=== PATIENT | female | born 1975 | race African-American/Black ===

== ENCOUNTER 2021-01-21 14:21 | Emergency (ER) | payer BC ==
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
[2021-01-21 15:19] LABS: Absolute Lymphocytes (CBC) 2.7 K/uL (0.7-4.9); Basophils % 0.9 % (0-1.3); Hematocrit 33.5 % (36.0-45.0); Lymphocytes % 25.2 % (15.3-44.8); MPV 6.9 fL (7.6-11.3); RBC Red Blood Cell Count 4.57 M/uL (3.86-4.86)
[2021-01-21 15:22] LABS: Protime INR 0.95
[2021-01-21] MEDS ORDERED: KETOROLAC 30 MG/ML INJ ONE (15:24)
[2021-01-21] MEDS ORDERED: NA CHLORIDE 0.9% 500 ML ONE (15:24)
[2021-01-21 15:36] LABS: ALT/SGPT 21 U/L (12-78); AST/SGOT 13 U/L (15-37); Albumin 3.5 g/dL (3.4-5.0); Alkaline Phosphatase 81 U/L (45-117); BUN Blood Urea Nitrogen 12 mg/dL (7-18); Bicarbonate 26 mmol/L (21-32); Bilirubin Direct < 0.1 mg/dL (0-0.2); Bilirubin Total 0.3 mg/dL (0.2-1.0); Glucose Level 221 mg/dL (74-106); Magnesium 2.2 mg/dL (1.8-2.4); NT PRO-BNP 28 pg/mL (<125); Potassium 3.9 mmol/L (3.5-5.1); Protein, Total 8.2 g/dL (6.4-8.2); Sodium Level 137 mmol/L (136-145); Troponin (Emerg Dept Use Only) < 0.02 ng/mL (0.0-0.045)
[2021-01-21 16:00] LABS: SARS-COV-2 RT PCR NEGATIVE (NEGATIVE)
--- NOTE | 2021-01-21 16:03 | RAD REPORT ---
EXAM DESCRIPTION: RAD - Chest Single View - 01/21/2021 3:57 pm CLINICAL HISTORY: CHEST PAIN Chest pain. COMPARISON: No comparisons FINDINGS: Portable technique limits examination quality. The lungs are grossly clear. The heart is normal in size. No displaced fractures. IMPRESSION: No acute intrathoracic process suspected.
[2021-01-21 16:20] LABS: Urine Blood Negative (Negative); Urine Glucose 3+ (Negative); Urine Protein Trace (Negative); Urine Specific Gravity 1.025 (1.005-1.030); Urine pH 5.5 (5.0-7.0)
[2021-01-21 16:38] LABS: Urine Specific Gravity/Preg 1.025 (1.005-1.030)
[2021-01-21 17:02] LABS: Urine Bacteria LOADED /HPF (<20); Urine RBC NONE SEEN /HPF (NONE SEEN)
--- NOTE | 2021-01-21 17:20 | RAD REPORT ---
EXAM DESCRIPTION: CT - Chest For Pe Angio - 01/21/2021 4:40 pm CLINICAL HISTORY: Chest pain. Chest pain;SOB COMPARISON: <Comparisons> TECHNIQUE: CT angiogram of the pulmonary arteries was performed with MIP. All CT scans are performed using dose optimization technique as appropriate and may include automated exposure control or mA/KV adjustment according to patient size. FINDINGS: No evidence of pulmonary thromboembolism. No acute aortic finding demonstrated. The lungs are clear. No significant pericardial or pleural fluid. No concerning bony finding. IMPRESSION: No evidence of pulmonary thromboembolism. No acute lung findings.
[2021-01-21] MEDS ORDERED: CEFTRIAXONE/SWI 1gm 1 GM/10 ML SYR ONE (17:41)
--- NOTE | 2021-01-21 18:49 | ER ---
Nurse's Notes [facility] Name: Frida Arriola Age: 45 yrs Sex: Female : 1975 Arrival Date: 01/21/2021 Time: 14:23 Bed 5 Private MD: Diagnosis: Other chest pain;Urinary tract infection, site not specified Presentation: 01/21 14:32 Chief complaint: Patient states: fatigue, chest soreness with breathing, cough x 1 sv week. Coronavirus screen: Client denies travel out of the [place] in the last 14 days. Client presents with at least one sign or symptom that may indicate coronavirus-19. Standard/surgical mask placed on the client. Provider contacted for isolation considerations. Ebola Screen: No symptoms or risks identified at this time. Initial Sepsis Screen: Does the patient meet any 2 criteria? HR > 90 bpm. No. Patient's initial sepsis screen is negative. Does the patient have a suspected source of infection? No. Patient's initial sepsis screen is negative. Risk Assessment: Do you want to hurt yourself or someone else? Patient reports no desire to harm self or others. Onset of symptoms was January 2021. 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 Flu vaccine is not up to date. - Social history:: Smoking status: Patient denies any tobacco usage or history of. Screenin:36 Abuse screen: Denies threats or abuse. Denies injuries from another. Nutritional hb screening: No deficits noted. Tuberculosis screening: No symptoms or risk factors identified. Fall Risk None identified. Assessment: 15:35 General: Appears in no apparent distress. Behavior is calm, cooperative. Pain: Pain hb currently is 7 out of 10 on a pain scale. Neuro: Level of Consciousness is awake, alert, obeys commands, Oriented to person, place, time, situation. Cardiovascular: Reports chest pain, Patient's skin is warm and dry. Rhythm is regular. Respiratory: Respiratory effort is even, unlabored, Respiratory pattern is regular, symmetrical. GI: Reports nausea. : No signs and/or symptoms were reported regarding the genitourinary system. EENT: No signs and/or symptoms were reported regarding the EENT system. Derm: Skin is pink, warm \T\ dry. Musculoskeletal: Reports generalized weakness. 16:30 Reassessment: Patient appears in no apparent distress at this time. Patient and/or hb family updated on plan of care and expected duration. Pain level reassessed. Patient is alert, oriented x 3, equal unlabored respirations, skin warm/dry/pink. 17:53 Reassessment: Patient appears in no apparent distress at this time. No changes from hb previously documented assessment. Patient and/or family updated on plan of care and expected duration. Pain level reassessed. Patient is alert, oriented x 3, equal unlabored respirations, skin warm/dry/pink. 18:29 Reassessment: Patient appears in no apparent distress at this time. No changes from hb previously documented assessment. Patient and/or family updated on plan of care and expected duration. Pain level reassessed. Patient is alert, oriented x 3, equal unlabored respirations, skin warm/dry/pink. Vital Signs: 14:32 BP 113 / 78; Pulse 100; Resp 18; Pulse Ox 100% ; Weight 90.72 kg; Height 5 ft. 7 in. sv (170.18 cm); Pain 7/10; 15:36 BP 129 / 90; Pulse 90; Resp 17; Pulse Ox 99% on R/A; hb 16:30 BP 135 / 89; Pulse 87; Resp 15; Pulse Ox 99% ; hb 17:53 BP 135 / 84; Pulse 88; Resp 16; Pulse Ox 99% on R/A; hb 18:29 BP 141 / 99; Pulse 86; Resp 15; Pulse Ox 99% on R/A; hb 14:32 Body Mass Index 31.32 (90.72 kg, 170.18 cm) sv ED Course: 14:23 Patient arrived in ED. ds1 14:26 Timothy France PA is PHCP. cp 14:26 Bill Gamboa MD is Attending Physician. cp 14:33 Triage completed. sv 14:34 Arm band placed on. sv 15:00 Inserted saline lock: 20 gauge in right antecubital area, using aseptic technique. kj1 Blood collected. 15:00 Initial lab(s) drawn, by ca, sent to lab. kj1 15:34 Brianna Moody, RN is Primary Nurse. hb 15:36 Patient has correct armband on for positive identification. Bed in low position. Call hb light in reach. 15:37 Notified Nurse Practitioner and/or Physician Pipe Testing Technician of a critical lab result(s), sv [id number]. 15:37 LFT's Sent. sv 15:37 Magnesium Sent. sv 15:37 NT PRO-BNP Sent. sv 15:37 Basic Metabolic Panel Sent. sv 15:57 XRAY Chest (1 view) In Process Unspecified. EDMS 16:40 CT Chest For PE Angio In Process Unspecified. EDMS 18:52 No provider procedures requiring assistance completed. IV discontinued, intact, ss bleeding controlled, No redness/swelling at site. Pressure dressing applied. Administered Medications: 15:10 Drug: TORadol - (ketorolac) 15 mg Route: IVP; Site: right antecubital; hb 18:53 Follow up: Response: No adverse reaction; Pain is decreased ss 15:11 Drug: NS 0.9% 500 ml Route: IV; Rate: bolus; Site: right antecubital; hb 16:00 Follow up: IV Status: Completed infusion ss 17:28 Drug: Rocephin (cefTRIAXone) 1 grams Route: IV; Rate: calculated rate; Site: right ss antecubital; 17:30 Follow up: IV Status: Completed infusion; IV Intake: 500ml ss Intake: 17:30 IV: 500ml; Total: 500ml. Outcome: 18:48 Discharge ordered by . cp 18:52 Discharged to home ambulatory, with family. ss 18:52 Condition: good 18:52 Discharge instructions given to patient, family, Instructed on discharge instructions, follow up and referral plans. medication usage, Demonstrated understanding of instructions, follow-up care, medications, Prescriptions given X 2. 18:56 Patient left the ED. hb Addendum: 01/25/2021 13:17 Addendum: Culture Results: Positive urine culture. No further action required. Bacteria s s sensitive to prescribed antibiotic. Signatures: Dispatcher [employer] Holley Solorio RN RN Kirstin De Jesus ds1 Vira Martinez RN RN Timothy Rodriguez PA PA cp Baxter, Heather, RN RN hb Jackson, Kandis kj1 Corrections: (The following items were deleted from the chart) 01/21 15:34 15:33 Initial lab(s) drawn, by me, sent to lab. carlita kj1
--- NOTE | 2021-01-21 18:49 | EDPHYS ---
Physician Documentation [facility] Name: Frida Arriola Age: 45 yrs Sex: Female : 1975 Arrival Date: 01/21/2021 Time: 14:23 Bed 5 Private MD: ED Physician Bill Gamboa HPI: 01/21 14:50 This 45 yrs old Black Female presents to ER via Ambulatory with complaints of Chest cp Soreness, Weakness, Shortness Of Breath. 14:50 The patient or guardian reports chest pain that is located primarily in the anterior cp chest wall, bilaterally. 14:50 Onset: 1 week(s) ago. cp 14:50 The pain does not radiate. Associated signs and symptoms: Pertinent positives: cough, cp general weakness, Pertinent negatives: abdominal pain, diaphoresis, dizziness, lower extremity pain, lower extremity swelling, palpitations, syncope, vomiting. The chest pain is described as aching. Duration: The patient or guardian reports multiple episodes, that wax and wane. 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 Flu vaccine is not up to date. - Social history:: Smoking status: Patient denies any tobacco usage or history of. ROS: 14:55 Constitutional: Negative for body aches, chills, fever, poor PO intake. cp 14:55 Eyes: Negative for injury, pain, redness, and discharge. cp 14:55 ENT: Negative for ear pain, sore throat, difficulty swallowing, difficulty handling cp secretions. 14:55 Cardiovascular: Positive for chest pain, Negative for edema, palpitations. 14:55 Respiratory: Positive for cough, with no reported sputum, shortness of breath, Negative for wheezing. 14:55 Abdomen/GI: Negative for abdominal pain, nausea, vomiting, and diarrhea. 14:55 Neuro: Positive for weakness, Negative for altered mental status, dizziness, headache, syncope. 14:55 All other systems are negative. Exam: 14:55 ECG was reviewed by the Attending Physician. cp 15:00 Constitutional: The patient appears in no acute distress, alert, awake, cp non-diaphoretic, non-toxic, well developed, well nourished. 15:00 Head/Face: Normocephalic, atraumatic. cp 15:00 Eyes: Periorbital structures: appear normal, Conjunctiva: normal, no exudate, no cp injection, Sclera: no appreciated abnormality, Lids and lashes: appear normal, bilaterally. 15:00 ENT: External ear(s): are unremarkable, Nose: is normal, Mouth: Lips: moist, Oral mucosa: pink and intact, moist, Posterior pharynx: Airway: no evidence of obstruction, patent, Tonsils: are normal in appearance, swelling, is not appreciated, erythema, is not appreciated, exudate, is not appreciated. 15:00 Neck: ROM/movement: is normal, is supple, without pain, no range of motions limitations. 15:00 Chest/axilla: Inspection: normal, Palpation: crepitus, is not appreciated, tenderness, that is mild, of the anterior aspect of right upper chest, anterior aspect of left upper chest and mid-sternal area. 15:00 Cardiovascular: Rate: tachycardic, Rhythm: regular, Edema: is not appreciated, JVD: is not appreciated. 15:00 Respiratory: the patient does not display signs of respiratory distress, Respirations: normal, no use of accessory muscles, no retractions, labored breathing, is not present, Breath sounds: are clear throughout, no decreased breath sounds, no stridor, no wheezing. 15:00 Abdomen/GI: Inspection: abdomen appears normal, Palpation: abdomen is soft and non-tender, in all quadrants. 15:00 Back: pain, is absent, ROM is normal. 15:00 Skin: cellulitis, is not appreciated, no rash present. cp 15:00 Neuro: Orientation: is normal, Mentation: is normal, Motor: moves all fours, strength is normal. Vital Signs: 14:32 BP 113 / 78; Pulse 100; Resp 18; Pulse Ox 100% ; Weight 90.72 kg; Height 5 ft. 7 in. sv (170.18 cm); Pain 7/10; 15:36 BP 129 / 90; Pulse 90; Resp 17; Pulse Ox 99% on R/A; hb 16:30 BP 135 / 89; Pulse 87; Resp 15; Pulse Ox 99% ; hb 17:53 BP 135 / 84; Pulse 88; Resp 16; Pulse Ox 99% on R/A; hb 18:29 BP 141 / 99; Pulse 86; Resp 15; Pulse Ox 99% on R/A; hb 14:32 Body Mass Index 31.32 (90.72 kg, 170.18 cm) sv MDM: 14:33 Patient medically screened. cp 15:00 Differential diagnosis: abnormal EKG, acute myocardial infarction, acute pericarditis, cp chest wall pain, costochondritis, pleurisy, pneumonia, pneumothorax, pulmonary embolus. 18:47 Data reviewed: vital signs, nurses notes, lab test result(s), EKG, radiologic studies, cp CT scan, plain films. 18:47 Test interpretation: by ED physician or midlevel provider: ECG, plain radiologic cp studies. 18:47 ED course: VSS. Labs, EKG and radiology studies reviewed. Symptoms improved. Low cp suspicion for cardiac cause of chest pain. Will discharge to home for continued monitoring. 01/21 14:45 Order name: Basic Metabolic Panel cp 01/21 14:45 Order name: CBC with Diff; Complete Time: 15:22 cp 01/21 15:23 Interpretation: Normal except: HGB 10.8; HCT 33.5; MCV 73.2; MCH 23.5; PLT 496; RDW cp 17.4; MPV 6.9. 01/21 14:45 Order name: LFT's cp 01/21 14:45 Order name: Magnesium cp 01/21 14:45 Order name: NT PRO-BNP cp 01/21 14:45 Order name: PT-INR; Complete Time: 16:20 cp 01/21 14:45 Order name: Troponin (emerg Dept Use Only); Complete Time: 15:37 cp 01/21 14:45 Order name: D-Dimer; Complete Time: 16:20 cp 01/21 14:45 Order name: Basic Metabolic Panel; Complete Time: 15:37 EDMS 01/21 14:45 Order name: Liver (Hepatic) Function; Complete Time: 15:37 EDMS 01/21 14:45 Order name: Magnesium; Complete Time: 15:37 EDMS 01/21 14:45 Order name: NT PRO-BNP; Complete Time: 15:37 EDMS 01/21 14:45 Order name: XRAY Chest (1 view); Complete Time: 16:20 01/21 14:45 Order name: EKG; Complete Time: 14:46 01/21 14:45 Order name: Cardiac monitoring; Complete Time: 15:11 01/21 14:45 Order name: EKG - Nurse/Tech; Complete Time: 15:11 01/21 14:45 Order name: IV Saline Lock; Complete Time: 15:11 01/21 14:45 Order name: Labs collected and sent; Complete Time: 15:11 01/21 15:38 Order name: CT Chest For PE Angio; Complete Time: 17:25 01/21 17:25 Interpretation: Report reviewed. 01/21 16:00 Order name: COVID-19/FLU A+B; Complete Time: 16:20 EDPA 01/21 16:20 Order name: Urine Dipstick-Ancillary; Complete Time: 17:14 EDPA 01/21 17:14 Interpretation: Normal except: UGLUC 3+; UPROT Trace; U NIT Positive. 01/21 16:21 Order name: Urine Microscopic Only; Complete Time: 17:14 01/21 17:14 Interpretation: Normal except: UWBC 5-10; UBACT LOADED. 01/21 16:21 Order name: Urine --Ancillary (enter results); Complete Time: 17:14 01/21 17:03 Order name: Urine Culture [facility] 01/21 17:54 Order name: Troponin I 01/21 14:45 Order name: O2 Per Protocol; Complete Time: 15:11 01/21 14:45 Order name: O2 Sat Monitoring; Complete Time: 15:11 01/21 14:45 Order name: Urine Dipstick-Ancillary (obtain specimen); Complete Time: 17:22 01/21 14:45 Order name: Urine Test (obtain specimen); Complete Time: 17:22 cp EC:55 Rate is 96 beats/min. Rhythm is regular. WV interval is normal. QRS interval is normal. cp QT interval is normal. T waves are Inverted in leads III, aVR. Interpreted by me. Reviewed by me. Administered Medications: 15:10 Drug: TORadol - (ketorolac) 15 mg Route: IVP; Site: right antecubital; hb 18:53 Follow up: Response: No adverse reaction; Pain is decreased ss 15:11 Drug: NS 0.9% 500 ml Route: IV; Rate: bolus; Site: right antecubital; hb 16:00 Follow up: IV Status: Completed infusion ss 17:28 Drug: Rocephin (cefTRIAXone) 1 grams Route: IV; Rate: calculated rate; Site: right ss antecubital; 17:30 Follow up: IV Status: Completed infusion; IV Intake: 500ml ss Disposition: 18:58 Co-signature as Attending Physician, Bill Gamboa MD. rn Disposition: 01/21/21 18:48 Discharged to Home. Impression: Other chest pain, Urinary tract infection, site not specified. - Condition is Stable. - Discharge Instructions: Nonspecific Chest Pain, Urinary Tract Infection, Adult, Aspirin and Your Heart. - Prescriptions for Augmentin 875- 125 mg Oral Tablet - take 1 tablet by ORAL route every 12 hours for 10 days; 20 tablet. Diclofenac Sodium 75 mg Oral Tablet, Delayed Release (E.C.) - take 1 tablet by ORAL route 2 times per day; 20 tablet. - Medication Reconciliation Form, Thank You Letter, Antibiotic Education, Prescription Opioid Use form. - Follow up: Private Physician; When: 2 - 3 days; Reason: Recheck today's complaints. - Problem is new. - Symptoms have improved. Signatures: Dispatcher [employer] Holley Solorio, Bill Guthrie RN, MD MD rn Smirch, Shelby, RN RN Timothy France PA PA cp Brianna Moody RN RN hb Corrections: (The following items were deleted from the chart) 15:22 14:46 CORONAVIRUS+MR.LAB.BRZ ordered. EDPA EDPA 15:44 14:46 Influenza Screen (A \T\ B)+BA.LAB.BRZ ordered. EDPA EDMS 18:56 18:48 01/21/2021 18:48 Discharged to Home. Impression: Other chest pain; Urinary tract hb infection, site not specified. Condition is Stable. Forms are Medication Reconciliation Form, Thank You Letter, Antibiotic Education, Prescription Opioid Use. Follow up: Private Physician; When: 2 - 3 days; Reason: Recheck today's complaints. Problem is new. Symptoms have improved. cp
[2021-01-21 21:35] VITALS: BP 113/78; O2SAT 100
--- NOTE | 2021-01-22 07:15 | EKG ---
Test Date: 2021-01-21 Test Time: 14:54:12 Sweat Box Attendant: DELFINA MEASUREMENT RESULTS: Intervals: Rate: 96 NM: 166 QRSD: 88 QT: 354 QTc: 447 [place]: P: 58 NM: 166 QRS: 28 T: -3 INTERPRETIVE STATEMENTS: Normal sinus rhythm Minimal voltage criteria for LVH, may be normal variant Borderline ECG No previous ECG available for comparison Electronically Signed On 01-22-21 07:14:02 CDT by Johnny Lopez
== END 2021-01-21 18:56 | disposition home or self-care (01) ==
LOC: ER 14:21
DX: N39.0 Urinary tract infection, site not specified (principal); Z20.822 Contact with and (suspected) exposure to COVID-19; I10 Essential (primary) hypertension
CPT/HCPCS: 96361; 93005; 87088; 85025; 87086; 80048; 36415; 83735; 81025; 85610; 85379; 80076; 84484 ×2; 83880; 0240U; 71275; 71045; 96375; 96374; 99284; Q9967; J0696; J7040; 81003; 81015; 87077; 87186

== ENCOUNTER 2021-01-26 00:45 | Emergency (ER) | payer BC ==
--- OUTSIDE RECORDS SUMMARY | 2021-01-26 00:48 | XMS REPORT | Continuity of Care Document ---
:1975 Author Organization [facility] t Address [address] [place] [address] Care Team Providers Name Role Phone Logan [...] Tobacco use and 2019-10-30 2019-10-30 Never used [facility] ethodist exposure 00:00:00 00:00:00 Alcohol intake 2019-10-30 2019-10-30 Current drinker Josh on Buddhist 00:00:00 00:00:00 of alcohol (finding) Alcohol Comment 2019-03-30 2019-03-30 occasionally. [place] [facility] 00:00:00 00:00:00 Sex Ass[birth year] At [birth year] [facility] ethodist 00:00:00 00:00:00 Smoking Status Start Date Stop Date Source Never smoker [place] Kimberleeis Medications Ordered Filled Start Stop Current [...] times a day. gabapentin 2020-0 Yes 100mg [id number] Take 100 [place] (NEURONTIN) 1-19 [id number] mg by M ethodi 100 mg 01:42: [...] Scheduled 2021-05-13 INFLUENZA VACCINE Mark Anthony kang [facility] Test 00:00:00 [code = INFLUENZA VACCINE] Future Scheduled 1998 Screening for [place] [facility]od[facility] Test 00:00:00 malignant neoplasm of cervix (procedure) [code = 621760818] Future Scheduled 1995 Hepatitis C [place] Met [facility] Test 00:00:00 screening (procedure) [code = 834880450] Future Scheduled 1993 COVID-19 VACCINE (1) Yokasta dasilva [facility] Test 00:00:00 [code = COVID-19 VACCINE (1)] Encounters Start End Encounter Admission Attending Care Care Encounter Source Date/Time Date/Time Type Type Clinicians Facility Department ID 2018-10-30 Inpatient C SPECK, III, [facility] RAD [id number] [facility] 15:45:00 [facility] 2020-01-14 2020-01-14 Emergency E [facility] [id number] [facility] 08:51:00 08:51:00 2019-10-30 2019-10-31 Emergency [facility] [id number] [place] 00:00:00 00:00:00 BECCA Champagne [facility] 2019-10-28 2019-10-28 Outpatient E TIMA CHILDS [facility] ECC [id number] [place] 11:58:00 13:36:00 [facility] 2018-12-15 2018-12-15 Outpatient C SPECK, III, [facility] RAD [id number] [place] 10:37:00 [facility]:59:[facility] 2018-11-17 2018-11-17 Outpatient C SPECK, III, [facility] RAD [id number] [facility] 10:59:00 23:59:00 [facility] 2018-11-10 2018-11-10 Outpatient Alessandro TRIVEDI, [facility] RAD [id number] [place] 09:39:00 23:59:00 [facility] 2018-11-02 2018-11-02 Emergency E MARI, [facility] ECC [id number] [place] 12:49:00 15:49:00 [facility] Results Test Description Test Time Test Comments Results Result [facility] e Comments CT ABDOMEN AND 2019-10-28 CT abdomen and pelvis PELVIS WITH 13:09:15 with contrastLocation CONTRAST *OW* Code: [id number] HISTORY: [id number]: Abdominal painCOMPARISON: NoneTechnique: Helical CT of the [...] 27 U/L 14-97 [employer] 8 Panel *OW* [id number] 12:35:00 Test Item Value Reference Range Interpretation [...] *OW*2018-12-15 11:16:14Left clavicle series, 2 viewsLocation Code: [id number] history: Follow-up fractureComments: AP and l ordotic views of the left clavicle demonstrates nosignificant interval callus formation of the mildly displaced midclavicularfracture when compared to 11/17/18. Acromioclavicular joint is intact. Smallfocus of calcific tendinitis seen adjacent to the humeral head.Impression:1. Stable displaced midclavicular fracture without significant callusformation.XR CLAVICLE LEFT COPLETE 2 VIEWS *OW*2018-11-17 11:42:09Left clavicle series, 2 viewsLocation Code: [id number] history: midshaft fxComparison: 11/02/2018Comments: AP and lordotic views of the left clavicle were obtained. Middiaphyseal fracture with 2 full shaft width inferior displacement is unchanged.There is sclerosis of the fracture margins with no new callus formation.Demonstrate no acute fracture or malalignment. The acromioclavicular andglenohumeral joints are intact.Impression: Stable inferiorly displaced left mid clavicle fracture.WID-U/S [id number] 10:33:09Thyroid ultrasoundLocation code: [id number] history: THYROID NODComparison: NoneTechnique: Grayscaleand selective color [...] 14:42:43HISTORY: MVA, arm pain, chest painLocation code: [id number]: LEFT HUMERUS, 2 VIEWS.LEFT ELBOW, 2 VIEWS.COMPARISON: [...] 14:42:43HISTORY: MVA, arm pain, chest painLocation code: [id number]: LEFT HUMERUS, 2 VIEWS.LEFT ELBOW, 2 VIEWS.COMPARISON: [...] = PGS) NEGATIVE NEGATIVE CBC (INCLUDES AUTOMATED DIFFERENTIAL)*[id number] 13:26:00 Test Item Value Reference Range Interpretation [...]
[2021-01-26 01:21] LABS: Absolute Lymphocytes (CBC) 3.9 K/uL (0.7-4.9); Basophils % 0.1 % (0-1.3); Hematocrit 33.3 % (36.0-45.0); Lymphocytes % 36.1 % (15.3-44.8); MPV 6.7 fL (7.6-11.3); RBC Red Blood Cell Count 4.58 M/uL (3.86-4.86)
[2021-01-26] MEDS ORDERED: MEPERIDINE HCL 25 MG/ML SYR ONE (01:32)
[2021-01-26] MEDS ORDERED: ONDANSETRON 4 MG/2 ML VIAL ONE (01:32)
[2021-01-26 01:33] LABS: BUN Blood Urea Nitrogen 16 mg/dL (7-18); Bicarbonate 29 mmol/L (21-32); Glucose Level 237 mg/dL (74-106); Potassium 4.1 mmol/L (3.5-5.1); Sodium Level 138 mmol/L (136-145)
[2021-01-26] MEDS ORDERED: NA CHLORIDE 0.9% 1,000 ML ONE (01:33)
--- NOTE | 2021-01-26 02:36 | EDPHYS ---
Physician Documentation [facility] Name: Frida Arriola Age: 45 yrs Sex: Female : 1975 Arrival Date: 01/26/2021 Time: 00:46 Bed 6 Private MD: ED Physician Bill Gamboa HPI: 01/26 01:25 This 45 yrs old Black Female presents to ER via Wheelchair with complaints of headache, rn Dizziness. 01:25 The patient complains of pain to the top of head. The patient describes the headache as rn aching. Onset: The symptoms/episode began/occurred 3 day(s) ago. Associated signs and symptoms: Pertinent positives: dizziness, Pertinent negatives: fever, neck stiffness, paresthesias, Photophobia rash, vision changes, vision loss, vomiting, weakness, vertigo. Severity of symptoms: At its worst the pain was moderate, in the emergency department the pain is unchanged. Headache History: Denies prior headaches. The symptoms are alleviated by nothing. the symptoms are aggravated by nothing. The patient has not experienced similar symptoms in the past. The patient has been recently seen by a physician:. Reports seen in this ED recently, diagnosed with UTI, feeling better in terms of that, but now comes in for a few days of headache. Denies prior headaches. No head injury. No fever. Reports aching and radiates to neck. Reports pain is not letting her think straight. No hx of brain problems. No hx of brain aneurysm or tumor in family. . 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 - Social history:: Smoking status: Patient denies any tobacco usage or history of. - Family history:: not pertinent. - Hospitalizations: : No recent hospitalization is reported. ROS: 01:25 Constitutional: Negative for fever, chills, and weight loss, Eyes: Negative for injury, rn pain, redness, and discharge, Neck: Negative for injury, pain, and swelling, Cardiovascular: Negative for chest pain, palpitations, and edema, Respiratory: Negative for shortness of breath, cough, wheezing, and pleuritic chest pain, Abdomen/GI: Negative for abdominal pain, nausea, vomiting, diarrhea, and constipation, Back: Negative for injury and pain, : Negative for injury, bleeding, discharge, and swelling, MS/Extremity: Negative for injury and deformity, Skin: Negative for injury, rash, and discoloration, Neuro: Negative for weakness, numbness, tingling, and seizure. Exam: 01:25 Constitutional: Overweight female, rocking back and forth, moving all extremities. rn Head/Face: Normocephalic, atraumatic. Eyes: Pupils equal round and reactive to light, extra-ocular motions intact. Lids and lashes normal. Conjunctiva and sclera are non-icteric and not injected. Cornea within normal limits. Periorbital areas with no swelling, redness, or edema. Neck: Trachea midline, no thyromegaly or masses palpated, and no cervical lymphadenopathy. Supple, full range of motion without nuchal rigidity, or vertebral point tenderness. No Meningismus. Cardiovascular: Regular rate and rhythm. No pulse deficits. Respiratory: No increased work of breathing, no retractions or nasal flaring. Abdomen/GI: soft, non-tender Skin: Warm, dry, no rashes MS/ Extremity: Pulses equal, no cyanosis. Neuro: Awake and alert, GCS 15, oriented to person, place, time, and situation. Cranial nerves II-XII grossly intact. Motor strength 5/5 in all extremities. Sensory grossly intact. Vital Signs: 00:58 BP 120 / 75; Pulse 97; Resp 18; Temp 98; Pulse Ox 100% on R/A; Weight 90.72 kg; Height mg2 5 ft. 4 in. (162.56 cm); Pain 8/10; 02:30 BP 118 / 80; Pulse 80; Resp 18; Temp 98; Pulse Ox 100% on R/A; mg2 00:58 Body Mass Index 34.33 (90.72 kg, 162.56 cm) mg2 Juan Alberto Coma Score: 02:34 Eye Response: spontaneous(4). Verbal Response: oriented(5). Motor Response: obeys rn commands(6). Total: 15. MDM: 00:48 Patient medically screened. rn 02:34 Differential diagnosis: cluster headache, migraine, tension headache, vasomotor rn headache. Data reviewed: vital signs, nurses notes, lab test result(s), radiologic studies, CT scan, and as a result, I will discharge patient. Counseling: I had a detailed discussion with the patient and/or guardian regarding: the historical points, exam findings, and any diagnostic results supporting the discharge/admit diagnosis, lab results, radiology results, the need for outpatient follow up, to return to the emergency department if symptoms worsen or persist or if there are any questions or concerns that arise at home. Response to treatment: the patient's symptoms have markedly improved after treatment, and as a result, I will discharge patient. Special discussion: I discussed with the patient/guardian in detail that at this point there is no indication for admission to the hospital. It is understood, however, that if the symptoms persist or worsen the patient needs to return immediately for re-evaluation. ED course: Pt markedly improved, sleeping comfortably, stable vitals, afebrile, neg procal, normal wbc, will dc home with return precautions and pcp f/u. . 01/26 01:06 Order name: CBC with Diff rn 01/26 01:06 Order name: Basic Metabolic Panel rn 01/26 01:06 Order name: Procalcitonin rn 01/26 01:23 Order name: CBC with Automated Diff; Complete Time: 02:01 EDND 01/26 01:33 Order name: Basic Metabolic Panel; Complete Time: 02:01 EDND 01/26 02:00 Order name: Procalcitonin; Complete Time: 02:01 EDND 01/26 01:05 Order name: CT Head C Spine rn 01/26 01:05 Order name: IV Start; Complete Time: 01:19 rn Administered Medications: 01:20 Drug: NS 0.9% 1000 ml Route: IV; Rate: 1000 ml; Site: right antecubital; mg2 02:10 Follow up: Response: No adverse reaction; IV Status: Completed infusion; IV Intake: mg2 1000ml 01:20 Drug: Zofran (Ondansetron) 4 mg Route: IVP; Site: right antecubital; mg2 02:09 Follow up: Response: No adverse reaction mg2 01:21 Drug: Demerol (meperidine) 25 mg Route: IVP; Site: right antecubital; mg2 02:09 Follow up: Response: No adverse reaction mg2 Disposition: 01/26/21 02:36 Discharged to Home. Impression: Headache. - Condition is Stable. - Discharge Instructions: General Headache Without Cause. - Medication Reconciliation Form, Thank You Letter, Antibiotic Education, Prescription Opioid Use form. - Follow up: Private Physician; When: As needed; Reason: Recheck today's complaints, Re-evaluation by your physician. - Problem is new. - Symptoms have improved. Signatures: Dispatcher [employer] EDMS Bill Gamboa MD MD rn Gardose, Michele, RN RN mg2 Corrections: (The following items were deleted from the chart) 01:27 01:25 Constitutional: Negative for fever, chills, and weight loss, Eyes: Negative for rn injury, pain, redness, and discharge, Neck: Negative for injury, pain, and swelling, Cardiovascular: Negative for chest pain, palpitations, and edema, Respiratory: Negative for shortness of breath, cough, wheezing, and pleuritic chest pain, Abdomen/GI: Negative for abdominal pain, nausea, vomiting, diarrhea, and constipation, Back: Negative for injury and pain, MS/Extremity: Negative for injury and deformity, Skin: Negative for injury, rash, and discoloration, Neuro: Negative for weakness, numbness, tingling, and seizure, rn 02:43 02:36 01/26/2021 02:36 Discharged to Home. Impression: Headache. Condition is Stable. mg2 Forms are Medication Reconciliation Form, Thank You Letter, Antibiotic Education, Prescription Opioid Use. Follow up: Private Physician; When: As needed; Reason: Recheck today's complaints, Re-evaluation by your physician. Problem is new. Symptoms have improved. rn
--- NOTE | 2021-01-26 02:36 | ER ---
Nurse's Notes [facility] Name: Frida Arriola Age: 45 yrs Sex: Female : 1975 Arrival Date: 01/26/2021 Time: 00:46 Bed 6 Private MD: Diagnosis: Headache Presentation: 01/26 00:58 Chief complaint: Patient states: abhishek been having neck pain and headache on and off for mg2 long time but worse for the last 3 days. i'm on augmentin for UTI. Coronavirus screen: Client denies travel out of the [place] in the last 14 days. At this time, the client does not indicate any symptoms associated with coronavirus-19. Ebola Screen: No symptoms or risks identified at this time. Initial Sepsis Screen: Does the patient meet any 2 criteria? No. Patient's initial sepsis screen is negative. Does the patient have a suspected source of infection? No. Patient's initial sepsis screen is negative. Risk Assessment: Do you want to hurt yourself or someone else? Patient reports no desire to harm self or others. Onset of symptoms was January 24, 2021. 00:58 Method Of Arrival: Wheelchair mg2 00:58 Acuity: ISI 3 mg2 Triage Assessment: 01:01 General: Appears in no apparent distress. uncomfortable, Behavior is cooperative, mg2 restless. Pain: Complains of pain in head and nape. EENT: No signs and/or symptoms were reported regarding the EENT system. Neuro: Level of Consciousness is awake, alert, obeys commands, Oriented to person, place, time, situation. Cardiovascular: Capillary refill < 3 seconds Patient's skin is warm and dry. Respiratory: Airway is patent Respiratory effort is even, unlabored, Respiratory pattern is regular, symmetrical. GI: No signs and/or symptoms were reported involving the gastrointestinal system. : No signs and/or symptoms were reported regarding the genitourinary system. Derm: Skin is intact, is healthy with good turgor, Skin is pink, warm \T\ dry. normal. Musculoskeletal: Circulation, motion, and sensation intact. Capillary refill < 3 seconds. 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 - Social history:: Smoking status: Patient denies any tobacco usage or history of. - Family history:: not pertinent. - Hospitalizations: : No recent hospitalization is reported. Screenin:03 Abuse screen: Denies threats or abuse. Denies injuries from another. Nutritional mg2 screening: No deficits noted. Tuberculosis screening: No symptoms or risk factors identified. 01:03 Fall Risk None identified. mg2 Assessment: 01:02 General: see triage note. mg2 Vital Signs: 00:58 BP 120 / 75; Pulse 97; Resp 18; Temp 98; Pulse Ox 100% on R/A; Weight 90.72 kg; Height mg2 5 ft. 4 in. (162.56 cm); Pain 8/10; 02:30 BP 118 / 80; Pulse 80; Resp 18; Temp 98; Pulse Ox 100% on R/A; mg2 00:58 Body Mass Index 34.33 (90.72 kg, 162.56 cm) mg2 Juan Alberto Coma Score: 02:34 Eye Response: spontaneous(4). Verbal Response: oriented(5). Motor Response: obeys rn commands(6). Total: 15. ED Course: 00:46 Patient arrived in ED. cl3 00:48 Bill Gamboa MD is Attending Physician. rn 00:57 León Romero, LATONYA is Primary Nurse. mg2 01:00 Triage completed. mg2 01:02 Arm band placed on. mg2 01:03 Patient has correct armband on for positive identification. Door closed. Warm blanket mg2 given. 01:03 No provider procedures requiring assistance completed. mg2 01:15 Inserted saline lock: 20 gauge in right antecubital area, using aseptic technique. mg2 Blood collected. 02:40 IV discontinued, intact, bleeding controlled, No redness/swelling at site. Pressure mg2 dressing applied. 10:23 CT Head C Spine In Process Unspecified. EDMS Administered Medications: 01:20 Drug: NS 0.9% 1000 ml Route: IV; Rate: 1000 ml; Site: right antecubital; mg2 02:10 Follow up: Response: No adverse reaction; IV Status: Completed infusion; IV Intake: mg2 1000ml 01:20 Drug: Zofran (Ondansetron) 4 mg Route: IVP; Site: right antecubital; mg2 02:09 Follow up: Response: No adverse reaction mg2 01:21 Drug: Demerol (meperidine) 25 mg Route: IVP; Site: right antecubital; mg2 02:09 Follow up: Response: No adverse reaction mg2 Intake: 02:10 IV: 1000ml; Total: 1000ml. mg2 Outcome: 02:36 Discharge ordered by . rn 02:40 Discharged to home via wheelchair, with family. mg2 02:40 Condition: stable 02:40 Discharge instructions given to patient, family, Instructed on discharge instructions, follow up and referral plans. Demonstrated understanding of instructions, follow-up care. 02:43 Patient left the ED. mg2 Signatures: Dispatcher [employer] EDMS Bill Gamboa MD MD rn Gardose, Michele, RN RN mg2 Lewis, Charde cl3
[2021-01-26 02:56] VITALS: BP 120/75; TEMP 98; O2SAT 100
--- NOTE | 2021-01-26 11:03 | RAD REPORT ---
EXAM DESCRIPTION: Head C Spine Mpr Wo Con 01/26/2021 2:06 AM CDT CLINICAL HISTORY: 45 years, Female, headache, neck pain, non-traumatic, previous neck injury COMPARISON: None.. FINDINGS: Multiple transaxial tomograms of the brain were obtained from the base of the skull to the vertex without contrast. 2-D multiplanar reformats and the coronal and sagittal plane were performed and reviewed. Subsequently multiple axial CT images through the cervical spine were obtained at 2 mm slice thicknes s at 2 mm interval reconstruction. In addition 2-D multiplanar reformats and the sagittal coronal lanie ne were performed and reviewed. An individualized dose optimization technique, Automated Exposure Control, was utilized for the perfo rmed procedure. Head: Brain parenchyma as well as the villalobos and white matter differentiation demonstrate to be unremar kable. There is no midline shift and/or mass effect. There is no evidence for acute hemorrhage and/or infarction. Lateral ventricles and cisterns displace normal appearance. No intra or extra axial fluid collections were seen. The calvarium is intact with no evidence for fracture. The visualized po rtions of the paranasal sinuses and orbits demonstrate to be clear. C-spine: There is slight straightening of the cervical spine perhaps related to position and/or cervi nesha collar. The alignment, vertebral body heights, and disc spaces are normal. There is no evidence of fracture or subluxation. There is minimal anterior spondylosis with a questionable minimal decrea se intervertebral disc height at C5/C6. The spinal canal demonstrate no evidence for significant sten osis. Neural foramina demonstrate to be unremarkable. The uncovertebral joints demonstrate to be norm al. There is no prevertebral soft tissue swelling. Sagittal coronal reformatted images demonstrate no subluxation or bony abnormalities. IMPRESSION: NO ACUTE INTRACRANIAL HEMORRHAGE. GROSSLY UNREMARKABLE CT SCAN OF THE HEAD WITHOUT CONTRAST. CT CERVICAL SPINE NEGATIVE FOR FRACTURE OR SUBLUXATION. Electronically signed by: Denzel Evans MD 01/26/2021 2:09 AM CDT Due to temporary technical issues with the PACS/Fluency reporting system, reports are being signed by the in house radiologist without review as a courtesy to ensure prompt reporting. The interpreting r adiologist is fully responsible for the content of the report.
== END 2021-01-26 02:43 | disposition home or self-care (01) ==
LOC: ER 00:45
DX: R51.9 Headache, unspecified (principal); I10 Essential (primary) hypertension; E11.9 Type 2 diabetes mellitus without complications
CPT/HCPCS: 96361; 85025; 80048; 36415; 84145; 70450; 72125; 96375; 96374; 99284; J2175; J7030; J2405

== ENCOUNTER 2022-10-30 14:49 | Emergency (ER) | payer OTHER ==
--- OUTSIDE RECORDS SUMMARY | 2022-10-30 15:04 | XMS REPORT | Continuity of Care Document ---
:1975 Author Organization [facility] t Address [address] [place] [address] Care Team Providers Name Role Phone DI COTTON Primary Care Physician Unavailable DR DI COTTON Attending Clinician Unavailable [phone] Attending Clinician Unavailable [id number] Attending Clinician Unavailable DR KARTIK BORREGO Attending Clinician Unavailable [phone] Attending Clinician Unavailable DENZEL TRINIDAD Attending Clinician Unavailable LUCY RESENDIZ Attending Clinician Unavailable NILDA WILDER DR FRED [place] Attending Clinician Unavailable Nichole Ulloa MD Attending Clinician DR ALICIA SUBRAMANIAN Attending Clinician Unavailable NICHOLE ULLOA Attending Clinician Unavailable Clarissa HANKS, Taylor Attending Clinician Unavailable Betsy Levi MD Attending Clinician BETSY LEVI Attending Clinician Unavailable DR SONAL MERCEDES Attending Clinician UnavailNICHOLE Courtney Attending Clinician Unavailable DR GLYNN SPAULDING Attending Clinician Unavailable [phone] Attending Clinician Unavailable Denzel Trinidad MD Attending Clinician Bruce HARGROVE, Klaudia Jade Attending Clinician [phone] KLAUDIA BARRERA ABA Attending Clinician Unavailable Prema Guerra NP Attending Clinician [phone] NAIN RÍOS Attending Clinician Unavailable [phone] Attending Clinician Unavailable ISMAEL JIMENEZ Attending Clinician Unavailable BEATRIS HO Attending Clinician Unavailable Vic HARGROVE, Beatris Attending Clinician Ismael Jimenez MD Attending Clinician [phone] JOSUÉ VALDEZ Attending Clinician Unavailable [phone] Attending Clinician Unavailable MANNY SEGUNDO Attending Clinician Unavailable Manny Segundo MD Attending Clinician Kaela Lomax RN Attending Clinician Unavailable Carmel Jade MD Attending Clinician Biju Mendoza Attending Clinician [facility] Attending Clinician Unavailable Rianna Weinstein RN Attending Clinician Unavailable Antonio Valentine RN Attending Clinician Unavailable PREMA GUERRA Attending Clinician Unavailable Winnie Tipton RN Attending Clinician Unavailable AMEYA COFFEY Attending Clinician Unavailable Virtual, Surgeon Attending Clinician Unavailable Zain Dior Attending Clinician Unavailable Shaye Loza MD Attending Clinician [phone] SHAYE LOZA Attending Clinician Unavailable Maksim Rodriguez Attending Clinician Unavailable 3, [facility] Attending Clinician Unavailable Julien Sotomayor MA Attending Clinician Unavailable Pawan Hercules MD, Terry Macdnoald Attending Clinician [phone] LIZZ CHARLTON Attending Clinician Unavailable MACK Attending Clinician Unavailable Daniel Attending Clinician Unavailable MARINA BOYCE Attending Clinician Unavailable BECCA GARY Attending Clinician Unavailable DR TIMA CHILDS Attending Clinician Unavailable PEPPER TRIVEDI Attending Clinician Unavailable DR DOMINIC GUERRA Attending Clinician Unavailable BACCAM, DR SEVILLA Admitting Clinician Unavailable LESANTI, DR VERDUGO Admitting Clinician Unavailable DENZEL TRINIDAD Admitting Clinician Unavailable RESENDIZ, LUCY GODWIN Admitting Clinician Unavailable SPECK, III, DR YAAKOV MANCIA Admitting Clinician Unavailable MORIS, DR VARGAS Admitting Clinician Unavailable MERCEDES, DR SONAL BECK Admitting Clinician Unavailsapphire SPAULDING, DR MAKI Admitting Clinician Unavailable KHUSHBU, DR GILLETTE Admitting Clinician Unavailable FOHuberT, DR MOSES Admitting Clinician Unavailable MACK Admitting Clinician Unavailable Johnny_Zaina Admitting Clinician Unavailable AMADEO, DR ALFRED Admitting Clinician Unavailable PEPPER TRIVEDI Admitting Clinician Unavailable ARTEMIO, DR DOMINIC Chaves Admitting Clinician Unavailable Payers Payer Name Policy Type Policy Number Effective Date Expiration Date S ource BCBS/BLUE [id number] ADVANTAGE-HMO - OP BCBS/[place]UE [id number] ADVANTAGE-HMO - OP BCBS ADV HMO [id number] 2021 EXCHANGE 00:00:00 0345 [id number] 2022 00:00:00 BLUE ADVANTAGE [id number] 2021 HMO-MARKETPLACE - 00:00:00 BCBS [id number] 2022 00:00:00 [place] [id number] 2020 ADVANTAGE (HMO) 00:00:00 Problems Condition Condition Condition Status Onset Resolution Last Treating Co mments Source Name Details Category Date Date Treatment Clinician Date Hepatocell Hepatocell Disease Active 2021-[address] ular ular 2-23 [facility] carcinoma carcinoma 00:00: Medi nesha 00 Center Abnormal Abnormal Disease Active 2021[facility] liver liver [facility]23 [facility] enzymes enzymes 00:00: Medical 00 Center Umbilical Umbilical Disease Active Last [facility] hernia hernia 7- [facility] 00:00: t & Plan: Medical 00 [facility] g of this note might be different from the original. She has a small and reducible umbilical hernia which is causing her to have pain near the umbilicus . We will refer her to Dr. Bridget Perry for hernia repair. Recommend use of abdominal binder with activity and limiting heavy lifting. Post-opera Post-opera Disease Active Last [facility] complicati [facility]: t & Plan: Medical on on [facility] g of this note might be different from the original. She continues to have numbness surroundi ng her abdominal incision. Numbness resulted in accidenta l burn on her abdomen while cooking. Recommend continued precautio ns due to areas of numbness. Sore Sore Disease Active Last [facility] throat throat 02-07 [facility] 00:00: t & Plan: Medical 00 [facility] g of this note might be different from the original. We encourage d her to follow up with PCP for throat culture and further evaluatio n of sore throat. She is currently taking Nyquil to assist with pain. DVT (deep DVT (deep Disease Active [facility] venous venous 18 [facility] thrombosis thrombosis 00:00: t & Plan: Medical ) ) 00 [facility] g of this note might be different from the original. She will continue to follow up with Hematolog y for managemen t of anticoagu lation. Bilateral Bilateral Disease Active [facility] extremity extremity 00:00: t & Plan: M edical edema edema 00 [facility] g of this note might be different from the original. Trace bilateral lower extremity edema present on exam. She has been taking lasix to assist with diuresis. She reports good fluid intake. Wearing compressi on garments at home. We will refill additiona l one week supply of Lasix today if labs are WDL. Acute Acute Disease Active [facility] blood loss blood loss 3-30 [facility] anemia anemia 00:00: Medical [place] Hyperlipid Hyperlipid Disease Active [facility] emia emia 3-30 [facility] 00:00: Medical 00 [place] Essential Essential Disease Active Last [facility] hypertensi hypertensi 3-30 [facility] on on 00:00: t & Plan: Medical 00 [facility] g of this note might be different from the original. Continue to take blood pressure medicatio ns as prescribe d. Follow up with PCP as scheduled . Anxiety Anxiety Disease Active [facility] 3-30 [facility] 00:00: Medical 00 [place] Acute Acute Disease Active Last [facility] post-opera post-opera 3-30 [facility] tive pain tive pain 00:00: t & Plan: M edical 00 [facility] g of this note might be different from the original. She reports pain at the incision since her operation . There has been difficult ies with finding an appropria te regimen to manage pain. She is taking Rupert as needed and Tylenol at this time. We recommend she no longer use Rupert and start alternati ng Tylenol #3 and Tylenol to assist with pain control. We also discussed splinting abdomen, and increasin g physical activity as able. Nausea Nausea Disease Active [facility] 3-30 [facility] 00:00: Medical [address] [place] [address] Acute Acute Disease Active Last [facility] respirator respirator 3-30 [facility] y y 00:00: t & Plan: Medical insufficie insufficie [address] [place] [address] ncy ncy g of this note might be different from the original. She no longer requires supplemen nataliya oxygen and reports no shortness of breath in clinic today. Hyperchlor Hyperchlor Disease Active [facility] emia emia 3-30 [facility] 00:00: Medical 00 [place] Hypophosph Hypophosph Disease Active [facility] atemia atemia 3-30 [facility] 00:00: Medical 00 [place] Diabetic Diabetic Disease Active [facility] neuropathy neuropathy 3-30 [facility]ie k[facility] 00:00: Medical [address] [place] [address] Leukocytos Leukocytos Disease Active [facility] is is 3-30 [facility] 00:00: t & Plan: Medical [address] [place] [address] g of this note might be different from the original. WBC continues to increase. Patient reports fevers. We will obtain cross sectional imaging to rule out intra-abd ominal infection . H/O H/O Disease Active Last [facility] resection resection 329 Ass[facility] L ukes of liver of liver 00:00: t & Plan: Med ical [address] [place] [address] g of this note might be different from the original. She will continue to follow up with Oncology for managemen t and treatment of biopsy proven HCC. We will plan to obtain cross sectional imaging every three months to continue to monitor. Planning to have MRI this afternoon . Hepatocell Hepatocell Disease Active [facility] 3-11 [place] carcinoma carcinoma 00:00: of (HCCode) (HCCode) 00 Medici n e Preop Preop Disease Active Overview: [facility] cardiovasc cardiovasc 2 [facility] ular exam ular exam 00:00: g of this o f 00 note Medicin might be e different from the original. Pt with multiple cardiac risk factors requiring pre-op cardiac clearance PLAN:1. Schedule echocardi ogram to evaluate LVEF due to SOB and valvular heart diseaese Sinus Sinus Disease Active Overview: [facility] tachycardi tachycardi 11-21 [facility] a a 00:00: g of this of note Medicin might be e different from the original. Hx of Sinus tachycard ia on toprol xl 100 mgPLAN:1. Check labs including TSH and CBC to evaluate cause2. Check echo3. Continue current medicatio ns. Essential Essential Disease Active Overview: [facility] hypertensi hypertensi 11-21 [facility] on on 00:00: g of this note Medicin might be e different from the original. HTN controlle d on current medicatio ns.PLAN:1 . Continue lisinopri l-hztc and toprol xl. Pre-op Pre-op Disease Active Last [facility] examinatio examinatio 2-03 [facility] kang n 00:00: t & Plan: Medical [address] [place] [address] g of this note might be different from the original. She has been cleared by Rupesh feliciano - Dr. Stark. She is pending cardiolog y clearance from Dr. Villalta - Cardiolog y. Diabetes Diabetes Disease Active [facility] 2-[facility] 00:00: t & Plan: Medical [address] [place] [address] g of this note might be different from the original. Se reports blood glucoses are well controlle d on current regimen. She will continue to follow up with PCP. Liver Liver Disease Active Last [facility] lesion lesion 5-19 [facility]men [facility] 00:00: t & Plan: Medical [address] [place] [address] g of this note might be different from the original. She will continue to follow up with Oncology for managemen t and treatment of biopsy proven HCC. We will plan to obtain cross sectional imaging every three months to continue to monitor. Immunity Immunity Disease Active [facility] testing testing 00:00: t & Plan: Medic al [address] [place] [address] g of this note might be different from the original. All patients with liver disease, regardles s of etiology, should be immunized to prevent hepatitis A and hepatitis B if they are not already immune. We will test for immunity to both viruses - vaccine recommend ations will follow. Adnexal Adnexal Disease Active Last [facility] St mass mass 02-28 Ass[facility]men [facility] 00:00: t & Plan: Medical [address] [place] [address] g of this note might be different from the original. CT shows right adenexa solid mass which is concernin g for ovarian neoplasm vs. Fibroid. Continue to follow up with Gynecolog y for further investiga tion. Obesity Obesity Disease Active Last [facility] 02-28 [facility] 00:00: t & Plan: Medical [address] [place] [address] g of this note might be different from the original. The patient's current BMI is 34. Obesity is an establish ed risk factor for vascular complicat ions (ie coronary artery disease, cerebrova scular disease, periphera l vascular disease), osteoarth ritis, pulmonary disease, as well as the developme nt of non-alcoh olic fatty liver disease and the risk for non-alcoh olic steatohep atitis. We have recommend ed a structure d weight loss program (10% body weight initially ), along with dietary modificat ions and regular exercise for overall good health and to minimize the risk of obesity -related surgical complicat ions. We recommend follow up with Bariatric s to discuss possible gastric sleeve or other surgical options for weight loss. She will follow up with PCP for referral. Allergies, Adverse Reactions, Alerts Allergy Allergy Status Severity Reaction(s) Onset Inactive Treating Comm ents Source Name Type Date Date Clinician No Known DA Active [facility] Allergie [facility] s No Known MA Active UNKNOWN [facility] No Known MA Active UNKNOWN [facility] No Known MA Active UNKNOWN [facility] NO KNOWN Allergy Active [facility] Family History Family Member Diagnosis Comments Start Date Stop Date Source Natural father Diabetes [facility] Natural mother Diabetes [facility] Natural mother Hypertension [facility] Natural sister Diabetes [facility] Natural sister Hypertension [facility] Social History Social Habit Start Date Stop Date Quantity Comments Source History [facility] Alcohol Std Drinks Medici ne History [facility] of Alcohol Binge Medicine Alcohol intake 2022-10-09 2022-10-09 Ex-drinker [facility] 00:00:00 00:00:00 (finding) [facility] Exposure to 2022-05-07 2022-05-17 Not sure [facility] e of SARS-CoV-2 (event) 00:00:00 11:21:00 Medici ne History [facility] 2021-10-24 2021-10-24 1 [facility] of Alcohol Frequency 00:00:00 00:00:00 Medicin e Tobacco use and 2021-02-26 2021-02-26 Never used [facility] St Angie ch exposure 00:00:00 00:00:00 [facility] Alcohol Comment 2019-03-30 2019-03-30 occasionally. Method ist 00:00:00 00:00:00 Hospital Sex Assigned At [birth year] SANDEE Jones 00:00:00 00:00:00 [facility] Smoking Status Start Date Stop Date Source Never smoker [facility] Medications Ordered Filled Start Stop Current Ordering Indication Dosage Frequency Signature Comments Components Source Medication Medication Date Date Medication? Clinician (SIG) Name Name insulin 2021-[address] [facility] 70/30, 2-28 subcutaneo [facility] insulin 10:52: usly 2 Medical NPH-insulin 33 (two) Center regular, times (HumuLIN daily 70/30) 100 before unit/mL meals. (70-30) injection metFORMIN 2021-10 Yes 1000mg Take 1,[address] [facility] (GLUCOPHAGE 2-28 mg by [facility] ) 1000 MG 10:52: mouth 2 Medic al tablet 33 (two) Center times daily with breakfast and dinner. hydrOXYzine 2022-1 Yes 25mg Take [address] [facility] (ATARAX) 25 2-28 by mouth Luke s MG tablet 10:52: every 8 Medic al 33 (eight) Center hours as needed for Itching. losartan-hy 2021-10 Yes 1{tbl} QD Take [address] droCHLOROth 2-28 tablet by Corina fleming iazide 10:52: mouth Medical (HYZAAR) 33 daily. Center 50-12.5 mg per tablet lisinopriL 2021-10- No 20mg Take [address] [facility] (PRINIVIL,Z 12-05 by mouth. Angie kes ESTRIL) 20 09:15: 00:00 Medica l MG tablet 33 :00 Center cholestyram 2021-10- Yes Cholestasis 1{packe Q.[id number] Take [address] [facility] ine 12-04 t} [id number] packet by Corina fleming (QUESTRAN) 00:00: 23:59 3D mouth 3 Med ical 4 gram PwPk 00 :00 (three) Cente r packet times daily Please do not take any food or medication s 2 hours prior to and 2 hours after this medication . ursodioL 2021-10- Yes Cholestasis 300mg Q.5D Take [address] (ACTIGALL) 12-04 capsule [facility] 300 mg 00:00: 23:59 (300 mg Medical capsule 00 :00 total) by Center mouth 2 (two) times daily. INSULIN ASP Yes 30U Inject 30 [facility] PROT & ASP, 8-05 Units into Co llege HUM, 11:36: the skin of (70-30) 100 57 two times Med icin UNIT/ML daily. e SUSP apixaban 2021- No 5mg Q.5D Take [address] (ELIQUIS) 5 4-18 07-25 tablet (5 Angie kes mg Tab 00:00: 23:59 mg total) Medic al tablet 00 :00 by mouth 2 Center (two) times daily for 98 days. acetaminoph 2021- No Generalized 1{tbl} Take [address] [facility] en-codeine 4-18 04-28 abdominal tablet by Josr (TYLENOL 00:00: 23:59 pain mouth Medical #3) 300-30 00 :00 every 6 Center mg per (six) tablet hours as needed for Pain for up to 10 days. Max Daily Amount: 4 tablets furosemide 2021- No Generalized 40mg Take [address] (Lasix) 40 01-28 04-25 abdominal tablet (40 [facility] MG tablet 00:00: 23:59 pain mg total) Me dical 00 :00 by mouth Center daily as needed (as needed for leg swelling) for up to 7 days. clindamycin 2021- No 300mg Q.[id number] Take [address] [facility] (CLEOCIN) 01-23-13 [id number] mg by Angie kes 300 MG 09:00: 00:00 3D mouth 3 Medical capsule 22 :00 (three) Center times daily. fenofibrate 2021- No 145mg QD Take [address] [facility] (TRICOR) 01-23-13 mg by [facility] 145 MG 09:00: 00:00 mouth Medical tablet 22 :00 daily. Center HYDROcodone 2021- No 1{tbl} Take [address] -acetaminop 01-2323 tablet by Angie carmichael hen (NORCO 00:00: 23:59 mouth Medic al 10-325) 00 :00 every 6 Center 10-325 mg (six) per tablet hours as needed for up to 10 days. Max Daily Amount: 4 tablets simethicone 2021- No 80mg Q.25D Take [address] (MYLICON) 01-2323 tablet (80 Corina es 80 MG 00:00: 23:59 mg total) Medica l chewable 00 :00 by mouth 4 Cente r tablet (four) times daily for 10 days. amoxicillin 2021- No 1{tbl} Q.5D Take [address] -clavulanat 01-23-20 tablet by Angie carmichael e 00:00: 23:59 mouth 2 Medical (AUGMENTIN) 00 :00 (two) Center 875-125 mg times per tablet daily for 7 days. furosemide 2021- No 40mg Take [address] [facility] [facility] (Lasix) 40 01-23-18 tablet (40 Angie kes MG tablet 00:00: 00:00 mg total) Me dical 00 :00 by mouth Center daily as needed (as needed for leg swelling) for up to 7 days. apixaban 0 2021- No 10mg Q.5D Take [address] [facility] (ELIQUIS) 5 4-13 04-17 tablets Luke s mg Tab 00:00: 23:59 (10 mg Medical tablet 00 :00 total) by Center mouth 2 (two) times daily for 4 days. HUMALOG 100 Yes INJECT 10 [facility] UNIT/ML 2-16 UNITS College injection 00:00: SUBCUTANEO of 00 USLY THREE Medicin TIMES e DAILY fenofibrate Yes 145mg Take 145 [facility] (TRICOR) 2-15 mg by [place] 145 MG 00:00: mouth of tablet 00 daily. Medicin e INSULIN ASP Yes 30U Inject 30 [facility] PROT & ASP, 2-09 Units into Co llege HUM, 11:25: the skin of (70-30) 100 20 two times Med icin UNIT/ML daily. e SUSP INSULIN ASP Yes 30U Inject 30 [facility] PROT & ASP, 1-12 Units into Co llege HUM, 15:21: the skin of (70-30) 100 56 two times Med icin UNIT/ML daily. e SUSP metformin Yes 1000mg Take 1,000 [facility] (GLUCOPHAGE 1-08 mg by [place] -XR) 500 MG 00:00: mouth two o f XR tablet 00 times Medicin daily. e metformin 2021-0 Yes 1000mg Take 1,000 [facility] MG 00:00: mouth two o f XR tablet 00 times Medicin daily. e metformin 2021-0 Yes 1000mg Take 1,000 [facility] (GLUCOPHAGE 1-08 [facility] MG 00:00: mouth two o f XR tablet 00 times Medicin daily. e FARXIGA 10 2020-10 Yes 10mg Take 10 mg [facility] MG TABS 2-29 by mouth [place] 00:00: daily. of Medicin e FARXIGA 10 2020-10 Yes 10mg Take 10 mg [facility] MG TABS 2-29 by mouth [place] 00:00: daily. of Medicin e FARXIGA 2020-10 Yes 10mg Take 10 mg [facility] MG TABS 2-29 by mouth College 00:00: daily. of 00 Medicin e lisinopril- 2020-10 Yes 1{tbl} Take 1 [facility] hydrochloro 1-26 Tablet by Col lege thiazide 00:00: mouth of (PRINZIDE, daily. Medicin ZESTORETIC) e 20-25 MG per tablet lisinopril- 2020-10 Yes 1{tbl} Take 1 [facility] hydrochloro 1-26 Tablet by Col lege thiazide 00:00: mouth of (PRINZIDE, daily. Medicin ZESTORETIC) e 20-25 MG per tablet lisinopril- 2020-10 Yes 1{tbl} Take 1 [facility] hydrochloro 1-26 Tablet by Col lege thiazide 00:00: mouth of (PRINZIDE, daily. Medicin ZESTORETIC) e 20-25 MG per tablet Farxiga 10 2020-0 Yes 10mg QD Take [address] mg tablet - by mouth [facility] 00:00: daily. [place] [address] Center clonazePAM 2020-0 Yes .5mg Take 0.[address] [facility] [facility] (KlonoPIN) 4-21 mg by [facility] 0.5 MG 00:00: mouth 2 Medical tablet 00 (two) Center times daily as needed for anxiety. gabapentin 2020-0 Yes 300mg Q.5D Take [address] (NEURONTIN) 4-21 mg by [facility] 300 MG 00:00: mouth 2 Medical capsule 00 (two) Center times daily. clonazepam 2020-0 Yes .5mg Take 0.5 [facility] (KLONOPIN) 4-21 mg by [place] 0.5 MG 00:00: mouth as of tablet 00 needed. Medicin e gabapentin 2020-0 Yes 300mg Take 300 [facility] (NEURONTIN) 4-21 mg by [facility] 300 MG 00:00: mouth two of capsule 00 times Medicin daily. e clonazepam 2020-0 Yes .5mg Take 0.5 [facility] (KLONOPIN) 4-21 mg by College 0.5 MG 00:00: mouth as of tablet 00 needed. Medicin e gabapentin 2020-0 Yes 300mg Take 300 [facility] (NEURONTIN) 4-21 mg by College 300 MG 00:00: mouth two of capsule 00 times Medicin daily. e clonazepam 2020-0 Yes .5mg Take 0.5 [facility] (KLONOPIN) 4-21 mg by [place] 0.5 MG 00:00: mouth as of tablet 00 needed. Medicin e gabapentin 2020-0 Yes 300mg Take 300 [facility] (NEURONTIN) 4-21 mg by College 300 MG 00:00: mouth two of capsule 00 times Medicin daily. e metoprolol 2020-0 Yes 100mg QD Take [address] succinate 4-16 mg by [facility] (TOPROL-XL) 00:00: mouth Medic al 100 MG 24 00 daily. Center hr tablet metoprolol 2020-0 Yes 100mg Take 100 [facility] (TOPROL-XL) 4-16 mg by [place] 100 MG XL 00:00: mouth of tablet 00 daily. Medicin e metoprolol 2020-0 Yes 100mg Take 100 [facility] (TOPROL-XL) 4-16 mg by [place] 100 MG XL 00:00: mouth of tablet 00 daily. Medicin e metoprolol 2020-0 Yes 100mg Take 100 [facility] (TOPROL-XL) 4-16 mg by [place] 100 MG XL 00:00: mouth of tablet 00 daily. Medicin e metFORMIN 2020-0 2- No 1000mg Q.5D Take 1,[address] (GLUCOPHAGE 4-16 04-13 mg by [facility] -XR) 500 MG 00:00: 00:00 mouth 2 Me dical 24 hr 00 :00 (two) Center tablet times daily. metoprolol 2020-0 Yes 100mg Q.5D Take 100 Me thodi tartrate 1-[address] (LOPRESSOR) 01:42: mouth 2 Hos pily 100 mg 17 (two) l tablet times a day. gabapentin 2020-0 Yes 100mg Q.[id number] Take 100 [facility] (NEURONTIN) 1-19 [id number] mg by s t 100 mg 01:42: 3D mouth 3 Hospita capsule 17 (three) l times a day. metFORMIN 2020-0 Yes 1000mg Q.5D Take 1,000 [facility] (GLUCOPHAGE 1-[address] ) 1,000 mg 01:42: mouth 2 Hosp connie tablet 17 (two) l times a day with meals. lisinopril 2020-0 Yes 20mg QD Take 20 mg M ethodi (PRINIVIL) 1-[address] 20 mg 01:42: daily. Hospita tablet 17 l leuprolide 2020-0 Yes 3.75mg Q28D Inject [facility]co[facility] (LUPRON) 1-[address] 3.75 mg 01:42: into the Hospit a injection 17 shoulder, l thigh, or buttocks every 28 days. clonazepam clonazepam No clonazepam [place] 0.5 mg 0.5 mg 0.5 mg da tablet TAKE tablet TAKE tablet Medical 1 TABLET BY 1 TABLET BY TAKE 1 Group MOUTH TWICE MOUTH TWICE TABLET BY DAILY DAILY MOUTH NEEDED FOR NEEDED FOR TWICE ANXIETY ANXIETY DAILY NEEDED FOR ANXIETY escitalopra escitalopra No escitalopr [place] m 5 mg m 5 mg am 5 mg da tablet TAKE tablet TAKE tablet Medical 1 TABLET BY 1 TABLET BY TAKE 1 Group MOUTH ONCE MOUTH ONCE TABLET BY DAILY DAILY MOUTH ONCE DAILY Farxiga 10 Farxiga 10 No Farxiga 10 [facility] mg tablet mg tablet mg tablet da TAKE 1 TAKE 1 TAKE 1 Medical TABLET BY TABLET BY TABLET BY Group MOUTH ONCE MOUTH ONCE MOUTH ONCE DAILY DAILY DAILY gabapentin gabapentin No gabapentin [facility] 300 mg 300 mg 300 mg da capsule capsule capsule Medica l TAKE 1 TAKE 1 TAKE 1 Group CAPSULE BY CAPSULE BY CAPSULE BY MOUTH TWICE MOUTH TWICE MOUTH DAILY DAILY TWICE DAILY hydroxyzine hydroxyzine No hydroxyzin [facility] HCl 25 mg HCl 25 mg e HCl 25 d a tablet TAKE tablet TAKE mg tablet Medical 1 TABLET BY 1 TABLET BY TAKE 1 Group MOUTH EVERY MOUTH EVERY TABLET BY 8 HOURS 8 HOURS MOUTH NEEDED FOR NEEDED FOR EVERY 8 ANXIETY ANXIETY HOURS NEEDED FOR ANXIETY ibuprofen ibuprofen No ibuprofen [facility] 800 mg 800 mg 800 mg da tablet TAKE tablet TAKE tablet Medical 1 TABLET BY 1 TABLET BY TAKE 1 Group MOUTH EVERY MOUTH EVERY TABLET BY 8 HOURS 8 HOURS MOUTH NEEDED FOR NEEDED FOR EVERY 8 PAIN (TAKE PAIN (TAKE HOURS WITH FOOD WITH FOOD NEEDED FOR AND WATER) AND WATER) PAIN (TAKE WITH FOOD AND WATER) insulin insulin No insulin [facility] r aspar aspar aspar da prt-insulin prt-insulin prt-insuli Medical aspart 100 aspart 100 n aspart Group unit/mL unit/mL 100 (70-30) (70-30) unit/mL subcutaneou subcutaneou (70-30) s soln s soln subcutaneo INJECT 30 INJECT 30 us soln UNITS UNITS INJECT 30 SUBCUTANEOU SUBCUTANEOU UNITS SLY TWICE SLY TWICE SUBCUTANEO DAILY DAILY USLY TWICE DAILY lisinopril lisinopril No lisinopril [facility] 20 20 20 da mg-hydrochl mg-hydrochl mg-hydroch Medical orothiazide orothiazide lorothiazi Group 25 mg 25 mg de 25 mg tablet TAKE tablet TAKE tablet 1 TABLET BY 1 TABLET BY TAKE 1 MOUTH ONCE MOUTH ONCE TABLET BY DAILY DAILY MOUTH ONCE DAILY metformin metformin No metformin [facility] ER 500 mg ER 500 mg ER 500 mg da tablet,exte tablet,exte tablet,ext Medical nded nded ended Group release 24 release 24 release 24 hr TAKE 2 hr TAKE 2 hr TAKE 2 TABLETS BY TABLETS BY TABLETS BY MOUTH TWICE MOUTH TWICE MOUTH DAILY DAILY TWICE DAILY metoprolol metoprolol No metoprolol [facility] succinate succinate succinate da ER 100 mg ER 100 mg ER 100 mg Medical tablet,exte tablet,exte tablet,ext Group nded nded ended release 24 release 24 release 24 hr TAKE 1 hr TAKE 1 hr TAKE 1 TABLET BY TABLET BY TABLET BY MOUTH ONCE MOUTH ONCE MOUTH ONCE DAILY DAILY DAILY naproxen naproxen No naproxen [facility] 500 mg 500 mg 500 mg da tablet tablet tablet Medical Group Novolin Novolin No Novolin [facility] 70/30 U-100 70/30 U-100 70/30 da Insulin 100 Insulin 100 U-100 Medical unit/mL unit/mL Insulin Group subcutaneou subcutaneou 100 s s unit/mL suspension suspension subcutaneo INJECT 20 INJECT 20 us UNITS UNITS suspension SUBCUTANEOU SUBCUTANEOU INJECT 20 SLY IN THE SLY IN THE UNITS MORNING AND MORNING AND SUBCUTANEO 10 IN THE 10 IN THE USLY IN EVENING EVENING THE MORNING AND 10 IN THE EVENING Immunizations Ordered Immunization Filled Immunization Date Status Commen ts Source Name Name Pfizer SARS-CoV-2 2021-06-11 Completed [facility] Vaccination 00:00:00 of Medicine Pfizer SARS-CoV-2 2021-05-21 Completed [facility] Vaccination 00:00:00 of Medicine Vital Signs Vital Name Observation Time Observation Value Comments Source HEIGHT 2021-05-01 10:50:00 166.4 cm WEIGHT 2021-05-01 10:50:00 90.719 kg Height 2022-10-19 21:20:00 167.64 CM Weight 2022-10-19 21:20:00 86.18 KG Height 2022-09-18 00:34:00 167.64 CM Weight 2022-09-18 00:34:00 86.63 KG Systolic blood 2022-05-17 16:31:00 113 mm[Hg] [facility] pressure Medicine Diastolic blood 2022-05-17 16:31:00 76 mm[Hg] [facility] pressure Medicine Heart rate 2022-05-17 16:31:00 88 /min [facility] Body height 2022-05-17 16:31:00 165.1 cm [facility] Body weight 2022-05-17 16:31:00 91.173 kg [facility] BMI 2022-05-17 16:31:00 33.45 kg/m2 [facility] HEIGHT 2022-02-07 11:11:00 165.1 cm WEIGHT 2022-02-07 11:11:00 93.532 kg HEIGHT 2022-02-07 11:11:00 165.1 cm WEIGHT 2022-02-07 11:11:00 93.532 kg HEIGHT 2022-02-07 11:11:00 165.1 cm WEIGHT 2022-02-07 11:11:00 93.532 kg HEIGHT 2022-01-28 09:50:00 165.1 cm WEIGHT 2022-01-28 09:50:00 99.973 kg HEIGHT 2022-01-28 09:50:00 165.1 cm WEIGHT 2022-01-28 09:50:00 99.973 kg HEIGHT 2022-01-28 09:50:00 165.1 cm WEIGHT 2022-01-28 09:50:00 99.973 kg HEIGHT 2022-01-08 06:15:00 165.1 cm HEIGHT 2022-01-07 11:10:00 165.1 cm WEIGHT 2022-01-07 11:10:00 95.255 kg HEIGHT 2022-01-08 06:15:00 165.1 cm HEIGHT 2022-01-07 11:10:00 165.1 cm WEIGHT 2022-01-07 11:10:00 95.255 kg HEIGHT 2022-01-08 06:15:00 165.1 cm HEIGHT 2022-01-07 11:10:00 165.1 cm WEIGHT 2022-01-07 11:10:00 95.255 kg HEIGHT 2021-12-14 07:45:00 165.1 cm WEIGHT 2021-12-14 07:45:00 95.7 kg HEIGHT 2021-12-14 07:45:00 165.1 cm WEIGHT 2021-12-14 07:45:00 95.7 kg HEIGHT 2021-12-14 07:45:00 165.1 cm WEIGHT 2021-12-14 07:45:00 95.7 kg HEIGHT 2021-12-10 10:05:00 152.4 cm WEIGHT 2021-12-10 10:05:00 96.798 kg HEIGHT 2021-12-10 10:05:00 152.4 cm WEIGHT 2021-12-10 10:05:00 96.798 kg Systolic blood 2021-11-21 17:24:00 120 mm[Hg] [facility] pressure Medicine Diastolic blood 2021-11-21 17:24:00 80 mm[Hg] [facility] pressure Medicine Heart rate 2021-11-21 17:24:00 103 /min [facility] Respiratory rate 2021-11-21 17:24:00 16 /min [facility] Body height 2021-11-21 17:24:00 165.1 cm [facility] Body weight 2021-11-21 17:24:00 97.07 kg [facility] BMI 2021-11-21 17:24:00 35.61 kg/m2 [facility] Oxygen saturation in 2021-11-21 17:24:00 99 /min [facility] Arterial blood by Medicine Pulse oximetry HEIGHT 2021-11-15 10:28:00 152.4 cm WEIGHT 2021-11-15 10:28:00 94.167 kg HEIGHT 2021-11-15 10:28:00 152.4 cm WEIGHT 2021-11-15 10:28:00 94.167 kg HEIGHT 2021-11-15 10:28:00 152.4 cm WEIGHT 2021-11-15 10:28:00 94.167 kg Systolic blood 2021-10-24 21:09:00 130 mm[Hg] [facility] pressure Medicine Diastolic blood 2021-10-24 21:09:00 86 mm[Hg] [facility] Medicine Heart rate 2021-10-24 21:09:00 102 /min [facility] Body temperature 2021-10-24 21:09:00 37.11 Sheri [facility] Body height 2021-10-24 21:09:00 166.4 cm [facility] Body weight 2021-10-24 21:09:00 96.888 kg [facility] BMI 2021-10-24 21:09:00 35.00 kg/m2 [facility] HEIGHT 2021-09-20 09:27:49 152.4 cm WEIGHT 2021-09-20 09:27:49 94.9 kg HEIGHT 2021-09-19 14:54:00 165.1 cm WEIGHT 2021-09-19 14:54:00 92.987 kg HEIGHT 2021-09-20 09:27:49 152.4 cm WEIGHT 2021-09-20 09:27:49 94.9 kg HEIGHT 2021-09-19 14:54:00 165.1 cm WEIGHT 2021-09-19 14:54:00 92.987 kg HEIGHT 2021-05-01 10:50:00 166.4 cm WEIGHT 2021-05-01 10:50:00 90.719 kg BP Diastolic 2021-04-30 00:00:00 78 mm[Hg] [facility] Height 2021-04-30 00:00:00 66 [in_i] [facility] BMI (Body Mass 2021-04-30 00:00:00 32.7 kg/m2 [facility] BP Systolic 2021-04-30 00:00:00 112 mm[Hg] [facility] Body Weight 2021-04-30 00:00:00 202.5 [lb_av] [facility] BP Diastolic 2021-04-24 00:00:00 89 mm[Hg] [facility] Height 2021-04-24 00:00:00 66 [in_i] [facility] BMI (Body Mass 2021-04-24 00:00:00 33.4 kg/m2 [facility] BP Systolic 2021-04-24 00:00:00 137 mm[Hg] [facility] Body Weight 2021-04-24 00:00:00 207.2 [lb_av] [facility] HEIGHT 2021-02-26 08:23:00 166.5 cm WEIGHT 2021-02-26 08:23:00 91.354 kg HEIGHT 2021-02-26 08:23:00 166.5 cm WEIGHT 2021-02-26 08:23:00 91.354 kg Height 2019-10-28 12:01:00 165.1 CM Weight 2019-10-28 12:01:00 99.79 KG Systolic blood 2022-10-09 10:48:00 140 mm[Hg] [facility] Diastolic blood 2022-10-09 10:48:00 81 mm[Hg] [facility] Heart rate 2022-10-09 10:48:00 91 /min [facility] Body temperature 2022-10-09 10:48:00 37.28 Sheri [facility] Respiratory rate 2022-10-09 10:48:00 20 /min [facility] Body height 2022-10-09 10:48:00 165.1 cm [facility] Body weight 2022-10-09 10:48:00 86.183 kg [facility] BMI 2022-10-09 10:48:00 31.62 kg/m2 [facility] Oxygen saturation in 2022-10-09 10:48:00 100 /min [facility] Arterial blood by Medical Ce nter Pulse oximetry Procedures Procedure Date / Time Performing Clinician Source Performed COMPREHENSIVE METABOLIC 2022-10-03 15:10:[address] [facility] BILIRUBIN, DIRECT 2022-10-03 15:10:00 Arielle Singleton [facility] CBC W/PLT COUNT & AUTO 2022-10-03 15:10:00 Arielle Singleton [facility] PROTHROMBIN TIME/INR 2022-10-03 15:10:00 Areli [facility] HEPATITIS A ANTIBODY, IGG 2022-10-03 15:10:00 Arielle Singleton [facility] HEPATITIS B SURFACE ANTIGEN 2022-10-03 15:10:00 Areli [facility] HEPATITIS B SURFACE 2022-10-03 15:10:00 Arielle Singleton [facility] ANTIBODY [facility] HEPATITIS B CORE ANTIBODY, 2022-10-03 15:10:00 Arielle Singleton [facility] TOTAL [facility] HEPATITIS C ANTIBODY 2022-10-03 15:10:00 Areli [facility] IRON, TIBC, % SAT. (WITHOUT 2022-10-03 15:10:00 Areli [facility] FERRITIN) [facility] FERRITIN 2022-10-03 15:10:00 Areli [facility] [id number]\\, SERUM 2022-10-03 15:10:00 Areli [facility] CERULOPLASMIN 2022-10-03 15:10:00 Areli [facility] ANTI-NUCLEAR ANTIBODY (LILIANA) 2022-10-03 15:10:00 Areli [facility] ACTIN (SMOOTH MUSCLE) 2022-10-03 15:10:00 Areli [facility] ANTIBODY, IGG [facility] MITOCHONDRIA M2 ANTIBODY 2022-10-03 15:10:00 Areli [facility] (IGG) [facility] ALPHA FETOPROTEIN (AFP), 2022-10-03 15:10:00 Areli [facility] TUMOR MARKER [facility] CBC W/PLT COUNT & AUTO 2022-10-03 15:10:00 Areli [facility] NM BONE SCAN WHOLE BODY 2022-08-30 14:53:00 Nichole Ulloa [facility] CT CHEST WITH IV CONTRAST 2022-08-30 13:20:00 Artemio [facility] MR ABDOMEN WITH & WITHOUT 2022-08-30 12:05:00 [facility] IV CONTRAST [facility] CT CHEST WITH IV CONTRAST 2022-05-23 14:40:00 [facility]IC 2022-05-17 17:23:00 Nichole Ulloa [facility] Medicine CBC W/AUTO DIFF WITH 2022-05-17 17:23:00 Nichole Ulloa [facility] PLATELETS Medicine AFP TUMOR MARKER 2022-05-17 17:23:00 Nichole Ulloa [facility] CBC W/AUTO DIFF WITH 2022-05-17 12:23:00 [facility] COMPREHENSIVE METABOLIC 2022-05-17 12:23:00 [facility] AFP TUMOR MARKER 2022-05-17 12:23:00 [facility] MR ABDOMEN WITH & WITHOUT 2022-05-02 16:11:00 Prema Guerra [facility] IV CONTRAST [facility] CT ABDOMEN/PELVIS WITH IV 2022-02-08 01:24:00 Vic, Beatris CH I [facility] URINALYSIS W/ REFLEX URINE 2022-02-08 01:23:00 Vic, Beatris Francois [facility] CULTURE [facility] SCREEN, URINE 2022-02-08 01:23:00 Vic, [facility] BLOOD CULTURE 2022-02-07 23:02:00 Vic, [facility] SARS-COV2/INFLUENZA/RSV 2022-02-07 22:44:00 Vic, [facility] RT-PCR [facility] BLOOD CULTURE 2022-02-07 21:51:00 Vic, [facility] CBC W/PLT COUNT & AUTO 2022-02-07 21:51:00 Vic, [facility] DIFFERENTIAL [facility] LACTIC ACID, VENOUS 2022-02-07 21:51:00 Vic, [facility] COMPREHENSIVE METABOLIC 2022-02-07 21:51:00 Vic, [facility] PANEL [facility] PROTHROMBIN TIME/INR 2022-02-07 21:51:00 Vic, [facility] APTT 2022-02-07 21:51:00 [facility], [facility] CBC W/PLT COUNT & AUTO 2022-02-07 [facility] 2022-02-07 12:08:00 Lorton [facility] BASIC METABOLIC PANEL 2022-02-07 12:07:00 Lorton [facility] CBC W/PLT COUNT & AUTO 2022-02-07 12:07:00 Lorton [facility] HEPATIC FUNCTION PANEL 2022-02-07 12:07:00 [facility] GAMMA GLUTAMYL TRANSFERASE 2022-02-07 12:07:00 Denzel Trinidad [facility] (GGT) [facility] MAGNESIUM 2022-02-07 12:07:00 Vivi [facility] PHOSPHORUS 2022-02-07 12:07:00 Vivi [facility] CBC W/PLT COUNT & AUTO 2022-02-07 12:07:00 Lorton [facility] URINALYSIS W/ REFLEX URINE 2022-02-07 12:06:00 Denzel Trinidad [facility] CBC W/PLT COUNT & AUTO 2022-02-06 03:19:[address] [facility] COMPREHENSIVE METABOLIC 2022-02-06 03:19:[facility]UM, QUALITATIVE 2022-02-06 03:19:00 [facility] URINALYSIS W/ MICROSCOPIC 2022-02-06 03:19:00 Sanya [facility] CBC W/PLT COUNT & AUTO 2022-02-06 03:19:00 [facility] X[facility] ABDOMEN/KUB 1 VIEW 2022-01-30 10:23:00 Vivi [facility] CBC W/PLT COUNT & AUTO 2022-01-28 10:35:00 Vivi [facility] BASIC METABOLIC PANEL 2022-01-28 10:35:00 Vivi [facility] HEPATIC FUNCTION PANEL 2022-01-28 10:35:00 Vivi [facility] [place] GAMMA GLUTAMYL TRANSFERASE 2022-01-28 10:35:00 Denzel Trinidad [facility] (GGT) [facility] MAGNESIUM 2022-01-28 10:35:00 Vivi [facility] PHOSPHORUS 2022-01-28 10:35:00 Vivi [facility] PROTHROMBIN TIME/INR 2022-01-28 10:35:00 Lorton [facility] CBC W/PLT COUNT & AUTO 2022-01-28 10:35:00 Vivi [facility] POCT-GLUCOSE METER 2022-01-23 11:04:00 Vivi [facility] POCT-GLUCOSE METER 2022-01-23 07:45:00 Vivi [facility] VANCOMYCIN LEVEL, TROUGH 2022-01-23 01:51:00 Conner Bronw [facility] PROTHROMBIN TIME/INR 2022-01-23 01:51:00 [facility] CBC (HEMOGRAM ONLY) 2022-01-23 01:51:00 [facility] BASIC METABOLIC PANEL 2022-01-23 01:51:00 [facility] [place] [facility] 2022-01-23 01:51:00 [facility] MAGNESIUM 2022-01-23 01:51:00 [facility] PHOSPHORUS 2022-01-23 01:51:00 Junito Barrow [facility] VENOUS DOPPLER LEGS 2022-01-23 01:19:00 Giorgio [facility] POCT-GLUCOSE METER 2022-01-22 21:00:00 Vivi [facility] POCT-GLUCOSE METER 2022-01-22 15:18:00 Vivi [facility] POCT-GLUCOSE METER 2022-01-22 11:20:[address] [facility] [address] BRAIN WITHOUT IV 2022-01-22 08:33:00 Jagruti Hurley [facility] POCT-GLUCOSE METER 2022-01-22 07:10:00 Vivi [facility] PROTHROMBIN TIME/INR 2022-01-22 05:06:00 Vivi [facility] CBC (HEMOGRAM ONLY) 2022-01-22 05:06:00 Lorton [facility] BASIC METABOLIC PANEL 2022-01-22 05:06:00 Vivi [facility] HEPATIC FUNCTION PANEL 2022-01-22 05:06:00 Vivi [facility] [place] MAGNESIUM 2022-01-22 05:06:00 Vivi [facility] PHOSPHORUS 2022-01-22 05:06:00 Junito Barrow [facility] POCT-GLUCOSE METER 2022-01-21 20:50:00 Vivi [facility] POCT-GLUCOSE METER 2022-01-21 15:41:00 Vivi [facility] POCT-GLUCOSE METER 2022-01-21 12:34:00 Vivi [facility] HC VENOUS DOPPLER EXT UNI 2022-01-21 11:38:00 Jagruti Hurley I [facility] VANCOMYCIN LEVEL, TROUGH 2022-01-21 10:09:00 Tanja Billy [facility] POCT-GLUCOSE METER 2022-01-21 08:14:00 Vivi [facility] PROTHROMBIN TIME/INR 2022-01-21 04:22:00 Vivi [facility] CBC (HEMOGRAM ONLY) 2022-01-21 04:22:00 Vivi [facility] BASIC METABOLIC PANEL 2022-01-21 04:22:00 Vivi [facility] HEPATIC FUNCTION PANEL 2022-01-21 04:22:00 Vivi [facility] [place] MAGNESIUM 2022-01-21 04:22:00 Vivi [facility] PHOSPHORUS 2022-01-21 04:22:00 Junito Barrow [facility] CBC W/PLT COUNT & AUTO 2022-01-21 04:22:00 Billy [facility] CBC W/PLT COUNT & AUTO 2022-01-21 04:22:00 Billy, [facility] POCT-GLUCOSE METER 2022-01-20 21:43:00 Vivi [facility] POCT-GLUCOSE METER 2022-01-20 15:50:00 Vivi [facility] POCT-GLUCOSE METER 2022-01-20 12:13:00 Vivi [facility] POCT-GLUCOSE METER 2022-01-20 08:06:00 Lorton [facility] CBC (HEMOGRAM ONLY) 2022-01-20 06:12:00 Vivi [facility] BASIC METABOLIC PANEL 2022-01-20 06:12:00 [facility] [place] [facility] 2022-01-20 06:12:00 Vivi [facility] [place] MAGNESIUM 2022-01-20 06:12:00 Vivi [facility] PHOSPHORUS 2022-01-20 06:12[facility] 2022-01-20 06:11:00 Vivi [facility] BLOOD CULTURE 2022-01-19 22:54:00 Paco Paz [facility] POCT-GLUCOSE METER 2022-01-19 21:40:00 Vivi [facility] BLOOD CULTURE 2022-01-19 18:50:00 Raisa Pazchary [facility] POCT-GLUCOSE METER 2022-01-19 16:28:00 Vivi [facility] POCT-GLUCOSE METER 2022-01-19 11:37:00 Vivi [facility] POCT-GLUCOSE METER 2022-01-19 07:29:00 Vivi [facility] PROTHROMBIN TIME/INR 2022-01-19 06:25:00 Vivi [facility] CBC (HEMOGRAM ONLY) 2022-01-19 06:25:00 Vivi [facility] BASIC METABOLIC PANEL 2022-01-19 06:25:00 Lorton [facility] HEPATIC FUNCTION PANEL 2022-01-19 06:25:00 Vivi [facility] [place] MAGNESIUM 2022-01-19 06:25:00 Vivi [facility] PHOSPHORUS 2022-01-19 06:25:00 Junito Barrow [facility] POCT-GLUCOSE METER 2022-01-18 22:07:00 Vivi [facility] POCT-GLUCOSE METER 2022-01-18 15:41:00 Lorton [facility] POCT-GLUCOSE METER 2022-01-18 11:03:00 Vivi [facility] POCT-GLUCOSE METER 2022-01-18 08:37:00 Vivi [facility] PROTHROMBIN TIME/INR 2022-01-18 04:36:00 Lorton [facility] CBC (HEMOGRAM ONLY) 2022-01-18 04:36:00 [facility] BASIC METABOLIC PANEL 2022-01-18 04:36:00 Lorton [facility] HEPATIC FUNCTION PANEL 2022-01-18 04:36:00 Vivi [facility] [place] MAGNESIUM 2022-01-18 04:36:00 Vivi [facility] PHOSPHORUS 2022-01-18 04:36:00 Junito Barrow [facility] POCT-GLUCOSE METER 2022-01-17 20:55:00 Vivi [facility] POCT-GLUCOSE METER 2022-01-17 18:20:00 Denzel Trinidad [facility] US DRAINAGE WITH CATH 2022-01-17 17:47:00 Mei [facility] BODY FLUID CELL COUNT WITH 2022-01-17 17:34:00 Jagruti Hurley [facility] AMYLASE PERITONEAL FLUID 2022-01-17 17:34:00 Mei [facility] TRIGLYCERIDES, PERITONEAL 2022-01-17 17:34:00 Jagruti Hurley [facility] MISCELLANEOUS LAB ORDER 2022-01-17 17:32:00 Mei [facility] BODY FLUID CULTURE + GRAM 2022-01-17 17:31:00 [facility] POCT-GLUCOSE METER 2022-01-17 11:44:00 Vivi [facility] URINE CULTURE 2022-01-17 10:01:00 Mei [facility] URINALYSIS W/ REFLEX URINE 2022-01-17 10:01:00 Jagruti Hurley [facility] CT ABDOMEN/PELVIS WITH IV 2022-01-17 09:32:00 [facility] POCT-GLUCOSE METER 2022-01-17 08:00:00 Vivi [facility] PROTHROMBIN TIME/INR 2022-01-17 03:45:00 Vivi [facility] CBC (HEMOGRAM ONLY) 2022-01-17 03:45:00 Denzel Trinidad [facility] BASIC METABOLIC PANEL 2022-01-17 03:45:00 Vivi [facility] HEPATIC FUNCTION PANEL 2022-01-17 03:45:00 Vivi [facility] [place] MAGNESIUM 2022-01-17 03:45:00 Vivi [facility] PHOSPHORUS 2022-01-17 03:45:00 Danial [facility] SARS-COV2/RT-PCR [facility] 2022-01-16 23:03:00 Vivi [facility] POCT-GLUCOSE METER 2022-01-16 21:53:00 Vivi [facility] POCT-GLUCOSE METER 2022-01-16 15:18:00 Vivi [facility] POCT-GLUCOSE METER 2022-01-16 11:35:00 [facility]/KUB 1 VIEW 2022-01-16 08:46:00 [facility]SE [facility] 2022-01-16 07:37:00 [facility] PROT[facility]/INR 2022-01-16 04:57:00 [facility] CBC (HEMOGRAM ONLY) 2022-01-16 04:57:00 [facility] BASIC METABOLIC PANEL 2022-01-16 04:57:00 [facility] HEPATIC FUNCTION PANEL 2022-01-16 04:57:00 [facility] MAGNESIUM 2022-01-16 04:57:00 Vivi [facility] PHOSPHORUS 2022-01-16 04:57:00 Danial [facility] POCT-GLUCOSE METER 2022-01-15 21:48:00 Vivi [facility] POCT-GLUCOSE METER 2022-01-15 15:53:00 [facility] POCT-GLUCOSE METER 2022-01-15 11:39:00 Vivi [facility] POCT-GLUCOSE METER 2022-01-15 07:59:00 Vivi [facility] PROTHROMBIN TIME/INR 2022-01-15 04:00:00 Lorton [facility] CBC (HEMOGRAM ONLY) 2022-01-15 04:00:00 Vivi [facility] BASIC METABOLIC PANEL 2022-01-15 04:00:00 Vivi [facility] HEPATIC FUNCTION PANEL 2022-01-15 04:00:00 Vivi [facility] [place] MAGNESIUM 2022-01-15 04:00:00 Vivi [facility] PHOSPHORUS 2022-01-15 04:00:00 Junito Barrow [facility] POCT-GLUCOSE METER 2022-01-14 21:26:00 Vivi [facility] POCT-GLUCOSE METER 2022-01-14 16:08:00 Vivi [facility] POCT-GLUCOSE METER 2022-01-14 11:48:00 Vivi [facility] URINALYSIS W/ REFLEX URINE 2022-01-14 10:43:00 Barb Loza [facility] CULTURE [facility] URINE CULTURE 2022-01-14 10:39:00 Shaye Loza [facility] POCT-GLUCOSE METER 2022-01-14 07:57:00 Vivi [facility] XR CHEST 1 VIEW PORTABLE / 2022-01-14 07:22:00 Jagruti Hurley [facility] CBC (HEMOGRAM ONLY) 2022-01-14 06:26:00 Vivi [facility] PROTHROMBIN TIME/INR 2022-01-14 06:25:00 Vivi [facility] BASIC METABOLIC PANEL 2022-01-14 06:25:00 Vivi [facility] HEPATIC FUNCTION PANEL 2022-01-14 06:25:00 Vivi [facility] [place] MAGNESIUM 2022-01-14 06:25:00 Vivi, [facility] PHOSPHORUS 2022-01-14 06:25:00 Amritjanette Junito [facility] POCT-GLUCOSE METER 2022-01-13 20:51:00 Vivi [facility] POCT-GLUCOSE METER 2022-01-13 17:00:00 [facility] PHOSPHORUS 2022-01-13 13:00:00 Vivi [facility] POCT-GLUCOSE METER 2022-01-13 11:12:00 [facility] POCT-GLUCOSE METER 2022-01-13 07:21:00 [facility] PHOSPHORUS 2022-01-13 07:12:00 [facility] PHOSPHORUS 2022-01-13 03:22:00 [facility] PROTHROMBIN TIME/INR 2022-01-13 03:22:00 [facility] CBC (HEMOGRAM ONLY) 2022-01-13 03:22:00 [facility] BASIC METABOLIC PANEL 2022-01-13 03:22:00 [facility] HEPATIC FUNCTION PANEL 2022-01-13 03:22:00 [facility] MAGNESIUM 2022-01-13 03:22:00 [facility] POCT-GLUCOSE METER 2022-01-12 23:48:00 [facility] PHOSPHORUS 2022-01-12 21:33:00 [facility] POCT-GLUCOSE METER 2022-01-12 21:13:00 [facility] POCT-GLUCOSE METER 2022-01-12 17:27:00 [facility] PHOSPHORUS 2022-01-12 12:17:00 [facility] POCT-GLUCOSE METER 2022-01-12 11:34:00 [facility] PORTABLE / 2022-01-12 11:28:00 Tomas Watson [facility] POCT-GLUCOSE METER 2022-01-12 06:00:00 [facility] PHOSPHORUS 2022-01-12 04:44:00 Vivi [facility] PROTHROMBIN TIME/INR 2022-01-12 04:44:00 Vivi [facility] CBC (HEMOGRAM ONLY) 2022-01-12 04:44:00 Vivi [facility] BASIC METABOLIC PANEL 2022-01-12 04:44:00 Vivi [facility] HEPATIC FUNCTION PANEL 2022-01-12 04:44:00 Vivi [facility] [place] MAGNESIUM 2022-01-12 04:44:00 Vivi [facility] POCT-GLUCOSE METER 2022-01-12 04:14:00 [facility] XR CHEST 1 VIEW PORTABLE / 2022-01-11 23:00:00 Lightle [facility] PHOSPHORUS 2022-01-11 22:40:00 Vivi [facility] BASIC METABOLIC PANEL 2022-01-11 22:40:00 Lightle, [facility] MAGNESIUM 2022-01-11 22:40:00 Lightle, [facility] POCT-GLUCOSE METER 2022-01-11 22:40:00 [facility] POCT-GLUCOSE METER 2022-01-11 20:34:00 [facility] POCT-GLUCOSE METER 2022-01-11 16:48:00 [facility] PHOSPHORUS 2022-01-11 14:48:00 Jagruti Hurley [facility] POCT-GLUCOSE METER 2022-01-11 12:14:00 [facility] US ABDOMINAL WITH DOPPLER 2022-01-11 12:11:00 Jadyn Hurleyah SHANTI Linares [facility] POCT-GLUCOSE METER 2022-01-11 09:23:00 [facility] POCT-GLUCOSE METER 2022-01-11 06:14:00 [facility] PHOSPHORUS 2022-01-11 04:55:00 Vivi [facility] APTT 2022-01-11 04:55:00 Darren Davison [facility] PROTHROMBIN TIME/INR 2022-01-11 04:55:00 Vivi [facility] CBC (HEMOGRAM ONLY) 2022-01-11 04:55:00 Vivi [facility] BASIC METABOLIC PANEL 2022-01-11 04:55:00 Vivi [facility] HEPATIC FUNCTION PANEL 2022-01-11 04:55:00 Vivi [facility] [place] MAGNESIUM 2022-01-11 04:55:00 Vivi [facility] CALCIUM, IONIZED 2022-01-11 04:55:00 Darren Davison [facility] POCT-GLUCOSE METER 2022-01-11 04:36:00 [facility] POCT-GLUCOSE METER 2022-01-11 02:12:00 [facility] POCT-GLUCOSE METER 2022-01-11 01:29:00 [facility] XR CHEST 1 VIEW PORTABLE / 2022-01-11 00:54:[address] [facility] POCT-GLUCOSE METER 2022-01-10 23:56:00 Vivi [facility] PHOSPHORUS 2022-01-10 23:34:00 Vivi [facility] POCT-GLUCOSE METER 2022-01-10 22:21:00 [facility] POCT-GLUCOSE METER 2022-01-10 21:00:00 [facility] POCT-GLUCOSE METER 2022-01-10 20:01:00 Lorton [facility] POCT-GLUCOSE METER 2022-01-10 19:27:00 [facility] POCT-GLUCOSE METER 2022-01-10 18:06:00 [facility] POCT-GLUCOSE METER 2022-01-10 17:16:00 [facility] PHOSPHORUS 2022-01-10 16:36:00 [facility] BASIC METABOLIC PANEL 2022-01-10 16:36:00 Avi Wadsworth [facility] POCT-GLUCOSE METER 2022-01-10 16:08:00 [facility] POCT-GLUCOSE METER 2022-01-10 14:29:00 [facility] POCT-GLUCOSE METER 2022-01-10 13:29:00 [facility] POCT-GLUCOSE METER 2022-01-10 12:16:00 [facility] POCT-GLUCOSE METER 2022-01-10 11:18:00 [facility] POCT-GLUCOSE METER 2022-01-10 10:08:00 [facility] POCT-GLUCOSE METER 2022-01-10 08:05:00 [facility] POCT-GLUCOSE METER 2022-01-10 06:19:00 [facility] POCT-GLUCOSE METER 2022-01-10 04:38:00 [facility] SARS-COV2/RT-PCR ([facility] 2022-01-10 02:43:00 Lorton [facility] REF [facility] APTT 2022-01-10 02:43:00 Darren Davison [facility] PROTHROMBIN TIME/INR 2022-01-10 02:43:00 [facility] CBC (HEMOGRAM ONLY) 2022-01-10 02:43:00 Vivi [facility] BASIC METABOLIC PANEL 2022-01-10 02:43:00 Vivi [facility] HEPATIC FUNCTION PANEL 2022-01-10 02:43:00 [facility] MAGNESIUM 2022-01-10 02:43:00 Vivi [facility] PHOSPHORUS 2022-01-10 02:43:00 Darren Davison [facility] CALCIUM, IONIZED 2022-01-10 02:43:00 Darren Davison [facility] POCT-GLUCOSE METER 2022-01-10 02:07:00 [facility] POCT-GLUCOSE METER 2022-01-10 01:07:00 [facility] XR CHEST 1 VIEW PORTABLE / 2022-01-10 01:00:[address] [facility] POCT-GLUCOSE METER 2022-01-10 00:08:00 [facility]i [facility] PREPARE LEUKO-REDUCED RBC 2022-01-09 23:55:00 [facility]ARE RBC 2022-01-09 23:55:00 [facility] PO[facility]SE [facility]ER 2022-01-09 23:08:00 [facility] CBC W/PLT COUNT & AUTO 2022-01-09 22:14:00 Roland Montes [facility] BASIC METABOLIC PANEL 2022-01-09 22:14:00 [facility] MAGNESIUM 2022-01-09 22:14:00 Jyoti [facility] PHOSPHORUS 2022-01-09 22:14:00 Jyoti [facility] HEMOGLOBIN A1C 2022-01-09 22:14:00 Jyoti [facility] CBC W/PLT COUNT & AUTO 2022-01-09 22:14:00 Roland Montes CH I [facility] POCT-GLUCOSE METER 2022-01-09 22:08:00 [facility] XR ABDOMEN/KUB 1 VIEW 2022-01-09 20:49:00 Roland Montes [facility] POCT-GLUCOSE METER 2022-01-09 20:47:00 [facility] POCT-GLUCOSE METER 2022-01-09 19:24:00 [facility] POCT-[facility]UCOSE METER 2022-01-09 17:46:00 [facility] POCT-GLUCOSE METER 2022-01-09 16:52:00 [facility] POCT-GLUCOSE METER 2022-01-09 15:51:00 [facility] PHOS[facility]US 2022-01-09 14:50:00 [facility] [place] PO[facility]SE METER 2022-01-09 14:49:00 [facility] POCT-GLUCOSE METER 2022-01-09 13:44:00 [facility] PROTHROMBIN TIME/INR 2022-01-09 13:26:00 [facility] PHOSPHORUS 2022-01-09 13:26:00 [facility] HEPATIC FUNCTION PANEL 2022-01-09 13:26:00 [facility] CBC W/PLT COUNT & AUTO 2022-01-09 13:26:00 [facility] BASIC METABOLIC PANEL 2022-01-09 13:26:00 [facility] CBC W/PLT COUNT & AUTO 2022-01-09 13:26:00 [facility] (CELLAVISION MANUAL DIFF) 2022-01-09 13:26:00 Jagruti Hurley [facility] POCT-GLUCOSE METER 2022-01-09 12:54:00 [facility] POCT-GLUCOSE METER 2022-01-09 11:54:00 [facility] POCT-GLUCOSE METER 2022-01-09 10:42:00 [facility] POCT-GLUCOSE METER 2022-01-09 09:46:00 [facility] US ABDOMINAL WITH DOPPLER 2022-01-09 09:00:00 Jagruti Hurley [facility] LACTIC ACID, ARTERIAL 2022-01-09 08:08:00 [facility] POCT-GLUCOSE METER 2022-01-09 08:02:00 [facility] POCT-GLUCOSE METER 2022-01-09 06:57:00 [facility] POCT-GLUCOSE METER 2022-01-09 05:55:00 [facility] LACTIC ACID, ARTERIAL 2022-01-09 03:56:00 [facility] POTASSIUM 2022-01-09 03:56:00 [facility] POCT-GLUCOSE METER 2022-01-09 03:56:00 [facility] CBC (HEMOGRAM ONLY) 2022-01-09 02:07:00 Shakira Michelle [facility] APTT 2022-01-09 02:07:00 Darren Davison [facility] PROTHROMBIN TIME/INR 2022-01-09 02:07:00 Vivi [facility] BASIC METABOLIC PANEL 2022-01-09 02:07:00 Vivi [facility] HEPATIC FUNCTION PANEL 2022-01-09 02:07:00 Denzel Trinidad Alphonso [facility] MAGNESIUM 2022-01-09 02:07:00 Denzel Trinidad [facility] PHOSPHORUS 2022-01-09 02:07:00 Darren Davison [facility] BLOOD GAS, ARTERIAL 2022-01-09 02:07:00 [facility] CALCIUM, IONIZED 2022-01-09 02:07:00 Darren Davison [facility] XR CHEST 1 VIEW PORTABLE / 2022-01-09 00:59:[address] [facility] RRL CRITICAL LABS 2022-01-08 21:29:00 [facility] (ABG,NA,K,H&H,GLUCOSE) [facility] enter MAGNESIUM 2022-01-08 21:29:00 [facility] BLOOD GAS, ARTERIAL 2022-01-08 21:29:[address] [facility] SODIUM NA-STAT LAB 2022-01-08 21:29:00 Formerly named [facility] POTASSIUM-STAT LAB 2022-01-08 21:29:00 Formerly named [facility] GLUCOSE-STAT LAB 2022-01-08 21:29:00 [facility] HGB/HCT (H&H) - STAT LAB 2022-01-08 21:29:00 [facility] PHOSPHORUS 2022-01-08 21:17:00 Noel Merritt [facility] CBC (HEMOGRAM ONLY) 2022-01-08 21:02:00 Miguel Angel Shakira [facility] POCT-GLUCOSE METER 2022-01-08 21:01:00 [facility] (HEMO[facility] ONLY) 2022-01-08 17:43:00 Shakira Michelle [facility] FIBRINOGEN 2022-01-08 17:43:00 Darren Davison [facility] LACTIC ACID, ARTERIAL 2022-01-08 17:43:00 Darren Davison [facility] PROTHROMBIN TIME/INR 2022-01-08 17:43:00 Darren Davison CH I [facility] APTT 2022-01-08 17:43:00 Darren Davison [facility] POCT-GLUCOSE METER 2022-01-08 16:43:00 Denzel Trinidad [facility] ECG 12-LEAD 2022-01-08 15:43:16 Unknown, [facility] ECG 12-LEAD 2022-01-08 15:43:16 Unknown, [facility] XR CHEST 1 VIEW PORTABLE / 2022-01-08 14:10:00 Jagruti Hurley [facility] LACTIC ACID, ARTERIAL 2022-01-08 14:01:00 Shakira Michelle [facility] CBC W/PLT COUNT & AUTO 2022-01-08 14:01:00 Shakira Michelle [facility] DIFFERENTIAL [facility] OXYGEN SATURATION, MEASURED 2022-01-08 14:01:00 Miguel Angel Shakira [facility] RRL CRITICAL LABS 2022-01-08 14:01:00 Shakira Michelle [facility] (ABG,NA,K,H&H,GLUCOSE) [facility] enter CALCIUM, IONIZED 2022-01-08 14:01:00 Shakira Michelle [facility] BLOOD GAS, ARTERIAL 2022-01-08 14:01:00 Shakira Michelle [facility] SODIUM NA-STAT LAB 2022-01-08 14:01:00 Miguel Angel [facility] POTASSIUM-STAT LAB 2022-01-08 14:01:00 Miguel Angel [facility] GLUCOSE-STAT LAB 2022-01-08 14:01:00 Miguel Angel Shakira [facility] HGB/HCT (H&H) - STAT LAB 2022-01-08 14:01:00 Shakira Michelle CH I [facility] CBC (HEMOGRAM ONLY) 2022-01-08 14:01:00 Jagruti Hurley [facility] CBC W/PLT COUNT & AUTO 2022-01-08 14:01:00 Shakira Michelle [facility] DIFFERENTIAL [facility] (CELLAVISION MANUAL DIFF) 2022-01-08 14:01:00 Shakira Michelle [facility] MAGNESIUM 2022-01-08 14:00:00 Shakira Michelle [facility] BASIC METABOLIC PANEL 2022-01-08 14:00:00 Shakira Michelle [facility] PROTHROMBIN TIME/INR 2022-01-08 14:00:00 Shakira Michelle [facility] APTT 2022-01-08 14:00:00 Shakira Michelle [facility] FIBRINOGEN 2022-01-08 14:00:00 Shakira Michelle [facility] HEPATIC FUNCTION PANEL 2022-01-08 14:00:00 Shakira Michelle [facility] PHOSPHORUS 2022-01-08 14:00:00 Darren Davison [facility] CALCIUM, IONIZED 2022-01-08 12:12:44 James Haylee [facility] RRL CRITICAL LABS 2022-01-08 12:12:44 James [facility] (ABG,NA,K,H&H,GLUCOSE) [facility] enter BLOOD GAS, ARTERIAL 2022-01-08 12:12:44 James [facility] SODIUM NA-STAT LAB 2022-01-08 12:12:44 James [facility] POTASSIUM-STAT LAB 2022-01-08 12:12:[facility] 2022-01-08 [facility]:12[facility] 2022-01-08 12:12:44 [facility] 2022-01-08 11:35:12 Kalie [facility] (ABG,NA,K,H&H,GLUCOSE) Medical C enter CALCIUM, IONIZED 2022-01-08 11:35:12 Kalie [facility] BLOOD GAS, ARTERIAL 2022-01-08 11:35:12 Kalie [facility] SODIUM NA-STAT LAB 2022-01-08 11:35:[address] [facility] POTASSIUM-STAT LAB 2022-01-08 11:35:[address] [facility] GLUCOSE-STAT LAB 2022-01-08 11:35:12 Kalie [facility] HGB/HCT (H&H) - STAT LAB 2022-01-08 11:35:12 Kalie [facility] TRANSFUSE LEUKO-REDUCED RED 2022-01-08 11:01:00 Kalie [facility] TISSUE EXAM 2022-01-08 11:00:00 Denzel Trinidad [facility] TRANSFUSE LEUKO-REDUCED RED 2022-01-08 10:55:00 Kalie [facility] RRL CRITICAL LABS 2022-01-08 10:52:35 Kalie [facility] (ABG,NA,K,H&H,GLUCOSE) Medical C enter CALCIUM, IONIZED 2022-01-08 10:52:35 [facility] [place] BLOOD GAS, ARTERIAL 2022-01-08 10:52:35 Kalie [facility] SODIUM NA-STAT LAB 2022-01-08 10:52:[address] [facility] POTASSIUM-STAT LAB 2022-01-08 10:52:[address] [facility] GLUCOSE-STAT LAB 2022-01-08 10:52:35 Kalie [facility] HGB/HCT (H&H) - STAT LAB 2022-01-08 10:52:35 Kalie [facility] RRL CRITICAL LABS 2022-01-08 10:15:32 Kalie [facility] (ABG,NA,K,H&H,GLUCOSE) Medical C enter CALCIUM, IONIZED 2022-01-08 10:15:32 Kalie [facility] BLOOD GAS, ARTERIAL 2022-01-08 10:15:32 Kalie [facility] SODIUM NA-STAT LAB 2022-01-08 10:15:[address] [facility] POTASSIUM-STAT LAB 2022-01-08 10:15:[address] [facility] GLUCOSE-STAT LAB 2022-01-08 10:15:32 Kalie [facility] HGB/HCT (H&H) - STAT LAB 2022-01-08 10:15:32 Kalie [facility] TRANSFUSE LEUKO-REDUCED RED 2022-01-08 09:51:00 Kalie [facility] TRANSFUSE LEUKO-REDUCED RED 2022-01-08 09:44:00 Kalie [facility] RRL CRITICAL LABS 2022-01-08 09:31:33 Kalie [facility] (ABG,NA,K,H&H,GLUCOSE) Medical C enter CALCIUM, IONIZED 2022-01-08 09:31:33 Kalie [facility] BLOOD GAS, ARTERIAL 2022-01-08 09:31:33 Kalie [facility] SODIUM NA-STAT LAB 2022-01-08 09:31:[address] [facility] POTASSIUM-STAT LAB 2022-01-08 09:31:[address] [facility] GLUCOSE-STAT LAB 2022-01-08 09:31:33 Kalie [facility] HGB/HCT (H&H) - STAT LAB 2022-01-08 09:31:33 Kalie [facility] RRL CRITICAL LABS 2022-01-08 08:24:45 Kalie [facility] (ABG,NA,K,H&H,GLUCOSE) Medical C enter CALCIUM, IONIZED 2022-01-08 08:24:45 Kalie [facility] BLOOD GAS, ARTERIAL 2022-01-08 08:24:45 Kalie [facility] SODIUM NA-STAT LAB 2022-01-08 08:24:[address] [facility] POTASSIUM-STAT LAB 2022-01-08 08:24:[address] [facility] GLUCOSE-STAT LAB 2022-01-08 08:24:45 Kalie [facility] HGB/HCT (H&H) - STAT LAB 2022-01-08 08:24:45 Kalie [facility] TYPE AND SCREEN, AUTOMATED 2022-01-08 08:22:00 Denzel Trinidad [facility] LAPAROTOMY, EXPLORATORY 2022-01-08 07:12:00 Vivi [facility] HEPATECTOMY, PARTIAL 2022-01-08 07:12:00 Vivi [facility] HERNIORRHAPHY, UMBILICAL 2022-01-08 07:12:00 Lorton [facility] POCT-GLUCOSE METER 2022-01-08 06:13:00 [facility] PELVIS WITH IV CONTRAST 2022-01-03 13:31:00 Nichole Ulloa [facility] SARS-COV2/RT-PCR ([facility] & 2022-01-03 11:59:00 Denzel Trinidad [facility] REF LABS) [facility] CBC W/PLT COUNT & AUTO 2021-12-31 10:37:00 Prema Guerra [facility] BASIC METABOLIC PANEL 2021-12-31 10:37:00 Prema Guerra [facility] HEPATIC FUNCTION PANEL 2021-12-31 10:37:00 Prema Guerra [facility] PREALBUMIN 2021-12-31 10:37:00 Prema Guerra [facility] URINALYSIS W/ REFLEX URINE 2021-12-31 10:37:[address] [facility] MAGNESIUM 2021-12-31 10:37:00 Prema Guerra [facility] PHOSPHORUS 2021-12-31 10:37:00 Prema Guerra [facility] PROTHROMBIN TIME/INR 2021-12-31 10:37:00 Prema Guerra [facility] CBC W/PLT COUNT & AUTO 2021-12-31 10:37:00 Prema Guerra [facility] NM BONE SCAN WHOLE BODY 2021-12-26 12:58:00 Denzel Trinidad [facility] CT CHEST WITHOUT IV 2021-12-26 08:02:00 Denzel Trinidad [facility] PROCEDURE, IN NON-OPERATING 2021-12-14 17:00:00 Surgeon [facility] CT BIOPSY LIVER 2021-12-14 11:45:00 Prema Guerra [facility] TISSUE EXAM 2021-12-14 11:40:00 Prema Guerra [facility] POCT-GLUCOSE METER 2021-12-14 07:54:00 Prema Guerra [facility] CBC W/PLT COUNT & AUTO 2021-12-14 07:41:00 Amber Wilkins CH, I [facility] DIFFERENTIAL [facility] PROTHROMBIN TIME/INR 2021-12-14 07:41:00 Amber Wilkins [facility] CBC W/PLT COUNT & AUTO 2021-12-14 07:41:00 Amber Wilkins CH I [facility] DIFFERENTIAL [facility] (CELLAVISION MANUAL DIFF) 2021-12-14 07:41:00 Amber Wilkins [facility] MR ABDOMEN WITH & WITHOUT 2021-11-29 13:29:00 Nichole Ulloa [facility] CONTRAST [facility] ELECTROCARDIOGRAM COMPLETE 2021-11-21 17:25:00 Terry Shepard [facility] CBC W/PLT COUNT & AUTO 2021-11-15 11:35:00 Prema Guerra [facility] BASIC METABOLIC PANEL 2021-11-15 11:35:00 Prema Guerra [facility] HEPATIC FUNCTION PANEL 2021-11-15 11:35:00 Prema Guerra [facility] Ana [facility] PREALBUMIN 2021-11-15 11:35:00 Prema Guerra [facility] MAGNESIUM 2021-11-15 11:35:00 Prema Guerra [facility] PHOSPHORUS 2021-11-15 11:35:00 Prema Guerra [facility] PROTHROMBIN TIME/INR 2021-11-15 11:35:00 Prema Guerra [facility] ALPHA FETOPROTEIN (AFP), 2021-11-15 11:35:00 Prema Guerra [facility] TUMOR MARKER [facility] CARCINOEMBRYONIC ANTIGEN 2021-11-15 11:35:[address] [facility] (CEA) [facility] CARBOHYDRATE ANTIGEN 19-9 2021-11-15 11:35:00 Prema Guerra CH, I [facility] (CA 19-9) [facility] CANCER ANTIGEN 125 (CA 125) 2021-11-15 11:35:00 Prema Guerra [facility] CBC W/PLT COUNT & AUTO 2021-11-15 11:35:00 Prema Guerra [facility] (CELLAVISION MANUAL DIFF) 2021-11-15 11:35:00 Prema Guerra CH, I [facility] URINALYSIS W/ REFLEX URINE 2021-11-15 11:33:00 Prema Guerra [facility] FERRITIN 2021-10-26 20:28:00 Nichole Ulloa [facility] CBC W/AUTO DIFF WITH 2021-10-26 20:28:00 Nichole Ulloa [facility] IRON+TIBC+%SAT 2021-10-26 20:28:00 Nichole Ulloa [facility] Removal of Gallbladder [facility] Plan of Care Planned Activity Planned Date Details Comments Source Future Scheduled 2024-12-20 Lipid panel (procedure) [facility] Test 00:00:00 [code = 37634883] Medical Ce nter Future Scheduled 2023-10-[address] [facility] Test 00:00:00 [facility]ing [facility] Medical Cente r Screening (12+) [code = Tobacco Cessation Counseling and Screening (12+)] Future Scheduled 2022-10-[address] [facility] Test 00:00:00 (12+) [code = Medical Center DEPRESSION SCREENING (12+)] Future Scheduled 2022-10-03 COVID-19 VACCINE (#1) [facility] 13:12:05 [code = COVID-19 Hospital VACCINE (#1)] Future Scheduled 2022-10-03 Hepatitis C screening [facility] 13:12:05 (procedure) [code = Hospital 723191113] Future Scheduled 2022-10-03 Screening for malignant [facility] 13:12:05 neoplasm of cervix Hospital (procedure) [code = 118721819] Future Scheduled 2022-10-03 BREAST CANCER SCREENING [facility] 13:12:05 [code = BREAST CANCER Hospit al SCREENING] Future Scheduled 2022-10-03 COLONOSCOPY SCREENING [facility] 13:12:05 [code = COLONOSCOPY Hospital SCREENING] Future Scheduled 2022-10-03 INFLUENZA VACCINE [code [facility] 13:12:05 = INFLUENZA VACCINE] Hospita l Future Scheduled 2022-06-13 INFLUENZA VACCINE (#1) [facility]00 [code = INFLUENZA Medical Ce nter VACCINE (#1)] Future Scheduled 2022-05-19 Screening for malignant [facility] Test 11:55:11 neoplasm of colon of Medicin e (procedure) [code = 077477631] Future Scheduled 2022-05-19 Screening for malignant [employer] Test 11:55:11 neoplasm of breast of Medici ne (procedure) [code = 044347025] Future Scheduled 2022-05-19 TETANUS SHOT (ADULT) [facility] Test 11:55:11 [code = TETANUS SHOT of Medi cine (ADULT)] Future Scheduled 2022-05-19 Diabetic foot [facility] Test 11:55:11 examination of Medicine (regime/therapy) [code = 880962491] Future Scheduled 2022-05-19 ANNUAL DIABETIC [facility] Test 11:55:11 RETINOPATHY SCREENING of Med icine [code = ANNUAL DIABETIC RETINOPATHY SCREENING] Future Scheduled 2022-05-19 BMI FOLLOW UP PLAN [facility] Test 11:55:11 [code = BMI FOLLOW UP of Med icine PLAN] Future Scheduled 2022-05-19 Human immunodeficiency B [facility] Test 11:55:11 virus screening of Medicine (procedure) [code = 826380930] Future Scheduled 2022-05-19 Screening for malignant [facility] Test 11:55:11 neoplasm of cervix of Medici ne (procedure) [code = 336590401] Future Scheduled 2022-05-19 COVID-19 Vaccine (3 - Ba [facility] Test 11:55:11 Booster for Pfizer of Medici ne series) [code = COVID-19 Vaccine (3 - Booster for Pfizer series)] Future Scheduled 2022-05-19 FLU VACCINE > 6 MONTHS B [facility] Test 11:55:11 [code = FLU VACCINE > 6 of M edicine MONTHS] Future Scheduled 2022-05-19 Hemoglobin A1c [facility] [facility] Co lleg Test 11:55:11 measurement (procedure) of M edicine [code = 37256016] Future Scheduled 2022-05-17 CT CHEST W CONTRAST 1 Occurrences [facility] Test 12:08:03 [code = 97752-6] starting of Medicine 05/17/2022 until 05/17/2023 Future Scheduled 2021-11-24 MRI ABDOMEN W WO Expected: [facility] Test 00:00:00 CONTRAST [code = 11/24/2021, of Medicine 98579-9] Expires: 10/24/2022 Future Scheduled 2021-11-21 Screening for malignant [facility] Test 14:15:36 neoplasm of breast of Medici ne (procedure) [code = 131093929] Future Scheduled 2021-11-21 TETANUS SHOT (ADULT) [facility] Test 14:15:36 [code = TETANUS SHOT of Medi cine (ADULT)] Future Scheduled 2021-11-21 BMI FOLLOW UP PLAN [facility] Test 14:15:36 [code = BMI FOLLOW UP of Med icine PLAN] Future Scheduled 2021-11-21 Human immunodeficiency B [facility] Test 14:15:36 virus screening of Medicine (procedure) [code = 273454122] Future Scheduled 2021-11-21 Screening for malignant [facility] Test 14:15:36 neoplasm of cervix of Medici ne (procedure) [code = 192300753] Future Scheduled 2021-11-21 FLU VACCINE > 6 MONTHS B [facility] Test 14:15:36 [code = FLU VACCINE > 6 of M edicine MONTHS] Future Scheduled 2021-11-21 COVID-19 Vaccine (3 - Ba [facility] Test 14:15:36 Booster for Pfizer of Medici ne series) [code = COVID-19 Vaccine (3 - Booster for Pfizer series)] Future Scheduled 2021-11-21 CBC W/AUTO DIFF WITH Ordered: [facility] Test 12:16:54 PLATELETS [code = 11/21/2021 of Medicin e 45852-8] Future Scheduled 2021-11-21 NT-PROBNP [code = Ordered: [facility] Test 12:16:54 63701-2] 11/21/2021 of Medicine Future Scheduled 2021-11-21 LIPID PANEL [code = Ordered: [facility] Test 12:16:54 17580-9] 11/21/2021 of Medicine Future Scheduled 2021-11-21 TSH+T4F+T3FREE [code = Ordered: B [facility] Test 12:16:54 [id number]] 11/21/2021 of Medicine Future Scheduled 2021-11-21 ELECTROCARDIOGRAM [facility] Test 11:25:01 COMPLETE [code = 28302] of M edicine Diagnostic Test 2021-11-21 ECHO, COMPLETE [code = Expected: [facility] Pending 00:00:00 36689] 11/21/2021, of Medicine Expires: 05/21/2022 Future Scheduled 2021-11-[address] [facility] [address] [facility] Test 00:00:00 measurement (procedure) [facility] [code = 26776793] Future Scheduled 2021-10-29 Screening for malignant [facility] Test 10:06:05 neoplasm of breast of Medici ne (procedure) [code = 053218891] Future Scheduled 2021-10-29 TETANUS SHOT (ADULT) [facility] Test 10:06:05 [code = TETANUS SHOT of Medi cine (ADULT)] Future Scheduled 2021-10-29 BMI FOLLOW UP PLAN [facility] Test 10:06:05 [code = BMI FOLLOW UP of Med icine PLAN] Future Scheduled 2021-10-29 Human immunodeficiency B [facility] Test 10:06:05 virus screening of Medicine (procedure) [code = 998759753] Future Scheduled 2021-10-29 Screening for malignant [facility] Test 10:06:05 neoplasm of cervix of Medici ne (procedure) [code = 811354932] Future Scheduled 2021-10-29 FLU VACCINE > 6 MONTHS B [facility] Test 10:06:05 [code = FLU VACCINE > 6 of edicine MONTHS] Future Scheduled 2021-10-24 HEMOGLOBIN Ordered: [facility]le ege Test 16:00:08 ELECTROPHORESIS [code = 10/24/2021 of M edicine NOCPT] Future Scheduled 2021-07-09 COVID-19 VACCINE (3 - [facility] Test 00[facility] Pfizer risk series) [facility] Center [code = COVID-19 VACCINE (3 - Pfizer risk series)] Future Scheduled 1998 Screening for malignant [facility] Test 00:00:00 neoplasm of cervix Medical C enter (procedure) [code = 566152100] Future Scheduled 1996-02-10 DTAP/TDAP/TD VACCINES [facility] Test 00:00:00 (1 - Tdap) [code = Medical C enter DTAP/TDAP/TD VACCINES (1 - Tdap)] Future Scheduled 1987 DIABETIC EYE EXAM [code [facility] Test 00:00:00 = DIABETIC EYE EXAM] Medical Center Future Scheduled [address] [facility] Test 00:[facility]:00 examination Medical Center (regime/therapy) [code = 983724648] Future Scheduled 1987 Urine screening for [facility] Test 00:00:00 protein (procedure) Medical Center [code = 599279496] Future Scheduled [address] [facility] Test 00:00:00 0-64 YRS (1 - PCV) Medical C enter [code = PNEUMOCOCCAL VACCINE 0-64 YRS (1 - PCV)] Future Scheduled 1977 CT Colonography (combo) [facility] Test 00:00:00 [code = CT Colonography [facility] (combo)] Future Scheduled 1977 Screening for malignant [facility] Test 00:00:00 neoplasm of colon Medical Ce nter (procedure) [code = 538215139] Future Scheduled 1977 Screening for malignant [facility] Test 00:00:00 neoplasm of colon Medical Ce nter (procedure) [code = 582782330] Future Scheduled 1977 Screening for malignant [facility] Test 00:00:00 neoplasm of colon Medical Ce nter (procedure) [code = 655377724] Future Scheduled 1977 Screening for malignant [facility] Test 00:00:00 neoplasm of colon Medical Ce nter (procedure) [code = 969971814] Future Scheduled 1977 Sigmoidoscopy [code = [facility] Test 00:00:00 [facility] Start End Encounter Admission Attending Care Care Encounter Source Date/Time Date/Time Type Type Clinicians Facility Department ID 2022-10-22 Outpatient BACCAM, DI ELCAMPO ELCAMPO [id number] 97-2 El 13:45:35 [id number] [id number] 2022-09-26 Outpatient BACCAM, DI ELCAMPO ELCAMPO [id number] 97-2 El 09:54:45 [id number] [facility] [id number] [facility] 2022-09-20 Outpatient BACCAM, DI ELCAMPO ELCAMPO [id number] 97-2 El 11:15:33 [id number] [facility] [id number] [facility] 2022-09-19 Outpatient BACCAM, DI ELCAMPO ELCAMPO [id number] 97-2 El 12:58:20 [id number] [facility] [id number] [facility] 2022-07-18 Outpatient BACCAM, DI ELCAMPO ELCAMPO [id number] 97-2 El 12:57:49 [id number] [facility] [id number] [facility] 2022-07-11 Outpatient DI COTTON ELCAMPO ELCAMPO [id number] 97-2 El 15:26:53 [id number] [facility] [id number] [facility] 2022-06-04 Outpatient KARTIK BORREGO ELCHELSYPO ELCAMPO [id number] 97-2 El 10:13:59 [id number] [facility] 2022-02-26 Outpatient KARTIK BORREGO ELCAMPO ELCAMPO [id number] 97-2 El 13:54:21 [id number] [facility] 2021-11-19 Inpatient EL [facility] Surgery [id number] [facility] 14:15:47 2021-07-22 Outpatient RESENDIZ, [facility] Surgery [id number] [facility] 04:59:53 LUCY 2018-10-30 Inpatient C TINA, III, [facility] [id number] [facility] 15:45:00 [facility] 2022-10-23 2022-10-23 [facility] [id number] 12:00:00 12:00:00 Encounter [facility] 2022-10-19 2022-10-19 Outpatient Andie SUBRAMANIAN [facility] [id number] [facility] 21:19:00 23:15:00 [facility] 2022-10-11 2022-10-11 Outside [facility] [id number] 00:00:00 00:00:00 Orders [facility] 2022-10-09 2022-10-09 [facility] [id number] 11:00:00 12:00:00 Visit [facility] 2022-09-27 2022-10-08 Outpatient RENETTA ULLOA [facility] [id number] [facility] 00:00:00 10:17:37 [facility] Josephine chaves of Medicin e 2022-10-08 2022-10-08 [facility]at [facility] [id number] 00:00:00 00:00:00 ion Taylor [facility] 2022-10-03 2022-10-03 Office Nasreen [facility] [id number] 13:00:00 14:00:00 Visit Betsy Leary [facility] 2022-10-03 2022-10-03 Orders Britalcira [facility] [id number] 00:00:00 00:00:00 Only [facility] 2022-09-23 2022-09-23 [facility] [id number] [facility] 00:00:00 00:00:00 [facility] 2022-09-20 2022-09-20 Outpatient DI MAMONTY [facility] [id number] 12:59:00 15:28:00 [id number] Cam po [id number] [facility] 2022-09-18 2022-09-18 Outpatient DARIAHARLEY [facility] [id number] [facility] 08:35:55 09:33:32 [facility] 2022-09-18 2022-09-18 Outpatient Andie [facility] [id number] [place] 00:34:00 01:40:00 SONAL Wayne [facility] 2022-08-30 2022-08-[address] [facility] [id number] [facility] 11:01:09 23:59:00 [facility] 2022-08-30 2022-08-30 [facility] [id number] 11:01:09 23:59:00 Encounter [facility] 2022-08-30 2022-08-30 [facility] [id number] 13:30:00 13:30:00 Encounter [facility] 2022-08-30 2022-08-[address] [facility] [id number] [facility] 11:00:41 11:00:41 [facility] 2022-08-30 2022-08-30 [facility] [id number] 11:00:41 11:00:41 Encounter [facility] 2022-08-30 2022-08-[address] [facility] [id number] [facility] 10:28:16 10:59:00 [facility] 2022-08-30 2022-08-30 [facility] [id number] 10:28:16 10:59:00 Encounter [facility] 2022-08-07 2022-08-07 [facility] [id number] 00:00:00 00:00:00 Orders [facility] 2022-07-19 2022-07-19 Outpatient DI MAMONTY [facility] [id number] El 12:58:00 12:58:00 [id number] Cam po [id number] [facility] 2022-07-12 2022-07-12 Outpatient DI MACHELSYPO [facility]MAN [facility] [id number] El 15:29:00 15:29:00 [id number] Cam po [id number] [facility] 2022-06-04 2022-06-04 Outpatient GLYNN PEREZ NUVIA [id number] El 10:12:00 11:10:00 [id number] [facility] 2022-05-23 2022-05-23 Outpatient TRINO ULLOA [facility] SLE [id number] SLE 14:21:04 23:59:00 [facility] 2022-05-23 2022-05-23 [facility] [id number] 14:21:04 23:59:00 Encounter [facility] 2022-05-17 2022-05-17 [facility] BRITALCIRA [facility] [id number] [facility] 11:21:43 12:59:51 Visit NICHOLE Barth.1.13.21 Co oscar 0.2.7.2.686 [id number] [facility] 504 e 2022-05-17 2022-05-17 Outside Artemio [facility] [id number] 00:00:00 00:00:00 Orders [facility] 2022-05-02 2022-05-02 Outpatient EL VIVI DENZEL SLS [facility] [id number] [facility] 15:10:36 23:59:00 2022-05-02 2022-05-02 [facility] ViviDenzel [facility] [id number] 14:42:03 23:59:00 Encounter [facility] 2022-05-02 2022-05-02 Office ViviDenzel [facility] [id number] [facility] 10:45:00 11:00:00 Visit Klaudia Barrera [facility] 2022-05-02 2022-05-02 Outpatient EL KLAUDIA BARRERA SLE SLE [id number] [facility] 10:41:28 10:41:28 2022-05-02 2022-05-02 Orders Artemio [facility] [id number] 00:00:00 00:00:[address] [facility] 2022-05-02 2022-05-02 Outside Vivi [facility] [id number] 00:00:00 00:00:00 Orders [facility] 2022-04-18 2022-04-18 Outpatient EL SLEH [facility] [id number] [facility] 00:00:00 00:00:00 2022-04-08 2022-04-08 Outpatient EL SLEH [facility] [id number] [facility] 00:00:00 00:00:00 2022-03-18 2022-03-18 Outpatient NAIN [facility] [id number] 12:58:00 13:49:00 [id number] [facility] 2022-03-18 2022-03-18 Outpatient EL SLEH [facility]H [id number] [facility] 00:00:00 00:00:00 2022-02-26 2022-02-26 [facility] [id number] El 13:54:00 17:03:00 [id number] Cam po [id number] [facility] 2022-02-15 2022-02-15 Outpatient RENETTA ULLOA [facility] [id number] [facility] 10:55:27 11:20:44 NICHOLE [facility] 2022-02-13 2022-02-[address] [facility] [id number] SLE 00:00:00 00:00:00 2022-02-07 2022-02-08 Emergency ER RAJENDRA JIMENEZ Emergency [id number] SLE 21:33:00 03:53:00 ISMAEL 2022-02-07 2022-02-08 Emergency Beatris Ho [facility] [id number] 21:33:00 03:53:00 Ismael Jimenez [facility] 2022-02-07 2022-02-07 Outpatient JOSUÉ PANCHAL [facility] [id number] El 15:53:00 16:45:00 [id number] [facility] 2022-02-07 2022-02-07 Office Denzel Trinidad [facility] [id number] 10:00:00 10:30:00 Visit [facility] 2022-02-07 2022-02-07 Outpatient DENZEL VILLANUEVA [facility] [id number] SLE 10:23:51 10:23:51 2022-02-07 2022-02-07 Travel [facility] [id number] [facility] 00:00:00 00:00:00 [facility] 2022-02-07 2022-02-07 Telephone Artemio [facility] [id number] 00:00:00 00:00:00 [facility] 2022-02-06 2022-02-06 Emergency ER SANYA [facility] Emergency [id number] [facility] 03:12:00 04:25:00 MANNY 2022-02-06 2022-02-06 Emergency Sanya [facility] [id number] 03:12:00 04:25:00 [facility] 2022-02-06 2022-02-06 Telephone Dami [facility] [id number] 00:00:00 00:00:00 [facility] 2022-02-04 2022-02-04 [facility] [id number] 00:00:00 00:00:00 [facility] 2022-01-30 2022-01-[address] [facility] [id number] SLE 10:09:21 23:59:00 2022-01-30 2022-01-30 [facility] [id number] 10:09:21 23:59:00 Encounter [facility] 2022-01-28 2022-01-28 Office Denzel Trinidad [facility] [id number] [facility] 09:30:00 10:00:00 Visit Bruce Klaudia [facility] 2022-01-28 2022-01-28 Outpatient [facility]UDIA [facility] [id number] SLE 09:46:15 09:46:15 2022-01-08 2022-01-23 Inpatient DENZEL VILLANUEVA [facility] Surgery [id number] SLE 05:48:00 11:33:00 2022-01-08 2022-01-23 [facility] [id number] 05:48:00 11:33:00 Encounter [facility] 2022-01-23 2022-01-23 Telephone Dami [facility] [id number] 00:00:00 00:00:00 [facility] 2022-01-08 2022-01-08 Outpatient BCM [facility] [id number] [facility] 05:48:00 23:59:00 Manasa 2022-01-08 2022-01-08 Anesthesia Carmel Jade [facility] [id number] 07:11:00 13:52:00 Event Biju Martinez [facility] 2022-01-08 2022-01-08 Surgery Denzel Trinidad [facility] [id number] 07:30:00 13:15:00 [facility] 2022-01-08 2022-01-08 Outpatient [facility] [id number] [facility] 00:00:00 05:47:00 [facility] 2022-01-08 2022-01-08 Orders [facility] [id number] 00:00:00 00:00:00 Only [facility] 2022-01-07 2022-01-07 Outpatient TRINO DREW SLE [id number] SLE 09:57:07 23:59:00 2022-01-07 2022-01-07 [facility] [id number] 09:05:00 23:59:00 Encounter [facility] 2022-01-07 2022-01-07 [facility] [id number] 00:00:00 00:00:00 Only [facility] 2022-01-07 2022-01-07 Telephone Dami [facility] [id number] 00:00:00 00:00:00 [facility] 2022-01-07 2022-01-07 Travel [facility] [id number] [facility] 00:00:00 00:00:00 [facility] 2022-01-04 2022-01-04 Telephone Dami [facility] [id number] 00:00:00 00:00:00 [facility] 2022-01-03 2022-01-03 Outpatient RAJENDRA ALMANZA SLE [id number] [facility] 12:41:02 23:59:00 TANNSTEPHEN 2022-01-03 2022-01-03 [facility] Nichole Ulloa [facility] [id number] 12:30:00 23:59:00 Encounter 1, [facility] [address] Room [facility] 2022-01-03 2022-01-03 Outpatient EL SLEH SLEH [id number] [facility] 11:50:57 11:50:57 2022-01-03 2022-01-03 Clinical Denzel Trinidad [facility] [id number] 11:30:00 11:45:00 Support Rianna Weinstein [facility] 2022-01-03 2022-01-03 Tumor Artemio [facility] [id number] 00:00:00 00:00:00 Board [facility] 2022-01-01 2022-01-01 Telephone Artemio [facility] [id number] 00:00:00 00:00:00 [facility] 2021-12-31 2021-12-31 Orders Prema Guerra [facility] [id number] 10:30:00 10:45:00 Only SergeAntonio [facility] 2021-12-31 2021-12-31 Outpatient EL SLEH SLEH [id number] [facility] 10:19:46 10:19:46 2021-12-31 2021-12-31 Outpatient EL SLEH SLEH [id number] [facility] 00:00:00 00:00:00 2021-12-31 2021-12-31 Outpatient EL SLEH SLEH [id number] [facility] 00:00:00 00:00:00 2021-12-31 2021-12-31 Outpatient EL SLEH SLEH [id number] [facility] 00:00:00 00:00:00 2021-12-31 2021-12-31 Documentat Dami [facility] [id number] 00:00:00 00:00:00 ion [facility] 2021-12-30 2021-12-30 Telephone Saeed [facility] [id number] 00:00:00 00:00:00 [facility] 2021-12-28 2021-12-28 Outpatient RENETTA COFFEY [facility] [id number] [facility] 09:33:57 11:51:07 [facility] 2021-12-28 2021-12-28 Outpatient [facility] [id number] [facility] 09:09:35 11:32:57 [facility] 2021-12-27 2021-12-27 Telephone Dami [facility] [id number] 00:00:00 00:00:00 [facility] 2021-12-27 2021-12-27 Documentat Dami [facility] [id number] 00:00:00 00:00:00 ion [facility] 2021-12-26 2021-12-26 Outpatient DENZEL VILLANUEVA [facility] [id number] SLE 08:33:27 23:59:00 2021-12-26 2021-12-26 [facility] [id number] 08:33:27 23:59:00 Encounter [facility] 2021-12-26 2021-12-26 [facility] [id number] 08:33:07 23:59:00 Encounter [facility] 2021-12-26 2021-12-26 Outpatient DENZEL VILLANUEVA [facility] [id number] SLE 08:33:06 23:59:00 2021-12-26 2021-12-26 Outpatient DENZEL VILLANUEVA [facility] [id number] [facility] 07:34:31 08:32:00 2021-12-26 2021-12-26 [facility] [id number] 07:34:31 08:32:00 Encounter [facility] 2021-12-21 2021-12-21 Outpatient ARTEMIO RENETTA [facility] [id number] [facility] 11:15:49 11:35:11 [facility] 2021-12-19 2021-12-19 Jaymie Guerra [facility] [id number] 00:00:00 00:00:00 Only [facility] 2021-12-14 2021-12-14 Outpatient RAJENDRA NAYLOR [facility] [id number] [facility] 09:38:44 23:59:00 PREMA 2021-12-14 2021-12-14 [facility] Prema Guerra [facility] [id number] 09:00:00 23:59:00 Encounter Vivi [facility] 2021-12-14 2021-12-14 Outpatient RAJENDRA NAYLOR Surgery [id number] SLE 07:22:00 16:05:00 PREMA 2021-12-14 2021-12-14 [facility] Prema Guerra [facility] [id number] 07:22:00 16:05:00 Encounter Vivi [facility] 2021-12-14 2021-12-14 Surgery [facility] [id number] 09:00:00 09:30:00 Surgeon [facility] 2021-12-14 2021-12-14 Outside Ovi [facility] [id number] 00:00:00 00:00:00 Orders Zain [facility] 2021-12-14 2021-12-14 Travel [facility] [id number] [facility] 00:00:00 00:00:00 [facility] 2021-12-10 2021-12-10 Office Denzel Trinidad [facility] [id number] [facility] 09:30:00 10:00:00 Visit Shaye Loza [facility] 2021-12-10 2021-12-10 Outpatient TRINO HallmanRAMONERAJENDRA [facility] [id number] [facility] 09:46:18 09:46:18 SHAYE 2021-12-07 2021-12-07 Outpatient RENETTA ULLOA Graciela [id number] [facility] 11:57:29 12:17:35 NICHOLE Damon Medicin e 2021-12-06 2021-12-06 Outpatient [facility] [id number] [facility] 10:17:42 11:13:44 [facility] 2021-12-06 2021-12-06 Telephone Artemio [facility] [id number] 00:00:00 00:00:00 [facility] 2021-12-06 2021-12-06 Documentat Rodriguez [facility] [id number] 00:00:00 00:00:00 ion Maksim [facility] 2021-11-29 2021-11-[address] [facility] [id number] [facility] 12:31:01 23:59:00 [facility] 2021-11-29 2021-11-29 [facility] Artemio [facility] [id number] 12:31:01 23:59:00 Encounter 3, [facility] Nafisa [facility] 2021-11-26 2021-11-26 Abstract Bran [facility] [id number] 00:00:00 00:00:00 [facility] 2021-11-21 2021-11-21 Office Plana [facility] [id number] [facility] 11:20:00 13:44:35 Visit Terry Hercules AMBULATOR [id number] [facility] [id number] Medi daria 375 e 2021-11-21 2021-11-21 Outpatient [facility] [id number] [facility] 12[facility]56:58 12:56:58 [facility] 2021-11-21 2021-11-21 [id number] [facility] 00[facility]00 00:00:00 [facility] 2021-11-20 2021-11-20 Outpatient RENETTA CHARLTON [facility] [id number] [facility] 12:39:19 13:04:04 [facility] 2021-11-16 2021-11-16 Orders Dami [facility] [id number] [facility] 00:00:00 00:00:00 Only [facility] 2021-11-15 2021-11-15 Office Denzel Trinidad [facility] [id number] [facility] 10:00:00 10:30:00 Visit [facility] 2021-11-15 2021-11-15 Outpatient DENZEL VILLANUEVA [facility] [id number] [facility] 10:08:36 10:08:36 2021-11-12 2021-11-12 Outpatient TRINO [facility] [id number] [facility] 00:00:00 00:00:00 2021-11-07 2021-11-07 Telephone Dami [facility] [id number] [facility] 00[facility]:00 [facility] 2021-11-07 2021-11-07 Orders Artemio [facility] [id number] [facility] 00[facility]00 00:00:[address] [facility] 2021-11-01 2021-11-01 Tumor Artemio [facility] [id number] [facility] 00[facility] 00:00:00 Board [facility] 2021-11-01 2021-11-01 Documentat Michael [facility] [id number] 00[facility] 00:00:00 ion [facility] 2021-11-01 2021-11-01 Alexandre Rodriguez [facility] [id number] 00[facility]00[facility]00 00:00:00 ion [facility] 2021-10-31 2021-10-31 Outside Artemio [facility] [id number] 00:00[facility]00 00:00:00 Orders [facility] 2021-10-24 2021-10-24 Office DOMINIQUE ULLOAAlessandro [id number] [facility] 14:54:03 16:33:14 Visit NICHOLE Lovingr [id number] Co llege [id number] [facility] 504 e 2021-09-20 2021-09-20 Outpatient DENZEL VILLANUEVA Surgery [id number] [facility] 08:28:00 18:42:00 2021-09-20 2021-09-20 Outpatient DENZEL VILLANUEVA SLE [id number] [id number] [facility] 15:29:50 15:29:50 2021-09-20 2021-09-20 Outpatient RAJENDRA NAYLOR SLE [id number] [facility] 13:56:55 13:56:55 PREMA 2021-09-19 2021-09-19 Outpatient EL SLE SLE [id number] [facility] 15:07:38 23:59:00 2021-08-28 2021-08-28 Outpatient DENZEL VILLANUEVA [facility] SLE [id number] [facility] 16:27:18 23:59:00 2021-08-28 2021-08-28 Outpatient EL SLE SLE [id number] [facility] 16:19:59 16:19:59 2021-08-08 2021-08-08 Outpatient DENZEL VILLANUEVA [facility] SLE [id number] [facility] 00:00:00 00:00:00 2021-08-08 2021-08-08 Outpatient EL SLE SLE [id number] [facility] 00:00:00 00:00:00 2021-07-17 2021-07-17 Outpatient LAURA SALDANA [facility] [address] [place] 09:52:00 09:52:00 _ANN 1005 [facility] 2021-05-14 2021-05-14 Outpatient EL [facility] [id number] [facility] 00:00:00 00:00:00 2021-04-30 2021-04-30 Outpatient LAURA SALDANA [facility] [address] [place] 04:38:00 04:38:00 _ANN 0719 [facility] 2021-04-30 2021-04-30 [place] - [id number] 021 [place] 00:00:00 00:00:00 : Milly Foster [address] [facility], [employer] [address], [facility], [place] [address] , Ph. 2021-04-29 2021-04-29 Outpatient Johnny[facility]W [facility] [id number] [place] 12:46:00 12:46:00 0718 Medical [facility] 2021-04-24 2021-04-24 [place]ear[place] - [id number] 021 [place] 00:00:00 00:00:00 : Milly Foster [address] [place] [address], [employer] [address], [facility], [place]-[facility] [address] , Ph. 2021-03-30 2021-03-30 Outpatient Johnny_W [facility] [id number] [place] 05:13:00 05:13:00 0618 [facility] 2021-02-26 2021-02-26 Outpatient SLE SLEH [id number] SLE 00:00:00 00:00:00 2020-01-14 2020-01-14 Emergency E CARLI GRAY [facility] [id number] [facility] 08:51:00 12:34:00 2019-10-30 2019-10-31 Emergency [facility] [id number] [place] [address] 00:00:00 00:00:00 BECCA Champagne Method i 2019-10-28 2019-10-28 Outpatient E TIMA CHILDS [facility] [id number] [facility] 11:58:00 13:36:00 [facility] [place] 2018-12-15 2018-12-15 Outpatient Alessandro WILDER III, [facility] [id number] [facility] 10:37:00 23:59:00 YAAKOV [facility] [place] 2018-11-17 2018-11-17 Outpatient Alessandro WILDER III, [facility] [id number] [facility] 10:59:00 23:59:00 YAAKOV [facility] [place] 2018-11-10 2018-11-10 Outpatient Alessandro TRIVEDI [facility] [id number] [facility] 09:39:00 23:59:00 PEPPER [facility] [place] 2018-11-02 2018-11-02 Emergency Andie GUERRA [facility] [id number] [place] 12:49:00 15:49:00 [facility] Results Test Description Test Time Test Comments Results Result Comments Source URINE CULTURE 2022-10-22 09:32:00 Test Item Value Reference Range Interpretation Comme nts Isolate 1 (test code = ISO1) Escherichia coli A ampicillin (test code = am) ug/mL R piperacillin/tazobactam (test code = tzp) ug/mL S ceftazidime (test code = villa) ug/mL S ceftriaxone1 (test code = ctr) ug/mL S cefepime (test code = fep) ug/mL S aztreonam (test code = azm) ug/mL S ertapenem (test code = etp) ug/mL S meropenem (test code = mem) ug/mL S gentamicin (test code = gm) ug/mL S tobramycin (test code = tob) ug/mL S levofloxacin (test code = lev) ug/mL S trimethoprim/sulfamethoxazole (test code = sxt) ug/mL R nitrofurantoin (test code = ftn) ug/mL S GLUCOMETER GLUCOSE- LAB USE [id number] 23:07:00 Test Item Value Reference Range Interpretation Comments GLUCOMETER (test code = 294 mg/dL 70-100 H Mete r ID: GMG) [id number] tor: [id number] [facility] 12 PANEL *OW* [id number] 22:27:00 Test Item Value Reference Range Interpretation Comments ALBUMIN (test code = GALB) 3.7 g/dL 3.5-5.5 GLUCOSE (test code = GGUL) 398 mg/dL 73-118 H CREATININE (test code = GCRE) 0.9 mg/dL 0.6-1.2 BUN (test code = GBUN) 13 mg/dL 7-22 CALCIUM (test code = GCL+) 10.0 mg/dL 8.0-10.3 SODIUM (test code = GNA+) 135 mmol/L 128-145 POTASSIUM (test code = GK+) 4.4 mmol/L 3.6-5.1 CHLORIDE (test code = GCL-) 102 mmol/L 98-108 TCO2 (test code = GTC02) 24 mmol/L 18-33 MAGNESIUM (test code = GMG+) 2.2 mg/dL 1.6-2.3 LACTATE (test code = RODY) 2.08 mmol/L 0.53-2.10 PHOSPHORUS (test code = OPHOS) 3.7 mg/dL 2.2-4.1 CBC (INCLUDES AUTOMATED DIFFERENTIAL) *2022-10-19 22:13:00 Test Item Value Reference Range Interpretation Comments WBC (test code = WBC) 9.5 10\\S\\3/uL 4.5-11.0 RBC (test code = RBC) 4.31 10\\S\\6/uL 4.20-5.60 HGB (test code = HBG) 11.0 g/dL 12.0-15.5 L HCT (test code = HCT) 36.0 % 35.0-44.0 MCV (test code = MCV) 83.6 fL 81.0-99.0 MCH (test code = MCH) 25.5 pg 27.0-31.0 L MCHC (test code = MCHC) 30.6 g/dL 32.0-36.0 L RDW (test code = RDW) 15.3 % 11.5-14.5 H PLT (test code = PLT) 349 10\\S\\3/uL 130-400 MPV (test code = OMPV) 7.2 fL 6.2-10.2 NEUTROP # (test code = NE#) 6.7 10\\S\\3/uL 1.6-8.0 LYMPH # (test code = LY#) 1.8 10\\S\\3/uL 1.1-3.5 MID # (test code = GMID#) 1.0 10\\S\\3/uL 0.0-1.1 GRAN % (test code = GRA%) 70.9 % 35.0-73.0 LYMPH % (test code = GLY%) 19.0 % 20.0-55.0 L MID % (test code = GMID%) 10.1 % 0.0-10.0 H URINALYSIS W/O [id number] 22:09:00 Test Item Value Reference Range Interpretation Comments COLOR (test code = Yellow YELLOW COLU) CLARITY (test code = Clear CLEAR CLA) GLUCOSE UR (test 3+ NEGATIVE A code = UA GLUCOSE) BILI UR (test code = Negative NEGATIVE BILE) KETONES UR (test Negative NEGATIVE code = OSEI) SP GRAVITY (test 1.010 1.005-1.030 code = SPGR) PH UR (test code = 6.0 4.5-8.0 PH) PROTEIN UR (test 1+ NEGATIVE A code = PU) NITRITE UR (test Positive NEGATIVE code = NITRITE) UROBIL UR (test code 0.2 E.U./dL = GUROQ) UROBIL UR (test code UROBILINOGEN = GUROQC) REFERENCE RANGE 0.2 - 1.0 EU/dL BLOOD UR (test code 3+ NEGATIVE A = UA BLOOD) LEUK ES UR (test 1+ NEGATIVE A code = LEUK) GLUCOMETER GLUCOSE- LAB USE [id number] 21:48:00 Test Item Value Reference Range Interpretation Comments GLUCOMETER (test code 415 mg/dL 70-100 H CLEANE D METERMeter ID: = GMG) [id number] tor: [id number] [facility] UILAR ANTI-NUCLEAR ANTIBODY (LILIANA)2022-10-04 13:24:00 Test Item Value Reference Range Interpretation Comments ANTI-NUCLEAR ANTIBODY (LILIANA) (BEAKER) Negative Negative (test code = 418) Test performed by IFA method.[id number] 18:03:21 Test Item Value Reference Range Interpretation Comments FERRITIN (BEAKER) (test code = 47.03 ng/mL 5.00-275.00 361) Car Oiler ID - BSHEPATITIS B SURFACE [id number] 17:24:59 Test Item Value Reference Range Interpretation Comments HEPATITIS B SURFACE ANTIBODY 8.8 mIU/mL <8.0 H (BEAKER) (test code = 647) Car Oiler ID - BSHEPATITIS C [id number] 17:21:28 Test Item Value Reference Range Interpretation Comments HEPATITIS C ANTIBODY (BEAKER) Nonreactive Nonreactive (test code = 367) Car Oiler ID - BSHEPATITIS B SURFACE [id number] 17:18:36 Test Item Value Reference Range Interpretation Comments HEPATITIS B SURFACE ANTIGEN (2) Nonreactive Nonreactive (BEAKER) (test code = 2585) Specimen is considered negative for HBsAg.ALPHA FETOPROTEIN (AFP), TUMOR MARKER 2022-10-03 17:18:36 Test Item Value Reference Range Interpretation Comments ALPHA-FETOPROTEIN (BEAKER) (test 2.4 ng/mL <10.0 code = 1094) Car Oiler ID - BSHEPATITIS B CORE ANTIBODY, [id number] 17:18:36 Test Item Value Reference Range Interpretation Comments HEPATITIS B CORE TOTAL ANTIBODY Nonreactive Nonreactive (BEAKER) (test code = 497) Car Oiler ID - BSHEPATITIS A ANTIBODY, [id number] 17:18:36 Test Item Value Reference Range Interpretation Comments HEPATITIS A IGG ANTIBODY (BEAKER) Nonreactive Nonreactive (test code = 2797) Car Oiler ID - BSBILIRUBIN, [id number] 17:00:09 Test Item Value Reference Range Interpretation Comments BILIRUBIN DIRECT (BEAKER) (test 1.4 mg/dL 0.1-0.5 H code = 706) Car Oiler ID - BSCOMPREHENSIVE METABOLIC [id number] 17:00:03 Test Item Value Reference Range Interpretation Comments TOTAL PROTEIN 8.7 gm/dL 6.0-8.3 H (BEAKER) (test code = 770) ALBUMIN (BEAKER) 3.9 g/dL 3.5-5.0 (test code = 1145) ALKALINE 191 U/L 40-150 H PHOSPHATASE (BEAKER) (test code = 346) BILIRUBIN TOTAL 2.3 mg/dL 0.2-1.2 H (BEAKER) (test code = 377) SODIUM (BEAKER) 139 meq/L 136-145 (test code = 381) POTASSIUM (BEAKER) 4.0 meq/L 3.5-5.1 (test code = 379) CHLORIDE (BEAKER) 102 meq/L 98-107 (test code = 382) CO2 (BEAKER) (test 22 meq/L 22-29 code = 355) BLOOD UREA 15 mg/dL 7-21 NITROGEN (BEAKER) (test code = 354) CREATININE 1.01 mg/dL 0.57-1.25 (BEAKER) (test code = 358) GLUCOSE RANDOM 150 mg/dL 70-105 H (BEAKER) (test code = 652) CALCIUM (BEAKER) 10.0 mg/dL 8.4-10.2 (test code = 697) AST (SGOT) 61 U/L 5-34 H (BEAKER) (test code = 353) ALT (SGPT) 38 U/L 6-55 (BEAKER) (test code = 347) EGFR (BEAKER) 70 Interpretatio n of eGFR (test code = 1092) mL/min/1.[address] age Description sq m Result G1 Kerrie l or high >=90 G2 Mildly decreased 60-89 G3a Mildl y to moderately 45-5 9 G3b Moderately to s everely 30-44 G4 Severl y decreased 15-29 G5 Kidney failure <15Reported eGF R is based on the CKD-EPI 2020 equation that d oes not use a race coefficientEsti mated GFR is not as accur ate as Creatinine Treva chante in predicting glom erular filtration rate . Estimated GFR is not appl icable for dialysis patien ts Car Oiler ID - BSIRON, TIBC, % SAT. (WITHOUT FERRITIN)2022-10-03 16:56:26 Test Item Value Reference Range Interpretation Comments IRON (BEAKER) (test code = 547) 68.0 ug/dL 40.0-160.0 TOTAL IRON BINDING CAPACITY 424 ug/dL 250-450 (Bunchball) (test code = 769) IRON % SATURATION (2) (BEAKER) 16 % 20-55 L (test code = 2590) Car Oiler ID - [id number] 16:56:05 Test Item Value Reference Range Interpretation Comments ALPHA-1 ANTITRYPSIN (Lattice EnginesAKER) 200.60 mg/dL 90.00-200.00 H (test code = 502) Car Oiler ID - BSPROTHROMBIN TIME/[id number] 16:36:21 Test Item Value Reference Range Interpretation Comments PROTIME (BEAKER) 16.2 seconds 11.9-14.2 H (test code = 759) INR (BEAKER) (test 1.38 See_Comment [Automat ed message] code = 370) The system [employer] generated this result transmitted ref erence range: <=5.90. The reference range was not used to int erpret this result as normal/abnormal . RECOMMENDED COUMADIN/WARFARIN INR THERAPY RANGESSTANDARD DOSE: 2.0 - 3.0 Includes: PROPHYLAXIS for venous thrombosis, systemic embolization; TREATMENT for venous thrombosis and/or pulmonary embolus.HIGH RISK: Target INR is 2.5-3.5 for patients with mechanical heart valves.CBC W/PLT COUNT & AUTO [id number] 16:27:38 Test Item Value Reference Range Interpretation Comments WHITE BLOOD CELL COUNT (BEAKER) 10.7 K/ L 3.5-10.5 H (test code = 775) RED BLOOD CELL COUNT (BEAKER) 4.52 M/ L 3.93-5.22 (test code = 761) HEMOGLOBIN (BEAKER) (test code = 11.2 GM/DL 11.2-15.7 410) HEMATOCRIT (BEAKER) (test code = 37.7 % 34.1-44.9 411) MEAN CORPUSCULAR VOLUME (BEAKER) 83 fL 79-95 (test code = 753) MEAN CORPUSCULAR HEMOGLOBIN 24.8 pg 25.6-32.2 L (BEAKER) (test code = 751) MEAN CORPUSCULAR HEMOGLOBIN CONC 29.7 GM/DL 32.2-35.5 L (BEAKER) (test code = 752) RED CELL DISTRIBUTION WIDTH 17.1 % 11.7-14.4 H (BEAKER) (test code = 412) PLATELET COUNT (BEAKER) (test 464 K/CU MM 150-450 H code = 756) MEAN PLATELET VOLUME (BEAKER) 9.4 fL 9.4-12.3 (test code = 754) NUCLEATED RED BLOOD CELLS 0 /100 WBC 0-0 (BEAKER) (test code = 413) NEUTROPHILS RELATIVE PERCENT 60 % (BEAKER) (test code = 429) LYMPHOCYTES RELATIVE PERCENT 27 % (BEAKER) (test code = 430) MONOCYTES RELATIVE PERCENT 9 % (BEAKER) (test code = 431) EOSINOPHILS RELATIVE PERCENT 3 % (BEAKER) (test code = 432) BASOPHILS RELATIVE PERCENT 1 % (BEAKER) (test code = 437) NEUTROPHILS ABSOLUTE COUNT 6.46 K/ L 1.56-6.13 H (BEAKER) (test code = 670) LYMPHOCYTES ABSOLUTE COUNT 2.88 K/ L 1.18-3.74 (BEAKER) (test code = 414) MONOCYTES ABSOLUTE COUNT (BEAKER) 0.95 K/ L 0.24-0.36 H (test code = 415) EOSINOPHILS ABSOLUTE COUNT 0.30 K/ L 0.04-0.36 (BEAKER) (test code = 416) BASOPHILS ABSOLUTE COUNT (BEAKER) 0.06 K/ L 0.01-0.08 (test code = 417) IMMATURE GRANULOCYTES-RELATIVE 0.60 % 0.00-1.00 PERCENT (BEAKER) (test code = 2801) XR CHEST 2 VIEW *OW*2022-09-18 01:15:09 [facility] : 1975 Sex: FChest, [place] and La teralLocation Code Z91Sjnfaqs: Influenza-like illnessFindings: There are no infiltrates. There are no pleural effusions. There is no pneumothorax. Cardiac silhouette and mediastinum appear within normal limits. Impression: No active pulmonary findings.Electronically signed by: Cory Pastor MD 09/18/2022 1:15 AM [facility] -Uy[facility] (RAPID ANTIGEN) WH2022-09-18 00:58:00 Test Item Value Reference Range Interpretation Comments SARS-CoV (ANTIGEN) POSITIVE NEGATIVE AA (test code = COVAG) COVID AG (test This test has been code = COVAGC) marketed under the FDA Emergency Use Authorization (EUA) to meet challenges of the COVID-19 pandemic. The validation standards normally enforced by the FDA and the [employer] of the [place] [employer] (CAP) are more stringent than those required for this test. Therefore, the result should be interpreted with caution and close attention to other clinical and epidemiological data INFLUENZA A AND B OW2022-09-18 00:54:00 Test Item Value Reference Range Interpretation Comments INFLUENZ A (test code = INFA) NEGATIVE NEGATIVE INFLUENZ B (test code = INFB) NEGATIVE NEGATIVE MR, ABDOMEN, [id number] 07:25:00REFERRING : DI COTTON MD....[id number] Reason for Exam - Click Yes and Enter Reason Below->YesUnlisted Reason for Exam->[facility] : 1975 Sex: FFINAL REPORT MRI of the abdomen with and without contrast Clinical History: Unlisted Reason for ExamHCC Technique: Multiplanar and multisequence MR images of the abdomen are obtainedbefore and after intravenous contrast administration. Contrast is administered to evaluate neoplasm and vasculature. Comparison: May 02, 2022, November 29, 2021 Discussion: Patient status post left hepatectomy. Left lobe is hypertrophied. A seroma in the resection bed has decreased in size, and no measures 6.2 x 4 x 4.2 cm. In the medial left lobe near the dome and the resection margin, there is interval development of a 1 cm nodule that demonstrates mild enhancement in the arterial phase (arterialphase image 90), with subsequent washout and pseudocapsule, concerning for recurrent HCC (LI-RADS 5). Subtle deficient restriction is also noted. No biliary ductal dilatation. Gallbladder is absent. Hepatic vasculature is patent. Main portal vein measures 11 mm in diameter. Spleen is mildly enlarged. Pancreas, adrenal glands are normal. Kidneys demonstrate no mass or hydronephrosis. No significant ascites. Previously seen mildly enlarged right diaphragmatic lymph node is stable or slightly smaller. No new lymphadenopathy. No suspicious bony lesion is identified. Visualized bowel is unremarkable. Impression: Status post right hepatectomy. There is interval development of a 1 cm nodule at the resection margin as described, concerning for recurrent HCC, LI-RADS 5. Smaller seroma in the resection bed. Signed: Daija, Michaela MDReport Verified Date/Time: 09/05/2022 07:25:01 CT, CHEST, WITH [id number] 14:45:00REFERRING : DI COTTON MD....[id number] Reason for Exam - Click Yes and Enter Reason Below->Y esUnlisted Reason for Exam->[facility] : 1975 Sex: FFINAL REPORT CT OF THE CHEST WITH CONTRAST HISTORY: Hepatocellular carcinoma COMPARISON: CT chest of 05/23/2022 TECHNIQUE: CT of the chest was performed with intravenous contrast. Axial images were generated as were multiplanar reformatted images in the sagittal and coronal planes. The examination was performed to conform to our departmental dose optimization program which includes automated exposure control, adjustment of the mA and/or kV according to patient size and/or use of iterative reconstruction techniques. FINDINGS: Mild chronic linear scarring in the left lower lobe. Lungs otherwise clear. No evidence of pulmonary metastatic disease. No axillary, mediastinal, or hilar lymphadenopathy. The heart, thoracic aorta, and pulmonary arteries are normal in caliber. No pleural or pericardial effusion. There are degenerative changes in the spine. No fracture or destructive bone lesion are identified. Prior partial right hepatectomy. Fluid collection at the surgical margin has de creased in size since the prior study. The abdomen is assessed on a dedicated abdominal MRI of the same date. IMPRESSION: 1. No evidence of metastatic disease in the chest. No CT evidence of acute cardiopulmonary disease. Signed: Piyush Alvarezeport Verified Date/Time: 09/01/2022 14:45:00 BONE AND/OR JOINT IMAGING, WHOLE BODY 2022-08-30 16:36:00REFERRING : DI COTTON MD....[id number] Reason for Exam - Click Yes and Enter Reason Below->YesUnlisted Reason for Exam->[facility] : 1975 Sex: FFINAL REPORT PROCEDURE: BONE SCAN, WHOLE BODY CPT CODE: 06789 INDICATION: Hepatocellular carcinoma PROTOCOL: 22 mCi of Tc-99m MDP was injected intravenously. Whole body and selected spot images were obtained approximately 3 hours later. Comparison: Bone scan December 26, 2021.Correlation: CT chest May 23, [address] abdomen February 08, 2022. FINDINGS:Scattered uptake within the spine and pelvis in a pattern most compatible with degenerative changes. Relatively stable mild focal increased activity about the lateral aspect of left clavicle, appears to correlate to deformity of the clavicle. Slightly more prominent uptake about the sacrum/sacroiliac joints with no definite correlateon recent CT. Relatively normal pattern of uptake within the kidneys and soft tissue. IMPRESSION: Noscintigraphic findings to suggest an active osseous metastasis. Nonspecific slightly more prominent uptake about the sacrum and sacroiliac joints, degenerative/inflammatory etiology? Signed: Rashaun Bustos MDReport Verified Date/Time: 08/30/2022 16:36:14 CT, CHEST, WITH [id number] 15:43:00 REFERRING : DI COTTON MD....[id number] Reason for Exam - Click Yes and Enter Reason Below->YesUnlisted Reason for Exam->Hepatocellular carcinoma (HCCode) (HCC)[facility] : 1975 Sex: FFINAL REPORT CT of the Chest dated 05/27/2022 COMPARISON: December 26, 2021 CLINICAL INFORMATION: Unlisted Reason for ExamHepatocellular carcinoma (HCCode) (HCC) Comment: Axial images ofthe chest were obtained from thoracic inlet to the upper abdomen with intravenous contrast. This exam was performed according to our departmental dose-optimization program, which includes automated exposure control, adjustment of the mA and/or kV according to patient size and/or use of interactive reconstruction technique. Heart is normal in size. Great vessels are unremarkable. No adenopathy in the mediastinum or perihilar region. Trachea and mainstem bronchi are patent. Subsegmental atelectasis isseen in the left lower lobe. The rest of the lungs are clear. No nodular, mass lesion or airspace dis ease is noted. No interstitial disease or bronchiectasis is present. No pleural effusion or pleural based mass seen. Visualized upper abdomen demonstrates post right hepatectomy changes. A 6.6 x 10.4 cm fluid is seen at the surgical margin Impression:1. Left lower lobe subsegmental atelectasis.2. No metastatic disease in the chest. Signed: Noel Hdez MDReport Verified Date/Time: 05/27/2022 15:43:25 AFP TUMOR [id number] 12:01:41 Test Item Value Reference Range Interpretation Comments AFP-TUMOR MARKER See_Comment Unless Oth erwise (test code = Indicated, All Testing 20997-4) Performed At: linical Pathology [facility], [address] [place] [id number] [place] [address] Director: Pepper Basurto M.D. CLIA Number [id number] [employer] Accreditation N o. [id number] [Autom ated message] The sy stem which generated this result transmit kylie reference range : <=8.30 NG/ML. The refe rence range was not u sed to interpret this result as normal/abnormal . THAI (test code = PT FASTING THAI) [facility]PRE[facility]ABOL[facility] [id number] 11:11:44 Test Item Value Reference Range Interpretation Comments GLUCOSE (test code = See_Comment H [Autom ated message] 2345-7) The system [employer] generated this result transmitted ref erence range: 70 - 99 MG/DL. The reference r kilo was not used to interpret this result as normal/abnor mal. BLOOD UREA NITROGEN See_Comment H [Automa kylie message] (test code = 3091-6) The sys tem which generated this result transmitted ref erence range: 6 - 20 M G/DL. The reference r kilo was not used to interpret this result as normal/abnor mal. CREATININE (test code See_Comment [Auto mated message] = 2160-0) The system [employer] generated this result transmitted ref erence range: 0.60 - 1 .30 MG/DL. The refe rence range was not u sed to interpret this result as normal/abnor mal. EGFR (test code = See_Comment L [Automate d message] 31550-2) The system [employer] generated this result transmitted ref erence range: >60 ML/MIN/1.73. Th e reference range was not used to int erpret this result as normal/abnormal . BUN/CREAT RATIO (test See_Comment [Auto mated message] code = 3097-3) The system [facility] generated this result transmitted ref erence range: 6 - 28 R ATIO. The reference r kilo was not used to interpret this result as normal/abnor mal. SODIUM (test code = See_Comment [Automa kylie message] 2951-2) The system [facility] generated this result transmitted ref erence range: 133 - 14 6 MEQ/L. The refe rence range was not u sed to interpret this result as normal/abnor mal. POTASSIUM (test code = See_Comment [Aut omated message] 6953-3) The system [facility] generated this result transmitted ref erence range: 3.5 - 5. 4 MEQ/L. The refe rence range was not u sed to interpret this result as normal/abnor mal. CHLORIDE (test code = See_Comment [Auto mated message] 8555-0) The system [facility] generated this result transmitted ref erence range: 95 - 107 MEQ/L. The refe rence range was not u sed to interpret this result as normal/abnor mal. CO2 (test code = See_Comment [Automated message] 1963-8) The system [facility] generated this result transmitted ref erence range: 19 - 31 MEQ/L. The reference r kilo was not used to interpret this result as normal/abnor mal. CALCIUM (test code = See_Comment [Autom ated message] 97863-9) The system [facility] generated this result transmitted ref erence range: 8.5 - 10 .5 MG/DL. The refe rence range was not u sed to interpret this result as normal/abnor mal. PROTEIN TOTAL (test See_Comment [Automa kylie message] code = 2885-2) The system [facility] generated this result transmitted ref erence range: 6.1 - 8. 3 G/DL. The refer ence range was not u sed to interpret this result as normal/abnor mal. ALBUMIN (test code = See_Comment [Autom ated message] 20471-7) The system [facility] generated this result transmitted ref erence range: 3.5 - 5. 2 G/DL. The refer ence range was not u sed to interpret this result as normal/abnor mal. GLOBULINS, SERUM, See_Comment H [Automate d message] TOTAL (test code = The syste m which 49706-1) generated this result transmitted ref erence range: 1.9 - 3. 7 G/DL. The refer ence range was not u sed to interpret this result as normal/abnor mal. A/G RATIO (test code = See_Comment [Aut omated message] 1759-0) The system [employer] generated this result transmitted ref erence range: 1.0 - 2. 6 RATIO. The refe rence range was not u sed to interpret this result as normal/abnor mal. BILIRUBIN TOTAL (test See_Comment [Auto mated message] code = 1975-2) The system [facility] generated this result transmitted ref erence range: <=1.2 MG /DL. The reference r kilo was not used to interpret this result as normal/abnor mal. ALKALINE PHOSPHATASE 140 U/L 40-116 H (test code = 6768-6) AST (SGOT) (test code 38 U/L 9-40 = 1920-8) ALT (SGPT) (test code 22 U/L 5-40 Unles s Otherwise = 1744-2) Indicated, All Testing Perform ed At: [facility], [address] [place] [id number] Laborator y Director: Pepper Basurto M.D. CLIA Number [id number] [place]. [id number] THAI (test code = THAI) PT FASTING Lab Interpretation Abnormal (test code = 36698-6) [facility] W/AUTO DIFF WITH [id number] 07:35:16 Test Item Value Reference Range Interpretation Comments WHITE BLOOD CELL COUNT See_Comment [Aut omated message] (test code = 59284-3) The sy stem which generated this result transmit kylie reference range : 3.5 - 11.0 K/UL. Th e reference range was not used to interpret this result as normal/abnormal . RED BLOOD CELL COUNT See_Comment [Autom ated message] (test code = 29510-2) The sy stem which generated this result transmit kylie reference range : 3.80 - 5.40 M/U L. The reference r kilo was not used to interpret this result as normal/abnormal . HEMOGLOBIN (test code = See_Comment L [Au tomated message] 718-7) The system [employer] generated this result transmit kylie reference range : 11.5 - 15.5 G/D L. The reference r kilo was not used to interpret this result as normal/abnormal . HEMATOCRIT (test code = 32.3 % 34-45 L 52381-6) MEAN CORPUSCULAR VOLUME 78.4 fL 80-99 L (test code = 76133-3) MEAN CORPUSCULAR 24.8 PG 25-33 L HEMOGLOBIN (test code = 75253-2) MEAN CORPUSCULAR See_Comment [Automated message] HEMOGLOBIN CONC (test The sy stem which code = 81996-7) generated th is result transmit kylie reference range : 31.0 - 36.0 G/D L. The reference r kilo was not used to interpret this result as normal/abnormal . RED CELL DISTRIBUTION 16.7 % 11.5-15 H WIDTH (test code = 51075-1) NEUTROPHILS % (test 54.6 % code = 14014-0) LYMPHOCYTES % (test 33.9 % code = 47095-8) MONOCYTES % (test code 8.5 % = 05046-5) EOSINOPHILS % (test 2.2 % code = 96330-6) BASOPHILS % (test code 0.5 % = 79087-6) IMMATURE GRANULOCYTES 0.3 % (test code = 65877-4) NUCLEATED RBC'S See_Comment Unless Othe rwise MYELOPEROX STAIN (test Indic ated, All code = 65934-0) Testing Perf ormed At: [facility], [address] [place] [address] Laborator y Director: Pepper Basurto M.D. CLIA Number [id number] [place] [id number] [Automated mess age] The system whic h generated this result transmit kylie reference range : 0.00 - 0.11 K/U L. The reference r kilo was not used to interpret this result as normal/abnormal . PLATELET COUNT (test See_Comment H [Autom ated message] code = 88611-2) The system [facility] generated this result transmit kylie reference range : 130 - 400 K/UL. The reference range was not used to interpret this result as normal/abnormal . NEUTROPHILS ABSOLUTE See_Comment [Autom ated message] COUNT (test code = The syste m which 91897-9) generated this result transmit kylie reference range : 1.50 - 7.50 K/U L. The reference r kilo was not used to interpret this result as normal/abnormal . LYMPHOCYTES ABSOLUTE See_Comment [Autom ated message] COUNT (test code = The syste m which 86897-5) generated this result transmit kylie reference range : 1.00 - 4.00 K/U L. The reference r kilo was not used to interpret this result as normal/abnormal . MONOCYTES ABSOLUTE See_Comment [Automat ed message] COUNT (test code = The syste m which 70106-8) generated this result transmit kylie reference range : 0.20 - 1.00 K/U L. The reference r kilo was not used to interpret this result as normal/abnormal . BASOPHILS ABSOLUTE See_Comment [Automat ed message] COUNT (test code = The syste m which 52091-7) generated this result transmit kylie reference range : 0.00 - 0.20 K/U L. The reference r kilo was not used to interpret this result as normal/abnormal . IMMATURE GRANS (ABS) See_Comment [Autom ated message] (test code = 9987) The syste m which generated this result transmit kylie reference range : 0.00 - 0.10 K/U L. The reference r kilo was not used to interpret this result as normal/abnormal . THAI (test code = THAI) PT FASTING Lab Interpretation Abnormal (test code = 99405-8) [facility] [id number] 11:25:00REFERRING : DI COTTON MD....[id number] Abdominal VesselsUnlisted Reason for Exam - Click Yes and Enter Reason Below->No [facility]SY[facility]BY MCLEAN : 1975 Sex: FFINAL REPORT MRI of the abdomen with and without contrast Clinical History: Liverlesion, > 1cm, US nondiagnostic Technique: Multiplanar and multisequence MR images of the abdomenare obtained before and after intravenous contrast administration. Contrast is administered to evaluate neoplasm and vasculature. Comparison: CT dated February 08, 2022, January 17, 2022, MRI dated November 29, 2021 and August 28, 2021 Discussion: Patient is status post right hepatectomy. A seroma in the resection bed measures approximately 12.2 x 7.4 x 7.4 cm, not significantly changed compared to 2021. The left hepatic lobe is hypertrophied. No residual/recurrent disease or new mass lesion is identified. Hepatic vasculature is patent. Main portal vein measures 11 mm in diameter. Spleen is mildly enlarged, and measures 13 cm sagittally. The pancreas, adrenal glands are normal. Kidneys demonstrate no mass, or hydronephrosis. Visualized bowel is unremarkable. No ascites. A right diaphragmatic lymph node is mildly enlarged, measuring 1.4 x 1.1 cm, new since November 29, 2021. No suspicious bony lesion. Impression: Status post right hepatectomy. Stable seroma in the resection bed. No residual/recurrent or new liver mass is identified. There is a mildly enlarged right diaphragmatic lymph node, suggest attention on follow-up imaging. Signed: Michaela Choe Verified Date/Time: 05/11/2022 11:25:26 BLOOD [id number] 00:01:11 Test Item Value Reference Range Interpretation Comments CULTURE (BEAKER) (test No growth in 5 days code = 1095) BLOOD [id number] 23:00:55 Test Item Value Reference Range Interpretation Comments CULTURE (BEAKER) (test No growth in 5 days code = 1095) CT, [id number] 02:50:00REFERRING : DI COTTON MD....[id number] for exam:->POST-OP PROBLEMReason for exam:->ABDOMINAL PAINIs the patient ?->UnknownWhat is the patient's sedation requirement?->No Sedation [facility]OS : 1975 Sex: FFINAL REPORT CT, ABDOMEN \\T\\ PELVIS, WITH IV CONTRAST INDICATION: Abdominal pain,acute, nonlocalizedPOST-OP PROBLEMABDOMINAL PAIN COMPARISON: CT abdomen pelvis dated 01/17/2022 TECHNIQUE:Post contrast abdomen and pelvis CT. Coronal and sagittal reformatted images obtained. DOSE REDUCTION: Dose modulation, iterative reconstruction, and/or weight-based adjustment of the mA/kV was utilized to reduce the radiation dose to as low as reasonably achievable. FINDINGS: Lower thorax: Discoidatelectasis in the bilateral lower lobes. No pleural effusion. The heart is normal in size. No pericardial effusion. Liver: Surgical changes of a right hepatectomy. Interval decrease in size of the loculated fluid collection in the surgical bed now measuring 12.5 x 6.4 cm, previously 16.9 x 11.5 cm when measured similarly.Gallbladder and biliary tree: The gallbladder is surgically absent. No ductal di latation.Pancreas: No acute findings.Spleen: No acute findingsAdrenal Glands: No acute findings.Kidneys and ureters: No hydronephrosis or nephrolithiasis.Bladder and reproductive organs: Uterus is surgically absent. No suspicious adnexal lesions. Urinary bladder is unremarkable. Stomach and Duodenum: No significant findings.Small and large intestine: Normal calibers.Appendix: Normal. Major vascular structures: Normal aortic caliber.Peritoneum and retroperitoneum: No free air or adenopathy. Decrease now trace volume intra-abdominal ascites. Skeleton: No acute bony abnormality.Additional findings: Mild anasarca. Fat- containing umbilical and right inguinal hernias. Scarring over the ventral abdomen. No drainable fluid collection. IMPRESSION: Interval decrease in size of the loculated fluid collection in the right hepatectomy postsurgical bed. Signed: Amber Cho MDReport Verified Date/Time:02/08/2022 02:50:39 Urinalysis w/Microscopic + Reflex to [id number] 02:04:32 Test Item Value Reference Range Interpretation Comments Color, UA (test code Yellow = 5778-6) Clarity, UA (test Clear code = 5767-9) Specific [place], UA 1.015 1.001-1.035 (test code = 5811-5) pH, UA (test code = 6.5 5.0-8.0 5803-2) Protein, UA (test 10 mg/dL Negative A code = 87173-7) Glucose, UA (test Negative Negative code = 365) Ketones, UA (test Negative Negative code = 2514-8) Bilirubin, UA (test Negative Negative code = 89259-6) Blood, UA (test code Negative Negative = 84286-6) Nitrite, UA (test Negative Negative code = 5802-4) Leukocytes, UA (test Negative Negative code = 5799-2) Urobilinogen, UA 0.2 mg/dL 0.2-1.0 (test code = 35070-6) RBC, UA (test code = <1 See_Comment [Autom ated 91362-0) message] The system which generated this result transmitted reference range : /HPF. The reference range was not used to interpret this result as normal/abnormal . WBC, UA (test code = 1 See_Comment [Autom ated 5821-4) message] The system which generated this result transmitted reference range : /HPF. The reference range was not used to interpret this result as normal/abnormal . Bacteria, UA (test None Seen code = 44510-8) Squam Epithel, UA 6 See_Comment [Automate d (test code = message] The 37278-9) system which generated this result transmitted reference range : /HPF. The reference range was not used to interpret this result as normal/abnormal . Hyaline Casts, UA 3 See_Comment [Automate d (test code = message] The 78781-8) system which generated this result transmitted reference range : /LPF. The reference range was not used to interpret this result as normal/abnormal . Crystals, Urine None Seen (test code = 05876-6) Specimen Source (test code = 2795) THAI (test code = Car Oiler ID - THAI) [auto]Car Oiler ID - [auto]Car Oiler ID - techOperator ID - tech Lab Interpretation Abnormal (test code = 73386-7) [facility] [id number] 02:04:32 Test Item Value Reference Range Interpretation Comments COLOR (BEAKER) (test code = 470) Yellow CLARITY (BEAKER) (test code = 469) Clear SPECIFIC GRAVITY UA (BEAKER) (test 1.015 1.001-1.035 code = 468) PH UA (BEAKER) (test code = 467) 6.5 5.0-8.0 PROTEIN UA (BEAKER) (test code = 10 mg/dL Negative A 464) GLUCOSE UA (BEAKER) (test code = Negative Negative 365) KETONES UA (BEAKER) (test code = Negative Negative 371) BILIRUBIN UA (BEAKER) (test code = Negative Negative 462) BLOOD UA (BEAKER) (test code = 461) Negative Negative NITRITE UA (BEAKER) (test code = Negative Negative 465) LEUKOCYTE ESTERASE UA (BEAKER) Negative Negative (test code = 466) UROBILINOGEN UA (BEAKER) (test code 0.2 mg/dL 0.2-1.0 = 463) RBC UA (BEAKER) (test code = 519) < /HPF WBC UA (BEAKER) (test code = 520) 1 /HPF BACTERIA (BEAKER) (test code = 517) None Seen SQUAMOUS EPITHELIAL (BEAKER) (test 6 /HPF code = 516) HYALINE CASTS (BEAKER) (test code = 3 /LPF 514) CRYSTALS, URINE (BEAKER) (test code None Seen = 1521) SOURCE(BEAKER) (test code = 2795) Car Oiler ID - [auto]Car Oiler ID - [auto]Car Oiler ID - techOperator ID - tech Screen, [id number] 01:51:18 Test Item Value Reference Range Interpretation Comments Preg Test, Ur (test code = 2112-1) Negative [facility]PREGNANCY SCREEN, [id number] 01:51:18 Test Item Value Reference Range Interpretation Comments TEST URINE (BEAKER) (test Negative code = 583) SARS-CoV2/Influenza/RSV RT-PCR (Symptomatic ONLY)2022-02-07 23:40:07 Test Item Value Reference Interpretation Comments Range SARS-COV2/RT-PCR Negative Negative The SARS-Co V-2 (test code = target nucleic 33054-3) acids are not detected in thi s specimen. Negat abhishek results do not preclude SARS-C oV-2 infection and should not be u sed as the sole bas is for patient management decisions. Nega tive results must be combined with clinical observations, patient history , and epidemiolog ical information. A false negative result may occu r if a specimen is improperly collected, transported or handled. This S ARS CoV-2 test is a rapid, real-mauri e RT-PCR test intended for e qualitative detection of nucleic acid fr om SARS-CoV-2 in a nasopharyngeal swab specimen collec kylie from individual s suspected of COVID-19 by the healthcare provider. Influenza A RT-PCR Negative Negative The Flu A target (test code = [place] [address]-2) not detected in this specimen. Influenza B RT-PCR Negative Negative The Flu B target (test code = [place] 67991-0) not detected in this specimen. RSV by RT-PCR (test Negative Negative The RSV target code = 21054-7) nucleic acid s are not detected in this specimen. THAI (test code = The presence of THAI) SARS-CoV-2/FLU/RSV viral nucleic acids cannot rule out co-infections or disease caused by other viral or bacterial pathogens. As with any molecular test, mutations within the target regions of the Xpert Xpress SARS-CoV-2/Flu/RSV test could affect primer and/or probe binding resulting in failure to detect the presence of virus or the virus being detected less predictably. False negative results may occur if the virus is present at levels below the analytical limit of detection in this specimen. This Xpert Xpress SARS-CoV-2/Flu/RSV test is a rapid, real-time RT-PCR test intended for the qualitative detection of nucleic acid from Xpert Xpress SARS-CoV-2/Flu/RSV in a nasopharyngeal swab specimen collected from individuals suspected of Xpert Xpress SARS-CoV-2/Flu/RSV by their healthcare provider. Results from [facility] Xpert Xpress SARS-CoV-2/Flu/RSV test should be correlated with the clinical history, epidemiological data, and other data available to the clinician evaluating the patient. Viral nucleic acid may persist in vivo, independent of virus viability. Detection of analyte target(s) does not imply that the corresponding virus(es) are infectious or are the causative agents for clinical symptoms. This test has not been Food and Drug Administration (FDA) cleared or approved and has been authorized by FDA under an Emergency Use Authorization (EUA). This EUA will be effective until the declaration that circumstances exist justifying the authorization of the emergency use of in vitro diagnostic tests for detection and/or diagnosis of COVID-19 is terminated under Section 564(b)(2) of the Act or the EUA is revoked under Section 564(g) of the Act. Fact Sheet for Healthcare Providers:https://w [employer]/Docu ments/Xpert%20Xpres s%20SARS%20CoV-2/Fa ct%20Sheets/302-390 2%10GTKP-BWB-3%20HE ALTHCARE%20PROVIDER S%20FACT%20SHEET.pd f Fact Sheet for Healthcare Patients:https://[employer]/Docum ents/Xpert%20Xpress %20SARS%20Cov-2/Fac t%20Sheets/302-3801 %73MBCY-RKJ-7%20PAT IENT%20FACT%20SHEET .pdf Lab Interpretation Normal (test code = 68227-7) [facility]V [id number] 23:40:07 Test Item Value Reference Range Interpretation Comments SARS-COV2/RT-PCR Negative Negative The SARS-Co V-2 target (test code = nucleic acids a re not 3291025) detected in thi s specimen. Negat abhishek results do not preclude SARS-CoV-2 infe ction and should not be u sed as the sole basis for patient management deci sions. Negative result s must be combined with c linical observations, p atient history, and epidemiological information. A false negative result may occur if a specimen i s improperly isabelle ected, transported or handled. This SARS CoV-2 test is a rapid, real-mauri e RT-PCR test intended f or the qualitative det ection of nucleic acid fr om SARS-CoV-2 in a nasopharyngeal swab specimen colle kylie from individuals adelso pected of COVID-19 by the [facility]. INFLUENZA A RT-PCR Negative Negative The Flu A target nucleic (test code = acids are not d etected in 19101116) this specimen. INFLUENZA B RT-PCR Negative Negative The Flu B target nucleic (test code = acids are not d etected in 19101117) this specimen. RSV RT-PCR (test Negative Negative The RSV tar get nucleic code = 5148545) acids are no t detected in this specimen. The presence of SARS-CoV-2/FLU/RSV viral nucleic acids cannot rule out co- infections or disease caused by other viral or bacterial pathogens. As with any molecular test, mutations within the target regions of the Xpert Xpress SARS-CoV-2/Flu/RSV test could affect primer and/or probe binding resulting in failure to detect the presence of virus or the virus being detected less predictably. False negative results may occur if the virus is present at levels below the analytical limit of detection in thisspecimen.This Xpert Xpress SARS-CoV-2/Flu/RSV test is a rapid, real-time RT-PCR test intended for the qualitative detection of nucleic acid from Xpert Xpress SARS-CoV-2/Flu/RSV in a nasopharyngeal swabspecimen collected from individuals suspected of Xpert Xpress SARS-CoV-2/Flu/RSV by their healthcareprovider. Results from [facility] Xpert Xpress SARS-CoV-2/Flu/RSV test should be correlated with the clinical history, epidemiological data, and other data available to the clinician evaluating the patient. Viral nucleic acid may persist in vivo, independent of virus viability. Detection of analyte target(s)does not imply that the corresponding virus(es) are infectious or are the causative agents for clinical symptoms.This test has not been Food and Drug Administration (FDA) cleared or approved and has been authorized by FDA under an Emergency Use Authorization (EUA). This EUA will be effective until thedeclaration that circumstances exist justifying the authorization of the emergency use of in vitro diagnostic tests for detection and/or diagnosis of COVID-19 is terminated under Section 564(b)(2) of the Act or the EUA is revoked under Section 564(g) of the Act.Fact Sheet for Healthcare Providers:https ://www.[employer]/Documents/Xpert%20Xpress%20SARS%20CoV-2/Fact%20Sheets/302-390 2%43EYZI-HKL-5%20HEALTHCARE%20PROVIDERS%20FACT%20SHEET.pdfFact Sheet for Healthcare Patients:https://www.[employer]/Docum ents/Xpert%20Xpress%20SARS%20Cov-2/Fact%20Sheets/302-3801%10IXFX-TYV-7%20PATIENT %20FACT%20SHEET.pdfCOMPREHENSIVE METABOLIC [id number] 22:29:02 Test Item Value Reference Range Interpretation Comments TOTAL PROTEIN 9.0 gm/dL 6.0-8.3 H Specimen sligh tly (BEAKER) (test code = hemoly zed 770) ALBUMIN (BEAKER) 3.7 g/dL 3.5-5.0 Specimen sl ightly (test code = 1145) hemolyzed ALKALINE PHOSPHATASE 145 U/L 40-150 (BEAKER) (test code = 346) BILIRUBIN TOTAL 0.9 mg/dL 0.2-1.2 Specimen sli ghtly (BEAKER) (test code = hemoly zed 377) SODIUM (BEAKER) (test 136 meq/L 136-145 code = 381) POTASSIUM (BEAKER) 4.5 meq/L 3.5-5.1 Specimen slightly (test code = 379) hemolyzed CHLORIDE (BEAKER) 101 meq/L 98-107 (test code = 382) CO2 (BEAKER) (test 25 meq/L 22-29 code = 355) BLOOD UREA NITROGEN 14 mg/dL 7-21 (BEAKER) (test code = 354) CREATININE (BEAKER) 1.04 mg/dL 0.57-1.25 Specimen slightly (test code = 358) hemolyzed GLUCOSE RANDOM 137 mg/dL 70-105 H (BEAKER) (test code = 652) CALCIUM (BEAKER) 10.0 mg/dL 8.4-10.2 (test code = 697) AST (SGOT) (BEAKER) 51 U/L 5-34 H Specimen slightly (test code = 353) hemolyzed ALT (SGPT) (BEAKER) 19 U/L 6-55 Specimen slightly (test code = 347) hemolyzed EGFR (BEAKER) (test 70 mL/min/1.73 ESTIMA KYLIE GFR IS code = 1092) sq m NOT ACCURATE CREATININE CLEARANCE IN PREDICTING GLOMERULAR FILTRATION RATE . ESTIMATED GFR I S NOT APPLICABLE FOR DIALYSIS PATIEN TS. Car Oiler ID - DBLACTIC ACID, [id number] 22:24:45 Test Item Value Reference Range Interpretation Comments LACTATE BLOOD VENOUS 1.83 mmol/L 0.50-2.20 Specime n slightly (2) (BEAKER) (test hemolyzed code = 6492) Car Oiler ID - [id number] 22:15:45 Test Item Value Reference Range Interpretation Comments PARTIAL THROMBOPLASTIN TIME 29.7 seconds 22.5-36.0 (BEAKER) (test code = 760) PROTHROMBIN TIME/[id number] 22:15:02 Test Item Value Reference Range Interpretation Comments PROTIME (BEAKER) 16.5 seconds 11.9-14.2 H (test code = 759) INR (BEAKER) (test 1.35 See_Comment [Automat ed message] code = 370) The system [employer] generated this result transmitted ref erence range: <=5.90. The reference range was not used to int erpret this result as normal/abnormal . RECOMMENDED COUMADIN/WARFARIN INR THERAPY RANGESSTANDARD DOSE: 2.0 - 3.0 Includes: PROPHYLAXIS for venous thrombosis, systemic embolization; TREATMENT for venous thrombosis and/or pulmonary embolus.HIGH RISK: Target INR is 2.5-3.5 for patients with mechanical heart valves.CBC W/PLT COUNT & AUTO [id number] 22:08:48 Test Item Value Reference Range Interpretation Comments WHITE BLOOD CELL COUNT (BEAKER) 12.1 K/ L 3.5-10.5 H (test code = 775) RED BLOOD CELL COUNT (BEAKER) 3.99 M/ L 3.93-5.22 (test code = 761) HEMOGLOBIN (BEAKER) (test code = 9.4 GM/DL 11.2-15.7 L 410) HEMATOCRIT (BEAKER) (test code = 33.1 % 34.1-44.9 L 411) MEAN CORPUSCULAR VOLUME (BEAKER) 83.0 fL 79.4-94.8 (test code = 753) MEAN CORPUSCULAR HEMOGLOBIN 23.6 pg 25.6-32.2 L (BEAKER) (test code = 751) MEAN CORPUSCULAR HEMOGLOBIN CONC 28.4 GM/DL 32.2-35.5 L (BEAKER) (test code = 752) RED CELL DISTRIBUTION WIDTH 18.6 % 11.7-14.4 H (BEAKER) (test code = 412) PLATELET COUNT (BEAKER) (test 498 K/CU MM 150-450 H code = 756) MEAN PLATELET VOLUME (BEAKER) 8.3 fL 9.4-12.3 L (test code = 754) NUCLEATED RED BLOOD CELLS 0 /100 WBC 0-0 (BEAKER) (test code = 413) NEUTROPHILS RELATIVE PERCENT 59 % (BEAKER) (test code = 429) LYMPHOCYTES RELATIVE PERCENT 25 % (BEAKER) (test code = 430) MONOCYTES RELATIVE PERCENT 11 % (BEAKER) (test code = 431) EOSINOPHILS RELATIVE PERCENT 4 % (BEAKER) (test code = 432) BASOPHILS RELATIVE PERCENT 1 % (BEAKER) (test code = 437) NEUTROPHILS ABSOLUTE COUNT 7.16 K/ L 1.56-6.13 H (BEAKER) (test code = 670) LYMPHOCYTES ABSOLUTE COUNT 2.99 K/ L 1.18-3.74 (BEAKER) (test code = 414) MONOCYTES ABSOLUTE COUNT (BEAKER) 1.37 K/ L 0.24-0.36 H (test code = 415) EOSINOPHILS ABSOLUTE COUNT 0.50 K/ L 0.04-0.36 H (BEAKER) (test code = 416) BASOPHILS ABSOLUTE COUNT (BEAKER) 0.06 K/ L 0.01-0.08 (test code = 417) IMMATURE GRANULOCYTES-RELATIVE 0 % 0-1 PERCENT (BEAKER) (test code = 2801) URINALYSIS W/ REFLEX URINE [id number] 14:59:27 Test Item Value Reference Range Interpretation Comments COLOR (BEAKER) (test code = 470) Yellow CLARITY (BEAKER) (test code = 469) Clear SPECIFIC GRAVITY UA (BEAKER) (test 1.018 1.001-1.035 code = 468) PH UA (BEAKER) (test code = 467) 5.0 5.0-8.0 PROTEIN UA (BEAKER) (test code = Negative Negative 464) GLUCOSE UA (BEAKER) (test code = Negative Negative 365) KETONES UA (BEAKER) (test code = Negative Negative 371) BILIRUBIN UA (BEAKER) (test code = Negative Negative 462) BLOOD UA (BEAKER) (test code = 461) Negative Negative NITRITE UA (BEAKER) (test code = Negative Negative 465) LEUKOCYTE ESTERASE UA (BEAKER) Negative Negative (test code = 466) UROBILINOGEN UA (BEAKER) (test code 0.2 mg/dL 0.2-1.0 = 463) RBC UA (BEAKER) (test code = 519) < /HPF WBC UA (BEAKER) (test code = 520) 1 /HPF BACTERIA (BEAKER) (test code = 517) None Seen SQUAMOUS EPITHELIAL (BEAKER) (test 3 /HPF code = 516) HYALINE CASTS (BEAKER) (test code = 3 /LPF 514) CRYSTALS, URINE (BEAKER) (test code None Seen = 1521) SOURCE(BEAKER) (test code = 2795) Car Oiler ID - [auto]Car Oiler ID - techHEPATIC FUNCTION [id number] 13:45:28 Test Item Value Reference Range Interpretation Comments TOTAL PROTEIN (BEAKER) (test code = 9.2 gm/dL 6.0-8.3 H 770) ALBUMIN (BEAKER) (test code = 1145) 3.9 g/dL 3.5-5.0 BILIRUBIN TOTAL (BEAKER) (test code 0.9 mg/dL 0.2-1.2 = 377) BILIRUBIN DIRECT (BEAKER) (test 0.7 mg/dL 0.1-0.5 H code = 706) ALKALINE PHOSPHATASE (BEAKER) (test 153 U/L 40-150 H code = 346) AST (SGOT) (BEAKER) (test code = 50 U/L 5-34 H 353) ALT (SGPT) (BEAKER) (test code = 20 U/L 6-55 347) Car Oiler ID - BSGAMMA GLUTAMYL TRANSFERASE (GGT)2022-02-07 13:45:28 Test Item Value Reference Range Interpretation Comments GAMMA GLUTAMYL TRANSFERASE (BEAKER) 261 U/L 9-64 H (test code = 364) Car Oiler ID - BSBASIC METABOLIC [id number] 13:45:27 Test Item Value Reference Range Interpretation Comments SODIUM (BEAKER) 134 meq/L 136-145 L (test code = 381) POTASSIUM (BEAKER) 4.0 meq/L 3.5-5.1 (test code = 379) CHLORIDE (BEAKER) 99 meq/L 98-107 (test code = 382) CO2 (BEAKER) (test 27 meq/L 22-29 code = 355) BLOOD UREA NITROGEN 11 mg/dL 7-21 (BEAKER) (test code = 354) CREATININE (BEAKER) 0.88 mg/dL 0.57-1.25 (test code = 358) GLUCOSE RANDOM 75 mg/dL 70-105 (BEAKER) (test code = 652) CALCIUM (BEAKER) 9.7 mg/dL 8.4-10.2 (test code = 697) EGFR (BEAKER) (test 85 mL/min/1.73 ESTIMA KYLIE GFR IS code = 1092) sq m NOT ACCURATE CREATININE CLEARANCE IN PREDICTING GLOMERULAR FILTRATION RATE . ESTIMATED GFR I S NOT APPLICABLE FOR DIALYSIS PATIEN TS. Car Oiler ID - [id number] 13:45:27 Test Item Value Reference Range Interpretation Comments MAGNESIUM (BEAKER) (test code = 2.0 mg/dL 1.6-2.6 627) Car Oiler ID - [id number] 13:45:27 Test Item Value Reference Range Interpretation Comments PHOSPHORUS (BEAKER) (test code = 4.3 mg/dL 2.3-4.7 604) Car Oiler ID - BSCBC W/PLT COUNT & AUTO [id number] 13:35:47 Test Item Value Reference Range Interpretation Comments WHITE BLOOD CELL COUNT (BEAKER) 12.8 K/ L 3.5-10.5 H (test code = 775) RED BLOOD CELL COUNT (BEAKER) 3.90 M/ L 3.93-5.22 L (test code = 761) HEMOGLOBIN (BEAKER) (test code = 9.4 GM/DL 11.2-15.7 L 410) HEMATOCRIT (BEAKER) (test code = 32.0 % 34.1-44.9 L 411) MEAN CORPUSCULAR VOLUME (BEAKER) 82.1 fL 79.4-94.8 (test code = 753) MEAN CORPUSCULAR HEMOGLOBIN 24.1 pg 25.6-32.2 L (BEAKER) (test code = 751) MEAN CORPUSCULAR HEMOGLOBIN CONC 29.4 GM/DL 32.2-35.5 L (BEAKER) (test code = 752) RED CELL DISTRIBUTION WIDTH 18.6 % 11.7-14.4 H (BEAKER) (test code = 412) PLATELET COUNT (BEAKER) (test 523 K/CU MM 150-450 H code = 756) MEAN PLATELET VOLUME (BEAKER) 8.4 fL 9.4-12.3 L (test code = 754) NUCLEATED RED BLOOD CELLS 0 /100 WBC 0-0 (BEAKER) (test code = 413) NEUTROPHILS RELATIVE PERCENT 60 % (BEAKER) (test code = 429) LYMPHOCYTES RELATIVE PERCENT 23 % (BEAKER) (test code = 430) MONOCYTES RELATIVE PERCENT 11 % (BEAKER) (test code = 431) EOSINOPHILS RELATIVE PERCENT 5 % (BEAKER) (test code = 432) BASOPHILS RELATIVE PERCENT 1 % (BEAKER) (test code = 437) NEUTROPHILS ABSOLUTE COUNT 7.70 K/ L 1.56-6.13 H (BEAKER) (test code = 670) LYMPHOCYTES ABSOLUTE COUNT 2.97 K/ L 1.18-3.74 (BEAKER) (test code = 414) MONOCYTES ABSOLUTE COUNT (BEAKER) 1.44 K/ L 0.24-0.36 H (test code = 415) EOSINOPHILS ABSOLUTE COUNT 0.58 K/ L 0.04-0.36 H (BEAKER) (test code = 416) BASOPHILS ABSOLUTE COUNT (BEAKER) 0.07 K/ L 0.01-0.08 (test code = 417) IMMATURE GRANULOCYTES-RELATIVE 0 % 0-1 PERCENT (BEAKER) (test code = 2801) PROTHROMBIN TIME/[id number] 13:29:58 Test Item Value Reference Range Interpretation Comments PROTIME (BEAKER) 18.7 seconds 11.9-14.2 H (test code = 759) INR (BEAKER) (test 1.59 See_Comment [Automat ed message] code = 370) The system [employer] generated this result transmitted ref erence range: <=5.90. The reference range was not used to int erpret this result as normal/abnormal . RECOMMENDED COUMADIN/WARFARIN INR THERAPY RANGESSTANDARD DOSE: 2.0 - 3.0 Includes: PROPHYLAXIS for venous thrombosis, systemic embolization; TREATMENT for venous thrombosis and/or pulmonary embolus.HIGH RISK: Target INR is 2.5-3.5 for patients with mechanical heart valves.COMPREHENSIVE METABOLIC PANEL 2022-02-06 03:55:30 Test Item Value Reference Range Interpretation Comments TOTAL PROTEIN 9.0 gm/dL 6.0-8.5 H (BEAKER) (test code = 770) ALBUMIN (BEAKER) 3.9 g/dL 3.5-5.0 (test code = 1145) ALKALINE PHOSPHATASE 128 U/L 30-115 H (BEAKER) (test code = 346) BILIRUBIN TOTAL 1.1 mg/dL 0.1-1.2 (BEAKER) (test code = 377) SODIUM (BEAKER) (test 137 meq/L 135-148 code = 381) POTASSIUM (BEAKER) 4.3 meq/L 3.6-5.5 (test code = 379) CHLORIDE (BEAKER) 101 meq/L 98-106 (test code = 382) CO2 (BEAKER) (test 29 meq/L 20-29 code = 355) BLOOD UREA NITROGEN 12 mg/dL 10-26 (BEAKER) (test code = 354) CREATININE (BEAKER) 1.03 mg/dL 0.50-1.20 (test code = 358) GLUCOSE RANDOM 115 mg/dL 70-110 H (BEAKER) (test code = 652) CALCIUM (BEAKER) 9.8 mg/dL 8.5-10.5 (test code = 697) AST (SGOT) (BEAKER) 62 U/L 5-40 H (test code = 353) ALT (SGPT) (BEAKER) 25 U/L 5-50 (test code = 347) EGFR (BEAKER) (test 71 mL/min/1.73 ESTIMA KYLIE GFR IS code = 1092) sq m NOT ACCURATE CREATININE CLEARANCE IN PREDICTING GLOMERULAR FILTRATION RATE . ESTIMATED GFR I S NOT APPLICABLE FOR DIALYSIS PATIEN TS. Car Oiler ID - [id number] ID - [id number] ID - [id number] ID - [id number] ID - [id number] ID - [id number] ID - [id number] ID - [id number] ID - [id number] ID - [id number] ID - [id number] ID - [id number] ID - [id number] ID - [id number] ID - paxw70Bwptiyhc ID - [id number] ID - [id number] ID - phpf50Amiasdak ID - [id number] w/Eycwduloqcg0824-27-56 03:45:06 Test Item Value Reference Range Interpretation Comments Color, UA (test code = Yellow 5778-6) Clarity, UA (test code = Clear 5767-9) Specific [place], UA 1.015 1.001-1.035 (test code = 5811-5) pH, UA (test code = 6.0 5.0-8.0 5803-2) Protein, UA (test code = 30 mg/dL Negative A 11212-6) Glucose, UA (test code = Negative Negative 365) Ketones, UA (test code = Negative Negative 2514-8) Bilirubin, UA (test code Negative Negative = 86728-4) Blood, UA (test code = Negative Negative 92115-5) Nitrite, UA (test code = Negative Negative 5802-4) Leukocytes, UA (test Negative Negative code = 5799-2) Urobilinogen, UA (test 1.0 mg/dL 0.2-1.0 code = 73745-2) Bacteria, UA (test code None Seen = 35982-1) RBC, UA (test code = None Seen See_Comment [Autom ated message] 799-7) The system [employer] generated this result transmit kylie reference range : /HPF. The refer ence range was not u sed to interpret th is result as normal/abnormal . WBC, UA (test code = None Seen See_Comment [Autom ated message] 26468-3) The system [employer] generated this result transmit kylie reference range : /HPF. The refer ence range was not u sed to interpret th is result as normal/abnormal . SQUAMOUS EPITHELIAL <5 See_Comment [Automa kylie message] (test code = 73915-7) The sy stem which generated this result transmit kylie reference range : /HPF. The refer ence range was not u sed to interpret th is result as normal/abnormal . Specimen Source (test code = 2795) Lab Interpretation (test Abnormal code = 05471-2) [facility] [id number] 03:45:06 Test Item Value Reference Range Interpretation Comments COLOR (BEAKER) (test code = Yellow 470) CLARITY (BEAKER) (test code = Clear 469) SPECIFIC GRAVITY UA (BEAKER) 1.015 1.001-1.035 (test code = 468) PH UA (BEAKER) (test code = 6.0 5.0-8.0 467) PROTEIN UA (BEAKER) (test code 30 mg/dL Negative A = 464) GLUCOSE UA (BEAKER) (test code Negative Negative = 365) KETONES UA (BEAKER) (test code Negative Negative = 371) BILIRUBIN UA (BEAKER) (test Negative Negative code = 462) BLOOD UA (BEAKER) (test code = Negative Negative 461) NITRITE UA (BEAKER) (test code Negative Negative = 465) LEUKOCYTE ESTERASE UA (BEAKER) Negative Negative (test code = 466) UROBILINOGEN UA (BEAKER) (test 1.0 mg/dL 0.2-1.0 code = 463) BACTERIA (BEAKER) (test code = None Seen 517) RBC UA-MANUAL (BEAKER) (test None Seen /HPF code = 1659) WBC UA-MANUAL (BEAKER) (test None Seen /HPF code = 1661) SQUAMOUS EPITHELIAL MANUAL <5 /HPF (BEAKER) (test code = 1663) SOURCE(BEAKER) (test code = 2795) HCG, SERUM, [id number] 03:40:27 Test Item Value Reference Range Interpretation Comments TEST SERUM (BEAKER) (test Negative code = 584) CBC W/PLT COUNT & AUTO [id number] 03:26:52 Test Item Value Reference Range Interpretation Comments WHITE BLOOD CELL COUNT (BEAKER) 11.8 K/ L 4.0-10.0 H (test code = 775) RED BLOOD CELL COUNT (BEAKER) 3.78 M/ L 4.00-5.00 L (test code = 761) HEMOGLOBIN (BEAKER) (test code = 9.2 GM/DL 12.0-15.5 L 410) HEMATOCRIT (BEAKER) (test code = 29.8 % 36.0-46.0 L 411) MEAN CORPUSCULAR VOLUME (BEAKER) 78.8 fL 82.0-99.0 L (test code = 753) MEAN CORPUSCULAR HEMOGLOBIN 24.3 pg 27.0-33.0 L (BEAKER) (test code = 751) MEAN CORPUSCULAR HEMOGLOBIN CONC 30.9 GM/DL 32.0-36.0 L (BEAKER) (test code = 752) RED CELL DISTRIBUTION WIDTH 18.6 % 12.0-15.0 H (BEAKER) (test code = 412) PLATELET COUNT (BEAKER) (test 503 K/CU MM 150-430 H code = 756) MEAN PLATELET VOLUME (BEAKER) 7.8 fL 6.0-11.5 (test code = 754) NUCLEATED RED BLOOD CELLS 0 /100 WBC 0-0 (BEAKER) (test code = 413) NEUTROPHILS RELATIVE PERCENT 64 % (BEAKER) (test code = 429) LYMPHOCYTES RELATIVE PERCENT 21 % (BEAKER) (test code = 430) MONOCYTES RELATIVE PERCENT 11 % (BEAKER) (test code = 431) EOSINOPHILS RELATIVE PERCENT 4 % (BEAKER) (test code = 432) BASOPHILS RELATIVE PERCENT 1 % (BEAKER) (test code = 437) NEUTROPHILS ABSOLUTE COUNT 7.51 K/ L 1.80-8.00 (BEAKER) (test code = 670) LYMPHOCYTES ABSOLUTE COUNT 2.50 K/ L 1.48-4.50 (BEAKER) (test code = 414) MONOCYTES ABSOLUTE COUNT (BEAKER) 1.24 K/ L 0.00-1.30 (test code = 415) EOSINOPHILS ABSOLUTE COUNT 0.42 K/ L 0.00-0.50 (BEAKER) (test code = 416) BASOPHILS ABSOLUTE COUNT (BEAKER) 0.06 K/ L 0.00-0.20 (test code = 417) IMMATURE GRANULOCYTES-RELATIVE 1 % 0-0 H PERCENT (BEAKER) (test code = 2801) RAD, ABDOMEN/KUB, 1 VIEW [id number] 14:44:00REFERRING : DI COTTON MD....[id number] for Exam:->abdominal pain [facility] : 1975 Sex: FFINAL REPORT EXAM: RAD, ABDOMEN/KUB, 1 VIEW AP HISTORY: Abdominal pain COMPARISON: CT abdomen and pelvis 01/17/2022, abdominal radiograph 01/16/2022 DISCUSSION: Lines/Tubes: None. Bowel:Moderate gaseous distention of the stomach. No significant dilation of large or small bowel. Colonicstool burden is not abnormally increased. Other: No evidence of pneumoperitoneum given exam limitations. Resolution of lucency in the right upper quadrant compared to prior radiographs, likely secondary to interval drainage of air and fluid-filled collection noted on prior CT.Scattered postsurgical changes with superficial skin gil and right upper quadrant surgical clips. Bones: No acute osseous a bnormality. Chest: Elevation of the left hemidiaphragm with left lung base scarring or atelectasis. IMPRESSION: 1. Moderate gaseous distention of the stomach. Otherwise, nonobstructive bowel gas pattern. 2. Scattered postsurgical changes with resolution of right upper quadrant lucency, likely secondary to interval drainage of air and fluid-filled collection noted on prior CT. Signed: Ashley Richards MDReport Verified Date/Time: 01/30/2022 14:44:42 Reading Location: [facility] Reading Room [address] [place] [address] HEPATIC FUNCTION [id number] 13:33:06 Test Item Value Reference Range Interpretation Comments TOTAL PROTEIN (BEAKER) (test code = 8.0 gm/dL 6.0-8.3 770) ALBUMIN (BEAKER) (test code = 1145) 3.5 g/dL 3.5-5.0 BILIRUBIN TOTAL (BEAKER) (test code 1.2 mg/dL 0.2-1.2 = 377) BILIRUBIN DIRECT (BEAKER) (test 0.8 mg/dL 0.1-0.5 H code = 706) ALKALINE PHOSPHATASE (BEAKER) (test 139 U/L 40-150 code = 346) AST (SGOT) (BEAKER) (test code = 78 U/L 5-34 H 353) ALT (SGPT) (BEAKER) (test code = 23 U/L 6-55 347) Car Oiler ID - ADMINBASIC METABOLIC [id number] 13:23:56 Test Item Value Reference Range Interpretation Comments SODIUM (BEAKER) 139 meq/L 136-145 (test code = 381) POTASSIUM (BEAKER) 3.9 meq/L 3.5-5.1 (test code = 379) CHLORIDE (BEAKER) 102 meq/L 98-107 (test code = 382) CO2 (BEAKER) (test 27 meq/L 22-29 code = 355) BLOOD UREA NITROGEN 8 mg/dL 7-21 (BEAKER) (test code = 354) CREATININE (BEAKER) 0.75 mg/dL 0.57-1.25 (test code = 358) GLUCOSE RANDOM 74 mg/dL 70-105 (BEAKER) (test code = 652) CALCIUM (BEAKER) 9.4 mg/dL 8.4-10.2 (test code = 697) EGFR (BEAKER) (test 102 mL/min/1.73 ESTIM ATED GFR IS code = 1092) sq m NOT ACCURATE CREATININE CLEARANCE IN PREDICTING GLOMERULAR FILTRATION RATE . ESTIMATED GFR I S NOT APPLICABLE FOR DIALYSIS PATIEN TS. Car Oiler ID - [id number] 13:23:56 Test Item Value Reference Range Interpretation Comments MAGNESIUM (BEAKER) (test code = 2.0 mg/dL 1.6-2.6 627) Car Oiler ID - [id number] 13:23:56 Test Item Value Reference Range Interpretation Comments PHOSPHORUS (BEAKER) (test code = 3.7 mg/dL 2.3-4.7 604) Car Oiler ID - ADMINGAMMA GLUTAMYL TRANSFERASE (GGT)2022-01-28 13:23:56 Test Item Value Reference Range Interpretation Comments GAMMA GLUTAMYL TRANSFERASE (BEAKER) 249 U/L 9-64 H (test code = 364) Car Oiler ID - ADMINCBC W/PLT COUNT & AUTO [id number] 13:19:05 Test Item Value Reference Range Interpretation Comments WHITE BLOOD CELL COUNT (BEAKER) 9.2 K/ L 3.5-10.5 (test code = 775) RED BLOOD CELL COUNT (BEAKER) 3.58 M/ L 3.93-5.22 L (test code = 761) HEMOGLOBIN (BEAKER) (test code = 8.9 GM/DL 11.2-15.7 L 410) HEMATOCRIT (BEAKER) (test code = 29.0 % 34.1-44.9 L 411) MEAN CORPUSCULAR VOLUME (BEAKER) 81.0 fL 79.4-94.8 (test code = 753) MEAN CORPUSCULAR HEMOGLOBIN 24.9 pg 25.6-32.2 L (BEAKER) (test code = 751) MEAN CORPUSCULAR HEMOGLOBIN CONC 30.7 GM/DL 32.2-35.5 L (BEAKER) (test code = 752) RED CELL DISTRIBUTION WIDTH 19.0 % 11.7-14.4 H (BEAKER) (test code = 412) PLATELET COUNT (BEAKER) (test 538 K/CU MM 150-450 H code = 756) MEAN PLATELET VOLUME (BEAKER) 8.5 fL 9.4-12.3 L (test code = 754) NUCLEATED RED BLOOD CELLS 0 /100 WBC 0-0 (BEAKER) (test code = 413) NEUTROPHILS RELATIVE PERCENT 59 % (BEAKER) (test code = 429) LYMPHOCYTES RELATIVE PERCENT 17 % (BEAKER) (test code = 430) MONOCYTES RELATIVE PERCENT 13 % (BEAKER) (test code = 431) EOSINOPHILS RELATIVE PERCENT 10 % (BEAKER) (test code = 432) BASOPHILS RELATIVE PERCENT 0 % (BEAKER) (test code = 437) NEUTROPHILS ABSOLUTE COUNT 5.43 K/ L 1.56-6.13 (BEAKER) (test code = 670) LYMPHOCYTES ABSOLUTE COUNT 1.59 K/ L 1.18-3.74 (BEAKER) (test code = 414) MONOCYTES ABSOLUTE COUNT (BEAKER) 1.15 K/ L 0.24-0.36 H (test code = 415) EOSINOPHILS ABSOLUTE COUNT 0.91 K/ L 0.04-0.36 H (BEAKER) (test code = 416) BASOPHILS ABSOLUTE COUNT (BEAKER) 0.03 K/ L 0.01-0.08 (test code = 417) IMMATURE GRANULOCYTES-RELATIVE 0 % 0-1 PERCENT (BEAKER) (test code = 2801) PROTHROMBIN [id number] 13:10:11 Test Item Value Reference Range Interpretation Comments PROTIME (BEAKER) 18.4 seconds 11.9-14.2 H (test code = 759) INR (BEAKER) (test 1.55 See_Comment [Automat ed message] code = 370) The system [employer] generated this result transmitted ref erence range: <=5.90. The reference range was not used to int erpret this result as normal/abnormal . RECOMMENDED COUMADIN/WARFARIN INR THERAPY RANGESSTANDARD DOSE: 2.0 - 3.0 Includes: PROPHYLAXIS for venous thrombosis, systemic embolization; TREATMENT for venous thrombosis and/or pulmonary embolus.HIGH RISK: Target INR is 2.5-3.5 for patients with mechanical heart valves.BLOOD [id number] 00:00:58 Test Item Value Reference Range Interpretation Comments CULTURE (BEAKER) (test No growth in 5 days code = 1095) BLOOD [id number] 20:00:57 Test Item Value Reference Range Interpretation Comments CULTURE (BEAKER) (test No growth in 5 days code = 1095) POC-Glucose [id number] 11:18:25 Test Item Value Reference Range Interpretation Comments POC-Glucose Meter (test 148 mg/dL 70-110 H : TE STED AT [facility] code = 1538) [address] [facility], [address]: Car Oiler/Techni giana ID = [id number] for Brad Alicia Lab Interpretation (test Abnormal code = 14608-2) [facility] [id number] 11:18:25 Test Item Value Reference Range Interpretation Comments POC-GLUCOSE METER 148 mg/dL 70-110 H : TESTED A T [facility] 67[address] (BEAKER) (test code = [facility] [employer] [facility] [place] [facility], 1538) [address]: Car Oiler/Techni giana ID = [id number] for Re hami, Brad Venous doppler legs [id number] 08:13:57Ejection FractionSLEH ECHO HEARTLAB MKCKESSON CPACSCHI [facility] CenterPOCT-GLUCOSE [id number] 07:57:30 Test Item Value Reference Range Interpretation Comments POC-GLUCOSE METER 166 mg/dL 70-110 H : TESTED A T [facility] 6720 (BEAKER) (test code = [place], 1538) [address]: Car Oiler/Techni giana ID = [id number] for Breonna Odell [id number] 02:33:12 Test Item Value Reference Range Interpretation Comments PHOSPHORUS (BEAKER) (test code = 3.5 mg/dL 2.3-4.7 604) Car Oiler ID - BSHEPATIC FUNCTION [id number] 02:33:12 Test Item Value Reference Range Interpretation Comments TOTAL PROTEIN (BEAKER) (test code = 6.6 gm/dL 6.0-8.3 770) ALBUMIN (BEAKER) (test code = 1145) 3.1 g/dL 3.5-5.0 L BILIRUBIN TOTAL (BEAKER) (test code 1.3 mg/dL 0.2-1.2 H = 377) BILIRUBIN DIRECT (BEAKER) (test 1.0 mg/dL 0.1-0.5 H code = 706) ALKALINE PHOSPHATASE (BEAKER) (test 110 U/L 40-150 code = 346) AST (SGOT) (BEAKER) (test code = 53 U/L 5-34 H 353) ALT (SGPT) (BEAKER) (test code = 23 U/L 6-55 347) Car Oiler ID - BSBASIC METABOLIC [id number] 02:33:11 Test Item Value Reference Range Interpretation Comments SODIUM (BEAKER) 137 meq/L 136-145 (test code = 381) POTASSIUM (BEAKER) 4.2 meq/L 3.5-5.1 (test code = 379) CHLORIDE (BEAKER) 103 meq/L 98-107 (test code = 382) CO2 (BEAKER) (test 26 meq/L 22-29 code = 355) BLOOD UREA NITROGEN 7 mg/dL 7-21 (BEAKER) (test code = 354) CREATININE (BEAKER) 0.72 mg/dL 0.57-1.25 (test code = 358) GLUCOSE RANDOM 174 mg/dL 70-105 H (BEAKER) (test code = 652) CALCIUM (BEAKER) 8.5 mg/dL 8.4-10.2 (test code = 697) EGFR (BEAKER) (test 107 mL/min/1.73 ESTIM ATED GFR IS code = 1092) sq m NOT ACCURATE CREATININE CLEARANCE IN PREDICTING GLOMERULAR FILTRATION RATE . ESTIMATED GFR I S NOT APPLICABLE FOR DIALYSIS PATIEN TS. Car Oiler ID - [id number] 02:33:11 Test Item Value Reference Range Interpretation Comments MAGNESIUM (BEAKER) (test code = 2.1 mg/dL 1.6-2.6 627) Car Oiler ID - BSVANCOMYCIN LEVEL, [id number] 02:27:48 Test Item Value Reference Range Interpretation Comments VANCOMYCIN TROUGH (BEAKER) (test 12.5 ug/mL 10.0-20.0 code = 522) Car Oiler ID - BSPROTHROMBIN TIME/[id number] 02:25:48 Test Item Value Reference Range Interpretation Comments PROTIME (BEAKER) 18.9 seconds 11.9-14.2 H (test code = 759) INR (BEAKER) (test 1.61 See_Comment [Automat ed message] code = 370) The system [employer] generated this result transmitted ref erence range: <=5.90. The reference range was not used to int erpret this result as normal/abnormal . RECOMMENDED COUMADIN/WARFARIN INR THERAPY RANGESSTANDARD DOSE: 2.0 - 3.0 Includes: PROPHYLAXIS for venous thrombosis, systemic embolization; TREATMENT for venous thrombosis and/or pulmonary embolus.HIGH RISK: Target INR is 2.5-3.5 for patients with mechanical heart valves.CBC (HEMOGRAM ONLY)2022-01-23 02:02:04 Test Item Value Reference Range Interpretation Comments WHITE BLOOD CELL COUNT (BEAKER) 8.4 K/ L 3.5-10.5 (test code = 775) RED BLOOD CELL COUNT (BEAKER) 2.98 M/ L 3.93-5.22 L (test code = 761) HEMOGLOBIN (BEAKER) (test code = 7.6 GM/DL 11.2-15.7 L 410) HEMATOCRIT (BEAKER) (test code = 24.8 % 34.1-44.9 L 411) MEAN CORPUSCULAR VOLUME (BEAKER) 83.2 fL 79.4-94.8 (test code = 753) MEAN CORPUSCULAR HEMOGLOBIN 25.5 pg 25.6-32.2 L (BEAKER) (test code = 751) MEAN CORPUSCULAR HEMOGLOBIN CONC 30.6 GM/DL 32.2-35.5 L (BEAKER) (test code = 752) RED CELL DISTRIBUTION WIDTH 19.1 % 11.7-14.4 H (BEAKER) (test code = 412) PLATELET COUNT (BEAKER) (test 339 K/CU MM 150-450 code = 756) MEAN PLATELET VOLUME (BEAKER) 8.4 fL 9.4-12.3 L (test code = 754) NUCLEATED RED BLOOD CELLS 0 /100 WBC 0-0 (BEAKER) (test code = 413) POCT-GLUCOSE [id number] 21:12:23 Test Item Value Reference Range Interpretation Comments POC-GLUCOSE METER 161 mg/dL 70-110 H : TESTED A T [facility] 6720 (AKER) (test code = [facility], 153) [address]1991: Car Oiler/Techni giana ID = [id number] for ZEB MANZANARES Triglycerides, Peritoneal [id number] 17:45:01 Test Item Value Reference Range Interpretation Comments TRIGLYCERIDES, 39 mg/dL <65 SAMPLE SLIGHT LY PERITONEAL FLUID ICTERIC. (test code = 42016-9) THAI (test code = Performing Lab EZ THAI) [facility] [address] [place] [address] Vijay Puckett MD, PhD, DONNA [facility] campusPOCT-GLUCOSE [id number] 15:30:32 Test Item Value Reference Range Interpretation Comments POC-GLUCOSE METER 202 mg/dL 70-110 H : TESTED A T [facility] 6720 (BEAKER) (test code = [facility], 153) [id number]: Car Oiler/Techni giana ID = [id number] for Brad Bingham POCT-GLUCOSE [id number] 11:31:12 Test Item Value Reference Range Interpretation Comments POC-GLUCOSE METER 160 mg/dL 70-110 H : TESTED A T [facility] 6720 (BEAKER) (test code = [facility], 153) [address]: Car Oiler/Techni giana ID = [id number] for Hollis Rodriguez CT, BRAIN, WITHOUT [id number] 08:56:00REFERRING : BACCAM, DI Kang MD....[id number] Reason for Exam - Click Yes and Enter Reason Below->Y esUnlisted Reason for Exam->Intermittent confusion [facility] : 1975 Sex: FFINAL REPORT CT Head without contrast CLINICAL HISTORY: Unlisted Reason for ExamIntermittent confusion TECHNIQUE: Contiguous axial CT images through the head without contrast. This exam was performed according to the departmental dose optimization program which includes automated exposure control, adjustment of the mA and/or kV according to the patient size, and/or use of an iterative reconstruction technique. COMPARISON: None FINDINGS: There is no CT evidence of acute infarct or intracranial hemorrhage. There is atherosclerotic calcification of the intracranial circulation. There is mild sulcal prominence without hydrocephalus, midline shift, or apparent mass effect. There are no extra-axial fluid collections. The skull is intact. The visualized paranasal sinuses are well-aerated. IMPRESSION: No CT evidence of acute infarct, hemorrhage, or hydrocephalus. Signed: Julissa DowlingMDReport Verified Date/Time: 01/22/2022 08:56:34 Reading Location: [facility] C013V Neuro Reading Room HEPATIC FUNCTION [id number] 07:38:04 Test Item Value Reference Range Interpretation Comments TOTAL PROTEIN (BEAKER) (test code = 7.2 gm/dL 6.0-8.3 770) ALBUMIN (BEAKER) (test code = 1145) 3.4 g/dL 3.5-5.0 L BILIRUBIN TOTAL (BEAKER) (test code 1.7 mg/dL 0.2-1.2 H = 377) BILIRUBIN DIRECT (BEAKER) (test 1.1 mg/dL 0.1-0.5 H code = 706) ALKALINE PHOSPHATASE (BEAKER) (test 111 U/L 40-150 code = 346) AST (SGOT) (BEAKER) (test code = 65 U/L 5-34 H 353) ALT (SGPT) (BEAKER) (test code = 28 U/L 6-55 347) Car Oiler ID - ROSA LOpetor ID - BSPOCT-GLUCOSE [id number] 07:21:24 Test Item Value Reference Range Interpretation Comments POC-GLUCOSE METER 118 mg/dL 70-110 H : TESTED A T [facility] 6720 (BEAKER) (test code = [place], 1538) [id number]: Car Oiler/Techni giana ID = [id number] for Antonio Courtney [id number] 07:01:32 Test Item Value Reference Range Interpretation Comments MAGNESIUM (BEAKER) (test code = 2.1 mg/dL 1.6-2.6 627) Car Oiler ID - ROSA [id number] 07:01:32 Test Item Value Reference Range Interpretation Comments PHOSPHORUS (BEAKER) (test code = 4.1 mg/dL 2.3-4.7 604) Car Oiler ID - ROSA LBASIC METABOLIC [id number] 07:01:31 Test Item Value Reference Range Interpretation Comments SODIUM (BEAKER) 136 meq/L 136-145 (test code = 381) POTASSIUM (BEAKER) 4.2 meq/L 3.5-5.1 (test code = 379) CHLORIDE (BEAKER) 100 meq/L 98-107 (test code = 382) CO2 (BEAKER) (test 28 meq/L 22-29 code = 355) BLOOD UREA NITROGEN 7 mg/dL 7-21 (BEAKER) (test code = 354) CREATININE (BEAKER) 0.75 mg/dL 0.57-1.25 (test code = 358) GLUCOSE RANDOM 121 mg/dL 70-105 H (BEAKER) (test code = 652) CALCIUM (BEAKER) 8.7 mg/dL 8.4-10.2 (test code = 697) EGFR (BEAKER) (test 102 mL/min/1.73 ESTIM ATED GFR IS code = 1092) sq m NOT ACCURATE CREATININE CLEARANCE IN PREDICTING GLOMERULAR FILTRATION RATE . ESTIMATED GFR I S NOT APPLICABLE FOR DIALYSIS PATIEN TS. Car Oiler ID - PIAYA LPROTHROMBIN TIME/[id number] 06:09:16 Test Item Value Reference Range Interpretation Comments PROTIME (BEAKER) 19.0 seconds 11.9-14.2 H (test code = 759) INR (BEAKER) (test 1.62 See_Comment [Automat ed message] code = 370) The system [employer] generated this result transmitted ref erence range: <=5.90. The reference range was not used to int erpret this result as normal/abnormal . RECOMMENDED COUMADIN/WARFARIN INR THERAPY RANGESSTANDARD DOSE: 2.0 - 3.0 Includes: PROPHYLAXIS for venous thrombosis, systemic embolization; TREATMENT for venous thrombosis and/or pulmonary embolus.HIGH RISK: Target INR is 2.5-3.5 for patients with mechanical heart valves.CBC (HEMOGRAM ONLY)2022-01-22 05:51:22 Test Item Value Reference Range Interpretation Comments WHITE BLOOD CELL COUNT (BEAKER) 10.7 K/ L 3.5-10.5 H (test code = 775) RED BLOOD CELL COUNT (BEAKER) 3.34 M/ L 3.93-5.22 L (test code = 761) HEMOGLOBIN (BEAKER) (test code = 8.3 GM/DL 11.2-15.7 L 410) HEMATOCRIT (BEAKER) (test code = 28.0 % 34.1-44.9 L 411) MEAN CORPUSCULAR VOLUME (BEAKER) 83.8 fL 79.4-94.8 (test code = 753) MEAN CORPUSCULAR HEMOGLOBIN 24.9 pg 25.6-32.2 L (BEAKER) (test code = 751) MEAN CORPUSCULAR HEMOGLOBIN CONC 29.6 GM/DL 32.2-35.5 L (BEAKER) (test code = 752) RED CELL DISTRIBUTION WIDTH 19.2 % 11.7-14.4 H (BEAKER) (test code = 412) PLATELET COUNT (BEAKER) (test 406 K/CU MM 150-450 code = 756) MEAN PLATELET VOLUME (BEAKER) 8.4 fL 9.4-12.3 L (test code = 754) NUCLEATED RED BLOOD CELLS 0 /100 WBC 0-0 (BEAKER) (test code = 413) POCT-GLUCOSE [id number] 21:05:10 Test Item Value Reference Range Interpretation Comments POC-GLUCOSE METER 107 mg/dL 70-110 : TESTED A T [facility] 6720 (BEAKER) (test code = [facility], 1538) [address]: Car Oiler/Techni giana ID = [id number] for ZEB MANZANARES POCT-GLUCOSE [id number] 15:53:25 Test Item Value Reference Range Interpretation Comments POC-GLUCOSE METER 188 mg/dL 70-110 H : TESTED A T [facility] 6720 (BEAKER) (test code = [facility], 1538) [address]: Car Oiler/Techni giana ID = [id number] for An Alycia roldan CBC W/PLT COUNT & AUTO [id number] 14:13:04 Test Item Value Reference Range Interpretation Comments WHITE BLOOD CELL COUNT (BEAKER) 10.8 K/ L 3.5-10.5 H (test code = 775) RED BLOOD CELL COUNT (BEAKER) 3.08 M/ L 3.93-5.22 L (test code = 761) HEMOGLOBIN (BEAKER) (test code = 7.9 GM/DL 11.2-15.7 L 410) HEMATOCRIT (BEAKER) (test code = 26.7 % 34.1-44.9 L 411) MEAN CORPUSCULAR VOLUME (BEAKER) 86.7 fL 79.4-94.8 (test code = 753) MEAN CORPUSCULAR HEMOGLOBIN 25.6 pg 25.6-32.2 (BEAKER) (test code = 751) MEAN CORPUSCULAR HEMOGLOBIN CONC 29.6 GM/DL 32.2-35.5 L (BEAKER) (test code = 752) RED CELL DISTRIBUTION WIDTH 19.8 % 11.7-14.4 H (BEAKER) (test code = 412) PLATELET COUNT (BEAKER) (test 359 K/CU MM 150-450 code = 756) MEAN PLATELET VOLUME (BEAKER) 8.9 fL 9.4-12.3 L (test code = 754) NUCLEATED RED BLOOD CELLS 0 /100 WBC 0-0 (BEAKER) (test code = 413) NEUTROPHILS RELATIVE PERCENT 64 % (BEAKER) (test code = 429) LYMPHOCYTES RELATIVE PERCENT 16 % (BEAKER) (test code = 430) MONOCYTES RELATIVE PERCENT 13 % (BEAKER) (test code = 431) EOSINOPHILS RELATIVE PERCENT 7 % (BEAKER) (test code = 432) BASOPHILS RELATIVE PERCENT 0 % (BEAKER) (test code = 437) NEUTROPHILS ABSOLUTE COUNT 6.91 K/ L 1.56-6.13 H (BEAKER) (test code = 670) LYMPHOCYTES ABSOLUTE COUNT 1.76 K/ L 1.18-3.74 (BEAKER) (test code = 414) MONOCYTES ABSOLUTE COUNT (BEAKER) 1.36 K/ L 0.24-0.36 H (test code = 415) EOSINOPHILS ABSOLUTE COUNT 0.73 K/ L 0.04-0.36 H (BEAKER) (test code = 416) BASOPHILS ABSOLUTE COUNT (BEAKER) 0.04 K/ L 0.01-0.08 (test code = 417) IMMATURE GRANULOCYTES-RELATIVE 0 % 0-1 PERCENT (BEAKER) (test code = 2801) Venous doppler arm, [id number] 13:20:57Ejection FractionSLEH ECHO HEARTLAB MKCKESSON [facility] Center[facility]SE [id number] 13:14:13 Test Item Value Reference Range Interpretation Comments POC-GLUCOSE METER 166 mg/dL 70-110 H : TESTED A T [facility] 6720 (BEAKER) (test code = [facility], 1538) [address]: Car Oiler/Techni giana ID = [id number] for JENISE CRUZ JEY VANCOMYCIN LEVEL, [id number] 11:08:02 Test Item Value Reference Range Interpretation Comments VANCOMYCIN TROUGH (BEAKER) (test 3.7 ug/mL 10.0-20.0 L code = 522) Car Oiler ID - DBPOCT-GLUCOSE [id number] 08:27:22 Test Item Value Reference Range Interpretation Comments POC-GLUCOSE METER 161 mg/dL 70-110 H : TESTED A T [facility] 6720 (BEAKER) (test code = [facility], 1538) [address]: Car Oiler/Techni giana ID = [id number] for An Alycia roldan HEPATIC FUNCTION [id number] 06:27:02 Test Item Value Reference Range Interpretation Comments TOTAL PROTEIN (BEAKER) (test code = 6.6 gm/dL 6.0-8.3 770) ALBUMIN (BEAKER) (test code = 1145) 3.2 g/dL 3.5-5.0 L BILIRUBIN TOTAL (BEAKER) (test code 1.5 mg/dL 0.2-1.2 H = 377) BILIRUBIN DIRECT (BEAKER) (test 1.0 mg/dL 0.1-0.5 H code = 706) ALKALINE PHOSPHATASE (BEAKER) (test 99 U/L 40-150 code = 346) AST (SGOT) (BEAKER) (test code = 61 U/L 5-34 H 353) ALT (SGPT) (BEAKER) (test code = 27 U/L 6-55 347) Car Oiler ID - ROSA [id number] 06:27:01 Test Item Value Reference Range Interpretation Comments PHOSPHORUS (BEAKER) (test code = 3.4 mg/dL 2.3-4.7 604) Car Oiler ID - ROSA LBASIC METABOLIC [id number] 06:27:00 Test Item Value Reference Range Interpretation Comments SODIUM (BEAKER) 136 meq/L 136-145 (test code = 381) POTASSIUM (BEAKER) 4.1 meq/L 3.5-5.1 (test code = 379) CHLORIDE (BEAKER) 101 meq/L 98-107 (test code = 382) CO2 (BEAKER) (test 27 meq/L 22-29 code = 355) BLOOD UREA NITROGEN 8 mg/dL 7-21 (BEAKER) (test code = 354) CREATININE (BEAKER) 0.70 mg/dL 0.57-1.25 (test code = 358) GLUCOSE RANDOM 184 mg/dL 70-105 H (BEAKER) (test code = 652) CALCIUM (BEAKER) 8.6 mg/dL 8.4-10.2 (test code = 697) EGFR (BEAKER) (test 110 mL/min/1.73 ESTIM ATED GFR IS code = 1092) sq m NOT ACCURATE CREATININE CLEARANCE IN PREDICTING GLOMERULAR FILTRATION RATE . ESTIMATED GFR I S NOT APPLICABLE FOR DIALYSIS PATIEN TS. Car Oiler ID - ROSA [id number] 06:27:00 Test Item Value Reference Range Interpretation Comments MAGNESIUM (BEAKER) (test code = 2.0 mg/dL 1.6-2.6 627) Car Oiler ID - PIAYA LPROTHROMBIN TIME/[id number] 05:58:48 Test Item Value Reference Range Interpretation Comments PROTIME (BEAKER) 15.3 seconds 11.9-14.2 H (test code = 759) INR (BEAKER) (test 1.23 See_Comment [Automat ed message] code = 370) The system [employer] generated this result transmitted ref erence range: <=5.90. The reference range was not used to int erpret this result as normal/abnormal . RECOMMENDED COUMADIN/WARFARIN INR THERAPY RANGESSTANDARD DOSE: 2.0 - 3.0 Includes: PROPHYLAXIS for venous thrombosis, systemic embolization; TREATMENT for venous thrombosis and/or pulmonary embolus.HIGH RISK: Target INR is 2.5-3.5 for patients with mechanical heart valves.CBC (HEMOGRAM ONLY)2022-01-21 05:43:55 Test Item Value Reference Range Interpretation Comments WHITE BLOOD CELL COUNT (BEAKER) 10.5 K/ L 3.5-10.5 (test code = 775) RED BLOOD CELL COUNT (BEAKER) 3.10 M/ L 3.93-5.22 L (test code = 761) HEMOGLOBIN (BEAKER) (test code = 7.8 GM/DL 11.2-15.7 L 410) HEMATOCRIT (BEAKER) (test code = 25.8 % 34.1-44.9 L 411) MEAN CORPUSCULAR VOLUME (BEAKER) 83.2 fL 79.4-94.8 (test code = 753) MEAN CORPUSCULAR HEMOGLOBIN 25.2 pg 25.6-32.2 L (BEAKER) (test code = 751) MEAN CORPUSCULAR HEMOGLOBIN CONC 30.2 GM/DL 32.2-35.5 L (BEAKER) (test code = 752) RED CELL DISTRIBUTION WIDTH 19.3 % 11.7-14.4 H (BEAKER) (test code = 412) PLATELET COUNT (BEAKER) (test 353 K/CU MM 150-450 code = 756) MEAN PLATELET VOLUME (BEAKER) 8.8 fL 9.4-12.3 L (test code = 754) NUCLEATED RED BLOOD CELLS 0 /100 WBC 0-0 (BEAKER) (test code = 413) POCT-GLUCOSE [id number] 21:55:07 Test Item Value Reference Range Interpretation Comments POC-GLUCOSE METER 192 mg/dL 70-110 H : TESTED A T [facility] 6720 (BEAKER) (test code = [facility], 1538) [address]: Car Oiler/Techni giana ID = [id number] for [place] POCT-GLUCOSE [id number] 16:01:22 Test Item Value Reference Range Interpretation Comments POC-GLUCOSE METER 177 mg/dL 70-110 H : TESTED A T [facility] 6720 (BEAKER) (test code = [facility], 1538) [address]: Car Oiler/Techni giana ID = [id number] for An toine, Alycia POCT-GLUCOSE [id number] 12:24:49 Test Item Value Reference Range Interpretation Comments POC-GLUCOSE METER 201 mg/dL 70-110 H : TESTED A T [facility] 6720 (BEAKER) (test code = [facility], 1538) [address]: Car Oiler/Techni giana ID = [id number] for An toine, Alycia Body fluid culture + gram [id number] 09:13:39 Test Item Value Reference Range Interpretation Comments Result (test code = 6463-4) No growth Gram Stain Result (test No organisms seen code = 1123) [facility] + GRAM [id number] 09:13:39 Test Item Value Reference Range Interpretation Comments CULTURE (BEAKER) (test No growth code = 1095) GRAM STAIN RESULT <1+ White blood cells (BEAKER) (test code = seen 1123) GRAM STAIN RESULT No organisms seen (BEAKER) (test code = 34253) POCT-GLUCOSE [id number] 08:18:35 Test Item Value Reference Range Interpretation Comments POC-GLUCOSE METER 225 mg/dL 70-110 H : TESTED A T [facility] 6720 (BEAKER) (test code = [facility], 1538) [address]: Car Oiler/Techni giana ID = [id number] for An toine, Alycia [id number] 07:02:30 Test Item Value Reference Range Interpretation Comments PHOSPHORUS (BEAKER) (test code = 3.1 mg/dL 2.3-4.7 604) Car Oiler ID - DBHEPATIC FUNCTION [id number] 07:02:30 Test Item Value Reference Range Interpretation Comments TOTAL PROTEIN (BEAKER) (test code = 7.0 gm/dL 6.0-8.3 770) ALBUMIN (BEAKER) (test code = 1145) 3.5 g/dL 3.5-5.0 BILIRUBIN TOTAL (BEAKER) (test code 1.4 mg/dL 0.2-1.2 H = 377) BILIRUBIN DIRECT (BEAKER) (test 1.0 mg/dL 0.1-0.5 H code = 706) ALKALINE PHOSPHATASE (BEAKER) (test 114 U/L 40-150 code = 346) AST (SGOT) (BEAKER) (test code = 55 U/L 5-34 H 353) ALT (SGPT) (BEAKER) (test code = 31 U/L 6-55 347) Car Oiler ID - DBBASIC METABOLIC [id number] 07:02:29 Test Item Value Reference Range Interpretation Comments SODIUM (BEAKER) 136 meq/L 136-145 (test code = 381) POTASSIUM (BEAKER) 4.1 meq/L 3.5-5.1 (test code = 379) CHLORIDE (BEAKER) 101 meq/L 98-107 (test code = 382) CO2 (BEAKER) (test 26 meq/L 22-29 code = 355) BLOOD UREA NITROGEN 8 mg/dL 7-21 (BEAKER) (test code = 354) CREATININE (BEAKER) 0.76 mg/dL 0.57-1.25 (test code = 358) GLUCOSE RANDOM 224 mg/dL 70-105 H (BEAKER) (test code = 652) CALCIUM (BEAKER) 8.6 mg/dL 8.4-10.2 (test code = 697) EGFR (BEAKER) (test 100 mL/min/1.73 ESTIM ATED GFR IS code = 1092) sq m NOT ACCURATE CREATININE CLEARANCE IN PREDICTING GLOMERULAR FILTRATION RATE . ESTIMATED GFR I S NOT APPLICABLE FOR DIALYSIS PATIEN TS. Car Oiler ID - [id number] 07:02:29 Test Item Value Reference Range Interpretation Comments MAGNESIUM (BEAKER) (test code = 2.0 mg/dL 1.6-2.6 627) Car Oiler ID - DBPROTHROMBIN TIME/[id number] 06:49:18 Test Item Value Reference Range Interpretation Comments PROTIME (BEAKER) 14.7 seconds 11.9-14.2 H (test code = 759) INR (BEAKER) (test 1.17 See_Comment [Automat ed message] code = 370) The system [employer] generated this result transmitted ref erence range: <=5.90. The reference range was not used to int erpret this result as normal/abnormal . RECOMMENDED COUMADIN/WARFARIN INR THERAPY RANGESSTANDARD DOSE: 2.0 - 3.0 Includes: PROPHYLAXIS for venous thrombosis, systemic embolization; TREATMENT for venous thrombosis and/or pulmonary embolus.HIGH RISK: Target INR is 2.5-3.5 for patients with mechanical heart valves.CBC (HEMOGRAM ONLY)2022-01-20 06:48:38 Test Item Value Reference Range Interpretation Comments WHITE BLOOD CELL COUNT (BEAKER) 10.8 K/ L 3.5-10.5 H (test code = 775) RED BLOOD CELL COUNT (BEAKER) 3.18 M/ L 3.93-5.22 L (test code = 761) HEMOGLOBIN (BEAKER) (test code = 8.0 GM/DL 11.2-15.7 L 410) HEMATOCRIT (BEAKER) (test code = 26.4 % 34.1-44.9 L 411) MEAN CORPUSCULAR VOLUME (BEAKER) 83.0 fL 79.4-94.8 (test code = 753) MEAN CORPUSCULAR HEMOGLOBIN 25.2 pg 25.6-32.2 L (BEAKER) (test code = 751) MEAN CORPUSCULAR HEMOGLOBIN CONC 30.3 GM/DL 32.2-35.5 L (BEAKER) (test code = 752) RED CELL DISTRIBUTION WIDTH 19.5 % 11.7-14.4 H (BEAKER) (test code = 412) PLATELET COUNT (BEAKER) (test 313 K/CU MM 150-450 code = 756) MEAN PLATELET VOLUME (BEAKER) 8.5 fL 9.4-12.3 L (test code = 754) NUCLEATED RED BLOOD CELLS 0 /100 WBC 0-0 (BEAKER) (test code = 413) POCT-GLUCOSE [id number] 21:52:39 Test Item Value Reference Range Interpretation Comments POC-GLUCOSE METER 162 mg/dL 70-110 H : TESTED A T [facility] 6720 (BEAKER) (test code = [facility], 1538) [address]: Car Oiler/Techni giana ID = [id number] for CA SATNAM, LIAM POCT-GLUCOSE [id number] 16:39:47 Test Item Value Reference Range Interpretation Comments POC-GLUCOSE METER 240 mg/dL 70-110 H : TESTED A T [facility] 6720 (BEAKER) (test code = [facility], 1538) 475[address]: Car Oiler/Techni giana ID = [id number] for RA MOS, ABBI Urine [id number] 11:53:59 Test Item Value Reference Range Interpretation Comments Result (test code = 6463-4) No growth [facility] CenterUR[facility] [id number] 11:53:59 Test Item Value Reference Range Interpretation Comments CULTURE (BEAKER) (test code = 1095) No growth POCT-GLUCOSE [id number] 11:49:25 Test Item Value Reference Range Interpretation Comments POC-GLUCOSE METER 178 mg/dL 70-110 H : TESTED A T [facility] 6720 (BEAKER) (test code = [facility], 1538) [address]: Car Oiler/Techni giana ID = [id number] for RA MOS, ABBI [id number] 08:35:47 Test Item Value Reference Range Interpretation Comments PHOSPHORUS (BEAKER) (test code = 3.6 mg/dL 2.3-4.7 604) Car Oiler ID - VERA MHEPATIC FUNCTION [id number] 08:35:47 Test Item Value Reference Range Interpretation Comments TOTAL PROTEIN (BEAKER) (test code = 7.2 gm/dL 6.0-8.3 770) ALBUMIN (BEAKER) (test code = 1145) 3.9 g/dL 3.5-5.0 BILIRUBIN TOTAL (BEAKER) (test code 1.5 mg/dL 0.2-1.2 H = 377) BILIRUBIN DIRECT (BEAKER) (test 1.1 mg/dL 0.1-0.5 H code = 706) ALKALINE PHOSPHATASE (BEAKER) (test 123 U/L 40-150 code = 346) AST (SGOT) (BEAKER) (test code = 63 U/L 5-34 H 353) ALT (SGPT) (BEAKER) (test code = 37 U/L 6-55 347) Car Oiler ID Ly GAMEZ [id number] 08:35:46 Test Item Value Reference Range Interpretation Comments MAGNESIUM (BEAKER) (test code = 2.0 mg/dL 1.6-2.6 627) Car Oiler ID - VERA MBASIC METABOLIC [id number] 08:35:45 Test Item Value Reference Range Interpretation Comments SODIUM (BEAKER) 136 meq/L 136-145 (test code = 381) POTASSIUM (BEAKER) 4.2 meq/L 3.5-5.1 (test code = 379) CHLORIDE (BEAKER) 102 meq/L 98-107 (test code = 382) CO2 (BEAKER) (test 26 meq/L 22-29 code = 355) BLOOD UREA NITROGEN 7 mg/dL 7-21 (BEAKER) (test code = 354) CREATININE (BEAKER) 0.87 mg/dL 0.57-1.25 (test code = 358) GLUCOSE RANDOM 165 mg/dL 70-105 H (BEAKER) (test code = 652) CALCIUM (BEAKER) 9.0 mg/dL 8.4-10.2 (test code = 697) EGFR (BEAKER) (test 86 mL/min/1.73 ESTIMA KYLIE GFR IS code = 1092) sq m NOT ACCURATE CREATININE CLEARANCE IN PREDICTING GLOMERULAR FILTRATION RATE . ESTIMATED GFR I S NOT APPLICABLE FOR DIALYSIS PATIEN TS. Car Oiler ID - VERA MPOCT-GLUCOSE [id number] 07:41:00 Test Item Value Reference Range Interpretation Comments POC-GLUCOSE METER 178 mg/dL 70-110 H : TESTED A T [facility] 6720 (BEAKER) (test code = [facility] [place], 1538) [address]: Car Oiler/Techni giana ID = [id number] for RA MOS, ABBI PROTHROMBIN TIME/[id number] 07:03:03 Test Item Value Reference Range Interpretation Comments PROTIME (BEAKER) 14.5 seconds 11.9-14.2 H (test code = 759) INR (BEAKER) (test 1.15 See_Comment [Automat ed message] code = 370) The system [employer] generated this result transmitted ref erence range: <=5.90. The reference range was not used to int erpret this result as normal/abnormal . RECOMMENDED COUMADIN/WARFARIN INR THERAPY RANGESSTANDARD DOSE: 2.0 - 3.0 Includes: PROPHYLAXIS for venous thrombosis, systemic embolization; TREATMENT for venous thrombosis and/or pulmonary embolus.HIGH RISK: Target INR is 2.5-3.5 for patients with mechanical heart valves.CBC (HEMOGRAM ONLY)2022-01-19 06:47:21 Test Item Value Reference Range Interpretation Comments WHITE BLOOD CELL COUNT (BEAKER) 10.6 K/ L 3.5-10.5 H (test code = 775) RED BLOOD CELL COUNT (BEAKER) 3.34 M/ L 3.93-5.22 L (test code = 761) HEMOGLOBIN (BEAKER) (test code = 8.5 GM/DL 11.2-15.7 L 410) HEMATOCRIT (BEAKER) (test code = 28.1 % 34.1-44.9 L 411) MEAN CORPUSCULAR VOLUME (BEAKER) 84.1 fL 79.4-94.8 (test code = 753) MEAN CORPUSCULAR HEMOGLOBIN 25.4 pg 25.6-32.2 L (BEAKER) (test code = 751) MEAN CORPUSCULAR HEMOGLOBIN CONC 30.2 GM/DL 32.2-35.5 L (BEAKER) (test code = 752) RED CELL DISTRIBUTION WIDTH 19.6 % 11.7-14.4 H (BEAKER) (test code = 412) PLATELET COUNT (BEAKER) (test 328 K/CU MM 150-450 code = 756) MEAN PLATELET VOLUME (BEAKER) 8.6 fL 9.4-12.3 L (test code = 754) NUCLEATED RED BLOOD CELLS 0 /100 WBC 0-0 (BEAKER) (test code = 413) POCT-GLUCOSE [id number] 22:21:28 Test Item Value Reference Range Interpretation Comments POC-GLUCOSE METER 98 mg/dL 70-110 : TESTED Thiago T [facility] 6720 (BEAKER) (test code = [facility] [place], 1538) [address]: Car Oiler/Techni giana ID = [id number] for GUSTABO JEREMIJEY POCT-GLUCOSE [id number] 15:52:41 Test Item Value Reference Range Interpretation Comments POC-GLUCOSE METER 142 mg/dL 70-110 H : TESTED A T [facility] (BEAKER) (test code = [facility], 1538) [address]: Car Oiler/Techni giana ID = [id number] for Wa Lily paez body fluid [id number] 11:15:37 Test Item Value Reference Range Interpretation Comments Scan Result (test code = See scanned report [id number]) THAI (test code = THAI) See scanned report [facility] [id number] 11:14:44 Test Item Value Reference Range Interpretation Comments POC-GLUCOSE METER 180 mg/dL 70-110 H : [facility] (test code = [facility], 1538) 10[address]: Car Oiler/Techni giana ID = [id number] for Brad Bingham U/S, DRAINAGE, W/ CATH [id number] 11:06:00REFERRING : [facility]....[facility]- fluid collection/abs[facility] : 1975 Sex: FFINAL REPORT U/S, DRAINAGE, W/ CATH PLACEMENT History: s/p hepatectomy- fluid collection/abscess Modality: Sonography Sedation: Versed 1 mg and fentanyl 50 mcg was given intravenously for conscious sedation. Vital signs were monitored throughout the procedure by a nurse, and remained stable. Physician intra-service time was 20 minutes. Quality Improvement Analyst: Christos Segundo MD. Product Support Technician: None. Approach: Right upper quadrant ultrasound guidance Estimated blood loss: < 5 cc. Specimen:750 cc of castillo fluid. Technique: Informed written consent was obtained. Discussion of risks, benefits, and alternatives were made with the patient. The patient expressed understanding and agreed to proceed. A universal timeout was performed prior to starting the procedure. All elements maximal sterile barrier technique was utilized for this procedure, including utilization of sterile scrub solution for skin prep, a large sterile sheet to cover the areas of the patient that were not prepped, and hand hygiene, mask, head covering, and sterile gown for performing radiologist and scrub technologist. Af ter achieving local anesthesia with lidocaine a 8 Chadian drain was placed into the right hepatic collection under live ultrasound guidance via and costal space using trocar technique. The inner stiffener was then removed, and the pigtail of the catheter was locked. The catheter was then secured onto the skin with 2-0 Prolene. A sterile dressing was applied. The patient tolerated the procedure well, without immediate complications. The patient's vital signs remained stable throughout the procedure. Impression: Successful ultrasound-guided right hepatic postsurgical fluid collection 8 Chadian drainage catheter placement with conscious sedation. Signed: Christos Segundo MDReport Verified Date/Time: 01/18/2022 11:06:05 Reading Location: [place] [address] Angio Body Reading Room POCT-GLUCOSE METER 2022-01-18 08:48:20 Test Item Value Reference Range Interpretation Comments POC-GLUCOSE METER 205 mg/dL 70-110 H : TESTED A T [facility] 6720 (BEAKER) (test code = MARIA GUADALUPE [facility], 1538) [address]: Car Oiler/Techni giana ID = [id number] for Breonna Odell PROTHROMBIN TIME/[id number] 05:09:45 Test Item Value Reference Range Interpretation Comments PROTIME (BEAKER) 14.8 seconds 11.9-14.2 H (test code = 759) INR (BEAKER) (test 1.17 See_Comment [Automat ed message] code = 370) The system [employer] generated this result transmitted ref erence range: <=5.90. The reference range was not used to int erpret this result as normal/abnormal . RECOMMENDED COUMADIN/WARFARIN INR THERAPY RANGESSTANDARD DOSE: 2.0 - 3.0 Includes: PROPHYLAXIS for venous thrombosis, systemic embolization; TREATMENT for venous thrombosis and/or pulmonary embolus.HIGH RISK: Target INR is 2.5-3.5 for patients with mechanical heart valves.HEPATIC FUNCTION [id number] 05:09:24 Test Item Value Reference Range Interpretation Comments TOTAL PROTEIN (BEAKER) (test code = 6.5 gm/dL 6.0-8.3 770) ALBUMIN (BEAKER) (test code = 1145) 3.1 g/dL 3.5-5.0 L BILIRUBIN TOTAL (BEAKER) (test code 1.3 mg/dL 0.2-1.2 H = 377) BILIRUBIN DIRECT (BEAKER) (test 0.9 mg/dL 0.1-0.5 H code = 706) ALKALINE PHOSPHATASE (BEAKER) (test 120 U/L 40-150 code = 346) AST (SGOT) (BEAKER) (test code = 61 U/L 5-34 H 353) ALT (SGPT) (BEAKER) (test code = 44 U/L 6-55 347) Car Oiler ID - [id number] 05:09:23 Test Item Value Reference Range Interpretation Comments PHOSPHORUS (BEAKER) (test code = 3.5 mg/dL 2.3-4.7 604) Car Oiler ID - [id number] 05:09:22 Test Item Value Reference Range Interpretation Comments MAGNESIUM (BEAKER) (test code = 1.9 mg/dL 1.6-2.6 627) Car Oiler ID - DBBASIC METABOLIC [id number] 05:09:21 Test Item Value Reference Range Interpretation Comments SODIUM (BEAKER) 131 meq/L 136-145 L (test code = 381) POTASSIUM (BEAKER) 4.5 meq/L 3.5-5.1 (test code = 379) CHLORIDE (BEAKER) 100 meq/L 98-107 (test code = 382) CO2 (BEAKER) (test 24 meq/L 22-29 code = 355) BLOOD UREA NITROGEN 7 mg/dL 7-21 (BEAKER) (test code = 354) CREATININE (BEAKER) 0.87 mg/dL 0.57-1.25 (test code = 358) GLUCOSE RANDOM 259 mg/dL 70-105 H (BEAKER) (test code = 652) CALCIUM (BEAKER) 8.8 mg/dL 8.4-10.2 (test code = 697) EGFR (BEAKER) (test 86 mL/min/1.73 ESTIMA KYLIE GFR IS code = 1092) sq m NOT ACCURATE CREATININE CLEARANCE IN PREDICTING GLOMERULAR FILTRATION RATE . ESTIMATED GFR I S NOT APPLICABLE FOR DIALYSIS PATIEN TS. Car Oiler ID - [id number] (HEMOGRAM ONLY)2022-01-18 04:57:54 Test Item Value Reference Range Interpretation Comments WHITE BLOOD CELL COUNT (BEAKER) 11.0 K/ L 3.5-10.5 H (test code = 775) RED BLOOD CELL COUNT (BEAKER) 3.30 M/ L 3.93-5.22 L (test code = 761) HEMOGLOBIN (BEAKER) (test code = 8.4 GM/DL 11.2-15.7 L 410) HEMATOCRIT (BEAKER) (test code = 27.4 % 34.1-44.9 L 411) MEAN CORPUSCULAR VOLUME (BEAKER) 83.0 fL 79.4-94.8 (test code = 753) MEAN CORPUSCULAR HEMOGLOBIN 25.5 pg 25.6-32.2 L (BEAKER) (test code = 751) MEAN CORPUSCULAR HEMOGLOBIN CONC 30.7 GM/DL 32.2-35.5 L (BEAKER) (test code = 752) RED CELL DISTRIBUTION WIDTH 19.8 % 11.7-14.4 H (BEAKER) (test code = 412) PLATELET COUNT (BEAKER) (test 308 K/CU MM 150-450 code = 756) MEAN PLATELET VOLUME (BEAKER) 8.8 fL 9.4-12.3 L (test code = 754) NUCLEATED RED BLOOD CELLS 0 /100 WBC 0-0 (BEAKER) (test code = 413) POCT-GLUCOSE [id number] 21:07:25 Test Item Value Reference Range Interpretation Comments POC-GLUCOSE METER 221 mg/dL 70-110 H : TESTED Thiago T [facility] 6720 (BEAKER) (test code = MARIA GUADALUPE [place], 1538) [address]: Car Oiler/Techni giana ID = [id number] for AN NOR, DESTINI Body fluid cell count with [id number] 21:00:18 Test Item Value Reference Range Interpretation Comments Appearance (test code Slightly Hazy Clear A = 9335-1) Color (test code = Castillo Colorless, Straw A 6824-7) RBCs (test code = 8000 See_Comment H [Automate d 80940-4) message] The system which generated this result transmit kylie reference range : <=1 /cu mm. The reference range was not used to interpret this result as normal/abnormal . Adjusted WBC Count 1173 See_Comment H [Automat ed (test code = 32212-3) messag e] The system which generated this result transmit kylie reference range : <=5 /cu mm. The reference range was not used to interpret this result as normal/abnormal . Lining Cells (test 0 See_Comment [Automat ed code = 89712-4) message] The system which generated this result transmit kylie reference range : <=1 /cu mm. The reference range was not used to interpret this result as normal/abnormal . % Segs (test code = 7 % 57726-2) % Lymphs (test code = 43 % 26612-8) % Monos (test code = 22 % 33386-4) % Eos (test code = 23 % 06057-3) % Baso (test code = 5 % 19038-4) Container Body Fluid EDTA Tube (test code = 2873) Lab Interpretation Abnormal (test code = 15405-0) [facility] WITH [id number] 21:00:18 Test Item Value Reference Range Interpretation Comments APPEARANCE FLUID Slightly Hazy Clear A (BEAKER) (test code = 510) COLOR FLUID (BEAKER) Castillo Colorless, Straw A (test code = 511) RBC FLUID (BEAKER) 8000 /cu mm See_Comment H [Automat ed (test code = 513) message] T he system which generated this result transmitted reference range : <=1. The refere nce range was not u sed to interpret th is result as normal/abnormal . ADJUSTED WBC FLUID 1173 /cu mm See_Comment H [Automat ed (BEAKER) (test code message] The system = 1691) which generated this result transmitted reference range : <=5. The refere nce range was not u sed to interpret th is result as normal/abnormal . LINING CELLS 0 /cu mm See_Comment [Automated (BEAKER) (test code message] The system = 1590) which generated this result transmitted reference range : <=1. The refere nce range was not u sed to interpret th is result as normal/abnormal . NEUTROPHILS FLUID 7 % (BEAKER) (test code = 1656) LYMPHS FLUID 43 % (BEAKER) (test code = 488) MONO/MACROPHAGE 22 % FLUID (BEAKER) (test code = 489) EOSINOPHILS FLUID 23 % (BEAKER) (test code = 491) BASO FLUID (BEAKER) 5 % (test code = 492) CONTAINER BODY FLUID EDTA Tube (BEAKER) (test code = 2873) POCT-GLUCOSE [id number] 18:31:34 Test Item Value Reference Range Interpretation Comments POC-GLUCOSE METER 70 mg/dL 70-110 : TESTED A T [facility] 6720 (BEAKER) (test code = MARIA GUADALUPE [place] [facility], 1538) [address]: Car Oiler/Techni giana ID = [id number] for KAREEM POWER Amylase Peritoneal [id number] 18:26:07 Test Item Value Reference Range Interpretation Comments AMYLASE, PERITONEAL 17 U/L See Comment FLUID (test code = 0694785) THAI (test code = Amylase activity in THAI) peritoneal fluids of non-pancreatic origin is often less than or equal to the amylase activity in blood, whereas elevated amylase activity has been reported in fluid of pancreatic origin (five-folds or higher compared to contemporaneously collected blood specimen).This test has been modified from the civil division deputy sheriff's instructions and its performance characteristics were determined by [facility]. The laboratory is regulated under CLIA as qualified to perform high-complexity testing. This test has not been cleared or approved by the U.S. Food and Drug Administration. The reference intervals and other method performance specifications are unavailable for amylase in peritoneal fluid. Comparison of this result with the blood amylase is recommended. Car Oiler ID - DB [facility] campusAMYLASE PERITONEAL [id number] 18:26:07 Test Item Value Reference Range Interpretation Comments AMYLASE, PERITONEAL FLUID (test code = 17 U/L See Comment 4941542) Amylase activity in peritoneal fluids of non-pancreatic origin is often less than or equal to the amylase activity in blood, whereas elevated amylase activity has been reported in fluid of pancreatic origin (five-folds or higher compared to contemporaneously collected blood specimen).This test has been modified from the civil division deputy sheriff's instructions and its performance characteristics were determined by [facility]. The laboratory is regulated under CLIA as qualified to perform high-complexity testing. This test has not been cleared or approved by the U.S. Food and Drug Administration. The reference intervals and other method performance specifications are unavailable for amylase in peritoneal fluid. Comparison of this result with the blood amylase is recommended.Car Oiler ID - DBPOCT-GLUCOSE [id number] 14:00:24 Test Item Value Reference Range Interpretation Comments POC-GLUCOSE METER 123 mg/dL 70-110 H : TESTED Thiago T [facility] 6720 (BEAKER) (test code = MARIA GUADALUPE [place], 1538) 595[address]: Car Oiler/Techni giana ID = [id number] for Breonna Odell SARS-CoV2/RT-PCR (Asymptomatic ONLY)2022-01-17 12:59:33 Test Item Value Reference Range Interpretation Comments SARS-COV2/RT-PCR Negative Not Detected, (test code = Negative, See 70167-3) external report for linked test SARS-COV-2 [facility] NOY PERFORMING LAB (test code = 88262-0) THAI (test code = Negative result for this THAI) test determines that SARS-CoV-2 RNA was not present in the specimen above the Limit of Detection (LOD). However, Negative results do not preclude SARS-CoV-2 infection and should not be used as the sole basis for treatment or patient management decisions. Negative results must be combined with clinical observations, patient history, and epidemiological information. A false negative result may occur if a specimen is improperly collected, transported or handled. A false negative result should be considered if patient's recent exposures or clinical presentation indicate that COVID-19 (SARS-CoV-2) is likely and diagnostic tests for other causes of illness are negative. Re-testing should be considered in cases of suspected false negatives. The limit of detection for this assay is 800 copies/mL. This SARS CoV-2 test is a real-time RT-PCR test intended for the qualitative detection of nucleic acid from SARS-CoV-2 in a nasopharyngeal swab specimen collected from individuals suspected of COVID-19 by their healthcare provider. This test has not been Food and Drug Administration (FDA) cleared or approved. This is a modified version of an approved Emergency Use Authorization (EUA) and is in the process of review by the FDA. Once authorized by the FDA, the issued EUA will be effective until the declaration that circumstances exist justifying the authorization of the emergency use of in vitro diagnostic tests for detection and/or diagnosis of COVID-19 is terminated under Section 564(b)(2) of the Act or the EUA is revoked under Section 564(g) of the Act. Fact Sheet for Healthcare Providers:https://www.ditlo/sites/default/f matt/product/documents/F act_Sheet_HC_Providers_L bne_FVWL-UdR-5.pdf Fact Sheet for Healthcare Patients:https://www.Viblio/sites/default/fi les/product/documents/Fa ct_Sheet_Patients_Lyra_S ARS-CoV-2.pdf Performing Laboratory:[facility] [place], [place] [address]andie[place]ward, [place] [address] [place], [place] [address]ARS-COV2/RT-PCR ([facility])2022-01-17 12:59:33 Test Item Value Reference Range Interpretation Comments SARS-COV2/RT-PCR (test Negative Not Detected, Negative, code = 4806407) See external report for linked test SARS-COV-2 PERFORMING LAB [facility] NOY (test code = 8605169) Negative result for this test determines that SARS-CoV-2 RNA was not present in the specimen above the Limit of Detection (LOD). However, Negative results do not preclude SARS-CoV-2 infection and should not be used as the sole basis for treatment or patient management decisions. Negative results must be combined with clinical observations, patient history, and epidemiological information. A false negative result may occur if a specimen is improperly collected, transported or handled. A false negative result should be considered if patient's recent exposures or clinical presentation indicate that COVID-19 (SARS-CoV-2) is likely and diagnostic tests for other causes of illness are negative. Re-testing should be considered in cases of suspected false negatives.The limit of detection for this assay is 800 copies/mL.This SARS CoV-2 test is a real-time RT-PCR test intended for the qualitative detection of nucleic acid from SARS-CoV-2 in a nasopharyngeal swab specimen collected from individuals suspected of COVID-19 by their healthcare provider.This test has not been Food and Drug Administration (FDA) cleared or approved. This is a modified version of an approved Emergency Use Authorization (EUA) and is in the process of review by the FDA. Once authorized by the FDA, the issued EUA will be effective until the declaration that circumstances exist justifying the authorization of the emergency use ofin vitro diagnostic tests for detection and/or diagnosis of COVID-19 is terminated under Section 564(b)(2) of the Act or the EUA is revoked under Section 564(g) of the Act.Fact Sheet for Healthcare Prov iders:https://www.[employer]/sites/default/files/product/documents/Fact_Sheet_HC _Xrlwaoauo_Syaa_YXLA-SuJ-8.pdfFact Sheet for Healthcare Patients:https://www.[employer]/sites/default/files/product/docume nts/Goyt_Nfywr_Aiylestq_Rxbh_RIYD-HmP-5.pdfPerforming Laboratory:[facility] [facility], [place] [address]JZWD-NTCEVLB METER 2022-01-17 11:57:50 Test Item Value Reference Range Interpretation Comments POC-GLUCOSE METER 153 mg/dL 70-110 H : TESTED Thiago T [facility] 6720 (BEAKER) (test code = MARIA GUADALUPE [place] [facility], 1538) [address]: Car Oiler/Techni giana ID = [id number] for FE LDER, MARTHA URINALYSIS W/ REFLEX URINE [id number] 11:29:55 Test Item Value Reference Range Interpretation Comments COLOR (BEAKER) (test code = 470) Light Yellow CLARITY (BEAKER) (test code = Clear 469) SPECIFIC GRAVITY UA (BEAKER) 1.026 1.001-1.035 (test code = 468) PH UA (BEAKER) (test code = 467) 6.0 5.0-8.0 PROTEIN UA (BEAKER) (test code = Negative Negative 464) GLUCOSE UA (BEAKER) (test code = Negative Negative 365) KETONES UA (BEAKER) (test code = Negative Negative 371) BILIRUBIN UA (BEAKER) (test code Negative Negative = 462) BLOOD UA (BEAKER) (test code = Negative Negative 461) NITRITE UA (BEAKER) (test code = Negative Negative 465) LEUKOCYTE ESTERASE UA (BEAKER) Negative Negative (test code = 466) UROBILINOGEN UA (BEAKER) (test 0.2 mg/dL 0.2-1.0 code = 463) RBC UA (BEAKER) (test code = 0 /HPF 519) WBC UA (BEAKER) (test code = 2 /HPF 520) BACTERIA (BEAKER) (test code = None Seen 517) SQUAMOUS EPITHELIAL (BEAKER) 2 /HPF (test code = 516) CRYSTALS, URINE (BEAKER) (test Rare code = 1521) SOURCE(BEAKER) (test code = 2795) Car Oiler ID - [auto]Car Oiler ID - techCT, [id number] 10:23:00REFERRING : DI COTTON MD....[id number] Reason for Exam - Click Yes and Enter Reason Below->YesUnlisted Reason for Exam->Abdominal painIs this for enterography?->NoWill this procedure require oral contrast?->No [facility] : 1975 Sex: FFINAL REPORT TECHNIQUE: CT of the abdomen and pelvis WITH intravenous contrast and WITHOUT oral contrast. Dose modulation, iterative reconstruction, and/or weight-based adjustment ofthe mA/kV was utilized to reduce the radiation dose to as low as reasonably achievable. INDICATION: Abdominal pain. COMPARISON: MRI 11/29/2021. FINDINGS: LOWER THORAX: Small bilateral pleural effusions,right greater than left with bilateral lower lobe consolidation.. HEPATOBILIARY: Status post right hepatectomy. There is a loculated fluid collection within the surgical bed with air-fluid level measuring 17 x 11.5 x 1.5 cm.. Status post cholecystectomy.. No biliary ductal dilatation.SPLEEN: No splenomegaly.PANCREAS: No focal masses or ductal dilatation. ADRENALS: No adrenal nodules.KIDNEYS/URETERS: No hydronephrosis, stones, or solid mass lesions.PELVIC ORGANS/BLADDER: Unremarkable. PERITONEUM/RETROPERITONEUM: Small amount of free intracranial fluid. Loculated fluid collection within the right hepatectomy surgical bed as above..LYMPH NODES: No lymphadenopathy.VESSELS: Unremarkable. GI TRACT: No distention or wall thickening. BONES AND SOFT TISSUES: Diffuse body wall edema. There is a fat-containing infraumbilical midline ventral hernia. Degenerative changes in the spine. No suspicious osseous abnormality.. IMPRESSION:Status post right hepatectomy with large loculated fluid collection in the surgical bed with air-fluid level concerning for abscess or biloma. Small volume ascites. Diffuse body wall edema. Small bilateral pleural effusions with lower lobe consolidation likely representing atelectasis and/or pneumonia. Signed: Raghav Emmanuel MDReport Verified Date/Time: 01/17/2022 10:23:51 Reading Location: [address] Ortho Consult Reading Room [id number] 04:51:20 Test Item Value Reference Range Interpretation Comments PHOSPHORUS (BEAKER) (test code = 3.6 mg/dL 2.3-4.7 604) Car Oiler ID - PIAYA LHEPATIC FUNCTION [id number] 04:51:20 Test Item Value Reference Range Interpretation Comments TOTAL PROTEIN (BEAKER) (test code = 6.4 gm/dL 6.0-8.3 770) ALBUMIN (BEAKER) (test code = 1145) 3.1 g/dL 3.5-5.0 L BILIRUBIN TOTAL (BEAKER) (test code 1.2 mg/dL 0.2-1.2 = 377) BILIRUBIN DIRECT (BEAKER) (test 0.8 mg/dL 0.1-0.5 H code = 706) ALKALINE PHOSPHATASE (BEAKER) (test 115 U/L 40-150 code = 346) AST (SGOT) (BEAKER) (test code = 61 U/L 5-34 H 353) ALT (SGPT) (BEAKER) (test code = 57 U/L 6-55 H 347) Car Oiler ID Ly LEE [id number] 04:51:19 Test Item Value Reference Range Interpretation Comments MAGNESIUM (BEAKER) (test code = 2.0 mg/dL 1.6-2.6 627) Car Oiler ID Ly LEE LBASIC METABOLIC [id number] 04:51:18 Test Item Value Reference Range Interpretation Comments SODIUM (BEAKER) 134 meq/L 136-145 L (test code = 381) POTASSIUM (BEAKER) 4.2 meq/L 3.5-5.1 (test code = 379) CHLORIDE (BEAKER) 101 meq/L 98-107 (test code = 382) CO2 (BEAKER) (test 26 meq/L 22-29 code = 355) BLOOD UREA NITROGEN 8 mg/dL 7-21 (BEAKER) (test code = 354) CREATININE (BEAKER) 0.83 mg/dL 0.57-1.25 (test code = 358) GLUCOSE RANDOM 195 mg/dL 70-105 H (BEAKER) (test code = 652) CALCIUM (BEAKER) 8.9 mg/dL 8.4-10.2 (test code = 697) EGFR (BEAKER) (test 91 mL/min/1.73 ESTIMA KYLIE GFR IS code = 1092) sq m NOT ACCURATE CREATININE CLEARANCE IN PREDICTING GLOMERULAR FILTRATION RATE . ESTIMATED GFR I S NOT APPLICABLE FOR DIALYSIS PATIEN TS. Car Oiler ID - ROSA LPROTHROMBIN TIME/[id number] 04:34:11 Test Item Value Reference Range Interpretation Comments PROTIME (BEAKER) 14.4 seconds 11.9-14.2 H (test code = 759) INR (BEAKER) (test 1.14 See_Comment [Automat ed message] code = 370) The system [employer] generated this result transmitted ref erence range: <=5.90. The reference range was not used to int erpret this result as normal/abnormal . RECOMMENDED COUMADIN/WARFARIN INR THERAPY RANGESSTANDARD DOSE: 2.0 - 3.0 Includes: PROPHYLAXIS for venous thrombosis, systemic embolization; TREATMENT for venous thrombosis and/or pulmonary embolus.HIGH RISK: Target INR is 2.5-3.5 for patients with mechanical heart valves.CBC (HEMOGRAM ONLY)2022-01-17 04:15:27 Test Item Value Reference Range Interpretation Comments WHITE BLOOD CELL COUNT (BEAKER) 11.0 K/ L 3.5-10.5 H (test code = 775) RED BLOOD CELL COUNT (BEAKER) 3.32 M/ L 3.93-5.22 L (test code = 761) HEMOGLOBIN (BEAKER) (test code = 8.4 GM/DL 11.2-15.7 L 410) HEMATOCRIT (BEAKER) (test code = 27.3 % 34.1-44.9 L 411) MEAN CORPUSCULAR VOLUME (BEAKER) 82.2 fL 79.4-94.8 (test code = 753) MEAN CORPUSCULAR HEMOGLOBIN 25.3 pg 25.6-32.2 L (BEAKER) (test code = 751) MEAN CORPUSCULAR HEMOGLOBIN CONC 30.8 GM/DL 32.2-35.5 L (BEAKER) (test code = 752) RED CELL DISTRIBUTION WIDTH 19.7 % 11.7-14.4 H (BEAKER) (test code = 412) PLATELET COUNT (BEAKER) (test 300 K/CU MM 150-450 code = 756) MEAN PLATELET VOLUME (BEAKER) 8.7 fL 9.4-12.3 L (test code = 754) NUCLEATED RED BLOOD CELLS 0 /100 WBC 0-0 (BEAKER) (test code = 413) POCT-GLUCOSE [id number] 22:10:37 Test Item Value Reference Range Interpretation Comments POC-GLUCOSE METER 189 mg/dL 70-110 H : TESTED A T [facility] 6720 (BEAKER) (test code = [facility], 1538) 15574: Car Oiler/Techni giana ID = [id number] for DA CRISPIN DAVIESA POCT-GLUCOSE [id number] 15:30:39 Test Item Value Reference Range Interpretation Comments POC-GLUCOSE METER 203 mg/dL 70-110 H : TESTED A T [facility] 6720 (BEAKER) (test code = [facility], 1538) [address]85[address]: Car Oiler/Techni giana ID = [id number] for An toine, Alycia POCT-GLUCOSE [id number] 11:47:30 Test Item Value Reference Range Interpretation Comments POC-GLUCOSE METER 183 mg/dL 70-110 H : [facility] (KIT) (test code = MARIA GUADALUPE [place], 1538) 86[address]: Car Oiler/Techni giana ID = [id number] for An Alycia roldan URINE [id number] 10:40:06 Test Item Value Reference Range Interpretation Comments CULTURE (KIT) (test code = 1095) No growth RAD, ABDOMEN/KUB, 1 VIEW [id number] 09:37:00REFERRING : BACDI VALENTINO MD....1495Reason for exam:->Abdominal cramping [facility] : 1975 Sex: FFINAL REPORT RAD, ABDOMEN/KUB, 1 VIEW AP TECHNIQUE: Supine radiograph(s) of the abdomen and pelvis. HISTORY: Abdominal cramping COMPARISON: 01/09/2022 abdominal radiograph IMPRESSION:Lines and tubes: None Bowel gas pattern: Nonobstructive bowel gas pattern. Question of some air within the right upper quadrant of the abdomen projecting over the right lobe of the liver, of uncertain clinical significance status post partial right hepatectomy. Other: No acute osseous abnormality. Cholecystectomy clips. Abdominal wall skin gil. Signed: Ivan Rice Verified Date/Time: 01/16/2022 09:37:50 POCT- GLUCOSE [id number] 07:49:38 Test Item Value Reference Range Interpretation Comments POC-GLUCOSE METER 200 mg/dL 70-110 H : TESTED A T [facility] 6720 (BEAKER) (test code = MAR[place] GUADALU[place], 1538) [address]: Car Oiler/Techni giana ID = [id number] for An Alycia roldan HEPATIC FUNCTION [id number] 06:55:32 Test Item Value Reference Range Interpretation Comments TOTAL PROTEIN (BEAKER) (test code = 5.8 gm/dL 6.0-8.3 L 770) ALBUMIN (BEAKER) (test code = 1145) 3.0 g/dL 3.5-5.0 L BILIRUBIN TOTAL (BEAKER) (test code 1.5 mg/dL 0.2-1.2 H = 377) BILIRUBIN DIRECT (BEAKER) (test 1.0 mg/dL 0.1-0.5 H code = 706) ALKALINE PHOSPHATASE (BEAKER) (test 98 U/L 40-150 code = 346) AST (SGOT) (BEAKER) (test code = 61 U/L 5-34 H 353) ALT (SGPT) (BEAKER) (test code = 65 U/L 6-55 H 347) Car Oiler ID - ROSA [id number] 06:55:31 Test Item Value Reference Range Interpretation Comments PHOSPHORUS (BEAKER) (test code = 3.8 mg/dL 2.3-4.7 604) Car Oiler ID - ROSA [id number] 06:55:30 Test Item Value Reference Range Interpretation Comments MAGNESIUM (BEAKER) (test code = 2.0 mg/dL 1.6-2.6 627) Car Oiler ID - ROSA LBASIC METABOLIC [id number] 06:55:29 Test Item Value Reference Range Interpretation Comments SODIUM (BEAKER) 134 meq/L 136-145 L (test code = 381) POTASSIUM (BEAKER) 4.3 meq/L 3.5-5.1 (test code = 379) CHLORIDE (BEAKER) 100 meq/L 98-107 (test code = 382) CO2 (BEAKER) (test 25 meq/L 22-29 code = 355) BLOOD UREA NITROGEN 8 mg/dL 7-21 (BEAKER) (test code = 354) CREATININE (BEAKER) 0.77 mg/dL 0.57-1.25 (test code = 358) GLUCOSE RANDOM 184 mg/dL 70-105 H (BEAKER) (test code = 652) CALCIUM (BEAKER) 8.4 mg/dL 8.4-10.2 (test code = 697) EGFR (BEAKER) (test 99 mL/min/1.73 ESTIMA KYLIE GFR IS code = 1092) sq m NOT ACCURATE CREATININE CLEARANCE IN PREDICTING GLOMERULAR FILTRATION RATE . ESTIMATED GFR I S NOT APPLICABLE FOR DIALYSIS PATIEN TS. Car Oiler ID - PIAYA LPROTHROMBIN TIME/[id number] 05:59:50 Test Item Value Reference Range Interpretation Comments PROTIME (BEAKER) 15.3 seconds 11.9-14.2 H (test code = 759) INR (BEAKER) (test 1.23 See_Comment [Automat ed message] code = 370) The system [employer] generated this result transmitted ref erence range: <=5.90. The reference range was not used to int erpret this result as normal/abnormal . RECOMMENDED COUMADIN/WARFARIN INR THERAPY RANGESSTANDARD DOSE: 2.0 - 3.0 Includes: PROPHYLAXIS for venous thrombosis, systemic embolization; TREATMENT for venous thrombosis and/or pulmonary embolus.HIGH RISK: Target INR is 2.5-3.5 for patients with mechanical heart valves.CBC (HEMOGRAM ONLY)2022-01-16 05:50:05 Test Item Value Reference Range Interpretation Comments WHITE BLOOD CELL COUNT (BEAKER) 10.0 K/ L 3.5-10.5 (test code = 775) RED BLOOD CELL COUNT (BEAKER) 3.11 M/ L 3.93-5.22 L (test code = 761) HEMOGLOBIN (BEAKER) (test code = 7.9 GM/DL 11.2-15.7 L 410) HEMATOCRIT (BEAKER) (test code = 26.3 % 34.1-44.9 L 411) MEAN CORPUSCULAR VOLUME (BEAKER) 84.6 fL 79.4-94.8 (test code = 753) MEAN CORPUSCULAR HEMOGLOBIN 25.4 pg 25.6-32.2 L (BEAKER) (test code = 751) MEAN CORPUSCULAR HEMOGLOBIN CONC 30.0 GM/DL 32.2-35.5 L (BEAKER) (test code = 752) RED CELL DISTRIBUTION WIDTH 19.8 % 11.7-14.4 H (BEAKER) (test code = 412) PLATELET COUNT (BEAKER) (test 284 K/CU MM 150-450 code = 756) MEAN PLATELET VOLUME (BEAKER) 9.3 fL 9.4-12.3 L (test code = 754) NUCLEATED RED BLOOD CELLS 0 /100 WBC 0-0 (BEAKER) (test code = 413) POCT-GLUCOSE [id number] 22:01:38 Test Item Value Reference Range Interpretation Comments POC-GLUCOSE METER 242 mg/dL 70-110 H : TESTED A T [facility] 6720 (BEAKER) (test code = [facility], 1538) 738[address]: Car Oiler/Techni giana ID = [id number] for ZEB MANZANARES POCT-GLUCOSE [id number] 16:23:12 Test Item Value Reference Range Interpretation Comments POC-GLUCOSE METER 169 mg/dL 70-110 H : TESTED A T [facility] 6720 (BEAKER) (test code = [facility], 1538) 58374: Car Oiler/Techni giana ID = [id number] for KAREY VU Tissue [id number] 12:39:56 Test Item Value Reference Interpretation Comments Range Case Report (test Surgical Pathology Report code = 104) Case: [id number] Authorizing Provider: Denzel Trinidad Jr., MD Collected: 01/08/2022 11:00 AM Ordering Location: [facility] Received: 01/08/2022 11:03 AM PERIOPERATIVE SERVICES Pathologist: Lanie Jones MD Specimen: Liver, EXTENDED RIGHT HEPATECTOMY DIAGNOSIS (test w3cftCTkLTPhl9eeSIPzeUTfKgHq code = 3220) MzNcZnRuYmpcdWMxIHtccnRmMVxl zZacJQWsLDrpgnIdXOOsxUCdO3Sl mvbyDUuwBJ4bLD0coXlubHUwtKVw THWoJpXul4bya534sECsf8pjPBWM eqldzZo2xCtaH00si4L9VldlL28u aLKkDUO6FKHpFUTnnIRmCWXoRUW6 DXXvgPGvV8peIZOfCK8jfpmzNNoi DAdaZBQhtVQ7DRTegLCsB8IwYIPa MYsxGUBzuhh1OqIzZl1doSQqzIlc MFxwYXJkXHBsYWluXGZzMjAgTElW XPUgWXDXMDTABNHUFOHZY2aYEJyI SPCJZVMCO87XMjJysWQmHLRjwlJy BBPzVRKxT1XihRFwFVLnY1NeA7ud e88sOVOxpDNusO66mJCtsAwhLZpv t3d8dRTinUTnvtCjnrBcyyGfwq2w vNNqMKZdUNPfq61dBK89AGZnjyDw YRusWOH7sK0vAQ1tGIV0jgQbMWMu OCBjbSBpbiBtYXhpbXVtIGRpbWVu v4plgzQqyBUnPW3ESRTypAvfkfZg lxXjuYOqTI0tsCvdFYxhbVAgV2gw ypPqgiHcevYtPPClplGlCd1kXC7c uTxslcPcC6qmQMWhwkKdok0mMMTj gbHgYA44POE7TMYexY6dRxOmgARl VXOadjUlbM5siGCtXBVgC5Zpt87s aDRmM1ykOQiplR2nRD5WzzBdaV1p lX67VBSgcTudbjHeutAgbIcaYGT2 G0FfkP14ODQtq91dhVRzwiRqDnht HFnzY54sEamjqYKfUEC2LKLkWNJ0 eMBdEO1oEWETQbRku9UbdR9wBRwc vlJuFQVjT9whrz80oyCctZu7QCKe i9ikn0UaGUv0EH4cvVSzOFF0QEE6 v3IqoeCxi8TdfoT6AkJgWWfuVSOi KRWmByegDZzznu2nsvffPrTtzrDl q44uvkOylCt1GWMnmpe3YL28nFPb GZSnEGZrDEF3jLRiPJFuivHupNLs sJXyc3DwxmP1BB0aUZI3hMAefpBg VP4tHBLpdeCec6XhphDqiRNiHV3W TNQsu5dvF6hzIBK8ZHkdQHLeOWAo joLpWDDsISiCXiFmUXH5YDV7fPua GTCphAglfeh6GMLGGH12KSHeRUVt YAMcMEMbst83BGL2QkBjf9J9OKQ6 ESXyWGTmu6igLORgpSVmInZsSfZf DzYnDqvxgDRrNOHmRoLtl6toq961 jGOfu8gdZBAmEaH9cWDaJPWpqBLw A897UGQsCLwxw9lgf0LhOZFjoEKa r9Q8EDZIasyfmSe6vKrbY03mk9K3 XveyU6jaUEGxKNCxZ8ZoPC1wYAHj Vds1JGL6AVB8KGJlBHOaR0KmVY9d BWHyxYZkCZi3z5aeqEgyDFNrEHF9 a0pxAReltdIuRI2hmw7omBd1v0op ohKwFNYxCPJskAKSQLTiX2FqeRfe Fd1eqGx9lHxsEoffHQQ4Rqh6MN6y yh83wpc6jBzbYVNsozabBuX6JClr NXKtuoyhMPu9AWvvKMEuaXW9YXWs kKUgX3RwGDKfRZ4vuqf4KCB0IYvv GOWcLvJ4UQMpsUWwJMLjsHmfGKdy z129SXW0AvZyCT0gO4Rmo4B4wY9p tKCtNRDhmNNeBcIrQJVuby8svDAz JXgvs9OwDZR5tnI2lUBwsPEbERAg YuI3ALilBZ1tuf50UZMcLSJ1fp3g aAMncKnlizXxrYDaOOmyH1UzZEOs o733ZIBzA9BuOJYzn6C6ejMiPhQl RYLdeZY1nwI6MFZpRI5vghrfd4ws CSlxVWdbEVUnqjA0sjB6MJDczQCc F0LjwB3uIHEpIH3bnjecf7nrLMB1 TNeaBAIgLYB9VvKyOAIeo5Hpkyt7 UaBoz2KbxSMdHMdvA33fd615REZg nxBsE2qxlAYuvyplvPEahsemPBld kkU0MVTuOJfxgmpgMJEtCNwsU9dr AqOeGMZpdPzlZZtiz3FvARJqSVCx FjGnaXCuOFGjGty1NVCjwECrTGAu WxEsN1aeozlhUyGZOENml9ngN5tl hQOKtAOkE5SuQKsnwgJhZExuFTab ITWqDBH3VU2fXRYuIKYdub98 SYNOPTIC REPORT HEPATOCELLULAR (test code = 5765) CARCINOMAHEPATOCELLULAR CARCINOMA: HEPATIC RESECTION (NOTE A) - A8 Edition - Protocol posted: 04/11/2021 SPECIMEN Procedure: Partial hepatectomy, major (3 segments or more) TUMOR Histologic Type: Hepatocellular carcinoma Histologic Type Comment: Steatotic type Histologic Grade: G2, moderately differentiated Tumor Focality: Solitary TUMOR CHARACTERISTICS: Tumor Identification: 1 Tumor Site: Right lobe Tumor Size: Greatest dimension of viable tumor (Centimeters): 5.8 cm Treatment Effect: No known presurgical therapy Tumor Extent: Confined to liver Vascular Invasion: Not identified Perineural Invasion: Not identified MARGINS Margin Status: All margins negative for invasive carcinoma Closest Margin(s) to Invasive Carcinoma: Parenchymal Distance from Invasive Carcinoma to Closest Margin: 3 mm REGIONAL LYMPH NODES Regional Lymph Node Status: Not applicable (no regional lymph nodes submitted or found) DISTANT METASTASIS PATHOLOGIC STAGE CLASSIFICATION (pTNM, AJCC 8th Edition) Reporting of pT, pN, and (when applicable) pM categories is based on information available to the pathologist at the time the report is issued. As per the AJCC (Chapter 1, 8th Ed.) it is the managing physician s responsibility to establish the final pathologic stage based upon all pertinent information, including but potentially not limited to this pathology report. pT Category: pT3 pN Category: pN not assigned (no nodes submitted or found) ADDITIONAL FINDINGS Additional Findings: Fibrosis: portal, grade 1 Additional Findings: Steatosis CPT Code(s) (test r8irdNKlLRRxeUX9BbTkCVHir3ye code = 3357) d6CucBWngJVmMUvdlPOkciUmky46 zIH5qO94GO4vSYTsOdI7JHJvnmB0 Pgf7MFNaNLXlvMUjL448f7tan4kf ahEkaDD6oKuvLQNemdtgStI3WYyc XTXmfqvrKOh1OAcnQRBprMM2EVFg iOUuQ9PoRQLbFS3wzmz2DAK3JVzy ZMKtLjG1DUJuhGApBZTopOptSBlx b356QPM4VjEeVAQgotTttIwdeS9m PnCxXNL7XSPeZCf3DZDpI9n5CDd0 MzQyXHBhcn0= CLINICAL HISTORY y2qxaYZzKEMssAY1MlQnDQOjl7nw (test code = 3356) w4SzpNIzsDEnXNbsuJWobuFbnt10 wLC8tJ48LA7fFQBjRoJ5DKCocoO3 Byf9MSHdANPccKBtG168h1vgs4hc luWrdFG4ORHyAUYeA9TfPF2qBRGy vEBnT05zxDOuDFX6EZBtBXQngUTg MUEgZXB0QJXxmBKzJ8qkGMYfLI4r kcfpUTgbROvuFPFfxWB6XVFntABi D1ErUJSwWCulNHSsodc1JvQyIi0e dGVyeTcyMFxwYXJkXHJpMVxwbGFp blxmczIwXGNmMSBMaXZlciBsZXNp y77nCYWncd7= SPECIMEN SOURCE r2zjwKKaHZKmlVM6ZaLsVASef3eo (test code = 3377) x5NerZGrmRPjBXkpeZLcsnReaz61 oHG7wK83KY8yQWNwHnR8FXNyawL3 Ycc5CWUqYXHaiIDeE859f1lbr5he jnJtkMM8UYWaXWMoA6ZmYH3oXKTa zGVhO6kuJVQjPPJoT8WwLZ0nUBEt Xqv0MYP1SXs2WZNorMDsntGqPgRt DKRolJQabYJ0NZPgWR8ukekaNOwu VWhtAADrlcR8ZFZsqDXcC5KqSOKh JS1ljlqyTKJ4RNwnWWEuQMH4XbVk UGMwp6Serns6RvLybAFeTHmplTQq yKiljK1mDuSgPFgfUtLgE3mpYbCe eIXmXMt6TMDfmTDlcR== SPECIAL STUDIES u1vciDVxMPCai0njIOEqxNCmSoIh (test code = 3376) MzNcZnRuYmpcdWMxIHtccnRmMVxz m5BhJ2ZlThRnRYubvaSbRKVmTnin fsycKIVpOMA3fcUbRLSkGKodBLFu DNkbFp9sgMWedPrnJaQlMKQnz7kw wxHMitzhjQp7n4ttVUMiXsN7rUTy GIwrE2cuvfXfcREiP9HvlRJerRn5 y1tyTnZdJlH8jYUmJZgmF6halpNc jOHoZEBhXJm7nW10RGQjcK8txFEf IKauocBhQmH0IFhcFJDnDyO7TSTk bXJoTSNoJ7dqFXMuLHgdKSYrXRth gJRbLIQ9lExnw2C5nJEklTErmWxo IbKbNtJqHzVKi3HzFRc1xKzoT6Lk BCQoRzX8tQDcKDDvHEoxMUYvLKCq rmA8zOjrslGtw17aaIWqDEEnVRDc LrZzwGbjVFJtMDSXc6PvzXrlTGK7 aRp2pBnjAjodMGA9Bzj1JD5jhl83 eia3pQzuWKIjlogiKxP0BDktOEFv dvolGRo5UWglILKvkIP8HRAhbYVd S1RmMZGkHN3eosl9KBX9SUcdQMKf UyW1XOXbmZDzWFMdpJejRMdvb636 KAV9IdEmOB7aG8Kfi7P7bI6nmBXd IOGjxIZzDwXoIBMhnl3lnNLeUTjj n4NeVVV4lhR7qWXffBWzWALjFR67 Fljai6PvLfuxc4DvS54ooFT4TTzc x0itQB3wThQ1uzHmCIxzi4sjjN7h LsJ4ASxpQN4dXO4aPPSfaQ5tiiml KIAqJfWydgapVOOifRuvquIvPh5v yIywVWW3XOgaW7hwaL0bTrV2TZei S3tvsG9fZZd7RKrcgAN5GTGxyA0l IK4pykzri7ghASvuEPouISUkeoD8 qeA1OCNooNFfS0NkgS8bKSVaLX1i qnhmm1byEOG1HJbfDVPwNTB3VnRs WPCgw3Objpt2YkJje7FmlWYpWHiy M72qh127FZOxdiIvA8gxlFOyzjtt eWFvecxgTVtoklO6SOZjSSTfSQso XGYxXGZzMjJcbGFuZzEwMzNcaGlj yKatJTqyOnHrMLSmBMxaJ2xgYyBt R1NtVULaXbMqYDadBKouwXVwfHRp qVP5uB6lNN4vRLRvnTXdP1WjNPFv gnTyuVByZKK4cTAycQRmLS2kFZjd oYAgw7gma4HvY3mgbBuapYW9EA3o AAZqVMPmMDthd0HeaR5zSifflEXp blxmMVxmczIyXGxhbmcxMDMzXGhp L8ffUvWrESRylMboOQnme8IhAEPc PPZvLgyfyaTuMTd2iuAxXZWmqgjl RRLprGznzA1zCmQtTaWgTkrnSV4z XIWuC6sqnIQpLUKmWBPjZ2veYoUm kQ6tmSspXRulMkFpTcEdUyBSn418 so8jZHImkAGcjmKThZBlqH4tXSyo QAvbQDdreBOcAQktc5psGOIyt9z4 zOWeYDAhkpJyz7pyIOfsxoBxLQJt nOVoaPEtMDHdl07gPWqjxAquuCnv JBNaj1MuaDqfc2KcLnKqGHsax0Dq L19taECbaCVnvNztVNPegyErXQEd b23kq7axJKLqLnJ8rVTkrCT8wHBh vNEyj0TbeYvjHTYbm8kiPLNycf1f pykusZQek2IipU4gvhrjHZacgXTe kxVgWEQgm0z7hNGeJUGvWUOnFKrm wPc1BTLqo028cy8sgiX5vZZnUVW2 YWlsYWJsZSBhcmUgZXZhbHVhdGVk XHBsYWluXGYxXGZzMjJcbGFuZzEw MzNcaGljaFxmMVxkYmNoXGYxXGxv V5wbSsOcQ4AxJGPrNmJdjRNhI0ev cGFyXHBsYWluXGYxXGZzMjJcbGFu ZzEwMzNcaGljaFxmMVxkYmNoXGYx QPnrT9ziEtBbE9ByXYOvFxCcBPqs bGFpblxmMVxmczIyXGxhbmcxMDMz OThtN3utTaLlEGCxuAjjKGlth9Ar KZEvEQEzTtdlexPiKYb7atAwHXNt clxwbGFpblxmMVxmczIyXGxhbmcx IPApHGmmQ2vgLuXpMZXnlVbqRHep y4ZiQXIsKRZqHgtzeeTeLKbfdWOc h5exo4BqB7cpjGacjOO2JQDdZ5fp dTRoxXH1OXM4qU6fIXdryiKiMDVo a8YfQAJeSETnVmO1oI5vGWP2YxFG dWtlXHBsYWluXGYxXGZzMjJcbGFu ZzEwMzNcaGljaFxmMVxkYmNoXGYx QQrbL3gwUeLaV8PnVPLqViWgoOwa XTqnFLz2BmarpHZjkzutXXglvfPe GPmabuesOHHsQMvwL1vzLdNeQMTk uKsmHMahe3LkVNVhMCEiTgoxjyYd TCFvGYLyeCTsbLIIOI33JNXkLANf iFgscA1gfSDPIDSetcD7h4F5XLjb JDLmUFn9XIdnxjLjTJXmvY7bCWNy TM8wVRy5mpVpMIOxm1EsYL5rDQCb kMBhEYV9GXHya2IzB8Dhg7TtJABu XEMzei4nujEiUfUOmFLjKEXjlx75 JOCwHJ4bO7vqRYIrIHYqysZifVPl i5WpNIOewVN8tUUmOK2DJxTXu84r JYFmTLTRyyPpGJIfyXbjhVM1rkY0 yQ1bSrHFoROdKuFLCRoanuHhFWKc wm5yjsRwDIBaKBHpe5UasOQsoUYc uvDyJ8Qad1McQBDtec26KEwdyFPb aw15FN7yR9Svy6AurU8sGXcsYPKx y9MzeLPbcLLkHXLfg4BrB8futpkq OMcqvTZcsZ9wHBQuYTz0JGBqt2Rt ZPFfi3BrYmJdchMbSPVoMJSaXDIy uP14HLP9lBvlbYiysiLkER8jBARs aiLrDKVyHKFrtI8bYLgyssIaRLBj jqQ2i2H1FEvkMDWvlsLpWnmeNGM8 wkQbjiA4cFUzJ1kuhbdgTWvbJYCg w2OqaN3nkWPYuOTit2GmxHFzwPXT cEZiNP9yxvUoSX8vMHQ5BMtzTKVN XRJsIJypWNFwJHT5ISllIwwmCPF8 lbLoIEUil0VfTIkyU8zwS97dnBto iQo4kXHidHakkDPhtZRuEBBobtZ3 a4T6OTXld8KatssxLBFnOLdkIHBr XGZzMjJcbGFuZzEwMzNcaGljaFxm CethAqDwLXRhJSqmB8wvYoRlAaNb LzkhLGE8lU== INTRAOPERATIVE n7lnjYEhMKVzrEI0GwYsWBDjo1ud CONSULTATION (test a6OxlUPlbAPyADeacCZjpaUxaj34 code = 336) iQN1pU51RO3qDBMuKjP5IZYesoT0 Ptw9UTSmRAMspDLhU011t6kfb5ht aeZuyGL5bVqjUJZwicntLkT8UPvb PGHtziwrWKs3RBzlRGUhcFlhKRko YXJncjcyMFxtYXJndDcyMFxtYXJn LcqlXJmdVRNnFDE2KLjhk701ZMS2 OSuaN9rjpU3pPiW6FEpjC2xmmV3j UUq5UCxcQTLpkDG0wbfpRUemCTAp ylY5ztufONetJFMidCT2ebyhJLhk VUEwAoJ9acpfABdbUEBqYJJyOEhk VRPoSnFeQOaDIJ5IUGRlSjeBYNSe PCREWPAYA9PMDSt1MCbyzoOfNTcN QCjfDDmBIeBZSO2YHDANLACrWYTP QO5OZFUXRTTKIkEIBeBOEAUQCX2Y AnJxqIncJGHuCOFNWp7ITC9NMWNZ UJXfTI8DBTROGDegInWFLMUMKJFJ EAUJXnERPVmBHCYLSRFBUR4vlKdq ZSAtUkVTVUxUUyBSRVBPUlRFRCBC VXAXDwGIHFkGWPKPJLKASOhEG2Tk J93eNj7qFA6aZGQqLXLUCCVwTxQo IJ4oiDVanB== GROSS DESCRIPTION t0hvkEJdHNJdhOC9DaBsYLTxz0kx (test code = 3366) v5UexBWooJAhPDxweHCpivWkhs19 qFF6wQ45JX7aEKFtPqZ6RBAwcoK7 Twt8QGYpVMNakNTlI665q6cro7ed jqPwhYL8fSriVYZqyggwZzY6HTtp TTYylehuWCi7YSpjFXBzxDyxDWsz YXJncjcyMFxtYXJndDcyMFxtYXJn ApwqNZqqHPYdKBB7ALiio936RCT7 CRhdQ5aeaT6kBeN1XAorL8yvxA4n SBh3WXuqUVHqzYH0bpyuEHjhKPRj ajJ9byydMEfgPCIraAM3yqkaWDei MCNaOuX1xrarJZsaVVVdDJNxRAwk YHYiQdCcMR3tVWAmE0WntiToQCSi BBBdRGTqokJkmu11KG6tj3CaqYkm biBhbmFseXNpcyBsYWJlbGVkIHdp tWhsbNxgMRTtrUeqmbYhnjTpSX5w JSXsO3Bbz4Qja64tzuNjIqUqLQHi TKCuTGc3ME7oYTZuasqbjYBapIRf MCNdI4OmpQlgFUbkWHAfFGJ3NEHi WZKdDA3xIRglSJCzJIY0TEkeOFRj eDElGBP8xVOaTSaphTF9AMY6z062 JjOsEHzxWRIqcLY7fROyyIPbmUJi XMVohX5nmOblPMczbRHjrPZpdzSp NLimlHksdQAjNUZ5ToSpeSS8GuDd A86gtSwum0SbQ35ibxXqOYbcL5Ne hQVorVu3QHU4D8drpmXzIEVbAZOd HRGoy1BnlHVvwFPgPVKmmsRjNVG9 zBX7TAyvUAKaRlJlhVYgfa6lYXMw JRBcTWDwR5Huu77ltYHlN4vhNlDo W7GabKzejlbcMxXdGSVcEEjnQBMu IP18ZAfhFR09YCffTw75ZXYiXVRl qr26MMyvb5qdUW1sYIEuWVZeYSE9 oPlbvyjnPIYoS5Rtq7CvSLGjVCQs GCToSJonrKxqu7Yyog50buDauekq Deztsa4bwZVlpEwsjNNbrtMqXyQ7 nZajChK2nRQoO0Veo7FcYIbbW0Cf q5WnlSHoyNCrQNHjSPFyOMwlow1d qjOnx0Bgix16fvMwalcyqmZjR8Jl YKF4plGmVTmuSKAyKdXjaJDpjh4l EZSnMCC0QOMgjDiyiqLdCDXtkZ9p VMwyRSLnWwEfaHQsmw9gPVKjXTTu CAScL2Weu62jgGOcE0xhYVMynnOi SM77PIXxOYFwe72dxMbmFGLwc4Np WyrmXXWzbUTyBTSrjEEbAQHlsL5a RSXBSVQpsMDvt5UrgDC7mXGlGBFn T1Kio30wb5JedUgtAJ6fx0HngAZn IB95qQGxbSfnYvTcjaOvFSAdKTNb IEZTLiAgQSBzZWNvbmQgcmVwcmVz QF75XRLjzlZzn6KnlHcyfwQyGjV8 hSFudMVzfhI1ecMnoF7yGSP2LPJi t4IwdCkvrwCkRFGrcL8dnFRwDW30 aXJlbHkgZnJvemVuIGFzIEEyIEZT BeFkQVvmTYYtrJPylxfgQsS5uuay cv8jabStTHtmrpCjXSGcmzPdL7x3 fOKuqHLneAYeVEDjm0rzLTHiAQFv JIHmpk6xOR0jy5NfFaIsLt0rc1Lq MZRcHHrbM1JtcJIpiTTkbH9rfrOc hrFvH7Urz2DplJAqrGPnWTSeBHAu DV8iZTQbV3Nut7PzxFrpvY6xnwAm aGBlxoF7HDpquf6fHUBkaRYwp7Pb rGR4qOMgSWFgO0Qje52rWJXvFCBo mCTwkZH9HPQuJYZjMr3zlD19yvxg sJAhUPIalqrgDYFbFY1gFDVpWDIe uAGoPRIxa7ZnnYftgjGrKFWxdX79 IEJsYWNrXHBhciBDYXBzdWxlOiBP tjWqM0HqzNHcOGRtx0Ehc6CzgaAt L7LsYLKhcWOhM0rpKgLUsPKoHLGa spqsKANpU3CktGcayqKwb3DkKDWb ycZZYARIVnnnRGCkyeF9mgE1thjy zk9bfnOcOGqmphZtHURphqNXQoFA JncrSVZvbcU0bsXiNZMeD1Ybp12b uEVhS9jmJUGsbfJQBg9GKQukCNSi vwY6ftN2YSNzcAtviaLeZLRubZ2n sERbDEC6JWC6EzKXLTJowYoskaSl thSlUocoIIOvyGX1LT3vdgsqywHu CO1vAlBaHTgaYKLwOXyqZYWoTtwp KFKgclA6fwKoNGPqP8Ded94soYKv O0pfMCFzybDSITNnNZBnENN3FV0a x1XkrA8xO9Kaf7UdIUSawyFzjjAi ARQ6oQ0xCR4gfocopmgfLRFbHMHs TF1FKKG0SbHOVPHsNYJhTHZpmGM5 bGVccGFyIEEgMTctQSAyMTogTWFz haI5woK2gbxcpi0xasLeXFvdxyUg IYYrkrZOHOHgCvYKjvuijw3geeAs IGxpdmVyXHBhclxwYXIgUGlsYXIg QXJndWVsbGVzLCBQQSwgSFQgKEFT A4SjKTEybs5= [facility] [id number] 12:39:56Surgical Pathology Report Case: [id number] Authorizing Provider: Denzel Trinidad Jr., MD Collected: 01/08/2022 11:00 AM Ordering Location: [facility] Received: 01/08/2022 11:03 AM PERIOPERATIVE SERVICES Pathologist: Lanie Jones MD Specimen: Liver, EXTENDED RIGHT HEPATECTOMY LIVER, EXTENDED RIGHT HEPATECTOMY: - Hepatocellular carcinoma, steatotic type, with extensive necrosis, see comment- The tumor measures 5.8 cm in maximum dimension -Vascular and parenchymal margins are negative for malignancy (carcinoma present at 3 mm from parenchymal resection margin)-No lymphovascular or bile duct invasion identified, confirmed by elastic and CD31 stains-Background liver shows extensive steatosis (over 66%, grade 2/3), involving predominantly perivenular areas, with portal fibrosis ; no evidence of cirrhosis -Pathologic stage and grade (AJCC 2019, 8th edition): pT Nx, garde 2 Signing Pathologist Direct Phone Line: [phone] signed by Lanie Jones MD on 01/15/2022 at 12:39 PMHEPATOCELLULAR CARCINOMAHEPATOCELLULAR CARCINOMA: HEPATIC RESECTION (NOTE A) - A8th Edition - Protocol posted: 04/11/2021PECIMEN Procedure: Partial hepatectomy, major (3 segments or more) TUMOR Histologic Type: Hepatocellular carcinoma Histologic Type Comment: Steatotic type HistologicGrade: G2, moderately differentiated Tumor Focality: Solitary TUMOR CHARACTERISTICS: Tumor Identification: 1 Tumor Site: Right lobe Tumor Size: Greatest dimension of viable tumor (Centimeters): 5.8 cm Treatment Effect: No known presurgical therapy Tumor Extent: Confined to liver Vascular Invasion: Notidentified Perineural Invasion: Not identified MARGINS Margin Status: All margins negative for invasive carcinoma Closest Margin(s) to Invasive Carcinoma: Parenchymal Distance from Invasive Carcinoma to Closest Margin: 3 mmREGIONAL LYMPH NODES Regional Lymph Node Status: Not applicable (no regional lymph nodes submitted or found) DISTANT METASTASISPATHOLOGIC STAGE CLASSIFICATION (pTNM, AJCC 8th Edition) Reporting of pT, pN, and (when applicable) pM categories is based on information available to thepathologist at the time the report is issued. As per the AJCC (Chapter 1, 8th Ed.) it is the managing physician's responsibility to establish the final pathologic stage based upon all pertinent information, including but potentially not limited to this pathology report. pT Category: pT3 pN Category: pN not assigned (no nodes submitted or found) ADDITIONAL FINDINGS Additional Findings: Fibrosis: portal, grade 1 Additional Findings: Steatosis 79088,[id number] lesion LiverThe interpretation of this case included the use of immunohistochemistry or special stains.Control Slides Examined: In-house known positive controls were evaluated along with the test tissue. These control slides run alongside of the patients sample show appropriate staining. Internal positive and negative controls when available are evaluated Immunohistochemistry technical testing was performed at [facility], Pathology Laboratory where it was developed and its performance characteristics were determined. It has not been cleared or approved by the U.S. Food and Drug Administration. The FDA has determined that such clearance or approval is not necessary. The test is used for clinical purposes. It should not be regarded as investigational or for research. This laboratory is certified under the Clinical Laboratory Improvement Amendments of 1988 (CLIA-88) as qualified to perform high complexity clinical laboratory testing.EXTENDED RIGHT HEPATECTOMY:-WELL DIFFERENTIATED LESION, DEFER TO PERMANENT-APPROXIMATELY 3 MM AWAY FROM POSTAL SERVICE CLERK MARGIN-RESULTS REPORTED BY DR THAPA TO DR TRINIDAD ON 01/08/2022 AT 11:30AMA. Received fresh for frozen section analysis labeled with the patient's name, accession number and "extended right hepatectomy" is a 1575 g, 20.0 x 16.0 x 8.0 cm partial hepatectomy. The capsule is tran, smooth, intact and displays a 5.5 x 4.0 cm hypopigmented, centrally puckered area at segments 4 and 8 that is 0.3 cm from the resection margin. Sectioning reveals a 5.8 x 4.8 x 2.6 cm tran-yellow, nodular, bulging, encapsulated mass with surrounding fibrosis that is abutting the capsule, grossly appears to involve surrounding vasculature, is 0.3 cm from the vascular margin, is 0.3 cm from the resection margin, and 0.4 cm from the possible bile duct margin. A front office representative section of the mass is entirely frozen as A1 FS. A second front office representative section of the mass to closest resection margin is entirely frozen as A2 FS. The remaining uninvolved liver parenchyma is tran-brown and heterogeneous. No other discrete lesions are grossly appreciated. A gross photograph is taken. Multifocal Button Grinder se ctions are submitted as follows:Ink codeResection margin: BlackCapsule: OrangeClosest vascular margin: BlueSection codeA1 FS: Mass to uninvolved liverA2 FS: Mass to resection marginA3-A5: Mass to vascular marginA6-A7: Vascular and bile duct margins en faceA8-A 12: Mass to resection marginA 13-A 14: Mass to capsule and resection marginA 15-A 16: Mass to capsuleA 17-A 21: Mass to uninvolved liverA 22: Uninvolved liverPilar TONO Lester, HT (ASCP)POCT-GLUCOSE [id number] 11:51:02 Test Item Value Reference Range Interpretation Comments POC-GLUCOSE METER 163 mg/dL 70-110 H : TESTED A T [facility] 6720 (BEAKER) (test code = [facility], 1538) [id number]: Car Oiler/Techni giana ID = [id number] for KAREY VU POCT-GLUCOSE [id number] 08:10:34 Test Item Value Reference Range Interpretation Comments POC-GLUCOSE METER 104 mg/dL 70-110 : TESTED A T [facility] 6720 (BEAKER) (test code = [facility], 1538) 82272: Car Oiler/Techni giana ID = [id number] for KAREY VU [id number] 04:49:32 Test Item Value Reference Range Interpretation Comments PHOSPHORUS (BEAKER) (test code = 4.0 mg/dL 2.3-4.7 604) Car Oiler ID - DBHEPATIC FUNCTION [id number] 04:49:32 Test Item Value Reference Range Interpretation Comments TOTAL PROTEIN (BEAKER) (test code = 5.6 gm/dL 6.0-8.3 L 770) ALBUMIN (BEAKER) (test code = 1145) 3.1 g/dL 3.5-5.0 L BILIRUBIN TOTAL (BEAKER) (test code 1.8 mg/dL 0.2-1.2 H = 377) BILIRUBIN DIRECT (BEAKER) (test 1.3 mg/dL 0.1-0.5 H code = 706) ALKALINE PHOSPHATASE (BEAKER) (test 86 U/L 40-150 code = 346) AST (SGOT) (BEAKER) (test code = 53 U/L 5-34 H 353) ALT (SGPT) (BEAKER) (test code = 79 U/L 6-55 H 347) Car Oiler ID - DBBASIC METABOLIC [id number] 04:49:31 Test Item Value Reference Range Interpretation Comments SODIUM (BEAKER) 136 meq/L 136-145 (test code = 381) POTASSIUM (BEAKER) 4.1 meq/L 3.5-5.1 (test code = 379) CHLORIDE (BEAKER) 101 meq/L 98-107 (test code = 382) CO2 (BEAKER) (test 28 meq/L 22-29 code = 355) BLOOD UREA NITROGEN 6 mg/dL 7-21 L (BEAKER) (test code = 354) CREATININE (BEAKER) 0.77 mg/dL 0.57-1.25 (test code = 358) GLUCOSE RANDOM 146 mg/dL 70-105 H (BEAKER) (test code = 652) CALCIUM (BEAKER) 8.5 mg/dL 8.4-10.2 (test code = 697) EGFR (BEAKER) (test 99 mL/min/1.73 ESTIMA KYLIE GFR IS code = 1092) sq m NOT ACCURATE CREATININE CLEARANCE IN PREDICTING GLOMERULAR FILTRATION RATE . ESTIMATED GFR I S NOT APPLICABLE FOR DIALYSIS PATIEN TS. Car Oiler ID - [id number] 04:49:31 Test Item Value Reference Range Interpretation Comments MAGNESIUM (BEAKER) (test code = 2.1 mg/dL 1.6-2.6 627) Car Oiler ID - [id number] 04:42:29 Test Item Value Reference Range Interpretation Comments PROTIME (BEAKER) 15.1 seconds 11.9-14.2 H (test code = 759) INR (BEAKER) (test 1.21 See_Comment [Automat ed message] code = 370) The system [employer] generated this result transmitted ref erence range: <=5.90. The reference range was not used to int erpret this result as normal/abnormal . RECOMMENDED COUMADIN/WARFARIN INR THERAPY RANGESSTANDARD DOSE: 2.0 - 3.0 Includes: PROPHYLAXIS for venous thrombosis, systemic embolization; TREATMENT for venous thrombosis and/or pulmonary embolus.HIGH RISK: Target INR is 2.5-3.5 for patients with mechanical heart valves.CBC (HEMOGRAM ONLY)2022-01-15 04:23:00 Test Item Value Reference Range Interpretation Comments WHITE BLOOD CELL COUNT (BEAKER) 12.8 K/ L 3.5-10.5 H (test code = 775) RED BLOOD CELL COUNT (BEAKER) 3.19 M/ L 3.93-5.22 L (test code = 761) HEMOGLOBIN (BEAKER) (test code = 8.0 GM/DL 11.2-15.7 L 410) HEMATOCRIT (BEAKER) (test code = 27.2 % 34.1-44.9 L 411) MEAN CORPUSCULAR VOLUME (BEAKER) 85.3 fL 79.4-94.8 (test code = 753) MEAN CORPUSCULAR HEMOGLOBIN 25.1 pg 25.6-32.2 L (BEAKER) (test code = 751) MEAN CORPUSCULAR HEMOGLOBIN CONC 29.4 GM/DL 32.2-35.5 L (BEAKER) (test code = 752) RED CELL DISTRIBUTION WIDTH 19.5 % 11.7-14.4 H (BEAKER) (test code = 412) PLATELET COUNT (BEAKER) (test 305 K/CU MM 150-450 code = 756) MEAN PLATELET VOLUME (BEAKER) 8.9 fL 9.4-12.3 L (test code = 754) NUCLEATED RED BLOOD CELLS 0 /100 WBC 0-0 (BEAKER) (test code = 413) POCT-GLUCOSE [id number] 21:37:34 Test Item Value Reference Range Interpretation Comments POC-GLUCOSE METER 224 mg/dL 70-110 H : TESTED A T [facility] 6720 (BEAKER) (test code = [facility] [place], 1538) 45974: Car Oiler/Techni giana ID = [id number] for ZEB MANZANARES POCT-GLUCOSE [id number] 16:19:04 Test Item Value Reference Range Interpretation Comments POC-GLUCOSE METER 190 mg/dL 70-110 H : TESTED A T [facility] 6720 (BEAKER) (test code = [facility], 1538) 17181: Car Oiler/Techni giana ID = [id number] for Breonna Odell URINALYSIS W/ REFLEX URINE [id number] 12:18:07 Test Item Value Reference Range Interpretation Comments COLOR (BEAKER) (test code = 470) Yellow CLARITY (BEAKER) (test code = 469) Clear SPECIFIC GRAVITY UA (BEAKER) (test 1.009 1.001-1.035 code = 468) PH UA (BEAKER) (test code = 467) 7.0 5.0-8.0 PROTEIN UA (BEAKER) (test code = Negative Negative 464) GLUCOSE UA (BEAKER) (test code = 30 mg/dL Negative A 365) KETONES UA (BEAKER) (test code = Negative Negative 371) BILIRUBIN UA (BEAKER) (test code = Negative Negative 462) BLOOD UA (BEAKER) (test code = Negative Negative 461) NITRITE UA (BEAKER) (test code = Negative Negative 465) LEUKOCYTE ESTERASE UA (BEAKER) Negative Negative (test code = 466) UROBILINOGEN UA (BEAKER) (test 3.0 mg/dL 0.2-1.0 H code = 463) RBC UA (BEAKER) (test code = 519) 0 /HPF WBC UA (BEAKER) (test code = 520) 0 /HPF BACTERIA (BEAKER) (test code = None Seen 517) SQUAMOUS EPITHELIAL (BEAKER) (test < /HPF code = 516) CRYSTALS, URINE (BEAKER) (test Occasional code = 1521) AMORPHOUS CRYSTALS (BEAKER) (test Rare code = 1584) SOURCE(BEAKER) (test code = 2795) Car Oiler ID - [auto]Car Oiler ID - techPOCT-GLUCOSE [id number] 11:59:51 Test Item Value Reference Range Interpretation Comments POC-GLUCOSE METER 193 mg/dL 70-110 H : TESTED A T [facility] 6720 (BEAKER) (test code = [facility], 1538) 75306: Car Oiler/Techni giana ID = [id number] for Da Breonna qiu POCT-GLUCOSE [id number] 08:09:16 Test Item Value Reference Range Interpretation Comments POC-GLUCOSE METER 174 mg/dL 70-110 H : TESTED A T [facility] 6720 (BEAKER) (test code = [facility], 1538) 56948: Car Oiler/Techni giana ID = [id number] for Da uyen, Ravi RAD, CHEST, 1 VIEW, NON [id number] 07:47:00REFERRING : DI COTTON MD....[id number] for exam:->[facility]ness [facility] breath [facility] : 1975 Sex: FFINAL REPORT CLINICAL HISTORY: Shortness of breath TECHNIQUE: 1 view of the chest. COMPARISON: 01/12/2022 IMPRESSION: The right central line has been removed. Bilateral lower lung predominant airspace opacities and layering pleural effusions are grossly unchanged. The cardiomediastinal silhouette is magnified by technique. Signed: Julissa Dowling MDRepsaint louis university [facility] Verified Date/Time: 207:47:28 Reading Location: [facility] Radiology Reading Room HEPATIC FUNCTION [id number] 07:35:03 Test Item Value Reference Range Interpretation Comments TOTAL PROTEIN (BEAKER) 5.7 gm/dL 6.0-8.3 L Speci men slightly (test code = 770) hemolyzed ALBUMIN (BEAKER) (test 3.0 g/dL 3.5-5.0 L Speci men slightly code = 1145) hemolyzed BILIRUBIN TOTAL 1.9 mg/dL 0.2-1.2 H Specimen sli ghtly (BEAKER) (test code = hemoly zed 377) BILIRUBIN DIRECT 0.8 mg/dL 0.1-0.5 H Specimen sl ightly (BEAKER) (test code = hemoly zed 706) ALKALINE PHOSPHATASE 84 U/L 40-150 (BEAKER) (test code = 346) AST (SGOT) (BEAKER) 70 U/L 5-34 H Specimen slightly (test code = 353) hemolyzed ALT (SGPT) (BEAKER) 107 U/L 6-55 H Specimen slightly (test code = 347) hemolyzed Car Oiler ID - [id number] 07:35:02 Test Item Value Reference Range Interpretation Comments PHOSPHORUS (BEAKER) 3.3 mg/dL 2.3-4.7 Specimen slightly (test code = 604) hemolyzed Car Oiler ID - aahamidBASIC METABOLIC [id number] 07:35:02 Test Item Value Reference Range Interpretation Comments SODIUM (BEAKER) 138 meq/L 136-145 (test code = 381) POTASSIUM (BEAKER) 4.5 meq/L 3.5-5.1 Specimen slightly (test code = 379) hemolyzed CHLORIDE (BEAKER) 103 meq/L 98-107 (test code = 382) CO2 (BEAKER) (test 28 meq/L 22-29 code = 355) BLOOD UREA NITROGEN 6 mg/dL 7-21 L (BEAKER) (test code = 354) CREATININE (BEAKER) 0.76 mg/dL 0.57-1.25 Specimen slightly (test code = 358) hemolyzed GLUCOSE RANDOM 203 mg/dL 70-105 H (BEAKER) (test code = 652) CALCIUM (BEAKER) 8.2 mg/dL 8.4-10.2 L (test code = 697) EGFR (BEAKER) (test 100 mL/min/1.73 ESTIM ATED GFR IS code = 1092) sq m NOT ACCURATE CREATININE CLEARANCE IN PREDICTING GLOMERULAR FILTRATION RATE . ESTIMATED GFR I S NOT APPLICABLE FOR DIALYSIS PATIEN TS. Car Oiler ID - nwguclbTHOUJJKBG7129-23-76 07:35:01 Test Item Value Reference Range Interpretation Comments MAGNESIUM (BEAKER) 2.2 mg/dL 1.6-2.6 Specimen slightly (test code = 627) hemolyzed Car Oiler ID - aahamidPROTHROMBIN TIME/[id number] 07:22:37 Test Item Value Reference Range Interpretation Comments PROTIME (BEAKER) 15.9 seconds 11.9-14.2 H (test code = 759) INR (BEAKER) (test 1.29 See_Comment [Automat ed message] code = 370) The system [employer] generated this result transmitted ref erence range: <=5.90. The reference range was not used to int erpret this result as normal/abnormal . RECOMMENDED COUMADIN/WARFARIN INR THERAPY RANGESSTANDARD DOSE: 2.0 - 3.0 Includes: PROPHYLAXIS for venous thrombosis, systemic embolization; TREATMENT for venous thrombosis and/or pulmonary embolus.HIGH RISK: Target INR is 2.5-3.5 for patients with mechanical heart valves.CBC (HEMOGRAM ONLY)2022-01-14 07:00:10 Test Item Value Reference Range Interpretation Comments WHITE BLOOD CELL COUNT (BEAKER) 11.7 K/ L 3.5-10.5 H (test code = 775) RED BLOOD CELL COUNT (BEAKER) 3.33 M/ L 3.93-5.22 L (test code = 761) HEMOGLOBIN (BEAKER) (test code = 8.5 GM/DL 11.2-15.7 L 410) HEMATOCRIT (BEAKER) (test code = 28.2 % 34.1-44.9 L 411) MEAN CORPUSCULAR VOLUME (BEAKER) 84.7 fL 79.4-94.8 (test code = 753) MEAN CORPUSCULAR HEMOGLOBIN 25.5 pg 25.6-32.2 L (BEAKER) (test code = 751) MEAN CORPUSCULAR HEMOGLOBIN CONC 30.1 GM/DL 32.2-35.5 L (BEAKER) (test code = 752) RED CELL DISTRIBUTION WIDTH 19.4 % 11.7-14.4 H (BEAKER) (test code = 412) PLATELET COUNT (BEAKER) (test 295 K/CU MM 150-450 code = 756) MEAN PLATELET VOLUME (BEAKER) 9.1 fL 9.4-12.3 L (test code = 754) NUCLEATED RED BLOOD CELLS 0 /100 WBC 0-0 (BEAKER) (test code = 413) POCT-GLUCOSE [id number] 21:12:56 Test Item Value Reference Range Interpretation Comments POC-GLUCOSE METER 224 mg/dL 70-110 H : TESTED A T [facility] 6720 (BEAKER) (test code = [facility], 1538) [id number]: Car Oiler/Techni giana ID = [id number] for JEY TSE POCT-GLUCOSE [id number] 17:11:27 Test Item Value Reference Range Interpretation Comments POC-GLUCOSE METER 188 mg/dL 70-110 H : TESTED A T [facility] 6720 (BEAKER) (test code = [facility], 1538) 30108: Car Oiler/Techni giana ID = [id number] for Da uyen, Ravi [id number] 13:29:43 Test Item Value Reference Range Interpretation Comments PHOSPHORUS (BEAKER) (test code = 2.2 mg/dL 2.3-4.7 L 604) Car Oiler ID - PIAYA LPOCT-GLUCOSE [id number] 11:24:19 Test Item Value Reference Range Interpretation Comments POC-GLUCOSE METER 246 mg/dL 70-110 H : TESTED A T [facility] 6720 (BEAKER) (test code = [facility], 1538) 88273: Car Oiler/Techni giana ID = [id number] for Da vis, Ravi [id number] 08:18:27 Test Item Value Reference Range Interpretation Comments PHOSPHORUS (BEAKER) (test code = 2.5 mg/dL 2.3-4.7 604) Car Oiler ID - DBPOCT-GLUCOSE [id number] 07:32:29 Test Item Value Reference Range Interpretation Comments POC-GLUCOSE METER 169 mg/dL 70-110 H : TESTED A T [facility] 6720 (BEAKER) (test code = [facility], 1538) 14577: Car Oiler/Techni giana ID = [id number] for Samara Ogden BASIC METABOLIC [id number] 04:53:36 Test Item Value Reference Range Interpretation Comments SODIUM (BEAKER) 135 meq/L 136-145 L (test code = 381) POTASSIUM (BEAKER) 4.0 meq/L 3.5-5.1 (test code = 379) CHLORIDE (BEAKER) 102 meq/L 98-107 (test code = 382) CO2 (BEAKER) (test 27 meq/L 22-29 code = 355) BLOOD UREA NITROGEN 5 mg/dL 7-21 L (BEAKER) (test code = 354) CREATININE (BEAKER) 0.69 mg/dL 0.57-1.25 (test code = 358) GLUCOSE RANDOM 184 mg/dL 70-105 H (BEAKER) (test code = 652) CALCIUM (BEAKER) 8.0 mg/dL 8.4-10.2 L (test code = 697) EGFR (BEAKER) (test 112 mL/min/1.73 ESTIM ATED GFR IS code = 1092) sq m NOT ACCURATE CREATININE CLEARANCE IN PREDICTING GLOMERULAR FILTRATION RATE . ESTIMATED GFR I S NOT APPLICABLE FOR DIALYSIS PATIEN TS. Car Oiler ID - ROSA AGUIRREpecimen slightly ictericHEPATIC FUNCTION [id number] 04:53:36 Test Item Value Reference Range Interpretation Comments TOTAL PROTEIN (BEAKER) (test code = 5.4 gm/dL 6.0-8.3 L 770) ALBUMIN (BEAKER) (test code = 1145) 3.1 g/dL 3.5-5.0 L BILIRUBIN TOTAL (BEAKER) (test code 2.7 mg/dL 0.2-1.2 H = 377) BILIRUBIN DIRECT (BEAKER) (test 1.8 mg/dL 0.1-0.5 H code = 706) ALKALINE PHOSPHATASE (BEAKER) (test 69 U/L 40-150 code = 346) AST (SGOT) (BEAKER) (test code = 76 U/L 5-34 H 353) ALT (SGPT) (BEAKER) (test code = 147 U/L 6-55 H 347) Car Oiler ID - ROSA LSpecimen slightly [id number] 04:53:35 Test Item Value Reference Range Interpretation Comments MAGNESIUM (BEAKER) (test code = 2.2 mg/dL 1.6-2.6 627) Car Oiler ID - ROSA [id number] 04:53:35 Test Item Value Reference Range Interpretation Comments PHOSPHORUS (BEAKER) (test code = 2.5 mg/dL 2.3-4.7 604) Car Oiler ID - PIAYA LPROTHROMBIN TIME/[id number] 03:55:11 Test Item Value Reference Range Interpretation Comments PROTIME (BEAKER) 16.5 seconds 11.9-14.2 H (test code = 759) INR (BEAKER) (test 1.35 See_Comment [Automat ed message] code = 370) The system [employer] generated this result transmitted ref erence range: <=5.90. The reference range was not used to int erpret this result as normal/abnormal . RECOMMENDED COUMADIN/WARFARIN INR THERAPY RANGESSTANDARD DOSE: 2.0 - 3.0 Includes: PROPHYLAXIS for venous thrombosis, systemic embolization; TREATMENT for venous thrombosis and/or pulmonary embolus.HIGH RISK: Target INR is 2.5-3.5 for patients with mechanical heart valves.CBC (HEMOGRAM ONLY)2022-01-13 03:48:42 Test Item Value Reference Range Interpretation Comments WHITE BLOOD CELL COUNT 12.5 K/ L 3.5-10.5 H (BEAKER) (test code = 775) RED BLOOD CELL COUNT 3.34 M/ L 3.93-5.22 L (BEAKER) (test code = 761) HEMOGLOBIN (BEAKER) 8.5 GM/DL 11.2-15.7 L (test code = 410) HEMATOCRIT (BEAKER) 29.0 % 34.1-44.9 L (test code = 411) MEAN CORPUSCULAR 86.8 fL 79.4-94.8 Discordant MCV VOLUME (BEAKER) (test result s from code = 753) previous. Clini nesha correlation required. MEAN CORPUSCULAR 25.4 pg 25.6-32.2 L HEMOGLOBIN (BEAKER) (test code = 751) MEAN CORPUSCULAR 29.3 GM/DL 32.2-35.5 L HEMOGLOBIN CONC (BEAKER) (test code = 752) RED CELL DISTRIBUTION 18.6 % 11.7-14.4 H WIDTH (BEAKER) (test code = 412) PLATELET COUNT 231 K/CU MM 150-450 (BEAKER) (test code = 756) MEAN PLATELET VOLUME 8.8 fL 9.4-12.3 L (BEAKER) (test code = 754) NUCLEATED RED BLOOD 0 /100 WBC 0-0 CELLS (BEAKER) (test code = 413) POCT-GLUCOSE [id number] 23:59:46 Test Item Value Reference Range Interpretation Comments POC-GLUCOSE METER 214 mg/dL 70-110 H : TESTED A T [facility] 6720 (BEAKER) (test code = [facility], 1538) 28807: Car Oiler/Techni giana ID = [id number] for LA MS, SENORA [id number] 22:06:40 Test Item Value Reference Range Interpretation Comments PHOSPHORUS (BEAKER) (test code = 5.1 mg/dL 2.3-4.7 H 604) Car Oiler ID - DBPOCT-GLUCOSE [id number] 21:26:04 Test Item Value Reference Range Interpretation Comments POC-GLUCOSE METER 225 mg/dL 70-110 H : TESTED A T [facility] 6720 (BEAKER) (test code = [facility], 1538) 58088: Car Oiler/Techni giana ID = [id number] for LA MS, SENORA POCT-GLUCOSE [id number] 17:38:43 Test Item Value Reference Range Interpretation Comments POC-GLUCOSE METER 256 mg/dL 70-110 H : TESTED A T [facility] 6720 (BEAKER) (test code = [facility], 1538) 94022: Car Oiler/Techni giana ID = [id number] for NAVNEET THEW (V), SOMI [id number] 12:57:22 Test Item Value Reference Range Interpretation Comments PHOSPHORUS (BEAKER) (test code = 2.5 mg/dL 2.3-4.7 604) Car Oiler ID - ANTHONY ADAMS, CHEST, 1 VIEW, NON [id number] 11:58:00REFERRING : DI COTTON MD....[id number] for exam:->picc line placementShould this be performedat the bedside?->Yes [facility] 1975 Sex: FFINAL REPORT AP view of the chest dated 01/12/2022 COMPARISON: January 11, 2022 CLINICAL INFORMATION: picc line placement Comment: Since prior examination, there is interval placement of a left PICC line with tip seen in the left axillary vein. No other changes are seen in the chest. Signed: Noel Hdez Verified Date/Time: 01/12/2022 11:58:32 Reading Location: [facility] C013Y CT Body Reading Room POCT-GLUCOSE [id number] 11:45:37 Test Item Value Reference Range Interpretation Comments POC-GLUCOSE METER 191 mg/dL 70-110 H : TESTED A T [facility] 6720 (BEAKER) (test code = [facility], 1538) 48002: Car Oiler/Techni giana ID = [id number] for NAVNEET OWEN (Ally)FABIAN POCT-GLUCOSE [id number] 06:12:53 Test Item Value Reference Range Interpretation Comments POC-GLUCOSE METER 206 mg/dL 70-110 H : TESTED A T [facility] 6720 (BEAKER) (test code = [facility] [employer] [facility], 1538) 08735: Car Oiler/Techni giana ID = [id number] for Joseph mcbride Jose HEPATIC FUNCTION [id number] 05:52:22 Test Item Value Reference Range Interpretation Comments TOTAL PROTEIN (BEAKER) (test code = 6.0 gm/dL 6.0-8.3 770) ALBUMIN (BEAKER) (test code = 1145) 3.5 g/dL 3.5-5.0 BILIRUBIN TOTAL (BEAKER) (test code 3.5 mg/dL 0.2-1.2 H = 377) BILIRUBIN DIRECT (BEAKER) (test 2.3 mg/dL 0.1-0.5 H code = 706) ALKALINE PHOSPHATASE (BEAKER) (test 71 U/L 40-150 code = 346) AST (SGOT) (BEAKER) (test code = 151 U/L 5-34 H 353) ALT (SGPT) (BEAKER) (test code = 228 U/L 6-55 H 347) Car Oiler ZAC Chung slightly ictericBASIC METABOLIC [id number] 05:52:21 Test Item Value Reference Range Interpretation Comments SODIUM (BEAKER) 136 meq/L 136-145 (test code = 381) POTASSIUM (BEAKER) 4.0 meq/L 3.5-5.1 (test code = 379) CHLORIDE (BEAKER) 101 meq/L 98-107 (test code = 382) CO2 (BEAKER) (test 25 meq/L 22-29 code = 355) BLOOD UREA NITROGEN 6 mg/dL 7-21 L (BEAKER) (test code = 354) CREATININE (BEAKER) 0.76 mg/dL 0.57-1.25 (test code = 358) GLUCOSE RANDOM 211 mg/dL 70-105 H (BEAKER) (test code = 652) CALCIUM (BEAKER) 8.1 mg/dL 8.4-10.2 L (test code = 697) EGFR (BEAKER) (test 100 mL/min/1.73 ESTIM ATED GFR IS code = 1092) sq m NOT ACCURATE CREATININE CLEARANCE IN PREDICTING GLOMERULAR FILTRATION RATE . ESTIMATED GFR I S NOT APPLICABLE FOR DIALYSIS PATIEN TS. Car Oiler ID Ly Chung slightly [id number] 05:52:20 Test Item Value Reference Range Interpretation Comments MAGNESIUM (BEAKER) (test code = 2.3 mg/dL 1.6-2.6 627) Car Oiler ID Ly SHUKLA [id number] 05:52:20 Test Item Value Reference Range Interpretation Comments PHOSPHORUS (BEAKER) (test code = 3.2 mg/dL 2.3-4.7 604) Car Oiler ZAC BONILLAROTHROMBIN TIME/[id number] 05:14:02 Test Item Value Reference Range Interpretation Comments PROTIME (BEAKER) 18.4 seconds 11.9-14.2 H (test code = 759) INR (BEAKER) (test 1.55 See_Comment [Automat ed message] code = 370) The system [employer] generated this result transmitted ref erence range: <=5.90. The reference range was not used to int erpret this result as normal/abnormal . RECOMMENDED COUMADIN/WARFARIN INR THERAPY RANGESSTANDARD DOSE: 2.0 - 3.0 Includes: PROPHYLAXIS for venous thrombosis, systemic embolization; TREATMENT for venous thrombosis and/or pulmonary embolus.HIGH RISK: Target INR is 2.5-3.5 for patients with mechanical heart valves.CBC (HEMOGRAM ONLY)2022-01-12 05:11:39 Test Item Value Reference Range Interpretation Comments WHITE BLOOD CELL COUNT (BEAKER) 13.5 K/ L 3.5-10.5 H (test code = 775) RED BLOOD CELL COUNT (BEAKER) 3.65 M/ L 3.93-5.22 L (test code = 761) HEMOGLOBIN (BEAKER) (test code = 9.4 GM/DL 11.2-15.7 L 410) HEMATOCRIT (BEAKER) (test code = 30.2 % 34.1-44.9 L 411) MEAN CORPUSCULAR VOLUME (BEAKER) 82.7 fL 79.4-94.8 (test code = 753) MEAN CORPUSCULAR HEMOGLOBIN 25.8 pg 25.6-32.2 (BEAKER) (test code = 751) MEAN CORPUSCULAR HEMOGLOBIN CONC 31.1 GM/DL 32.2-35.5 L (BEAKER) (test code = 752) RED CELL DISTRIBUTION WIDTH 18.4 % 11.7-14.4 H (BEAKER) (test code = 412) PLATELET COUNT (BEAKER) (test 242 K/CU MM 150-450 code = 756) MEAN PLATELET VOLUME (BEAKER) 8.9 fL 9.4-12.3 L (test code = 754) NUCLEATED RED BLOOD CELLS 0 /100 WBC 0-0 (BEAKER) (test code = 413) POCT-GLUCOSE [id number] 04:26:10 Test Item Value Reference Range Interpretation Comments POC-GLUCOSE METER 205 mg/dL 70-110 H : TESTED A T [facility] 6720 (BEAKER) (test code = [facility], 1538) 63067: Car Oiler/Techni giana ID = [id number] for Samara Ogden RAD, CHEST, 1 VIEW, NON [id number] 23:52:00REFERRING : DI COTTON MD....[id number] for exam:->acute hypoxiaShould this be performed at the bedside?->[facility] : 1975 Sex: FFINAL REPORT RAD, CHEST, 1 VIEW, NON DEPT INDICATION: acute hypoxia COMPARISON: Prior day's exam FINDINGS: Portable frontal view of the chest. IMPRESSION: Support Lines: Stable. Lungs and pleura: Increasing consolidative airspace opacities in the bilateral lower lobes may be relatedto decreased lung volumes increased atelectasis however developing infection can have this appearance the appropriate clinical setting. Small bilateral pleural effusions. No pneumothorax.Heart and mediastinum: Stable contours. Additional findings: Unchanged gas under the right hemidiaphragm favored torepresent pneumoperitoneum. Signed: Amber [facility] Verified Date/Time: 01/11/2022 23:52:55 BASI METABOLIC [id number] 23:20:43 Test Item Value Reference Range Interpretation Comments SODIUM (BEAKER) 135 meq/L 136-145 L (test code = 381) POTASSIUM (BEAKER) 4.0 meq/L 3.5-5.1 (test code = 379) CHLORIDE (BEAKER) 101 meq/L 98-107 (test code = 382) CO2 (BEAKER) (test 26 meq/L 22-29 code = 355) BLOOD UREA NITROGEN 7 mg/dL 7-21 (BEAKER) (test code = 354) CREATININE (BEAKER) 0.76 mg/dL 0.57-1.25 (test code = 358) GLUCOSE RANDOM 206 mg/dL 70-105 H (BEAKER) (test code = 652) CALCIUM (BEAKER) 7.9 mg/dL 8.4-10.2 L (test code = 697) EGFR (BEAKER) (test 100 mL/min/1.73 ESTIM ATED GFR IS code = 1092) sq m NOT ACCURATE CREATININE CLEARANCE IN PREDICTING GLOMERULAR FILTRATION RATE . ESTIMATED GFR I S NOT APPLICABLE FOR DIALYSIS PATIEN TS. Car Oiler ID - DBSpecimen slightly [id number] 23:17:10 Test Item Value Reference Range Interpretation Comments PHOSPHORUS (BEAKER) (test code = 3.0 mg/dL 2.3-4.7 604) Car Oiler ID - [id number] 23:17:09 Test Item Value Reference Range Interpretation Comments MAGNESIUM (BEAKER) (test code = 2.4 mg/dL 1.6-2.6 627) Car Oiler ID - DBPOCT-GLUCOSE [id number] 22:52:03 Test Item Value Reference Range Interpretation Comments POC-GLUCOSE METER 199 mg/dL 70-110 H : TESTED A T [facility] 6720 (BEAKER) (test code = [facility], 153) 57618: Car Oiler/Techni giana ID = [id number] for Sp rae Jose POCT-GLUCOSE [id number] 20:46:41 Test Item Value Reference Range Interpretation Comments POC-GLUCOSE METER 194 mg/dL 70-110 H : TESTED A T [facility] 6720 (BEAKER) (test code = [facility], 1538) 89825: Car Oiler/Techni giana ID = [id number] for Ak Samara bledsoe POCT-GLUCOSE [id number] 16:59:55 Test Item Value Reference Range Interpretation Comments POC-GLUCOSE METER 119 mg/dL 70-110 H : TESTED A T [facility] 6720 (BEAKER) (test code = [facility], 1538) 98496: Car Oiler/Techni giana ID = [id number] for DE ALEXANDRO LONG U/S, ABDOMINAL, WITH [id number] 16:00:00REFERRING : DI COTTON MD....1495Reason for exam:->s/p hepatectomy- assess for fluid collection or bile leak/edema \\T\\ assess IVC [facility] : 1975 Sex: FFINAL REPORT TECHNIQUE: Grayscale ultrasound of the abdomen with color Doppler and spectral Doppler ultrasound of the portal/hepatic vasculature. INDICATION: s/p hepatectomy- assess for fluid collection or bile leak/edema \\T\\ assess IVC COMPARISON: 01/09/2022. FINDINGS: LIVER: Statuspost right hepatectomy. The liver is normal in size and echogenicity with smooth contour. No focal liver lesions.The liver measures 12.7 cm in length. HEPATIC VASCULATURE: Main portal vein measures 1.7cm in diameter. Main and left portal veins are patent with normal waveform and directionality. Flow velocity in the main portal vein is within normal limits. The hepatic arteries are patent with normalflow velocities, resistive indices, and waveforms. Resistive indices of the proper and left hepatic arteries are 0.7 and 0.8, respectively. The hepatic veins and confluence are patent. BILIARY:Gallbladder: Gallbladder is absent. Common bile duct measures 0.6 cm, within normal limits. No intrahepatic biliary ductal dilatation. PANCREAS: Incompletely visualized due to overlying bowel gas. SPLEEN: Borderline splenomegaly. The spleen measures 13 cm in length. PERITONEUM: Trace ascites.. There is a right-sided pleural effusion. KIDNEYS: The kidneys are normal in size. No hydronephrosis. No sonographically evident solid mass lesion. The right kidney measures 13.3 cm in length. The left kidney measures 13.4 cm in length. MIDLINE VASCULATURE: The visualized inferior vena cava is patent. The maximum visualized aortic diameter is 2.2 cm. Splenic artery and vein are patent. IMPRESSION:Status post right hepatectomy. Patent hepatic vasculature. Trace ascites and right-sided pleural effusion. Borderline splen omegaly. Signed: Raghav Emmanuel [facility] Verified Date/Time: 01/11/2022 16:00:16 [id number] 15:15:53 Test Item Value Reference Range Interpretation Comments PHOSPHORUS (BEAKER) (test code = 1.6 mg/dL 2.3-4.7 L 604) Car Oiler ID - DBPOCT-GLUCOSE [id number] 12:27:11 Test Item Value Reference Range Interpretation Comments POC-GLUCOSE METER 113 mg/dL 70-110 H : TESTED A T [facility] 6720 (BEAKER) (test code = [facility], 1538) [id number]: Car Oiler/Techni giana ID = [id number] for ALEXANDRO CROWDER POCT-GLUCOSE [id number] 11:53:46 Test Item Value Reference Range Interpretation Comments POC-GLUCOSE METER 122 mg/dL 70-110 H : TESTED A T [facility] 6720 (BEAKER) (test code = [facility], 1538) 84962: Car Oiler/Techni giana ID = [id number] for Mary coreyana (contract)Gloria cia BASIC METABOLIC [id number] 07:27:22 Test Item Value Reference Range Interpretation Comments SODIUM (BEAKER) 139 meq/L 136-145 (test code = 381) POTASSIUM (BEAKER) 4.0 meq/L 3.5-5.1 (test code = 379) CHLORIDE (BEAKER) 105 meq/L 98-107 (test code = 382) CO2 (BEAKER) (test 24 meq/L 22-29 code = 355) BLOOD UREA NITROGEN 6 mg/dL 7-21 L (BEAKER) (test code = 354) CREATININE (BEAKER) 0.69 mg/dL 0.57-1.25 (test code = 358) GLUCOSE RANDOM 131 mg/dL 70-105 H (BEAKER) (test code = 652) CALCIUM (BEAKER) 7.8 mg/dL 8.4-10.2 L (test code = 697) EGFR (BEAKER) (test 112 mL/min/1.73 ESTIM ATED GFR IS code = 1092) sq m NOT ACCURATE CREATININE CLEARANCE IN PREDICTING GLOMERULAR FILTRATION RATE . ESTIMATED GFR I S NOT APPLICABLE FOR DIALYSIS PATIEN TS. Car Oiler ID Ly Chung slightly ictericHEPATIC FUNCTION [id number] 07:20:11 Test Item Value Reference Range Interpretation Comments TOTAL PROTEIN (BEAKER) (test code = 5.2 gm/dL 6.0-8.3 L 770) ALBUMIN (BEAKER) (test code = 1145) 3.2 g/dL 3.5-5.0 L BILIRUBIN TOTAL (BEAKER) (test code 3.1 mg/dL 0.2-1.2 H = 377) BILIRUBIN DIRECT (BEAKER) (test 1.8 mg/dL 0.1-0.5 H code = 706) ALKALINE PHOSPHATASE (BEAKER) (test 57 U/L 40-150 code = 346) AST (SGOT) (BEAKER) (test code = 251 U/L 5-34 H 353) ALT (SGPT) (BEAKER) (test code = 279 U/L 6-55 H 347) Car Oiler ZAC Chung slightly [id number] 07:20:10 Test Item Value Reference Range Interpretation Comments PHOSPHORUS (BEAKER) (test code = 2.8 mg/dL 2.3-4.7 604) Car Oiler ID Ly SHUKLA [id number] 07:20:09 Test Item Value Reference Range Interpretation Comments MAGNESIUM (BEAKER) (test code = 1.9 mg/dL 1.6-2.6 627) Car Oiler ID Ly SHUKLA [id number] 06:32:13 Test Item Value Reference Range Interpretation Comments PARTIAL THROMBOPLASTIN TIME 31.5 seconds 22.5-36.0 (BEAKER) (test code = 760) POCT-GLUCOSE [id number] 06:31:54 Test Item Value Reference Range Interpretation Comments POC-GLUCOSE METER 138 mg/dL 70-110 H : TESTED A T [facility] 6720 (BEAKER) (test code = [facility], 1538) 01287: Car Oiler/Techni giana ID = [id number] for Jose Benítez PROTHROMBIN TIME/[id number] 06:31:30 Test Item Value Reference Range Interpretation Comments PROTIME (BEAKER) 19.2 seconds 11.9-14.2 H (test code = 759) INR (BEAKER) (test 1.64 See_Comment [Automat ed message] code = 370) The system [employer] generated this result transmitted ref erence range: <=5.90. The reference range was not used to int erpret this result as normal/abnormal . RECOMMENDED COUMADIN/WARFARIN INR THERAPY RANGESSTANDARD DOSE: 2.0 - 3.0 Includes: PROPHYLAXIS for venous thrombosis, systemic embolization; TREATMENT for venous thrombosis and/or pulmonary embolus.HIGH RISK: Target INR is 2.5-3.5 for patients with mechanical heart valves.CBC (HEMOGRAM ONLY)2022-01-11 06:31:10 Test Item Value Reference Range Interpretation Comments WHITE BLOOD CELL COUNT (BEAKER) 19.2 K/ L 3.5-10.5 H (test code = 775) RED BLOOD CELL COUNT (BEAKER) 3.32 M/ L 3.93-5.22 L (test code = 761) HEMOGLOBIN (BEAKER) (test code = 8.5 GM/DL 11.2-15.7 L 410) HEMATOCRIT (BEAKER) (test code = 27.7 % 34.1-44.9 L 411) MEAN CORPUSCULAR VOLUME (BEAKER) 83.4 fL 79.4-94.8 (test code = 753) MEAN CORPUSCULAR HEMOGLOBIN 25.6 pg 25.6-32.2 (BEAKER) (test code = 751) MEAN CORPUSCULAR HEMOGLOBIN CONC 30.7 GM/DL 32.2-35.5 L (BEAKER) (test code = 752) RED CELL DISTRIBUTION WIDTH 18.2 % 11.7-14.4 H (BEAKER) (test code = 412) PLATELET COUNT (BEAKER) (test 207 K/CU MM 150-450 code = 756) MEAN PLATELET VOLUME (BEAKER) 9.6 fL 9.4-12.3 (test code = 754) NUCLEATED RED BLOOD CELLS 0 /100 WBC 0-0 (BEAKER) (test code = 413) RAD, CHEST, 1 VIEW, NON [id number] 06:17:00REFERRING : DI COTTON MD....[id number] for exam:->overloadShould this be performed at the beds claudia?->YesCH[facility] : 1975 Sex: FFINAL REPORT RAD, CHEST, 1 VIEW, NON DEPT INDICATION: overload COMPARISON: Prior day's exam FINDINGS: Portable frontal view of the chest. IMPRESSION: Support Lines: Right IJ CVC tip overlies the cavoatrial junction. Enteric tube has been removed. Lungs and pleura: Low lung volumes, interstitial opacities and suspected small pleural effusions are stable in appearance. No pneumothorax.Heart and mediastinum: Stable contours. Additional findings: None. Signed: Chris Larios MDReportVerified Date/Time: 01/11/2022 06:17:18 IUM, [id number] 05:49:44 Test Item Value Reference Range Interpretation Comments CALCIUM IONIZED (BEAKER) (test 1.05 mmol/L 1.12-1.27 L code = 698) PH, BLOOD (BEAKER) (test code = 7.36 1810) POCT-GLUCOSE [id number] 04:47:13 Test Item Value Reference Range Interpretation Comments POC-GLUCOSE METER 150 mg/dL 70-110 H : TESTED A T [facility] 6720 (BEAKER) (test code = [place], 1538) [address]: Car Oiler/Techni giana ID = [id number] for AKHIONBARE, TITO TH POCT-GLUCOSE [id number] 02:23:48 Test Item Value Reference Range Interpretation Comments POC-GLUCOSE METER 107 mg/dL 70-110 : TESTED A T [facility] 6720 (BEAKER) (test code = [facility], [facility]8) [id number]: Car Oiler/Techni giana ID = [id number] for AKHIONBARE, TITO TH POCT-GLUCOSE [id number] 01:40:24 Test Item Value Reference Range Interpretation Comments POC-GLUCOSE METER 60 mg/dL 70-110 L : TESTED A T [facility] 6720 (BEAKER) (test code = [facility], [facility]) [address]: Car Oiler/Techni giana ID = [id number] for Spen cer, Jose POCT-GLUCOSE [id number] 01:20:51 Test Item Value Reference Range Interpretation Comments POC-GLUCOSE METER 79 mg/dL 70-110 : TESTED A T [facility] 6720 (BEAKER) (test code = [facility], [facility]8) [address]: Car Oiler/Techni giana ID = [id number] for Spen cer, Jose [id number] 00:04:49 Test Item Value Reference Range Interpretation Comments PHOSPHORUS (BEAKER) (test code = 3.0 mg/dL 2.3-4.7 604) Car Oiler ID - DBPOCT-GLUCOSE [id number] 22:32:57 Test Item Value Reference Range Interpretation Comments POC-GLUCOSE METER 107 mg/dL 70-110 : TESTED A T [facility] 6720 (BEAKER) (test code = [facility], [facility]8) 7[address]: Car Oiler/Techni giana ID = [id number] for Sp encer, Jose POCT-GLUCOSE [id number] 21:11:58 Test Item Value Reference Range Interpretation Comments POC-GLUCOSE METER 111 mg/dL 70-110 H : TESTED A T [facility] 6720 (BEAKER) (test code = [facility], [facility]8) 16340: Car Oiler/Techni giana ID = [id number] for Sp encer, Jose POCT-GLUCOSE [id number] 20:12:59 Test Item Value Reference Range Interpretation Comments POC-GLUCOSE METER 118 mg/dL 70-110 H : TESTED A T [facility] 6720 (KIT) (test code = [facility] [place], 1538) 76706: Car Oiler/Techni giana ID = [id number] for Jose Benítez SARS-COV2/RT-PCR ([facility])2022-01-10 20:00:18 Test Item Value Reference Range Interpretation Comments SARS-COV2/RT-PCR (test code = Negative Negative 4429435) Negative result for this test determines that SARS-CoV-2 RNA was not present in the specimen above the Limit of Detection (LOD). However, Negative results do not preclude SARS-CoV-2 infection and should not be used as the sole basis for treatment or patient management decisions. Negative results must be combined with clinical observations, patient history, and epidemiological information. A false negative result may occur if a specimen is improperly collected, transported, or handled. A false negative result should be considered if patient's recent exposures or clinical presentation indicate that COVID-19 (SARS-CoV-2) is likely and diagnostic tests for other causes of illness are negative. Re-testing should be considered in cases of suspected false negatives.The limit of detection for this assay is 100 copies/mL.This SARS-CoV-2 test is a real-time RT_PCR test intended for the qualitative detection of nucleic acid from SARS-CoV-2 in a nasopharyngeal swab specimen collected from individuals suspected of COVID-19 by their healthcare provider.This test has not been Food and Drug Administration (FDA) cleared or approved. This is a modified version of an approved Emergency Use Authorization (EUA) and is in the process of review by the FDA. Once authorized by the FDA, the issued EUA will be effective until the declaration that circumstances exist justifying the authorization of the emergency use of in vitro diagnostic tests for detection and/or diagnosis of COVID-19 is terminated under Section 564(b)(2) of the Act or the EUA is revoked under Section 564(g) of the Act.Testing was performed using t kala Disc[employer] SARS-CoV-2 assay.Fact Sheet for Healthcare Providers:https://www.LeisureLink.Ogone/clive/RT SARS-CoV-2 HCP Fact Sheet 51- 971943.pdfFact Sheet for Healthcare Patients:https://www.Fundation/clive/RT SARS-CoV-2 Patient Fact Sheet EN 51-693370I7.pdfPOCT-GLUCOSE [id number] 19:44:42 Test Item Value Reference Range Interpretation Comments POC-GLUCOSE METER 133 mg/dL 70-110 H : TESTED A T [facility] 6720 (BEAKER) (test code = [facility], 1538) 69505: Car Oiler/Techni giana ID = [id number] for Wr aggs (contract), Gloria ford POCT-GLUCOSE [id number] 18:18:46 Test Item Value Reference Range Interpretation Comments POC-GLUCOSE METER 148 mg/dL 70-110 H : TESTED A T [facility] 6720 (BEAKER) (test code = [facility], 1538) 70825: Car Oiler/Techni giana ID = [id number] for Wr aggs (contract), Gloria ford POCT-GLUCOSE [id number] 17:40:11 Test Item Value Reference Range Interpretation Comments POC-GLUCOSE METER 156 mg/dL 70-110 H : TESTED A T [facility] 6720 (BEAKER) (test code = [facility], 1538) 43312: Car Oiler/Techni giana ID = [id number] for Wr aggs (contract), Gloria ford BASIC METABOLIC [id number] 17:04:40 Test Item Value Reference Range Interpretation Comments SODIUM (BEAKER) 143 meq/L 136-145 (test code = 381) POTASSIUM (BEAKER) 4.0 meq/L 3.5-5.1 (test code = 379) CHLORIDE (BEAKER) 109 meq/L 98-107 H (test code = 382) CO2 (BEAKER) (test 26 meq/L 22-29 code = 355) BLOOD UREA NITROGEN 8 mg/dL 7-21 (BEAKER) (test code = 354) CREATININE (BEAKER) 0.78 mg/dL 0.57-1.25 (test code = 358) GLUCOSE RANDOM 241 mg/dL 70-105 H (BEAKER) (test code = 652) CALCIUM (BEAKER) 8.3 mg/dL 8.4-10.2 L (test code = 697) EGFR (BEAKER) (test 97 mL/min/1.73 ESTIMA KYLIE GFR IS code = 1092) sq m NOT ACCURATE CREATININE CLEARANCE IN PREDICTING GLOMERULAR FILTRATION RATE . ESTIMATED GFR I S NOT APPLICABLE FOR DIALYSIS PATIEN TS. Car Oiler ID - [id number] 17:04:40 Test Item Value Reference Range Interpretation Comments PHOSPHORUS (BEAKER) (test code = 2.6 mg/dL 2.3-4.7 604) Car Oiler ID - DBPOCT-GLUCOSE [id number] 16:20:01 Test Item Value Reference Range Interpretation Comments POC-GLUCOSE METER 185 mg/dL 70-110 H : TESTED A T [facility] 6720 (BEAKER) (test code = [facility], 1538) 65957: Car Oiler/Techni giana ID = [id number] for Wr aggs (contract), Ali logan POCT-GLUCOSE [id number] 14:59:35 Test Item Value Reference Range Interpretation Comments POC-GLUCOSE METER 231 mg/dL 70-110 H : TESTED A T [facility] 6720 (BEAKER) (test code = [facility], 1538) 17474: Car Oiler/Techni giana ID = [id number] for Wr aggs (contract), Ali logan POCT-GLUCOSE [id number] 13:41:10 Test Item Value Reference Range Interpretation Comments POC-GLUCOSE METER 255 mg/dL 70-110 H : TESTED A T [facility] 6720 (BEAKER) (test code = [facility], 1538) 11067: Car Oiler/Techni giana ID = [id number] for Wr aggs (contract), Ali logan POCT-GLUCOSE [id number] 12:27:46 Test Item Value Reference Range Interpretation Comments POC-GLUCOSE METER 244 mg/dL 70-110 H : TESTED A T [facility] 6720 (BEAKER) (test code = [facility], 1538) 03426: Car Oiler/Techni giana ID = [id number] for Wr aggs (contract), Ali logan POCT-GLUCOSE [id number] 11:30:30 Test Item Value Reference Range Interpretation Comments POC-GLUCOSE METER 196 mg/dL 70-110 H : TESTED A T [facility] 6720 (BEAKER) (test code = [facility], 1538) 23560: Car Oiler/Techni giana ID = [id number] for Wr aggs (contract), Ali logan Hemoglobin [id number] 10:30:44 Test Item Value Reference Range Interpretation Comments Hemoglobin A1C (test 7.7 % See_Comment H [Autom ated code = 4549-2) message] The system which generated this result transmitted reference range : <=5.6%. The reference range was not used to interpret this result as normal/abnormal . THAI (test code = THAI) "The A1c is measured using a NGSP-certified method. HbA1c value equal to or greater than 6.5% as the diagnosis cutoff for diabetes. An HbA1c value of 5.7-6.4% indicates increased risk for diabetes (prediabetes)."O perator ID - ADM Lab Interpretation Abnormal (test code = 24329-1) [facility] [id number] 10:30:44 Test Item Value Reference Range Interpretation Comments HEMOGLOBIN A1C 7.7 % See_Comment H [Automated m essage] ELECTROPHORESIS (BEAKER) The system which (test code = 3811) generated this result transmitted ref erence range: <=5.6%. The reference range was not used to int erpret this result as normal/abnormal . "The A1c is measured using a NGSP-certified method. HbA1c value equal to or greater than 6.5% as thediagnosis cutoff for diabetes. An HbA1c value of 5.7- 6.4% indicates increased risk for diabetes (prediabetes)."Car Oiler ID - ADMPOCT- GLUCOSE [id number] 10:19:53 Test Item Value Reference Range Interpretation Comments POC-GLUCOSE METER 220 mg/dL 70-110 H : TESTED A T [facility] 6720 (BEAKER) (test code = [facility], 1538) 15980: Car Oiler/Techni giana ID = [id number] for Wr aggs (contract), Ali logan POCT-GLUCOSE [id number] 09:05:34 Test Item Value Reference Range Interpretation Comments POC-GLUCOSE METER 140 mg/dL 70-110 H : TESTED A T [facility] 6720 (BEAKER) (test code = [facility], 1538) 82658: Car Oiler/Techni giana ID = [id number] for Wr aggs (contract), Ali logan POCT-GLUCOSE [id number] 06:31:22 Test Item Value Reference Range Interpretation Comments POC-GLUCOSE METER 149 mg/dL 70-110 H : TESTED A T [facility] 6720 (KIT) (test code = [facility], 1538) 53474: Car Oiler/Techni giana ID = [id number] for Sp Jose mcbride POCT-GLUCOSE [id number] 04:50:49 Test Item Value Reference Range Interpretation Comments POC-GLUCOSE METER 135 mg/dL 70-110 H : TESTED A T [facility] 6720 (KIT) (test code = [facility], 1538) 29708: Car Oiler/Techni giana ID = [id number] for Sp encer, Jose RAD, CHEST, 1 VIEW, NON [id number] 04:32:00REFERRING : DI COTTON MD....[id number] for exam:->overloadShould this be performed at the [facility]?->[facility] : 1975 Sex: FFINAL REPORT RAD, CHEST, 1 VIEW, NON DEPT INDICATION: overload COMPARISON: Prior day's exam FINDINGS: Portable frontal view of the chest. IMPRESSION: Support Lines: Stable. Lungs andpleura: Worsening left retrocardiac airspace opacity and small left pleural effusion. Increasing right basilar atelectasis. Findings may be related to decreased lung volumes. No pneumothorax.Heart and mediastinum: Stable contours. Additional findings: Lucency under the right hemidiaphragm may be related to pneumoperitoneum in the setting of a recent procedure. Signed: Shaeffer, Amber MDReport Verified Date/Time: 01/10/2022 04:32:08 CALCIUM, [id number] 03:53:08 Test Item Value Reference Range Interpretation Comments CALCIUM IONIZED (BEAKER) (test 1.15 mmol/L 1.12-1.27 code = 698) PH, BLOOD (BEAKER) (test code = 7.39 1810) BASIC METABOLIC [id number] 03:32:49 Test Item Value Reference Range Interpretation Comments SODIUM (BEAKER) 146 meq/L 136-145 H (test code = 381) POTASSIUM (BEAKER) 3.7 meq/L 3.5-5.1 (test code = 379) CHLORIDE (BEAKER) 111 meq/L 98-107 H (test code = 382) CO2 (BEAKER) (test 27 meq/L 22-29 code = 355) BLOOD UREA NITROGEN 10 mg/dL 7-21 (BEAKER) (test code = 354) CREATININE (BEAKER) 0.86 mg/dL 0.57-1.25 (test code = 358) GLUCOSE RANDOM 148 mg/dL 70-105 H (BEAKER) (test code = 652) CALCIUM (BEAKER) 8.6 mg/dL 8.4-10.2 (test code = 697) EGFR (BEAKER) (test 87 mL/min/1.73 ESTIMA KYLIE GFR IS code = 1092) sq m NOT ACCURATE CREATININE CLEARANCE IN PREDICTING GLOMERULAR FILTRATION RATE . ESTIMATED GFR I S NOT APPLICABLE FOR DIALYSIS PATIEN TS. Car Oiler ID - BSSpecimen slightly ictericHEPATIC FUNCTION [id number] 03:32:49 Test Item Value Reference Range Interpretation Comments TOTAL PROTEIN (BEAKER) (test code = 5.8 gm/dL 6.0-8.3 L 770) ALBUMIN (BEAKER) (test code = 1145) 3.8 g/dL 3.5-5.0 BILIRUBIN TOTAL (BEAKER) (test code 2.8 mg/dL 0.2-1.2 H = 377) BILIRUBIN DIRECT (BEAKER) (test 1.9 mg/dL 0.1-0.5 H code = 706) ALKALINE PHOSPHATASE (BEAKER) (test 49 U/L 40-150 code = 346) AST (SGOT) (BEAKER) (test code = 370 U/L 5-34 H 353) ALT (SGPT) (BEAKER) (test code = 324 U/L 6-55 H 347) Car Oiler ID - BSSpecmarlon slightly [id number] 03:32:48 Test Item Value Reference Range Interpretation Comments MAGNESIUM (BEAKER) (test code = 2.3 mg/dL 1.6-2.6 627) Car Oiler ID - [id number] 03:32:48 Test Item Value Reference Range Interpretation Comments PHOSPHORUS (BEAKER) (test code = 1.9 mg/dL 2.3-4.7 L 604) Car Oiler ID - [id number] 03:04:23 Test Item Value Reference Range Interpretation Comments PARTIAL THROMBOPLASTIN TIME 33.4 seconds 22.5-36.0 (BEAKER) (test code = 760) PROTHROMBIN TIME/[id number] 03:03:43 Test Item Value Reference Range Interpretation Comments PROTIME (BEAKER) 20.4 seconds 11.9-14.2 H (test code = 759) INR (BEAKER) (test 1.77 See_Comment [Automat ed message] code = 370) The system [employer] generated this result transmitted ref erence range: <=5.90. The reference range was not used to int erpret this result as normal/abnormal . RECOMMENDED COUMADIN/WARFARIN INR THERAPY RANGESSTANDARD DOSE: 2.0 - 3.0 Includes: PROPHYLAXIS for venous thrombosis, systemic embolization; TREATMENT for venous thrombosis and/or pulmonary embolus.HIGH RISK: Target INR is 2.5-3.5 for patients with mechanical heart valves.CBC (HEMOGRAM ONLY)2022-01-10 02:54:41 Test Item Value Reference Range Interpretation Comments WHITE BLOOD CELL COUNT (BEAKER) 19.8 K/ L 3.5-10.5 H (test code = 775) RED BLOOD CELL COUNT (BEAKER) 3.74 M/ L 3.93-5.22 L (test code = 761) HEMOGLOBIN (BEAKER) (test code = 9.5 GM/DL 11.2-15.7 L 410) HEMATOCRIT (BEAKER) (test code = 31.0 % 34.1-44.9 L 411) MEAN CORPUSCULAR VOLUME (BEAKER) 82.9 fL 79.4-94.8 (test code = 753) MEAN CORPUSCULAR HEMOGLOBIN 25.4 pg 25.6-32.2 L (BEAKER) (test code = 751) MEAN CORPUSCULAR HEMOGLOBIN CONC 30.6 GM/DL 32.2-35.5 L (BEAKER) (test code = 752) RED CELL DISTRIBUTION WIDTH 17.3 % 11.7-14.4 H (BEAKER) (test code = 412) PLATELET COUNT (BEAKER) (test 229 K/CU MM 150-450 code = 756) MEAN PLATELET VOLUME (BEAKER) 8.6 fL 9.4-12.3 L (test code = 754) NUCLEATED RED BLOOD CELLS 0 /100 WBC 0-0 (BEAKER) (test code = 413) POCT-GLUCOSE [id number] 02:18:30 Test Item Value Reference Range Interpretation Comments POC-GLUCOSE METER 139 mg/dL 70-110 H : TESTED A T [facility] 6720 (BEAKER) (test code = [facility], 153) 52170: Car Oiler/Techni giana ID = [id number] for Sp encer, Jose POCT-GLUCOSE [id number] 01:19:22 Test Item Value Reference Range Interpretation Comments POC-GLUCOSE METER 138 mg/dL 70-110 H : TESTED A T [facility] 6720 (BEAKER) (test code = [facility], 153) 61062: Car Oiler/Techni giana ID = [id number] for Sp encer, Jose POCT-GLUCOSE [id number] 00:20:30 Test Item Value Reference Range Interpretation Comments POC-GLUCOSE METER 151 mg/dL 70-110 H : TESTED A T [facility] 6720 (BEAKER) (test code = [facility], 1538) 86529: Car Oiler/Techni giana ID = [id number] for Sp encer, Jose Prepare [id number] 23:55:00 Test Item Value Reference Range Interpretation Comments CROSSMATCH (test code = 2264) COMPATIBLE Unit ABO (test code = O Pos 9876647) UNIT NUMBER (test code = [id number] 934-0) Status (test code = 0999304) TX_TIMEINCHART Blood Bank Product (test code RED BLOOD CELLS = 2263) PRODUCT CODE (test code = G8626F20 933-2) [facility] Leuko-Red [id number] 23:55:00 Test Item Value Reference Range Interpretation Comments CROSSMATCH (test code = COMPATIBLE 2264) Unit ABO (test code = O Pos 3226490) UNIT NUMBER (test code = [id number] 934-0) Status (test code = RETURNED FROM ISSUE 6240559) Blood Bank Product (test RED BLOOD CELLS code = 2263) PRODUCT CODE (test code = K2388D96 933-2) [facility] campusPOCT-GLUCOSE [id number] 23:19:52 Test Item Value Reference Range Interpretation Comments POC-GLUCOSE METER 148 mg/dL 70-110 H : TESTED A T [facility] 6720 (BEAKER) (test code = [facility] [place], 1538) 11874: Car Oiler/Techni giana ID = [id number] for Jose Benítez BASIC METABOLIC [id number] 22:46:16 Test Item Value Reference Range Interpretation Comments SODIUM (BEAKER) 144 meq/L 136-145 (test code = 381) POTASSIUM (BEAKER) 3.9 meq/L 3.5-5.1 (test code = 379) CHLORIDE (BEAKER) 110 meq/L 98-107 H (test code = 382) CO2 (BEAKER) (test 26 meq/L 22-29 code = 355) BLOOD UREA NITROGEN 11 mg/dL 7-21 (BEAKER) (test code = 354) CREATININE (BEAKER) 0.87 mg/dL 0.57-1.25 (test code = 358) GLUCOSE RANDOM 193 mg/dL 70-105 H (BEAKER) (test code = 652) CALCIUM (BEAKER) 8.4 mg/dL 8.4-10.2 (test code = 697) EGFR (BEAKER) (test 86 mL/min/1.73 ESTIMA KYLIE GFR IS code = 1092) sq m NOT ACCURATE CREATININE CLEARANCE IN PREDICTING GLOMERULAR FILTRATION RATE . ESTIMATED GFR I S NOT APPLICABLE FOR DIALYSIS PATIEN TS. Car Oiler ID - BSSpecimen slightly [id number] 22:46:15 Test Item Value Reference Range Interpretation Comments MAGNESIUM (BEAKER) (test code = 2.3 mg/dL 1.6-2.6 627) Car Oiler ID - [id number] 22:46:15 Test Item Value Reference Range Interpretation Comments PHOSPHORUS (BEAKER) (test code = 2.7 mg/dL 2.3-4.7 604) Car Oiler ID - BSCBC W/PLT COUNT & AUTO [id number] 22:24:24 Test Item Value Reference Range Interpretation Comments WHITE BLOOD CELL COUNT (BEAKER) 18.4 K/ L 3.5-10.5 H (test code = 775) RED BLOOD CELL COUNT (BEAKER) 3.68 M/ L 3.93-5.22 L (test code = 761) HEMOGLOBIN (BEAKER) (test code = 9.3 GM/DL 11.2-15.7 L 410) HEMATOCRIT (BEAKER) (test code = 30.8 % 34.1-44.9 L 411) MEAN CORPUSCULAR VOLUME (BEAKER) 83.7 fL 79.4-94.8 (test code = 753) MEAN CORPUSCULAR HEMOGLOBIN 25.3 pg 25.6-32.2 L (BEAKER) (test code = 751) MEAN CORPUSCULAR HEMOGLOBIN CONC 30.2 GM/DL 32.2-35.5 L (BEAKER) (test code = 752) RED CELL DISTRIBUTION WIDTH 17.2 % 11.7-14.4 H (BEAKER) (test code = 412) PLATELET COUNT (BEAKER) (test 211 K/CU MM 150-450 code = 756) MEAN PLATELET VOLUME (BEAKER) 8.4 fL 9.4-12.3 L (test code = 754) NUCLEATED RED BLOOD CELLS 0 /100 WBC 0-0 (BEAKER) (test code = 413) POCT-GLUCOSE [id number] 22:19:16 Test Item Value Reference Range Interpretation Comments POC-GLUCOSE METER 174 mg/dL 70-110 H : TESTED A T [facility] 6720 (BEAKER) (test code = [facility] [place], 1538) 53285: Car Oiler/Techni giana ID = [id number] for Sp encer, Jose RAD, ABDOMEN/KUB, 1 VIEW [id number] 21:14:00REFERRING : DI COTTON MD....[facility]->NG tube pkacementShould this be performed at the bedside?->YesCH[facility] : 1975 Sex: FFINAL REPORT EXAM: KUB CLINICAL HISTORY: G-tube placement FINDINGS: The tip of the nasogastric tube overlies the mid gastric body. There is nonobstructive bowel gas pattern. The regional osseous structures are unremarkable. The patient is status post cholecystectomy. Signed: [facility] Verified Date/Time: 01/09/2022 21:14:21 POCT-GLUCOSE [id number] 20:59:49 Test Item Value Reference Range Interpretation Comments POC-GLUCOSE METER 185 mg/dL 70-110 H : [facility] ([place]) (test code = [facility], 1538) 57227: Car Oiler/Techni giana ID = [id number] for Sp encer, Jose POCT-GLUCOSE [id number] 19:36:55 Test Item Value Reference Range Interpretation Comments POC-GLUCOSE METER 172 mg/dL 70-110 H : TESTED A T [facility] 6720 ([place]) (test code = [facility], 1538) 92027: Car Oiler/Techni giana ID = [id number] for Sp encer, Jose POCT-GLUCOSE [id number] 17:58:11 Test Item Value Reference Range Interpretation Comments POC-GLUCOSE METER 152 mg/dL 70-110 H : TESTED A T [facility] 6720 (BEAKER) (test code = [facility], 1538) 15247: Car Oiler/Techni giana ID = [id number] for DE NNALEXANDRO MERIDA POCT-GLUCOSE [id number] 17:44:30 Test Item Value Reference Range Interpretation Comments POC-GLUCOSE METER 176 mg/dL 70-110 H : TESTED A T [facility] 6720 (BEAKER) (test code = [facility], 1538) 67755: Car Oiler/Techni giana ID = [id number] for Pr iest (contract), Jsoe helle POCT-GLUCOSE [id number] 16:02:38 Test Item Value Reference Range Interpretation Comments POC-GLUCOSE METER 194 mg/dL 70-110 H : TESTED A T [facility] 6720 (BEAKER) (test code = [facility], 1538) 63559: Car Oiler/Techni giana ID = [id number] for Pr iest (contract), Jose helle [id number] 15:23:28 Test Item Value Reference Range Interpretation Comments PHOSPHORUS (BEAKER) (test code = 1.9 mg/dL 2.3-4.7 L 604) Car Oiler ID - BSRAD, CHEST, 1 VIEW, NON [id number] 15:18:00REFERRING : DI COTTON MD....1495Reason for exam:->post opShould this be performed at the bedside?->Yes [facility] : 1975 Sex: FFINAL REPORT EXAM: Chest one view CLINICAL HISTORY: Postop FINDINGS: The tip of the internal jugular central venous catheter overlies the cavoatrial junction. The tip of the nasogastric tube is below the diaphragm and not visualized. There is cardiomegaly with mild bilateral pulmonary edema. There is no evidence of pleural effusion or pneumothorax. The regional osseous structures are unremarkable. Signed: Claudio Cano MDReport Verified Date/Time: 01/09/2022 15:18:33 POCT-GLUCOSE [id number] 15:00:37 Test Item Value Reference Range Interpretation Comments POC-GLUCOSE METER 218 mg/dL 70-110 H : TESTED A T [facility] 6720 (BEAKER) (test code = [facility], 1538) 49036: Car Oiler/Techni giana ID = [id number] for Pr iest (contract), Jose helle Manual [id number] 14:09:15 Test Item Value Reference Range Interpretation Comments % Neutros (test code = 81 % 2816) % Lymphs (test code = 7 % 2817) % Monos (test code = 3 % 2818) % Eos (test code = 2 % 2819) % Bands (test code = 7 % 0-10 2826) # Neutros (test code = 15.55 K/ul 1.56-6.13 H 2830) # Lymphs (test code = 1.34 K/ul 1.18-3.74 2831) # Monos (test code = 0.58 K/uL 0.24-0.36 H 2832) # Eos (test code = 0.38 K/uL 0.04-0.36 H 2834) # Bands (test code = 1.34 K/uL 0.00-0.80 H 2840) Total Counted (test 100 code = 1351) WBC Morphology (test Normal code = 487) Platelet Morphology Normal (test code = 486) Polychromasia (test 1+ few code = 478) Anisocytosis (test code 1+ few = 961) Microcytes (test code = 1+ few 965) Artifact (test code = Present 3432) Platelet Conc (test Adequate code = 3438) THAI (test code = THAI) Car Oiler ID - Lorena Romero comments: Slide comments: Lab Interpretation Abnormal (test code = 28258-0) [facility](CELLAVISION MANUAL DIFF)2022-01-09 14:09:15 Test Item Value Reference Range Interpretation Comments NEUTROPHILS - REL 81 % (CELLAVISION)(BEAKER) (test code = 2816) LYMPHOCYTES - REL 7 % (CELLAVISION)(BEAKER) (test code = 2817) MONOCYTES - REL 3 % (CELLAVISION)(BEAKER) (test code = 2818) EOSINOPHILS - REL 2 % (CELLAVISION)(BEAKER) (test code = 2819) BANDS - REL (CELLAVISION)(BEAKER) 7 % 0-10 (test code = 2826) NEUTROPHILS - ABS 15.55 K/ul 1.56-6.13 H (CELLAVISION)(BEAKER) (test code = 2830) LYMPHOCYTES - ABS 1.34 K/ul 1.18-3.74 (CELLAVISION)(BEAKER) (test code = 2831) MONOCYTES - ABS 0.58 K/uL 0.24-0.36 H (CELLAVISION)(BEAKER) (test code = 2832) EOSINOPHILS - ABS 0.38 K/uL 0.04-0.36 H (CELLAVISION)(BEAKER) (test code = 2834) BANDS - ABS (CELLAVISION)(BEAKER) 1.34 K/uL 0.00-0.80 H (test code = 2840) TOTAL COUNTED (BEAKER) (test code 100 = 1351) WBC MORPHOLOGY (BEAKER) (test code Normal = 487) PLT MORPHOLOGY (BEAKER) (test code Normal = 486) POLYCHROMATOPHILLIC RBCS(BEAKER) 1+ few (test code = 478) ANISOCYTOSIS (BEAKER) (test code = 1+ few 961) MICROCYTES (BEAKER) (test code = 1+ few 965) ARTIFACT (CELLAVISION)(BEAKER) Present (test code = 3432) PLATELET CONCENTRATION Adequate (CELLAVISION)(BEAKER) (test code = 3438) Car Oiler ID - Lorena Romero comments: Slide comments:CBC W/PLT COUNT & AUTO [id number] 14:09:14 Test Item Value Reference Range Interpretation Comments WHITE BLOOD CELL COUNT (BEAKER) 19.2 K/ L 3.5-10.5 H (test code = 775) RED BLOOD CELL COUNT (BEAKER) 3.79 M/ L 3.93-5.22 L (test code = 761) HEMOGLOBIN (BEAKER) (test code = 9.7 GM/DL 11.2-15.7 L 410) HEMATOCRIT (BEAKER) (test code = 31.4 % 34.1-44.9 L 411) MEAN CORPUSCULAR VOLUME (BEAKER) 82.8 fL 79.4-94.8 (test code = 753) MEAN CORPUSCULAR HEMOGLOBIN 25.6 pg 25.6-32.2 (BEAKER) (test code = 751) MEAN CORPUSCULAR HEMOGLOBIN CONC 30.9 GM/DL 32.2-35.5 L (BEAKER) (test code = 752) RED CELL DISTRIBUTION WIDTH 17.1 % 11.7-14.4 H (BEAKER) (test code = 412) PLATELET COUNT (BEAKER) (test 242 K/CU MM 150-450 code = 756) MEAN PLATELET VOLUME (BEAKER) 8.3 fL 9.4-12.3 L (test code = 754) NUCLEATED RED BLOOD CELLS 0 /100 WBC 0-0 (BEAKER) (test code = 413) BASIC METABOLIC [id number] 13:59:26 Test Item Value Reference Range Interpretation Comments SODIUM (BEAKER) 145 meq/L 136-145 (test code = 381) POTASSIUM (BEAKER) 4.2 meq/L 3.5-5.1 (test code = 379) CHLORIDE (BEAKER) 111 meq/L 98-107 H (test code = 382) CO2 (BEAKER) (test 27 meq/L 22-29 code = 355) BLOOD UREA NITROGEN 12 mg/dL 7-21 (BEAKER) (test code = 354) CREATININE (BEAKER) 0.98 mg/dL 0.57-1.25 (test code = 358) GLUCOSE RANDOM 240 mg/dL 70-105 H (BEAKER) (test code = 652) CALCIUM (BEAKER) 8.9 mg/dL 8.4-10.2 (test code = 697) EGFR (BEAKER) (test 75 mL/min/1.73 ESTIMA KYLIE GFR IS code = 1092) sq m NOT ACCURATE CREATININE CLEARANCE IN PREDICTING GLOMERULAR FILTRATION RATE . ESTIMATED GFR I S NOT APPLICABLE FOR DIALYSIS PATIEN TS. Car Oiler ID Ly AGUIRREpecimen slightly ictericHEPATIC FUNCTION [id number] 13:59:26 Test Item Value Reference Range Interpretation Comments TOTAL PROTEIN (BEAKER) (test code = 5.8 gm/dL 6.0-8.3 L 770) ALBUMIN (BEAKER) (test code = 1145) 4.0 g/dL 3.5-5.0 BILIRUBIN TOTAL (BEAKER) (test code 3.5 mg/dL 0.2-1.2 H = 377) BILIRUBIN DIRECT (BEAKER) (test 2.2 mg/dL 0.1-0.5 H code = 706) ALKALINE PHOSPHATASE (BEAKER) (test 36 U/L 40-150 L code = 346) AST (SGOT) (BEAKER) (test code = 449 U/L 5-34 H 353) ALT (SGPT) (BEAKER) (test code = 324 U/L 6-55 H 347) Car Oiler ID Ly Hansonimen slightly [id number] 13:59:25 Test Item Value Reference Range Interpretation Comments PHOSPHORUS (BEAKER) (test code = 1.8 mg/dL 2.3-4.7 L 604) Car Oiler ID Ly LEE LPOCT-GLUCOSE [id number] 13:55:48 Test Item Value Reference Range Interpretation Comments POC-GLUCOSE METER 206 mg/dL 70-110 H : TESTED A T [facility] 6720 (BEAKER) (test code = [place], 1538) [address]: Car Oiler/Techni giana ID = [id number] for Pr iest (contract), Jose helle PROTHROMBIN TIME/[id number] 13:52:40 Test Item Value Reference Range Interpretation Comments PROTIME (BEAKER) 20.9 seconds 11.9-14.2 H (test code = 759) INR (BEAKER) (test 1.83 See_Comment [Automat ed message] code = 370) The system [employer] generated this result transmitted ref erence range: <=5.90. The reference range was not used to int erpret this result as normal/abnormal . RECOMMENDED COUMADIN/WARFARIN INR THERAPY RANGESSTANDARD DOSE: 2.0 - 3.0 Includes: PROPHYLAXIS for venous thrombosis, systemic embolization; TREATMENT for venous thrombosis and/or pulmonary embolus.HIGH RISK: Target INR is 2.5-3.5 for patients with mechanical heart valves.POCT-GLUCOSE [id number] 13:05:24 Test Item Value Reference Range Interpretation Comments POC-GLUCOSE METER 220 mg/dL 70-110 H : TESTED A T [facility] 6720 ([place]) (test code = [employer] [employer] [facility], 1538) [address]: Car Oiler/Techni giana ID = [id number] for Pr iest (contract), Jose helle POCT-GLUCOSE [id number] 12:06:22 Test Item Value Reference Range Interpretation Comments POC-GLUCOSE METER 218 mg/dL 70-110 H : TESTED A T [facility] 6720 ([place]) (test code = [employer] [facility], 1538) [address]: Car Oiler/Techni giana ID = [id number] for Cl ymer (contract), Fidel in U/S, ABDOMINAL, WITH [id number] 11:21:00REFERRING : DI COTTON MD....[id number] for exam:->s/p hepatectomy- assess vessels and assess for fluid collections, leak [facility] : 1975 Sex: FFINAL REPORT TECHNIQUE: Grayscale ultrasound of the abdomen with color Doppler and spectral Doppler ultrasound of the portal/hepatic vasculature. INDICATION: s/p hepatectomy- assess vessels and assess for fluid collections, leak. COMPARISON: Ultrasound from 09/20/2021. MRI from 11/29/2021 FINDINGS: LIVER: Recent liver resection. Increased echogenicity of the residual liver. Smooth naya er contour. No focal liver lesions. HEPATIC VASCULATURE: The main portal vein measures 1.3 cm in diameter. The right hepatic artery, right hepatic vein, and right portal vein are not visualized. The rest of the liver vasculature is patent. The proper hepatic arterial resistive index is 0.7 with acceleration time of 0.06 seconds. The left hepatic artery resistive index is 0.69. BILIARY:Gallbladder: Surgically absentCommon bile duct measures 0.5 cm, within normal limits. No intrahepatic biliary ductaldilatation. PANCREAS: Incompletely visualized due to overlying bowel gas. The partially visualized pancreatic body is normal. SPLEEN: The spleen is mildly enlarged at 13.1 cm in length. PERITONEUM: There is some questionable complex fluid near the hepatic dome. KIDNEYS: Normal in size bilaterally. No hydronephrosis. No sonographically evident solid mass lesion. MIDLINE VASCULATURE: The visualized inferior vena cava is patent. The maximum visualized aortic diameter is 2 cm. Splenic artery and vein are patent. IMPRESSION: 1.The hepatic vasculature is patent. There is likely complex fluid adjacent to the hepatic dome, near the site of resection. 2.Diffuse fatty infiltration of the liver with mild splenomegaly. Signed: [facility] Verified Date/Time: 01/09/2022 11:21:03 POCT-GLUCOSE [id number] 10:53:39 Test Item Value Reference Range Interpretation Comments POC-GLUCOSE METER 242 mg/dL 70-110 H : TESTED A T [facility] 6720 ([place]) (test code = [employer] [facility], 1538) [address]: Car Oiler/Techni giana ID = [id number] for Pr ie (contract) Jose aleksey POCT-GLUCOSE [id number] 09:57:59 Test Item Value Reference Range Interpretation Comments POC-GLUCOSE METER 265 mg/dL 70-110 H : TESTED A T [facility] 6720 ([place]) (test code = [facility] [employer] [facility], 1538) [address]: Car Oiler/Techni giana ID = [id number] for Pr iest (contract), Jose helle Lactic Acid, [id number] 09:03:58 Test Item Value Reference Range Interpretation Comments Lactate, Art (test 3.8 mmol/L 0.5-2.2 H Specimen code = 2874) slightly hemolyzed THAI (test code = THAI) Car Oiler ID - CORNELIA CSpecimen slightly icteric Lab Interpretation Abnormal (test code = 75039-2) [facility]LACTIC ACID, [id number] 09:03:58 Test Item Value Reference Range Interpretation Comments LACTATE BLOOD 3.8 mmol/L 0.5-2.2 H Specimen sligh tly ARTERIAL (2) (BEAKER) hemoly zed (test code = 2874) Car Oiler ID - CORNELIA CSpecimen slightly ictericPOCT-GLUCOSE [id number] 08:13:42 Test Item Value Reference Range Interpretation Comments POC-GLUCOSE METER 279 mg/dL 70-110 H : TESTED A T [facility] 6720 (BEAKER) (test code = [place], 1538) [address]: Car Oiler/Techni giana ID = [id number] for Pr iest (contract), Jose helle RAD, CHEST, 1 VIEW, NON [id number] 08:01:00REFERRING : DI COTTON MD....[id number]:->overloadShould this be performed at the [facility]ia?->Yes[facility] : 1975 Sex: FFINAL REPORT RAD, CHEST, 1 VIEW, NON DEPT INDICATION: overload COMPARISON: Prior day's exam TECHNIQUE: Portable frontal view of the chest. FINDINGS: Support Lines and Devices: Stable. Lungs and pleura: Unchanged airspace and pleural opacities. No pneumothorax identified. Heart and me diastinum: Stable contours. Stable surgical changes. Additional findings: Chronic left midclavicularfracture. IMPRESSION: 1.No significant change from prior exam.2.Left retrocardiac opacity, representing singly or in combination airspace disease, atelectasis, or pleural effusion. Signed: Linus Cantu Verified Date/Time: 01/09/2022 08:01:02 Reading Location: [facility] Radiology Reading Room POCT-GLUCOSE [id number] 07:08:49 Test Item Value Reference Range Interpretation Comments POC-GLUCOSE METER 300 mg/dL 70-110 H : TESTED A T [facility] 6720 ([place]) (test code = JASONMS Dudley [facility], 1538) [address]: Car Oiler/Techni giana ID = [id number] for BR OWN, NATAN POCT-GLUCOSE [id number] 06:07:19 Test Item Value Reference Range Interpretation Comments POC-GLUCOSE METER 298 mg/dL 70-110 H : TESTED A T [facility] 6720 (BEAKER) (test code = MARIA GUADALUPE [place] [facility], 1538) [address]: Car Oiler/Techni giana ID = [id number] for BR OWN, NATAN LACTIC ACID, [id number] 04:34:34 Test Item Value Reference Range Interpretation Comments LACTATE BLOOD ARTERIAL (2) 4.1 mmol/L 0.5-2.2 HH (BEAKER) (test code = 2874) Car Oiler ID - ROSA LSpecimen slightly jcghvcqQwmoqgh-[id number] 04:22:07 Test Item Value Reference Range Interpretation Comments Glucose (test code = 309 mg/dL 70-105 H 2345-7) THAI (test code = THAI) Car Oiler ID - ROSA L Lab Interpretation (test Abnormal code = 73321-1) [facility] campusPotassium-[id number] 04:22:07 Test Item Value Reference Range Interpretation Comments Potassium (test code = 4.4 meq/L 3.5-5.1 2823-3) THAI (test code = THAI) Car Oiler ID - ROSA L Lab Interpretation (test Normal code = 57413-0) [facility] CenterOogvynRVKWUYIXK3227-01-57 04:22:07 Test Item Value Reference Range Interpretation Comments POTASSIUM (BEAKER) (test code = 4.4 meq/L 3.5-5.1 379) Car Oiler ID - ROSA [id number] 04:22:07 Test Item Value Reference Range Interpretation Comments GLUCOSE RANDOM (BEAKER) (test code 309 mg/dL 70-105 H = 652) Car Oiler ID - ROSA LPOCT-GLUCOSE [id number] 04:07:33 Test Item Value Reference Range Interpretation Comments POC-GLUCOSE METER 297 mg/dL 70-110 H : TESTED A T [facility] 6720 (BEAKER) (test code = MARIA GUADALU[address] [place], 1538) [address]: Car Oiler/Techni giana ID = [id number] for NATAN CONNELLY HEPATIC FUNCTION [id number] 03:14:33 Test Item Value Reference Range Interpretation Comments TOTAL PROTEIN (BEAKER) (test code = 5.5 gm/dL 6.0-8.3 L 770) ALBUMIN (BEAKER) (test code = 1145) 3.7 g/dL 3.5-5.0 BILIRUBIN TOTAL (BEAKER) (test code 4.5 mg/dL 0.2-1.2 H = 377) BILIRUBIN DIRECT (BEAKER) (test 3.3 mg/dL 0.1-0.5 H code = 706) ALKALINE PHOSPHATASE (BEAKER) (test 37 U/L 40-150 L code = 346) AST (SGOT) (BEAKER) (test code = 453 U/L 5-34 H 353) ALT (SGPT) (BEAKER) (test code = 310 U/L 6-55 H 347) Car Oiler ID - BSSpecimen slightly ejmsgluDGEHHBUSKX4617-94-93 03:14:32 Test Item Value Reference Range Interpretation Comments PHOSPHORUS (BEAKER) (test code = 4.4 mg/dL 2.3-4.7 604) Car Oiler ID - BSBASIC METABOLIC [id number] 03:14:32 Test Item Value Reference Range Interpretation Comments SODIUM (BEAKER) 138 meq/L 136-145 (test code = 381) POTASSIUM (BEAKER) 4.4 meq/L 3.5-5.1 (test code = 379) CHLORIDE (BEAKER) 106 meq/L 98-107 (test code = 382) CO2 (BEAKER) (test 22 meq/L 22-29 code = 355) BLOOD UREA NITROGEN 13 mg/dL 7-21 (BEAKER) (test code = 354) CREATININE (BEAKER) 1.03 mg/dL 0.57-1.25 (test code = 358) GLUCOSE RANDOM 321 mg/dL 70-105 H (BEAKER) (test code = 652) CALCIUM (BEAKER) 8.6 mg/dL 8.4-10.2 (test code = 697) EGFR (BEAKER) (test 71 mL/min/1.73 ESTIMA KYLIE GFR IS code = 1092) sq m NOT ACCURATE CREATININE CLEARANCE IN PREDICTING GLOMERULAR FILTRATION RATE . ESTIMATED GFR I S NOT APPLICABLE FOR DIALYSIS PATIEN TS. Car Oiler ID - BSSpecimen slightly [id number] 03:14:31 Test Item Value Reference Range Interpretation Comments MAGNESIUM (BEAKER) (test code = 2.2 mg/dL 1.6-2.6 627) Car Oiler ID - [id number] 02:27:21 Test Item Value Reference Range Interpretation Comments PARTIAL THROMBOPLASTIN TIME 31.8 seconds 22.5-36.0 (BEAKER) (test code = 760) PROTHROMBIN TIME/[id number] 02:26:38 Test Item Value Reference Range Interpretation Comments PROTIME (BEAKER) 19.2 seconds 11.9-14.2 H (test code = 759) INR (BEAKER) (test 1.64 See_Comment [Automat ed message] code = 370) The system [employer] generated this result transmitted ref erence range: <=5.90. The reference range was not used to int erpret this result as normal/abnormal . RECOMMENDED COUMADIN/WARFARIN INR THERAPY RANGESSTANDARD DOSE: 2.0 - 3.0 Includes: PROPHYLAXIS for venous thrombosis, systemic embolization; TREATMENT for venous thrombosis and/or pulmonary embolus.HIGH RISK: Target INR is 2.5-3.5 for patients with mechanical heart valves.CALCIUM, [id number] 02:22:56 Test Item Value Reference Range Interpretation Comments CALCIUM IONIZED (BEAKER) (test 1.10 mmol/L 1.12-1.27 L code = 698) PH, BLOOD (BEAKER) (test code = 7.35 1810) Blood gas, [id number] 02:22:55 Test Item Value Reference Range Interpretation Comments pH, Arterial (test code 7.35 7.35-7.45 = 2744-1) pCO2, Arterial (test 42 See_Comment [Autom ated code = 2018-) message] The system which generated this result transmitted reference range : 35 - 45 mm Hg. The reference range was not used to interpret this result as normal/abnormal . pO2, Arterial (test 111 See_Comment H [Automa kylie code = 2703-7) message] The system which generated this result transmitted reference range : 80 - 90 mm Hg. The reference range was not used to interpret this result as normal/abnormal . O2 Sat, Arterial (test 97.8 % 96.0-97.0 H code = 2708-6) HCO3, Arterial (test 23 mmol/L -29 code = 1960-4) Base Excess, Arterial -2.8 mmol/L -2.0-3.0 L (test code = 1925-7) Patient Temperature 37.1 (test code = 8310-5) FIO2 (test code = 1819) 36 Lab Interpretation Abnormal (test code = 69211-6) [facility] campusBLOOD GAS, [id number] 02:22:55 Test Item Value Reference Range Interpretation Comments PH ARTERIAL (BEAKER) (test code = 7.35 7.35-7.45 383) PCO2 ARTERIAL (BEAKER) (test code 42 mm Hg 35-45 = 384) PO2 ARTERIAL (BEAKER) (test code 111 mm Hg 80-90 H = 385) O2 SATURATION ARTERIAL (BEAKER) 97.8 % 96.0-97.0 H (test code = 386) HCO3 ARTERIAL (BEAKER) (test code 23 mmol/L 21-29 = 388) BASE EXCESS ARTERIAL (BEAKER) -2.8 mmol/L -2.0-3.0 L (test code = 387) PATIENT TEMPERATURE (BEAKER) 37.1 (test code = 1818) FIO2 (BEAKER) (test code = 1819) 36.0 CBC (HEMOGRAM ONLY)2022-01-09 02:17:00 Test Item Value Reference Range Interpretation Comments WHITE BLOOD CELL COUNT (BEAKER) 19.5 K/ L 3.5-10.5 H (test code = 775) RED BLOOD CELL COUNT (BEAKER) 3.89 M/ L 3.93-5.22 L (test code = 761) HEMOGLOBIN (BEAKER) (test code = 10.0 GM/DL 11.2-15.7 L 410) HEMATOCRIT (BEAKER) (test code = 31.4 % 34.1-44.9 L 411) MEAN CORPUSCULAR VOLUME (BEAKER) 80.7 fL 79.4-94.8 (test code = 753) MEAN CORPUSCULAR HEMOGLOBIN 25.7 pg 25.6-32.2 (BEAKER) (test code = 751) MEAN CORPUSCULAR HEMOGLOBIN CONC 31.8 GM/DL 32.2-35.5 L (BEAKER) (test code = 752) RED CELL DISTRIBUTION WIDTH 16.6 % 11.7-14.4 H (BEAKER) (test code = 412) PLATELET COUNT (BEAKER) (test 223 K/CU MM 150-450 code = 756) MEAN PLATELET VOLUME (BEAKER) 8.3 fL 9.4-12.3 L (test code = 754) NUCLEATED RED BLOOD CELLS 0 /100 WBC 0-0 (BEAKER) (test code = 413) [id number] 21:54:03 Test Item Value Reference Range Interpretation Comments MAGNESIUM (BEAKER) (test code = 2.3 mg/dL 1.6-2.6 627) Car Oiler ID - [id number] 21:40:02 Test Item Value Reference Range Interpretation Comments PHOSPHORUS (BEAKER) (test code = 5.1 mg/dL 2.3-4.7 H 604) Car Oiler ID - BSHGB/HCT (H&H)-Stat [id number] 21:38:06 Test Item Value Reference Range Interpretation Comments Hemoglobin (test code = 11.3 See_Comment L [Au tomated message] 786-4) The system [employer] generated this result transmitted ref erence range: 12.0 - 1 5.0 GM/DL. The refe rence range was not u sed to interpret this result as normal/abnor mal. Hematocrit (test code = 33.0 % 36.0-45.0 L 4544-3) Lab Interpretation (test Abnormal code = 14955-3) [facility] ([facility]&H[facility] - STAT [id number] 21:38:06 Test Item Value Reference Range Interpretation Comments HEMOGLOBIN (BEAKER) (test code = 11.3 GM/DL 12.0-15.0 L 410) HEMATOCRIT (BEAKER) (test code = 33.0 % 36.0-45.0 L 411) Glucose-Stat [id number] 21:38:05 Test Item Value Reference Range Interpretation Comments Glucose (test code = 2345-7) 253 mg/dL 70-110 H Lab Interpretation (test code = Abnormal 05265-7) [facility]GLUCOSE-STAT [id number] 21:38:05 Test Item Value Reference Range Interpretation Comments GLUCOSE RANDOM (BEAKER) (test code 253 mg/dL 70-110 H = 652) BLOOD GAS, [id number] 21:38:04 Test Item Value Reference Range Interpretation Comments PH ARTERIAL (BEAKER) (test code = 7.31 7.35-7.45 L 383) PCO2 ARTERIAL (BEAKER) (test code 41 mm Hg 35-45 = 384) PO2 ARTERIAL (BEAKER) (test code 150 mm Hg 80-90 H = 385) O2 SATURATION ARTERIAL (BEAKER) 98.7 % 96.0-97.0 H (test code = 386) HCO3 ARTERIAL (BEAKER) (test code 20 mmol/L 21-29 L = 388) BASE EXCESS ARTERIAL (BEAKER) -5.9 mmol/L -2.0-3.0 L (test code = 387) PATIENT TEMPERATURE (BEAKER) 37.2 (test code = 1818) FIO2 (BEAKER) (test code = 1819) 36.0 Potassium-Stat [id number] 21:37:21 Test Item Value Reference Range Interpretation Comments Potassium (test code = 2823-3) 5.1 meq/L 3.6-5.5 Lab Interpretation (test code = Normal 76788-7) [facility]POTASSIUM-STAT [id number] 21:37:21 Test Item Value Reference Range Interpretation Comments POTASSIUM (BEAKER) (test code = 5.1 meq/L 3.6-5.5 379) Sodium Na-Stat [id number] 21:37:20 Test Item Value Reference Range Interpretation Comments Sodium (test code = 2951-2) 136 meq/L 136-145 Lab Interpretation (test code = Normal 17149-3) [facility] [id number] 21:37:20 Test Item Value Reference Range Interpretation Comments SODIUM (BEAKER) (test code = 381) 136 meq/L 136-145 CBC (HEMOGRAM ONLY)2022-01-08 21:18:14 Test Item Value Reference Range Interpretation Comments WHITE BLOOD CELL COUNT (BEAKER) 19.5 K/ L 3.5-10.5 H (test code = 775) RED BLOOD CELL COUNT (BEAKER) 4.16 M/ L 3.93-5.22 (test code = 761) HEMOGLOBIN (BEAKER) (test code = 10.6 GM/DL 11.2-15.7 L 410) HEMATOCRIT (BEAKER) (test code = 34.6 % 34.1-44.9 411) MEAN CORPUSCULAR VOLUME (BEAKER) 83.2 fL 79.4-94.8 (test code = 753) MEAN CORPUSCULAR HEMOGLOBIN 25.5 pg 25.6-32.2 L (BEAKER) (test code = 751) MEAN CORPUSCULAR HEMOGLOBIN CONC 30.6 GM/DL 32.2-35.5 L (BEAKER) (test code = 752) RED CELL DISTRIBUTION WIDTH 16.5 % 11.7-14.4 H (BEAKER) (test code = 412) PLATELET COUNT (BEAKER) (test 253 K/CU MM 150-450 code = 756) MEAN PLATELET VOLUME (BEAKER) 8.2 fL 9.4-12.3 L (test code = 754) NUCLEATED RED BLOOD CELLS 0 /100 WBC 0-0 (BEAKER) (test code = 413) POCT-GLUCOSE [id number] 21:12:35 Test Item Value Reference Range Interpretation Comments POC-GLUCOSE METER 225 mg/dL 70-110 H : TESTED A T [facility] 6720 (BEAKER) (test code = [place] [address], 1538) [address]: Car Oiler/Techni giana ID = [id number] for NATAN CONNELLY LACTIC ACID, [id number] 18:12:02 Test Item Value Reference Range Interpretation Comments LACTATE BLOOD ARTERIAL (2) 3.2 mmol/L 0.5-2.2 H (BEAKER) (test code = 2874) Car Oiler ID - [id number] 18:10:21 Test Item Value Reference Range Interpretation Comments PARTIAL THROMBOPLASTIN TIME 30.3 seconds 22.5-36.0 (BEAKER) (test code = 760) [id number] 18:10:20 Test Item Value Reference Range Interpretation Comments Fibrinogen (test code = 3255-7) 196 mg/dl 225-434 L Lab Interpretation (test code = Abnormal 24865-6) [facility] campusFIBRINOGEN2022-03-29 18:10:20 Test Item Value Reference Range Interpretation Comments FIBRINOGEN LEVEL (BEAKER) (test 196 mg/dl 225-434 L code = 658) PROTHROMBIN [id number] 18:09:58 Test Item Value Reference Range Interpretation Comments PROTIME (BEAKER) 17.6 seconds 11.9-14.2 H (test code = 759) INR (BEAKER) (test 1.47 See_Comment [Automat ed message] code = 370) The system [employer] generated this result transmitted ref erence range: <=5.90. The reference range was not used to int erpret this result as normal/abnormal . RECOMMENDED COUMADIN/WARFARIN INR THERAPY RANGESSTANDARD DOSE: 2.0 - 3.0 Includes: PROPHYLAXIS for venous thrombosis, systemic embolization; TREATMENT for venous thrombosis and/or pulmonary embolus.HIGH RISK: Target INR is 2.5-3.5 for patients with mechanical heart valves.CBC (HEMOGRAM ONLY)2022-01-08 17:58:19 Test Item Value Reference Range Interpretation Comments WHITE BLOOD CELL COUNT (BEAKER) 14.8 K/ L 3.5-10.5 H (test code = 775) RED BLOOD CELL COUNT (BEAKER) 4.05 M/ L 3.93-5.22 (test code = 761) HEMOGLOBIN (BEAKER) (test code = 10.4 GM/DL 11.2-15.7 L 410) HEMATOCRIT (BEAKER) (test code = 33.0 % 34.1-44.9 L 411) MEAN CORPUSCULAR VOLUME (BEAKER) 81.5 fL 79.4-94.8 (test code = 753) MEAN CORPUSCULAR HEMOGLOBIN 25.7 pg 25.6-32.2 (BEAKER) (test code = 751) MEAN CORPUSCULAR HEMOGLOBIN CONC 31.5 GM/DL 32.2-35.5 L (BEAKER) (test code = 752) RED CELL DISTRIBUTION WIDTH 16.6 % 11.7-14.4 H (BEAKER) (test code = 412) PLATELET COUNT (BEAKER) (test 244 K/CU MM 150-450 code = 756) MEAN PLATELET VOLUME (BEAKER) 8.2 fL 9.4-12.3 L (test code = 754) NUCLEATED RED BLOOD CELLS 0 /100 WBC 0-0 (BEAKER) (test code = 413) [id number] 17:36:22 Test Item Value Reference Range Interpretation Comments PHOSPHORUS (BEAKER) (test code = 3.3 mg/dL 2.3-4.7 604) Car Oiler ID - BSPOCT-GLUCOSE [id number] 16:54:41 Test Item Value Reference Range Interpretation Comments POC-GLUCOSE METER 158 mg/dL 70-110 H : TESTED A T [facility] 6720 (BEAKER) (test code = MARIA GUADALUPE [place] [facility], 1538) [address]: Car Oiler/Techni giana ID = [id number] for SHIV SCHNEIDER (CELLAVISION MANUAL DIFF)2022-01-08 14:49:48 Test Item Value Reference Range Interpretation Comments NEUTROPHILS - REL 73 % (CELLAVISION)(BEAKER) (test code = 2816) LYMPHOCYTES - REL 13 % (CELLAVISION)(BEAKER) (test code = 2817) MONOCYTES - REL 14 % (CELLAVISION)(BEAKER) (test code = 2818) NEUTROPHILS - ABS 8.98 K/ul 1.56-6.13 H (CELLAVISION)(BEAKER) (test code = 2830) LYMPHOCYTES - ABS 1.60 K/ul 1.18-3.74 (CELLAVISION)(BEAKER) (test code = 2831) MONOCYTES - ABS 1.72 K/uL 0.24-0.36 H (CELLAVISION)(BEAKER) (test code = 2832) TOTAL COUNTED (BEAKER) (test code = 100 1351) WBC MORPHOLOGY (BEAKER) (test code Normal = 487) PLT MORPHOLOGY (BEAKER) (test code Normal = 486) ANISOCYTOSIS (BEAKER) (test code = 1+ few 961) MICROCYTES (BEAKER) (test code = 1+ few 965) ARTIFACT (CELLAVISION)(BEAKER) Present (test code = 3432) PLATELET CONCENTRATION Adequate (CELLAVISION)(BEAKER) (test code = 3438) Car Oiler ID - Poppy Cueto comments: Slide comments:HEPATIC FUNCTION PANEL 2022-01-08 14:29:37 Test Item Value Reference Range Interpretation Comments TOTAL PROTEIN (BEAKER) (test code = 5.5 gm/dL 6.0-8.3 L 770) ALBUMIN (BEAKER) (test code = 1145) 3.7 g/dL 3.5-5.0 BILIRUBIN TOTAL (BEAKER) (test code 1.7 mg/dL 0.2-1.2 H = 377) BILIRUBIN DIRECT (BEAKER) (test 1.0 mg/dL 0.1-0.5 H code = 706) ALKALINE PHOSPHATASE (BEAKER) (test 31 U/L 40-150 L code = 346) AST (SGOT) (BEAKER) (test code = 758 U/L 5-34 H 353) ALT (SGPT) (BEAKER) (test code = 401 U/L 6-55 H 347) Car Oiler ID - ROSA [id number] 14:29:36 Test Item Value Reference Range Interpretation Comments MAGNESIUM (BEAKER) (test code = 2.2 mg/dL 1.6-2.6 627) [employer] ID - ROSA LBASIC METABOLIC [id number] 14:29:35 Test Item Value Reference Range Interpretation Comments SODIUM (BEAKER) 140 meq/L 136-145 (test code = 381) POTASSIUM (BEAKER) 4.3 meq/L 3.5-5.1 (test code = 379) CHLORIDE (BEAKER) 108 meq/L 98-107 H (test code = 382) CO2 (BEAKER) (test 21 meq/L 22-29 L code = 355) BLOOD UREA NITROGEN 12 mg/dL 7-21 (BEAKER) (test code = 354) CREATININE (BEAKER) 0.85 mg/dL 0.57-1.25 (test code = 358) GLUCOSE RANDOM 142 mg/dL 70-105 H (BEAKER) (test code = 652) CALCIUM (BEAKER) 9.2 mg/dL 8.4-10.2 (test code = 697) EGFR (BEAKER) (test 88 mL/min/1.73 ESTIMA KYLIE GFR IS code = 1092) sq m NOT ACCURATE CREATININE CLEARANCE IN PREDICTING GLOMERULAR FILTRATION RATE . ESTIMATED GFR I S NOT APPLICABLE FOR DIALYSIS PATIEN TS. [employer] ID - PILUCINDA [id number] 14:29:19 Test Item Value Reference Range Interpretation Comments FIBRINOGEN LEVEL (BEAKER) (test 183 mg/dl 225-434 L code = 658) [id number] 14:24:34 Test Item Value Reference Range Interpretation Comments PARTIAL THROMBOPLASTIN TIME 33.2 seconds 22.5-36.0 (BEAKER) (test code = 760) LACTIC ACID, [id number] 14:24:17 Test Item Value Reference Range Interpretation Comments LACTATE BLOOD ARTERIAL (2) 3.0 mmol/L 0.5-2.2 H (BEAKER) (test code = 2874) Car [employer] ID - ROSA LPROTHROMBIN [id number] 14:23:58 Test Item Value Reference Range Interpretation Comments PROTIME (BEAKER) 17.4 seconds 11.9-14.2 H (test code = 759) INR (BEAKER) (test 1.45 See_Comment [Automat ed message] code = 370) The system [employer] generated this result transmitted ref erence range: <=5.90. The reference range was not used to int erpret this result as normal/abnormal . RECOMMENDED COUMADIN/WARFARIN INR THERAPY RANGESSTANDARD DOSE: 2.0 - 3.0 Includes: PROPHYLAXIS for venous thrombosis, systemic embolization; TREATMENT for venous thrombosis and/or pulmonary embolus.HIGH RISK: Target INR is 2.5-3.5 for patients with mechanical heart valves.Oxygen saturation, [id number] 14:16:14 Test Item Value Reference Range Interpretation Comments O2 Saturation (Measured) (test code = 85.0 % 06317-8) [facility] [id number] 14:16:14 Test Item Value Reference Range Interpretation Comments O2 SATURATION (MEASURED) (BEAKER) 85.0 % (test code = 1455) BLOOD GAS, [id number] 14:16:14 Test Item Value Reference Range Interpretation Comments PH ARTERIAL (BEAKER) (test code = 7.35 7.35-7.45 383) PCO2 ARTERIAL (BEAKER) (test code 40 mm Hg 35-45 = 384) PO2 ARTERIAL (BEAKER) (test code 197 mm Hg 80-90 H = 385) O2 SATURATION ARTERIAL (BEAKER) 99.3 % 96.0-97.0 H (test code = 386) HCO3 ARTERIAL (BEAKER) (test code 22 mmol/L 21-29 = 388) BASE EXCESS ARTERIAL (BEAKER) -3.9 mmol/L -2.0-3.0 L (test code = 387) PATIENT TEMPERATURE (BEAKER) 36.7 (test code = 1818) FIO2 (BEAKER) (test code = 1819) 50.0 HGB/HCT (H&H) - STAT [id number] 14:16:13 Test Item Value Reference Range Interpretation Comments HEMOGLOBIN (BEAKER) (test code = 10.6 GM/DL 12.0-15.0 L 410) HEMATOCRIT (BEAKER) (test code = 31.0 % 36.0-45.0 L 411) CALCIUM, [id number] 14:16:13 Test Item Value Reference Range Interpretation Comments CALCIUM IONIZED (BEAKER) (test 1.15 mmol/L 1.12-1.27 code = 698) PH, BLOOD (BEAKER) (test code = 7.34 1810) GLUCOSE-STAT [id number] 14:16:07 Test Item Value Reference Range Interpretation Comments GLUCOSE RANDOM (BEAKER) (test code 141 mg/dL 70-110 H = 652) POTASSIUM-STAT [id number] 14:15:57 Test Item Value Reference Range Interpretation Comments POTASSIUM (BEAKER) (test code = 4.0 meq/L 3.6-5.5 379) SODIUM NA-STAT [id number] 14:15:56 Test Item Value Reference Range Interpretation Comments SODIUM (BEAKER) (test code = 381) 137 meq/L 136-145 CBC (HEMOGRAM ONLY)2022-01-08 14:13:32 Test Item Value Reference Range Interpretation Comments WHITE BLOOD CELL COUNT (BEAKER) 12.3 K/ L 3.5-10.5 H (test code = 775) RED BLOOD CELL COUNT (BEAKER) 3.90 M/ L 3.93-5.22 L (test code = 761) HEMOGLOBIN (BEAKER) (test code = 10.0 GM/DL 11.2-15.7 L 410) HEMATOCRIT (BEAKER) (test code = 31.7 % 34.1-44.9 L 411) MEAN CORPUSCULAR VOLUME (BEAKER) 81.3 fL 79.4-94.8 (test code = 753) MEAN CORPUSCULAR HEMOGLOBIN 25.6 pg 25.6-32.2 (BEAKER) (test code = 751) MEAN CORPUSCULAR HEMOGLOBIN CONC 31.5 GM/DL 32.2-35.5 L (BEAKER) (test code = 752) RED CELL DISTRIBUTION WIDTH 16.7 % 11.7-14.4 H (BEAKER) (test code = 412) PLATELET COUNT (BEAKER) (test 218 K/CU MM 150-450 code = 756) MEAN PLATELET VOLUME (BEAKER) 8.2 fL 9.4-12.3 L (test code = 754) NUCLEATED RED BLOOD CELLS 0 /100 WBC 0-0 (BEAKER) (test code = 413) CBC W/PLT COUNT & AUTO [id number] 14:13:32 Test Item Value Reference Range Interpretation Comments WHITE BLOOD CELL COUNT (BEAKER) 12.3 K/ L 3.5-10.5 H (test code = 775) RED BLOOD CELL COUNT (BEAKER) 3.90 M/ L 3.93-5.22 L (test code = 761) HEMOGLOBIN (BEAKER) (test code = 10.0 GM/DL 11.2-15.7 L 410) HEMATOCRIT (BEAKER) (test code = 31.7 % 34.1-44.9 L 411) MEAN CORPUSCULAR VOLUME (BEAKER) 81.3 fL 79.4-94.8 (test code = 753) MEAN CORPUSCULAR HEMOGLOBIN 25.6 pg 25.6-32.2 (BEAKER) (test code = 751) MEAN CORPUSCULAR HEMOGLOBIN CONC 31.5 GM/DL 32.2-35.5 L (BEAKER) (test code = 752) RED CELL DISTRIBUTION WIDTH 16.7 % 11.7-14.4 H (BEAKER) (test code = 412) PLATELET COUNT (BEAKER) (test 218 K/CU MM 150-450 code = 756) MEAN PLATELET VOLUME (BEAKER) 8.2 fL 9.4-12.3 L (test code = 754) NUCLEATED RED BLOOD CELLS 0 /100 WBC 0-0 (BEAKER) (test code = 413) CALCIUM, [id number] 12:24:18 Test Item Value Reference Range Interpretation Comments CALCIUM IONIZED (BEAKER) (test 1.22 mmol/L 1.12-1.27 code = 698) PH, BLOOD (BEAKER) (test code = 7.41 1810) GLUCOSE-STAT [id number] 12:24:17 Test Item Value Reference Range Interpretation Comments GLUCOSE RANDOM (BEAKER) (test code 154 mg/dL 70-110 H = 652) HGB/HCT (H&H) - STAT [id number] 12:24:17 Test Item Value Reference Range Interpretation Comments HEMOGLOBIN (BEAKER) (test code = 11.1 GM/DL 12.0-15.0 L 410) HEMATOCRIT (BEAKER) (test code = 33.0 % 36.0-45.0 L 411) BLOOD GAS, [id number] 12:24:11 Test Item Value Reference Range Interpretation Comments PH ARTERIAL (BEAKER) (test code = 7.42 7.35-7.45 383) PCO2 ARTERIAL (BEAKER) (test code 33 mm Hg 35-45 L = 384) PO2 ARTERIAL (BEAKER) (test code 429 mm Hg 80-90 H = 385) O2 SATURATION ARTERIAL (BEAKER) 99.8 % 96.0-97.0 H (test code = 386) HCO3 ARTERIAL (BEAKER) (test code 21 mmol/L 21-29 = 388) BASE EXCESS ARTERIAL (BEAKER) -3.1 mmol/L -2.0-3.0 L (test code = 387) PATIENT TEMPERATURE (BEAKER) 36.7 (test code = 1818) FIO2 (BEAKER) (test code = 1819) 100.0 POTASSIUM-STAT [id number] 12:24:01 Test Item Value Reference Range Interpretation Comments POTASSIUM (BEAKER) (test code = 4.0 meq/L 3.6-5.5 379) SODIUM NA-STAT [id number] 12:24:00 Test Item Value Reference Range Interpretation Comments SODIUM (BEAKER) (test code = 381) 135 meq/L 136-145 L GLUCOSE-STAT [id number] 11:43:11 Test Item Value Reference Range Interpretation Comments GLUCOSE RANDOM (BEAKER) (test code 169 mg/dL 70-110 H = 652) HGB/HCT (H&H) - STAT [id number] 11:43:11 Test Item Value Reference Range Interpretation Comments HEMOGLOBIN (BEAKER) (test code = 10.6 GM/DL 12.0-15.0 L 410) HEMATOCRIT (BEAKER) (test code = 31.0 % 36.0-45.0 L 411) CALCIUM, [id number] 11:43:10 Test Item Value Reference Range Interpretation Comments CALCIUM IONIZED (BEAKER) (test 1.10 mmol/L 1.12-1.27 L code = 698) PH, BLOOD (BEAKER) (test code = 7.42 1810) BLOOD GAS, [id number] 11:43:10 Test Item Value Reference Range Interpretation Comments PH ARTERIAL (BEAKER) (test code = 7.43 7.35-7.45 383) PCO2 ARTERIAL (BEAKER) (test code 32 mm Hg 35-45 L = 384) PO2 ARTERIAL (BEAKER) (test code 267 mm Hg 80-90 H = 385) O2 SATURATION ARTERIAL (BEAKER) 99.6 % 96.0-97.0 H (test code = 386) HCO3 ARTERIAL (BEAKER) (test code 21 mmol/L 21-29 = 388) BASE EXCESS ARTERIAL (BEAKER) -3.1 mmol/L -2.0-3.0 L (test code = 387) PATIENT TEMPERATURE (BEAKER) 36.7 (test code = 1818) FIO2 (BEAKER) (test code = 1819) 57.0 POTASSIUM-STAT [id number] 11:42:31 Test Item Value Reference Range Interpretation Comments POTASSIUM (BEAKER) (test code = 3.9 meq/L 3.6-5.5 379) SODIUM NA-STAT [id number] 11:42:30 Test Item Value Reference Range Interpretation Comments SODIUM (BEAKER) (test code = 381) 135 meq/L 136-145 L HGB/HCT (H&H) - STAT [id number] 11:06:50 Test Item Value Reference Range Interpretation Comments HEMOGLOBIN (BEAKER) (test code = 8.1 GM/DL 12.0-15.0 L 410) HEMATOCRIT (BEAKER) (test code = 24.0 % 36.0-45.0 L 411) CALCIUM, [id number] 11:06:49 Test Item Value Reference Range Interpretation Comments CALCIUM IONIZED (BEAKER) (test 0.88 mmol/L 1.12-1.27 L code = 698) PH, BLOOD (BEAKER) (test code = 7.42 1810) BLOOD GAS, [id number] 11:06:49 Test Item Value Reference Range Interpretation Comments PH ARTERIAL (BEAKER) (test code = 7.43 7.35-7.45 383) PCO2 ARTERIAL (BEAKER) (test code 30 mm Hg 35-45 L = 384) PO2 ARTERIAL (BEAKER) (test code 221 mm Hg 80-90 H = 385) O2 SATURATION ARTERIAL (BEAKER) 99.5 % 96.0-97.0 H (test code = 386) HCO3 ARTERIAL (BEAKER) (test code 20 mmol/L 21-29 L = 388) BASE EXCESS ARTERIAL (BEAKER) -4.0 mmol/L -2.0-3.0 L (test code = 387) PATIENT TEMPERATURE (BEAKER) 36.5 (test code = 1818) FIO2 (BEAKER) (test code = 1819) 50.0 GLUCOSE-STAT [id number] 11:06:49 Test Item Value Reference Range Interpretation Comments GLUCOSE RANDOM (BEAKER) (test code 161 mg/dL 70-110 H = 652) POTASSIUM-STAT [id number] 11:05:59 Test Item Value Reference Range Interpretation Comments POTASSIUM (BEAKER) (test code = 4.1 meq/L 3.6-5.5 379) SODIUM NA-STAT [id number] 11:05:58 Test Item Value Reference Range Interpretation Comments SODIUM (BEAKER) (test code = 381) 135 meq/L 136-145 L GLUCOSE-STAT [id number] 10:33:52 Test Item Value Reference Range Interpretation Comments GLUCOSE RANDOM (BEAKER) (test code 205 mg/dL 70-110 H = 652) HGB/HCT (H&H) - STAT [id number] 10:33:47 Test Item Value Reference Range Interpretation Comments HEMOGLOBIN (BEAKER) (test code = 10.7 GM/DL 12.0-15.0 L 410) HEMATOCRIT (BEAKER) (test code = 31.0 % 36.0-45.0 L 411) CALCIUM, [id number] 10:33:46 Test Item Value Reference Range Interpretation Comments CALCIUM IONIZED (BEAKER) (test 1.14 mmol/L 1.12-1.27 code = 698) PH, BLOOD (BEAKER) (test code = 7.38 1810) BLOOD GAS, [id number] 10:33:41 Test Item Value Reference Range Interpretation Comments PH ARTERIAL (BEAKER) (test code = 7.39 7.35-7.45 383) PCO2 ARTERIAL (BEAKER) (test code 35 mm Hg 35-45 = 384) PO2 ARTERIAL (BEAKER) (test code 231 mm Hg 80-90 H = 385) O2 SATURATION ARTERIAL (BEAKER) 99.5 % 96.0-97.0 H (test code = 386) HCO3 ARTERIAL (BEAKER) (test code 20 mmol/L 21-29 L = 388) BASE EXCESS ARTERIAL (BEAKER) -4.2 mmol/L -2.0-3.0 L (test code = 387) PATIENT TEMPERATURE (BEAKER) 36.3 (test code = 1818) FIO2 (BEAKER) (test code = 1819) 50.0 SODIUM NA-STAT [id number] 10:33:30 Test Item Value Reference Range Interpretation Comments SODIUM (BEAKER) (test code = 381) 136 meq/L 136-145 POTASSIUM-STAT [id number] 10:33:30 Test Item Value Reference Range Interpretation Comments POTASSIUM (BEAKER) (test code = 3.9 meq/L 3.6-5.5 379) HGB/HCT (H&H) - STAT [id number] 10:02:10 Test Item Value Reference Range Interpretation Comments HEMOGLOBIN (BEAKER) (test code = 9.3 GM/DL 12.0-15.0 L 410) HEMATOCRIT (BEAKER) (test code = 27.0 % 36.0-45.0 L 411) CALCIUM, [id number] 10:02:09 Test Item Value Reference Range Interpretation Comments CALCIUM IONIZED (BEAKER) (test 1.07 mmol/L 1.12-1.27 L code = 698) PH, BLOOD (BEAKER) (test code = 7.41 1810) BLOOD GAS, [id number] 10:02:09 Test Item Value Reference Range Interpretation Comments PH ARTERIAL (BEAKER) (test code = 7.41 7.35-7.45 383) PCO2 ARTERIAL (BEAKER) (test code 33 mm Hg 35-45 L = 384) PO2 ARTERIAL (BEAKER) (test code 235 mm Hg 80-90 H = 385) O2 SATURATION ARTERIAL (BEAKER) 99.5 % 96.0-97.0 H (test code = 386) HCO3 ARTERIAL (BEAKER) (test code 21 mmol/L 21-29 = 388) BASE EXCESS ARTERIAL (BEAKER) -3.5 mmol/L -2.0-3.0 L (test code = 387) PATIENT TEMPERATURE (BEAKER) 36.4 (test code = 1818) FIO2 (BEAKER) (test code = 1819) 50.0 GLUCOSE-STAT [id number] 10:02:09 Test Item Value Reference Range Interpretation Comments GLUCOSE RANDOM (BEAKER) (test code 162 mg/dL 70-110 H = 652) SODIUM NA-STAT [id number] 10:00:01 Test Item Value Reference Range Interpretation Comments SODIUM (BEAKER) (test code = 381) 136 meq/L 136-145 POTASSIUM-STAT [id number] 10:00:01 Test Item Value Reference Range Interpretation Comments POTASSIUM (BEAKER) (test code = 4.5 meq/L 3.6-5.5 379) Type and screen, [id number] 09:04:00 Test Item Value Reference Range Interpretation Comments ABO/RH AUTOMATED (BEAKER) (test O POSITIVE code = 2260) Ab Scrn (test code = 890-4) NEGATIVE [facility] - [facility] [id number] 08:37:45 Test Item Value Reference Range Interpretation Comments HEMOGLOBIN (BEAKER) (test code = 9.9 GM/DL 12.0-15.0 L 410) HEMATOCRIT (BEAKER) (test code = 29.0 % 36.0-45.0 L 411) POTASSIUM-STAT [id number] 08:37:44 Test Item Value Reference Range Interpretation Comments POTASSIUM (BEAKER) (test code = 3.3 meq/L 3.6-5.5 L 379) CALCIUM, [id number] 08:37:38 Test Item Value Reference Range Interpretation Comments CALCIUM IONIZED (BEAKER) (test 1.04 mmol/L 1.12-1.27 L code = 698) PH, BLOOD (BEAKER) (test code = 7.45 1810) BLOOD GAS, [id number] 08:37:26 Test Item Value Reference Range Interpretation Comments PH ARTERIAL (BEAKER) (test code = 7.46 7.35-7.45 H 383) PCO2 ARTERIAL (BEAKER) (test code 33 mm Hg 35-45 L = 384) PO2 ARTERIAL (BEAKER) (test code 214 mm Hg 80-90 H = 385) O2 SATURATION ARTERIAL (BEAKER) 99.5 % 96.0-97.0 H (test code = 386) HCO3 ARTERIAL (BEAKER) (test code 23 mmol/L 21-29 = 388) BASE EXCESS ARTERIAL (BEAKER) -0.3 mmol/L -2.0-3.0 (test code = 387) PATIENT TEMPERATURE (BEAKER) 36.3 (test code = 1818) FIO2 (BEAKER) (test code = 1819) 50.0 GLUCOSE-STAT [id number] 08:36:18 Test Item Value Reference Range Interpretation Comments GLUCOSE RANDOM (BEAKER) (test code = 94 mg/dL 70-110 652) SODIUM NA-STAT [id number] 08:36:18 Test Item Value Reference Range Interpretation Comments SODIUM (BEAKER) (test code = 381) 138 meq/L 136-145 POCT-GLUCOSE [id number] 06:32:07 Test Item Value Reference Range Interpretation Comments POC-GLUCOSE METER 98 mg/dL 70-110 : TESTED A T [facility] 6720 (KIT) (test code = MARIA [place], 1538) [address]: Car Oiler/Techni giana ID = [id number] for REGINA DURÁN SARS-COV2/RT-PCR ([facility])2022-01-03 20:29:14 Test Item Value Reference Range Interpretation Comments SARS-COV2/RT-PCR (test code = Negative Negative [id number]) Negative result for this test determines that SARS-CoV-2 RNA was not present in the specimen above the Limit of Detection (LOD). However, Negative results do not preclude SARS-CoV-2 infection and should not be used as the sole basis for treatment or patient management decisions. Negative results must be combined with clinical observations, patient history, and epidemiological information. A false negative result may occur if a specimen is improperly collected, transported, or handled. A false negative result should be considered if patient's recent exposures or clinical presentation indicate that COVID-19 (SARS-CoV-2) is likely and diagnostic tests for other causes of illness are negative. Re-testing should be considered in cases of suspected false negatives.The limit of detection for this assay is 100 copies/mL.This SARS-CoV-2 test is a real-time RT_PCR test intended for the qualitative detection of nucleic acid from SARS-CoV-2 in a nasopharyngeal swab specimen collected from individuals suspected of COVID-19 by their healthcare provider.This test has not been Food and Drug Administration (FDA) cleared or approved. This is a modified version of an approved Emergency Use Authorization (EUA) and is in the process of review by the FDA. Once authorized by the FDA, the issued EUA will be effective until the declaration that circumstances exist justifying the authorization of the emergency use of in vitro diagnostic tests for detection and/or diagnosis of COVID-19 is terminated under Section 564(b)(2) of the Act or the EUA is revoked under Section 564(g) of the Act.Testing was performed using t kala [employer] SARS-CoV-2 assay.Fact Sheet for Healthcare Providers:https://www.LeisureLink.brown/clive/RT SARS-CoV-2 HCP Fact Sheet 51- 995969.pdfFact Sheet for Healthcare Patients:https://www.LeisureLink.brown/clive/RT SARS-CoV-2 Patient Fact Sheet EN 51-464966A2.pdfCT, PELVIS, WITH IV CONTRAST 2022-01-03 15:22:00REFERRING : DI COTTON MD....2365 CT pelvis to evaluate the sacral bone for metastasis. Abnormality is seen on recent bone scan. Unlisted Reason for Exam - Click Yes and Enter Reason Below->No Will this procedure require oral contrast?->Yes [facility] : 1975 Sex: FFINAL REPORT EXAM: CT Pelvis WITH contrast INDICATION: Bone lesion COMPARISON: Nuclear medicine bone scan 12/26/2021, abdominal MRI 11/29/2021TECHNIQUE: Pelvis were scanned utilizing a multidetector helical scanner from the iliac crest to the pubic symphysis after administration of IV contrast. Coronal and sagittal reformations were obtained. Routine protocol was performed. Scan wasperformed when during portal venous phase. IV CONTRAST: 100 mL of Isovue-300 ORAL CONTRAST: None COMPLICATIONS: None RADIATION DOSE: Total DLP: 634.09 mGy*cm Estimated effective dose: (DLP x 0.015 x size factor) mSv CTDIvol has been reviewed. It is below the limits set by the Radiation Protocol Committee (RPC). FINDINGS: LINES and TUBES: None. GI TRACT: No abnormal distention, wall thickening, or evidence of bowel obstruction. Appendix is normal. PELVIC ORGANS/BLADDER: Urinary bladder is unremarkable. Status post hysterectomy. LYMPH NODES: No lymphadenopathy. VESSELS: Unremarkable. PERITONEUM / RETROPERITONEUM: No free air or fluid. BONES: No focal osseous lesion or abnormal enhancement to correlate with findings on prior bone scan. Additionally, no focal abnormalities in the sacrum on large bbgle-kx-pbfz coronal MR images from prior abdominal MRI.Minimal degenerative changes of the bilateral sacroiliac joints. No erosive changes or ankylosis to suggest sacroiliitis.Mild degenerative changes of the bilateral hips. SOFT TISSUES: Anterior infraumbilical fat and bowel-containing hernia with fascial defect measuring up to 4.1 cm in craniocaudal dimension. IMPRESSION: 1.No acute osseous abnormality or focal osseous lesions to suggest metastatic disease. If clinical concern persists, pelvis MRI with and without contrast would provide more sensitive evaluation however no abnormal bone signal changes on prior abdominal MRI given limited tyvid-bg-zaot. 2.Minimal degenerative changes of the bilateral sacroiliac joints. Signed: Ashley Richards MDReport Verified Date/Time: 01/03/2022 15:22:55 Reading Location: [facility] Reading Room [address] [place] [address] [id number] 11:26:29 Test Item Value Reference Range Interpretation Comments Prealbumin (test code = 24 mg/dL 14-45 03513-2) THAI (test code = THAI) Car Oiler ID - DB Lab Interpretation (test Normal code = 51426-8) [facility]BAS[facility] MET[facility]OLIC [id number] 11:26:29 Test Item Value Reference Range Interpretation Comments SODIUM (BEAKER) 140 meq/L 136-145 (test code = 381) POTASSIUM (BEAKER) 4.0 meq/L 3.5-5.1 (test code = 379) CHLORIDE (BEAKER) 104 meq/L 98-107 (test code = 382) CO2 (BEAKER) (test 24 meq/L 22-29 code = 355) BLOOD UREA NITROGEN 19 mg/dL 7-21 (BEAKER) (test code = 354) CREATININE (BEAKER) 0.92 mg/dL 0.57-1.25 (test code = 358) GLUCOSE RANDOM 88 mg/dL 70-105 (BEAKER) (test code = 652) CALCIUM (BEAKER) 9.7 mg/dL 8.4-10.2 (test code = 697) EGFR (BEAKER) (test 80 mL/min/1.73 ESTIMA KYLIE GFR IS code = 1092) sq m NOT ACCURATE CREATININE CLEARANCE IN PREDICTING GLOMERULAR FILTRATION RATE . ESTIMATED GFR I S NOT APPLICABLE FOR DIALYSIS PATIEN TS. Car Oiler ID - [id number] 11:26:29 Test Item Value Reference Range Interpretation Comments MAGNESIUM (BEAKER) (test code = 2.2 mg/dL 1.6-2.6 627) Car Oiler ID - [id number] 11:26:29 Test Item Value Reference Range Interpretation Comments PHOSPHORUS (BEAKER) (test code = 4.0 mg/dL 2.3-4.7 604) Car Oiler ID - AAHAMIDHEPATIC FUNCTION [id number] 11:26:29 Test Item Value Reference Range Interpretation Comments TOTAL PROTEIN (BEAKER) (test code = 7.7 gm/dL 6.0-8.3 770) ALBUMIN (BEAKER) (test code = 1145) 4.2 g/dL 3.5-5.0 BILIRUBIN TOTAL (BEAKER) (test code 0.3 mg/dL 0.2-1.2 = 377) BILIRUBIN DIRECT (BEAKER) (test 0.1 mg/dL 0.1-0.5 code = 706) ALKALINE PHOSPHATASE (BEAKER) (test 50 U/L 40-150 code = 346) AST (SGOT) (BEAKER) (test code = 15 U/L 5-34 353) ALT (SGPT) (BEAKER) (test code = 13 U/L 6-55 347) Car Oiler ID - [id number] 11:26:29 Test Item Value Reference Range Interpretation Comments PREALBUMIN (BEAKER) (test code = 24 mg/dL 14-45 586) Car Oiler ID - DBURINALYSIS W/ REFLEX URINE [id number] 11:22:16 Test Item Value Reference Range Interpretation Comments COLOR (BEAKER) (test code = 470) Light Yellow CLARITY (BEAKER) (test code = Clear 469) SPECIFIC GRAVITY UA (BEAKER) 1.014 1.001-1.035 (test code = 468) PH UA (BEAKER) (test code = 467) 5.0 5.0-8.0 PROTEIN UA (BEAKER) (test code = Negative Negative 464) GLUCOSE UA (BEAKER) (test code = 1000 mg/dL Negative A 365) KETONES UA (BEAKER) (test code = Negative Negative 371) BILIRUBIN UA (BEAKER) (test code Negative Negative = 462) BLOOD UA (BEAKER) (test code = Negative Negative 461) NITRITE UA (BEAKER) (test code = Negative Negative 465) LEUKOCYTE ESTERASE UA (BEAKER) Negative Negative (test code = 466) UROBILINOGEN UA (BEAKER) (test 0.2 mg/dL 0.2-1.0 code = 463) RBC UA (BEAKER) (test code = < /HPF 519) WBC UA (BEAKER) (test code = 1 /HPF 520) BACTERIA (BEAKER) (test code = None Seen 517) SQUAMOUS EPITHELIAL (BEAKER) 3 /HPF (test code = 516) HYALINE CASTS (BEAKER) (test 3 /LPF code = 514) CRYSTALS, URINE (BEAKER) (test None Seen code = 1521) AMORPHOUS CRYSTALS (BEAKER) Rare (test code = 1584) YEAST (BEAKER) (test code = Rare 1585) SOURCE(BEAKER) (test code = 4555) Car Oiler ID - [auto]Car Oiler ID - techPROTHROMBIN TIME/[id number] 11:20:46 Test Item Value Reference Range Interpretation Comments PROTIME (BEAKER) 12.6 seconds 11.9-14.2 (test code = 759) INR (BEAKER) (test 0.96 See_Comment [Automat ed message] code = 370) The system [employer] generated this result transmitted ref erence range: <=5.90. The reference range was not used to int erpret this result as normal/abnormal . RECOMMENDED COUMADIN/WARFARIN INR THERAPY RANGESSTANDARD DOSE: 2.0 - 3.0 Includes: PROPHYLAXIS for venous thrombosis, systemic embolization; TREATMENT for venous thrombosis and/or pulmonary embolus.HIGH RISK: Target INR is 2.5-3.5 for patients with mechanical heart valves.CBC W/PLT COUNT & AUTO [id number] 11:11:35 Test Item Value Reference Range Interpretation Comments WHITE BLOOD CELL COUNT (BEAKER) 9.0 K/ L 3.5-10.5 (test code = 775) RED BLOOD CELL COUNT (BEAKER) 4.54 M/ L 3.93-5.22 (test code = 761) HEMOGLOBIN (BEAKER) (test code = 10.4 GM/DL 11.2-15.7 L 410) HEMATOCRIT (BEAKER) (test code = 34.9 % 34.1-44.9 411) MEAN CORPUSCULAR VOLUME (BEAKER) 76.9 fL 79.4-94.8 L (test code = 753) MEAN CORPUSCULAR HEMOGLOBIN 22.9 pg 25.6-32.2 L (BEAKER) (test code = 751) MEAN CORPUSCULAR HEMOGLOBIN CONC 29.8 GM/DL 32.2-35.5 L (BEAKER) (test code = 752) RED CELL DISTRIBUTION WIDTH 16.7 % 11.7-14.4 H (BEAKER) (test code = 412) PLATELET COUNT (BEAKER) (test 520 K/CU MM 150-450 H code = 756) MEAN PLATELET VOLUME (BEAKER) 8.0 fL 9.4-12.3 L (test code = 754) NUCLEATED RED BLOOD CELLS 0 /100 WBC 0-0 (BEAKER) (test code = 413) NEUTROPHILS RELATIVE PERCENT 62 % (BEAKER) (test code = 429) LYMPHOCYTES RELATIVE PERCENT 25 % (BEAKER) (test code = 430) MONOCYTES RELATIVE PERCENT 9 % (BEAKER) (test code = 431) EOSINOPHILS RELATIVE PERCENT 3 % (BEAKER) (test code = 432) BASOPHILS RELATIVE PERCENT 0 % (BEAKER) (test code = 437) NEUTROPHILS ABSOLUTE COUNT 5.56 K/ L 1.56-6.13 (BEAKER) (test code = 670) LYMPHOCYTES ABSOLUTE COUNT 2.27 K/ L 1.18-3.74 (BEAKER) (test code = 414) MONOCYTES ABSOLUTE COUNT (BEAKER) 0.79 K/ L 0.24-0.36 H (test code = 415) EOSINOPHILS ABSOLUTE COUNT 0.29 K/ L 0.04-0.36 (BEAKER) (test code = 416) BASOPHILS ABSOLUTE COUNT (BEAKER) 0.03 K/ L 0.01-0.08 (test code = 417) IMMATURE GRANULOCYTES-RELATIVE 0 % 0-1 PERCENT (BEAKER) (test code = 2801) BONE AND/OR JOINT IMAGING, WHOLE [id number] 16:11:00REFERRING : DI COTTON MD....[id number] Reason for Exam - Click Yes and Enter Reason Below->Y esUnlisted Reason for Exam->liver [facility] : 1975 Sex: FFINAL REPORT PROCEDURE: BONE SCAN, WHOLE BODY CPT CODE: 63773 INDICATION: Hepaticmass PROTOCOL: 20.2 mCi of Tc-99m MDP was injected intravenously. Whole body and selected spot images were obtained approximately 3 hours later. FINDINGS: Tracer activity moderately, focally increased in the lateral aspect of the left clavicle. There is mild focal increase in the sternoclavicular joints and in the maxilla as well as the upper sacrum and in the inferior aspect of the right sacroiliac joint. There is mild diffuse increase in activity in the shoulders, hips, knees, and feet.There is focal, mild increase in activity in the lower thoracic spine at approximately T10. Distribution in the spine is otherwise generally irregular. IMPRESSION: 1. Focal increase in activity in the sacroiliac and sacral regions may represent early insufficiency fracture, but neoplasm at this level cannot be excluded. Similarly, lower thoracic increase may be degenerative in origin but neoplasm must be considered. Focal increase in the left clavicle is consistent with the history of previous trauma, but again, neoplasm cannot be excluded. Radiographic correlation would be useful for each of these sites.2. Degenerative changes in the spine and peripheral joints.3. Periodontal abnormality. Images for compariso n/correlation were recent chest CT and abdominal MRI. Signed: Branden Zamora MDReport Verified Date/Time: 12/26/2021 16:11:11 Reading Location: [address] Reading Room CT, CHEST, WITHOUT [id number] 08:56:00REFERRING : DI COTTON MD....[id number] Reason for Exam - Click Yes and Enter Reason Below->YesUnlisted Reason for Exam->[facility] : 1975 Sex: FFINAL REPORT CT of the chest, without contrast, 12/26/2021. History: Shortness of breath, liver cancer. Comparison: MRI abdomen 11/29/2021. Technique: Multidetector CT scanning of the chest was performed from the level of the thoracic inlet to the upper abdomen without IV or oral contrast. This exam was performed according to our departmental dose-optimization program which includes automated exposure control, adjustment of the mA and/or kV according to patient size and/or use of iterative reconstruction technique. Discussion: Evaluation of the heart and mediastinal structures is limited secondary to lack of intravenous contrast. The heart, aorta, and pulmonary vessels are normalin size. There are scattered nonspecific subcentimeter bilateral axillary and mediastinal nodes. Thecentral airways are patent. Linear opacities are present in the left lower lobe. There is no evidence of consolidation or pleural effusion. The soft tissues and osseous structures are unremarkable. Limited evaluation of the upper abdomen demonstrates opacification and hyperdense lesion in the dome of the liver, better evaluated on prior MRI. IMPRESSION:No acute or suspicious pulmonary findings. Signed: Carmel Velasquez MDReport Verified Date/Time: 12/26/2021 08:56:46 Reading Location: [facility] Reading Room TISSUE [id number] 21:46:03Surgical Pathology Report Case: [id number] Authorizing Provider: Prema Guerra NP Collected: 12/14/2021 11:40 AM Ordering Location: [facility] PERIOPERATIVE Received: 12/14/2021 02:24 PM SERVICES Pathologist: Zahra Thapa MD Specimen: Biopsy, Liver LIVER, SEGMENT 4 AND 8, LESION MASS, BIOPSY: -WELL-DIFFERENTIATED HEPATOCELLULAR LESION FAVOR HEPATOCELLULAR CARCINOMA, SEE COMMENTSJ/pl Signing Pathologist Direct Phone Line: [phone] signed by Zahra Thapa MD on 12/18/2021 at 9:46 PMIn this 46-year-old female with large mass measuring 6.8 cm in segment 8, with no h/o cirrhosis and Alpha fetoprotein 2.5. These findings are highly suggestive of well differentiated hepatocellularcarcinoma, however, the biopsy is scant, and hepatic adenoma is still in the differential. Correlation with imaging is recommended. Intradepartmental consult: Dr. Waters and Dr. Ann, have reviewed the salient slides and agree with the diagnosis 13087 x1; 87535 x1. 19069 B6Oxxly lesionLiver biopsyA. Received in formalin and labeled with the patient's name, medical record number, and designated "biopsy, liver" are 2 tran-yellow soft tissue cores measuring 0.8 x 0.1 and 0.7 x 0.1 cm. The specimen issubmitted in toto in cassette A1.TONO Morales studentThe Glypican stain is negative and reticulin stain is show loss of reticulin fiber. The interpretation of this case included the use of immunohistochemistry or special stains.Control Slides Examined: In-house known positive controls were evaluated along with the test tissue. These control slides run alongside of the patients sample show appr opriate staining. Internal positive and negative controls when available are evaluated Immunohistochemistry technical testing was performed at [facility], Pathology Laboratory where it was developed and its performance characteristics were determined. It has not been cleared or approved by the U.S. Food and Drug Administration. The FDA has determined that such clearance or approval is not necessary. The test is used for clinical purposes. It should not be regarded as investigational or for research. This laboratory is certified under the Clinical Laboratory Improvement Amendments of 1988 (CLIA-88) as qualified to perform high complexity clinical laboratory testing.[facility], Department of Pathology, [address] [place] [address], [facility], [facility] of [facility], [address] [place] [address], [facility], Department of Pathology, [address] [place] [address], LJ, BIOPSY, [id number] 18:02:00REFERRING : DI COTTON MD....[id number]:->[facility] : 1975 Sex: FFINAL REPORT History: Liver mass. PROCEDURE: Following informed written consent, the patient was placed in a supine position on the CT table and limited noncontrast CT was performed of the liver. A skin site was identified, prepped and draped in the usual sterile manner. Using a right anterolateral approach and CT fluoroscopic guidance, a 19-gauge guiding needle was advanced percutaneously into the patient's hepatic dome mass described above. Using coaxial technique, a total of two 20-gauge core tissue samples were obtained from the mass and submitted in formalin to pathology forevaluation. At the conclusion of the procedure, the needles were withdrawn and the tract embolized with a Gelfoam slurry. Repeat noncontrast CT was performed through the liver. Overall, the patient tolerated the procedure well without immediate complications and was discharged from the department in stable condition. FINDINGS: Limited noncontrast CT of the liver performed prior to, during and following the biopsy demonstrates a 2.6 cm mass in the hepatic dome with an adjacent area of increased attenuation. During the biopsy, the needle tip is noted in expected position within the hyper attenuated lesion. After the biopsy, there are is no evidence for hemorrhage or other immediate postbiopsy complication. IMPRESSION: 1. Successful uncomplicated CT-guided core biopsy of the patient's hepatic dome mass as described in detail above. This exam was performed according to our departmental dose optimization program which includes automated exposure control, adjustment of the mA and/or KV according to the patient's size and/or use of iterative reconstruction technique. Signed: Denzel Duránort Ricardo ified Date/Time: 12/17/2021 18:02:54 Reading Location: [place] [address] Angio Body Reading Room CBC W/PLT COUNT & AUTO [id number] 08:56:18 Test Item Value Reference Range Interpretation Comments WHITE BLOOD CELL COUNT (BEAKER) 10.3 K/ L 3.5-10.5 (test code = 775) RED BLOOD CELL COUNT (BEAKER) 4.63 M/ L 3.93-5.22 (test code = 761) HEMOGLOBIN (BEAKER) (test code = 10.8 GM/DL 11.2-15.7 L 410) HEMATOCRIT (BEAKER) (test code = 35.7 % 34.1-44.9 411) MEAN CORPUSCULAR VOLUME (BEAKER) 77.1 fL 79.4-94.8 L (test code = 753) MEAN CORPUSCULAR HEMOGLOBIN 23.3 pg 25.6-32.2 L (BEAKER) (test code = 751) MEAN CORPUSCULAR HEMOGLOBIN CONC 30.3 GM/DL 32.2-35.5 L (BEAKER) (test code = 752) RED CELL DISTRIBUTION WIDTH 17.2 % 11.7-14.4 H (BEAKER) (test code = 412) PLATELET COUNT (BEAKER) (test 403 K/CU MM 150-450 code = 756) MEAN PLATELET VOLUME (BEAKER) 8.4 fL 9.4-12.3 L (test code = 754) NUCLEATED RED BLOOD CELLS 0 /100 WBC 0-0 (BEAKER) (test code = 413) (CELLAVISION MANUAL DIFF)2021-12-14 08:49:07 Test Item Value Reference Range Interpretation Comments NEUTROPHILS - REL 67 % (CELLAVISION)(BEAKER) (test code = 2816) LYMPHOCYTES - REL 23 % (CELLAVISION)(BEAKER) (test code = 2817) MONOCYTES - REL 7 % (CELLAVISION)(BEAKER) (test code = 2818) EOSINOPHILS - REL 2 % (CELLAVISION)(BEAKER) (test code = 2819) BANDS - REL (CELLAVISION)(BEAKER) 1 % 0-10 (test code = 2826) NEUTROPHILS - ABS 6.90 K/ul 1.56-6.13 H (CELLAVISION)(BEAKER) (test code = 2830) LYMPHOCYTES - ABS 2.37 K/ul 1.18-3.74 (CELLAVISION)(BEAKER) (test code = 2831) MONOCYTES - ABS 0.72 K/uL 0.24-0.36 H (CELLAVISION)(BEAKER) (test code = 2832) EOSINOPHILS - ABS 0.21 K/uL 0.04-0.36 (CELLAVISION)(BEAKER) (test code = 2834) BANDS - ABS (CELLAVISION)(BEAKER) 0.10 K/uL 0.00-0.80 (test code = 2840) TOTAL COUNTED (BEAKER) (test code 100 = 1351) WBC MORPHOLOGY (BEAKER) (test Normal code = 487) GIANT PLATELETS (BEAKER) (test Present code = 313) ANISOCYTOSIS (BEAKER) (test code 2+ moderate = 961) MICROCYTES (BEAKER) (test code = 2+ moderate 965) ARTIFACT (CELLAVISION)(BEAKER) Present (test code = 3432) PLATELET CONCENTRATION Adequate (CELLAVISION)(BEAKER) (test code = 3438) Car Oiler ID - brent Mccoy comments: Slide comments:PROTHROMBIN TIME/INR 2021-12-14 08:24:56 Test Item Value Reference Range Interpretation Comments PROTIME (BEAKER) 13.4 seconds 11.9-14.2 (test code = 759) INR (BEAKER) (test 1.04 See_Comment [Automat ed message] code = 370) The system [employer] generated this result transmitted ref erence range: <=5.90. The reference range was not used to int erpret this result as normal/abnormal . RECOMMENDED COUMADIN/WARFARIN INR THERAPY RANGESSTANDARD DOSE: 2.0 - 3.0 Includes: PROPHYLAXIS for venous thrombosis, systemic embolization; TREATMENT for venous thrombosis and/or pulmonary embolus.HIGH RISK: Target INR is 2.5-3.5 for patients with mechanical heart valves.POCT-GLUCOSE [id number] 08:05:35 Test Item Value Reference Range Interpretation Comments POC-GLUCOSE METER 166 mg/dL 70-110 H : TESTED Thiago T [facility] 6720 (KIT) (test code [facility], = 1538) [address]: Car Oiler/Techni giana ID = [id number] for David kang Sherita MR, ABDOMEN, WITHOUT / WITH IV [id number] 13:54:00REFERRING : BACDI VALENTINO MD....[id number] Reason for Exam - Click Yes and Enter Reason Below->YesUnlisted Reason for Exam->Liver [facility] : 1975 Sex: FFINAL REPORT TECHNIQUE: MRI of the abdomen WITHOUT and WITH intravenous contrast.INDICATION: Unlisted Reason for ExamLiver mass. COMPARISON: MRI from 08/28/2021. FINDINGS: LOWER THORAX: Unremarkable. LIVER: The liver is enlarged with diffuse loss of signal on out of phase imaging. There is a mass which occupies portions of segments for an VIII. Overall the mass measures 4.7 x 4.2 x 6.8 cm, previously 4.7 x 4.3 x 7.2 cm. This mass causes mass effect on the adjacent right hepatic vein, middle hepatic vein, and IVC. Portions of this mass are nonenhancing, but other portions arterially hyperenhance and form a pseudocapsule with examples as follow:*A portion of the tumor in segment VIII which arterially enhances and forms a pseudocapsule measures 3.3 x 3.1 cm on axial delayed phaseimage 33. This previously measured 3.1 x 4 cm.*An area at the inferior portion of the mass which arterially hyperenhancing is, washes out, and form pseudocapsule in segment VIII measures 3.4 cm on axial delayed phase image 46, previously not hyperenhancing and measuring 2.1 cm. This portion of the mass is a signal on out of phase imaging. There is an area of hypoenhancement adjacent the falciform ligament which loses signal on out of phase imaging and is most consistent with focal fatty infiltration. BILIARY: Prior cholecystectomy. No biliary ductal dilatation or filling defect.SPLEEN: No splenomegaly. The spleen measures 12.6 cm in length. PANCREAS: No focal masses or ductal dilatation. ADRENALS:No adrenal nodules.KIDNEYS/URETERS: No hydronephrosis or solid mass lesions. PERITONEUM/RETROPERITONEUM: No free fluid. Small, fat filled umbilical hernia.LYMPH NODES: No lymphadenopathy. The prominentbut nonenlarged mesenteric lymph nodes are likely reactive. VESSELS: The main portal vein is patent and measures 1.1 cm. GI TRACT: No distention or wall thickening. BONES AND SOFT TISSUES: Unremarkable. IMPRESSION: 1.There is a mass which occupies portions of segments IV and VIII which is similar in size at 4.7 x 4.2 x 6.8 cm compared to the prior. This mass causes mass effect on the adjacent right hepatic vein, middle hepatic vein, and inferior vena cava. Areas which are more solid have changed as stated below. 2.A mass along the inferior portion of the liver lesion has increased in size and enhancement and measures 3.4 cm, previously 2.1 cm. This could be an adenoma. However, given the increase in size, the hepatocellular carcinoma is possible. 3.A mass along the more superior portion in segment VIII measures 3.3 x 3.1 cm, previous 3.1 x 4 cm. The decrease in size is from an indeterminate cause. 4.Hepatomegaly with diffuse fatty infiltration of the liver Signed: Hemal Floresort Verified Date/Time: 12/04/2021 13:54:02 Reading Location: [facility] Diagnostic Imaging Reading Room - [place] [address] Cancer Antigen 125 (CA 125)2021-11-19 16:13:21 Test Item Value Reference Range Interpretation Comments CA 125 (test 5 U/mL <35 This test was code = performed using the 9168547) Kisha Tesha Chemiluminescen t method.Values o btained from different assay methods cannot be used interchangeably .CA 125 levels, regardl ess of value, should n ot be interpreted as absoluteevidenc e of the presence or abs ence of disease. THAI (test Performing Lab EZ code = THAI) [facility] [address] [employer] [facility] [place] [address] Vijay Puckett MD, PhD, DONNA [facility] campusCarbohydrate antigen 19-9 (CA 19-9)2021-11-19 14:38:32 Test Item Value Reference Range Interpretation Comments CA 19-9 8 U/mL <34 This test was (test code = performed using the 96607-3) Siemens Chemiluminescen t method.Values o btained from different assay methods cannot be used interchangeably .CA19-9 levels, regardl ess of value, should n ot be interpreted as absoluteevidenc e of the presence or abs ence of disease. THAI (test Performing Lab EZ code = THAI) [facility] [address] [address] [place] [address] Vijay Puckett MD, PhD, DONNA [facility] campusCB W/PLT COUNT & AUTO [id number] 13:31:42 Test Item Value Reference Range Interpretation Comments WHITE BLOOD CELL COUNT (BEAKER) 10.4 K/ L 3.5-10.5 (test code = 775) RED BLOOD CELL COUNT (BEAKER) 5.03 M/ L 3.93-5.22 (test code = 761) HEMOGLOBIN (BEAKER) (test code = 11.6 GM/DL 11.2-15.7 410) HEMATOCRIT (BEAKER) (test code = 38.7 % 34.1-44.9 411) MEAN CORPUSCULAR VOLUME (BEAKER) 76.9 fL 79.4-94.8 L (test code = 753) MEAN CORPUSCULAR HEMOGLOBIN 23.1 pg 25.6-32.2 L (BEAKER) (test code = 751) MEAN CORPUSCULAR HEMOGLOBIN CONC 30.0 GM/DL 32.2-35.5 L (BEAKER) (test code = 752) RED CELL DISTRIBUTION WIDTH 17.4 % 11.7-14.4 H (BEAKER) (test code = 412) PLATELET COUNT (BEAKER) (test 529 K/CU MM 150-450 H code = 756) MEAN PLATELET VOLUME (BEAKER) 8.4 fL 9.4-12.3 L (test code = 754) NUCLEATED RED BLOOD CELLS 0 /100 WBC 0-0 (BEAKER) (test code = 413) (CELLAVISION MANUAL DIFF)2021-11-15 13:31:42 Test Item Value Reference Range Interpretation Comments NEUTROPHILS - REL 71 % (CELLAVISION)(BEAKER) (test code = 2816) LYMPHOCYTES - REL 17 % (CELLAVISION)(BEAKER) (test code = 2817) MONOCYTES - REL 6 % (CELLAVISION)(BEAKER) (test code = 2818) EOSINOPHILS - REL 5 % (CELLAVISION)(BEAKER) (test code = 2819) ATYPICAL LYMPHOCYTES - REL 1 % 0-0 H (CELLAVISION)(BEAKER) (test code = 2829) NEUTROPHILS - ABS 7.38 K/ul 1.56-6.13 H (CELLAVISION)(BEAKER) (test code = 2830) LYMPHOCYTES - ABS 1.77 K/ul 1.18-3.74 (CELLAVISION)(BEAKER) (test code = 2831) MONOCYTES - ABS 0.62 K/uL 0.24-0.36 H (CELLAVISION)(BEAKER) (test code = 2832) EOSINOPHILS - ABS 0.52 K/uL 0.04-0.36 H (CELLAVISION)(BEAKER) (test code = 2834) ATYPICAL LYMPHOCYTES - ABS 0.10 K/uL 0.00-0.00 H (CELLAVISION)(BEAKER) (test code = 2858) TOTAL COUNTED (BEAKER) (test code = 100 1351) WBC MORPHOLOGY (BEAKER) (test code Normal = 487) PLT MORPHOLOGY (BEAKER) (test code Normal = 486) POLYCHROMATOPHILLIC RBCS(BEAKER) 1+ few (test code = 478) ANISOCYTOSIS (BEAKER) (test code = 1+ few 961) MICROCYTES (BEAKER) (test code = 1+ few 965) ARTIFACT (CELLAVISION)(BEAKER) Present (test code = 3432) PLATELET CONCENTRATION Increased (CELLAVISION)(BEAKER) (test code = 3438) Car Oiler ID - Lorena Romero comments: Slide comments:URINALYSIS W/ REFLEX URINE [id number] 13:19:39 Test Item Value Reference Range Interpretation Comments COLOR (BEAKER) (test code = 470) Light Yellow CLARITY (BEAKER) (test code = Clear 469) SPECIFIC GRAVITY UA (BEAKER) 1.018 1.001-1.035 (test code = 468) PH UA (BEAKER) (test code = 467) 5.0 5.0-8.0 PROTEIN UA (BEAKER) (test code = Negative Negative 464) GLUCOSE UA (BEAKER) (test code = >1000 mg/dL Negative A 365) KETONES UA (BEAKER) (test code = Negative Negative 371) BILIRUBIN UA (BEAKER) (test code Negative Negative = 462) BLOOD UA (BEAKER) (test code = Negative Negative 461) NITRITE UA (BEAKER) (test code = Negative Negative 465) LEUKOCYTE ESTERASE UA (BEAKER) Negative Negative (test code = 466) UROBILINOGEN UA (BEAKER) (test 0.2 mg/dL 0.2-1.0 code = 463) RBC UA (BEAKER) (test code = 1 /HPF 519) WBC UA (BEAKER) (test code = 0 /HPF 520) BACTERIA (BEAKER) (test code = None Seen 517) MUCUS (BEAKER) (test code = Rare 1574) SQUAMOUS EPITHELIAL (BEAKER) < /HPF (test code = 516) CRYSTALS, URINE (BEAKER) (test None Seen code = 1521) YEAST (BEAKER) (test code = Occasional 1585) SOURCE(BEAKER) (test code = 2582) Car Oiler ID - [auto]Car Oiler ID - techCarcinoembryonic Antigen (CEA)2021-11-15 13:18:29 Test Item Value Reference Range Interpretation Comments CEA, SERUM (test code = 1.5 ng/mL 0.0-5.0 2039-03) THAI (test code = THAI) Car Oiler ID - ROSA L Lab Interpretation (test Normal code = 96112-4) [facility] campusCARCINOEMBRYONIC ANTIGEN (CEA)2021-11-15 13:18:29 Test Item Value Reference Range Interpretation Comments CARCINOEMBRYONIC ANTIGEN (BEAKER) 1.5 ng/mL 0.0-5.0 (test code = 685) Car Oiler ID - ROSA LALPHA FETOPROTEIN (AFP), TUMOR [id number] 13:18:29 Test Item Value Reference Range Interpretation Comments ALPHA-FETOPROTEIN (BEAKER) (test 2.5 ng/mL <10.0 code = 1094) Car Oiler ID - ROSA LBASIC METABOLIC [id number] 13:04:48 Test Item Value Reference Range Interpretation Comments SODIUM (BEAKER) 135 meq/L 136-145 L (test code = 381) POTASSIUM (BEAKER) 3.7 meq/L 3.5-5.1 (test code = 379) CHLORIDE (BEAKER) 100 meq/L 98-107 (test code = 382) CO2 (BEAKER) (test 24 meq/L 22-29 code = 355) BLOOD UREA NITROGEN 12 mg/dL 7-21 (BEAKER) (test code = 354) CREATININE (BEAKER) 0.84 mg/dL 0.57-1.25 (test code = 358) GLUCOSE RANDOM 199 mg/dL 70-105 H (BEAKER) (test code = 652) CALCIUM (BEAKER) 9.7 mg/dL 8.4-10.2 (test code = 697) EGFR (BEAKER) (test 89 mL/min/1.73 ESTIMA KYLIE GFR IS code = 1092) sq m NOT ACCURATE CREATININE CLEARANCE IN PREDICTING GLOMERULAR FILTRATION RATE . ESTIMATED GFR I S NOT APPLICABLE FOR DIALYSIS PATIEN TS. Car Oiler ID - ROSA [id number] 13:04:48 Test Item Value Reference Range Interpretation Comments MAGNESIUM (BEAKER) (test code = 2.1 mg/dL 1.6-2.6 627) Car Oiler ID - ROSA [id number] 13:04:48 Test Item Value Reference Range Interpretation Comments PHOSPHORUS (BEAKER) (test code = 4.2 mg/dL 2.3-4.7 604) Car Oiler ID - ROSA LHEPATIC FUNCTION [id number] 13:04:48 Test Item Value Reference Range Interpretation Comments TOTAL PROTEIN (BEAKER) (test code = 8.3 gm/dL 6.0-8.3 770) ALBUMIN (BEAKER) (test code = 1145) 4.5 g/dL 3.5-5.0 BILIRUBIN TOTAL (BEAKER) (test code 0.5 mg/dL 0.2-1.2 = 377) BILIRUBIN DIRECT (BEAKER) (test 0.2 mg/dL 0.1-0.5 code = 706) ALKALINE PHOSPHATASE (BEAKER) (test 82 U/L 40-150 code = 346) AST (SGOT) (BEAKER) (test code = 15 U/L 5-34 353) ALT (SGPT) (BEAKER) (test code = 14 U/L 6-55 347) Car Oiler ID - ROSA [id number] 13:04:48 Test Item Value Reference Range Interpretation Comments PREALBUMIN (BEAKER) (test code = 26 mg/dL 14-45 586) Car Oiler ID - ROSA LPROTHROMBIN TIME/[id number] 12:55:00 Test Item Value Reference Range Interpretation Comments PROTIME (BEAKER) 13.2 seconds 11.9-14.2 (test code = 759) INR (BEAKER) (test 1.02 See_Comment [Automat ed message] code = 370) The system [employer] generated this result transmitted ref erence range: <=5.90. The reference range was not used to int erpret this result as normal/abnormal . RECOMMENDED COUMADIN/WARFARIN INR THERAPY RANGESSTANDARD DOSE: 2.0 - 3.0 Includes: PROPHYLAXIS for venous thrombosis, systemic embolization; TREATMENT for venous thrombosis and/or pulmonary embolus.HIGH RISK: Target INR is 2.5-3.5 for patients with mechanical heart valves.[id number] 15:11:00 Test Item Value Reference Range Interpretation Comments FERRITIN (test code = 58 ng/mL 15-082 6437098) THAI (test code = THAI) Performed at: [facility] [address] [id number] Director: Jun Sarabia MD, Phone: [phone] [facility]+%[id number] 15:11:00 Test Item Value Reference Range Interpretation Comments TIBC (test code = 361 ug/dL 250-233 9408218) UIBC (test code = 324 ug/dL 131-115 6832950) IRON (test code = 37 ug/dL 27-395 8302117) IRON SATURATION % (test 10 % 15-55 L code = 291) THAI (test code = THAI) Performed at: [facility] [id number] Director: Jun Sarabia MD, Phone: [phone] Lab Interpretation (test Abnormal code = 62974-2) [facility] Center[facility]AUTO DIFF WITH [id number] 13:09:00 Test Item Value Reference Range Interpretation Comments WHITE BLOOD CELL See_Comment [Automated COUNT (test code = message] The 6690-2) system which generated this result transmitted reference range : 3.4 - 10.8 x10E3/uL. The reference range was not used to interpret this result as normal/abnormal . RED BLOOD CELL COUNT See_Comment [Autom ated (test code = 12793-0) messag e] The system which generated this result transmitted reference range : 3.77 - 5.28 x10E6/uL. The reference range was not used to interpret this result as normal/abnormal . HEMOGLOBIN (test code 12.0 g/dL 11.1-15.9 = 23947-5) HEMATOCRIT (test code 38.3 % 34.0-46.6 = 45898-5) MEAN CORPUSCULAR 73 fL 79-97 L VOLUME (test code = 787-2) MEAN CORPUSCULAR 23.0 pg 26.6-33.0 L HEMOGLOBIN (test code = 785-6) MEAN CORPUSCULAR 31.3 g/dL 31.5-35.7 L HEMOGLOBIN CONC (test code = 786-4) RED CELL DISTRIBUTION 18.0 % 11.7-15.4 H WIDTH (test code = 788-0) PLATELET COUNT (test See_Comment H [Autom ated code = 777-3) message] The system which generated this result transmitted reference range : 150 - 450 x10E3/uL. The reference range was not used to interpret this result as normal/abnormal . NEUTROPHILS % (test 49 % Not Estab. code = 770-8) LYMPHOCYTES % (test 39 % Not Estab. code = 736-9) MONOCYTES % (test 7 % Not Estab. code = 5905-5) EOSINOPHILS % (test 3 % Not Estab. code = 713-8) BASOPHILS % (test 1 % Not Estab. code = 706-2) NEUTROPHILS ABSOLUTE See_Comment [Autom ated COUNT (test code = message] The 751-8) system which generated this result transmitted reference range : 1.4 - 7.0 x10E3/uL. The reference range was not used to interpret this result as normal/abnormal . LYMPHOCYTES ABSOLUTE See_Comment H [Autom ated COUNT (test code = message] The 731-0) system which generated this result transmitted reference range : 0.7 - 3.1 x10E3/uL. The reference range was not used to interpret this result as normal/abnormal . MONOCYTES ABSOLUTE See_Comment [Automat ed COUNT (test code = message] The 742-7) system which generated this result transmitted reference range : 0.1 - 0.9 x10E3/uL. The reference range was not used to interpret this result as normal/abnormal . EOSINOPHILS ABSOLUTE See_Comment [Autom ated COUNT (test code = message] The 971-2) system which generated this result transmitted reference range : 0.0 - 0.4 x10E3/uL. The reference range was not used to interpret this result as normal/abnormal . BASOPHILS ABSOLUTE See_Comment [Automat ed COUNT (test code = message] The 704-7) system which generated this result transmitted reference range : 0.0 - 0.2 x10E3/uL. The reference range was not used to interpret this result as normal/abnormal . IMMATURE GRANULOCYTES 1 % Not Estab. (test code = 71392-9) IMMATURE GRANS (ABS) See_Comment [Autom ated (test code = 9987) message] The system which generated this result transmitted reference range : 0.0 - 0.1 x10E3/uL. The reference range was not used to interpret this result as normal/abnormal . THAI (test code = THAI) Performed at: 01 - [facility] [address] [place], [place] [id number] Director: Jun Sarabia MD, Phone: [phone] Lab Interpretation Abnormal (test code = 89692-5) [id number] 14:52:03Surgical Pathology Report Case: [id number] Authorizing Provider: Prema Guerra NP Collected: 09/20/2021 01:45 PM Ordering Location: [facility] Received: 09/20/2021 04:07 PM SERVICES Pathologist: Zahra Thapa MD Specimen: Biopsy, Liver LIVER, LESION, TARGETED NEEDLE CORE BIOPSY: - NO FEATURES OF HEPATOCELLULAR LESION OR MALIGNANCY IDENTIFIED - MILD STEATOSIS - MILD LOBULAR INFLAMMATION - SEE COMMENT Signing Pathologist Direct Phone Line: [phone] signed by Zahra Thapa MD on 09/25/2021 at 2:52 PM Comment: This may represent a misrepresentative sampling. If clinically suspicious, repeat biopsy is suggested. 8307, [id number], [id number]. LiverA. Received in formalin, labeled with the patient's name, accession number, and "liver lesion", are multiple tran-brown core biopsies that range from 0.2 to 1.3 cm in greatest dimension. The specimen is entirely submitted in cassette A1.Multiple thin liver cores with adequate number of portal triads. All the cores show diffuse presence of bile duct and portal triads with central vein (CK7) . There is mild macrosteatosis noted in the lobules in a nonzonal presentation comprised of approximately 30% of hepatocytes. CD34 expression is highlighted only in the periportal areas. Glypican 3 is negative. B catenin negative for nuclear staining. Glutamine synthetase shows normal type of staining in centri venular hepatocytes. C reactive protein show nonspecific staining. Amyloid A is negative and liver fatty acid binding protein shows diffuse normal pattern of staining. Negative for lesional tissue. The interpretation of this case included the use of immunohistochemistry or special stains.Control Slides Examined: In-house known positive controls were evaluated along with the test tissue. These control slides run alongside of the patients sample show appropriate staining. Internal positive and negative controls when available areevaluated Immunohistochemistry technical testing was performed at [facility], Pathology Laboratory where it was developed and its performance characteristics were determined. It has not been cleared or approved by the U.S. Food and Drug Administration. The FDA has determined thatsuch clearance or approval is not necessary. The test is used for clinical purposes. It should not be regarded as investigational or for research. This laboratory is certified under the Clinical Laboratory Improvement Amendments of 1988 (CLIA-88) as qualified to perform high complexity clinical laboratory testing.[facility], Department of Pathology, [address] [place] [address], [facility], [facility] of [facility]ology, [address] [place] [address], BjtwbjSanta Marta Hospital, Department of Pathology, [address] [place] [address], N/S, BIOPSY, [id number] 14:38:00REFERRING : DI COTTON MD....[id number] biopsy liver lesion seen on recent MRI.Reason for Exam:-&g t;Liver lesionSONORA REGIONAL [facility]ENTERName: DAREN RÍOS : 1975 Sex: FFINAL REPORT Ultrasound guided liver mass core biopsy, 09/20/2021. Clinical History: Liver mass. Modality: Ultrasound. Comparison: MRI 08/28/2021. Sedation: 1.5 mg Versed and 75 mcg Fentanyl IV was used for moderate sedation monitored under my direction. The patient's vital signs were monitored throughout the procedure and recorded to the patient's medical record by the nurse. Totalintra-service time of sedation was 30 minutes. Quality Improvement Analyst: Rocio. Product Support Technician: None. Estimated Blood Loss: 2cc. Specimen: 3 18-gauge core biopsy specimens, placed in formalin and sent to pathology.Technique: Informed consent was obtained. The risks of pain, bleeding, infection, injury to liver/adjacent structures, transfusion risks, moderate sedation risks, and adverse medication reactions were discussed with the patient. After informed consent was obtained, the patient's liver was scanned withthe patient in the supine position. An ill-defined 4.6 cm hypoechoic mass is identified in the central superior aspect of the liver corresponding to the MRI finding. After the skin was prepped and draped in the usual sterile manner, the area was anesthetized with 2% lidocaine. After a small skin incision was made, an 18 gauge Biopince core biopsy needle was advanced into the lesion under direct sonographic observation. 3 passes were made with 3 core biopsy specimens obtained. Post procedure sonographic evaluation of the area reveals no hematoma. The patient tolerated the procedure well, without immediate complications. Patient Disposition: The patient was sent in good condition to the observation a jaxon for vital sign monitoring and bed rest. Impression: Successful and uncomplicated ultrasound guided liver mass core biopsy performed with conscious sedation. Signed: Carmel Velasquez VerifiedDate/Time: 09/20/2021 14:38:18 Reading Location: [address] Body Reading Room (CELLAVISION MANUAL DIFF)2021-09-20 13:31:51 Test Item Value Reference Range Interpretation Comments NEUTROPHILS - REL 66 % (CELLAVISION)(BEAKER) (test code = 2816) LYMPHOCYTES - REL 29 % (CELLAVISION)(BEAKER) (test code = 2817) MONOCYTES - REL 3 % (CELLAVISION)(BEAKER) (test code = 2818) EOSINOPHILS - REL 1 % (CELLAVISION)(BEAKER) (test code = 2819) MYELOCYTES - REL 1 % 0-0 H (CELLAVISION)(BEAKER) (test code = 2822) NEUTROPHILS - ABS 6.01 K/ul 1.56-6.13 (CELLAVISION)(BEAKER) (test code = 2830) LYMPHOCYTES - ABS 2.64 K/ul 1.18-3.74 (CELLAVISION)(BEAKER) (test code = 2831) MONOCYTES - ABS 0.27 K/uL 0.24-0.36 (CELLAVISION)(BEAKER) (test code = 2832) EOSINOPHILS - ABS 0.09 K/uL 0.04-0.36 (CELLAVISION)(BEAKER) (test code = 2834) MYELOCYTES-ABS 0.09 K/uL 0.00-0.00 H (CELLAVISION)(BEAKER) (test code = 2837) TOTAL COUNTED (BEAKER) (test code = 100 1351) WBC MORPHOLOGY (BEAKER) (test code Normal = 487) LARGE PLT(BEAKER) (test code = Present 2156) POLYCHROMATOPHILLIC RBCS(BEAKER) 1+ few (test code = 478) HYPOCHROMIA (BEAKER) (test code = 1+ few 963) ANISOCYTOSIS (BEAKER) (test code = 1+ few 961) MICROCYTES (BEAKER) (test code = 1+ few 965) POIKILOCYTES (BEAKER) (test code = 1+ few 966) SPHEROCYTES (BEAKER) (test code = 1+ few 768) OVALOCYTES (BEAKER) (test code = 1+ few 477) ARTIFACT (CELLAVISION)(BEAKER) Present (test code = 3432) PLATELET CONCENTRATION Increased (CELLAVISION)(BEAKER) (test code = 3438) Car Oiler ID - Jinny Scott comments: Slide comments:CBC W/PLT COUNT & AUTO [id number] 13:31:50 Test Item Value Reference Range Interpretation Comments WHITE BLOOD CELL COUNT (BEAKER) 9.1 K/ L 3.5-10.5 (test code = 775) RED BLOOD CELL COUNT (BEAKER) 4.66 M/ L 3.93-5.22 (test code = 761) HEMOGLOBIN (BEAKER) (test code = 10.5 GM/DL 11.2-15.7 L 410) HEMATOCRIT (BEAKER) (test code = 34.9 % 34.1-44.9 411) MEAN CORPUSCULAR VOLUME (BEAKER) 74.9 fL 79.4-94.8 L (test code = 753) MEAN CORPUSCULAR HEMOGLOBIN 22.5 pg 25.6-32.2 L (BEAKER) (test code = 751) MEAN CORPUSCULAR HEMOGLOBIN CONC 30.1 GM/DL 32.2-35.5 L (BEAKER) (test code = 752) RED CELL DISTRIBUTION WIDTH 17.0 % 11.7-14.4 H (BEAKER) (test code = 412) PLATELET COUNT (BEAKER) (test 502 K/CU MM 150-450 H code = 756) MEAN PLATELET VOLUME (BEAKER) 8.1 fL 9.4-12.3 L (test code = 754) NUCLEATED RED BLOOD CELLS 0 /100 WBC 0-0 (BEAKER) (test code = 413) BASIC METABOLIC [id number] 09:54:06 Test Item Value Reference Range Interpretation Comments SODIUM (BEAKER) 138 meq/L 136-145 (test code = 381) POTASSIUM (BEAKER) 3.8 meq/L 3.5-5.1 (test code = 379) CHLORIDE (BEAKER) 102 meq/L 98-107 (test code = 382) CO2 (BEAKER) (test 27 meq/L 22-29 code = 355) BLOOD UREA NITROGEN 14 mg/dL 7-21 (BEAKER) (test code = 354) CREATININE (BEAKER) 0.77 mg/dL 0.57-1.25 (test code = 358) GLUCOSE RANDOM 158 mg/dL 70-105 H (BEAKER) (test code = 652) CALCIUM (BEAKER) 9.5 mg/dL 8.4-10.2 (test code = 697) EGFR (BEAKER) (test 99 mL/min/1.73 ESTIMA KYLIE GFR IS code = 1092) sq m NOT ACCURATE CREATININE CLEARANCE IN PREDICTING GLOMERULAR FILTRATION RATE . ESTIMATED GFR I S NOT APPLICABLE FOR DIALYSIS PATIEN TS. Car Oiler ID - VERA EPATIC FUNCTION [id number] 09:54:06 Test Item Value Reference Range Interpretation Comments TOTAL PROTEIN (BEAKER) (test code = 7.5 gm/dL 6.0-8.3 770) ALBUMIN (BEAKER) (test code = 1145) 4.0 g/dL 3.5-5.0 BILIRUBIN TOTAL (BEAKER) (test code 0.3 mg/dL 0.2-1.2 = 377) BILIRUBIN DIRECT (BEAKER) (test 0.2 mg/dL 0.1-0.5 code = 706) ALKALINE PHOSPHATASE (BEAKER) (test 64 U/L 40-150 code = 346) AST (SGOT) (BEAKER) (test code = 14 U/L 5-34 353) ALT (SGPT) (BEAKER) (test code = 12 U/L 6-55 347) Car Oiler ID - VERA MPROTHROMBIN [id number] 09:40:02 Test Item Value Reference Range Interpretation Comments PROTIME (BEAKER) 13.3 seconds 11.9-14.2 (test code = 759) INR (BEAKER) (test 1.03 See_Comment [Automat ed message] code = 370) The system [employer] generated this result transmitted ref erence range: <=5.90. The reference range was not used to int erpret this result as normal/abnormal . RECOMMENDED COUMADIN/WARFARIN INR THERAPY RANGESSTANDARD DOSE: 2.0 - 3.0 Includes: PROPHYLAXIS for venous thrombosis, systemic embolization; TREATMENT for venous thrombosis and/or pulmonary embolus.HIGH RISK: Target INR is 2.5-3.5 for patients with mechanical heart valves.POCT-GLUCOSE [id number] 09:25:25 Test Item Value Reference Range Interpretation Comments POC-GLUCOSE METER 151 mg/dL 70-110 H : Notified RN/: (KIT) (test code = TESTED AT [facility] [address]) [place], [address]: Car Oiler/Techni giana ID = [id number] for WENDY MYLES MR, ABDOMEN, [id number] 12:15:00REFERRING : DI COTOTN MD....[id number] Abdominal VesselsUnlisted Reason for Exam - Click Yes and Enter Reason Below->NoSANDEE A[facility]Name: [facility]OS : 1975 Sex: FFINAL REPORT TECHNIQUE: MRI of the abdomen and MRCP WITHOUT and WITH intravenous contrast. 3-D volume reconstructions were obtained to evaluate the biliary ductal system. INDICATION:Liver lesion, > 1cm, US nondiagnostic. COMPARISON: Outside facility CT from 01/30/2021. Ultrasoundfrom 01/08/2021. FINDINGS: LOWER THORAX: Unremarkable. LIVER: The liver is enlarged with diffuse lossof signal on out of phase imaging, consistent with fatty infiltration. A mass which occupies portions of segment VIII and IV is multilobulated and has areas which loses signal on out of phase imaging. One portion of this mass arterially hyperenhancing is, washes out, and forms a pseudocapsule. In total, this mass measures 3.9 x 4.4 x 7 cm. This previously measured approximately 3.6 x 4.6 x 7.2 cm, essentially unchanged. However, the portion which enhances, washes out, and forms a pseudocapsule has increased in size and measures 4.1 cm, previously 3.2 cm. Arterial hyperenhancing observation in segment VII measures 0.4 cm on axial arterial phase image 73 were not definitely visualized on the prior. Focal fatty infiltration adjacent to the falciform ligament. BILIARY: Prior cholecystectomy. No biliary ductal dilatation or filling defect.SPLEEN: No splenomegaly.PANCREAS: No focal masses or ductal dilatation. ADRENALS: No adrenal nodules.KIDNEYS/URETERS: No hydronephrosis or solid mass lesions. PERIT ONEUM/RETROPERITONEUM: No free fluid.LYMPH NODES: No lymphadenopathy. There are prominent but nonenlarged lymph nodes in the hayes hepatis which may be reactive.VESSELS: Conventional hepatic arterial anatomy. The main portal vein is patent and measures 1.1 cm in diameter. GI TRACT: No distention or wall thickening. BONES AND SOFT TISSUES: Unremarkable. IMPRESSION: 1.A 3.9 x 4.4 x 7 cm mass which occupies portions of segments IV and VIII contains lipid and an area with arterial hyperenhancement, washout, and pseudocapsule formation. 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 However, the portion which enhances, washes out, and forms a pseudocapsule has increased in size to 4.1 cm from 3.2 cm. Hepatocellular carcinoma is in the differential, and further evaluation with biopsy should be considered. 2.A LI-RADS 3 observation in segment VII measures 0.4 cm. 3.Hepatomegaly with diffuse fatty infiltration of the liver. Signed: Hemal Flores MDReport Verified Date/Time: 09/02/2021 12:15:04 Reading Location: [facility] C013Y CT Body Reading Room Electronically signed by: HEMAL FLORES MD on 112:15 PMPROTHROMBIN TIME/[id number] 17:25:35 Test Item Value Reference Range Interpretation Comments PROTIME (BEAKER) 12.3 seconds 11.9-14.2 (test code = 759) INR (BEAKER) (test 0.93 See_Comment [Automat ed message] code = 370) The system [employer] generated this result transmitted ref erence range: <=5.90. The reference range was not used to int erpret this result as normal/abnormal . RECOMMENDED COUMADIN/WARFARIN INR THERAPY RANGESSTANDARD DOSE: 2.0 - 3.0 Includes: PROPHYLAXIS for venous thrombosis, systemic embolization; TREATMENT for venous thrombosis and/or pulmonary embolus.HIGH RISK: Target INR is 2.5-3.5 for patients with mechanical heart valves.CARCINOEMBRYONIC ANTIGEN (CEA) 2021-08-28 17:10:51 Test Item Value Reference Range Interpretation Comments CARCINOEMBRYONIC ANTIGEN (BEAKER) 1.5 ng/mL 0.0-5.0 (test code = 685) Car Oiler ID - BSALPHA FETOPROTEIN (AFP), TUMOR [id number] 17:10:51 Test Item Value Reference Range Interpretation Comments ALPHA-FETOPROTEIN (BEAKER) (test 2.5 ng/mL <10.0 code = 1094) Car Oiler ID - BS(CELLAVISION MANUAL DIFF)2021-08-28 17:05:54 Test Item Value Reference Range Interpretation Comments NEUTROPHILS - REL 57 % (CELLAVISION)(BEAKER) (test code = 2816) LYMPHOCYTES - REL 35 % (CELLAVISION)(BEAKER) (test code = 2817) MONOCYTES - REL 6 % (CELLAVISION)(BEAKER) (test code = 2818) ATYPICAL LYMPHOCYTES - REL 2 % 0-0 H (CELLAVISION)(BEAKER) (test code = 2829) NEUTROPHILS - ABS 5.53 K/ul 1.56-6.13 (CELLAVISION)(BEAKER) (test code = 2830) LYMPHOCYTES - ABS 3.40 K/ul 1.18-3.74 (CELLAVISION)(BEAKER) (test code = 2831) MONOCYTES - ABS 0.58 K/uL 0.24-0.36 H (CELLAVISION)(BEAKER) (test code = 2832) ATYPICAL LYMPHOCYTES - ABS 0.19 K/uL 0.00-0.00 H (CELLAVISION)(BEAKER) (test code = 2858) TOTAL COUNTED (BEAKER) (test code = 100 1351) WBC MORPHOLOGY (BEAKER) (test code Normal = 487) PLT MORPHOLOGY (BEAKER) (test code Normal = 486) POLYCHROMATOPHILLIC RBCS(BEAKER) 1+ few (test code = 478) ANISOCYTOSIS (BEAKER) (test code = 1+ few 961) MICROCYTES (BEAKER) (test code = 1+ few 965) MACROCYTES (BEAKER) (test code = 1+ few 964) ARTIFACT (CELLAVISION)(BEAKER) Present (test code = 3432) PLATELET CONCENTRATION Increased (CELLAVISION)(BEAKER) (test code = 3438) Car Oiler ID - Poppy Cueto comments: Slide comments:[id number] 16:51:53 Test Item Value Reference Range Interpretation Comments MAGNESIUM (BEAKER) (test code = 2.1 mg/dL 1.6-2.6 627) Car Oiler ID - [id number] 16:51:53 Test Item Value Reference Range Interpretation Comments PHOSPHORUS (BEAKER) (test code = 4.8 mg/dL 2.3-4.7 H 604) Car Oiler ID - BSHEPATIC FUNCTION [id number] 16:51:53 Test Item Value Reference Range Interpretation Comments TOTAL PROTEIN (BEAKER) (test code = 8.1 gm/dL 6.0-8.3 770) ALBUMIN (BEAKER) (test code = 1145) 4.3 g/dL 3.5-5.0 BILIRUBIN TOTAL (BEAKER) (test code 0.2 mg/dL 0.2-1.2 = 377) BILIRUBIN DIRECT (BEAKER) (test 0.1 mg/dL 0.1-0.5 code = 706) ALKALINE PHOSPHATASE (BEAKER) (test 76 U/L 40-150 code = 346) AST (SGOT) (BEAKER) (test code = 13 U/L 5-34 353) ALT (SGPT) (BEAKER) (test code = 12 U/L 6-55 347) Car Oiler ID - BSGAMMA GLUTAMYL TRANSFERASE (GGT)2021-08-28 16:51:53 Test Item Value Reference Range Interpretation Comments GAMMA GLUTAMYL TRANSFERASE (BEAKER) 85 U/L 9-64 H (test code = 364) Car Oiler ID - BSBASIC METABOLIC [id number] 16:51:52 Test Item Value Reference Range Interpretation Comments SODIUM (BEAKER) 137 meq/L 136-145 (test code = 381) POTASSIUM (BEAKER) 3.8 meq/L 3.5-5.1 (test code = 379) CHLORIDE (BEAKER) 99 meq/L 98-107 (test code = 382) CO2 (BEAKER) (test 27 meq/L 22-29 code = 355) BLOOD UREA NITROGEN 14 mg/dL 7-21 (BEAKER) (test code = 354) CREATININE (BEAKER) 0.89 mg/dL 0.57-1.25 (test code = 358) GLUCOSE RANDOM 196 mg/dL 70-105 H (BEAKER) (test code = 652) CALCIUM (BEAKER) 10.3 mg/dL 8.4-10.2 H (test code = 697) EGFR (BEAKER) (test 84 mL/min/1.73 ESTIMA KYLIE GFR IS code = 1092) sq m NOT ACCURATE CREATININE CLEARANCE IN PREDICTING GLOMERULAR FILTRATION RATE . ESTIMATED GFR I S NOT APPLICABLE FOR DIALYSIS PATIEN TS. Car Oiler ID - BSCBC W/PLT COUNT & AUTO [id number] 16:38:34 Test Item Value Reference Range Interpretation Comments WHITE BLOOD CELL COUNT (BEAKER) 9.7 K/ L 3.5-10.5 (test code = 775) RED BLOOD CELL COUNT (BEAKER) 5.10 M/ L 3.93-5.22 (test code = 761) HEMOGLOBIN (BEAKER) (test code = 11.5 GM/DL 11.2-15.7 410) HEMATOCRIT (BEAKER) (test code = 38.5 % 34.1-44.9 411) MEAN CORPUSCULAR VOLUME (BEAKER) 75.5 fL 79.4-94.8 L (test code = 753) MEAN CORPUSCULAR HEMOGLOBIN 22.5 pg 25.6-32.2 L (BEAKER) (test code = 751) MEAN CORPUSCULAR HEMOGLOBIN CONC 29.9 GM/DL 32.2-35.5 L (BEAKER) (test code = 752) RED CELL DISTRIBUTION WIDTH 17.6 % 11.7-14.4 H (BEAKER) (test code = 412) PLATELET COUNT (BEAKER) (test 473 K/CU MM 150-450 H code = 756) MEAN PLATELET VOLUME (BEAKER) 8.1 fL 9.4-12.3 L (test code = 754) NUCLEATED RED BLOOD CELLS 0 /100 WBC 0-0 (BEAKER) (test code = 413) TISSUE [id number] 17:37:00Surgical Pathology Report Case: [id number] Authorizing Provider: Lucy Resendiz MD Collected: 05/17/2021 09:09 AM Ordering Location: [facility] Received: 05/17/2021 09:57 AM SERVICES Pathologist: Victoria Pavon MD Specimen: Uterus w/Cervix & Bilateral Fallopian Tubes UTERUS, CERVIX,BILATERAL FALLOPIAN TUBES, HYSTERECTOMY AND BILATERAL SALPINGECTOMY:- WEIGHT: 224 GRAMS- CERVIX: MILD CHRONIC INFLAMMATION, NEGATIVE FOR DYSPLASIA- ENDOMETRIUM: BENIGN ENDOMETRIAL POLYP, NEGATIVE FOR AT YPIA AND MALIGNANCY- MYOMETRIUM: SUBSEROSAL LEIOMYOMA (6 CM), CALCIFIED- SEROSA: NO HISTOPATHOLOGIC ABNORMALITY- FALLOPIAN TUBES: RIGHT PARATUBAL CYST, LEFT TUBE UNREMARKABLE Signing Pathologist Direct Phone Line: [phone] signed by Victoria Pavon MD on 05/22/2021 at 5:37 [id number], [id number] mass Uterus with cervix and bilateral fallopian tubesThe specimen is received in a container with formalin labeled with two patient's identifiers and "uterus with cervix and bilateral fallopian tubes". It consists of a 224 gm uterus with attached cervix and attached bilateral fallopian tubes. The uterus measures 11.5 cm fundus to cervix, 11 cm cornu to cornu, and 5 cm anterior to posterior. The right tube is fimbriated and measures 7 cm in length and 0.9 cm in diameter. There is a small paratubal cyst with no other lesions. The left fallopian tube measures 7.2 cm in length and 0.8 cm in diameter and contains no abnormalities.The uterine serosa is tran-villalobos and contains a large, tran-white, protuberance from the serosal surface on the anterior fundic portion of the specimen. This mass measures 6 x 6 x 3.8 cm. The anterior portion of the specimen is inked blue, and the posterior portion is inked black. The cervix is round, covered in a tran-pink smooth and unremarkable mucosa and measures 4 x 4 cm in surface area. There is a 0.5 cm unremarkable patent os present. Bivalving the specimen reveals a 3.5 cm in length and 0.8 cm in diameter tran-white endocervical canal, which is covered inunremarkable mucosa. The endometrial cavity is slightly compressed by the previously described subserosal nodule and measures 4.5 x 0.8 cm. There is a small area of mucosal fullness/polyp in the lower uterine segment on the anterior half measuring 1 x 0.5 x 0.5 cm. Serial section of the endometrial mucosa is tran-white, homogeneous and unremarkable measuring approximately 0.1 cm throughout. Serial sectioning of the myometrium reveals it measures 2 cm in greatest thickness and is unremarkable. Serial s ectioning of the aforementioned subserosal nodule shows a tran-white and homogeneous cut surface withpunctate calcifications but no areas of hemorrhage or necrosis. Multifocal Button Grinder sections are submitted according to section code.Section code:A1, anterior cervixA2, posterior cervixA3, anterior lower rebecca rine segment with area of heaped up mucosa A4, posterior lower uterine segment A5, anterior endomyometrium and serosaA6, posterior endomyometrium and serosaA7- A11, front office representative sections of large subserosal nodule with areas of calcifications, submitted after [id number], right fallopian tube f imbriae entirely submitted, cross sections of tube, representatively submitted A13 left fallopian tube fimbriae entirely submitted, cross sections of tube representatively submitted Z/ewPerformed.[facility], Department of Pathology, [address] [place] [address], [facility], [facility] of Pathology, [address] [place] [address], Hu. [facility], Department of Pathology, [address] [place] [address], [id number] 10:40:00Medical Cytology Report Case: [id number] Authorizing Provider: Lucy Resendiz MD Collected: 05/17/2021 08:55 AM Ordering Location: [facility] Received: 05/17/2021 09:31 AM SERVICES Pathologist: Janene Greenwood MD Specimen: Pelvic PELVIC WASHING (CYTOSPINS): - NEGATIVE FOR MALIGNANCY Signing Pathologist Direct Phone Line: [phone] signed by Janene Greenwood MD on 05/21/2021 at 10:40 AMPlease see surgical pathology case [id number] post laparoscopy, history of adnexal mass.PELVIC WASHINGReceived 40 mls bloody fluid; prepared 4 cytospins. Performed. SatisfactorySt. [facility], Department of [facility]ology, [address] [place], [place] [address], [facility]qs[facility], Department of Pathology, [address] [place] [address], Mf. [facility], Department of Pathology, [address] [place] [address], EZEV-GLUCOSE [id number] 10:11:00 Test Item Value Reference Range Interpretation Comments POC-GLUCOSE METER 174 mg/dL 70-110 H : TESTED A T [facility] [address] (BEAKER) (test code [address], = 1538) [place] [address]: Car Oiler/Techni giana ID = [id number] for Tami Macario POCT-GLUCOSE [id number] 07:26:00 Test Item Value Reference Range Interpretation Comments POC-GLUCOSE METER 92 mg/dL 70-110 : TESTED A T [address] (BEAKER) (test code = [address]) [place] [address]: Car Oiler/Techni giana ID = [id number] for Efrain Benjamin SCREEN, [id number] 07:02:00 Test Item Value Reference Range Interpretation Comments TEST URINE (BEAKER) (test Negative code = 583) SARS-COV2/RT-PCR ([facility]2021-05-14 14:20:00 Test Item Value Reference Range Interpretation Comments SARS-COV2/RT-PCR Negative Negative The SARS-Co V-2 target (test code = 8405878) nuclei c acids are not detected in thi s specimen. The presence of SARS-CoV-2/FLU/RSV viral nucleic acids cannot rule out co- infections or disease caused by other viral or bacterial pathogens. As with any molecular test, mutations within the target regions of the Xpert Xpress SARS-CoV-2/Flu/RSV test could affect primer and/or probe binding resulting in failure to detect the presence of virus or the virus being detected less predictably. False negative results may occur if the virus is present at levels below the analytical limit of detection in thisspecimen.This Xpert Xpress SARS-CoV-2/Flu/RSV test is a rapid, real-time RT-PCR test intended for the qualitative detection of nucleic acid from Xpert Xpress SARS-CoV-2/Flu/RSV in a nasopharyngeal swabspecimen collected from individuals suspected of Xpert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
[2022-10-30 15:39] LABS: Urine Blood Negative (Negative); Urine Glucose 2+ (Negative); Urine Protein Trace (Negative); Urine Specific Gravity 1.015 (1.005-1.030); Urine pH 5.5 (5.0-7.0)
[2022-10-30] MEDS ORDERED: FLUCONAZOLE 100 MG TAB ONE (16:28)
[2022-10-30 17:17] LABS: Urine Bacteria <20 /HPF (<20); Urine Crystals Unidentified Few /HPF (None Seen); Urine Granular Casts 0-5 /LPF (None Seen); Urine Mucus Slight /HPF (None Seen); Urine RBC <5 /HPF (None Seen)
--- NOTE | 2022-10-30 17:23 | EDPHYS ---
Physician Documentation [facility] Name: Frida Arriola Age: 47 yrs Sex: Female : 1975 Arrival Date: 10/30/2022 Time: 14:53 Bed 19 Private MD: ED Physician Johnny Juarez HPI: 10/30 18:17 This 47 yrs old Black Female presents to ER via Ambulatory with complaints of Leg kb Swelling. 18:17 the patient presents with a swollen area of the lateral aspect of left calf. kb Description: swollen. Onset: The symptoms/episode began/occurred 2 day(s) ago. Possible cause(s): scratch. Associated signs and symptoms: Pertinent positives: swelling, Pertinent negatives: discharge, drainage, erythema, foreign body sensation, fever, headache, nausea, shortness of breath, vomiting. Modifying factors: the symptoms are alleviated by nothing, the symptoms are aggravated by nothing. Severity of symptoms: At their worst the symptoms were mild, in the emergency department the symptoms are unchanged. The patient has not experienced similar symptoms in the past. The patient has not recently seen a physician. Pt reports she has been itching a lot lately, possible due to some pain medication that she took a few days ago, and scratched her leg causing an opening in the skin. States she noticed some swelling to area today. Also reports she was recently treated for a UTI with cefdinir so she wants to make sure the UTI is gone and c/o yeast infection caused by the antibiotics. . [employer]: 15:01 LMP N/A - Hysterectomy ap3 Historical: - Allergies: 14:59 No Known Allergies; ap3 - PMHx: 14:59 Diabetes - IDDM; Hypertension; ap3 - Immunization history:: Client reports receiving the 2nd dose of the Covid vaccine, Flu vaccine is not up to date. - Social history:: Smoking status: Patient denies any tobacco usage or history of. ROS: 18:17 Constitutional: Negative for fever, chills, and weight loss. kb 18:17 : Positive for vaginal itching. 18:17 Skin: Positive for abrasion(s), swelling, of the lateral aspect of left calf. 18:17 All other systems are negative. Exam: 18:17 Constitutional: This is a well developed, well nourished patient who is awake, alert, kb and in no acute distress. Head/Face: Normocephalic, atraumatic. ENT: Moist Mucous membranes Cardiovascular: Regular rate and rhythm with a normal S1 and S2. No gallops, murmurs, or rubs. No pulse deficits. Respiratory: Respirations even and unlabored. No increased work of breathing. Talking in full sentences MS/ Extremity: Pulses equal, no cyanosis. Neurovascular intact. Full, normal range of motion. Neuro: Awake and alert, GCS 15, oriented to person, place, time, and situation. Moves all extremities. Normal gait. Psych: Awake, alert, with orientation to person, place and time. Behavior, mood, and affect are within normal limits. 18:17 Skin: cellulitis, that is minimal, on the lateral aspect of left calf. Vital Signs: 14:57 BP 147 / 91; Pulse 87; Resp 18; Temp 98.3; Pulse Ox 98% ; Weight 88.45 kg; Height 5 ft. ap3 5 in. (165.10 cm); 16:40 BP 144 / 87; Pulse 84; Resp 18; Pulse Ox 99% ; jh5 14:57 Body Mass Index 32.45 (88.45 kg, 165.10 cm) ap3 MDM: 14:55 Patient medically screened. kb 18:16 Differential diagnosis: abscess, cellulitis, insect bite. Data reviewed: vital signs, kb nurses notes. Test considered but Not performed: Ultrasound US ext considered. Counseling: I had a detailed discussion with the patient and/or guardian regarding: the historical points, exam findings, and any diagnostic results supporting the discharge/admit diagnosis, lab results, the need for outpatient follow up, a family practitioner, to return to the emergency department if symptoms worsen or persist or if there are any questions or concerns that arise at home. 10/30 15:06 Order name: Urine Microscopic Only; Complete Time: 17:21 kb 10/30 15:26 Order name: Glucose, Ancillary Testing; Complete Time: 15:38 EDMS 10/30 15:06 Order name: Urine Dipstick-Ancillary (obtain specimen); Complete Time: 15:40 kb 10/30 15:06 Order name: Blood Glucose Level; Complete Time: 15:13 kb 10/30 15:39 Order name: Urine Dipstick-Ancillary; Complete Time: 15:48 EDMS Administered Medications: 16:28 Drug: DiFLUcan (fluconazole) 150 mg Route: PO; jh5 Disposition: 10/31 12:38 Co-signature as Attending Physician, Johnny Juarez MD I agree with the assessment and kdr plan of care. Disposition Summary: 10/30/22 17:22 Discharge Ordered Location: Home kb Condition: Stable kb Diagnosis - Local infection of the skin and subcutaneous tissue, unspecified kb Followup: kb - With: Emergency Department - When: As needed - Reason: Worsening of condition Followup: kb - With: Private Physician - When: 2 - 3 days - Reason: Recheck today's complaints, Continuance of care, Re-evaluation by your physician Discharge Instructions: - Discharge Summary Sheet kb - Cellulitis, Adult, [id number] kb Forms: - Medication Reconciliation Form kb - Thank You Letter kb - Antibiotic Education kb - Prescription Opioid Use kb Prescriptions: - mupirocin 2 % Topical ointment - apply 1 application by TOPICAL route 3 times per day; 1 tube; Refills: 0, kb Product Selection Permitted - Elimite 5 % Topical Cream - apply 1 application by TOPICAL route one time Wash after 12 hours.; 60 gram; kb Refills: 0, Product Selection Permitted - Bactrim DS 800-160 mg Oral Tablet - take 1 tablet by ORAL route every 12 hours for 10 days; 20 tablet; Refills: 0, kb Product Selection Permitted - Fluconazole 150 mg Oral Tablet - take 1 tablet by ORAL route one time may repeat in 3 days if symptoms persist; kb 2 tablet; Refills: 0, Product Selection Permitted Signatures: Dispatcher [employer] EDNC Melinda Mcfadden, CHIEF OPERATOR HYDROFORMER-C CHIEF OPERATOR HYDROFORMER-Johnny Yoon MD MD kdr Prokisch, Amanda, RN RN ap3 Angelina Murillo RN RN jh5
--- NOTE | 2022-10-30 17:23 | ER ---
Nurse's Notes [facility] Name: Frida Arriola Age: 47 yrs Sex: Female : 1975 Arrival Date: 10/30/2022 Time: 14:53 Bed 19 Private MD: Diagnosis: Local infection of the skin and subcutaneous tissue, unspecified Presentation: 10/30 14:57 Chief complaint: Patient states: she has a wound on her left lower leg with some ap3 inflammation, and because she is a diabetic she wanted to get it evaluated quickly. Patient started noticing the swelling and inflammation approx one week ago. Coronavirus screen: At this time, the client does not indicate any symptoms associated with coronavirus-19. Ebola Screen: No symptoms or risks identified at this time. Initial Sepsis Screen: Does the patient meet any 2 criteria? No. Patient's initial sepsis screen is negative. Does the patient have a suspected source of infection? No. Patient's initial sepsis screen is negative. Risk Assessment: Do you want to hurt yourself or someone else? Patient reports no desire to harm self or others. Onset of symptoms was October 16, 2022. 14:57 Method Of Arrival: Ambulatory ap3 14:57 Acuity: ISI 3 ap3 Triage Assessment: 15:00 General: Appears in no apparent distress. Behavior is calm, cooperative. Pain: ap3 Complains of pain in left aldana Pain began gradually, over the last week. Neuro: Level of Consciousness is awake, alert, obeys commands, Oriented to person, place, time, situation. Cardiovascular: Patient's skin is warm and dry. Respiratory: Airway is patent Respiratory effort is even, unlabored. Derm: Wound noted left aldana. HI LO DRIVER: 15:01 LMP N/A - Hysterectomy ap3 Historical: - Allergies: 14:59 No Known Allergies; ap3 - PMHx: 14:59 Diabetes - IDDM; Hypertension; ap3 - Immunization history:: Client reports receiving the 2nd dose of the Covid vaccine, Flu vaccine is not up to date. - Social history:: Smoking status: Patient denies any tobacco usage or history of. Screenin:[facility] ED Fall Risk Assessment (Adult) History of falling in the last 3 months, ap3 including since admission No falls in past 3 months (0 pts). Abuse screen: Denies threats or abuse. Nutritional screening: No deficits noted. Tuberculosis screening: No symptoms or risk factors identified. Assessment: 15:14 Reassessment: Glucose taken and is 62, patient begins to state; "That's so low!! How am german I awake?? I don't wanna pass out! I am so glad I brought a banana!!" Pt begins to get banana out of her bag and eat it so she "can get her sugar up". 15:16 Reassessment: Pt exhibits no symptoms of hypoglycemia, denies being dizzy and has been jh5 walking around the ER to a friends room who is also checked in and also trying to track down "her doctor" (who was sitting at the designated providers area charting at the moment) for greater than 15 minutes, requiring attempts of redirection to get patient back to her room. 15:41 Reassessment: asking for provider to come in and see her so she can talk to her about german having blood taken so she can make sure there is no infection in her blood. Will notify provider. Vital Signs: 14:57 BP 147 / 91; Pulse 87; Resp 18; Temp 98.3; Pulse Ox 98% ; Weight 88.45 kg; Height 5 ft. ap3 5 in. (165.10 cm); 16:40 BP 144 / 87; Pulse 84; Resp 18; Pulse Ox 99% ; jh5 14:57 Body Mass Index 32.45 (88.45 kg, 165.10 cm) ap3 ED Course: 14:53 Patient arrived in ED. rg4 14:55 Melinda Mcfadden FNP-C is [facility]. kb 14:55 Johnny Juarez MD is Attending Physician. kb 14:59 Triage completed. ap3 15:01 Arm band placed on left wrist. ap3 15:18 Patient has correct armband on for positive identification. Call light in reach. Side [facility] rails up X 1. 15:18 No provider procedures requiring assistance completed. jh5 17:34 Patient did not have IV access during this emergency room visit. 5 Administered Medications: 16:28 Drug: DiFLUcan (fluconazole) 150 mg Route: PO; 5 Medication: 15:18 VIS not applicable for this client. [facility] Outcome: 17:22 Discharge ordered by . kb 17:34 Discharged to home ambulatory. jh5 17:34 Condition: good 17:34 Discharge instructions given to patient, Instructed on discharge instructions, follow up and referral plans. medication usage, safety practices, Demonstrated understanding of instructions, follow-up care, medications, Prescriptions given X 4. 17:34 Patient left the ED. [facility] Signatures: Melinda Mcfadden, STONECUTTER APPRENTICE HAND-C STONECUTTER APPRENTICE HAND-Melony Sánchez rg4 Mery Gonzalez RN RN ap3 Angelina Murillo RN RN jh5
[2022-10-30 17:54] VITALS: TEMP 98.3
[2022-10-30 17:55] VITALS: BP 144/87; O2SAT 99
== END 2022-10-30 17:34 | disposition home or self-care (01) ==
LOC: ER 14:49
DX: L08.9 Local infection of the skin and subcutaneous tissue, unspecified (principal); E11.9 Type 2 diabetes mellitus without complications
CPT/HCPCS: 81003; 81015; 82947; 99283

== ENCOUNTER 2022-12-07 18:23 | Emergency (ER) | payer BC, OTHER ==
--- OUTSIDE RECORDS SUMMARY | 2022-12-07 18:42 | XMS REPORT | Continuity of Care Document ---
:1975 Author Organization [facility] t Address [address] [place] [address] Care Team Providers Name Role Phone Logan HARGROVE, Kailee Primary Care Physician DR DI COTTON Attending Clinician Unavailable [phone] Attending Clinician Unavailable [id number] Attending Clinician Unavailable DR KARTIK BORRGEO Attending Clinician Unavailable [phone] Attending Clinician Unavailable DENZEL TRINIDAD Attending Clinician Unavailable LUCY RESENDIZ Attending Clinician Unavailable NILDA WILDER DR FRED [place] Attending Clinician Unavailable Melva Mcdonald Attending Clinician Unavailable Nichole Ulloa MD Attending Clinician Virtual, Surgeon Attending Clinician Unavailable NICHOLE ULLOA Attending Clinician Unavailable Tami Mcdaniels MA Attending Clinician Unavailable Maksim Rodriguez Attending Clinician Unavailable Denzel Trinidad MD Attending Clinician DR ALICIA SUBRAMANIAN Attending Clinician Unavailable NICHOLE ULLOA Attending Clinician Unavailable Clarissa HANKS, Taylor Attending Clinician Unavailable Madina Downey MD Attending Clinician DR SONAL MERCEDES Attending Clinician UnavailDR GLYNN Acosta Attending Clinician Unavailable [phone] Attending Clinician Unavailable Klaudia Barrera MD, Aba Attending Clinician [phone] KLAUDIA BARRERA ABA Attending Clinician Unavailable Prema Guerra NP Attending Clinician [phone] ANIN RÍOS Attending Clinician Unavailable [phone] Attending Clinician Unavailable ISMAEL JIMENEZ Attending Clinician Unavailable Beatris Ho MD Attending Clinician Ismael Jimenez MD Attending Clinician [phone] JOSUÉ VALDEZ Attending Clinician Unavailable [phone] Attending Clinician Unavailable Manny Segundo MD Attending Clinician MANNY SEGUNDO Attending Clinician Unavailable Kaela Lomax RN Attending Clinician Unavailable Carmel Jade MD Attending Clinician Biju Mendoza Attending Clinician 1[facility] Attending Clinician Unavailable Rianna Weinstein RN Attending Clinician Unavailable Antonio Valentine RN Attending Clinician Unavailable Winnie Tipton RN Attending Clinician Unavailable AMEYA COFFEY Attending Clinician Unavailable PREMA GUERRA Attending Clinician Unavailable Zain Dior Attending Clinician Unavailable Shaye Loza MD Attending Clinician [phone] SHAYE LOZA Attending Clinician Unavailable 3, [facility] Attending Clinician Unavailable Julien Sotomayor MA Attending Clinician Unavailable Pawan Hercules MD, Terry Macdonald Attending Clinician [phone] LIZZ CHARLTON Attending Clinician Unavailable MACK Attending Clinician Unavailable Daniel Attending Clinician Unavailable MARINA BOYCE Attending Clinician Unavailable BECCA GARY Attending Clinician Unavailable DR TIMA CHILDS Attending Clinician Unavailable PEPPER TRIVEDI Attending Clinician Unavailable DR DOMINIC GUERRA Attending Clinician Unavailable BACCHELSY, DR SEVILLA Admitting Clinician Unavailable SALIMA, DR VERDUGO Admitting Clinician Unavailable DENZEL TRINIDAD Admitting Clinician Unavailable RESENDIZ, LUCY GODWIN Admitting Clinician Unavailable TINA, NILDA, DR YAAKOV MANCIA Admitting Clinician Unavailable NICHOLE ULLOA Admitting Clinician Unavailable MORIS, DR VARGAS Admitting Clinician Unavailable DAREN, DR SONAL BECK Admitting Clinician Unavailsapphire SPAULDING, DR MAKI Admitting Clinician Unavailable KHUSHBU, DR GILLETTE Admitting Clinician Unavailable JOSÉ MIGUEL, DR MOSES Admitting Clinician Unavailable ANNA_CHRIS Admitting Clinician Unavailable Daniel Admitting Clinician Unavailable AMADEO, DR ALFRED Admitting Clinician Unavailable PEPPER TRIVEDI Admitting Clinician Unavailable DR DOMINIC GUERRA Admitting Clinician Unavailable Payers Payer Name Policy Type Policy Number Effective Date Expiration Date S our BCBS/BLUE [id number] ADVANTAGE-HMO - OP BCBS/BLUE [id number] ADVANTAGE-HMO - OP BCBS ADV HMO [id number] 2021 EXCHANGE 00:00:00 [id number] 2022 00:00:00 BLUE ADVANTAGE [id number] 2021 HMO-MARKETPLACE - 00:00:00 BCBS [id number] 2022 00:00:00 [place] [id number] 2020 ADVANTAGE (HMO) 00:00:00 Problems Condition Condition [...] Disease Active Last [facility] hernia hernia 7 Ass[facility]men [facility] 00:00: t & Plan: Medical 00 [facility] g of this note might be different from the original. She has a small and reducible umbilical hernia which is causing her to have pain near the umbilicus . We will refer her to Dr. Bridget Perry for hernia repair. Recommend use of abdominal binder with activity and limiting heavy lifting. Post-opera Post-opera Disease Active Last [facility] complicati complicati 00:00: t & Plan: Medical on on [facility] g of this note might be different from the original. She continues to have numbness surroundi ng her abdominal incision. Numbness resulted in accidenta l burn on her abdomen while cooking. Recommend continued precautio ns due to areas of numbness. Sore Sore Disease Active Last [facility] t & Plan: Medical 00 [facility] g of this note might be different from the original. We encourage d her to follow up with PCP for throat culture and further evaluatio n of sore throat. She is currently taking Nyquil to assist with pain. DVT (deep DVT (deep Disease Active [facility] venous [facility] 4-[facility] thrombosis thrombosis 00:00: t & Plan: Medical ) ) 00 [facility] g of this note might be different from the original. She will continue to follow up with Hematolog y for managemen t of anticoagu lation. Bilateral Bilateral Disease Active [facility] lower lower 4-[facility] extremity extremity 00:00: t & Plan: M edical edema edema 00 [facility] g of this note might be different [...] 3-30 [facility] anemia anemia 00:00: Medical 00 [place] Hyperlipid Hyperlipid Disease Active [facility] emia emia 3-30 [facility] 00:00: Medical 00 [place] Essential Essential Disease Active Last [facility] hypertensi hypertensi 3-30 [facility] on on 00:00: t & Plan: Medical 00 [facility] g of this note might be different from the original. Continue to take blood pressure medicatio ns as prescribe d. Follow up with PCP as scheduled . Anxiety Anxiety Disease Active [facility] 3-30 [facility] 00:00: Medical [address] [place] [address] Acute Acute Disease Active Last [facility] post-opera post-opera 3-30 [facility] tive pain tive pain 00:00: t & Plan: M edical [address] [place] [address] g of this note might be different from the original. She reports pain at the incision since her operation . There has been difficult ies with finding an appropria te regimen to manage pain. She is taking [place] as needed and Tylenol at this time. We recommend she no longer use [place] and start alternati ng Tylenol #3 and Tylenol to assist with pain control. We also discussed splinting abdomen, and increasin g physical activity as able. Nausea Nausea Disease Active [facility] 3-30 [facility] 00:00: Medical [address] [place] [address] Acute Acute Disease Active Last [facility] respirator respirator 3-30 [facility] y y 00:00: t & Plan: Medical insufficie insufficie [address] [place] [address] ncy ncy g of this note might be different from the original. She no longer requires supplemen nataliya oxygen and reports no shortness of breath in clinic today. Hyperchlor Hyperchlor Disease Active [facility] emia emia 3-30 [facility] 00:00: Medical [address] [place] [address] Hypophosph Hypophosph Disease Active [facility] atemia atemia 3-30 [facility] 00:00: Medical [address] [place] [address] Diabetic Diabetic Disease Active [facility] neuropathy neuropathy 3-30 [facility] 00:00: Medical [address] [place] [address] Leukocytos Leukocytos Disease Active Last [facility] is is 3-30 [facility] 00:00: t & Plan: Medical [address] [place] [address] g of this note might be different from the original. WBC continues to increase. Patient reports fevers. We will obtain cross sectional imaging to rule out intra-abd ominal infection . H/O H/O Disease Active Last [facility] resection resection 3-29 Assessmen Gigi curry of liver of liver 00:00: t & Plan: Med ical 00 [facility] g of this note might be different from the original. She will continue to follow up with Oncology for managemen t and treatment of biopsy proven HCC. We will plan to obtain cross sectional imaging every three months to continue to monitor. Planning to have MRI this afternoon . 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 Pt with multiple cardiac risk factors requiring pre-op cardiac clearance PLAN:1. Schedule echocardi ogram to evaluate LVEF due to SOB and valvular heart diseaese Sinus Sinus Disease Active Overview: [facility] tachycardi tachycardi 11-21 [facility] a a 00:00: g of this note Medicin might be e different from the original. Hx of Sinus tachycard ia on toprol xl 100 mgPLAN:1. Check labs including TSH and CBC to evaluate cause2. Check echo3. Continue current medicatio ns. Essential Essential Disease Active Overview: [facility] hypertensi hypertensi 11-21 [facility] on on 00:00: g of this note Medicin might be e different from the original. HTN controlle d on current medicatio ns.PLAN:1 . Continue lisinopri l-hztc and toprol xl. Pre-op Pre-op Disease Active [facility] St examinatio examinatio 2 Assessmen Josr n n 00:00: t & Plan: Medical [address] [place] [address] g of this note might be different from the original. She has been cleared by uRpesh feliciano - Dr. Stark. She is pending cardiolog y clearance from Dr. Villalta - Cardiolog y. Diabetes Diabetes Disease Active [facility] S t 2 Ass[facility]men [facility] 00:00: t & Plan: Medical [address] [place] [address] g of this note might be different from the original. Se reports blood glucoses are well controlle d on current regimen. She will continue to follow up with PCP. Liver Liver Disease Active Last [facility] lesion lesion -19 [facility] 00:00: t & Plan: Medical [address] [place] [address] g of this note might be different from the original. She will continue to follow up with Oncology for managemen t and treatment of biopsy proven HCC. We will plan to obtain cross sectional imaging every three months to continue to monitor. Immunity Immunity Disease Active [facility] testing testing 00:00: t & Plan: Medic al [address] [place] [address] g of this note might be different from the original. All patients with liver disease, regardles s of etiology, should be immunized to prevent hepatitis A and hepatitis B if they are not already immune. We will test for immunity to both viruses - vaccine recommend ations will follow. Adnexal Adnexal Disease Active Last [facility] mass mass 5-19 [facility] 00:00: t & Plan: Medical [address] [place] [address] g of this note might be different from the original. CT shows right adenexa solid mass which is concernin g for ovarian neoplasm vs. Fibroid. Continue to follow up with Gynecolog y for further investiga tion. Obesity Obesity Disease Active Last [facility] 5-19 [facility] 00:00: t & Plan: Medical [address] [place] [address] g of this note might be different [...] ents Source Name Type Date Date Clinician TRAMADOL Allergy Active N\\T\\V [facility] 2-21 00:00: 00 DIPHENHY Allergy Active Other [facility] DRAMINE 2- HCL 00:00: 00 Diphenhy Drug Active Other (See IV makes [facility] dramine Intolera Comments) 2 pt. [facility] Hcl nce 00:00: [facility] Tramadol Drug Active Nausea And Dizzy [facility] Intolera Vomiting 2 feels [facility] nce 00:00: really Medical [address] [place] [address] Center No Known DA Active [facility] s No Known MA Active UNKNOWN [facility] No Known MA Active UNKNOWN [facility] No Known MA Active UNKNOWN [facility] NO KNOWN Allergy Active [facility] ALLERGIE [facility] Family History Family Member Diagnosis Comments Start Date Stop Date Source Natural father Diabetes [facility] Natural mother Diabetes [facility] Natural mother Hypertension [facility] Natural sister Diabetes [facility] Natural sister Hypertension [facility] Social History Social Habit Start Date Stop Date Quantity Comments Source History [facility] Std Drinks Medici ne History [facility] of Alcohol Binge Medicine Exposure to 2022-11-23 2022-12-[address] [facility] SARS-CoV-2 (event) 00:00:00 09:42:00 [facility] Alcohol intake 2022-12-03 2022-12-03 Ex-drinker [facility] 00:00:00 00:00:00 (finding) Medical Center History [facility] 2021-10-24 2021-10-24 [facility] ge of Alcohol Frequency 00:00:00 00:00:00 Medicin e Tobacco use and 2021-02-26 2021-02-[address] [facility] Angie kes exposure 00:00:00 00:00:00 [facility] Alcohol Comment 2019-03-30 2019-03-30 occasionally. Method ist 00:00:00 00:00:00 Hospital Sex Ass[birth year] At [birth year] [place] 00:00:00 00:00:00 Hospital Smoking Status Start Date Stop Date Source Never smoker [facility] Medications Ordered Filled Start Stop Current Ordering Indication Dosage Frequency Signature Comments Components Source Medication Medication Date Date Medication? Clinician (SIG) Name Name insulin Yes Inject [facility] 70/30, 2-21 subcutaneo [facility] insulin 19:22: usly 2 Medical NPH-insulin 09 (two) Center regular, times (HumuLIN daily 70/30) 100 before unit/mL meals. (70-30) injection metFORMIN Yes 1000mg Take 1,[address] [facility] (GLUCOPHAGE 2-21 mg by [facility]ukes ) 1000 MG 19:22: mouth 2 Medic al tablet 09 (two) Center times daily with breakfast and dinner. hydrOXYzine Yes 25mg Take [address] [facility] (ATARAX) 25 2-21 by mouth Luke s MG tablet 19:22: every 8 Medic al 09 (eight) Center hours as needed for Itching. losartan-hy Yes 1{tbl} QD Take [address] droCHLOROth 2-21 tablet by Corina es iazide 19:22: mouth Medical (HYZAAR) 09 daily. Center 50-12.5 mg per tablet insulin 2021-[address] [facility] 70/30, 2-28 subcutaneo [facility] insulin 10:52: usly 2 Medical NPH-insulin 33 (two) Center regular, times (HumuLIN daily 70/30) 100 before unit/mL meals. (70-30) injection metFORMIN 2021-10 Yes 1000mg Take 1,[address] [facility] (GLUCOPHAGE 2-28 mg by [facility] ) 1000 MG 10:52: mouth 2 Medic al tablet 33 (two) Center times daily with breakfast and dinner. hydrOXYzine 2021-10 Yes 25mg Take [address] [facility] (ATARAX) 25 2-28 by mouth Luke s MG tablet 10:52: every 8 Medic al 33 (eight) Center hours as needed for Itching. losartan-hy 2021-10 Yes 1{tbl} QD Take [address] droCHLOROth 2-28 tablet by Corina es iazide 10:52: mouth Medical (HYZAAR) 33 daily. Center 50-12.5 mg per tablet lisinopriL 2021-10- No 20mg Take [address] [facility] (PRINIVIL,Z 2-23 12-23 by mouth. Angie kes ESTRIL) 20 09:15: 00:00 Medica l MG tablet 33 :00 [place] lisinopriL 2021-10- No 20mg Take [address] [facility] (PRINIVIL,Z 12-05 by mouth. Angie kes ESTRIL) 20 09:15: 00:00 Medica l MG tablet 33 :00 [place] cholestyram 2021-10- Yes Cholestasis 1{packe Q.14562255 Take [address] [facility] ine 12-04 t} [id number] packet by Corina es (QUESTRAN) 00:00: 23:59 3D mouth 3 Med [...] by Center mouth 2 (two) times daily. cholestyram 2021-10- Yes Cholestasis 1{packe Q.37364601 Take [address] [facility] ine -10-03 t} [id number] packet by Corina es (QUESTRAN) 00:00: 23:59 3D mouth 3 Med ical 4 gram PwPk 00 :00 (three) Cente r packet times daily Please do not take any food or medication s 2 hours prior to and 2 hours after this medication . ursodioL 2021-10- Yes Cholestasis 300mg Q.5D Take [address] [facility] (ACTIGALL) -10-03 capsule [facility] 300 mg 00:00: 23:59 (300 [...] Center (two) times daily for 98 days. apixaban 2021- No 5mg Q.5D Take [address] [facility] (ELIQUIS) 5 01-2825 tablet (5 Angie kes mg Tab 00:00: 23:59 mg total) Medic al tablet 00 :00 by mouth 2 Center (two) times daily for 98 days. acetaminoph 2021- No Generalized 1{tbl} Take [address] [facility] en-codeine 01-28- abdominal tablet by Josr (TYLENOL 00:00: 23:59 pain mouth Medical #3) 300-30 00 :00 every 6 Center mg per (six) tablet hours as needed for Pain for up to 10 days. Max Daily Amount: 4 tablets acetaminoph 2021- No Generalized 1{tbl} Take [address] [facility] en-codeine 01-28- abdominal tablet by Josr (TYLENOL 00:00: 23:59 pain mouth Medical #3) 300-30 00 :00 every 6 Center mg per (six) tablet hours as needed for Pain for up to 10 days. Max Daily Amount: 4 tablets furosemide 2021- No Generalized 40mg Take [address] [facility] (Lasix) 40 01-28-25 abdominal tablet (40 [facility] MG tablet 00:00: 23:59 pain mg total) Me dical 00 :00 by mouth Center daily as needed (as needed for leg swelling) for up to 7 days. furosemide 2021- No Generalized 40mg Take [address] [facility] (Lasix) 40 01-28-25 abdominal tablet (40 [facility] MG tablet 00:00: 23:59 pain mg total) Me dical 00 :00 by mouth Center daily as needed (as needed for leg swelling) for up to 7 days. clindamycin 2021- No 300mg Q.[id number] Take [address] (CLEOCIN) 413 - [id number] mg by Angie kes 300 MG 09:00: 00:00 3D mouth 3 Medical capsule 22 :00 (three) Center times daily. fenofibrate 2021- No 145mg QD Take [address] (TRICOR) 4-13 04-13 mg by Luamol 145 MG 09:00: 00:00 mouth Medical tablet 22 :00 daily. Center clindamycin 2021- No 300mg Q.[id number] Take [address] (CLEOCIN) 4-13 -13 [id number] mg by Angie carmichael 300 MG 09:00: 00:00 3D mouth 3 Medical capsule 22 :00 (three) Center times daily. fenofibrate 2021- No 145mg QD Take [address] [facility] (TRICOR) 4-13 04-13 mg by Luamol 145 MG 09:00: 00:00 mouth Medical tablet 22 :00 daily. Center HYDROcodone 2021- No 1{tbl} Take [address] -acetaminop -23 tablet by Angie harrington (NORCO 00:00: 23:59 mouth Medic al 10-325) 00 :00 every 6 Center 10-325 mg (six) per tablet hours as needed for up to 10 days. Max Daily Amount: 4 tablets simethicone 2021- No 80mg Q.25D Take [address] (MYLICON) 01-23-23 tablet (80 Corina es 80 MG 00:00: 23:59 mg total) Medica l chewable 00 :00 by mouth 4 Cente r tablet (four) times daily for 10 days. HYDROcodone 2021- No 1{tbl} Take [address] -acetaminop 01-2323 tablet by Angie harrington (NORCO 00:00: 23:59 mouth Medic al 10-325) 00 :00 every 6 Center 10-325 mg (six) per tablet hours as needed for up to 10 days. Max Daily Amount: 4 tablets simethicone 2021- No 80mg Q.25D Take [address] (MYLICON) 01-23-23 tablet (80 Corina es 80 MG 00:00: 23:59 mg total) Medica l chewable 00 :00 by mouth 4 Cente r tablet (four) times daily for 10 days. amoxicillin 2021- No 1{tbl} Q.5D Take [address] -clavulanat - 04-20 tablet by Angie kes e 00:00: 23:59 mouth 2 Medical (AUGMENTIN) 00 :00 (two) Center 875-125 mg times per tablet daily for 7 days. amoxicillin 2021- No 1{tbl} Q.5D Take [address] -clavulanat 4-13 04-20 tablet by Angie kes e 00:00: 23:59 mouth 2 Medical (AUGMENTIN) 00 :00 (two) Center 875-125 mg times per tablet daily for 7 days. furosemide 2021-2021- No 40mg Take [address] [facility] (Lasix) 40 4-13 04-18 tablet (40 Angie kes MG tablet 00:00: 00:00 mg total) Me dical 00 :00 by mouth Center daily as needed (as needed for leg swelling) for up to 7 days. furosemide 2021-0 2021- No 40mg Take [address] [facility] (Lasix) 40 4-13 04-18 tablet (40 Angie kes MG tablet 00:00: 00:00 mg total) Me dical 00 :00 by mouth Center daily as needed (as needed for leg swelling) for up to 7 days. apixaban 2021-0 2021- No 10mg Q.5D Take [address] [facility] (ELIQUIS) 5 4-13 04-17 tablets Luke s mg Tab 00:00: 23:59 (10 mg Medical tablet 00 :00 total) by Center mouth 2 (two) times daily for 4 days. apixaban 2021-0 2021- No 10mg Q.5D Take [address] (ELIQUIS) 5 4-13 04-17 tablets Luke s mg Tab 00:00: 23:59 (10 mg Medical tablet 00 :00 total) by Center mouth 2 (two) times daily for 4 days. HUMALOG 100 Yes INJECT 10 [facility] UNIT/ML 2-16 UNITS College injection 00:00: SUBCUTANEO of 00 USLY THREE Medicin TIMES e DAILY fenofibrate 0 Yes 145mg Take 145 [facility] (TRICOR) 2-15 mg by College 145 MG 00:00: mouth of tablet 00 [...] Med icin UNIT/ML daily. e SUSP metformin 0 Yes 1000mg Take 1,000 [facility] (GLUCOPHAGE 1-08 mg by [place] -XR) 500 MG 00:00: mouth two o f XR tablet 00 times Medicin daily. e metformin 2021-0 Yes 1000mg Take 1,000 [facility] (GLUCOPHAGE 1-08 mg by [place] -XR) 500 MG 00:00: mouth two o f XR tablet 00 times Medicin daily. e metformin 2021-0 Yes 1000mg Take 1,000 [facility] (GLUCOPHAGE 1-08 mg by [place] -XR) 500 MG 00:00: mouth two o f XR tablet 00 times Medicin daily. e FARXIGA 10 2020-10 Yes 10mg Take 10 mg [facility] MG TABS 2-29 by mouth [place] 00:00: daily. of Medicin e FARXIGA 10 2020-10 Yes 10mg Take 10 mg [facility] MG TABS 2-29 by mouth [place] 00:00: daily. of Medicin e FARXIGA 10 2020-10 Yes 10mg Take 10 mg [facility] MG TABS 2-29 by mouth [place] 00:00: daily. of 00 Medicin e lisinopril- [...] Col lege thiazide 00:00: mouth of (PRINZIDE, 00 daily. Medicin ZESTORETIC) e 20-25 MG per tablet Farxiga 10 2020-0 Yes 10mg QD Take [address] mg tablet 4-26 by mouth [facility] 00:00: daily. [place] [address] Center [facility] 10 2020-0 Yes 10mg QD Take [address] mg tablet 4-26 by mouth [facility] 00:00: daily. [address] clonazePAM 1-0 Yes .5mg Take 0.[address] [facility] (KlonoPIN) 4-21 mg by [facility] 0.5 MG 00:00: mouth 2 Medical tablet 00 (two) Center times daily as needed for anxiety. gabapentin 2020-0 Yes 300mg Q.5D Take [address] (NEURONTIN) 4-21 mg by [facility] 300 MG 00:00: mouth 2 Medical capsule 00 (two) Center times daily. clonazePAM 1-0 Yes .5mg Take 0.[address] (KlonoPIN) 4-21 mg by [facility] 0.5 MG 00:00: mouth 2 Medical tablet 00 (two) Center times daily as needed for anxiety. gabapentin 2020-0 Yes 300mg Q.5D Take [address] (NEURONTIN) 4-21 mg by [facility] 300 MG 00:00: mouth 2 Medical capsule 00 (two) Center times daily. clonazepam 1-0 Yes .5mg Take 0.5 [facility] (KLONOPIN) 4-21 mg by [place] 0.5 MG 00:00: mouth as of tablet 00 needed. Medicin e gabapentin 2020-0 Yes 300mg Take 300 [facility] (NEURONTIN) 4-21 mg by [place] 300 MG 00:00: mouth two of capsule 00 times Medicin daily. e clonazepam 1-0 Yes .5mg Take 0.5 [facility] (KLONOPIN) 4-21 mg by College 0.5 MG 00:00: mouth as of tablet 00 needed. Medicin e gabapentin 1-0 Yes 300mg Take 300 [facility] (NEURONTIN) 4-21 mg by [facility] 300 MG 00:00: mouth two of capsule 00 times Medicin daily. e clonazepam 2021-0 Yes .5mg Take 0.5 [facility] (KLONOPIN) 4-21 mg by [facility] 0.5 MG 00:00: mouth as of tablet 00 needed. Medicin e gabapentin 1-0 Yes 300mg Take 300 [facility] (NEURONTIN) 4-21 mg by [facility] 300 MG 00:00: mouth two of capsule 00 times Medicin daily. e metoprolol 2020-0 Yes 100mg QD Take [address] succinate 4-16 mg by [facility] (TOPROL-XL) 00:00: mouth Medic al 100 MG 24 00 daily. Center hr tablet metoprolol 2020-0 Yes 100mg QD Take [address] succinate 4-16 mg by [facility] (TOPROL-XL) 00:00: mouth Medic al 100 MG 24 00 daily. Center hr tablet metoprolol 2020-0 Yes 100mg Take 100 [facility] (TOPROL-XL) 4-16 mg by [place] 100 MG XL 00:00: mouth of tablet 00 daily. Medicin e metoprolol 2020-0 Yes 100mg Take 100 [facility] ylor (TOPROL-XL) 4-16 mg by [place] 100 MG XL 00:00: mouth of tablet 00 daily. Medicin e metoprolol 2020-0 Yes 100mg Take 100 [facility] (TOPROL-XL) 4-16 mg by [place] 100 MG XL 00:00: mouth of tablet 00 daily. Medicin e metFORMIN 2020-0 2021- No 1000mg Q.5D Take 1,[address] [facility] (GLUCOPHAGE 4-16 04-13 [facility]) 500 MG 00:00: 00:00 mouth 2 Me dical 24 hr 00 :00 (two) Center tablet times daily. metFORMIN 2020-0 2021- No 1000mg Q.5D Take 1,[address] [facility] (GLUCOPHAGE 4-16 04-13 [facility]) 500 MG 00:00: 00:00 mouth 2 Me dical 24 hr 00 :00 (two) Center tablet times daily. metoprolol 2019-0 Yes 100mg Q.5D Take 100 Me thodi tartrate 1-[address] (LOPRESSOR) 01:42: mouth 2 Hos pily 100 mg 17 (two) l tablet times a day. gabapentin 2020-0 Yes 100mg [id number] Take 100 [facility] (NEURONTIN) 1-19 [id number] mg by s t 100 mg 01:42: [...] leuprolide 2020-0 Yes 3.75mg Q28D Inject Met [facility] (LUPRON) 1-[address] 3.75 mg 01:42: into the Hospit a injection 17 shoulder, l thigh, or buttocks every 28 days. gabapentin 2020-0 Yes 100mg [id number] Take 100 [facility] (NEURONTIN) 1-19 [id number] mg by s t 100 mg 01:42: [...] leuprolide 2020-0 Yes 3.75mg Q28D Inject [facility] (LUPRON) 1-[address] 3.75 mg 01:42: into the Hospit a injection 17 shoulder, l thigh, or buttocks every 28 days. metoprolol 2020-0 Yes 100mg Q.5D Take 100 Me thodi tartrate 1-[address] (LOPRESSOR) 01:42: mouth 2 Hos pily 100 mg 17 (two) l tablet times a day. clonazepam clonazepam No clonazepam [place] 0.5 mg [...] Date Status Commen ts Source Name Name [facility] SARS-CoV-2 2021-06-11 Completed [facility] Vaccination 00:00:00 of Medicine Pfizer SARS-CoV-2 2021-05-21 Completed [facility] Vaccination 00:00:00 of Medicine Vital Signs Vital Name Observation Time Observation Value Comments Source HEIGHT 2021-05-01 10:50:00 166.4 cm WEIGHT 2021-05-01 10:50:00 90.719 kg Height 2022-10-19 21:20:00 167.64 CM Weight 2022-10-19 21:20:00 86.18 KG Height 2022-09-18 00:34:00 167.64 CM Weight 2022-09-18 00:34:00 86.63 KG Systolic blood 2022-05-17 16:31:00 113 mm[Hg] [facility] Medicine Diastolic blood 2022-05-17 16:31:00 76 mm[Hg] [facility] Medicine Heart rate 2022-05-17 16:31:00 88 /min [facility] Body height 2022-05-17 16:31:00 165.1 cm [facility] Body weight 2022-05-17 16:31:00 91.173 kg [facility] BMI 2022-05-17 16:31:00 33.45 kg/m2 [facility] HEIGHT 2022-02-07 11:11:00 165.1 cm WEIGHT 2022-02-07 [...] kg Systolic blood 2021-11-21 17:24:00 120 mm[Hg] [facility] pressure Medicine Diastolic blood 2021-11-21 17:24:00 80 mm[Hg] [facility] pressure Medicine Heart rate 2021-11-21 17:24:00 103 /min [facility] Respiratory rate 2021-11-21 17:24:00 16 /min [facility] Body height 2021-11-21 17:24:00 165.1 cm [facility] Body weight 2021-11-21 17:24:00 97.07 [facility] BMI 2021-11-21 17:24:00 35.61 kg/m2 [facility] Oxygen saturation in 2021-11-21 17:24:00 99 /min [facility] Arterial blood by Medicine Pulse oximetry HEIGHT 2021-11-15 10:28:00 152.4 cm WEIGHT 2021-11-15 10:28:00 94.167 kg HEIGHT 2021-11-15 10:28:00 152.4 cm WEIGHT 2021-11-15 10:28:00 94.167 kg Systolic blood 2021-10-24 21:09:00 130 mm[Hg] [facility] pressure Medicine Diastolic blood 2021-10-24 21:09:00 86 mm[Hg] [facility] Medicine Heart rate 2021-10-24 21:09:00 102 /min [facility] Body temperature 2021-10-24 21:09:00 37.11 Sheri [facility] Body height 2021-10-24 21:09:00 166.4 cm [facility] Body weight 2021-10-24 21:09:00 96.888 kg [facility] BMI 2021-10-24 21:09:00 35.00 kg/m2 [facility] HEIGHT 2021-09-20 09:27:49 152.4 cm WEIGHT 2021-09-20 [...] BMI (Body Mass 2021-04-30 00:00:00 32.7 kg/m2 [facility] BP Systolic 2021-04-30 00:00:00 112 mm[Hg] [facility] Body Weight 2021-04-30 00:00:00 202.5 [lb_av] [facility] BMI (Body Mass 2021-04-24 00:00:00 33.4 kg/m2 [facility] BP Systolic 2021-04-24 00:00:00 137 mm[Hg] [facility] Body Weight 2021-04-24 00:00:00 207.2 [lb_av] [facility] BP Diastolic 2021-04-24 00:00:00 89 mm[Hg] [facility] Height 2021-04-24 00:00:00 66 [in_i] [facility] HEIGHT 2021-02-26 08:23:00 166.5 cm WEIGHT 2021-02-26 08:23:00 91.354 kg HEIGHT 2021-02-26 08:23:00 166.5 cm WEIGHT 2021-02-26 08:23:00 91.354 kg Height 2019-10-28 12:01:00 165.1 CM Weight 2019-10-28 12:01:00 99.79 KG Systolic blood 2022-12-03 18:10:00 138 mm[Hg] [facility] Diastolic blood 2022-12-03 18:10:00 83 mm[Hg] [facility] Heart rate 2022-12-03 18:10:00 76 /min [facility] Body temperature 2022-12-03 18:10:00 36.44 Sheri [facility] Respiratory rate 2022-12-03 18:10:00 18 /min [facility] Oxygen saturation in 2022-12-03 18:10:00 100 /min [facility] Arterial blood by Medical Ce nter Pulse oximetry Body height 2022-12-03 10:01:00 167.6 cm [facility] Body weight 2022-12-03 10:01:00 86.3 kg [facility] BMI 2022-12-03 10:01:00 30.71 kg/m2 [facility] Systolic blood 2022-10-09 10:48:00 140 mm[Hg] [facility] Diastolic blood 2022-10-09 10:48:00 81 mm[Hg] [facility] Heart rate 2022-10-09 10:48:00 91 /min [facility] Body temperature 2022-10-09 10:48:00 37.28 Sheri [facility] Respiratory rate 2022-10-09 10:48:00 20 /min [facility] Body height 2022-10-09 10:48:00 165.1 cm [facility] Body weight 2022-10-09 10:48:00 86.183 kg [facility] BMI 2022-10-09 10:48:00 31.62 kg/m2 [facility] Oxygen saturation in 2022-10-09 10:48:00 100 /min [facility] Arterial blood by Medical Ce nter Pulse oximetry Procedures Procedure Date / Time Performing Clinician Source Performed IR EMBOLIZATION ARTERIAL 2022-12-03 13:35:00 Nichole Ulloa [facility] POCT , URINE 2022-12-03 10:15:00 Jonnie Mckenna [facility] CBC W/PLT COUNT & AUTO 2022-12-03 10:14:00 Clarisa [facility] HEPATIC FUNCTION PANEL 2022-12-03 10:14:00 Clarisa [facility] PROTHROMBIN TIME/INR 2022-12-03 10:14:00 Clarisa [facility] COMPREHENSIVE METABOLIC 2022-12-03 10:14:00 Kaushik Segundo [facility] TYPE AND SCREEN, AUTOMATED 2022-12-03 10:14:00 Jonnie Mckenna [facility] CBC W/PLT COUNT & AUTO 2022-12-03 10:14:00 Clarisa [facility] ECG 12-LEAD 2022-12-03 09:37:41 Faluciano [facility] ECG 12-LEAD 2022-12-03 09:37:41 Unknown, H[facility] CBC W/PLT COUNT & AUTO 2022-10-03 15:10:00 Areli [facility] COMPREHENSIVE METABOLIC 2022-10-03 15:10:00 Areli [facility] BILIRUBIN, DIRECT 2022-10-03 15:10:00 Areli [facility] CBC W/PLT COUNT & AUTO 2022-10-03 15:10:00 Areli [facility] PROTHROMBIN TIME/INR 2022-10-03 15:10:00 Areli [facility] HEPATITIS A ANTIBODY, IGG 2022-10-03 15:10:00 [facility] HEPATITIS B SURFACE ANTIGEN 2022-10-03 15:10:00 Areli [facility] HEPATITIS B SURFACE 2022-10-03 15:10:00 Areli [facility] HEPATITIS B CORE ANTIBODY, 2022-10-03 15:10:00 Arielle Sing[facility] HEPATITIS C ANTIBODY 2022-10-03 15:10:00 [facility] IRON, TIBC, % SAT. (WITHOUT 2022-10-03 15:10:00 [facility] FERRITIN 2022-10-03 15:10:00 [facility]1983[facility] [id number], SERUM 2022-10-03 15:10:00 [facility] CERULOPLASMIN 2022-10-03 15:10:00 [facility]1983[facility] ANTI-NUCLEAR ANTIBODY (LILIANA) 2022-10-03 15:10:00 [facility] ACTIN (SMOOTH MUSCLE) 2022-10-03 15:10:00 Ashley [facility] ANTIBODY, IGG [facility] MITOCHONDRIA M2 ANTIBODY 2022-10-03 15:10:00 [facility] ALPHA FETOPROTEIN (AFP), 2022-10-03 15:10:00 [facility] TUMOR MARKER [facility] NM BONE SCAN WHOLE BODY 2022-08-30 14:53:00 Nichole Ulloa I [facility] CT CHEST WITH IV CONTRAST 2022-08-30 13:20:00 Artemio [facility] MR ABDOMEN WITH & WITHOUT 2022-08-30 12:05:[address] [facility] IV CONTRAST [facility] CT CHEST WITH IV CONTRAST 2022-05-23 14:40:00 Artemio [facility] COMPREHENSIVE METABOLIC 2022-05-17 17:23:00 Nichole Ulloa [facility] PANEL Medicine CBC W/AUTO DIFF WITH 2022-05-17 17:23:00 Nichole Ulloa [facility] PLATELETS Medicine AFP TUMOR MARKER 2022-05-17 17:23:00 Nichole Ulloa [facility] CBC W/AUTO DIFF WITH 2022-05-17 12:23:00 [facility] PLATELETS Medicine COMPREHENSIVE METABOLIC 2022-05-17 12:23:00 Bayl [facility] AFP TUMOR MARKER 2022-05-17 12:23:00 [facility] MR ABDOMEN WITH & WITHOUT 2022-05-02 16:11:00 Prema Guerra [facility] IV CONTRAST [facility] CT ABDOMEN/PELVIS WITH IV 2022-02-08 01:24:00 Vic, [facility] URINALYSIS W/ REFLEX URINE 2022-02-08 01:23:00 Vic, [facility] CULTURE [facility] SCREEN, URINE 2022-02-08 01:23:00 Vic, [facility] BLOOD CULTURE 2022-02-07 23:02:00 Vic, [facility] SARS-COV2/INFLUENZA/RSV 2022-02-07 22:44:00 Vic, [facility] RT-PCR [facility] CBC W/PLT COUNT & AUTO 2022-02-07 21:51:00 Vic, [facility] BLOOD CULTURE 2022-02-07 21:51:00 Vic, [facility] CBC W/PLT COUNT & AUTO 2022-02-07 21:51:00 [facility] [place], [facility] LACTIC ACID, VENOUS 2022-02-07 21:51:00 Vic, [facility] COMPREHENSIVE METABOLIC 2022-02-07 21:51:00 [facility] [place], [facility] PROTHROMBIN TIME/INR 2022-02-07 21:51:00 [facility] [place], [facility] APTT 2022-02-07 21:51:00 [facility] PROTHROMBIN TIME/INR 2022-02-07 12:08:00 [facility] CBC W/PLT COUNT & AUTO 2022-02-07 12:07:00 [facility] BASIC METABOLIC PANEL 2022-02-07 12:07:00 [facility] CBC W/PLT COUNT & AUTO 2022-02-07 12:07:00 [facility] HEPATIC FUNCTION PANEL 2022-02-07 12:07:00 Vivi [facility] GAMMA GLUTAMYL TRANSFERASE 2022-02-07 12:07:00 Denzel Trinidad [facility] (GGT) [facility] MAGNESIUM 2022-02-07 12:07:00 Vivi [facility] PHOSPHORUS 2022-02-07 12:07:00 [facility] URINALYSIS W/ REFLEX URINE 2022-02-07 12:06:00 Denzel Trinidad [facility] CBC W/PLT COUNT & AUTO 2022-02-06 03:19:00 [facility] W/[facility]T COUNT & AUTO 2022-02-06 03:19:00 [facility] COMPREHENSIVE METABOLIC 2022-02-06 03:19:00 [facility] HCG, SERUM, QUALITATIVE 2022-02-06 03:19:00 [facility] URINALYSIS W/ MICROSCOPIC 2022-02-06 03:19:00 [facility] XR ABDOMEN/KUB 1 VIEW 2022-01-30 10:23:00 Vivi [facility] CBC W/PLT COUNT & AUTO 2022-01-28 10:35:00 [facility] CBC W/PLT COUNT & AUTO 2022-01-28 10:35:00 [facility] BASIC METABOLIC PANEL 2022-01-28 10:35:00 [facility] HEPATIC FUNCTION PANEL 2022-01-28 10:35:00 [facility] GAMMA GLUTAMYL TRANSFERASE 2022-01-28 10:35:00 Denzel Trinidad [facility] (GGT) [facility] MAGNESIUM 2022-01-28 10:35:00 [facility] PHOSPHORUS 2022-01-28 10:35:00 [facility] PROTHROMBIN TIME/INR 2022-01-28 10:35:00 Vivi [facility] POCT-GLUCOSE METER 2022-01-23 11:04:00 Vivi [facility] POCT-GLUCOSE METER 2022-01-23 07:45:00 Vivi [facility] VANCOMYCIN LEVEL, TROUGH 2022-01-23 01:51:00 Conner Brown [facility] PROTHROMBIN TIME/INR 2022-01-23 01:51:00 Vivi [facility] CBC (HEMOGRAM ONLY) 2022-01-23 01:51:00 [facility] BASIC METABOLIC PANEL 2022-01-23 01:51:00 [facility] HEPATIC FUNCTION PANEL 2022-01-23 01:51:00 Vivi [facility] MAGNESIUM 2022-01-23 01:51:00 Vivi [facility] PHOSPHORUS 2022-01-23 01:51:00 Junito [facility] VENOUS DOPPLER LEGS 2022-01-23 01:19:00 Giorgio [facility] POCT-GLUCOSE METER 2022-01-22 21:00:00 Vivi [facility] POCT-GLUCOSE METER 2022-01-22 15:18:00 [facility] POCT-GLUCOSE METER 2022-01-22 11:20:[address] [facility] [address] BRAIN WITHOUT IV 2022-01-22 08:33:00 Jagruti Hurley [facility] POCT-GLUCOSE METER 2022-01-22 07:10:00 Vivi [facility] PROTHROMBIN TIME/INR 2022-01-22 05:06:00 [facility] CBC (HEMOGRAM ONLY) 2022-01-22 05:06:00 Vivi [facility] BASIC METABOLIC PANEL 2022-01-22 05:06:00 Vivi [facility] HEPATIC FUNCTION PANEL 2022-01-22 05:06:00 Vivi [facility] MAGNESIUM 2022-01-22 05:06:00 Vivi [facility] PHOSPHORUS 2022-01-22 05:06:00 Danial [facility] POCT-GLUCOSE METER 2022-01-21 20:50:00 Vivi [facility] POCT-GLUCOSE METER 2022-01-21 15:41:00 Vivi [facility] POCT-GLUCOSE METER 2022-01-21 12:34:00 Vivi [facility] HC VENOUS DOPPLER EXT UNI 2022-01-21 11:38:00 Jagruti Hurley [facility] VANCOMYCIN LEVEL, TROUGH 2022-01-21 10:09:00 [facility] POCT-GLUCOSE METER 2022-01-21 08:14:00 Vivi [facility] CBC W/PLT COUNT & AUTO 2022-01-21 04:22:00 Mariajose [facility] PROTHROMBIN TIME/INR 2022-01-21 04:22:00 Vivi [facility] CBC (HEMOGRAM ONLY) 2022-01-21 04:22:00 Vivi [facility] BASIC METABOLIC PANEL 2022-01-21 04:22:00 Vivi [facility] HEPATIC FUNCTION PANEL 2022-01-21 04:22:00 Vivi [facility] MAGNESIUM 2022-01-21 04:22:00 Vivi [facility] PHOSPHORUS 2022-01-21 04:22:00 Danial [facility] CBC W/PLT COUNT & AUTO 2022-01-21 04:22:00 Mariajose Tanja [facility] POCT-GLUCOSE METER 2022-01-20 21:43:00 Vivi [facility] POCT-GLUCOSE METER 2022-01-20 15:50:00 Vivi [facility] POCT-GLUCOSE METER 2022-01-20 12:13:00 Vivi [facility] POCT-GLUCOSE METER 2022-01-20 08:06:00 Vivi [facility] CBC (HEMOGRAM ONLY) 2022-01-20 06:12:00 Vivi [facility] BASIC METABOLIC PANEL 2022-01-20 06:12:00 Vivi [facility] HEPATIC FUNCTION PANEL 2022-01-20 06:12:00 Vivi [facility] MAGNESIUM 2022-01-20 06:12:00 Vivi [facility] PHOSPHORUS 2022-01-20 06:12:00 Junito [facility] PROTHROMBIN TIME/INR 2022-01-20 06:11:00 Vivi [facility] BLOOD CULTURE 2022-01-19 22:54:00 [facility] POCT-GLUCOSE METER 2022-01-19 21:40:00 Vivi [facility] BLOOD CULTURE 2022-01-19 18:50:00 [facility] POCT-GLUCOSE METER 2022-01-19 16:28:00 Vivi [facility] POCT-GLUCOSE METER 2022-01-19 11:37:00 Vivi [facility] POCT-GLUCOSE METER 2022-01-19 07:29:00 [facility] PROTHROMBIN TIME/INR 2022-01-19 06:25:00 Vivi [facility] CBC (HEMOGRAM ONLY) 2022-01-19 06:25:00 Vivi [facility] BASIC METABOLIC PANEL 2022-01-19 06:25:00 Vivi [facility] HEPATIC FUNCTION PANEL 2022-01-19 06:25:00 Vivi [facility] MAGNESIUM 2022-01-19 06:25:00 Vivi [facility] PHOSPHORUS 2022-01-19 06:25:00 Danial [facility] POCT-GLUCOSE METER 2022-01-18 22:07:00 Vivi [facility] POCT-GLUCOSE METER 2022-01-18 15:41:00 Vivi [facility] POCT-GLUCOSE METER 2022-01-18 11:03:00 Vivi [facility] POCT-GLUCOSE METER 2022-01-18 08:37:00 Vivi [facility] PROTHROMBIN TIME/INR 2022-01-18 04:36:00 Vivi [facility] CBC (HEMOGRAM ONLY) 2022-01-18 04:36:00 Vivi [facility] BASIC METABOLIC PANEL 2022-01-18 04:36:00 Vivi [facility] HEPATIC FUNCTION PANEL 2022-01-18 04:36:00 Vivi [facility] MAGNESIUM 2022-01-18 04:36:00 Vivi [facility] PHOSPHORUS 2022-01-18 04:36:00 Danial [facility] POCT-GLUCOSE METER 2022-01-17 20:55:00 Vivi [facility] POCT-GLUCOSE METER 2022-01-17 18:20:00 Vivi [facility] US DRAINAGE WITH CATH 2022-01-17 17:47:00 Jagruti Hurley [facility] BODY FLUID CELL COUNT WITH 2022-01-17 17:34:00 Jagruti Hurley [facility] AMYLASE PERITONEAL FLUID 2022-01-17 17:34:00 Mei [facility] TRIGLYCERIDES, PERITONEAL 2022-01-17 17:34:00 Jagruti Hurley CH, I [facility] MISCELLANEOUS LAB ORDER 2022-01-17 17:32[facility] + GRAM 2022-01-17 17:31:00 Jagruti Hurley CH, I [facility] POCT-GLUCOSE METER 2022-01-17 11:44:00 Vivi [facility] URINE CULTURE 2022-01-17 10:01:00 Mei [facility] URINALYSIS W/ REFLEX URINE 2022-01-17 10:01:00 Jagruti Hurley [facility] CT ABDOMEN/PELVIS WITH IV 2022-01-17 09:32:00 Jagruti Hurley CH, I [facility] POCT-GLUCOSE METER 2022-01-17 08:00:00 Vivi [facility] PROTHROMBIN TIME/INR 2022-01-17 03:45:00 [facility] CBC (HEMOGRAM ONLY) 2022-01-17 03:45:00 [facility] BASIC METABOLIC PANEL 2022-01-17 03:45:00 [facility] HEPATIC FUNCTION PANEL 2022-01-17 03:45:00 [facility] MAGNESIUM 2022-01-17 03:45:00 Vivi [facility] PHOSPHORUS 2022-01-17 03:45:00 Junito [facility] SARS-COV2/RT-PCR ([facility] & 2022-01-16 23:03:00 [facility] PO[facility]-GLUCOSE METER 2022-01-16 21:53:00 Vivi [facility] POCT-GLUCOSE METER 2022-01-16 15:18:00 [facility] PO[facility]SE METER 2022-01-16 11:35:00 Vivi [facility] XR ABDOMEN/KUB 1 VIEW 2022-01-16 08:46:00 Jagruti Hurley [facility] POCT-GLUCOSE METER 2022-01-16 07:37:00 Vivi [facility] PROTHROMBIN TIME/INR 2022-01-16 04:57:00 Vivi [facility] CBC (HEMOGRAM ONLY) 2022-01-16 04:57:00 Vivi [facility] BASIC METABOLIC PANEL 2022-01-16 04:57:00 Vivi [facility] HEPATIC FUNCTION PANEL 2022-01-16 04:57:00 Vivi [facility] MAGNESIUM 2022-01-16 04:57:00 Vivi [facility] PHOSPHORUS 2022-01-16 04:57:00 Danial [facility] POCT-GLUCOSE METER 2022-01-15 21:48:00 Vivi [facility] POCT-GLUCOSE METER 2022-01-15 15:53:00 Vivi [facility] POCT-GLUCOSE METER 2022-01-15 11:39:00 Vivi [facility] POCT-GLUCOSE METER 2022-01-15 07:59:00 Vivi [facility] PROTHROMBIN TIME/INR 2022-01-15 04:00:00 Vivi [facility] CBC (HEMOGRAM ONLY) 2022-01-15 04:00:00 Vivi [facility] BASIC METABOLIC PANEL 2022-01-15 04:00:00 Vivi [facility] HEPATIC FUNCTION PANEL 2022-01-15 04:00:00 Vivi [facility] MAGNESIUM 2022-01-15 04:00:00 Vivi [facility] PHOSPHORUS 2022-01-15 04:00:00 Danial [facility] POCT-GLUCOSE METER 2022-01-14 21:26:00 Vivi, Denzel Alphonso [facility] POCT-GLUCOSE METER 2022-01-14 16:08:00 Vivi [facility] POCT-GLUCOSE METER 2022-01-14 11:48:00 Vivi [facility] URINALYSIS W/ REFLEX URINE 2022-01-14 10:43:00 Barb Loza [facility] CULTURE [facility] URINE CULTURE 2022-01-14 10:39:00 Shaye Loza [facility] POCT-GLUCOSE METER 2022-01-14 07:57:00 Vivi [facility] XR CHEST 1 VIEW PORTABLE / 2022-01-14 07:22:00 Jagruti Hurley [facility] CBC (HEMOGRAM ONLY) 2022-01-14 06:26:00 Vivi [facility] PROTHROMBIN TIME/INR 2022-01-14 06:25:00 Vivi [facility] BASIC METABOLIC PANEL 2022-01-14 06:25:00 Vivi [facility] HEPATIC FUNCTION PANEL 2022-01-14 06:25:00 Vivi [facility] MAGNESIUM 2022-01-14 06:25:00 [facility] PHOSPHORUS 2022-01-14 06:25:00 Junito [facility] POCT-GLUCOSE METER 2022-01-13 20:51:00 Vivi [facility] POCT-GLUCOSE METER 2022-01-13 17:00:00 Vivi [facility] PHOSPHORUS 2022-01-13 13:00:00 Vivi [facility] POCT-GLUCOSE METER 2022-01-13 11:12:00 Vivi [facility] POCT-GLUCOSE METER 2022-01-13 07:21:00 Vivi [facility] PHOSPHORUS 2022-01-13 07:12:00 Vivi [facility] PHOSPHORUS 2022-01-13 03:22:00 Vivi [facility] PROTHROMBIN TIME/INR 2022-01-13 03:22:00 [facility] CBC (HEMOGRAM ONLY) 2022-01-13 03:22:00 [facility] BASIC METABOLIC PANEL 2022-01-13 03:22:00 Vivi [facility] HEPATIC FUNCTION PANEL 2022-01-13 03:22:00 Vivi [facility] MAGNESIUM 2022-01-13 03:22:00 [facility] POCT-GLUCOSE METER 2022-01-12 23:48:00 [facility] PHOSPHORUS 2022-01-12 21:33:00 [facility] POCT-GLUCOSE METER 2022-01-12 21:13:00 [facility] POCT-GLUCOSE METER 2022-01-12 17:27:00 [facility] PHOSPHORUS 2022-01-12 12:17:00 [facility] POCT-GLUCOSE METER 2022-01-12 11:34:00 [facility] XR CHEST 1 VIEW PORTABLE / 2022-01-12 11:28:00 Tomas Watson [facility] POCT-GLUCOSE METER 2022-01-12 06:00:00 [facility]i [facility] PHOSPHORUS 2022-01-12 04:44:00 [facility] PROTHROMBIN TIME/INR 2022-01-12 04:44:00 [facility] CBC (HEMOGRAM ONLY) 2022-01-12 04:44:00 [facility] BASIC METABOLIC PANEL 2022-01-12 04:44:00 [facility] HEPATIC FUNCTION PANEL 2022-01-12 04:44:00 [facility] MAGNESIUM 2022-01-12 04:44:00 [facility] POCT-GLUCOSE METER 2022-01-12 04:14:00 [facility] XR CHEST 1 VIEW PORTABLE / 2022-01-11 23:00:00 [facility], [facility] PHOSPHORUS 2022-01-11 22:40:00 [facility] BASIC METABOLIC PANEL 2022-01-11 22:40:00 [facility], [facility] MAGNESIUM 2022-01-11 22:40:00 [place], [facility] POCT-GLUCOSE METER 2022-01-11 22:40:00 [facility]i [facility] POCT-GLUCOSE METER 2022-01-11 20:34:00 [facility] POCT-GLUCOSE METER 2022-01-11 16:48:00 [facility] PHOSPHORUS 2022-01-11 14:48:00 Mei [facility] POCT-GLUCOSE METER 2022-01-11 12:14:00 [facility] US ABDOMINAL WITH DOPPLER 2022-01-11 12:11:[facility] PO[facility]SE METER 2022-01-11 09:23:00 [facility] POCT-GLUCOSE METER 2022-01-11 06:14:00 [facility]i [facility] PHOSPHORUS 2022-01-11 04:55:00 Vivi [facility] APTT 2022-01-11 04:55:00 Darren Davison [facility] PROTHROMBIN TIME/INR 2022-01-11 04:55:00 Vivi [facility] CBC (HEMOGRAM ONLY) 2022-01-11 04:55:00 Vivi [facility] BASIC METABOLIC PANEL 2022-01-11 04:55:00 Vivi, [facility] HEPATIC FUNCTION PANEL 2022-01-11 04:55:00 [facility]22-01-11 04:55:00 Vivi [facility] CALCIUM, IONIZED 2022-01-11 04:55:00 Darren Davison [facility] POCT-GLUCOSE METER 2022-01-11 04:36:00 [facility] POCT-GLUCOSE METER 2022-01-11 02:12:00 [facility] POCT-GLUCOSE METER 2022-01-11 01:29:00 [facility] XR CHEST 1 VIEW PORTABLE / 2022-01-11 00:54:00 Darren Davison [facility] POCT-GLUCOSE METER 2022-01-10 23:56:00 [facility]i [facility] PHOSPHORUS 2022-01-10 23:34:00 Vivi [facility] POCT-GLUCOSE METER 2022-01-10 22:21:00 [facility] 2022-01-10 21:00:00 [facility] POCT-GLUCOSE METER 2022-01-10 20:01:00 [facility] POCT-GLUCOSE METER 2022-01-10 19:27:00 [facility]SE [facility]ER 2022-01-10 18:06:00 [facility] POCT-GLUCOSE METER 2022-01-10 17:16:00 [facility] PHOSPHORUS 2022-01-10 16:36:00 [facility] BASIC METABOLIC PANEL 2022-01-10 16:36:00 Avi Wadsworth [facility] POCT-GLUCOSE METER 2022-01-10 16:08:00 [facility] POCT-GLUCOSE METER 2022-01-10 14:29:00 [facility] POCT-GLUCOSE METER 2022-01-10 13:29:00 [facility] POCT-GLUCOSE METER 2022-01-10 12:16:00 [facility] POCT-GLUCOSE METER 2022-01-10 11:18:00 [facility] POCT-GLUCOSE METER 2022-01-10 10:08:00 [facility] POCT-GLUCOSE METER 2022-01-10 08:05:00 [facility] POCT-GLUCOSE METER 2022-01-10 06:19:00 [facility] POCT-GLUCOSE METER 2022-01-10 04:38:00 [facility] SARS-COV2/RT-PCR ([facility] & 2022-01-10 02:43:00 [facility] REF LABS) [facility] APTT 2022-01-10 02:43:00 Darren Davison [facility] PROTHROMBIN TIME/INR 2022-01-10 02:43:00 [facility] CBC (HEMOGRAM ONLY) 2022-01-10 02:43:00 [facility] BASIC METABOLIC PANEL 2022-01-10 02:43:00 [facility] HEPATIC FUNCTION PANEL 2022-01-10 02:43:00 Vivi [facility] MAGNESIUM 2022-01-10 02:43:00 [facility] PHOSPHORUS 2022-01-10 02:43:00 Darren Davison [facility] CALCIUM, IONIZED 2022-01-10 02:43:00 Darren Davison [facility] POCT-GLUCOSE METER 2022-01-10 02:07:00 [facility] POCT-GLUCOSE METER 2022-01-10 01:07:00 Denzel Trinidad [facility] XR CHEST 1 VIEW PORTABLE / 2022-01-10 01:00:00 Darren Davison [facility] POCT-GLUCOSE METER 2022-01-10 00:08:00 [facility] PREPARE LEUKO-REDUCED RBC 2022-01-09 23:55:00 Vivi [facility] PREPARE RBC 2022-01-09 23:55:00 Vivi [facility] POCT-GLUCOSE METER 2022-01-09 23:08:00 [facility]i [facility] CBC W/PLT COUNT & AUTO 2022-01-09 22:14:00 [facility] CBC W/PLT COUNT & AUTO 2022-01-09 22:14:00 Jyoti [facility] BASIC METABOLIC PANEL 2022-01-09 22:14:00 Roland Montes [facility] MAGNESIUM 2022-01-09 22:14:00 [facility] 2022-01-09 22:14:00 Jyoti [facility] HEMOGLOBIN A1C 2022-01-09 22:14:00 Jyoti [facility] POCT-GLUCOSE METER 2022-01-09 22:08:00 [facility]i [facility] XR ABDOMEN/KUB 1 VIEW 2022-01-09 20:49:00 Roland Montes [facility] PORTABLE [facility] POCT-GLUCOSE METER 2022-01-09 20:47:00 [facility] POCT-GLUCOSE METER 2022-01-09 19:24:00 [facility] POCT-GLUCOSE METER 2022-01-09 17:46:00 [facility] POCT-GLUCOSE METER 2022-01-09 16:52:00 [facility] POCT-GLUCOSE METER 2022-01-09 15:51:00 [facility] PHOSPHORUS 2022-01-09 14:50:00 [facility] POCT-[facility]SE [facility]ER 2022-01-09 14:49:00 [facility] POCT-GLUCOSE METER 2022-01-09 13:44:00 [facility] CBC W/PLT COUNT & AUTO 2022-01-09 13:26:00 [facility] (CELLAVISION MANUAL DIFF) 2022-01-09 13:26:00 [facility] PROTHROMBIN TIME/INR 2022-01-09 13:26:00 [facility] PHOSPHORUS 2022-01-09 13:26:00 [facility] HEPATIC FUNCTION PANEL 2022-01-09 13:26:00 [facility] CBC W/PLT COUNT & AUTO 2022-01-09 13:26:00 [facility] BASIC METABOLIC PANEL 2022-01-09 13:26:00 [facility] POCT-GLUCOSE METER 2022-01-09 12:54:00 [facility] POCT-GLUCOSE METER 2022-01-09 11:54:00 [facility] POCT-GLUCOSE METER 2022-01-09 10:42:00 [facility]i [facility] POCT-GLUCOSE METER 2022-01-09 09:46:00 [facility] US ABDOMINAL WITH DOPPLER 2022-01-09 09:00:00 [facility] LACTIC ACID, ARTERIAL 2022-01-09 08:08:00 Shashank Hines [facility] POCT-GLUCOSE METER 2022-01-09 08:02:00 [facility] POCT-GLUCOSE METER 2022-01-09 06:57:00 [facility] POCT-GLUCOSE METER 2022-01-09 05:55:00 [facility] LACTIC ACID, ARTERIAL 2022-01-09 03:56:00 [facility] POCT-GLUCOSE METER 2022-01-09 03:56:00 [facility]i [facility] POTASSIUM 2022-01-09 03:56:00 [facility] CBC (HEMOGRAM ONLY) 2022-01-09 02:07:00 Shakira Michelle [facility] APTT 2022-01-09 02:07:00 Darren Davison [facility] PROTHROMBIN TIME/INR 2022-01-09 02:07:00 [facility] BASIC MET[facility]OLIC PANEL 2022-01-09 02:07:00 [facility]EL 2022-01-09 02:07:00 [facility] 2022-01-09 02:07:00 [facility] 2022-01-09 02:07:00 Darren Davison [facility] BLOOD GAS, ARTERIAL 2022-01-09 02:07:00 [facility] CALCI[facility], [facility]ON[facility]ED 2022-01-09 02:07:00 Darren Davison [facility] XR CHEST 1 VIEW PORTABLE / 2022-01-09 00:59:00 Darren Davison [facility] RRL CRITICAL LABS 2022-01-08 21:29:00 [facility] ([facility],NA,K,H&H,GLUCOSE) [facility] C enter MAGNESIUM 2022-01-08 21:29:00 [facility] BLOOD GAS, ARTERIAL 2022-01-08 21:29:[address] [facility] SODIUM NA-STAT LAB 2022-01-08 21:29:[address] [facility] [facility] POTASSIUM-STAT LAB 2022-01-08 21:29:[address] [place] [facility] GLUCOSE-STAT LAB 2022-01-08 21:29:00 [facility] HGB/HCT (H&H) - STAT LAB 2022-01-08 21:29:00 [facility] PHOSPHORUS 2022-01-08 21:17:00 Noel Merritt [facility] CBC (HEMOGRAM ONLY) 2022-01-08 21:02:00 Miguel Angel Shakira [facility] POCT-GLUCOSE METER 2022-01-08 21:01:00 Denzel Trinidad [facility] CBC (HEMOGRAM ONLY) 2022-01-08 17:43:00 Shakira Michelle [facility] FIBRINOGEN 2022-01-08 17:43:00 Darren Davison [facility] LACTIC ACID, ARTERIAL 2022-01-08 17:43:00 Darren Davison C [facility] PROTHROMBIN TIME/INR 2022-01-08 17:43:00 Darren Davison CH I [facility] APTT 2022-01-08 17:43:00 Darren Davison [facility] POCT-GLUCOSE METER 2022-01-08 16:43:00 Denzel Trinidad [facility] ECG 12-LEAD 2022-01-08 15:43:16 Unknown, [facility] ECG 12-LEAD 2022-01-08 15:43:16 Unknown, [facility] ECG 12-LEAD 2022-01-08 15:43:16 Unknown, [facility] XR CHEST 1 VIEW PORTABLE / 2022-01-08 14:10:00 MeiJadynah Alessandro [facility] CBC W/PLT COUNT & AUTO 2022-01-08 14:01:00 Shakira Michelle [facility] (CELLAVISION MANUAL DIFF) 2022-01-08 14:01:00 Shakira Michelle [facility] LACTIC ACID, ARTERIAL 2022-01-08 14:01:00 Shakira Michelle [facility] CBC W/PLT COUNT & AUTO 2022-01-08 14:01:00 Shakira Michelle [facility] OXYGEN SATURATION, MEASURED 2022-01-08 14:01:00 Shakira Michelle [facility] RRL CRITICAL LABS 2022-01-08 14:01:00 Shakira Michelle [facility] (ABG,NA,K,H&H,GLUCOSE) [facility] enter CALCIUM, IONIZED 2022-01-08 14:01:00 Shakira Michelle [facility] BLOOD GAS, ARTERIAL 2022-01-08 14:01:00 Shakira Michelle [facility] SODIUM NA-STAT LAB 2022-01-08 14:01:00 Shakira Michelle [facility] POTASSIUM-STAT LAB 2022-01-08 14:01:00 Shakira Michelle [facility] GLUCOSE-STAT LAB 2022-01-08 14:01:00 [facility] HGB/HCT (H&H) - STAT LAB 2022-01-08 14:01:00 Shakira Michelle [facility] CBC (HEMOGRAM ONLY) 2022-01-08 14:01:00 Jagruti Hurley [facility] MAGNESIUM 2022-01-08 14:00:00 [facility]IC METABOLIC PANEL 2022-01-08 14:00:00 Miguel Angel [facility] PROTHROMBIN TIME/INR 2022-01-08 14:00:00 Miguel Angel [facility] APTT 2022-01-08 14:00:00 Miguel Angel [facility] FIBRINOGEN 2022-01-08 14:00:00 Daltondebhavya [facility] HEPATIC FUNCTION PANEL 2022-01-08 14:00:00 Daltondebhavya [facility] PHOSPHORUS 2022-01-08 14:00:00 Darren Davison [facility] CALCIUM, IONIZED 2022-01-08 12:12:44 [facility] 2022-01-08 12:12:44 GiovanaEstelle [facility] (ABG,NA,K,H&H,GLUCOSE) [facility] enter BLOOD GAS, ARTERIAL 2022-01-08 12:12:44 [facility] SODIUM NA-STAT LAB 2022-01-08 12:12:44 [facility] 2022-01-08 12:12:44 [facility] 2022-01-08 12:12:44 [facility]/HCT (H&H) - STAT LAB 2022-01-08 12:12:44 [facility] R[facility]IT[facility] LABS 2022-01-08 11:35:12 Carmel Jade [facility] (ABG,NA,K,H&H,GLUCOSE) Medical C enter CALCIUM, IONIZED 2022-01-08 11:35:12 Carmel Jade [facility] BLOOD GAS, ARTERIAL 2022-01-08 11:35:12 Kalie, [facility] SODIUM NA-STAT LAB 2022-01-08 11:35:12 Kalie [facility] POTASSIUM-STAT LAB 2022-01-08 11:35:12 Kalie [facility] GLUCOSE-STAT LAB 2022-01-08 11:35:12 [facility]H&H) - STAT LAB 2022-01-08 11:35:12 Kalie [facility] TRANSFUSE LEUKO-REDUCED RED 2022-01-08 11:01[facility]00 [facility] 2022-01-08 11:00:00 Denzel Trinidad [facility] TRANSFUSE LEUKO-REDUCED RED 2022-01-08 10:55:00 Kalie [facility] RRL CRITICAL LABS 2022-01-08 10:52:35 Kalie [facility] (ABG,NA,K,H&H,GLUCOSE) Medical C enter CALCIUM, IONIZED 2022-01-08 10:52:35 [facility] BLOOD GAS, ARTERIAL 2022-01-08 10:52:35 Kalie [facility] SODIUM NA-STAT LAB 2022-01-08 10:52:35 [facility] 2022-01-08 10:52:35 Kalie [facility] GLUCOSE-STAT LAB 2022-01-08 10:52:35 Kalie [facility] HGB/HCT (H&H) - STAT LAB 2022-01-08 10:52:35 Kalie [facility] RRL CRITICAL LABS 2022-01-08 10:15:32 Kalie [facility] (ABG,NA,K,H&H,GLUCOSE) Medical C enter CALCIUM, IONIZED 2022-01-08 10:15:32 Kalie [facility] BLOOD GAS, ARTERIAL 2022-01-08 10:15:32 Kalie [facility] SODIUM NA-STAT LAB 2022-01-08 10:15:32 Kalie [facility] POTASSIUM-STAT LAB 2022-01-08 10:15:32 Kalie [facility] GLUCOSE-STAT LAB 2022-01-08 10:15:32 Kalie [facility] HGB/HCT (H&H) - STAT LAB 2022-01-08 10:15:32 Kalie [facility] TRANSFUSE LEUKO-REDUCED RED 2022-01-08 09:51:00 Kalie [facility] TRANSFUSE LEUKO-REDUCED RED 2022-01-08 09:44:00 Kalie [facility] RRL CRITICAL LABS 2022-01-08 09:31:33 Kalie [facility] (ABG,NA,K,H&H,GLUCOSE) Medical C enter CALCIUM, IONIZED 2022-01-08 09:31:33 Kalie [facility] BLOOD GAS, ARTERIAL 2022-01-08 09:31:33 Kalie [facility] SODIUM NA-STAT LAB 2022-01-08 09:31:33 Kalie [facility] POTASSIUM-STAT LAB 2022-01-08 09:31:33 Kalie [facility] GLUCOSE-STAT LAB 2022-01-08 09:31:33 Kalie [facility] HGB/HCT (H&H) - STAT LAB 2022-01-08 09:31:33 Kalie [facility] RRL CRITICAL LABS 2022-01-08 08:24:45 Kalie [facility] (ABG,NA,K,H&H,GLUCOSE) Medical C enter CALCIUM, IONIZED 2022-01-08 08:24:45 Kalie [facility] BLOOD GAS, ARTERIAL 2022-01-08 08:24:45 Kalie [facility] SODIUM NA-STAT LAB 2022-01-08 08:24:45 Kalie [facility] POTASSIUM-STAT LAB 2022-01-08 08:24:45 Kalie [facility] GLUCOSE-STAT LAB 2022-01-08 08:24:45 Kalie [facility] HGB/HCT (H&H) - STAT LAB 2022-01-08 08:24:45 Kalie [facility] TYPE AND SCREEN, AUTOMATED 2022-01-08 08:22:00 Denzel Trinidad [facility] LAPAROTOMY, EXPLORATORY 2022-01-08 07:12:00 Vivi [facility] HEPATECTOMY, PARTIAL 2022-01-08 07:12:00 Vivi [facility] HERNIORRHAPHY, UMBILICAL 2022-01-08 07:12:00 [facility] POCT-GLUCOSE METER 2022-01-08 06:13:00 [facility] PELVIS WITH IV CONTRAST 2022-01-03 13:31:00 Nichole Ulloa [facility] SARS-COV2/RT-PCR ([facility] & 2022-01-03 11:59:00 [facility] W/PLT COUNT & AUTO 2021-12-31 10:37:00 Prema Guerra [facility] CBC W/PLT COUNT & AUTO 2021-12-31 10:37:00 Prema Guerra [facility] BASIC METABOLIC PANEL 2021-12-31 10:37:00 Prema Guerra [facility] HEPATIC FUNCTION PANEL 2021-12-31 10:37:[address] [facility] PREALBUMIN 2021-12-31 10:37:00 Prema Guerra [facility] URINALYSIS W/ REFLEX URINE 2021-12-31 10:37:[address] [facility] MAGNESIUM 2021-12-31 10:37:00 Prema Guerra [facility] PHOSPHORUS 2021-12-31 10:37:00 Prema Guerra [facility] PROTHROMBIN TIME/INR 2021-12-31 10:37:00 Prema Guerra [facility] NM BONE SCAN WHOLE BODY 2021-12-26 12:58:00 Denzel Trinidad [facility] CT CHEST WITHOUT IV 2021-12-26 08:02:00 Denzel Trinidad [facility] PROCEDURE, IN NON-OPERATING 2021-12-14 17:00:00 Surgeon [facility] CT BIOPSY LIVER 2021-12-14 11:45:00 Prema Guerra [facility] TISSUE EXAM 2021-12-14 11:40:00 Prema Guerra [facility] POCT-GLUCOSE METER 2021-12-14 07:54:00 Prema Guerra [facility] CBC W/PLT COUNT & AUTO 2021-12-14 07:41:00 Amber Wilkins [facility] (CELLAVISION MANUAL DIFF) 2021-12-14 07:41:00 Amber Wilkins [facility] CBC W/PLT COUNT & AUTO 2021-12-14 07:41:00 Amber Wilkins [facility] PROTHROMBIN TIME/INR 2021-12-14 07:41:00 Amber Wilkins [facility] MR ABDOMEN WITH & WITHOUT 2021-11-29 13:29:00 Nichole Ulloa [facility] IV [facility] ELECTROCARDIOGRAM COMPLETE 2021-11-21 17:25:00 Terry Shepard [facility] CBC W/PLT COUNT & AUTO 2021-11-15 11:35:00 Prema Guerra [facility] (CELLAVISION MANUAL DIFF) 2021-11-15 11:35:00 Prema Guerra [facility] CBC W/PLT COUNT & AUTO 2021-11-15 11:35:00 Prema Guerra [facility] BASIC METABOLIC PANEL 2021-11-15 11:35:00 Prema Guerra [facility] HEPATIC FUNCTION PANEL 2021-11-15 11:35:00 Prema Guerra [facility] PREALBUMIN 2021-11-15 11:35:00 Prema Guerra [facility] MAGNESIUM 2021-11-15 11:35:00 Prema Guerra [facility] PHOSPHORUS 2021-11-15 11:35:00 Prema Guerra [facility] PROTHROMBIN TIME/INR 2021-11-15 11:35:00 Prema Guerra [facility] ALPHA FETOPROTEIN (AFP), 2021-11-15 11:35:00 Prema Guerra [facility] TUMOR MARKER [facility] CARCINOEMBRYONIC ANTIGEN 2021-11-15 11:35:[address] [facility] (CEA) [facility] CARBOHYDRATE ANTIGEN 19-9 2021-11-15 11:35:[address] [facility] (CA 19-9) [facility] CANCER ANTIGEN 125 (CA 125) 2021-11-15 11:35:00 Prema Guerra [facility] URINALYSIS W/ REFLEX URINE 2021-11-15 11:33:[address] [facility] CULTURE [facility] FERRITIN 2021-10-26 20:28:00 Nichole Ulloa [facility] CBC W/AUTO DIFF WITH 2021-10-26 20:28:00 Nichole Ulloa [facility] IRON+TIBC+%SAT 2021-10-26 20:28:00 [facility] Removal of Gallbladder [facility] Plan of Care Planned Activity Planned Date Details Comments Source Future Scheduled 2024-12-20 Lipid panel (procedure) [facility] Test 00:00:00 [code = 49934392] Medical Ce nter Future Scheduled 2024-12-20 Lipid panel (procedure) [facility] Test 00:00:00 [code = 09533364] Medical Ce nter Future Scheduled 2023-12-[address] [facility] Test 00:00:00 [facility] Screening (12+) [code = Tobacco Cessation Counseling and Screening (12+)] Future Scheduled 2023-10-[address] [facility] Test 00:00:00 [facility] Screening (12+) [code = Tobacco Cessation Counseling and Screening (12+)] Future Scheduled 2022-12-03 COVID-19 VACCINE (#1) [facility] 09:[facility]05 [code = COVID-19 Hospital VACCINE (#1)] Future Scheduled 2022-12-03 Screening for malignant [facility] 09:43:05 neoplasm of cervix Hospital (procedure) [code = 211914388] Future Scheduled 2022-12-03 BREAST CANCER SCREENING [facility] 09:43:05 [code = BREAST CANCER Hospit al SCREENING] Future Scheduled 2022-12-03 COLONOSCOPY SCREENING [facility] 09:43:05 [code = COLONOSCOPY Hospital SCREENING] Future Scheduled 2022-12-03 INFLUENZA VACCINE [code [facility] 09:43:05 = INFLUENZA VACCINE] [facility] Future Scheduled 2022-10-[address] [facility] Test 00:00:00 (12+) [code = Medical Center DEPRESSION SCREENING (12+)] Future Scheduled 2022-10-[address] [facility] Test 00:00:00 (12+) [code = Medical Center DEPRESSION SCREENING (12+)] Future Scheduled 2022-10-03 Screening for malignant [facility] 13:12:05 neoplasm of cervix Hospital (procedure) [code = 273075476] Future Scheduled 2022-10-03 BREAST CANCER SCREENING [facility] 13:12:05 [code = BREAST CANCER Hospit al SCREENING] Future Scheduled 2022-10-03 COLONOSCOPY SCREENING [facility] 13:12:05 [code = COLONOSCOPY Hospital SCREENING] Future Scheduled 2022-10-03 INFLUENZA VACCINE [code [facility] 13:12:05 = INFLUENZA VACCINE] Hospita Future Scheduled 2022-10-03 COVID-19 VACCINE (#1) [facility] 13:12:05 [code = COVID-19 Hospital VACCINE (#1)] Future Scheduled 2022-10-03 Hepatitis C screening [facility] 13:12:05 (procedure) [code = Hospital 714081911] Future Scheduled 2022-06-13 INFLUENZA VACCINE (#1) [facility]00 [code = INFLUENZA Medical Ce nter VACCINE (#1)] Future Scheduled 2022-06-13 INFLUENZA VACCINE (#1) [facility] 00:00:00 [code = INFLUENZA Medical Ce nter VACCINE (#1)] Future Scheduled 2022-05-19 Screening for malignant [facility] Test 11:55:11 neoplasm of colon of Medicin e (procedure) [code = 278390666] Future Scheduled 2022-05-19 Screening for malignant [facility] Test 11:55:11 neoplasm of breast of Medici ne (procedure) [code = 162830646] Future Scheduled 2022-05-19 TETANUS SHOT (ADULT) [facility] Test 11:55:11 [code = TETANUS SHOT of Medi cine (ADULT)] Future Scheduled 2022-05-19 Diabetic foot [facility] Test 11:55:11 examination of Medicine (regime/therapy) [code = 827637817] Future Scheduled 2022-05-19 ANNUAL DIABETIC [facility] Test 11:55:11 RETINOPATHY SCREENING of Med icine [code = ANNUAL DIABETIC RETINOPATHY SCREENING] Future Scheduled 2022-05-19 BMI FOLLOW UP PLAN [facility] Test 11:55:11 [code = BMI FOLLOW UP of Med icine PLAN] Future Scheduled 2022-05-19 Human immunodeficiency [facility] Test 11:55:11 virus screening of Medicine (procedure) [code = 887264373] Future Scheduled 2022-05-19 Screening for malignant [facility] Test 11:55:11 neoplasm of cervix of Medici ne (procedure) [code = 827163397] Future Scheduled 2022-05-19 COVID-19 Vaccine (3 - Ba [facility] Test 11:55:11 Booster for Pfizer of Medici ne series) [code = COVID-19 Vaccine (3 - Booster for Pfizer series)] Future Scheduled 2022-05-19 FLU VACCINE > 6 MONTHS [facility] Test 11:55:11 [code = FLU VACCINE > 6 of M edicine MONTHS] Future Scheduled 2022-05-19 Hemoglobin A1c [facility] Test 11:55:11 measurement (procedure) of M edicine [code = 45980474] Future Scheduled 2022-05-17 CT CHEST W CONTRAST 1 Occurrences [facility] Test 12:08:03 [code = 73452-9] starting of Medicine 05/17/2022 until 05/17/2023 Future Scheduled 2021-11-24 MRI ABDOMEN W WO Expected: [facility] Test 00:00:00 CONTRAST [code = 11/24/2021, of Medicine 82856-8] Expires: 10/24/2022 Future Scheduled 2021-11-21 Screening for malignant [facility] Test 14:15:36 neoplasm of breast of Medici ne (procedure) [code = 535640401] Future Scheduled 2021-11-21 TETANUS SHOT (ADULT) [facility] Test 14:15:36 [code = TETANUS SHOT of Medi cine (ADULT)] Future Scheduled 2021-11-21 BMI FOLLOW UP PLAN [facility] Test 14:15:36 [code = BMI FOLLOW UP of Med icine PLAN] Future Scheduled 2021-11-21 Human immunodeficiency B [facility] Test 14:15:36 virus screening of Medicine (procedure) [code = 699730561] Future Scheduled 2021-11-21 Screening for malignant [facility] Test 14:15:36 neoplasm of cervix of Medici ne (procedure) [code = 544172560] Future Scheduled 2021-11-21 FLU VACCINE > 6 MONTHS B [facility] Test 14:15:36 [code = FLU VACCINE > 6 of M edicine MONTHS] Future Scheduled 2021-11-21 COVID-19 Vaccine (3 - [facility] Test 14:15:36 Booster for Pfizer of Medici ne series) [code = COVID-19 Vaccine (3 - Booster for Pfizer series)] Future Scheduled 2021-11-21 CBC W/AUTO DIFF WITH Ordered: [facility] Test 12:16:54 PLATELETS [code = 11/21/2021 of Medicin e 95306-7] Future Scheduled 2021-11-21 NT-PROBNP [code = Ordered: [facility] Test 12:16:54 50162-9] 11/21/2021 of Medicine Future Scheduled 2021-11-21 LIPID PANEL [code = Ordered: [facility] Test 12:16:54 52099-8] 11/21/2021 of Medicine Future Scheduled 2021-11-21 TSH+T4F+T3FREE [code = Ordered: [facility] Test 12:16:54 [id number]] 11/21/2021 of Medicine Future Scheduled 2021-11-21 ELECTROCARDIOGRAM [employer] Test 11:25:01 COMPLETE [code = 16441] of M edicine Diagnostic Test 2021-11-21 ECHO, COMPLETE [code = Expected: [facility] Pending 00:00:00 94055] 11/21/2021, of Medicine Expires: 05/21/2022 Future Scheduled 2021-11-[address] [facility] Test 00:00:00 measurement (procedure) [facility] [code = 27406631] Future Scheduled 2021-11-[address] [facility] Test 00:00:00 measurement (procedure) [facility] [code = 32095594] Future Scheduled 2021-10-29 Screening for malignant [facility] Test 10:06:05 neoplasm of breast of Medici ne (procedure) [code = 876257626] Future Scheduled 2021-10-29 TETANUS SHOT (ADULT) [facility] Test 10:06:05 [code = TETANUS SHOT of Medi [facility], [facility] (ADULT)] Future Scheduled 2021-10-29 BMI FOLLOW UP PLAN [facility] Test 10:06:05 [code = BMI FOLLOW UP of Med icine PLAN] Future Scheduled 2021-10-29 Human immunodeficiency B [facility] Test 10:06:05 virus screening of Medicine (procedure) [code = 564994420] Future Scheduled 2021-10-29 Screening for malignant [facility] Test 10:06:05 neoplasm of cervix of Medici ne (procedure) [code = 243016774] Future Scheduled 2021-10-29 FLU VACCINE > 6 MONTHS B [facility] Test 10:06:05 [code = FLU VACCINE > 6 of edicine MONTHS] Future Scheduled 2021-10-24 HEMOGLOBIN Ordered: [facility] Test 16:00:08 ELECTROPHORESIS [code = 10/24/2021 of M edicine NOCPT] Future Scheduled 2021-07-09 COVID-19 VACCINE (3 - [facility] Pfizer risk series) [facility] Center [code = COVID-19 VACCINE (3 - Pfizer risk series)] Future Scheduled 2021-07-09 COVID-19 VACCINE (3 - [facility] Test 00:00:00 Pfizer risk series) Medical Center [code = COVID-19 VACCINE (3 - Pfizer risk series)] Future Scheduled 1998 Screening for malignant [facility] Test 00:00:00 neoplasm of cervix Medical C enter (procedure) [code = 646953384] Future Scheduled 1998 Screening for malignant [facility] Test 00:00:00 neoplasm of cervix Medical C enter (procedure) [code = 154344189] Future Scheduled 1996-02-10 DTAP/TDAP/TD VACCINES [facility] Test 00:00:00 (1 - Tdap) [code = Medical C enter DTAP/TDAP/TD VACCINES (1 - Tdap)] Future Scheduled 1996-02-10 DTAP/TDAP/TD VACCINES [facility] Test 00:00:00 (1 - Tdap) [code = Medical C enter DTAP/TDAP/TD VACCINES (1 - Tdap)] Future Scheduled 1987 DIABETIC EYE EXAM [code [facility] Test 00:00:00 = DIABETIC EYE EXAM] Medical Center Future Scheduled [address] [facility] Test 00:[facility]:00 examination Medical Center (regime/therapy) [code = 171451140] Future Scheduled 1987 Urine screening for [facility] Test 00:00:00 protein (procedure) Medical Center [code = 837166186] Future Scheduled 1987 DIABETIC EYE EXAM [code [facility] Test 00:00:00 = DIABETIC EYE EXAM] Medical Center Future Scheduled [address] [facility] Test 00:00:00 examination Medical Center (regime/therapy) [code = 901709446] Future Scheduled 1987 Urine screening for [facility] Test 00:00:00 protein (procedure) Medical Center [code = 436419679] Future Scheduled [address] [facility] Test 00:00:00 0-64 YRS (1 - PCV) Medical C enter [code = PNEUMOCOCCAL VACCINE 0-64 YRS (1 - PCV)] Future Scheduled [address] [facility] Test 00:00:00 0-64 YRS (1 - PCV) Medical C enter [code = PNEUMOCOCCAL VACCINE 0-64 YRS (1 - PCV)] Future Scheduled 1977 CT Colonography (combo) [facility] Test 00:00:00 [code = CT Colonography [facility] (combo)] Future Scheduled 1977 Screening for malignant [facility] Test 00:00:00 neoplasm of colon Medical Ce nter (procedure) [code = 678490650] Future Scheduled 1977 Screening for malignant [facility] Test 00:00:00 neoplasm of colon Medical Ce nter (procedure) [code = 622616180] Future Scheduled 1977 Screening for malignant [facility] Test 00:00:00 neoplasm of colon Medical Ce nter (procedure) [code = 478795401] Future Scheduled 1977 Screening for malignant [facility] Test 00:00:00 neoplasm of colon Medical Ce nter (procedure) [code = 423440418] Future Scheduled 1977 Sigmoidoscopy [code = [facility] Test 00:00:00 Sigmoidoscopy] Medical Cente r Future Scheduled 1977 CT Colonography (combo) [facility] Test 00:00:00 [code = CT Colonography [facility] (combo)] Future Scheduled 1977 Screening for malignant [facility] Test 00:00:00 neoplasm of colon Medical Ce nter (procedure) [code = 871848969] Future Scheduled 1977 Screening for malignant [facility] Test 00:00:00 neoplasm of colon Medical Ce nter (procedure) [code = 858385076] Future Scheduled 1977 Screening for malignant [facility] Test 00:00:00 neoplasm of colon Medical Ce nter (procedure) [code = 195767222] Future Scheduled 1977 Screening for malignant [facility] Test 00:00:00 neoplasm of colon Medical Ce nter (procedure) [code = 451887379] Future Scheduled 1977 Sigmoidoscopy [code = [facility] Test 00:00:00 Sigmoidoscopy] Medical Cente r Encounters Start End Encounter Admission Attending Care Care Encounter Source Date/Time Date/Time Type Type Clinicians Facility Department ID 2022-10-22 Outpatient BACCAM, DI ELCAMPO ELCAMPO [id number] 97-2 El 13:45:35 [id number] [id number] 2022-09-26 Outpatient BACCAM, DI ELCAMPO ELCAMPO [id number] 97-2 El 09:54:45 [id number] [facility] [id number] [facility] 2022-09-20 Outpatient BACCAM, DI ELCAMPO ELCAMPO [id number] 97-2 El 11:15:33 [id number] [facility] [id number] [facility] 2022-09-19 Outpatient BACCAM, DI ELCAMPO ELCAMPO [id number] 97-2 El 12:58:20 [id number] [facility] [id number] [facility] 2022-07-18 Outpatient BACCAM, DI ELCAMPO ELCAMPO [id number] 97-2 El 12:57:49 [id number] [facility] [id number] [facility] 2022-07-11 Outpatient BACCAM, DI ELCAMPO ELCAMPO [id number] 97-2 El 15:26:53 [id number] [facility] [id number] [facility] 2022-06-04 Outpatient LEKARTIK HANCOCK ELCAMPO ELCAMPO [id number] 97-2 El 10:13:59 [id number] [facility] 2022-02-26 Outpatient KARTIK BORREGO ELCAMPO ELCAMPO [id number] 97-2 El 13:54:21 [id number] [facility] 2021-11-19 [facility] Surgery [id number] [facility] 14:15:47 2021-07-22 Outpatient RESENDIZ, [facility] Surgery [id number] [facility] 04:59:53 LUCY 2018-10-30 Inpatient C SPECK, III, [facility] [id number] [facility] 15:45:00 [facility] 2022-12-06 2022-12-[address] TamaraAlessandro [id number] 00:00:00 00:00:00 [facility] 2022-12-06 2022-12-[address] [facility] [id number] 00:00:00 00:00:00 [facility] 2022-12-03 2022-12-03 [facility] [id number] 10:25:24 23:59:00 Encounter [facility] 2022-12-03 2022-12-03 [facility] [id number] 08:26:00 19:22:00 Encounter [facility] 2022-12-03 2022-12-03 Surgery [facility], [facility] [id number] [facility] 10:00:00 10:15:00 Surgeon [facility] 2022-12-03 2022-12-03 Travel [facility] [id number] [facility] 00:00:00 00:00:00 [facility] 2022-12-03 2022-12-03 Documentat [facility] [id number] 00:00:00 00:00:00 [facility] 2022-12-03 2022-12-03 [facility] [id number] 00:00:00 00:00:00 [facility] 2022-12-03 2022-12-03 Orders [facility] [id number] 00:00:00 00:00:00 [facility] 2022-11-29 2022-11-29 Telephone Karlo [facility] [id number] 00:00[facility]00 00:00:00 m, [facility] 2022-11-29 2022-11-29 Abstract Karlo [facility] [id number] 00:00:00 00:00:00 m, [facility] 2022-11-28 2022-11-28 Documentwindy Rodriguez [facility] [id number] 00:00:00 00:00:00 [facility] 2022-11-19 2022-11-19 Outside [facility] [id number] 00:00:00 00:00:00 Orders [facility] 2022-11-05 2022-11-05 Alexandre Rodriguez [facility] [id number] 00:00:00 00:00:00 ion [facility] 2022-11-05 2022-11-05 Alexandre Rodriguez [facility] [id number] 00:00:00 00:00:00 ion [facility] 2022-11-01 2022-11-01 Abstract Denzel Trinidad [facility] [id number] 00:00:00 00:00:00 [facility] 2022-10-23 2022-10-23 [facility] [id number] 12:00:00 12:00:00 Encounter [facility] 2022-10-23 2022-10-23 [facility] [id number] 12:00:00 12:00:00 Encounter [facility] 2022-10-19 2022-10-19 Outpatient Andie SUBRAMANIAN [facility] [id number] [facility] 21:19:00 23:15:00 [facility] 2022-10-11 2022-10-11 Outside [facility] [id number] 00:00:00 00:00:00 Orders [facility] 2022-10-11 2022-10-11 Outside [facility] [id number] 00:00:00 00:00:00 Orders [facility] 2022-10-09 2022-10-09 Office Artemio [facility] [id number] 11:00:00 12:00:00 Visit [facility] 2022-10-09 2022-10-09 Office Artemio [facility] [id number] 11:00:00 12:00:00 Visit [facility] 2022-09-27 2022-10-08 Outpatient ARTEMIO [facility] [id number] [facility] 00:00:00 10:17:37 [facility] [employer] 2022-10-08 2022-10-08 Documentat [facility] [id number] 00:00:00 00:00:00 [facility] 2022-10-08 2022-10-08 Documentat [facility] [id number] [facility] 00:00:00 00:00:00 [facility] 2022-10-03 2022-10-03 Office [facility] [id number] 13:00:00 14:00:00 Visit [facility] 2022-10-03 2022-10-03 Office EL Nasreen [facility] [id number] 13:00:00 14:00:00 Visit [facility] 2022-10-03 2022-10-03 [facility] [id number] 00:00:00 00:00:00 Only [facility] 2022-10-03 2022-10-03 Orders Artemio [facility] [id number] 00:00:00 00:00:00 Only [facility] 2022-09-23 2022-09-23 Outpatient ARTEMIO [facility] [id number] [facility] 00:00:00 00:00:00 [facility] 2022-09-20 2022-09-20 Outpatient ID MA [facility] [id number] 12:59:00 15:28:00 [id number] Cam po [id number] [facility] 2022-09-18 2022-09-18 Outpatient ARTEMIO [facility] [id number] [place] [address] 08:35:55 09:33:32 NICHOLE Burton e of Medicin e 2022-09-18 2022-09-18 Outpatient E MERCEDES, [facility] [id number] [address] [place] [address] 00:34:00 01:40:00 SONAL Medica [facility] 2022-08-30 2022-08-30 Outpatient ARTEMIO, [facility] [id number] SLE 11:01:09 23:59:00 [facility] 2022-08-30 2022-08-30 [facility], [facility] [id number] 11:01:09 23:59:00 Encounter [facility] 2022-08-30 2022-08-30 [facility], [facility] [id number] 11:01:09 23:59:00 Encounter [facility] 2022-08-30 2022-08-30 [facility], [facility] [id number] 13:30:00 13:30:00 Encounter [facility] 2022-08-30 2022-08-30 [facility], [facility] [id number] 13:30:00 13:30:00 Encounter [facility] 2022-08-30 2022-08-30 [facility] [id number] SLE 11:00:41 11:00:41 [facility] 2022-08-30 2022-08-30 [facility], [facility] [id number] 11:00:41 11:00:41 Encounter [facility] 2022-08-30 2022-08-30 [facility] [id number] 11:00:41 11:00:41 Encounter [facility] 2022-08-30 2022-08-30 Outpatient ARTEMIO [facility] [id number] SLE 10:28:16 10:59:00 [facility] 2022-08-30 2022-08-30 [facility], [facility] [id number] 10:28:16 10:59:00 Encounter [facility] 2022-08-30 2022-08-30 [facility] [id number] 10:28:16 10:59:00 Encounter [facility] 2022-08-07 2022-08-07 Outside [facility] [id number] 00:00:00 00:00:00 Orders [facility] 2022-08-07 2022-08-07 Outside [facility] [id number] 00:00:00 00:00:00 Orders [facility] 2022-07-19 2022-07-19 Outpatient Donna COTTONDI [facility] [id number] El 12:58:00 12:58:00 [id number] Cam po [id number] [facility] 2022-07-12 2022-07-12 Outpatient Donna COTTONDI [facility] [id number] El 15:29:00 15:29:00 [id number] Cam po [id number] [facility] 2022-06-04 2022-06-04 Outpatient RASHAUN PEREZANTHA NUIVA [id number] El 10:12:00 11:10:00 [id number] [facility] Lindsay [facility] 2022-05-23 2022-05-23 Outpatient [facility] SLE [id number] SLE 14:21:04 23:59:00 [facility] 2022-05-23 2022-05-23 [facility] [id number] 14:21:04 23:59:00 Encounter [facility] 2022-05-23 2022-05-23 [facility] [id number] 14:21:04 23:59:00 Encounter [facility] 2022-05-17 2022-05-17 Office ARTEMIO [facility] [id number] [facility] 11:21:43 12:59:51 Visit NICHOLE Skelton [id number] Co oscar [id number] of [id number] [facility] 504 e 2022-05-17 2022-05-17 Outside [facility] [id number] 00:00:00 00:00:00 Orders [facility] 2022-05-17 2022-05-17 Outside [facility] [id number] 00:00:00 00:00:00 Orders [facility] 2022-05-02 2022-05-02 Outpatient DENZEL VILLANUEVA [facility] [id number] [facility] 15:10:36 23:59:00 2022-05-02 2022-05-02 [facility] Denzel Trinidad [facility] [id number] 14:42:03 23:59:00 Encounter [facility] 2022-05-02 2022-05-02 [facility] Denzel Trinidad [facility] [id number] 14:42:03 23:59:00 Encounter [facility] 2022-05-02 2022-05-02 [facility] Denzel Trinidad [facility] [id number] [facility] 10:45:00 11:00:00 Visit Klaudia Barrera [facility] 2022-05-02 2022-05-02 Office Denzel Trinidad [facility] [id number] [facility] 10:45:00 11:00:00 Visit Klaudia Barrera [facility] 2022-05-02 2022-05-02 Outpatient KLAUDIA CARSON [facility] SLE [id number] SLE 10:41:28 10:41:28 2022-05-02 2022-05-02 Orders Artemio [facility] [id number] [facility] 00:00:00 00:00:00 Only [facility] 2022-05-02 2022-05-02 Outside Denzel Trinidad [facility] [id number] 00:00:00 00:00:00 Orders [facility] 2022-05-02 2022-05-02 Orders Artemio [facility] [id number] 00:00:00 00:00:00 Only Prema [facility] 2022-05-02 2022-05-02 Outside Denzel Trinidad [facility] [id number] 00:00:00 00:00:00 Orders [facility] 2022-04-18 2022-04-18 Outpatient EL [facility] [id number] [facility] 00:00:00 00:00:00 2022-04-08 2022-04-08 Outpatient EL [facility] [id number] [facility] 00:00:00 00:00:00 2022-03-18 2022-03-18 Outpatient NAIN ANDERSON [facility] [id number] 12:58:00 13:49:00 [id number] Cam [facility] 2022-03-18 2022-03-18 Outpatient EL [facility] SLE [id number] [facility] 00:00:00 00:00:00 2022-02-26 2022-02-26 Outpatient Donna DI COTTON [facility] [id number] 13:54:00 17:03:00 [id number] Cam po [id number] [facility] 2022-02-15 2022-02-15 Outpatient RENETTA ULLOA [facility] [id number] [facility] 10:55:27 11:20:44 NICHOLE randolph of Medicin e 2022-02-13 2022-02-13 Outpatient DENZEL VILLANUEVA [facility] SLE [id number] SLE 00:00:00 00:00:00 2022-02-07 2022-02-08 Emergency ER TONY, [facility] Emergency [id number] SLE 21:33:00 03:53:00 ISMAEL 2022-02-07 2022-02-08 Emergency Beatris Ho [facility] [id number] 21:33:00 03:53:00 [facility] 2022-02-07 2022-02-08 Emergency ER Beatris Ho [facility] [id number] 21:33:00 03:53:00 Ismael Jimenez [facility] 2022-02-07 2022-02-07 [facility] [id number] El 15:53:00 16:45:00 [id number] [facility] 2022-02-07 2022-02-07 Office Denzel Trinidad [facility] [id number] 10:00:00 10:30:00 Visit [facility] 2022-02-07 2022-02-07 Office Denzel Villanueva [facility] [id number] 10:00:00 10:30:00 Visit [facility] 2022-02-07 2022-02-07 Outpatient TRINO TRINIDAD [facility] SLE [id number] SLE 10:23:51 10:23:51 2022-02-07 2022-02-07 Travel [facility] [id number] [facility] 00:00:00 00:00:00 [facility] 2022-02-07 2022-02-07 Telephone Artemio [facility] [id number] 00:00:00 00:00:00 [facility] 2022-02-07 2022-02-07 Travel [facility] [id number] [facility] 00:00:00 00:00:00 [facility] 2022-02-07 2022-02-07 Telephone Artemio [facility] [id number] 00:00:00 00:00:00 [facility] 2022-02-06 2022-02-06 Emergency Filippo [facility] [id number] 03:12:00 04:25:00 [facility] 2022-02-06 2022-02-06 Emergency ER SEGUNDO, [facility] Emergency [id number] SLS 03:12:00 04:25:00 [facility] 2022-02-06 2022-02-06 Emergency ER Filippo, [facility] [id number] 03:12:00 04:25:00 [facility] 2022-02-06 2022-02-06 Telephone Dami [facility] [id number] 00:00:00 00:00:00 [facility] 2022-02-06 2022-02-06 [facility] [id number] 00:00:00 00:00:00 [facility] 2022-02-04 2022-02-04 [facility] [id number] 00:00:00 00:00:00 [facility] 2022-02-04 2022-02-04 [facility] [id number] 00:00:00 00:00:00 [facility] 2022-01-30 2022-01-30 Outpatient DENZEL VILLANUEVA [facility] [id number] SLE 10:09:21 23:59:00 2022-01-30 2022-01-30 [facility] [id number] 10:09:21 23:59:00 Encounter [facility] 2022-01-30 2022-01-30 [facility] [id number] 10:09:21 23:59:00 Encounter [facility] 2022-01-28 2022-01-28 Office Denezl Trinidad [facility] [id number] [facility] 09:30:00 10:00:00 Visit Klaudia Barrera [facility] 2022-01-28 2022-01-28 Office Denzel Villanueva [facility] [id number] [facility] 09:30:00 10:00:00 Visit Klaudia Barrera [facility] 2022-01-28 2022-01-28 Outpatient KLAUDIA ACRSON [id number] SLE 09:46:15 09:46:15 2022-01-08 2022-01-23 Inpatient DENZEL TRINIDAD [facility] Surgery [id number] SLE 05:48:00 11:33:00 2022-01-08 2022-01-23 [facility] Denzel Trinidad [facility] [id number] 05:48:00 11:33:00 Encounter [facility] 2022-01-08 2022-01-23 [facility] Vivi [facility] [id number] 05:48:00 11:33:00 Encounter [facility] 2022-01-23 2022-01-23 Telephone Dami [facility] [id number] [facility] 00:00:00 00:00:00 [facility] 2022-01-23 2022-01-23 Telephone Dami [facility] [id number] [facility] 00:00[facility]00 00:00:00 [facility] 2022-01-08 2022-01-08 [id number] [facility] 05:48:00 23:59:00 [facility] 2022-01-08 2022-01-08 Anesthesia Carmel Jade [facility] [id number] [facility] 07:11:00 13:52:00 Event [facility] 2022-01-08 2022-01-08 Anesthesia Carmel Jade [facility] [id number] [facility] 07:11:00 13:52:00 Event Juan Biju [facility] 2022-01-08 2022-01-08 [facility] [id number] [facility] 07:30:00 13:15:00 [facility] 2022-01-08 2022-01-08 [facility] Vivi [facility] [id number] 07:30:00 13:15:00 [facility] [place] 2022-01-08 2022-01-08 Outpatient [facility] [id number] [facility] 00:00:00 05:47:00 [facility] 2022-01-08 2022-01-08 Orders [facility] [id number] 00:00:00 00:00:00 Only [facility] 2022-01-08 2022-01-08 Orders [facility] [id number] 00:00:00 00:00:00 [facility] 2022-01-07 2022-01-07 Outpatient EL [facility] [id number] [facility] 09:57:07 23:59:00 2022-01-07 2022-01-07 [facility] [id number] 09:05:00 23:59:00 Encounter [facility] [place] 2022-01-07 2022-01-07 [facility] [id number] 09:05:00 23:59:00 [facility] 2022-01-07 2022-01-07 Orders Artemio [facility] [id number] 00:00:00 00:00:00 Only [facility] 2022-01-07 2022-01-07 Telephone Dami [facility] [id number] 00:00:00 00:00:00 [facility] 2022-01-07 2022-01-07 Travel [facility] [id number] [facility] 00:[facility]00 00:00:00 [facility] 2022-01-07 2022-01-07 Orders Artemio [facility] [id number] 00:00:00 00:00:00 Only [facility] 2022-01-07 2022-01-07 Telephone Dami [facility] [id number] 00:00:00 00:00:00 [facility] 2022-01-07 2022-01-07 Travel [facility] [id number] [facility] 00:[facility]00 00:00:00 [facility] 2022-01-04 2022-01-04 Telephone Dami [facility] [id number] 00:00:00 00:00:00 [facility] 2022-01-04 2022-01-04 Telephone Dami [facility] [id number] 00:00:00 00:00:00 [facility] 2022-01-03 2022-01-03 Outpatient [facility] [id number] SLE 12:41:02 23:59:00 [facility] 2022-01-03 2022-01-03 [facility] [id number] 12:30:00 23:59:00 [facility] 1[facility] Room [facility] 2022-01-03 2022-01-03 [facility] [id number] 12:30:00 23:59:00 Encounter 1, [facility] Room [facility] 2022-01-03 2022-01-03 Outpatient [facility] [id number] SLE 11:50:57 11:50:57 2022-01-03 2022-01-03 Clinical Denzel Trinidad [facility] [id number] 11:30:00 11:45:00 Support Js [facility] 2022-01-03 2022-01-03 Clinical Denzel Trinidad [facility] [id number] 11:30:00 11:45:00 Support Js [facility] 2022-01-03 2022-01-03 Tumor Artemio [facility] [id number] 00:00:00 00:00:[address] [facility] 2022-01-03 2022-01-03 Tumor Artemio [facility] [id number] 00:00:00 00:00:[address] [facility] 2022-01-01 2022-01-01 Telephone Artemio [facility] [id number] 00:00:00 00:00:00 [facility] 2022-01-01 2022-01-01 Telephone Artemio [facility] [id number] 00:00:00 00:00:00 [facility] 2021-12-31 2021-12-31 Orders Prema Guerra [facility] [id number] 10:30:00 10:45:00 [facility] 2021-12-31 2021-12-31 Orders Prema Coon [facility] [id number] 10:30:00 10:45:00 Only [facility] 2021-12-31 2021-12-31 Outpatient EL SLEH SLEH [id number] [facility] 10:19:46 10:19:46 2021-12-31 2021-12-31 Outpatient EL [facility] [id number] [facility] 00:00:00 00:00:00 2021-12-31 2021-12-31 Outpatient EL [facility] [id number] [facility] 00:00:00 00:00:00 2021-12-31 2021-12-31 Outpatient EL [facility] [id number] [facility] 00:00:00 00:00:00 2021-12-31 2021-12-31 Alexandre Lomax [facility] [id number] 00:00:00 00:00:00 [facility] 2021-12-31 2021-12-31 Alexandre Lomax [facility] [id number] 00:00:00 00:00:00 [facility] 2021-12-30 2021-12-30 Telephone Saeed [facility] [id number] 00:00:00 00:00:00 [facility] 2021-12-30 2021-12-30 Telephone Saeed [facility] [id number] 00:00:00 00:00:00 [facility] 2021-12-28 2021-12-28 Outpatient RENETTA COFFEY [facility] [id number] [facility] 09:33:57 11:51:07 AMEYA Pettitjoelle [facility] Medicin [facility] 2021-12-28 2021-12-28 Outpatient [facility] [id number] [facility] 09:09:35 11:32:57 [facility] 2021-12-27 2021-12-27 Telephone Dami [facility] [id number] 00:00:00 00:00:00 [facility] 2021-12-27 2021-12-27 Documentat Dami [facility] [id number] 00:00:00 00:00:00 [facility] 2021-12-27 2021-12-27 Telephone Dami [facility] [id number] 00:00:00 00:00:00 [facility] 2021-12-27 2021-12-27 Documentat Dami [facility] [id number] 00:00:00 00:00:00 [facility] 2021-12-26 2021-12-26 Outpatient [facility] DENZEL [facility] SLE [id number] SLE 08:33:27 23:59:00 2021-12-26 2021-12-26 [facility] [id number] 08:33:27 23:59:00 Encounter [facility] 2021-12-26 2021-12-26 [facility] [id number] 08:33:27 23:59:00 Encounter [facility] 2021-12-26 2021-12-26 [facility] [id number] 08:33:07 23:59:00 Encounter [facility] 2021-12-26 2021-12-26 [facility] [id number] 08:33:07 23:59:00 Encounter [facility] 2021-12-26 2021-12-26 Outpatient DENZEL VILLANUEVA [facility] [id number] SLE 08:33:06 23:59:00 2021-12-26 2021-12-26 Outpatient [facility] [id number] SLEH 07:34:31 08:32:00 2021-12-26 2021-12-26 [facility] [id number] 07:34:31 08:32:00 Encounter [facility] 2021-12-26 2021-12-26 [facility] [id number] 07:34:31 08:32:00 Encounter [facility] 2021-12-21 2021-12-21 Outpatient RENETTA ULLOA [facility] [id number] [facility] 11:15:49 11:35:11 NICHOLE Damon Medicin e 2021-12-19 2021-12-19 [facility] [id number] 00:00:00 00:00:00 Only [facility] 2021-12-19 2021-12-19 [facility] [id number] 00:00:00 00:00:00 Only [facility] 2021-12-14 2021-12-14 Outpatient TRINO PICKETTSON [facility] [id number] SLE 09:38:44 23:59:00 PREMA 2021-12-14 2021-12-14 [facility] Prema Guerra [facility] [id number] 09:00:00 23:59:00 [facility]14 2021-12-14 [facility] Prema Guerra [facility] [id number] 09:00:00 23:59:00 Encounter [facility] 2021-12-14 2021-12-14 Outpatient TRINO PICKETTBENJAMIN [facility] Surgery [id number] SLE 07:22:00 16:05:00 PREMA 2021-12-14 2021-12-14 Hospital Prema Guerra [facility] [id number] 07:22:00 16:05:00 Encounter Vivi [facility] 2021-12-14 2021-12-14 [facility] Prema Guerra [facility] [id number] 07:22:00 16:05:00 Encounter Vivi [facility] 2021-12-14 2021-12-14 Surgery [facility], [facility] [id number] 09:00:00 09:30:00 [facility] 2021-12-14 2021-12-14 Surgery [facility], [facility] [id number] 09:00:00 09:30:00 [facility] 2021-12-14 2021-12-14 Outside Ovi [facility] [id number] 00:00:00 00:00:00 Orders [facility] 2021-12-14 2021-12-14 Travel [facility] [id number] [facility] 00:00:00 00:00:00 [facility] 2021-12-14 2021-12-14 Outside Ovi [facility] [id number] 00:00:00 00:00:00 Orders [facility] 2021-12-14 2021-12-14 Travel [facility] [id number] [facility] 00:00[facility]00 00:00:00 [facility] 2021-12-10 2021-12-10 Office Denzel Trinidad [facility] [id number] [facility] 09:30:00 10:00:00 Visit Denia [facility] 2021-12-10 2021-12-10 Office Denzel Trinidad [facility] [id number] [facility] 09:30:00 10:00:00 Visit Denia [facility] 2021-12-10 2021-12-10 Outpatient RAJENDRA DUVALL [facility] [id number] [facility] 09:46:18 09:46:18 SHAYE 2021-12-07 2021-12-07 Outpatient ARTEMIO [facility] [id number] [facility] 11:57:29 12:17:35 [facility] 2021-12-06 2021-12-06 Outpatient [facility] [id number] [facility] 10:17:42 11:13:44 [facility] 2021-12-06 2021-12-06 Telephone Artemio [facility] [id number] 00:00:00 00:00:00 Prema [facility] 2021-12-06 2021-12-06 Documentat Michael [facility] [id number] 00:00:00 00:00:00 ion [facility] 2021-11-29 2021-11-29 [facility] [id number] [facility] 12:31:01 23:59:00 CIERAIL 2021-11-29 2021-11-29 [facility] Artemio [facility] [id number] 12:31:01 23:59:00 Encounter 3, [facility] Nafisa [facility] 2021-11-26 2021-11-26 Abstract Bran [facility] [id number] 00:00:00 00:00:00 [facility] 2021-11-21 2021-11-21 Office Plana [facility] [id number] [facility] 11:20:00 13:44:35 Visit Terry Hercules AMBULATOR [id number] [facility] [id number] of [id number] Medi daria 375 e 2021-11-21 2021-11-21 Outpatient [facility] [id number] [facility] 12:56:58 12:56:58 [facility] 2021-11-21 2021-11-21 Telephone Dami [facility] [id number] 00:00:00 00:00:00 [facility] 2021-11-20 2021-11-20 Outpatient RENETTA CHARLTON [facility] [id number] [facility] 12:39:19 13:04:04 LIZZ flanagan of Medicin e 2021-11-16 2021-11-16 Orders Dami [facility] [id number] 00:00:00 00:00:00 Only [facility] 2021-11-15 2021-11-15 Office Denzel Villanueva [facility] [id number] 10:00:00 10:30:00 Visit [facility] 2021-11-15 2021-11-15 Outpatient DENZEL VILLANUEVA [facility] [id number] SLE 10:08:36 10:08:36 2021-11-12 2021-11-12 Outpatient TRINO [facility] SLE [id number] [facility] 00:00:00 00:00:00 2021-11-07 2021-11-07 Telephone Dami [facility] [id number] 00:00:00 00:00:00 [facility] 2021-11-07 2021-11-07 Orders Artemio [facility] [id number] 00:00:00 00:00:00 Only [facility] 2021-11-01 2021-11-01 Tumor Artemio [facility] [id number] 00:00:00 00:00:[address] [facility] 2021-11-01 2021-11-01 Alexandre Rodriguez [facility] [id number] 00:00:00 00:00:00 ion [facility] 2021-11-01 2021-11-01 Alexandre Rodriguez [facility] [id number] 00:00:00 00:00:00 ion [facility] 2021-10-31 2021-10-31 Outside Artemio [facility] [id number] 00:00:00 00:00:00 Orders [facility] 2021-10-24 2021-10-24 Office ARTEMIO [facility] [id number] [facility] 14:54:03 16:33:14 Visit NICHOLE Skelton [id number] Co oscar [id number] of [id number] [facility] 504 e 2021-09-20 2021-09-20 Outpatient DENZEL VILLANUEVA [facility] Surgery [id number] [facility] 08:28:00 18:42:00 2021-09-20 2021-09-20 Outpatient DENZEL VILLANUEVA SLE [id number] [facility] 15:29:50 15:29:50 2021-09-20 2021-09-20 Outpatient RAJENDRA COON SLE [id number] [facility] 13:56:55 13:56:55 PREMA 2021-09-19 2021-09-19 Outpatient [facility] SLE [id number] SLEH 15:07:38 23:59:00 2021-08-28 2021-08-28 Outpatient DENZEL VILLANUEVA [facility] SLE [id number] SLE[facility] 16:27:18 23:59:00 2021-08-28 2021-08-28 Outpatient SLE SLE [id number] [facility]H 16:19:59 16:19:59 2021-08-08 2021-08-08 Outpatient DENZEL VILLANUEVA [facility] SLE [id number] [facility] 00:00:00 00:00:00 2021-08-08 2021-08-08 Outpatient EL SLE SLE [id number] [facility] 00:00:00 00:00:00 2021-07-17 2021-07-17 Outpatient SHIMEK_DOMINIC SALDANA [facility] [id number] [place] 09:52:00 09:52:00 _ANN [address] [facility] [facility] 2021-05-14 2021-05-14 [id number] [facility] 00:00:00 00:00:00 2021-04-30 2021-04-30 Outpatient SHIMEK_DOMINIC SALDANA O[facility]OP 958 [place] 04:38:00 04:38:00 _ANN 0719 [facility] 2021-04-30 2021-04-30 Johnny [place]ear[place] - [id number] [place] 00:00:00 00:00:00 MD: Milly Foster 718 [facility] [address], [facility] [address] , Ph. 2021-04-29 2021-04-29 Outpatient [place]OLINA [place] [id number] [place] 12:46:00 12:46:00 0718 [facility] 2021-04-24 2021-04-24 [place] - [id number] [place] 00:00:00 00:00:00 MD: Milly Foster 07 [facility] [address], [facility] [address] , Ph. 2021-03-30 2021-03-30 Outpatient Daniel MOLINA G [id number] [place] 05:13:00 05:13:00 18 [facility] 2021-02-26 2021-02-26 Outpatient [facility] SLE [id number] SLE 00:00:00 00:00:00 2020-01-14 2020-01-14 Emergency Andie CARLI MARINA FB FB [id number] [facility] 08:51:00 12:34:00 2019-10-30 2019-10-31 Emergency [facility] [id number] [place] [address] 00:00:00 00:00:00 BECCA Champagne Method i 2019-10-28 2019-10-28 Outpatient TIMA WYMAN [facility] [id number] Radha 11:58:00 13:36:00 Medica l [facility] 2018-12-15 2018-12-15 Outpatient Alessandro WILDER III, C [facility] [id number] [facility] 10:37:00 23:59:00 YAAKOV [facility] 2018-11-17 2018-11-17 Outpatient Alessandro WILDER III, [facility] [id number] [facility] 10:59:00 23:59:00 YAAKOV [facility] 2018-11-10 2018-11-10 Outpatient C FAROOQ, [facility] [id number] [facility] 09:39:00 23:59:00 PEPPER [facility]ica [facility] 2018-11-02 2018-11-02 Emergency E ARTEMIO, [facility] [id number] [facility] 12:49:00 15:49:00 DOMINIC [facility] Results Test Description Test Time Test Comments Results Result [facility] e Comments [facility], 2022-12-06 REFERRING : EMBOLIZATION, 10:10:00 ABBAS EBENEZER EXTENSIVE - [facility] ARTERIAL RANAComments:[place] [facility] for CENTERName: Gallo RÍOS for DAREN MCLEAN : Exam:->Hepatoce 1975 Sex: llular F carcinoma FINAL REPORT PROCEDURE: Hepatic transarterial chemoembolization - Drug-eluting beads Procedural PersonnelAttending physician(s): Dante Neff,Fellow physician(s): Sammy Brewer M.D.Resident physician(s): NoneAdvanced practice provider(s): None Pre-procedure diagnosis: Hepatocellular carcinomaPost-procedure diagnosis: SameIndication: Locoregional therapy for tumor controlAdditional clinical history: None Complications: No immediate complications. IMPRESSION: Hepatic angiography demonstrates a hypervascular tumor blush along the superior resection margin supplied by a branch arising from the left hepatic artery with successful transarterial delivery of doxorubicin drug-eluting beads. Plan: Recommend follow-up CT/MRI of the abdomen liver mass protocol in \\R\\4 months to assess treatment response. ___ PROCEDURE SUMMARY:- Arterial access with ultrasound guidance- Aortography: Not performed- Visceral angiography: Celiac angiography- Selective hepatic angiography: Common hepatic angiography- Superselective hepatic angiography: Performed as described below- Embolization and post-embolization angiography as described below- Additional procedure(s): None PROCEDURE DETAILS: Pre-procedureConsent: Informed consent for the procedure including risks, benefits and alternatives was obtained and time-out was performed prior to the procedure.Preparation: The site was prepared and draped using maximal sterile barrier technique including cutaneous antisepsis. Anesthesia/sedationLeve l of anesthesia/sedation: Moderate sedation (conscious sedation)Anesthesia/sed ation administered by: Independent trained observer under attending supervision with continuous monitoring of the patient\\X2019\\s level of consciousness and physiologic statusTotal intra-service sedation time (minutes): 60 AccessLocal anesthesia was administered. The vessel was sonographically evaluated and judged to be patent. Real time ultrasound was used to visualize needle entry into the vessel and a permanent image was stored. A 5 British sheath was placed.Vessel accessed: Right common femoral arteryAccess technique: Micropuncture set with 21 gauge needle Selective angiographyThe hepatic arterial system was catheterized using 2.8 British ProGreat microcatheter. The catheter was advanced to the level of the common hepatic artery and angiography was performed demonstrating a moderately hypervascular tumor arising from small branch off the left hepatic artery, likely segment 4. Selective angiography was performed of segments 2 and 3 to evaluate for additional tumor supply prior to embolization. The small branch supplying the tumor was then subselected and final angiography was performed determining good position for embolization. Chemotherapeutic agent: Doxorubicin 75 mg dispensed in 5 mL, which was mixed with 15 mL of contrast. Total chemotherapy dose administered was approximately 50% of total volume. ClosureAccess site angiography performed: YesFindings: Patent vessel with appropriate access levelArterial closure technique: MynxHemostasis achieved from closure technique: YesDuration of manual compression (minutes): 3 ContrastContrast agent: Isovue 370Contrast volume (mL): 100 Radiation DoseFluoroscopy time (minutes): 22.2 Reference air kerma (mGy): 2023 Kerma area product (uGy-cm2): 63053.8 Additional DetailsAdditional description of procedure: NoneEquipment details: NoneSpecimens removed: NoneEstimated blood loss (mL): Less than 10Standardized report: [email or web address] AttestationSigner name: Dante Grijalva attest that I was present for the entire procedure. I reviewed the stored images and agree with the report as written. Signed: Dante Neff MDReport Verified Date/Time: 12/06/2022 10:10:55 Reading Location: [place] [address] Angio Body Reading Room REHENSIVE METABOLIC PANEL 2022-12-03 12:48:38 Test Item Value Reference Range Interpretation Comme nts TOTAL PROTEIN (BEAKER) 8.1 gm/dL 6.0-8.3 (test code = 770) ALBUMIN (BEAKER) (test 3.7 g/dL 3.5-5.0 code = 1145) ALKALINE PHOSPHATASE 158 U/L 40-150 H (BEAKER) (test code = 346) BILIRUBIN TOTAL (BEAKER) 1.7 mg/dL 0.2-1.2 H (test code = 377) SODIUM (BEAKER) (test 138 meq/L 136-145 code = 381) POTASSIUM (BEAKER) (test 3.7 meq/L 3.5-5.1 code = 379) CHLORIDE (BEAKER) (test 103 meq/L 98-107 code = 382) CO2 (BEAKER) (test code 24 meq/L 22-29 = 355) BLOOD UREA NITROGEN 15 mg/dL 7-21 (BEAKER) (test code = 354) CREATININE (BEAKER) 0.95 mg/dL 0.57-1.25 (test code = 358) GLUCOSE RANDOM (BEAKER) 106 mg/dL 70-105 H (test code = 652) CALCIUM (BEAKER) (test 9.4 mg/dL 8.4-10.2 code = 697) AST (SGOT) (BEAKER) 47 U/L 5-34 H (test code = 353) ALT (SGPT) (BEAKER) 23 U/L 6-55 (test code = 347) EGFR (BEAKER) (test code 75 mL/min/1.73 sq Interpretation of eGFR values = 1092) m Stage Descripti on Result G1 Normal or high >=90 G2 Mildly decreased 60-89 G3a Mildly to moderately 45-5 9 G3b Moderately to severely 30- 44 G4 Severly decreased 15-29 G5 Kidney failure <15Repo rted eGFR is based on the CK D-EPI 2020 equation that d oes not use a race coefficien tEstimated GFR is not as accurate as Creatinine Clearance in pr edicting glomerular filt ration rate. Estimated GFR i s not applicable for dialysis tono fleming Manager Web Application ID - MARCOHEPATIC FUNCTION [id number] 10:51:37 Test Item Value Reference Range Interpretation Comments TOTAL PROTEIN (BEAKER) (test code = 8.1 gm/dL 6.0-8.3 770) ALBUMIN (BEAKER) (test code = 1145) 3.6 g/dL 3.5-5.0 BILIRUBIN TOTAL (BEAKER) (test code 1.7 mg/dL 0.2-1.2 H = 377) BILIRUBIN DIRECT (BEAKER) (test 1.2 mg/dL 0.1-0.5 H code = 706) ALKALINE PHOSPHATASE (BEAKER) (test 159 U/L 40-150 H code = 346) AST (SGOT) (BEAKER) (test code = 45 U/L 5-34 H 353) ALT (SGPT) (BEAKER) (test code = 22 U/L 6-55 347) Manager Web Application ID - MARCOPROTHROMBIN [id number] 10:38:53 Test Item Value Reference Range Interpretation Comments PROTIME (BEAKER) (test code = 13.5 seconds 11.9-14.2 759) INR (BEAKER) (test code = 370) 1.05 <=5.90 RECOMMENDED COUMADIN/WARFARIN INR THERAPY RANGESSTANDARD DOSE: 2.0 - 3.0 Includes: PROPHYLAXIS for venous thrombosis, systemic embolization; TREATMENT for venous thrombosis and/or pulmonary embolus.HIGH RISK: Target INR is 2.5-3.5 for patients with mechanical heart valves.CBC W/PLT COUNT & AUTO [id number] 10:36:53 Test Item Value Reference Range Interpretation Comments WHITE BLOOD CELL COUNT (BEAKER) 7.3 K/ L 3.5-10.5 (test code = 775) RED BLOOD CELL COUNT (BEAKER) 4.21 M/ L 3.93-5.22 (test code = 761) HEMOGLOBIN (BEAKER) (test code = 10.8 GM/DL 11.2-15.7 L 410) HEMATOCRIT (BEAKER) (test code = 35.3 % 34.1-44.9 411) MEAN CORPUSCULAR VOLUME (BEAKER) 84 fL 79-95 (test code = 753) MEAN CORPUSCULAR HEMOGLOBIN 25.7 pg 25.6-32.2 (BEAKER) (test code = 751) MEAN CORPUSCULAR HEMOGLOBIN CONC 30.6 GM/DL 32.2-35.5 L (BEAKER) (test code = 752) RED CELL DISTRIBUTION WIDTH 17.5 % 11.7-14.4 H (BEAKER) (test code = 412) PLATELET COUNT (BEAKER) (test 338 K/CU MM 150-450 code = 756) MEAN PLATELET VOLUME (BEAKER) 8.9 fL 9.4-12.3 L (test code = 754) NUCLEATED RED BLOOD CELLS 0 /100 WBC 0-0 (BEAKER) (test code = 413) NEUTROPHILS RELATIVE PERCENT 59 % (BEAKER) (test code = 429) LYMPHOCYTES RELATIVE PERCENT 29 % (BEAKER) (test code = 430) MONOCYTES RELATIVE PERCENT 9 % (BEAKER) (test code = 431) EOSINOPHILS RELATIVE PERCENT 3 % (BEAKER) (test code = 432) BASOPHILS RELATIVE PERCENT 1 % (BEAKER) (test code = 437) NEUTROPHILS ABSOLUTE COUNT 4.30 K/ L 1.56-6.13 (BEAKER) (test code = 670) LYMPHOCYTES ABSOLUTE COUNT 2.11 K/ L 1.18-3.74 (BEAKER) (test code = 414) MONOCYTES ABSOLUTE COUNT (BEAKER) 0.62 K/ L 0.24-0.36 H (test code = 415) EOSINOPHILS ABSOLUTE COUNT 0.22 K/ L 0.04-0.36 (BEAKER) (test code = 416) BASOPHILS ABSOLUTE COUNT (BEAKER) 0.04 K/ L 0.01-0.08 (test code = 417) IMMATURE GRANULOCYTES-RELATIVE 0.50 % 0.00-1.00 PERCENT (BEAKER) (test code = 2801) POCT , [id number] 10:15:00 Test Item Value Reference Range Interpretation Comments Test Urine, POC (test Negative code = 7530894) Control line present?, POC (test Yes code = 3075609) Background clear?, POC (test code Yes = 7267515) UPT Cassette Lot #, POC (test code 2001875 = 8994704) UPT Cassette Expiration Date, POC 02-10-2024 (test code = 6814175) [facility] [id number] 09:32:00 Test Item Value Reference Range Interpretation Comments Isolate 1 (test code = ISO1) Escherichia coli A ampicillin (test code = am) ug/mL R piperacillin/tazobactam ug/mL S (test code = tzp) ceftazidime (test code = ug/mL S villa) ceftriaxone1 (test code = ug/mL S ctr) cefepime (test code = fep) ug/mL S aztreonam (test code = azm) ug/mL S ertapenem (test code = etp) ug/mL S meropenem (test code = mem) ug/mL S gentamicin (test code = gm) ug/mL S tobramycin (test code = tob) ug/mL S levofloxacin (test code = ug/mL S lev) trimethoprim/sulfamethoxazol ug/mL R e (test code = sxt) nitrofurantoin (test code = ug/mL S ftn) GLUCOMETER GLUCOSE- LAB USE [id number] 23:07:00 Test Item Value Reference Range Interpretation Comments GLUCOMETER (test code = 294 mg/dL 70-100 H Mete r ID: GMG) [id number] tor: [address] [facility] 12 PANEL *OW* [id number] 22:27:00 Test Item Value Reference Range Interpretation [...] code = LEUK) GLUCOMETER GLUCOSE- LAB USE [id number] 21:48:00 Test Item Value Reference Range Interpretation Comments GLUCOMETER (test code 415 mg/dL 70-100 H CLEANE D METERMeter ID: = GMG) [id number] tor: [address] [facility] UILAR ANTI-NUCLEAR ANTIBODY (LILIANA)2022-10-04 13:24:00 Test Item Value Reference Range Interpretation Comments ANTI-NUCLEAR ANTIBODY (LILIANA) (BEAKER) Negative Negative (test code = 418) Test performed by IFA method.[id number] 18:03:21 Test Item Value Reference Range Interpretation Comments FERRITIN (BEAKER) (test code = 47.03 ng/mL 5.00-275.00 361) Manager Web Application ID - BSHEPATITIS B SURFACE [id number] 17:24:59 Test Item Value Reference Range Interpretation Comments HEPATITIS B SURFACE ANTIBODY 8.8 mIU/mL <8.0 H (BEAKER) (test code = 647) Manager Web Application ID - BSHEPATITIS C [id number] 17:21:28 Test Item Value Reference Range Interpretation Comments HEPATITIS C ANTIBODY (BEAKER) Nonreactive Nonreactive (test code = 367) Manager Web Application ID - BSHEPATITIS B SURFACE [id number] 17:18:36 Test Item Value Reference Range Interpretation Comments HEPATITIS B SURFACE ANTIGEN (2) Nonreactive Nonreactive (BEAKER) (test code = 2585) Specimen is considered negative for HBsAg.ALPHA FETOPROTEIN (AFP), TUMOR MARKER 2022-10-03 17:18:36 Test Item Value Reference Range Interpretation Comments ALPHA-FETOPROTEIN (BEAKER) (test 2.4 ng/mL <10.0 code = 1094) Manager Web Application ID - BSHEPATITIS B CORE ANTIBODY, [id number] 17:18:36 Test Item Value Reference Range Interpretation Comments HEPATITIS B CORE TOTAL ANTIBODY Nonreactive Nonreactive (BEAKER) (test code = 497) Manager Web Application ID - BSHEPATITIS A ANTIBODY, [id number] 17:18:36 Test Item Value Reference Range Interpretation Comments HEPATITIS A IGG ANTIBODY (BEAKER) Nonreactive Nonreactive (test code = 2797) Manager Web Application ID - BSBILIRUBIN, [id number] 17:00:09 Test Item Value Reference Range Interpretation Comments BILIRUBIN DIRECT (BEAKER) (test 1.4 mg/dL 0.1-0.5 H code = 706) Manager Web Application ID - BSCOMPREHENSIVE METABOLIC [id number] 17:00:03 Test Item Value Reference Range Interpretation [...] not appl icable for dialysis patien ts Manager Web Application ID - BSIRON, TIBC, % SAT. (WITHOUT FERRITIN)2022-10-03 16:56:26 Test Item Value Reference Range Interpretation Comments IRON (BEAKER) (test code = 547) 68.0 ug/dL 40.0-160.0 TOTAL IRON BINDING CAPACITY 424 ug/dL 250-450 (BEAKER) (test code = 769) IRON % SATURATION (2) (BEAKER) 16 % 20-55 L (test code = 2590) Manager Web Application ID - [id number] 16:56:05 Test Item Value Reference Range Interpretation Comments ALPHA-1 ANTITRYPSIN (BEAKER) 200.60 mg/dL 90.00-200.00 H (test code = 502) Manager Web Application ID - BSPROTHROMBIN TIME/[id number] 16:36:21 Test Item Value Reference Range Interpretation Comments PROTIME (BEAKER) 16.2 seconds 11.9-14.2 H (test code = 759) INR (BEAKER) (test 1.38 See_Comment [Automat ed message] code = 370) The system [facility] generated this result transmitted ref erence range: <=5.90. The reference range was not used to int erpret this result as normal/abnormal . RECOMMENDED COUMADIN/WARFARIN INR THERAPY RANGESSTANDARD DOSE: 2.0 - 3.0 Includes: PROPHYLAXIS for venous thrombosis, systemic embolization; TREATMENT for venous thrombosis and/or pulmonary embolus.HIGH RISK: Target INR is 2.5-3.5 for patients with mechanical heart valves.CBC W/PLT COUNT & AUTO [id number] 16:27:38 Test Item Value Reference Range Interpretation [...] 2801) XR CHEST 2 VIEW *OW*2022-09-18 01:15:09 [facility] : 1975 Sex: FChest, PA and La teralLocation Code [id number]: Influenza-like illnessFindings: There are no infiltrates. There are no pleural effusions. There is no pneumothorax. Cardiac silhouette and mediastinum appear within normal limits. Impression: No active pulmonary findings.Electronically signed by: Cory Pastor MD 09/18/2022 1:15 AM [facility] -Ud[facility] (RAPID ANTIGEN) WH2022-09-18 00:58:00 Test Item Value Reference Range Interpretation Comments SARS-CoV (ANTIGEN) POSITIVE NEGATIVE AA (test code = COVAG) COVID AG (test This test has been code = COVAGC) marketed under the FDA Emergency Use Authorization (EUA) to meet challenges of the COVID-19 pandemic. The validation standards normally enforced by the FDA and the [employer] of the [employer] (CAP) are more stringent than those required for this test. Therefore, the result should be interpreted with caution and close attention to other clinical and epidemiological data INFLUENZA A AND B OW2022-09-18 00:54:00 Test Item Value Reference Range Interpretation Comments INFLUENZ A (test code = INFA) NEGATIVE NEGATIVE INFLUENZ B (test code = INFB) NEGATIVE NEGATIVE MR, ABDOMEN, [id number] 07:25:00REFERRING : DI COTTON MD....1495Unlisted Reason for Exam - Click Yes and Enter Reason Below->YesUnlisted Reason for Exam->[facility] : 1975 Sex: FFINAL [...] Smaller seroma in the resection bed. Signed: Michaela Choeeport Verified Date/Time: 09/05/2022 07:25:01 CT, CHEST, WITH [id number] 14:45:00REFERRING : DI COTTON MD....1495Unlisted Reason for Exam - Click Yes and Enter Reason Below->Y esUnlisted Reason for Exam->[facility] : 1975 Sex: FFINAL [...] evidence of acute cardiopulmonary disease. Signed: Piyush Alvarez Verified Date/Time: 09/01/2022 14:45:00 BONE AND/OR JOINT IMAGING, WHOLE BODY 2022-08-30 16:36:00REFERRING : DI COTTON MD....1495Unlisted Reason for Exam - Click Yes and Enter Reason Below->YesUnlisted Reason for Exam->[facility] : 1975 Sex: FFINAL REPORT PROCEDURE: BONE SCAN, WHOLE BODY CPT CODE: 83414 INDICATION: Hepatocellular carcinoma PROTOCOL: 22 mCi of Tc-99m MDP was injected intravenously. Whole body and selectedspot images were obtained approximately 3 hours later. [...] about the sacrum/sacroiliac joints with no definite correlate on recent CT. Relatively normal pattern of uptake within the kidneys and soft tissue. IMPRESSION: No scintigraphic findings to suggest an active osseous metastasis. Nonspecific slightly more prominentuptake about the sacrum and sacroiliac joints, degenerative/inflammatory etiology? Signed: Rashaun Bustosort Verified Date/Time: 08/30/2022 16:36:14 CT, CHEST, WITH [id number] 15:43:00 REFERRING : DI COTTON MD....1495Unlisted Reason for Exam - Click Yes and Enter Reason Below->YesUnlisted Reason for Exam->Hepatocellular carcinoma (HCCode) (HCC)[facility] : 1975 Sex: FFINAL REPORT [...] MDReport Verified Date/Time: 05/27/2022 15:43:25 AFP TUMOR [id number] 12:01:41 Test Item Value Reference Range Interpretation Comments AFP-TUMOR MARKER See_Comment Unless Oth erwise (test code = Indicated, All Testing 10160-6) Performed At: [facility] [address] Director: Pepper Basurto M.D. CLIA Number [id number] [place]. [id number] [Autom ated message] The sy stem which generated this result transmit kylie reference range : <=8.30 NG/ML. The refe rence range was not u sed to interpret this result as normal/abnormal . THAI (test code = PT FASTING THAI) [facility]PRE[facility] [id number] 11:11:44 Test Item Value Reference Range Interpretation Comments GLUCOSE (test code = See_Comment H [Autom ated message] 2345-7) The system [facility] generated this result transmitted ref erence range: [...] [Auto mated message] = 2160-0) The system [facility] generated this result transmitted ref erence range: 0.60 - 1 .30 MG/DL. The refe rence range was not u sed to interpret this result as normal/abnor mal. EGFR (test code = See_Comment L [Automate d message] 31468-9) The system [facility] generated this result transmitted ref erence range: >60 ML/MIN/1.73. Th e reference range was not used to int erpret this result as normal/abnormal . BUN/CREAT RATIO (test See_Comment [Auto mated message] code = 3097-3) The system [employer] generated this result transmitted ref erence range: 6 - 28 R ATIO. The reference r kilo was not used to interpret this result as normal/abnor mal. SODIUM (test code = See_Comment [Automa kylie message] 2951-2) The system [facility] [employer] generated this result transmitted ref erence range: 133 - 14 6 MEQ/L. The refe rence range was not u sed to interpret this result as normal/abnor mal. POTASSIUM (test code = See_Comment [Aut omated message] 2823-3) The system [facility] generated this result transmitted ref erence range: 3.5 - 5. 4 MEQ/L. The refe rence range was not u sed to interpret this result as normal/abnor mal. CHLORIDE (test code = See_Comment [Auto mated message] 2075-0) The system [facility] [employer] generated this result transmitted ref erence range: 95 - 107 MEQ/L. The refe rence range was not u sed to interpret this result as normal/abnor mal. CO2 (test code = See_Comment [Automated message] 1963-8) The system [employer] generated this result transmitted ref erence range: 19 - 31 MEQ/L. The reference r kilo was not used to interpret this result as normal/abnor mal. CALCIUM (test code = See_Comment [Autom ated message] 01779-0) The system [facility] [employer] generated this result transmitted ref erence range: 8.5 - 10 .5 MG/DL. The refe rence range was not u sed to interpret this result as normal/abnor mal. PROTEIN TOTAL (test See_Comment [Automa kylie message] code = 2885-2) The system [employer] generated this result transmitted ref erence range: 6.1 - 8. 3 G/DL. The refer ence range was not u sed to interpret this result as normal/abnor mal. ALBUMIN (test code = See_Comment [Autom ated message] 00114-9) The system [facility] [employer] generated this result transmitted ref erence range: 3.5 - 5. 2 G/DL. The refer ence range was not u sed to interpret this result as normal/abnor mal. GLOBULINS, SERUM, See_Comment H [Automate d message] TOTAL (test code = The syste m which 28355-4) generated this result transmitted ref erence range: 1.9 - 3. 7 G/DL. The refer ence range was not u sed to interpret this result as normal/abnor mal. A/G RATIO (test code = See_Comment [Aut omated message] 1759-0) The system ic h generated this result transmitted ref erence range: 1.0 - 2. 6 RATIO. The refe rence range was not u sed to interpret this result as normal/abnor mal. BILIRUBIN TOTAL (test See_Comment [Auto mated message] code = 1975-2) The system ich generated this result transmitted ref erence range: <=1.2 MG /DL. The reference r kilo was not used to interpret this result as normal/abnor mal. ALKALINE PHOSPHATASE 140 U/L 40-116 H (test code = 6768-6) AST (SGOT) (test code 38 U/L 9-40 = 1920-8) ALT (SGPT) (test code 22 U/L 5-40 Unles s Otherwise = 1744-2) Indicated, All Testing Perform ed At: [facility], [address] [place] [address] Laborator y Director: Pepper Basurto M.D. CLIA Number [id number] [place]. [id number] THAI (test code = THAI) PT FASTING Lab Interpretation Abnormal (test code = 60973-8) [facility] W/AUTO DIFF WITH [id number] 07:35:16 Test Item Value Reference Range Interpretation Comments WHITE BLOOD CELL COUNT See_Comment [Aut omated message] (test code = 40152-7) The sy stem which generated this result transmit kylie reference range : 3.5 - 11.0 K/UL. Th e reference range was not used to interpret this result as normal/abnormal . RED BLOOD CELL COUNT See_Comment [Autom ated message] (test code = 31962-4) The sy stem which generated this result transmit kylie reference range : 3.80 - 5.40 M/U L. The reference r kilo was not used to interpret this result as normal/abnormal . HEMOGLOBIN (test code = See_Comment L [Au tomated message] 718-7) The system [facility] generated this result transmit kylie reference range : 11.5 - 15.5 G/D L. The reference r kilo was not used to interpret this result as normal/abnormal . HEMATOCRIT (test code = 32.3 % 34-45 L 54859-6) MEAN CORPUSCULAR VOLUME 78.4 fL 80-99 L (test code = 12114-5) MEAN CORPUSCULAR 24.8 PG 25-33 L HEMOGLOBIN (test code = 55295-4) MEAN CORPUSCULAR See_Comment [Automated message] HEMOGLOBIN CONC (test The sy stem which code = 86991-4) generated th is result transmit kylie reference range : 31.0 - 36.0 G/D L. The reference r kilo was not used to interpret this result as normal/abnormal . RED CELL DISTRIBUTION 16.7 % 11.5-15 H WIDTH (test code = 81279-1) NEUTROPHILS % (test 54.6 % code = 78818-7) LYMPHOCYTES % (test 33.9 % code = 99639-3) MONOCYTES % (test code 8.5 % = 42085-7) EOSINOPHILS % (test 2.2 % code = 13843-8) BASOPHILS % (test code 0.5 % = 87694-8) IMMATURE GRANULOCYTES 0.3 % (test code = 85949-8) NUCLEATED RBC'S See_Comment Unless Othe rwise MYELOPEROX STAIN (test Indic ated, All code = 99286-9) Testing Perf ormed At: [facility], [address] [place] [address] Laborator y Director: Pepper Basurto M.D. CLIA Number [id number] [place] [address]-22 [Automated mess age] The system [facility] generated this result transmit kylie reference range : 0.00 - 0.11 K/U L. The reference r kilo was not used to interpret this result as normal/abnormal . PLATELET COUNT (test See_Comment H [Autom ated message] code = 43227-9) The system [employer] [facility] generated this result transmit kylie reference range : 130 - 400 K/UL. The reference range was not used to interpret this result as normal/abnormal . NEUTROPHILS ABSOLUTE See_Comment [Autom ated message] COUNT (test code = The [facility] which 81253-9) generated this result transmit kylie reference range : 1.50 - 7.50 K/U L. The reference r kilo was not used to interpret this result as normal/abnormal . LYMPHOCYTES ABSOLUTE See_Comment [Autom ated message] COUNT (test code = [facility] 56055-[facility] generated this result transmit kylie reference range : 1.00 - 4.00 K/U L. The reference r kilo was not used to interpret this result as normal/abnormal . MONOCYTES ABSOLUTE See_Comment [Automat ed message] COUNT (test code = [facility] 52400-[facility] generated this result transmit kylie reference range : 0.20 - 1.00 K/U L. The reference r kilo was not used to interpret this result as normal/abnormal . BASOPHILS ABSOLUTE See_Comment [Automat ed message] COUNT (test code = The [facility] which 75403-6) generated this result transmit kylie reference range [...] FASTING Lab Interpretation Abnormal (test code = 93891-8) [facility], [facility], [id number] 11:25:00REFERRING : DI COTTON MD....1495Include Abdominal VesselsUnlisted Reason for Exam - Click Yes and Enter Reason Below->No [facility] : 1975 Sex: FFINAL REPORT MRI of [...] Michaela Choe Verified Date/Time: 05/11/2022 11:25:26 BLOOD [id number] 00:01:11 Test Item Value Reference Range Interpretation Comments CULTURE (BEAKER) (test No growth in 5 days code = 1095) BLOOD [id number] 23:00:55 Test Item Value Reference Range Interpretation Comments CULTURE (BEAKER) (test No growth in 5 days code = 1095) CT, [id number] 02:50:00REFERRING : DI COTTON MD....1495Reason for exam:->POST-OP PROBLEMReason for exam:->ABDOMINAL PAINIs the patient ?->UnknownWhat is the patient's sedation requirement?->No Sedation [facility] : 1975 Sex: FFINAL REPORT [...] right hepatectomy postsurgical bed. Signed: Amber Cho Verified Date/Time:02/08/2022 02:50:39 Urinalysis w/Microscopic + Reflex to [id number] 02:04:32 Test Item Value Reference Range Interpretation Comments Color, UA (test code Yellow = 5778-6) Clarity, UA (test Clear code = 5767-9) Specific [place], UA 1.015 1.001-1.035 (test code = 5811-5) pH, UA (test code = 6.5 5.0-8.0 5803-2) Protein, UA (test 10 mg/dL Negative A code = 17200-0) Glucose, UA (test Negative Negative code = 365) Ketones, UA (test Negative Negative code = 2514-8) Bilirubin, UA (test Negative Negative code = 09703-9) Blood, UA (test code Negative Negative = 27885-7) Nitrite, UA (test Negative Negative code = 5802-4) Leukocytes, UA (test Negative Negative code = 5799-2) Urobilinogen, UA 0.2 mg/dL 0.2-1.0 (test code = 34343-9) RBC, UA (test code = <1 See_Comment [Autom ated 44157-8) message] The system which generated this result [...] Bacteria, UA (test None Seen code = 69964-1) Squam Epithel, UA 6 See_Comment [Automate d (test code = message] The 76826-7) system which generated this result transmitted reference range : /HPF. The reference range was not used to interpret this result as normal/abnormal . Hyaline Casts, UA 3 See_Comment [Automate d (test code = message] The 56155-0) system which generated this result transmitted reference range : /LPF. The reference range was not used to interpret this result as normal/abnormal . Crystals, Urine None Seen (test code = 46258-8) Specimen Source (test code = 2795) THAI (test code = Manager Web Application ID - THAI) [auto]Manager Web Application ID - [auto]Manager Web Application ID - techOperator ID - tech Lab Interpretation Abnormal (test code = 84050-3) [facility] w/Microscopic + Reflex to Culture 2022-02-08 02:04:32 Test Item Value Reference Range Interpretation Comments Color, UA (test code Yellow = 5778-6) Clarity, UA (test Clear code = 5767-9) Specific [place], UA 1.015 1.001-1.035 (test code = 5811-5) pH, UA (test code = 6.5 5.0-8.0 5803-2) Protein, UA (test 10 mg/dL Negative A code = 52129-5) Glucose, UA (test Negative Negative code = 365) Ketones, UA (test Negative Negative code = 2514-8) Bilirubin, UA (test Negative Negative code = 82930-6) Blood, UA (test code Negative Negative = 85882-0) Nitrite, UA (test Negative Negative code = 5802-4) Leukocytes, UA (test Negative Negative code = 5799-2) Urobilinogen, UA 0.2 mg/dL 0.2-1.0 (test code = 65713-8) RBC, UA (test code = <1 See_Comment [Autom ated 65730-5) message] The system which generated this result [...] Bacteria, UA (test None Seen code = 75274-5) Squam Epithel, UA 6 See_Comment [Automate d (test code = message] The 52058-8) system which generated this result transmitted reference range : /HPF. The reference range was not used to interpret this result as normal/abnormal . Hyaline Casts, UA 3 See_Comment [Automate d (test code = message] The 42668-9) system which generated this result transmitted reference range : /LPF. The reference range was not used to interpret this result as normal/abnormal . Crystals, Urine None Seen (test code = 15541-9) Specimen Source (test code = 2795) THAI (test code = Manager Web Application ID - THAI) [auto]Manager Web Application ID - [auto]Manager Web Application ID - techOperator ID - tech Lab Interpretation Abnormal (test code = 22422-8) [facility] California[facility] W/ REFLEX URINE [id number] 02:04:32 Test Item Value Reference Range Interpretation [...] = 1521) SOURCE(BEAKER) (test code = 2795) Manager Web Application ID - [auto]Manager Web Application ID - [auto]Manager Web Application ID - techOperator ID - tech Screen, [id number] 01:51:18 Test Item Value Reference Range Interpretation Comments Preg Test, Ur (test code = 2112-1) Negative [facility] CaliforniaPregnancy Screen, [id number] 01:51:18 Test Item Value Reference Range Interpretation Comments Preg Test, Ur (test code = 2112-1) Negative [facility] CaliforniaPREGNANCY SCREEN, [id number] 01:51:18 Test Item Value Reference Range Interpretation Comments TEST URINE (BEAKER) (test Negative code = 583) SARS-CoV2/Influenza/RSV RT-PCR (Symptomatic ONLY)2022-02-07 23:40:07 Test Item Value Reference Interpretation Comments Range SARS-COV2/RT-PCR Negative Negative The SARS-Co V-2 (test code = target nucleic 76293-8) acids are not detected in thi s [...] rapid, real-mauri e RT-PCR test intended for th e qualitative detection of nucleic acid fr om SARS-CoV-2 in a nasopharyngeal swab specimen [facility] from individual s suspected of COVID-19 by the ir healthcare provider. Influenza A RT-PCR Negative Negative The Flu A target (test code = [place] 31434-5) not detected in this specimen. Influenza B RT-PCR Negative Negative The Flu B target (test code = [place] 07287-6) not detected in this specimen. RSV by RT-PCR (test Negative Negative The RSV target code = 25922-5) nucleic acid s are not detected in this specimen. THAI (test code = The presence of HTAI) SARS-CoV-2/FLU/RSV viral nucleic acids cannot rule out [...] SARS-CoV-2/Flu/RSV by their healthcare provider. Results from [facility] Xpert Xpress SARS-CoV-2/Flu/RSV test should be correlated [...] the Act. Fact Sheet for Healthcare Providers:https://w [employer]/Docu ments/Xpert%20Xpres s%20SARS%20CoV-2/Fa ct%20Sheets/302-390 2%90GTQZ-RPZ-9%20HE ALTHCARE%20PROVIDER S%20FACT%20SHEET.pd f Fact Sheet for Healthcare Patients:https://ww [employer]/Docum ents/Xpert%20Xpress %20SARS%20Cov-2/Fac t%20Sheets/302-3801 %70GUPD-AFF-0%20PAT IENT%20FACT%20SHEET .pdf Lab Interpretation Normal (test code = 86518-0) [facility]V [facility] (Symptomatic ONLY) 2022-02-07 23:40:07 Test Item Value Reference Interpretation Comments Range SARS-COV2/RT-PCR Negative Negative The SARS-Co V-2 (test code = target nucleic 10213-9) acids are not detected in thi s [...] individual s suspected of COVID-19 by the ir healthcare provider. Influenza A RT-PCR Negative Negative The Flu A target (test code = [place] 79894-3) not detected in this specimen. Influenza B RT-PCR Negative Negative The Flu B target (test code = nucleic [place] re 20449-3) not detected in this specimen. RSV by RT-PCR (test Negative Negative The RSV target code = 24981-4) nucleic acid s are not detected in [...] SARS-CoV-2/Flu/RSV by their healthcare provider. Results from [facility] Xpert Xpress SARS-CoV-2/Flu/RSV test should be correlated [...] the Act. Fact Sheet for Healthcare Providers:https://w [employer]/Docu ments/Xpert%20Xpres s%20SARS%20CoV-2/Fa ct%20Sheets/302-390 2%25CBKY-QTO-5%20HE ALTHCARE%20PROVIDER S%20FACT%20SHEET.pd f Fact Sheet for Healthcare Patients:https://inderjit [employer]/Docum ents/Xpert%20Xpress %20SARS%20Cov-2/Fac t%20Sheets/302-3801 %57SXDB-UNP-3%20PAT IENT%20FACT%20SHEET .pdf Lab Interpretation Normal (test code = 05154-8) [facility]FL[facility]ENZA/RSV [id number] 23:40:07 Test Item Value Reference Range Interpretation Comments SARS-COV2/RT-PCR Negative Negative The SARS-Co V-2 target (test code = nucleic acids a re not 5861927) detected in thi s specimen. Negat abhishek [...] a nasopharyngeal swab specimen collec kylie from individuals adelso pected of COVID-19 by the [employer] [facility] ider. INFLUENZA A RT-PCR Negative Negative The Flu A target nucleic (test code = acids are not d etected in 19101116) this specimen. INFLUENZA B RT-PCR Negative Negative The Flu B target nucleic (test code = acids are not d etected in 19101117) this specimen. RSV RT-PCR (test Negative Negative The RSV tar get nucleic code = 9437493) acids are no t detected in this [...] Xpress SARS-CoV-2/Flu/RSV by their healthcareprovider. Results from katja Xpert Xpress SARS-CoV-2/Flu/RSV test should be correlated [...] of the Act.Fact Sheet for Healthcare Providers:https ://www.[employer].com/Documents/Xpert%20Xpress%20SARS%20CoV-2/Fact%20Sheets/302-390 2%41YVDW-VYA-1%20HEALTHCARE%20PROVIDERS%20FACT%20SHEET.pdfFact Sheet for Healthcare Patients:https://www.[facility]/Docum ents/Xpert%20Xpress%20SARS%20Cov-2/Fact%20Sheets/302-3801%97NIHU-EWC-1%20PATIENT %20FACT%20SHEET.pdfCOMPREHENSIVE METABOLIC [id number] 22:29:02 Test Item Value Reference Range Interpretation [...] S NOT APPLICABLE FOR DIALYSIS PATIEN TS. Manager Web Application ID - DBLACTIC ACID, [id number] 22:24:45 Test Item Value Reference Range Interpretation Comments LACTATE BLOOD VENOUS 1.83 mmol/L 0.50-2.20 Specime n slightly (2) (BEAKER) (test hemolyzed code = 3487) Manager Web Application ID - [id number] 22:15:45 Test Item Value Reference Range Interpretation Comments PARTIAL THROMBOPLASTIN TIME 29.7 seconds 22.5-36.0 (BEAKER) (test code = 760) PROTHROMBIN TIME/[id number] 22:15:02 Test Item Value Reference Range Interpretation Comments PROTIME (BEAKER) 16.5 seconds 11.9-14.2 H (test code = 759) INR (BEAKER) (test 1.35 See_Comment [Automat ed message] code = 370) The system [facility] generated this result transmitted ref erence range: <=5.90. The reference range was not used to int erpret this result as normal/abnormal . RECOMMENDED COUMADIN/WARFARIN INR THERAPY RANGESSTANDARD DOSE: 2.0 - 3.0 Includes: PROPHYLAXIS for venous thrombosis, systemic embolization; TREATMENT for venous thrombosis and/or pulmonary embolus.HIGH RISK: Target INR is 2.5-3.5 for patients with mechanical heart valves.CBC W/PLT COUNT & AUTO [id number] 22:08:48 Test Item Value Reference Range Interpretation [...] code = 2801) URINALYSIS W/ REFLEX URINE [id number] 14:59:27 Test Item Value Reference Range Interpretation [...] = 1521) SOURCE(BEAKER) (test code = 2795) Manager Web Application ID - [auto]Manager Web Application ID - techHEPATIC FUNCTION [id number] 13:45:28 Test Item Value Reference Range Interpretation [...] (test code = 20 U/L 6-55 347) Manager Web Application ID - BSGAMMA GLUTAMYL TRANSFERASE (GGT)2022-02-07 13:45:28 Test Item Value Reference Range Interpretation Comments GAMMA GLUTAMYL TRANSFERASE (BEAKER) 261 U/L 9-64 H (test code = 364) Manager Web Application ID - BSBASIC METABOLIC [id number] 13:45:27 Test Item Value Reference Range Interpretation [...] S NOT APPLICABLE FOR DIALYSIS PATIEN TS. Manager Web Application ID - [id number] 13:45:27 Test Item Value Reference Range Interpretation Comments MAGNESIUM (BEAKER) (test code = 2.0 mg/dL 1.6-2.6 627) Manager Web Application ID - [id number] 13:45:27 Test Item Value Reference Range Interpretation Comments PHOSPHORUS (BEAKER) (test code = 4.3 mg/dL 2.3-4.7 604) Manager Web Application ID - BSCBC W/PLT COUNT & AUTO [id number] 13:35:47 Test Item Value Reference Range Interpretation [...] PERCENT (BEAKER) (test code = 2801) PROTHROMBIN TIME/[id number] 13:29:58 Test Item Value Reference Range Interpretation Comments PROTIME (BEAKER) 18.7 seconds 11.9-14.2 H (test code = 759) INR (BEAKER) (test 1.59 See_Comment [Automat ed message] code = 370) The system [facility] generated this result transmitted ref erence range: [...] S NOT APPLICABLE FOR DIALYSIS PATIEN TS. Manager Web Application ID - [id number] ID - mwdp66Hqeznfxy ID - ifcm95Suyckekl ID - rvve54Tgxrgvci ID - alew64Cvpektrf ID - mids27Lzhotule ID - kzys21Iegqrnrl ID - lhsl60Wfeqdoaz ID - kjng66Qwubrykb ID - dwrb73Xlwsspqb ID - ltwh98Afdswbjf ID - yqdz31Rdflbngq ID - epqi46Uvqlncti ID - nglz24Khvbofsy ID - rcuc66Tgndnlyi ID - bacg50Awyawzwq ID - punk28Jbjnagxz ID - lnrk92Sxgejcsd ID - angd76Srkzbwomui w/Jpofpnjddmf8784-87-60 03:45:06 Test Item Value Reference Range Interpretation Comments Color, UA (test code = Yellow 5778-6) Clarity, UA (test code = Clear 5767-9) Specific [place], UA 1.015 1.001-1.035 (test code = 5811-5) pH, UA (test code = 6.0 5.0-8.0 5803-2) Protein, UA (test code = 30 mg/dL Negative A 88768-4) Glucose, UA (test code = Negative Negative 365) Ketones, UA (test code = Negative Negative 2514-8) Bilirubin, UA (test code Negative Negative = 85685-5) Blood, UA (test code = Negative Negative 67289-7) Nitrite, UA (test code = Negative Negative 5802-4) Leukocytes, UA (test Negative Negative code = 5799-2) Urobilinogen, UA (test 1.0 mg/dL 0.2-1.0 code = 17695-2) Bacteria, UA (test code None Seen = 63566-0) RBC, UA (test code = None Seen See_Comment [Autom ated message] 799-7) The system [facility] generated this result transmit kylie reference range : /HPF. The refer ence range was not u sed to interpret th is result as normal/abnormal . WBC, UA (test code = None Seen See_Comment [Autom ated message] 69599-9) The system [facility] generated this result transmit kylie reference range : /HPF. The refer ence range was not u sed to interpret th is result as normal/abnormal . SQUAMOUS EPITHELIAL <5 See_Comment [Automa kylie message] (test code = 08038-2) The sy stem which generated this result transmit kylie reference range : /HPF. The refer ence range was not u sed to interpret th is result as normal/abnormal . Specimen Source (test code = 2795) Lab Interpretation (test Abnormal code = 10992-5) [facility] California[facility]inalysis w/Exbiklhumwc9822-98-03 03:45:06 Test Item Value Reference Range Interpretation Comments Color, UA (test code = Yellow 5778-6) Clarity, UA (test code = Clear 5767-9) Specific [place], UA 1.015 1.001-1.035 (test code = 5811-5) pH, UA (test code = 6.0 5.0-8.0 5803-2) Protein, UA (test code = 30 mg/dL Negative A 64362-1) Glucose, UA (test code = Negative Negative 365) Ketones, UA (test code = Negative Negative 2514-8) Bilirubin, UA (test code Negative Negative = 54776-1) Blood, UA (test code = Negative Negative 42838-4) Nitrite, UA (test code = Negative Negative 5802-4) Leukocytes, UA (test Negative Negative code = 5799-2) Urobilinogen, UA (test 1.0 mg/dL 0.2-1.0 code = 63848-2) Bacteria, UA (test code None Seen = 56748-4) RBC, UA (test code = None Seen See_Comment [Autom ated message] 799-7) The system [facility] generated this result transmit kylie reference range : /HPF. The refer ence range was not u sed to interpret th is result as normal/abnormal . WBC, UA (test code = None Seen See_Comment [Autom ated message] 37659-1) The system [facility] generated this result transmit kylie reference range : /HPF. The refer ence range was not u sed to interpret th is result as normal/abnormal . SQUAMOUS EPITHELIAL <5 See_Comment [Automa kylie message] (test code = 28626-1) The sy stem which generated this result transmit kylie reference range : /HPF. The refer ence range was not u sed to interpret th is result as normal/abnormal . Specimen Source (test code = 2795) Lab Interpretation (test Abnormal code = 87304-4) [facility] California[facility]INALYSIS W/ FCZSBLHSJHM0006-12-17 03:45:06 Test Item Value Reference Range Interpretation [...] SOURCE(BEAKER) (test code = 2795) HCG, SERUM, [id number] 03:40:27 Test Item Value Reference Range Interpretation Comments TEST SERUM (BEAKER) (test Negative code = 584) CBC W/PLT COUNT & AUTO [id number] 03:26:52 Test Item Value Reference Range Interpretation [...] code = 2801) RAD, ABDOMEN/KUB, 1 VIEW [id number] 14:44:00REFERRING : DI COTTON MD....1495Reason for Exam:->abdominal [facility] : 1975 Sex: FFINAL [...] noted on prior CT. Signed: Ashley Richards MDReps[facility] Verified Date/Time: 01/30/2022 14:44:42 Reading Location: [facility] Reading Room [address] [place] [address] HEPATIC FUNCTION [id number] 13:33:06 Test Item Value Reference Range Interpretation [...] (test code = 23 U/L 6-55 347) Manager Web Application ID - ADMINBASIC METABOLIC [id number] 13:23:56 Test Item Value Reference Range Interpretation [...] S NOT APPLICABLE FOR DIALYSIS PATIEN TS. Manager Web Application ID - LJFQUGHDFJDZUC9430-26-22 13:23:56 Test Item Value Reference Range Interpretation Comments MAGNESIUM (BEAKER) (test code = 2.0 mg/dL 1.6-2.6 627) Manager Web Application ID - GBULZUHWTRIMKTP7336-08-64 13:23:56 Test Item Value Reference Range Interpretation Comments PHOSPHORUS (BEAKER) (test code = 3.7 mg/dL 2.3-4.7 604) Manager Web Application ID - ADMINGAMMA GLUTAMYL TRANSFERASE (GGT)2022-01-28 13:23:56 Test Item Value Reference Range Interpretation Comments GAMMA GLUTAMYL TRANSFERASE (BEAKER) 249 U/L 9-64 H (test code = 364) Manager Web Application ID - ADMINCBC W/PLT COUNT & AUTO [id number] 13:19:05 Test Item Value Reference Range Interpretation [...] PERCENT (BEAKER) (test code = 2801) PROTHROMBIN TIME/[id number] 13:10:11 Test Item Value Reference Range Interpretation Comments PROTIME (BEAKER) 18.4 seconds 11.9-14.2 H (test code = 759) INR (BEAKER) (test 1.55 See_Comment [Automat ed message] code = 370) The system [facility] generated this result transmitted ref erence range: <=5.90. The reference range was not used to int erpret this result as normal/abnormal . RECOMMENDED COUMADIN/WARFARIN INR THERAPY RANGESSTANDARD DOSE: 2.0 - 3.0 Includes: PROPHYLAXIS for venous thrombosis, systemic embolization; TREATMENT for venous thrombosis and/or pulmonary embolus.HIGH RISK: Target INR is 2.5-3.5 for patients with mechanical heart valves.BLOOD [id number] 00:00:58 Test Item Value Reference Range Interpretation Comments CULTURE (BEAKER) (test No growth in 5 days code = 1095) BLOOD [id number] 20:00:57 Test Item Value Reference Range Interpretation Comments CULTURE (BEAKER) (test No growth in 5 days code = 1095) POC-Glucose [id number] 11:18:25 Test Item Value Reference Range Interpretation Comments POC-Glucose Meter (test 148 mg/dL 70-110 H : TE STED AT [facility] code = 1538) [address] [facility], 770 30: Manager Web Application/Techni giana ID = [id number] for Rehami, Brad Lab Interpretation (test Abnormal code = 38263-1) [facility] [id number] 11:18:25 Test Item Value Reference Range Interpretation Comments POC-Glucose Meter (test 148 mg/dL 70-110 H : TE STED AT [facility] code = 1538) [address] [facility], 770 30: Manager Web Application/Techni giana ID = [id number] for Rehami, Brad Lab Interpretation (test Abnormal code = 16191-5) [facility] CaliforniaPOCT-GLUCOSE [id number] 11:18:25 Test Item Value Reference Range Interpretation Comments POC-GLUCOSE METER 148 mg/dL 70-110 H : TESTED A T [facility] 67[address] (BEAKER) (test code = [facility], 1538) [address]: Manager Web Application/Techni giana ID = [id number] for Re hami, Brad Venous doppler legs [id number] 08:13:57Ejection FractionSLEH ECHO HEARTLAB MKCKESSON [facility] HospitalVenous doppler legs bilateral 2022-01-23 08:13:57Ejection FractionSLEH ECHO HEARTLAB MKCKESSON [facility] HospitalPOCT-GLUCOSE [id number] 07:57:30 Test Item Value Reference Range Interpretation Comments POC-GLUCOSE METER 166 mg/dL 70-110 H : TESTED Thiago Jenkins [facility] 67[address] (BEAKER) (test code = [place] [place] [place], 1538) [address]: Manager Web Application/Techni giana ID = [id number] for Breonna Odell [id number] 02:33:12 Test Item Value Reference Range Interpretation Comments PHOSPHORUS (BEAKER) (test code = 3.5 mg/dL 2.3-4.7 604) Manager Web Application ID - BSHEPATIC FUNCTION [id number] 02:33:12 Test Item Value Reference Range Interpretation [...] (test code = 23 U/L 6-55 347) Manager Web Application ID - BSBASIC METABOLIC [id number] 02:33:11 Test Item Value Reference Range Interpretation [...] S NOT APPLICABLE FOR DIALYSIS PATIEN TS. Manager Web Application ID - [id number] 02:33:11 Test Item Value Reference Range Interpretation Comments MAGNESIUM (BEAKER) (test code = 2.1 mg/dL 1.6-2.6 627) Manager Web Application ID - BSVANCOMYCIN LEVEL, [id number] 02:27:48 Test Item Value Reference Range Interpretation Comments VANCOMYCIN TROUGH (BEAKER) (test 12.5 ug/mL 10.0-20.0 code = 522) Manager Web Application ID - BSPROTHROMBIN TIME/[id number] 02:25:48 Test Item Value Reference Range Interpretation Comments PROTIME (BEAKER) 18.9 seconds 11.9-14.2 H (test code = 759) INR (BEAKER) (test 1.61 See_Comment [Automat ed message] code = 370) The system [facility] generated this result transmitted ref erence range: [...] 0-0 (BEAKER) (test code = 413) POCT-GLUCOSE [id number] 21:12:23 Test Item Value Reference Range Interpretation Comments POC-GLUCOSE METER 161 mg/dL 70-110 H : TESTED A T [facility] 6720 (BEAKER) (test code = [facility], 153) [address]: Manager Web Application/Techni giana ID = [id number] for ZEB MANZANARES Triglycerides, Peritoneal [id number] 17:45:01 Test Item Value Reference Range Interpretation Comments TRIGLYCERIDES, 39 mg/dL <65 SAMPLE SLIGHT LY PERITONEAL FLUID ICTERIC. (test code = 52822-6) THAI (test code = Performing Lab EZ THAI) [facility] [address] [place] [address] Vijay Puckett MD, PhD, DONNAModoc Medical CenterTriglycerides, Peritoneal [id number] 17:45:01 Test Item Value Reference Range Interpretation Comments TRIGLYCERIDES, 39 mg/dL <65 SAMPLE SLIGHT LY PERITONEAL FLUID ICTERIC. (test code = 34477-4) THAI (test code = Performing Lab EZ THAI) [facility] [address] [place] [address] Vijay Puckett MD, PhD, DONNAModoc Medical CenterPOCT-GLUCOSE [id number] 15:30:32 Test Item Value Reference Range Interpretation Comments POC-GLUCOSE METER 202 mg/dL 70-110 H : TESTED A T [facility] 6720 (BEAKER) (test code = [facility], 1538) [address]: Manager Web Application/Techni giana ID = [id number] for Brad Bingham POCT-GLUCOSE [id number] 11:31:12 Test Item Value Reference Range Interpretation Comments POC-GLUCOSE METER 160 mg/dL 70-110 H : TESTED Thiago Jenkins [facility] 67[address] (KIT) (test code = [facility] [place] [place], 1538) [address]: Manager Web Application/Techni giana ID = [id number] for Hollis Rodriguez CT, BRAIN, WITHOUT [id number] 08:56:00REFERRING : DI COTTON MD....1495Unlisted Reason for Exam - Click Yes and Enter Reason Below->Y esUnlisted Reason for Exam->Intermittent confusion [facility] D[facility]EN RÍOS : 1975 Sex: FFINAL REPORT [...] DowlingMDReport Verified Date/Time: 01/22/2022 08:56:34 Reading Location: [address] Neuro Reading Room HEPATIC FUNCTION [id number] 07:38:04 Test Item Value Reference Range Interpretation [...] (test code = 28 U/L 6-55 347) Manager Web Application ID Ly LEE LOpetor ID - BSPOCT-GLUCOSE [id number] 07:21:24 Test Item Value Reference Range Interpretation Comments POC-GLUCOSE METER 118 mg/dL 70-110 H : TESTED A T [facility] 6720 (BEAKER) (test code = [facility] [place], 1538) [address]: Manager Web Application/Techni giana ID = [id number] for Me elise Antonio [id number] 07:01:32 Test Item Value Reference Range Interpretation Comments MAGNESIUM (BEAKER) (test code = 2.1 mg/dL 1.6-2.6 627) Manager Web Application ID - ROSA [id number] 07:01:32 Test Item Value Reference Range Interpretation Comments PHOSPHORUS (BEAKER) (test code = 4.1 mg/dL 2.3-4.7 604) Manager Web Application ID - ROSA LBASIC METABOLIC [id number] 07:01:31 Test Item Value Reference Range Interpretation [...] S NOT APPLICABLE FOR DIALYSIS PATIEN TS. Manager Web Application ID - PIAYA LPROTHROMBIN TIME/[id number] 06:09:16 Test Item Value Reference Range Interpretation Comments PROTIME (BEAKER) 19.0 seconds 11.9-14.2 H (test code = 759) INR (BEAKER) (test 1.62 See_Comment [Automat ed message] code = 370) The system [facility] generated this result transmitted ref erence range: [...] 0-0 (BEAKER) (test code = 413) POCT-GLUCOSE [id number] 21:05:10 Test Item Value Reference Range Interpretation Comments POC-GLUCOSE METER 107 mg/dL 70-110 : TESTED A T [facility] [address] (BEAKER) (test code = [facility], 1538) [address]: Manager Web Application/Techni giana ID = [id number] for ZEB MANZANARES POCT-GLUCOSE [id number] 15:53:25 Test Item Value Reference Range Interpretation Comments POC-GLUCOSE METER 188 mg/dL 70-110 H : TESTED A T [facility] 6720 (BEAKER) (test code = [facility], 1538) [address]: Manager Web Application/Techni giana ID = [id number] for An Alycia roldan CBC W/PLT COUNT & AUTO [id number] 14:13:04 Test Item Value Reference Range Interpretation [...] (test code = 2801) Venous doppler arm, [id number] 13:20:57Ejection FractionSLEH ECHO HEARTLAB MKFIRST [facility] CENTERON [facility]red HospitalVenous doppler arm, [id number] 13:20:57Ejection FractionSLEH ECHO HEARTLAB [facility]PO[facility] [id number] 13:14:13 Test Item Value Reference Range Interpretation Comments POC-GLUCOSE METER 166 mg/dL 70-110 H : TESTED A T [facility] 67[address] (BEAKER) (test code = [facility] [place], 1538) [address]: Manager Web Application/Techni giana ID = [id number] for JEY ODELL LEVEL, [id number] 11:08:02 Test Item Value Reference Range Interpretation Comments VANCOMYCIN TROUGH (BEAKER) (test 3.7 ug/mL 10.0-20.0 L code = 522) Manager Web Application ID - DBPOCT-GLUCOSE [id number] 08:27:22 Test Item Value Reference Range Interpretation Comments POC-GLUCOSE METER 161 mg/dL 70-110 H : TESTED A T [facility] 67[address] (BEAKER) (test code = [facility] [place] [place], 1538) [address]: Manager Web Application/Techni giana ID = [id number] for An Alycia roldan HEPATIC FUNCTION [id number] 06:27:02 Test Item Value Reference Range Interpretation [...] (test code = 27 U/L 6-55 347) Manager Web Application ID - PIAYA [id number] 06:27:01 Test Item Value Reference Range Interpretation Comments PHOSPHORUS (BEAKER) (test code = 3.4 mg/dL 2.3-4.7 604) Manager Web Application ID - PIAYA LBASIC METABOLIC [id number] 06:27:00 Test Item Value Reference Range Interpretation [...] S NOT APPLICABLE FOR DIALYSIS PATIEN TS. Manager Web Application ID - PILUCINDA [id number] 06:27:00 Test Item Value Reference Range Interpretation Comments MAGNESIUM (BEAKER) (test code = 2.0 mg/dL 1.6-2.6 627) Manager Web Application ID - ROSA LPROTHROMBIN TIME/[id number] 05:58:48 Test Item Value Reference Range Interpretation Comments PROTIME (BEAKER) 15.3 seconds 11.9-14.2 H (test code = 759) INR (BEAKER) (test 1.23 See_Comment [Automat ed message] code = 370) The system [facility] generated this result transmitted ref erence range: [...] 0-0 (BEAKER) (test code = 413) POCT-GLUCOSE [id number] 21:55:07 Test Item Value Reference Range Interpretation Comments POC-GLUCOSE METER 192 mg/dL 70-110 H : TESTED A T [facility] 6720 (BEAKER) (test code = [facility], 153) 501[address]: Manager Web Application/Techni giana ID = [id number] for Se Liss ramos POCT-GLUCOSE [id number] 16:01:22 Test Item Value Reference Range Interpretation Comments POC-GLUCOSE METER 177 mg/dL 70-110 H : TESTED A T [facility] 6720 (BEAKER) (test code = [facility], 153) 14[address]: Manager Web Application/Techni giana ID = [id number] for An toine, Alycia POCT-GLUCOSE [id number] 12:24:49 Test Item Value Reference Range Interpretation Comments POC-GLUCOSE METER 201 mg/dL 70-110 H : TESTED A T [facility] 6720 (BEAKER) (test code = [facility], 153) 895[address]: Manager Web Application/Techni giana ID = [id number] for An toine, Alycia Body fluid culture + gram [id number] 09:13:39 Test Item Value Reference Range Interpretation Comments Result (test code = 6463-4) No growth Gram Stain Result (test No organisms seen code = 1123) [facility] California[facility] fluid culture + gram [id number] 09:13:39 Test Item Value Reference Range Interpretation Comments Result (test code = 6463-4) No growth Gram Stain Result (test No organisms seen code = 1123) [facility] CaliforniaBODY FLUID CULTURE + GRAM [id number] 09:13:39 Test Item Value Reference Range Interpretation Comments CULTURE (BEAKER) (test No growth code = 1095) GRAM STAIN RESULT <1+ White blood cells (BEAKER) (test code = seen 1123) GRAM STAIN RESULT No organisms seen (BEAKER) (test code = 49586) POCT-GLUCOSE [id number] 08:18:35 Test Item Value Reference Range Interpretation Comments POC-GLUCOSE METER 225 mg/dL 70-110 H : [facility] 6720 (BEAKER) (test code = [place] [place] [place], 1538) [address]: Manager Web Application/Techni giana ID = [id number] for An Alycia roldan [id number] 07:02:30 Test Item Value Reference Range Interpretation Comments PHOSPHORUS (BEAKER) (test code = 3.1 mg/dL 2.3-4.7 604) Manager Web Application ID - DBHEPATIC FUNCTION [id number] 07:02:30 Test Item Value Reference Range Interpretation [...] (test code = 31 U/L 6-55 347) Manager Web Application ID - DBBASIC METABOLIC [id number] 07:02:29 Test Item Value Reference Range Interpretation [...] S NOT APPLICABLE FOR DIALYSIS PATIEN TS. Manager Web Application ID - [id number] 07:02:29 Test Item Value Reference Range Interpretation Comments MAGNESIUM (BEAKER) (test code = 2.0 mg/dL 1.6-2.6 627) Manager Web Application ID - DBPROTHROMBIN TIME/[id number] 06:49:18 Test Item Value Reference Range Interpretation Comments PROTIME (BEAKER) 14.7 seconds 11.9-14.2 H (test code = 759) INR (BEAKER) (test 1.17 See_Comment [Automat ed message] code = 370) The system [facility] generated this result transmitted ref erence range: [...] 0-0 (BEAKER) (test code = 413) POCT-GLUCOSE [id number] 21:52:39 Test Item Value Reference Range Interpretation Comments POC-GLUCOSE METER 162 mg/dL 70-110 H : TESTED A T [facility] 6720 (BEAKER) (test code = [facility], 1538) 625[address]: Manager Web Application/Techni giana ID = [id number] for [place] RBAJAL, LIAM POCT-GLUCOSE [id number] 16:39:47 Test Item Value Reference Range Interpretation Comments POC-GLUCOSE METER 240 mg/dL 70-110 H : TESTED A T [facility] 6720 (BEAKER) (test code = [facility], 1538) 14359: Manager Web Application/Techni giana ID = [id number] for RA MOS, ABBI Urine [id number] 11:53:59 Test Item Value Reference Range Interpretation Comments Result (test code = 6463-4) [facility] growth [facility] bqookrj2203-80-05 11:53:59 Test Item Value Reference Range Interpretation Comments Result (test code = 6463-4) No growth [facility] Hospital[facility] [id number] 11:53:59 Test Item Value Reference Range Interpretation Comments CULTURE (BEAKER) (test code = 1095) No growth POCT-GLUCOSE [id number] 11:49:25 Test Item Value Reference Range Interpretation Comments POC-GLUCOSE METER 178 mg/dL 70-110 H : TESTED A T [facility] 6720 (BEAKER) (test code = [place] [place] [place], 1538) [address]: Manager Web Application/Techni giana ID = [id number] for RA GAMA ABBI [id number] 08:35:47 Test Item Value Reference Range Interpretation Comments PHOSPHORUS (BEAKER) (test code = 3.6 mg/dL 2.3-4.7 604) Manager Web Application ID Ly GAMEZ MHEPATIC FUNCTION [id number] 08:35:47 Test Item Value Reference Range Interpretation [...] (test code = 37 U/L 6-55 347) Manager Web Application ID Ly GAMEZ [id number] 08:35:46 Test Item Value Reference Range Interpretation Comments MAGNESIUM (BEAKER) (test code = 2.0 mg/dL 1.6-2.6 627) Manager Web Application ID - VERA MBASIC METABOLIC [id number] 08:35:45 Test Item Value Reference Range Interpretation [...] S NOT APPLICABLE FOR DIALYSIS PATIEN TS. Manager Web Application ID - VERA MPOCT-GLUCOSE [id number] 07:41:00 Test Item Value Reference Range Interpretation Comments POC-GLUCOSE METER 178 mg/dL 70-110 H : TESTED A T [facility] 6720 (BEAKER) (test code = MARIA GUADALUPE [place], 1538) [address]: Manager Web Application/Techni ginaa ID = [id number] for ABBI FOX PROTHROMBIN TIME/[id number] 07:03:03 Test Item Value Reference Range Interpretation Comments PROTIME (BEAKER) 14.5 seconds 11.9-14.2 H (test code = 759) INR (BEAKER) (test 1.15 See_Comment [Automat ed message] code = 370) The system [facility] generated this result transmitted ref erence range: [...] 0-0 (BEAKER) (test code = 413) POCT-GLUCOSE [id number] 22:21:28 Test Item Value Reference Range Interpretation Comments POC-GLUCOSE METER 98 mg/dL 70-110 : TESTED A T [facility] 6720 (BEAKER) (test code = [facility] [place] [facility], 153) [address]: Manager Web Application/Techni giana ID = [id number] for JEY LEE POCT-GLUCOSE [id number] 15:52:41 Test Item Value Reference Range Interpretation Comments POC-GLUCOSE METER 142 mg/dL 70-110 H : TESTED A T [facility] 6720 (BEAKER) (test code = [facility] [place] [facility], 153) 174[address]: Manager Web Application/Techni giana ID = [id number] for Lily Christiansen body fluid [id number] 11:15:37 Test Item Value Reference Range Interpretation Comments Scan Result (test code = See scanned report [id number]) THAI (test code = THAI) See scanned report [facility] [id number] 11:15:37 Test Item Value Reference Range Interpretation Comments Scan Result (test code = See scanned report [id number]) THAI (test code = THAI) See scanned report [facility] CaliforniaPOCT-GLUCOSE [id number] 11:14:44 Test Item Value Reference Range Interpretation Comments POC-GLUCOSE METER 180 mg/dL 70-110 H : TESTED A T [facility] 6720 (BEAKER) (test code = [facility] [place] [facility], 153) 418[address]: Manager Web Application/Techni giana ID = [id number] for Re Brad lee U/S, DRAINAGE, W/ CATH [id number] 11:06:00REFERRING : DI COTTON MD....1495Reason for exam:->s/p hepatectomy- fluid collection/[facility]cess [facility] 1975 Sex: FFINAL REPORT U/S, DRAINAGE, W/ CATH PLACEMENT History: s/p hepatectomy- fluid collection/abscess Modality: Sonography Sedation: Versed 1 mg and fentanyl 50 mcg was given intravenously for conscious sedation. Vital signs were monitored throughout the procedure by a nurse, and remained stable. Physician intra-service time was 20 minutes. Overcoiler: Christos Segundo MD. Grain Spouter: None. Approach: Right upper quadrant ultrasound guidance [...] achieving local anesthesia with lidocaine a 8 British drain was placed into the right hepatic [...] ultrasound-guided right hepatic postsurgical fluid collection 8 British drainagecatheter placement with conscious sedation. Signed: Christos Segundoeport Verified Date/Time: 01/18/2022 11:06:05 Reading Location: [place] [address] Angio Body Reading Room POCT-GLUCOSE [id number] 08:48:20 Test Item Value Reference Range Interpretation Comments POC-GLUCOSE METER 205 mg/dL 70-110 H : TESTED A T [facility] 6720 (BEAKER) (test code = MAR[place] GUADALUPE [place], 1538) 49[address]: Manager Web Application/Techni giana ID = [id number] for Breonna Odell PROTHROMBIN TIME/[id number] 05:09:45 Test Item Value Reference Range Interpretation Comments PROTIME (BEAKER) 14.8 seconds 11.9-14.2 H (test code = 759) INR (BEAKER) (test 1.17 See_Comment [Automat ed message] code = 370) The system [facility] generated this result transmitted ref erence range: <=5.90. The reference range was not used to int erpret this result as normal/abnormal . RECOMMENDED COUMADIN/WARFARIN INR THERAPY RANGESSTANDARD DOSE: 2.0 - 3.0 Includes: PROPHYLAXIS for venous thrombosis, systemic embolization; TREATMENT for venous thrombosis and/or pulmonary embolus.HIGH RISK: Target INR is 2.5-3.5 for patients with mechanical heart valves.HEPATIC FUNCTION [id number] 05:09:24 Test Item Value Reference Range Interpretation [...] (test code = 44 U/L 6-55 347) Manager Web Application ID - [id number] 05:09:23 Test Item Value Reference Range Interpretation Comments PHOSPHORUS (BEAKER) (test code = 3.5 mg/dL 2.3-4.7 604) Manager Web Application ID - [id number] 05:09:22 Test Item Value Reference Range Interpretation Comments MAGNESIUM (BEAKER) (test code = 1.9 mg/dL 1.6-2.6 627) Manager Web Application ID - DBBASIC METABOLIC [id number] 05:09:21 Test Item Value Reference Range Interpretation [...] S NOT APPLICABLE FOR DIALYSIS PATIEN TS. Manager Web Application ID - DBCBC (HEMOGRAM ONLY)2022-01-18 04:57:54 Test [...] 0-0 (BEAKER) (test code = 413) POCT-GLUCOSE [id number] 21:07:25 Test Item Value Reference Range Interpretation Comments POC-GLUCOSE METER 221 mg/dL 70-110 H : TESTED A T [facility] 6720 (BEAKER) (test code = MARIA GUADALUPE [place], 1538) [address]: Manager Web Application/Techni giana ID = [id number] for AN [facility] [place] Body fluid cell count with [id number] 21:00:18 Test Item Value Reference Range Interpretation Comments Appearance (test code Slightly Hazy Clear A = 9335-1) Color (test code = Castillo Colorless, Straw A 6824-7) RBCs (test code = 8000 See_Comment H [Automate d 72052-5) message] The system which generated this result transmit kylie reference range : <=1 /cu mm. The reference range was not used to interpret this result as normal/abnormal . Adjusted WBC Count 1173 See_Comment H [Automat ed (test code = 09176-5) messag e] The system which generated this result transmit kylie reference range : <=5 /cu mm. The reference range was not used to interpret this result as normal/abnormal . Lining Cells (test 0 See_Comment [Automat ed code = 27271-3) message] The system which generated this result transmit kylie reference range : <=1 /cu mm. The reference range was not used to interpret this result as normal/abnormal . % Segs (test code = 7 % 41327-9) % Lymphs (test code = 43 % 64664-1) % Monos (test code = 22 % 54686-9) % Eos (test code = 23 % 41687-5) % Baso (test code = 5 % 67068-7) Container Body Fluid EDTA Tube (test code = 2873) Lab Interpretation Abnormal (test code = 36160-0) [facility] California[facility] fluid cell count with [id number] 21:00:18 Test Item Value Reference Range Interpretation Comments Appearance (test code Slightly Hazy Clear A = 9335-1) Color (test code = Castillo Colorless, Straw A 6824-7) RBCs (test code = 8000 See_Comment H [Automate d 88804-0) message] The system which generated this result transmit kylie reference range : <=1 /cu mm. The reference range was not used to interpret this result as normal/abnormal . Adjusted WBC Count 1173 See_Comment H [Automat ed (test code = 74165-0) messag e] The system which generated this result transmit kylie reference range : <=5 /cu mm. The reference range was not used to interpret this result as normal/abnormal . Adjusted lining 0 See_Comment [Automated cells/Others (test message] The code = 02305-9) system which generated this result transmit kylie reference range : <=1 /cu mm. The reference range was not used to interpret this result as normal/abnormal . % Segs (test code = 7 % 94649-6) % Lymphs (test code = 43 % 11058-4) % Monos (test code = 22 % 16062-9) % Eos (test code = 23 % 38547-7) % Baso (test code = 5 % 97281-0) Container Body Fluid EDTA Tube (test code = 2873) Lab Interpretation Abnormal (test code = 60697-4) [facility] CaliforniaBODY FLUID CELL COUNT WITH [id number] 21:00:18 Test Item Value Reference Range Interpretation [...] Tube (BEAKER) (test code = 2873) POCT-GLUCOSE [id number] 18:31:34 Test Item Value Reference Range Interpretation Comments POC-GLUCOSE METER 70 mg/dL 70-110 : TESTED A T [facility] 6720 (BEAKER) (test code = MARIA GUADALUPE [facility] [facility], 1538) 113[address]: Manager Web Application/Techni giana ID = [id number] for KAREEM POWER Amylase Peritoneal [id number] 18:26:07 Test Item Value Reference Range Interpretation Comments AMYLASE, PERITONEAL 17 U/L See Comment FLUID (test code = 4317784) THAI (test code = Amylase activity in THAI) peritoneal fluids of non-pancreatic origin is often less than or equal to the amylase activity in blood, whereas elevated amylase activity has been reported in fluid of pancreatic origin (five-folds or higher compared to contemporaneously collected blood specimen).This test has been modified from the computer systems engineer's instructions and its performance characteristics were determined by [facility]. The laboratory is regulated under CLIA as qualified to perform high-complexity testing. This test has not been cleared or approved by the U.S. Food and Drug Administration. The reference intervals and other method performance specifications are unavailable for amylase in peritoneal fluid. Comparison of this result with the blood amylase is recommended. Manager Web Application ID - DB [facility] CaliforniaAmylase Peritoneal [id number] 18:26:07 Test Item Value Reference Range Interpretation Comments AMYLASE, PERITONEAL 17 U/L See Comment FLUID (test code = 6758153) THAI (test code = Amylase activity in THAI) peritoneal fluids of non-pancreatic origin is often less than or equal to the amylase activity in blood, whereas elevated amylase activity has been reported in fluid of pancreatic origin (five-folds or higher compared to contemporaneously collected blood specimen).This test has been modified from the computer systems engineer's instructions and its performance characteristics were determined by [facility]. The laboratory is regulated under CLIA as qualified to perform high-complexity testing. This test has not been cleared or approved by the U.S. Food and Drug Administration. The reference intervals and other method performance specifications are unavailable for amylase in peritoneal fluid. Comparison of this result with the blood amylase is recommended. Manager Web Application ID - DB [facility] CaliforniaAMYLASE PERITONEAL [id number] 18:26:07 Test Item Value Reference Range Interpretation Comments AMYLASE, PERITONEAL FLUID (test code = 17 U/L See Comment 2012409) Amylase activity in peritoneal fluids of non-pancreatic origin is often less than or equal to the amylase activity in blood, whereas elevated amylase activity has been reported in fluid of pancreatic origin (five-folds or higher compared to contemporaneously collected blood specimen).This test has been modified from the computer systems engineer's instructions and its performance characteristics were determined by [facility]. The laboratory is regulated under CLIA as qualified to perform high-complexity testing. This test has not been cleared or approved by the U.S. Food and Drug Administration. The reference intervals and other method performance specifications are unavailable for amylase in peritoneal fluid. Comparison of this result with the blood amylase is recommended.Manager Web Application ID - DBPOCT-GLUCOSE [id number] 14:00:24 Test Item Value Reference Range Interpretation Comments POC-GLUCOSE METER 123 mg/dL 70-110 H : TESTED A T [facility] 6720 (BEAKER) (test code = MARIA GUADALUPE [place], 1538) 280[address]: Manager Web Application/Techni giana ID = [id number] for Breonna Odell SARS-CoV2/RT-PCR (Asymptomatic ONLY)2022-01-17 12:59:33 Test Item Value Reference Range Interpretation Comments SARS-COV2/RT-PCR Negative Not Detected, (test code = Negative, See 68651-9) external report for linked test SARS-COV-2 [facility] NOY PERFORMING LAB (test code = 50394-7) THAI (test code = Negative result for [...] of the Act. Fact Sheet for Healthcare Providers:https://www.[employer]yes/sites/default/f matt/product/documents/F act_Sheet_HC_Providers_L bmx_MSOZ-DiU-2.pdf Fact Sheet for Healthcare Patients:https://www.Seer del.ChannelEyes/sites/default/fi les/product/documents/Fa ct_Sheet_Patients_Ly_S ARS-CoV-2.pdf Performing Laboratory:[facility] [place] [address] [facility] (Asymptomatic ONLY)2022-01-17 12:59:33 Test Item Value Reference Range Interpretation Comments SARS-COV2/RT-PCR Negative Not Detected, (test code = Negative, See 10216-5) external report for linked test SARS-COV-2 [facility] NOY PERFORMING LAB (test code = 73789-1) THAI (test code = Negative result for [...] of the Act. Fact Sheet for Healthcare Providers:https://www.[employer].com/sites/default/f matt/product/documents/F act_Sheet_HC_Providers_L evp_BKPM-LrK-2.pdf Fact Sheet for Healthcare Patients:https://www.Bingo.com.com/sites/default/fi les/product/documents/Fa ct_Sheet_Patients_Ly_S ARS-CoV-2.pdf Performing Laboratory:[facility] [place] [address] [facility]OV2/[facility]-PCR ([facility])2022-01-17 12:59:33 Test Item Value Reference Range Interpretation Comments SARS-COV2/RT-PCR (test Negative Not Detected, Negative, code = 6451032) See external report for linked test SARS-COV-2 PERFORMING LAB [facility] NOY (test code = 0490200) Negative result for this test determines that [...] of the Act.Fact Sheet for Healthcare Prov iders:https://www.[employer]/sites/default/files/product/documents/Fact_Sheet_HC _Tholwnaru_Mwct_EETE-KnF-2.pdfFact Sheet for Healthcare Patients:https://www.[employer]/sites/default/files/product/docume nts/Zmys_Ytntw_Gjhilssr_Vehm_TCUA-AyR-1.pdfPerforming Laboratory:[facility], [place] [address]FCVL-EYGBTTD METER 2022-01-17 11:57:50 Test Item Value Reference Range Interpretation Comments POC-GLUCOSE METER 153 mg/dL 70-110 H : TESTED Thiago T [facility] 6720 (BEAKER) (test code = MARIA GUADALUPE [facility], 1538) 31336: Manager Web Application/Techni giana ID = [id number] for FE LDER, MARTHA URINALYSIS W/ REFLEX URINE [id number] 11:29:55 Test Item Value Reference Range Interpretation [...] URINE (BEAKER) (test Rare code = 1521) SOURCE(KIT) (test code = 2795) Manager Web Application ID - [auto]Manager Web Application ID - NORMA LordAWJZSFD3004-16-18 10:23:00REFERRING : DI COTTON MD....1495Unlisted Reason for Exam - Click Yes and Enter Reason Below->YesUnlisted Reason for Exam->Abdominal painIs this for enterography?->NoWill this procedure require oral contrast?->No [facility] 1975 Sex: FFINAL [...] MDReport Verified Date/Time: 01/17/2022 10:23:51 Reading Location: [facility] B1 C013X Ortho Consult Reading Room [id number] 04:51:20 Test Item Value Reference Range Interpretation Comments PHOSPHORUS (BEAKER) (test code = 3.6 mg/dL 2.3-4.7 604) Manager Web Application ID - PIAYA LHEPATIC FUNCTION [id number] 04:51:20 Test Item Value Reference Range Interpretation [...] code = 57 U/L 6-55 H 347) Manager Web Application ID - PILUCINDA [id number] 04:51:19 Test Item Value Reference Range Interpretation Comments MAGNESIUM (BEAKER) (test code = 2.0 mg/dL 1.6-2.6 627) Manager Web Application ID - ROSA LBASIC METABOLIC [id number] 04:51:18 Test Item Value Reference Range Interpretation [...] S NOT APPLICABLE FOR DIALYSIS PATIEN TS. Manager Web Application ID - PIAYA LPROTHROMBIN TIME/[id number] 04:34:11 Test Item Value Reference Range Interpretation Comments PROTIME (BEAKER) 14.4 seconds 11.9-14.2 H (test code = 759) INR (BEAKER) (test 1.14 See_Comment [Automat ed message] code = 370) The system [facility] generated this result transmitted ref erence range: [...] 0-0 (BEAKER) (test code = 413) POCT-GLUCOSE [id number] 22:10:37 Test Item Value Reference Range Interpretation Comments POC-GLUCOSE METER 189 mg/dL 70-110 H : TESTED A T [facility] 6720 (BEAKER) (test code = [facility], 153) 82991: Manager Web Application/Techni giana ID = [id number] for DA CRISPIN DAVIESA POCT-GLUCOSE [id number] 15:30:39 Test Item Value Reference Range Interpretation Comments POC-GLUCOSE METER 203 mg/dL 70-110 H : TESTED A T [facility] 6720 (BEAKER) (test code = [facility], 1538) 17942: Manager Web Application/Techni giana ID = [id number] for An toine, Alycia POCT-GLUCOSE [id number] 11:47:30 Test Item Value Reference Range Interpretation Comments POC-GLUCOSE METER 183 mg/dL 70-110 H : TESTED A T [facility] 6720 (BEAKER) (test code = [facility], 1538) 73693: Manager Web Application/Techni giana ID = [id number] for An toine, Alycia URINE [id number] 10:40:06 Test Item Value Reference Range Interpretation Comments CULTURE (BEAKER) (test code = 1095) No growth RAD, ABDOMEN/KUB, 1 VIEW [id number] 09:37:00REFERRING : BACDI VALENTINO MD....1495Reason for exam:->Abdominal cramping [facility] : 1975 Sex: FFINAL [...] Rice Verified Date/Time: 01/16/2022 09:37:50 POCT- GLUCOSE [id number] 07:49:38 Test Item Value Reference Range Interpretation Comments POC-GLUCOSE METER 200 mg/dL 70-110 H : TESTED A T [facility] 6720 (BEAKER) (test code = MARIA GUADALUPE [place] [facility], 1538) 17205: Manager Web Application/Techni giana ID = [id number] for An Alycia roldan HEPATIC FUNCTION [id number] 06:55:32 Test Item Value Reference Range Interpretation [...] code = 65 U/L 6-55 H 347) Manager Web Application ID - ROSA [id number] 06:55:31 Test Item Value Reference Range Interpretation Comments PHOSPHORUS (BEAKER) (test code = 3.8 mg/dL 2.3-4.7 604) Manager Web Application ID - ROSA [id number] 06:55:30 Test Item Value Reference Range Interpretation Comments MAGNESIUM (BEAKER) (test code = 2.0 mg/dL 1.6-2.6 627) Manager Web Application ID - ROSA LBASIC METABOLIC [id number] 06:55:29 Test Item Value Reference Range Interpretation [...] S NOT APPLICABLE FOR DIALYSIS PATIEN TS. Manager Web Application ID - ROSA LPROTHROMBIN TIME/[id number] 05:59:50 Test Item Value Reference Range Interpretation Comments PROTIME (BEAKER) 15.3 seconds 11.9-14.2 H (test code = 759) INR (BEAKER) (test 1.23 See_Comment [Automat ed message] code = 370) The system [facility] generated this result transmitted ref erence range: [...] 0-0 (BEAKER) (test code = 413) POCT-GLUCOSE [id number] 22:01:38 Test Item Value Reference Range Interpretation Comments POC-GLUCOSE METER 242 mg/dL 70-110 H : TESTED A T [facility] 6720 (BEAKER) (test code = MAR[place]ADALU[place], 1538) 02134: Manager Web Application/Techni giana ID = [id number] for ZEB MANZANARES POCT-GLUCOSE [id number] 16:23:12 Test Item Value Reference Range Interpretation Comments POC-GLUCOSE METER 169 mg/dL 70-110 H : [facility] ([facility] (test code = MARIA GUADALUPE [place], 1538) 30[address]: Manager Web Application/Techni giana ID = [id number] for KAREY VU Tissue [id number] 12:39:56 Test Item Value Reference Interpretation Comments Range Case Report (test Surgical Pathology Report code = 104) Case: [id number] Authorizing Provider: Denzel Trinidad Jr., MD Collected: 01/08/2022 11:00 AM Ordering Location: [facility] Received: 01/08/2022 11:03 AM PERIOPERATIVE SERVICES Pathologist: Lanie Jones MD Specimen: Liver, EXTENDED RIGHT HEPATECTOMY DIAGNOSIS (test y1tinBRvZZMqc7peOIOozPVkXiJf code = 3220) MzNcZnRuYmpcdWMxIHtccnRmMVxl qJuqLKReILvnhrVoTCYdnCJvZ5Ji sjzyBTiqIW3rZM1yqYkcfDRakJLn WSLaVkWas6yee345uXDmo7wzHTEI wliwuXt1hRrfQ61hh6O0KzkjX08g dABkLXH0ZEZqACZjwCUnZGBlNOL3 DHJvyRMnP7nySRHhNC4thjncDAtq JEtwOSOnfTB4UBLwtEDnH3WgARRu QYwgYOYwavj1CyKdTc4irVNykCzp MFxwYXJkXHBsYWluXGZzMjAgTElW AIGoGBQBSYYCYCEVCDNOA7bYRUdT YEEBZFKOF58IUeYtoZWvVWArdoXl OQCkKPFhG1RqaCJcPWRwT0UtG4si u55mAHDzqNJgkS04oNCbtOxfLEou h2b8kXCklEMhruMiwjHecxWtyh0b aRCuGRVaRSHtf25wHX25ZNNrprDk QDvuIKL3eE2dHC3sXEZ0brEtGSZz OCBjbSBpbiBtYXhpbXVtIGRpbWVu p0uwtiQgyEEyUE7NAOVxrAwbwuZj yeIgeKYnMT6wyXemLRfneALyL9ob pbWfbrYlusZnDLKnozQvOq9eFZ5r qXltmpJtZ6vuXYMqssPkdc1nOKMn dnEgED93EZV9UKIztJ3tOdSwgWEh THNzjyAdeV6wqTSxZCJvL7Uvb42y dGEkX9xlQDjisA1xQK4XltSlgC8u iV39ADQseLzeatJqswGwpZcmRHL0 O7SysX75BPMsv21nuRVygwIvNtmk KGqwX99kNywmpIZpEAG5QSGyAIO7 iGPhLH3vCGVTBwWza4RnhB1rNPkc pcGbMHDdT2fjkm07plZmhCr7GSRv w6arf8NdDWp2NA9fmQZsFBZ0LEN2 g8BijvNlv9UjqmZ0UvWoOFhvJTZd EFVqMannAOmgnt1jwlukJtSdwdHf w07mmhTroGi4EGYojol3DE77dZCz ADOfTBBtKGP9wCYfEHSlefXyxXSu xGCwi7MdquQ2XJ3yWEG1fQDsjcVz DD5hQMAxgnBoj4GuumIhjQCuML9C XZSfd9exF6dcPQW9PTnbOSMvRVNh cgCcSMQbRGaKYxCtSEZ3LOM8mRvv OIRlpBsvedw4HZEJXK75GOFlCNCp NKKeWRDcyq83TKR0MyXdl2W8FDV7 ANHxSVJpb5okOADjwGBtOqXeZbBb JiBjMmzkkEUlSFClIiCwc4ady946 oJUlm5tkGUQhHpP2oIEgUXFnsDXz V700RBXfCFtgr6sot7MgPETdqVKw p9P8WMTYurkmvWm2oLniS99de2W3 XuazR9eqQCZlERIuD9MfMM5sCYQb Tsh6QSO6XRQ3IPQmGECiX4PqNM8e OGDyfDSgIYo7r0kswKpmFWZjVAE6 e0fgNYmdxnMsVE4qio3enFg8g1xn umAqRCOnMYVjmYQEUPVzW3SzoClt Sz5nkOp0mEgfGihoHEY4Wzm9CA4s le77dao4cWbfYUFrcfvvLbL4KVfd ADHskqfpCGy9PFuiTEJqaZH0KJXi wQLkT3KvFKIzPI0xjpf3MIJ4QUzz OHBsXuZ4UUEmbDGqOQEusEqwMVfk p925XER9WyUhYC6qW5Wvk1X6oS1u kSHdXLJdzYXlXaNxNDMjpv1xeHNn VDinm8AwVIP7pgL8eNYcqWNjTZXn YyA1SQkiEF4ndx77XOCvDWT1ve0s zFRlfWhkpzMjvOEaJWyjC2LoJIEu v300WYWbW0ArPGTnm9O6pmEbZdWl JQOymPT6pzC4POPtIL9ltaqsp2xn UCfcYSclSUNcofE7tmW5JFTzmDMp E6HhaC5xKTJrRH7eotjgj2czNQW7 VCqbONJgVFI1BuQvKIKnn9Nbpva9 KiSan8NqfCSdDIpvL86bk518WBRv xeUkY3gkiCSbthqkhACaiqbiXRiu ygL0ZBDxVMxqqtdgUKUiTFgaI8qa YwZrWIUckYehIQeiq7PuJFVmRGMt BvDkhWCmZXCoXvc0IHFkeCMaGNFk HfWjZ3qxxlupJxUIJJKnk6oqL2er nKBVaFQuO8BsJWvaweVlQMlxOFbf CGPbZXI3VA7dKFLyBJQtjs73 SYNOPTIC REPORT HEPATOCELLULAR (test code = 5765) [...] 1 Additional Findings: Steatosis CPT Code(s) (test q8zdrDWmLRQgfUY3BzAiTAAew0rx code = 3357) i5ZweNUpdCZbCGthlPIyeuHzgi72 xXA6yK04QC6kNVEwVjB0BFMtxhU7 Rqk9ZJPiXJPpbYKeS359e7xdb7jm wpPmzCM5tAwhNTAlhxsqKsL6JKcu OXNfqrlaYWh0CLhjHDFsgTX8WYZj bNNdY7VfWGBlFW1fzxk0SHO5LPww PDFwCeZ9CPBoxJBxHRVulBjvSWiq n518OGZ6EvVpVSCfhrWsfWmvaT4z DqToUIX1BFCjATj2ULGlF7g7BBl4 MzQyXHBhcn0= CLINICAL HISTORY m6nptKZwYXBinEK1RrXyNZQuf6fu (test code = 3356) g2MsgYPwyNObHYgbeIZjhnLllu03 fHW3lM28OV6kRWDfMeS0JHKrpyO5 Ord4JIDnNELcbLTtR328q9uhh2ql jgNipHF3VKOaBUPdX7KlLY9xUZNw yZMdF20fyFRyIFZ2NMKnYZPggLXz MXOiANA8OKLafNWyP5hlLZEmED4p kjoiLEiuSRccSXPwtMR3QHInsHPq O6UqLOXvFYylHJIcxgt0YkSlOf2l dGVyeTcyMFxwYXJkXHJpMVxwbGFp blxmczIwXGNmMSBMaXZlciBsZXNp s56sNOVwec9= SPECIMEN SOURCE v0zuaLIkIHEyoYB2GiPcODHkp1tz (test code = 3377) h0WtySEgwELlAMcivTOydcSdcd65 tLM6iT26OM3zGHGwCrA3INXirpG6 Rfh4REWtAMUozSCcP040i4lcw7gy ttHnnXY1YCOyNGOjE2OtKF0lQOXg eUFgF0ncDYYpTFOxD0WoUU6wQPHp Arz0QAR0SHz1AXWlrHRzwaMdJiEz MYLhwWQrlNJ1WHMzBN0cicreMLst TEdlSIVjqiB5QWAkiPDsA7UgCSYf TY1ecuhmPMI4KXrnSQXxOET1MuFp GKZtb9Ioexm7DqJfvGUyULmisGOl mIuwcT2zBlNfKOjbQnIsZ6faLlZv uRNzSXd7PPJirJRgoB== SPECIAL STUDIES i4kfqAUmVFUbn3rwUWUzhJMfSaOj (test code = 3376) MzNcZnRuYmpcdWMxIHtccnRmMVxz y0QbL2CrNuAoPVxmwvQzLZDfJnuj sdzoIDXiFBU5xtVoHLQdQZbxNEYx CIxhAx8yaIJwaPhlTdLwHERzv6xm ccOMggpsjCv0i7zgIQZsAeQ9aADs HDuiP0bfpfJiiIQyS2AqcWSxiVq7 f0yvHlUvUoN1qJNfYZxrW1givvNu yNLqDWWxSFa9eR78CJFflF9odQHd PPywzpWiBwO0MGbpBXXtIoG7KIFz wODjNFMdB1fqOFAtJBigZLAjXDbo pRUnJRQ2qAsyx2E1eSVttVCalOlv DxYzJtRfZtQAn2CaPOv6wTuyB3Cw TLJySgW2mTZeVNFmZWtnWMYlFFNg tkD5uCclcwQxi64xgJZbWNZmHJBu ExSqsQevWQBdOQWBh5LrjLqdDDP9 xFo7hUmgRsdzDQU1Epl5GT2dhs17 rai5iJbnVHYsuqupXaW3HQlxGAOd nrwfZMf6KFswVHLdyPT7RNZaeEOq A2WlGNKtTM9dovr1SNW8LLteMYWy QeK6EYQwwWEiPVPosNpjAIqrk053 MWC5LqKrVT1yP5Osb2T1iB2fvNVq STSeyWPcStVdKKYbfg8vnWPbXBpk d5LcKTJ2qaR5nFLuqJWmEDGvPJ47 Yduee3KtLklbz9UpD65lcCD9IYtk f6yjVA1gPqD6yvWzBMcmz2yfyA3n IjY8SSwjCD2hKH1wLFJlfJ0sfeme UOMzIqCwffuiTGMtbHqomzOhVy3d bYduXGF9LYtxG1srnC1eBjO0VAyf K3qtvC9iCRo3KZmdgXQ2QGDgyE8c UA5pdoavk2geLUmyJHuaCNAxpiB2 ccV7AMIyrRGzW1HejU2zBRMiLS7l agsun3msVRC8MYjiQIGcZPB1LfJl ICBoo6Ncsom9OpUcw6CneHNhSVaj A90gr060CIVfkcNtH8ojhISbarsj tVPimvuzYMwzftF4GTJbSKWuQPjt XGYxXGZzMjJcbGFuZzEwMzNcaGlj bLitBAisWaDsZFVyZIklH3uuFhZr V3IzGKYrPrXnUMkzNLsuxRJlbMOc sXU8wF9dZA4lXARsgVFkZ3RwSGUx rgKefBPjZAQ2sLTrnJRwXW6yRJex mTPgl6jwn5IeA7adoVphtEQ7LN1c XFLnWCHiHUref7HgeI1cYkubhYRp blxmMVxmczIyXGxhbmcxMDMzXGhp X8plMeDrFXMxvRcmJYynd2TaHQGt BCApXkdrchMbSTr5kyCyEPAkfjxx HPJptNxgkI5xEeBqXgDvGlehVQ3u NWDwO5txqSHhQOHkKRPaR3qdEpOg lP5ctKqwYUeuFjAiVjZpUlWHw352 bo6tZWGaoHSbdhZAyMQpzV8wBBzt PMsnFFvtxDHwLLoec6auCQEvf2m4 aWIxHQIzxyXxr1tfEXigwyNqWEUs tBRenGEeVBKtr23gBSjljQyvrMdj HFXov0WdvXeye7HnEpXyLUlgk6Fk R90hzBNgoMZioBbcBETkibZlYXIe h50ct3nqKHSjNjS0hRNsoMC2qSHt aATdh4PsbLwhAKNux6anYQShet4l nxlewZTvc7KkbD9hkzduNSmvaWUk uyFeDBSnc2x1sNJbTMOgENWkLYgm xIs2GTOwf455fp2ymoA5bZRnWXC4 YWlsYWJsZSBhcmUgZXZhbHVhdGVk XHBsYWluXGYxXGZzMjJcbGFuZzEw MzNcaGljaFxmMVxkYmNoXGYxXGxv C9rlBeBtO7JrHKMfKlQeiCXjV9ns cGFyXHBsYWluXGYxXGZzMjJcbGFu ZzEwMzNcaGljaFxmMVxkYmNoXGYx WLqtQ9geYdHpJ4FlYYGrUgBlTUwx bGFpblxmMVxmczIyXGxhbmcxMDMz IWqaI1rgHaRvGZAbjTmvQDjvs1Wc HEYoSFWnZiyyecIiXJr2shYxBBWy clxwbGFpblxmMVxmczIyXGxhbmcx CUOaQCtgQ0xbOsWoAWRzhBaqHGqv r9WkBNRrROHgBmwfchTnBEtepWLi e4kha4MzK9gxbHyzjXH9SLDvB4zp wTBwfWH3GUW5cR7iTWfqfdLoVOJt r3BmNEMtJVFeSjY8gP4jGAQ4VuPT dWtlXHBsYWluXGYxXGZzMjJcbGFu ZzEwMzNcaGljaFxmMVxkYmNoXGYx ZJonI0yjBhTwL3WpGGWkNaEixXtn LOhuYWw5NnlugRCbynhuBLveyhGl PVxpqmaySXAePHyvT4xgYnGdCHSq rRvrRQenw1RfANIzQFYfLtmoghEf UOUiBSRdqOGqaDFHBI84SEYnHLRc tOtrnZ0tnYZKCPYghkC1p0J9QOqa CQQrYYy7KSbtvhLyHARrvZ3eEEQp TP6aXKu5eoVmNYLmn1XkSL1aLOCs cOIvPAB4HZHfk7HmP8Tqc9WsXTKg HCEcae9llpBtYzBIeOZeSUSgry16 CCUxWU6pP2rdMXJnTMHoikVawMOk t3QbAIIucTX9gHDkQY6SRvBPu62c OTGfGFSDkbSnGZMcdQsioKV3iuS3 bO9iZwWVdYNoPeQDEKqfwsXgCXMx by3qkpQvMLLgPTZfs9JiaHLkySFm stIpG1Kme6LaDANhre22AHwguDDu pc26FR2sI3Lyt9WywH0rQXraOXBk v0IewXLawESjCJZbb3KqG0orjeci MNjkdLQaiF8yKKRxRSp7EUAkg8Yf EQFea7UjGdBpcvNsCEDjUPMvYTNv mV76AXE3zGdhhZfapgWfBX9oCFSv plRhKJFmAUVgbP2gGTeonqAnUJWx xoM8b9W5LGqdWOCopsQwMispKOI2 fwFjxcO6pINvH2dtnfleVDwjHKYj n7NigI9twXVXnKDgb3JteYHpgXZA wOOiME2xhfIiKN6aFLQ7DAddSHDO YZVvPWlkOTBgAJY4BGpyNlfdRBV9 edPyEAQhw4HtMTatM7dsQ30nhVgi mHy3yPTjkKkigXXllMFhPTTznpS7 d7O2SBDcp6NeduihMFKoSBevXXFw XGZzMjJcbGFuZzEwMzNcaGljaFxm RlegCiLkDUPkCYccC4itSkNhRpEo EvqhYZR4mZ== INTRAOPERATIVE u1atfTNtGWZixDZ4GkGlRIYuy6qu CONSULTATION (test a1UzbAXhnGQbWLytbWXppsJtxm80 code = 3369) cJR3iR32NO3rMJQiVqL5OYQoysL0 Soq4GZUuVXWvuYHfD923v6fjw3xa qqLaeGP0zRahPTOxrcgkLjQ9SIsx ZLLdthtwUTx4PHppHKZueHhfPBhd YXJncjcyMFxtYXJndDcyMFxtYXJn ZulwHCpwZGAbTGL2HFebl747DWM1 NGpqI9rfkT5oYjO2EZrxH5pxhM1k BDj4AYglVHZvgSF3zlvgKDyjAJAa uuC1itviFRfyTXBipRL6bgtbLUda QMHcTaV5xbxpWCorDAVqQTPwKLuf HZJpWqBlOHiUHT8YPQOjXraHEJFe KMZKTSKEP8VAZVi7QFnwhdBvJLzZ IMygCXaEUtFLZJ5VEWEJBUQiQEJT KX1CEMZHJYCIFfWDBaGEGNDYAZ8E WzTlbYkaHIRqZNIGSj4IEF1ABTPI ZRUzWG7OXIPJUEnwEbGYKGTCFIIK ZQXOVgNMNSoEFPSOFQRNME4ymZqi ZSAtUkVTVUxUUyBSRVBPUlRFRCBC OPYAEySPVWmYBQYIGIODMMnCS3Cy H88rYa1zQI0nOXFvWCHFLSMgYhXn CB7pcZMuxE== GROSS DESCRIPTION e3xjhQFyODIrtTO2GeInKHFft2vl (test code = 3366) g0RwgGMgdXFzOUnpgSLhurJlja34 pYG2xG12CS4cSTEvIxF5NBOdwkL1 Ktq4ZIJfXAYjlPXjZ108m7ynb1hx zyDqtQU3qAvgRLDjdkrtNaU9MCcy WOUlnzbqHLe6AGfkETUdpFsrGGzq YXJncjcyMFxtYXJndDcyMFxtYXJn QuvcTCsfILMuBKA7CVnfm108PQD5 BTulL4ftxX2yDbL6FLjpP6kqzL9o GYo8QTbiPMYcbWH5qxryYHjiOVAf ylX8oaeiZRacBEWdjTU1uprvUYme ZFJxVoY9lvasBMkxQBZzDQZjYXdt BZKeMfVwXE4eSRSuV3YzfaBnBEGh ZTIeMCAdxcTfkp99IO2yu3ObsCru biBhbmFseXNpcyBsYWJlbGVkIHdp fHpghVkaVEHvjKsvztKouuEmJA4a LITbL9Tft7Pag89tqiUvIxZtKIJx AZBsCKs0RF3sJSTuyzaoeVDdySDb HTMdM5OppUrgNUevBKAgELC8GRYe OBZkFX6sSKwzGWXeJNQ9UHbrMXQh sVSaNLD9iQSwCPyevJV8KAD4h042 OzZqXUhzRFVquOB4eEIegWShsUGi PRXbbJ8fcSjjXVcqwNVtbMMvlnCk AGlmwCyqlKSgMTA5CrPcoCW8QhJe Q60pwEtku1LdY75svvZvMEkhK2Po sVWedZq4IQE9P1jzazYrCVOrDKNe XVFot4GgfPCcxRVnHLVfxiJbSWH3 uSN6MLlwLCUvVgSqcEEgvq1pQJSk OYJnPLBkN8Lsl14pdDOqN3gzXsOf T2PydNdewokbDgYnRZXuHOewZLUp VP17IVdrVW12ZMwhSt65KZVvVTVe jz40SLjas6zrCA9sGEJlQMWyLOO0 eTczkonuTZXlO2Xwq4CoZGSxAABu UFTwGWcfvAmng1Potq12nbYubevh Ojhtga7uuZUgcYjrhILhauQrPyF6 kEslSpK8tYZpH6Nny2BrJQxdW0Tw f4RloVTwcVUeOICrOTUjAGzrtv8p xdYns0Fzdc12xgWstfcbmtTuY2Dx JZB2bfHcFWsgRWGcJxQyxKJtra1f PPJnSOZ2YGGrbXvpvrFiJTVanN7w ZOzoZUPfSvIiuVWsid6tFIUwAWHo XKXmE6Axa90suZItI2zhDEArhpMh EW56JZBeAAYhe95dsYnrQQDrn3Jg LnydWIHtnQDuHJFyqKVpIDDpzI0d FUBAGYJspOAjm9QewOZ1uVJgKKSw T5Mmb33xz4UqxRbkKX2ab4QqpEDe SL89jWHcnNkzSmWbekXhEENqZKGb IEZTLiAgQSBzZWNvbmQgcmVwcmVz WE73EMQugrGxp2IngKyvsjLgPwS8 jMMvnIJkuxN4ccXfuC9nZPP0WYYh s9ZraFbmufRxSJYvdM4biKKoJA72 aXJlbHkgZnJvemVuIGFzIEEyIEZT RrNvCFrcVZIviZOmiksaIpS1zmtm cl0ndoWdHOfqweBkECJjwtHsN5l5 xNLwaCBczALtZTExk0sgEKSeGHVb QGQjdx2dDB0zz9NtYuCzIu0fr7Jc FLFhVFrhP3NllHUnyTFnhR5uxnMb phNgV7Ivi8ZpkBHlrPCgMYCjCHDm WF8yKMUaL6Dgf2CqlAxbdP8zxdFf rIJitpC0WFpxub1hKIJhnNYiv1Wa rRM0dZKaENOkO5Ugo82aNJUdJVCt bQItkYB3ZVJmNSGcSl7axG97jfmn qHBmJFUfgulkWNEyIB2vDGQfAODw cLXjLMAlh7GitSflsaHcWSUmiJ12 IEJsYWNrXHBhciBDYXBzdWxlOiBP rhKhJ3EqkRIbJVZrp3God4DaufUu F4LkOZClcIRmP3mdJbZZaCMnACCe bxzsNXYtO4NzqFfwvwVet6XvENGy fuGHOYWRZqcgVQTvfwP5akE4brti ik3qjvThAQxaejYtTGKwkyBKIoXU KjkpMXKzhoL2jpNhWWFwN2Koj98t eFLyC9rcKLSmcsEQQt7CFVsdZQTb cpF6kaP4QWUwoWmcvlWtVDUjvF0e fZDgFIG2BNH6KdMURUXqtGhgsjDa ljSfOwzjBATibGA4HR4duuqucyRw TD7oLcYrTJawJTWhJZckZQLhXczz NDVxzgX2mxWnFRYhI3Aee63fjYYq S0thIORcfdRCRFLfRHSiWUQ4NL4b u5SbzE4gM2Xtv4FgTVCkprPkhgCr ZOI1oS4kJA1lukawvemoCYYwAESj QM5MJWW0CrYSYUBrGAQkICHktNN4 bGVccGFyIEEgMTctQSAyMTogTWFz heF1nsG9ckbfqq7stuHpHLgwcvQd PTUagtCZFVFdKfOSkhshvi6kiuCh IGxpdmVyXHBhclxwYXIgUGlsYXIg QXJndWVsbGVzLCBQQSwgSFQgKEFT D4GyOKOgog6= [facility] [id number] 12:39:56 Test Item Value Reference Interpretation Comments Range Case Report (test Surgical Pathology Report code = 104) Case: [id number] Authorizing Provider: Denzel Trinidad Jr., MD Collected: 01/08/2022 11:00 AM Ordering Location: [facility] Received: 01/08/2022 11:03 AM PERIOPERATIVE SERVICES Pathologist: Lanie Jones MD Specimen: Liver, EXTENDED RIGHT HEPATECTOMY DIAGNOSIS (test b6mpzTSnQHMvd3xgGPYddEYpSzRq code = 3220) MzNcZnRuYmpcdWMxIHtccnRmMVxl eDkzFHYaAOmhfkGuSNMbiULkI2Ok crhrTLbfFL7xDA0lyJfxkVSnuIPa LZXbBbTpa3ihn045mMLgd5qpLZLF mlpabWb1rDxlC09mx6C6IbquC37p qGAlXEC8TZVyDMOerMFyMAPeBDD2 VBLrdXThH3fcUUGaBS0rewjaJKak PUqfIPFalIY1CBXajSXiC7BnPYFq HDipUDFzvei9GyGdGg8bbEYzoPyj MFxwYXJkXHBsYWluXGZzMjAgTElW EMUySEQDQNMCIBCOWCDDJ7iNHToK EYYEBTMXV56MCwVexOEaPNAdsjVc RZThURHcB3IzxEFrBFNpU9HfN2pc c06qHWWiaGTzrT06mUWpnBdqZNux d4n7iWDsoGJqqxCdthEzuaCshm6k yMHyBHVvMRUrt15uAD84QYIcbwIs NLajRHQ0dO4jYV4kPII6laIeNVNh OCBjbSBpbiBtYXhpbXVtIGRpbWVu y0eikxWiaEYqST6PRSDuxCqnhfVi auQqtFIlFV8oxRfrKRfpnWXjP8rd cgZlsyVlavVnFRLobvYyQz5yDR6o eNdnamKfX6zpBBNbwpFvfy1eEQPk xwKhOV13PYS2MIPwbI3gIdOhzEFy LTDcozKknI1dqGKyQHLeU4Oac54x jAUmT1xjIYsorI0mTB9YxmRprH6o sB48FSQnaEijmqZiabTvuStqTHE6 Q2YvvM93CSXwn40psJQonpYpQvnd EZsbI36zBnhvwLExRWL8VUAkSSS0 rNOaWH2bQZMCVbOpg7DnuN9mFKwp kcToBEAwN1vvfx94fcAurBa5YCZh z5bnd1UqWXr2WH5jtGEbGBL7REA9 n5FcylXqs4LonjA0DySxSMquYXIy PUMuGdheUEpqvi1pcsynPnGvtsAh n08imnAyvWa4EHXtfle6IV48lQHj VZThCSIhPFN6aETeODPxvrXzxOQf yHOxw7WcwxN0LZ5oLEN8uESvlmTd KH2qICNxtuIlk8YqwtBfaFXwPL5T JUYol5caS2azNXV4WOyiDDVuYNPt tuXmQKImFHjJRdGuEVQ4QES5pTrx HRNivZvowuc8XQFLCZ27AYXxTDHe KQIpLWMkhn30KDM6HfPpf3B5CSN8 BMQsZWGds0xtMUWkwMIpMuYyFkGu XtNlDiefdOHvMIKlYoEvc4kje827 eRKig2vsQWYgYdE1uQAbWWOhdEMn O004LXKvMLwok2chg1TkIDFfxBGs r5B5BUUKxzfjdMm7tYjwG57ly7H3 WuevB3gmDEYwAIWcJ3TlXW2bRIUj Vor5MTS5NEY7MJWjYGRwG1XzMB6k GGXotLLdJUt9i1kblZuyOGQeOFH8 g5reGAqqceInLK7npa4ddFi6r0cl fhMwPRLtZBIqcBINGJYwS3XktSzo Za4xlAd7fEciHhbuGXP1Rax9CR6d vb03vce4gGaxFSGaofweGqH2BMrm LCXkmenfGXp3HFyaIEQiqFX0FZAj zIJuU1PiVZFrLF1njgk1AAQ8PXmf ASBfVkX0NZQznWDiOKKoeOjqVRtb k396EDY2PnZgJF0wB2Vmc2U1aW6x bABlWGIxjJBjRnXaGKFauy7kgJFt SQezm4TmYKN9npZ2dLCrqQTiLXBk VvW6OMecJA3bdp63WCFtHHC8en1l rHLiwKekxqIxyYUqACpwD6GqHCRz i176GZEgO0DsQDStp2A6pyIjRlYf EADxsMJ0rlC7YDGnKG2ugilgb1bd TQxtHGwxRVIqcfX2ryX5NNDilOQm Y0AfsM0jYHKhGL3vbmbwe4ljGPW5 CYhyHXFmGHP1QjSsWPKqk0Zffxo5 AnLkm3XfzTInYNoaX18vv663IBBe geVgJ4wrbRAlktthyDBmlzwwAWqz ogM1VEPnXPvtccbfAYPhWLpmS5pt WmKxFMOjpMxtBVvcd9BlEGPgGCHu RpNooBHkGAKsXmq7JVLepMBlXKUr KfRvH7dgdttrFtZCFVLhn9sgL4vf hJBUzLYlO4HqYKcyuuQyNEugOBeu IFDkMNJ6NT5oHKVcJGLgmv54 SYNOPTIC REPORT HEPATOCELLULAR (test code = 5765) [...] 1 Additional Findings: Steatosis CPT Code(s) (test p8zcnSHhSREnuBJ1VdFbUVBof1ss code = 3357) l1DdiDIedUZrUWldvKUilyRlbh27 sYN6fS34WT7dPMPuEhT2JHQajdN2 Gvb6GHYhMURdwVLwM798o4aqr9ox gdFawAM4yKleILDymhlwBaO4EIvm CQNtzdbeQQl6HHmzITUugGO3VXKw jKUqW8TtIXJsOZ6hrye9WNL6GDpk PJIoUyF9CBWhbATgVEHknKkiZZea h350ESH7ZdFtZYFaxiSkdZwxsS3d XjGxZTL7ABBtKOs2EOFqC1n9QHl5 MzQyXHBhcn0= CLINICAL HISTORY n1ifcNLhKMNkcCB6LrBuTVRmn2oc (test code = 3356) s1RwqZZaeDQtZMnqhXMioiTncr27 bSH0eJ73LQ6eCVBkDbK1LEYikvE1 Bgi6YDDcXCHgoHQcX919u3pav9cq guEjyRU5CJPqLMUsK7VyZY2rQHWi yICcH65ydZMfFWE6FWKrACXeuNJz REWoDRY1GTKguXEuY6qmARNcGK5y vabxALhgCLvdZVRgcXR3WQAidGQr X0ZmFURkGYlfLWCsznk1NkJmPh7h dGVyeTcyMFxwYXJkXHJpMVxwbGFp blxmczIwXGNmMSBMaXZlciBsZXNp m74oWNMsaq9= SPECIMEN SOURCE z8twgFUdAVXqqTZ4UcYiAIObo8im (test code = 3377) x5CxqWJlzHKbJQlckUKxmrCsxm85 fYO5rK71LJ4vSQObGoR8CPGjdoC1 Yjk2UURzUDGbcWIeX521d0jzb0hw nsTkyPE0BNSvXNUqL6FyWI0zAMAp xJIqJ4liEYZwCEPbY5BlMS1rDLYm Iru3THR6EAw8HIEahDQgvgQpTjZb NEEjwSMvqLE8CBPgGT2hvjbdTTce GJebYMGhjkJ9AWNouZIvJ3ZoPWPk ZY6eibagODS7XCiyPFGzZAX0UgHc LVPij6Ceukl0PdGxoYQiEJrkxEYw mRsqyI4dDlJoKHwsVqDjH6reQjJt oLQdKIp7JFNhlSWifW== SPECIAL STUDIES p2pidXUrSGUxt5vvCZSqcRCyQuNo (test code = 3376) MzNcZnRuYmpcdWMxIHtccnRmMVxz p0QpD0ZzCkErBHudqzAoJSAqPgjs tdbmYXDzJSS8seUnFCEaRBrkQJAs JGjcQi4vuKVhdVvgIbIqNOBlv7ny vnQRqsidtNq3d3ydLPKfVnK3jZCy QKsnK2htgjQvzOUeD6TnoYHzxDf6 g0zeJjMxRtZ0pAYnJEqgC7cydtSd eMFuQEMgUZy9pL95NJOtlH0ocYCm KDaykgWuYlR7OJmyLBTkYiV6LONk xJHrUFQiW2afKDVsDDsgDYLeZQxz hRMdLXU2qRzlw1A6qBPgoZQxyRjp UzIgLdTgVnYOy8GgHEs4eLlhJ5Ii BFDjRcV9qRPcUWMiPTjsMLKsEYZc mjP9jIdkzbVom23myGGrCDFcGXQc DzKtkOfxMNOmQAVZk7KldQtmGDO5 lVq3mPbfUdbfPZE1Hko8MN5ato88 aik9xYenFQLxqgqeSmK3KImwBFVa wqasSEm8AVttTSVazOL1YKOhuNBa T3MtRSWbNM7oirh8LKW7SQdpAIGb YjN9VWAziBPfOPIhgJccAMhid957 PUL4ArSlZV2dK3Pai4J3gX8pvEAy NONvdLYaSnXkBRBrwv9iiOEtXGsw h3WwAHO0uaB5kSGymSJfWZQmUC76 Mtrjq8CmVgsus0IdZ40aiPJ5EWlj o5rqKB2pWkC8knSwOJwle7kzuD8g BeU0POhoEG6oVP4bLUXkdA6rffrw DTUgUlAdoqtxDIHifPskhbEoSh6f jDfzGZK0QHplR3nkkZ6fIqX9OIcj F0jnbR1gMBp7WHacvPV3EZQnhV8z QN1gzjfdv3jzVBryLQrkAXLuowK6 zlW2QRGtsWGeC8RsrM3nEMIbNC5q tnrro7lpEGE0CZusPXUgRTS0TbAo VKHud0Geyce7VyTzl4KnzSUmIJos L96zv961HKHykrIxI0jkaXMnmkds vKYoxjkdNNfgpyY9IPEdONPpVQkw XGYxXGZzMjJcbGFuZzEwMzNcaGlj gExoPSbtKgOwPUBuDJfgI4ezOvHc K9SxUZEfZzTbMEmkOUdosFTptGMr tUM8rM2oZE3kCWHtjFPjF8ExISGe cjBpbEXjOXM4gJCsvSMfQA0vFObr tOVgr6xqt0BmH6tjcGzqlMZ0XZ7a NFAcEZXqCOvmd9ClwG9eUojejEXe blxmMVxmczIyXGxhbmcxMDMzXGhp I8qyFfUrWJWyqJynSBjmd7PnVLGp QANpTdougxUrGKo6rfGgSJQjlpmd PAIynBmdwK4jIsKoYqIvFeqmNU8z UDBpJ3nioMXxFLRwIPMdJ9woJyBh cP8czVbbMRwcKfSdJdLuXrNIh406 tz4vYUUtpPBdnnHAjOVggR6wUOlh VDvfJMsitWObALccj5nvIKJwb0e8 nZHyCNZfldOot0vmTOkxcbNdJOZi fHEfeSZsYIHhc83sHNxarEczgKem ERKih4NmeVnsc4JmJiYmPJnwo5Ld N67vaGEtaJRpuUanADYyqcOoHZIw k15ml2gyWHQbSsB5vCXrsVO5rFQh vAZem7XveFykJPTfw9tqVFKvjm0w nxbnvCQza5OoyG9npofeZTfulZRx emOrSRQyb2i3zDFcJZAaIKYoKBng eVs4DDQui644wv2jorC9wIDzIYM4 YWlsYWJsZSBhcmUgZXZhbHVhdGVk XHBsYWluXGYxXGZzMjJcbGFuZzEw MzNcaGljaFxmMVxkYmNoXGYxXGxv N4kmXnPrM9ZkOZJqUpYhoFTyX5fg cGFyXHBsYWluXGYxXGZz[facility] ZzEwMzNcaGljaFxmMVxkYmNoXGYx VHloB7ubNePsI0EhRATqZiWuPJfe bGFpblxmMVxmczIyXGxhbmcxMDMz WVmwX0zeDgQgZGOgvJekISfar2Qg NNGsAFZpGnagayZjJPp0lzYiMJSg clxwbGFpblxmMVxmczIyXGxhbmcx GHWqJKiwG6zySrRgYIMnpFapXWvc p2OjIDQpPSYmJgbgwwMcPOebhORc i1xzq5WaR1rtoXneaRU8VOIvV5ey wOYjwGA9VPW2nX3aRAqitsYlNIJm x0LcSEQgPSKxJyG9vH9uBQE9MmHS dWtlXHBsYWluXGYxXGZzMjJcbGFu ZzEwMzNcaGljaFxmMVxkYmNoXGYx ARvmT2vkGfRwA2NgHIYrYfUheBfp XMmwSRg3KaemtHWmoqkrIHqlquJy IRaxvuyxMRFiEWudH2yzKbHjZURi xAezEHpyt5ZcYCOjRHJlPlfjzxZv YUJfJDIkfAPanKNOWG11QQNqOEDo yFmcyS7xxRNYEGVswmV2q8E3PFwo TOQgDYb5TKjawfFqKYTgeP8lZSMo SC0tWKt2omHjXRPxj0XaIC7ePYVg zGCmKQG1FRClf6IrS4Cya8OuJWNs BRQiva8akvSoHcUGwUEuXFOkxv03 CJRpZI7fO7lsQSXxERSeilIbmBFy d2LuMMZpgDK5uVVuAE3FZtTKn91o HLSjXAPHakOiWTWwyYwszGZ4cjV5 wA4zGzLLdQXlZmKENGjyyuMlDUIu ux2buhKpDTJyASIux4KxhMYuhMNv rzDsU8Vyu6ZkXJXoof19FFxnlYIl nk32KU3iG5Foh7ZlcO8rRBajXIHy j4AkkTOpzVTfIPZll7ToR9yhpqgt UVcwvKCsvE4kWWXzUWo4POKay2Yp KSTun9SlIrPimiOeXBZqUSFkPKAp iX63PSC2aSmgwAdwyzPmTV4eQIHm xlDzGWWcMKRxvA5xVQzdxgWiIPTu kcH4i7B1HLmzQDCxyvAqVfxfUAK3 ubXqoaZ6kUPcG8tptryqXXgfKUCi y0JlcW9ilXEOmNYnf0LwhQCktRHS zLRfVV0hvmCgDE4oWUW8AGtrQNKP IZJjRSsaMLQsFHS2USvvWmtsFNH1 sgNhLOBwy4GzGCnoR4awK76aeVmj iTp1gOTtaZwfhIEmvAVsGUCgqjT2 v4G1XQPbf7XjagyeRDNjOTypQRYf XGZzMjJcbGFuZzEwMzNcaGljaFxm HqkbDbYoZRCcKJaqF9dyEaWsQvQf OeufXCF8wM== INTRAOPERATIVE u1zhrRZhARWqtGS8SpUgEDQlq4qi CONSULTATION (test t0AvdPDfyGIhFMlngDPeumVukq62 code = 3361) zNV1bC24FZ9tHOLgZwX0QPIzynJ4 Lil3DSYbZLCuyYYaM660u9iwh5vs idNmmNP0sHjaGYDakmpuJsW8BHzs OPUljfqgAHc3BLsnKHPurKzxOQvy YXJncjcyMFxtYXJndDcyMFxtYXJn JsqnFNixBDZwHPQ5AJdzg057SEM7 COkmI3lqjR6mByT6MSlvB0zpyG1s IFf4INrzDARmvPX1vlyaDHrjMGQc vrC4ycxyVDtfWZKxmKB8cwdoIGdx CXBzWxU7nraoYOzkXRGbXDHtZDms IUOeIjEzHDzDMR1OGQTrZnhCVPFz XTLOMVXGX4LWEWf9YNridnAzOVxS ZMdsGPjOVsLPWJ7QNTLQQDEpZMHH SN9PMRFIHPKXYfECLlCCGHAJOY6A DhCgiCurJUAxMSDBGz3QWR8QJAUT AWOvYC2LAVPFVQoxXhZQFSMTBVLW GUTVBcUTHRkBIEXWTYATOH5qoPoh ZSAtUkVTVUxUUyBSRVBPUlRFRCBC UCVGRmCFKToFSSLFXGPEBDuMF2Rn G41tVv6oSQ3kTRFyJJUDLHRfVkWe GL8cpILlmA== GROSS DESCRIPTION t6pvcNMtFTAguRT2AhRhYAOol1uj (test code = 3366) c8KyeNEmjJCjPUhcvCYfsoUcuo81 zON6eT38WJ6oUORmGkZ8VLVtboB5 Bee5QDDgIUSlqSLyX084f8anl9yv ypHatEL6wTxhGPCrkzrhYtV0ARkq UDJmjpojMGq1XNefSEThvKrwDZyr YXJncjcyMFxtYXJndDcyMFxtYXJn ZkxiROetGEFpSUT9DYcdy228EYF4 KJxgC8rshC0mCgO4CJuaX7cofU9z HWe4PZfhFURtpJU7ezywULmiPWNt jkN6jzcbEXyrXEYztFS7lphuJNev VKHfOyS3nuknCJtkJIDdIFKuUCov JYGrZfBdFB9cODXwJ8RmoyCeESDn BBFmRSEcqeUcjr51VZ5hd6GhqNzl biBhbmFseXNpcyBsYWJlbGVkIHdp kDanlOagKRKmtHviemNeokIrJB0d UNRgO1Ocs4Rhk63ofbMdOhBzKBXh NOLdORq2ZP2jNCNeqkmlxKRfaRCi RIMvW4LejJohKMlyFZRsGIA5NYDj PZYrJB9uYAxgLVLvIMQ1CPuiIKRv uETzVUJ6nBUbRBcvhNM6DFN0f567 RnVcJOaxEBXomZE8aEAvtRDeoBZh OLRwcR8yfRimPBrpbJKogDIwgsZo YFqgyOjlmTCjKRP6VdKtlHL5WaGg L25qbXncc4GqK19nslHmRAunJ7Ne tTKqeHk4LVZ3U5vxfxPoBEPiPMPb ULKlg6XbkDKdfJOiEPJsmtSvQSP9 lLL2LUtrGIIgDzMakXVuwu1nGBZb RMNlHENsS8Zll76nyZLmF6guOaZt T8SktAgmjuvzUtPyVOHgUGvlOUYj HR96PLawJZ29OBfpYc64NJMzYQZi dg02BIupi9heJP0yMJNzWXMiRGA5 rQijfrpmUQEnP9Ybu1WwMMAlDAPa CLUoDHkeeEjzh7Gbqi13ccOcxcpn Ftgfws9heUCnwKggrSPhijRwUoK7 jPmtVeB6qZMvM3Tpo1RdBVymG3Tz v4UbiPTfjSHkYECdJYOlULhgov4j toNqh7Oqsv38wcPjvwzvmkAdD1Bi NWV9raZgMRraDIOkVuQfgNYqrc5l YCRfCYJ2YKFmrGxcvzWhAVGwwU7l ESlkEUZhNiXqnWCuei3dIDIrVCFa OMAoE1Dun49obDNkU4rjBSWggxUm MR55OBDkIBThj26frMreMTQng2Fn VemoYSMbjNYiTWHupNXfOSCqdC5f ADGNSMHivMBgl7IgeZC6wIHrEIKt D1Hlu96ab0JijWcsWK6zb7ThtUCp YS53tAVzbAtcDeGiuzJzFUEtQOMc IEZTLiAgQSBzZWNvbmQgcmVwcmVz CG28IXVmxrZfm5SirJkmbeMkBaQ2 gTNfsZQmxjR1flCjoM1jIOQ9TZAu r2CajSzvjyVaXBZrdM8vsXSuVD44 aXJlbHkgZnJvemVuIGFzIEEyIEZT ZjOmGVweLAGjvMUsvvrjJeW1eehj jz3euwPdKKicfbYzSUAysxDlN9g6 wLNdhEPyzPNjTMRgy2iuHMJeGGLb THEaqz0aLR8fd9FwAoIgUj7tv5Sp ZEFzJZtfN1PnnHPnjYZufX7oixAh xxZeW1Tbp2QhlHRwkPHtFLXzKSYu JB9cSTCiH7Cgg6UcuUzpfI8zhmPy nYWcozI4OCjjsl9pFFVrxEBey3Px uEG2yLDuFURfX7Qol67zRMXcGIJo vFFykAQ3UYVdRJDdYj4boD05ensx pQEpXPEncotmHGJmWX7dGKYdEYLv bZLjWUDvn6ZwaOyscbCgFUDqfX69 IEJsYWNrXHBhciBDYXBzdWxlOiBP ncSuB4VqdKVcHWGqy7Kve0WijcKe C3BjWIJvoXHhX8bbZxJHjDUpLSLu akmfLAIhJ3NwwCstkhByn9TkYIGp wgBAWLQCZvleKCFhtgX4moB3bkxq kr7lfkViJSwcaoRgCLGjbmLNOfHU XesiCTQpklC9inJkDHLsD5Ict22p wMImK8ygIVCefyJTDj2OQAnqKPLd cmA4ndR3KCIfhHrfqaCfHKXygW6d oLKiMIT1KBJ5XjRWFZPedSyabjEs oiKgVrzbVYVfsGV3IB7iojszmmTp YT2aWsFdUZziZSXhWChfFPPaVsjo BGBfnbD5gmXtXBMdC6Lfs88gyHVs V5sbIJVyfeYFLWCfMQAyIDE6MU2y c7NmdR6hA3Nzj6FmWLEjszWeryDj HVT5tT3iKX7zjimxpaccBIEhOVTf EJ8RCLJ4FsWTSBYkSSMlLZWfqKZ0 bGVccGFyIEEgMTctQSAyMTogTWFz waV7zmT9srrqfc7ldsWyEErfmkGv MWJpszBYFNBhZxAZuwqgbt0mtqKn IGxpdmVyXHBhclxwYXIgUGlsYXIg QXJndWVsbGVzLCBQQSwgSFQgKEFT K8EjOHGdxj8= [facility] [id number] 12:39:56Surgical Pathology Report Case: [id number] Authorizing Provider: Denzel Trinidad Jr., MD Collected: 01/08/2022 11:00 AM Ordering Location: [facility] Received: 01/08/2022 11:03 AM PERIOPERATIVE SERVICES [...] garde 2 Signing Pathologist Direct Phone Line: [phone] signed by Lanie Jones MD on 01/15/2022 at 12:39 PMHEPATOCELLULAR CARCINOMAHEPATOCELLULAR CARCINOMA: HEPATIC RESECTION (NOTE A) - A Edition - Protocol posted: 04/11/2021PECIMEN Procedure: Partial hepatectomy, major (3 segments or more) TUMOR Histologic Type: Hepatocellular carcinoma Histologic Type Comment: Steatotic type HistologicGrade: G2, moderately differentiated Tumor Focality: Solitary TUMOR CHARACTERISTICS: Tumor Identification: 1 Tumor Site: Right lobe Tumor Size: Greatest dimension of viable tumor (Centimeters): 5.8 cmTreatment Effect: No known presurgical therapy Tumor Extent: [...] Fibrosis: portal, grade 1 Additional Findings: Steatosis 64249,[id number],50813Gptpx lesion LiverThe interpretation ofthis case included the use of immunohistochemistry or special stains.Control Slides Examined: In-house known positive controls were evaluated along with the test tissue. These control slides run alongside of the patients sample show appropriate staining. Internal positive and negative controls when available are evaluated Immunohistochemistry technical testing was performed at [facility], Pathology Laboratory where it was [...] DEFER TO PERMANENT-APPROXIMATELY 3 MM AWAY FROM BAG PATCHER MARGIN-RESULTS REPORTED BY DR THAPA TO DR TRINIDAD ON 01/08/2022 AT 11:30AMA. Received fresh for frozen section analysis labeled with the patient's name, accession number and "extended right hepatectomy" is a 1575 g, 20.0 x 16.0 x 8.0 cm partial hepatectomy. The capsule is tarn, smooth, intact and displays a 5.5 x [...] from the possible bile duct margin. A sales representative cash registers section of the mass is entirely frozen as A1 FS. A second sales representative cash registers section of the mass to closest resection margin is entirely frozen as A2 FS. The remaining uninvolved liver parenchyma is tran-brown and heterogeneous. No other discrete lesions are grossly appreciated. A gross photograph is taken. Marine Cargo Surveyor sections are submitted as follows:Ink codeResection margin: BlackCapsule: OrangeClosest vascular jam n: BlueSection codeA1 FS: Mass to uninvolved liverA2 FS: Mass to resection marginA3-A5: Mass to vascular marginA6-A7: Vascular and bile duct margins en faceA8-A 12: Mass to resection marginA 13-A 14: Mass to capsule and resection marginA 15-A 16: Mass to capsuleA 17-A 21: Mass to uninvolved liverA 22: Uninvolved liverPilar Tayler, PA, HT (ASCP)POCT-GLUCOSE [id number] 11:51:02 Test Item Value Reference Range Interpretation Comments POC-GLUCOSE METER 163 mg/dL 70-110 H : TESTED A T [facility] 67[facility] (BEAKER) (test code = MARIA GUADALUPE [place], 1538) [address]: Manager Web Application/Techni giana ID = [id number] for KAREY VU POCT-GLUCOSE [id number] 08:10:34 Test Item Value Reference Range Interpretation Comments POC-GLUCOSE METER 104 mg/dL 70-110 : TESTED A T [facility] (BEAKER) (test code = [facility] [place], 1538) 85286: Manager Web Application/Techni giana ID = [id number] for KAREY VU [id number] 04:49:32 Test Item Value Reference Range Interpretation Comments PHOSPHORUS (BEAKER) (test code = 4.0 mg/dL 2.3-4.7 604) Manager Web Application ID - DBHEPATIC FUNCTION [id number] 04:49:32 Test Item Value Reference Range Interpretation [...] code = 79 U/L 6-55 H 347) Manager Web Application ID - DBBASIC METABOLIC [id number] 04:49:31 Test Item Value Reference Range Interpretation [...] S NOT APPLICABLE FOR DIALYSIS PATIEN TS. Manager Web Application ID - [id number] 04:49:31 Test Item Value Reference Range Interpretation Comments MAGNESIUM (BEAKER) (test code = 2.1 mg/dL 1.6-2.6 627) Manager Web Application ID - DBPROTHROMBIN [id number] 04:42:29 Test Item Value Reference Range Interpretation Comments PROTIME (BEAKER) 15.1 seconds 11.9-14.2 H (test code = 759) INR (BEAKER) (test 1.21 See_Comment [Automat ed message] code = 370) The system [facility] generated this result transmitted ref erence range: [...] 0-0 (BEAKER) (test code = 413) POCT-GLUCOSE [id number] 21:37:34 Test Item Value Reference Range Interpretation Comments POC-GLUCOSE METER 224 mg/dL 70-110 H : TESTED A T [facility] (BEAKER) (test code = [facility], 1538) 94349: Manager Web Application/Techni giana ID = [id number] for ZEB MANZANARES POCT-GLUCOSE [id number] 16:19:04 Test Item Value Reference Range Interpretation Comments POC-GLUCOSE METER 190 mg/dL 70-110 H : TESTED A T [facility] (BEAKER) (test code = [facility], 1538) 03626: Manager Web Application/Techni giana ID = [id number] for Breonna Odell URINALYSIS W/ REFLEX URINE [id number] 12:18:07 Test Item Value Reference Range Interpretation [...] = 1584) SOURCE(BEAKER) (test code = 2795) Manager Web Application ID - [auto]Manager Web Application ID - techPOCT-GLUCOSE [id number] 11:59:51 Test Item Value Reference Range Interpretation Comments POC-GLUCOSE METER 193 mg/dL 70-110 H : TESTED A T [facility] (BEAKER) (test code = [facility], 1538) 99452: Manager Web Application/Techni giana ID = [id number] for Da vis, Ravi POCT-GLUCOSE [id number] 08:09:16 Test Item Value Reference Range Interpretation Comments POC-GLUCOSE METER 174 mg/dL 70-110 H : TESTED A T [facility] (BEAKER) (test code = [facility], 1538) 98455: Manager Web Application/Techni giana ID = [id number] for Da vis, Ravi RAD, CHEST, 1 VIEW, NON [id number] 07:47:00REFERRING : BACDI VALENTINO MD....[id number] for exam:->[facility]ness [facility] : 1975 Sex: FFINAL REPORT CLINICAL HISTORY: Shortness of breath TECHNIQUE: 1 view of the chest. COMPARISON: 01/12/2022 IMPRESSION: The right central line has been removed. Bilateral lower lung predominant airspace opacities and layering pleural effusions are grossly unchanged. The cardiomediastinal silhouette is magnified by technique. Signed: Julissa Dowling MDReport Verified Date/Time: 207:47:28 Reading Location: [facility] Radiology Reading Room HEPATIC FUNCTION [id number] 07:35:03 Test Item Value Reference Range Interpretation [...] Specimen slightly (test code = 347) hemolyzed Manager Web Application ID - [id number] 07:35:02 Test Item Value Reference Range Interpretation Comments PHOSPHORUS (BEAKER) 3.3 mg/dL 2.3-4.7 Specimen slightly (test code = 604) hemolyzed Manager Web Application ID - aahamidBASIC METABOLIC [id number] 07:35:02 Test Item Value Reference Range Interpretation [...] S NOT APPLICABLE FOR DIALYSIS PATIEN TS. Manager Web Application ID - [id number] 07:35:01 Test Item Value Reference Range Interpretation Comments MAGNESIUM (BEAKER) 2.2 mg/dL 1.6-2.6 Specimen slightly (test code = 627) hemolyzed Manager Web Application ID - aahamidPROTHROMBIN [id number] 07:22:37 Test Item Value Reference Range Interpretation Comments PROTIME (BEAKER) 15.9 seconds 11.9-14.2 H (test code = 759) INR (BEAKER) (test 1.29 See_Comment [Automat ed message] code = 370) The system [facility] generated this result transmitted ref erence range: [...] 0-0 (BEAKER) (test code = 413) POCT-GLUCOSE [id number] 21:12:56 Test Item Value Reference Range Interpretation Comments POC-GLUCOSE METER 224 mg/dL 70-110 H : TESTED A T [facility] (BEAKER) (test code = [facility], 153) 10856: Manager Web Application/Techni giana ID = [id number] for JEY TSE POCT-GLUCOSE [id number] 17:11:27 Test Item Value Reference Range Interpretation Comments POC-GLUCOSE METER 188 mg/dL 70-110 H : TESTED A T [facility] (BEAKER) (test code = [facility], 153) 58611: Manager Web Application/Techni giana ID = [id number] for Breonna Odell [id number] 13:29:43 Test Item Value Reference Range Interpretation Comments PHOSPHORUS (BEAKER) (test code = 2.2 mg/dL 2.3-4.7 L 604) Manager Web Application ID - PIAYA LPOCT-GLUCOSE [id number] 11:24:19 Test Item Value Reference Range Interpretation Comments POC-GLUCOSE METER 246 mg/dL 70-110 H : TESTED A T [facility] (BEAKER) (test code = [facility], 1538) 50537: Manager Web Application/Techni giana ID = [id number] for Breonna Odell [id number] 08:18:27 Test Item Value Reference Range Interpretation Comments PHOSPHORUS (BEAKER) (test code = 2.5 mg/dL 2.3-4.7 604) Manager Web Application ID - DBPOCT-GLUCOSE [id number] 07:32:29 Test Item Value Reference Range Interpretation Comments POC-GLUCOSE METER 169 mg/dL 70-110 H : TESTED A T [facility] (BEAKER) (test code = [facility], 1538) 24172: Manager Web Application/Techni giana ID = [id number] for Samara Ogden BASIC METABOLIC [id number] 04:53:36 Test Item Value Reference Range Interpretation [...] S NOT APPLICABLE FOR DIALYSIS PATIEN TS. Manager Web Application ID - PIAYA LSpecimen slightly ictericHEPATIC FUNCTION [id number] 04:53:36 Test Item Value Reference Range Interpretation [...] code = 147 U/L 6-55 H 347) Manager Web Application ID - ROSA LSpecimen slightly [id number] 04:53:35 Test Item Value Reference Range Interpretation Comments MAGNESIUM (BEAKER) (test code = 2.2 mg/dL 1.6-2.6 627) Manager Web Application ID - ROSA [id number] 04:53:35 Test Item Value Reference Range Interpretation Comments PHOSPHORUS (BEAKER) (test code = 2.5 mg/dL 2.3-4.7 604) Manager Web Application ID - ROSA LPROTHROMBIN TIME/ 03:55:11 Test Item Value Reference Range Interpretation Comments PROTIME (BEAKER) 16.5 seconds 11.9-14.2 H (test code = 759) INR (BEAKER) (test 1.35 See_Comment [Automat ed message] code = 370) The system [facility] [employer] generated this result transmitted ref erence range: [...] CELLS (BEAKER) (test code = 413) POCT-GLUCOSE [id number] 23:59:46 Test Item Value Reference Range Interpretation Comments POC-GLUCOSE METER 214 mg/dL 70-110 H : TESTED A T [facility] (BEAKER) (test code = [facility], 1538) 89499: Manager Web Application/Techni giana ID = [id number] for NC MS, SENORA [id number] 22:06:40 Test Item Value Reference Range Interpretation Comments PHOSPHORUS (BEAKER) (test code = 5.1 mg/dL 2.3-4.7 H 604) Manager Web Application ID - DBPOCT-GLUCOSE [id number] 21:26:04 Test Item Value Reference Range Interpretation Comments POC-GLUCOSE METER 225 mg/dL 70-110 H : TESTED A T [facility] (BEAKER) (test code = [facility], 1538) 22648: Manager Web Application/Techni giana ID = [id number] for NC MS, SENORA POCT-GLUCOSE [id number] 17:38:43 Test Item Value Reference Range Interpretation Comments POC-GLUCOSE METER 256 mg/dL 70-110 H : TESTED A T [facility] (KIT) (test code = [facility] [place], 1538) 23522: Manager Web Application/Techni giana ID = [id number] for NAVNEET OWEN (V), SOMI [id number] 12:57:22 Test Item Value Reference Range Interpretation Comments PHOSPHORUS (BEISAMAR) (test code = 2.5 mg/dL 2.3-4.7 604) Manager Web Application ID - ANTHONY ADAMS, CHEST, 1 VIEW, NON [id number] 11:58:00REFERRING : DI COTTON MD....1495Reason for exam:->picc line placementShould this be performedat the bedside?->Yes [facility] 1975 Sex: FFINAL REPORT AP view of the chest dated 01/12/2022 COMPARISON: January 11, 2022 CLINICAL INFORMATION: picc line placement Comment: Since prior examination, there is interval placement of a left PICC line with tip seen in the left axillary vein. No other changes are seen in the chest. Signed: Noel Hdez Verified Date/Time: 01/12/2022 11:58:32 [facility] [place] Body Reading Room POCT-GLUCOSE [id number] 11:45:37 Test Item Value Reference Range Interpretation Comments POC-GLUCOSE METER 191 mg/dL 70-110 H : TESTED A T [facility] (BEAKER) (test code = [facility] [place], 1538) 80681: Manager Web Application/Techni giana ID = [id number] for NAVNEET OWEN (Ally)FABIAN POCT-GLUCOSE [id number] 06:12:53 Test Item Value Reference Range Interpretation Comments POC-GLUCOSE METER 206 mg/dL 70-110 H : TESTED A T [facility] (BEAKER) (test code = [facility] [place], 1538) 57702: Manager Web Application/Techni giana ID = [id number] for Jose Benítez HEPATIC FUNCTION [id number] 05:52:22 Test Item Value Reference Range Interpretation [...] code = 228 U/L 6-55 H 347) Manager Web Application ID - VAZQUEZ BRUNSONpecimepearl slightly ictericBASIC METABOLIC [id number] 05:52:21 Test Item Value Reference Range Interpretation [...] S NOT APPLICABLE FOR DIALYSIS PATIEN TS. Manager Web Application ID Ly SHUKLA WSpecimen slightly [id number] 05:52:20 Test Item Value Reference Range Interpretation Comments MAGNESIUM (BEAKER) (test code = 2.3 mg/dL 1.6-2.6 627) Manager Web Application ID - VAZQUEZ [id number] 05:52:20 Test Item Value Reference Range Interpretation Comments PHOSPHORUS (BEAKER) (test code = 3.2 mg/dL 2.3-4.7 604) Manager Web Application ID Ly SHUKLA WPROTHROMBIN TIME/[id number] 05:14:02 Test Item Value Reference Range Interpretation Comments PROTIME (BEAKER) 18.4 seconds 11.9-14.2 H (test code = 759) INR (BEAKER) (test 1.55 See_Comment [Automat ed message] code = 370) The system [facility] generated this result transmitted ref erence range: [...] 0-0 (BEAKER) (test code = 413) POCT-GLUCOSE [id number] 04:26:10 Test Item Value Reference Range Interpretation Comments POC-GLUCOSE METER 205 mg/dL 70-110 H : TESTED A T [facility] 6720 (BEAKER) (test code = [facility] [place], 1538) 25307: Manager Web Application/Techni giana ID = [id number] for Ak Samara bledsoe RAD, CHEST, 1 VIEW, NON [id number] 23:52:00REFERRING : DI COTTON MD....1495[facility] for [facility]:->acute hypoxiaShould this be performed at the bedside?->Yes[facility] : 1975 Sex: FFINAL [...] hemidiaphragm favored torepresent pneumoperitoneum. Signed: Amber Cho Verified Date/Time: 01/11/2022 23:52:55 BASIC METABOLIC [id number] 23:20:43 Test Item Value Reference Range Interpretation [...] S NOT APPLICABLE FOR DIALYSIS PATIEN TS. Manager Web Application ID - DBSpecimen slightly [id number] 23:17:10 Test Item Value Reference Range Interpretation Comments PHOSPHORUS (BEAKER) (test code = 3.0 mg/dL 2.3-4.7 604) Manager Web Application ID - [id number] 23:17:09 Test Item Value Reference Range Interpretation Comments MAGNESIUM (BEAKER) (test code = 2.4 mg/dL 1.6-2.6 627) Manager Web Application ID - DBPOCT-GLUCOSE [id number] 22:52:03 Test Item Value Reference Range Interpretation Comments POC-GLUCOSE METER 199 mg/dL 70-110 H : TESTED A T [facility] ([facility]) (test code = [facility], 1538) 42855: Manager Web Application/Techni giana ID = [id number] for Sp Jose mcbride POCT-GLUCOSE [id number] 20:46:41 Test Item Value Reference Range Interpretation Comments POC-GLUCOSE METER 194 mg/dL 70-110 H : TESTED A T [facility] ([facility]) (test code = [facility], 1538) 02239: Manager Web Application/Techni giana ID = [id number] for Ak Samara bledsoe POCT-GLUCOSE [id number] 16:59:55 Test Item Value Reference Range Interpretation Comments POC-GLUCOSE METER 119 mg/dL 70-110 H : TESTED A T [facility] ([facility]) (test code = [facility], 1538) 19899: Manager Web Application/Techni giana ID = [id number] for DE NNIS, ALEXANDRO U/S, ABDOMINAL, WITH [id number] 16:00:00REFERRING : DI COTTON MD....1495Reason for exam:->s/p hepatectomy- assess for fluid collection or bile leak/edema \\T\\ assess IVC [facility] : 1975 Sex: FFINAL [...] Raghav Emmanuel MDReport Verified Date/Time: 01/11/2022 16:00:16 [id number] 15:15:53 Test Item Value Reference Range Interpretation Comments PHOSPHORUS (BEAKER) (test code = 1.6 mg/dL 2.3-4.7 L 604) Manager Web Application ID - DBPOCT-GLUCOSE [id number] 12:27:11 Test Item Value Reference Range Interpretation Comments POC-GLUCOSE METER 113 mg/dL 70-110 H : TESTED A T [facility] 6720 (BEAKER) (test code = [facility] [place], 1538) 04392: Manager Web Application/Techni giana ID = [id number] for ALEXANDRO CROWDER POCT-GLUCOSE [id number] 11:53:46 Test Item Value Reference Range Interpretation Comments POC-GLUCOSE METER 122 mg/dL 70-110 H : TESTED Thiago T [facility] (BEAKER) (test code = [facility] [place], 1538) 76113: Manager Web Application/Techni giana ID = [id number] for Mary olivas (contract)Gloria cia BASIC METABOLIC [id number] 07:27:22 Test Item Value Reference Range Interpretation [...] S NOT APPLICABLE FOR DIALYSIS PATIEN TS. Manager Web Application ID - VAZQUEZ BOYpecimepearl slightly ictericHEPATIC FUNCTION [id number] 07:20:11 Test Item Value Reference Range Interpretation [...] code = 279 U/L 6-55 H 347) Manager Web Application ID - VAZQUEZ WSpecimen slightly [id number] 07:20:10 Test Item Value Reference Range Interpretation Comments PHOSPHORUS (BEAKER) (test code = 2.8 mg/dL 2.3-4.7 604) Manager Web Application ID - VAZQUEZ [id number] 07:20:09 Test Item Value Reference Range Interpretation Comments MAGNESIUM (BEAKER) (test code = 1.9 mg/dL 1.6-2.6 627) Manager Web Application ID - VAZQUEZ [id number] 06:32:13 Test Item Value Reference Range Interpretation Comments PARTIAL THROMBOPLASTIN TIME 31.5 seconds 22.5-36.0 (BEAKER) (test code = 760) POCT-GLUCOSE [id number] 06:31:54 Test Item Value Reference Range Interpretation Comments POC-GLUCOSE METER 138 mg/dL 70-110 H : TESTED A T [facility] 6720 (BEAKER) (test code = [facility] [facility], 1538) 82198: Manager Web Application/Techni giana ID = [id number] for Jose Benítez PROTHROMBIN TIME/[id number] 06:31:30 Test Item Value Reference Range Interpretation Comments PROTIME (BEAKER) 19.2 seconds 11.9-14.2 H (test code = 759) INR (BEAKER) (test 1.64 See_Comment [Automat ed message] code = 370) The system [facility] generated this result transmitted ref erence range: [...] = 413) RAD, CHEST, 1 VIEW, NON [id number] 06:17:00REFERRING : DI COTTON MD....1495Reason for exam:->overloadShould [facility]->[facility] : 1975 Sex: FFINAL [...] Chris Larios MDReportVerified Date/Time: 01/11/2022 06:17:18 IUM, [id number] 05:49:44 Test Item Value Reference Range Interpretation Comments CALCIUM IONIZED (BEAKER) (test 1.05 mmol/L 1.12-1.27 L code = 698) PH, BLOOD (BEAKER) (test code = 7.36 1810) POCT-GLUCOSE [id number] 04:47:13 Test Item Value Reference Range Interpretation Comments POC-GLUCOSE METER 150 mg/dL 70-110 H : TESTED A T [facility] 6720 (BEAKER) (test code = [facility], [facility]8) 36463: Manager Web Application/Techni giana ID = [id number] for AKHIONBARE, TITO TH POCT-GLUCOSE [id number] 02:23:48 Test Item Value Reference Range Interpretation Comments POC-GLUCOSE METER 107 mg/dL 70-110 : TESTED A T [facility] 6720 (BEAKER) (test code = [facility], 1538) 21837: Manager Web Application/Techni giana ID = [id number] for AKHIONBARE, TITO TH POCT-GLUCOSE [id number] 01:40:24 Test Item Value Reference Range Interpretation Comments POC-GLUCOSE METER 60 mg/dL 70-110 L : TESTED A T [facility] 6720 (BEAKER) (test code = [facility], 1538) 76277: Manager Web Application/Techni giana ID = [id number] for Sonidopearl fentonZoeJose POCT-GLUCOSE [id number] 01:20:51 Test Item Value Reference Range Interpretation Comments POC-GLUCOSE METER 79 mg/dL 70-110 : TESTED A T [facility] 6720 (BEAKER) (test code = [facility], 1538) 36184: Manager Web Application/Techni giana ID = [id number] for Spen cer, Jose [id number] 00:04:49 Test Item Value Reference Range Interpretation Comments PHOSPHORUS (BEAKER) (test code = 3.0 mg/dL 2.3-4.7 604) Manager Web Application ID - DBPOCT-GLUCOSE [id number] 22:32:57 Test Item Value Reference Range Interpretation Comments POC-GLUCOSE METER 107 mg/dL 70-110 : TESTED A T [facility] 6720 (BEAKER) (test code = [facility], 1538) 85725: Manager Web Application/Techni giana ID = [id number] for Sp encer, Jose POCT-GLUCOSE [id number] 21:11:58 Test Item Value Reference Range Interpretation Comments POC-GLUCOSE METER 111 mg/dL 70-110 H : TESTED A T [facility] 6720 (BEAKER) (test code = [facility], 1538) 11031: Manager Web Application/Techni giana ID = [id number] for Sp encer, Jose POCT-GLUCOSE [id number] 20:12:59 Test Item Value Reference Range Interpretation Comments POC-GLUCOSE METER 118 mg/dL 70-110 H : TESTED A T [facility] 6720 (BEAKER) (test code = [facility], [facility]8) 30797: Manager Web Application/Techni giana ID = [id number] for Sp encer, Jose SARS-COV2/RT-PCR ([facility])2022-01-10 20:00:18 Test Item Value Reference Range Interpretation Comments SARS-COV2/RT-PCR (test code = Negative Negative 6830924) Negative result for this test determines that [...] 564(g) of the Act.Testing was performed using [employer] SARS-CoV-2 assay.Fact Sheet for Healthcare Providers:https://www.[employer]/clive/RT SARS-CoV-2 HCP Fact Sheet 51- 536169.pdfFact Sheet for Healthcare Patients:https://www.[employer]/clive/RT SARS-CoV-2 Patient Fact Sheet EN 51-664295F2.pdfPOCT-GLUCOSE [id number] 19:44:42 Test Item Value Reference Range Interpretation Comments POC-GLUCOSE METER 133 mg/dL 70-110 H : TESTED A T [facility] 6720 (BEAKER) (test code = [facility], 1538) 38780: Manager Web Application/Techni giana ID = [id number] for Wr aggs (contract), Vontu logan POCT-GLUCOSE [id number] 18:18:46 Test Item Value Reference Range Interpretation Comments POC-GLUCOSE METER 148 mg/dL 70-110 H : TESTED A T [facility] 6720 (BEAKER) (test code = [facility], 1538) 90418: Manager Web Application/Techni giana ID = [id number] for Wr aggs (contract), Ali logan POCT-GLUCOSE [id number] 17:40:11 Test Item Value Reference Range Interpretation Comments POC-GLUCOSE METER 156 mg/dL 70-110 H : TESTED A T [facility] 6720 (BEAKER) (test code = [facility], 1538) 74810: Manager Web Application/Techni giana ID = [id number] for Wr aggs (contract), Gloria ford BASIC METABOLIC [id number] 17:04:40 Test Item Value Reference Range Interpretation [...] S NOT APPLICABLE FOR DIALYSIS PATIEN TS. Manager Web Application ID - [id number] 17:04:40 Test Item Value Reference Range Interpretation Comments PHOSPHORUS (BEAKER) (test code = 2.6 mg/dL 2.3-4.7 604) Manager Web Application ID - DBPOCT-GLUCOSE [id number] 16:20:01 Test Item Value Reference Range Interpretation Comments POC-GLUCOSE METER 185 mg/dL 70-110 H : TESTED A T [facility] 6720 (BEAKER) (test code = [facility], 1538) 79323: Manager Web Application/Techni giana ID = [id number] for Wr aggs (contract), Gloria ford POCT-GLUCOSE [id number] 14:59:35 Test Item Value Reference Range Interpretation Comments POC-GLUCOSE METER 231 mg/dL 70-110 H : TESTED A T [facility] 6720 (BEAKER) (test code = [facility], 1538) 95496: Manager Web Application/Techni giana ID = [id number] for Wr aggs (contract), Ali logan POCT-GLUCOSE [id number] 13:41:10 Test Item Value Reference Range Interpretation Comments POC-GLUCOSE METER 255 mg/dL 70-110 H : TESTED A T [facility] 6720 (BEAKER) (test code = [facility], 1538) 41101: Manager Web Application/Techni giana ID = [id number] for Mary aggs (contract), Ali logan POCT-GLUCOSE [id number] 12:27:46 Test Item Value Reference Range Interpretation Comments POC-GLUCOSE METER 244 mg/dL 70-110 H : TESTED A T [facility] 6720 (BEAKER) (test code = [facility], 1538) 05387: Manager Web Application/Techni giana ID = [id number] for Mary aggs (contract), Ali logan POCT-GLUCOSE [id number] 11:30:30 Test Item Value Reference Range Interpretation Comments POC-GLUCOSE METER 196 mg/dL 70-110 H : TESTED A T [facility] 6720 (BEAKER) (test code = [facility], 1538) 05718: Manager Web Application/Techni giana ID = [id number] for Mary nicoles (contract), Ali logan Hemoglobin [id number] 10:30:44 Test Item Value Reference Range Interpretation [...] ADM Lab Interpretation Abnormal (test code = 94710-0) [facility] [id number] 10:30:44 Test Item Value Reference Range Interpretation [...] ADM Lab Interpretation Abnormal (test code = 86526-2) [facility] CaliforniaHEMOGLOBIN [id number] 10:30:44 Test Item Value Reference Range Interpretation [...] 5.7- 6.4% indicates increased risk for diabetes (prediabetes)."Manager Web Application ID - ADMPOCT- GLUCOSE [id number] 10:19:53 Test Item Value Reference Range Interpretation Comments POC-GLUCOSE METER 220 mg/dL 70-110 H : TESTED A T [facility] 6720 (RostelecomAKER) (test code = [facility], 153) 01948: Manager Web Application/Techni giana ID = [id number] for Wr aggs (contract), Ali logan POCT-GLUCOSE [id number] 09:05:34 Test Item Value Reference Range Interpretation Comments POC-GLUCOSE METER 140 mg/dL 70-110 H : TESTED A T [facility] 6720 (RostelecomAKER) (test code = [facility], 1538) 41566: Manager Web Application/Techni giana ID = [id number] for Wr aggs (contract), Ali logan POCT-GLUCOSE [id number] 06:31:22 Test Item Value Reference Range Interpretation Comments POC-GLUCOSE METER 149 mg/dL 70-110 H : TESTED A T [facility] 6720 (BEAKER) (test code = [facility], 1538) 81689: Manager Web Application/Techni giana ID = [id number] for Jose Benítez POCT-GLUCOSE [id number] 04:50:49 Test Item Value Reference Range Interpretation Comments POC-GLUCOSE METER 135 mg/dL 70-110 H : TESTED A T [facility] 6720 (SAMYAKER) (test code = [facility] [place], 1538) 15667: Manager Web Application/Techni giana ID = [id number] for Sp Jose mcbride RAD, CHEST, 1 VIEW, NON [id number] 04:32:00REFERRING : DI COTTON MD....1495Reason for exam:->overloadShould this be [facility]->Yes[facility]ame: [facility] R[facility]OS : 1975 Sex: FFINAL REPORT [...] the setting of a recent procedure. Signed: Amber Cho Verified Date/Time: 01/10/2022 04:32:08 CALCIUM, [id number] 03:53:08 Test Item Value Reference Range Interpretation Comments CALCIUM IONIZED (KIT) (test 1.15 mmol/L 1.12-1.27 code = 698) PH, BLOOD (BEAKER) (test code = 7.39 1810) BASIC METABOLIC [id number] 03:32:49 Test Item Value Reference Range Interpretation [...] S NOT APPLICABLE FOR DIALYSIS PATIEN TS. Manager Web Application ID - BSSpecimen slightly ictericHEPATIC FUNCTION [id number] 03:32:49 Test Item Value Reference Range Interpretation [...] code = 324 U/L 6-55 H 347) Manager Web Application ID - BSSpecimen slightly [id number] 03:32:48 Test Item Value Reference Range Interpretation Comments MAGNESIUM (BEAKER) (test code = 2.3 mg/dL 1.6-2.6 627) Manager Web Application ID - [id number] 03:32:48 Test Item Value Reference Range Interpretation Comments PHOSPHORUS (BEAKER) (test code = 1.9 mg/dL 2.3-4.7 L 604) Manager Web Application ID - [id number] 03:04:23 Test Item Value Reference Range Interpretation Comments PARTIAL THROMBOPLASTIN TIME 33.4 seconds 22.5-36.0 (BEAKER) (test code = 760) PROTHROMBIN TIME/[id number] 03:03:43 Test Item Value Reference Range Interpretation Comments PROTIME (BEAKER) 20.4 seconds 11.9-14.2 H (test code = 759) INR (BEAKER) (test 1.77 See_Comment [Automat ed message] code = 370) The system [facility] generated this result transmitted ref erence range: [...] 0-0 (BEAKER) (test code = 413) POCT-GLUCOSE [id number] 02:18:30 Test Item Value Reference Range Interpretation Comments POC-GLUCOSE METER 139 mg/dL 70-110 H : TESTED A T [facility] 6720 (BEAKER) (test code = [facility], 1538) 01906: Manager Web Application/Techni giana ID = [id number] for Jose Benítez POCT-GLUCOSE [id number] 01:19:22 Test Item Value Reference Range Interpretation Comments POC-GLUCOSE METER 138 mg/dL 70-110 H : TESTED A T [facility] 6720 (BEAKER) (test code = [facility], 1538) 69860: Manager Web Application/Techni giana ID = [id number] for Zoe Benítezsef POCT-GLUCOSE [id number] 00:20:30 Test Item Value Reference Range Interpretation Comments POC-GLUCOSE METER 151 mg/dL 70-110 H : TESTED A T [facility] 6720 (BEAKER) (test code = [facility], 1538) 35619: Manager Web Application/Techni giana ID = [id number] for Zoe Benítezsef Prepare [id number] 23:55:00 Test Item Value Reference Range Interpretation Comments CROSSMATCH (test code = 2263) COMPATIBLE Unit ABO (test code = O Pos 8654697) UNIT NUMBER (test code = [id number] 934-0) Status (test code = 4094432) [facility] Blood Bank Product (test code RED BLOOD CELLS = 2263) PRODUCT CODE (test code = L6600P95 933-2) [facility] California[facility] Leuko-Red [id number] 23:55:00 Test Item Value Reference Range Interpretation Comments CROSSMATCH (test code = COMPATIBLE 2264) Unit ABO (test code = O Pos 3403572) UNIT NUMBER (test code = [id number] 934-0) Status (test code = RETURNED FROM ISSUE 1364211) Blood Bank Product (test RED BLOOD CELLS code = 2263) PRODUCT CODE (test code = K9416S20 933-2) [facility] CaliforniaPrep[facility] [id number] 23:55:00 Test Item Value Reference Range Interpretation Comments CROSSMATCH (test code = 4) COMPATIBLE Unit ABO (test code = O Pos 0251452) UNIT NUMBER (test code = [id number] 934-0) Status (test code = 7231637) [place]_TIMEINCHART Blood Bank Product (test code RED BLOOD CELLS = 2263) PRODUCT CODE (test code = A6615M08 933-2) [facility] CaliforniaPre[facility] Leuko-Red [id number] 23:55:00 Test Item Value Reference Range Interpretation Comments CROSSMATCH (test code = COMPATIBLE 2263) Unit ABO (test code = O Pos 6692560) UNIT NUMBER (test code = [id number] 934-0) Status (test code = RETURNED FROM ISSUE 1988521) Blood Bank Product (test RED BLOOD CELLS code = 2263) PRODUCT CODE (test code = F2989W50 933-2) [facility] CaliforniaPOCT-GLUCOSE [id number] 23:19:52 Test Item Value Reference Range Interpretation Comments POC-GLUCOSE METER 148 mg/dL 70-110 H : TESTED A T [facility] 6720 (BEAKER) (test code = [facility] [place], 1538) 09893: Manager Web Application/Techni giana ID = [id number] for Jose Benítez BASIC METABOLIC [id number] 22:46:16 Test Item Value Reference Range Interpretation [...] S NOT APPLICABLE FOR DIALYSIS PATIEN TS. Manager Web Application ID - BSSpecimen slightly [id number] 22:46:15 Test Item Value Reference Range Interpretation Comments MAGNESIUM (BEAKER) (test code = 2.3 mg/dL 1.6-2.6 627) Manager Web Application ID - [id number] 22:46:15 Test Item Value Reference Range Interpretation Comments PHOSPHORUS (BEAKER) (test code = 2.7 mg/dL 2.3-4.7 604) Manager Web Application ID - BSCBC W/PLT COUNT & AUTO [id number] 22:24:24 Test Item Value Reference Range Interpretation [...] 0-0 (BEAKER) (test code = 413) POCT-GLUCOSE [id number] 22:19:16 Test Item Value Reference Range Interpretation Comments POC-GLUCOSE METER 174 mg/dL 70-110 H : TESTED A T [facility] 6720 ([facility]) (test code = MARIA GUADALUPE [place], 1538) [address]: Manager Web Application/Techni giana ID = [id number] for Sp luciaerJose RAD, ABDOMEN/KUB, 1 VIEW [id number] 21:14:00REFERRING : DI COTTON MD....1495Reason for exam:->NG tube pkacementShould this be performed at the bedside?->Yes[facility] : 1975 Sex: FFINAL REPORT EXAM: KUB CLINICAL HISTORY: G-tube placement FINDINGS: The tip of the nasogastric tube overlies the mid gastric body. There is nonobstructive bowel gas pattern. The regional osseous structures are unremarkable. The patient is status post cholecystectomy. Signed: Guillermo Cano Verified Date/Time: 01/09/2022 21:14:21 POCT-GLUCOSE [id number] 20:59:49 Test Item Value Reference Range Interpretation Comments POC-GLUCOSE METER 185 mg/dL 70-110 H : TESTED A T [facility] 6720 (BEAKER) (test code = [facility], 153) 89247: Manager Web Application/Techni giana ID = [id number] for Sp encer, Jose POCT-GLUCOSE [id number] 19:36:55 Test Item Value Reference Range Interpretation Comments POC-GLUCOSE METER 172 mg/dL 70-110 H : TESTED A T [facility] 6720 (BEAKER) (test code = [facility], 153) 95749: Manager Web Application/Techni giana ID = [id number] for Sp encer, Jose POCT-GLUCOSE [id number] 17:58:11 Test Item Value Reference Range Interpretation Comments POC-GLUCOSE METER 152 mg/dL 70-110 H : TESTED A T [facility] 6720 (BEAKER) (test code = [facility], 153) 26729: Manager Web Application/Techni giana ID = [id number] for DE NNIS, ALEXANDRO POCT-GLUCOSE [id number] 17:44:30 Test Item Value Reference Range Interpretation Comments POC-GLUCOSE METER 176 mg/dL 70-110 H : TESTED A T [facility] 6720 (BEAKER) (test code = [facility], 153) 58185: Manager Web Application/Techni giana ID = [id number] for Pr iest (contract), Jose helle POCT-GLUCOSE [id number] 16:02:38 Test Item Value Reference Range Interpretation Comments POC-GLUCOSE METER 194 mg/dL 70-110 H : TESTED A T [facility] 6720 (BEAKER) (test code = [facility], 153) 08862: Manager Web Application/Techni giana ID = [id number] for Pr iest (contract), Jose helle [id number] 15:23:28 Test Item Value Reference Range Interpretation Comments PHOSPHORUS (BEAKER) (test code = 1.9 mg/dL 2.3-4.7 L 604) Manager Web Application ID - BSRAD, CHEST, 1 VIEW, NON [id number] 15:18:00REFERRING : BACDI VALENTINO MD....1495Reason for exam:->post opShould this be performed at the bedside?->Yes [facility] : 1975 Sex: FFINAL [...] Cano MDReport Verified Date/Time: 01/09/2022 15:18:33 POCT-GLUCOSE [id number] 15:00:37 Test Item Value Reference Range Interpretation Comments POC-GLUCOSE METER 218 mg/dL 70-110 H : TESTED A T [facility] 6720 (BEAKER) (test code = MARIA GUADALUPE [place] [facility], 1538) 74235: Manager Web Application/Techni giana ID = [id number] for Pr iest (contract), Jose helle Manual Nrodhylsxkuy1484-74-57 14:09:15 Test Item Value Reference Range Interpretation Comments % Neutros (test code = 81 % 281) % Lymphs (test code = 7 % 2816) % Monos (test code = 3 % 281) % Eos (test code = 2 % 2818) % Bands (test code = 7 % 0-10 2825) # Neutros (test code = 15.55 K/ul [...] = 3438) THAI (test code = THAI) Manager Web Application ID - Lorena Romero comments: Slide comments: Lab Interpretation Abnormal (test code = 95604-1) [facility] CaliforniaManual Twysxuxtdkrk6602-89-55 14:09:15 Test Item Value Reference Range Interpretation [...] = 3438) THAI (test code = THAI) Manager Web Application ID - Lorena Romero comments: Slide comments: Lab Interpretation Abnormal (test code = 79656-4) [facility](CELLAVISION MANUAL DIFF)2022-01-09 14:09:15 Test Item Value Reference [...] CONCENTRATION Adequate (CELLAVISION)(BEAKER) (test code = 3438) Manager Web Application ID - Lorena Romero comments: Slide comments:CBC W/PLT COUNT & AUTO [id number] 14:09:14 Test Item Value Reference Range Interpretation [...] (BEAKER) (test code = 413) BASIC METABOLIC [id number] 13:59:26 Test Item Value Reference Range Interpretation [...] S NOT APPLICABLE FOR DIALYSIS PATIEN TS. Manager Web Application ID - ROSA Hansonimepearl slightly ictericHEPATIC FUNCTION [id number] 13:59:26 Test Item Value Reference Range Interpretation [...] code = 324 U/L 6-55 H 347) Manager Web Application ID Ly Hansonimen slightly [id number] 13:59:25 Test Item Value Reference Range Interpretation Comments PHOSPHORUS (BEAKER) (test code = 1.8 mg/dL 2.3-4.7 L 604) Manager Web Application ID Ly LEE LPOCT-GLUCOSE [id number] 13:55:48 Test Item Value Reference Range Interpretation Comments POC-GLUCOSE METER 206 mg/dL 70-110 H : TESTED A T [facility] 6720 (BEAKER) (test code = [place], 1538) 985[address]: Manager Web Application/Techni giana ID = [id number] for Pr iest (contract), Jose helle PROTHROMBIN TIME/[id number] 13:52:40 Test Item Value Reference Range Interpretation Comments PROTIME (BEAKER) 20.9 seconds 11.9-14.2 H (test code = 759) INR (BEAKER) (test 1.83 See_Comment [Automat ed message] code = 370) The system [facility] generated this result transmitted ref erence range: <=5.90. The reference range was not used to int erpret this result as normal/abnormal . RECOMMENDED COUMADIN/WARFARIN INR THERAPY RANGESSTANDARD DOSE: 2.0 - 3.0 Includes: PROPHYLAXIS for venous thrombosis, systemic embolization; TREATMENT for venous thrombosis and/or pulmonary embolus.HIGH RISK: Target INR is 2.5-3.5 for patients with mechanical heart valves.POCT-GLUCOSE [id number] 13:05:24 Test Item Value Reference Range Interpretation Comments POC-GLUCOSE METER 220 mg/dL 70-110 H : TESTED A T [facility] 6720 ([email or web address]) (test code = [facility] [place] [facility], 1538) 14476: Manager Web Application/Techni giana ID = [id number] for Pr iest (contract), Jose helle POCT-GLUCOSE [id number] 12:06:22 Test Item Value Reference Range Interpretation Comments POC-GLUCOSE METER 218 mg/dL 70-110 H : TESTED A T [facility] 6720 ([email or web address]) (test code = [employer] [place] [employer] [facility], 1538) 34670: Manager Web Application/Techni giana ID = [id number] for Cl ymer (contract), Fidel in U/S, ABDOMINAL, WITH [id number] 11:21:00REFERRING : BACDI VALENTINO MD....1495Reason for exam:->s/p hepatectomy- assess vessels and assess for fluid collections, leak [facility] : 1975 Sex: FFINAL [...] the liver with mild splenomegaly. Signed: Hemal Flores [facility] Verified Date/Time: 01/09/2022 11:21:03 POCT-GLUCOSE [id number] 10:53:39 Test Item Value Reference Range Interpretation Comments POC-GLUCOSE METER 242 mg/dL 70-110 H : TESTED A T [employer] 6720 ([email or web address]) (test code = [facility], 153) 28259: Manager Web Application/Techni giana ID = [id number] for Pr iest (contract), Jose helle POCT-GLUCOSE [id number] 09:57:59 Test Item Value Reference Range Interpretation Comments POC-GLUCOSE METER 265 mg/dL 70-110 H : TESTED A T [facility] 6720 ([email or web address]) (test code = [facility], 1538) 80129: Manager Web Application/Techni giana ID = [id number] for Pr iest (contract), Jose helle Lactic Acid, Gkilrncy4366-09-70 09:03:58 Test Item Value Reference Range Interpretation Comments Lactate, Art (test 3.8 mmol/L 0.5-2.2 H Specimen code = 2874) slightly hemolyzed THAI (test code = THAI) Manager Web Application ID - CORNELIA CSpecimen slightly icteric Lab Interpretation Abnormal (test code = 86258-1) [facility] CaliforniaLactic Acid, Pilgnvhb7027-26-60 09:03:58 Test Item Value Reference Range Interpretation Comments Lactate, Art (test 3.8 mmol/L 0.5-2.2 H Specimen code = 2874) slightly hemolyzed THAI (test code = THAI) Manager Web Application ID - CORNELIA CSpecimen slightly icteric Lab Interpretation Abnormal (test code = 33594-2) [facility] CaliforniaLACTIC ACID, [id number] 09:03:58 Test Item Value Reference Range Interpretation Comments LACTATE BLOOD 3.8 mmol/L 0.5-2.2 H Specimen sligh tly ARTERIAL (2) (BEAKER) hemoly zed (test code = 2874) Manager Web Application ID - CORNELIA Keniaecimen slightly ictericPOCT-GLUCOSE [id number] 08:13:42 Test Item Value Reference Range Interpretation Comments POC-GLUCOSE METER 279 mg/dL 70-110 H : TESTED A T [facility] 6720 (BEAKER) (test code = MAR[place]ADAL[place], 1538) 59598: Manager Web Application/Techni giana ID = [id number] for Pr iest (contract), [facility], CHEST, 1 VIEW, NON [id number] 08:01:00REFERRING : DI COTTON MD....1495Reason for exam:->overloadShould this be performed at [facility]->Yes[facility] : 1975 Sex: FFINAL [...] Cantu Verified Date/Time: 01/09/2022 08:01:02 Reading Location: [facility] Radiology Reading Room POCT-GLUCOSE [id number] 07:08:49 Test Item Value Reference Range Interpretation Comments POC-GLUCOSE METER 300 mg/dL 70-110 H : TESTED A T [facility] 6720 ([email or web address]) (test code = [facility] [place] [facility], 1538) 10289: Manager Web Application/Techni giana ID = [id number] for BR OWN, NATAN POCT-GLUCOSE [id number] 06:07:19 Test Item Value Reference Range Interpretation Comments POC-GLUCOSE METER 298 mg/dL 70-110 H : TESTED A T [facility] 6720 ([email or web address]) (test code = [facility] [place] [facility], 1538) 21395: Manager Web Application/Techni giana ID = [id number] for BR OWN, NATAN LACTIC ACID, [id number] 04:34:34 Test Item Value Reference Range Interpretation Comments LACTATE BLOOD ARTERIAL (2) 4.1 mmol/L 0.5-2.2 HH (BEAKER) (test code = 2874) Manager Web Application ID - ROSA LSpecimen slightly phngliaApnrycc-JFLI2061-37-30 04:22:07 Test Item Value Reference Range Interpretation Comments Glucose (test code = 309 mg/dL 70-105 H 2345-7) THAI (test code = THAI) Manager Web Application ID - PIAYA L Lab Interpretation (test Abnormal code = 20807-6) [facility] CaliforniaPotassium-[id number] 04:22:07 Test Item Value Reference Range Interpretation Comments Potassium (test code = 4.4 meq/L 3.5-5.1 2823-3) THAI (test code = THAI) Manager Web Application ID - PIAYA L Lab Interpretation (test Normal code = 71480-6) [facility] CaliforniaGlucose-[id number] 04:22:07 Test Item Value Reference Range Interpretation Comments Glucose (test code = 309 mg/dL 70-105 H 2345-7) THAI (test code = THAI) Manager Web Application ID - PIAYA L Lab Interpretation (test Abnormal code = 99526-8) [facility] CaliforniaPotassium-ZXVJ0805-52-63 04:22:07 Test Item Value Reference Range Interpretation Comments Potassium (test code = 4.4 meq/L 3.5-5.1 2823-3) THAI (test code = THAI) Manager Web Application ID - PIAYA L Lab Interpretation (test Normal code = 17328-3) [facility] CaliforniaPOTASSIUM2022-03-30 04:22:07 Test Item Value Reference Range Interpretation Comments POTASSIUM (BEAKER) (test code = 4.4 meq/L 3.5-5.1 379) Manager Web Application ID - ROSA [id number] 04:22:07 Test Item Value Reference Range Interpretation Comments GLUCOSE RANDOM (BEAKER) (test code 309 mg/dL 70-105 H = 652) Manager Web Application ID - ROSA LPOCT-GLUCOSE [id number] 04:07:33 Test Item Value Reference Range Interpretation Comments POC-GLUCOSE METER 297 mg/dL 70-110 H : TESTED A T [facility] 6720 (BEAKER) (test code = MARIA GUADALU[place], 1538) 943[address]: Manager Web Application/Techni giana ID = [id number] for NATAN CONNELLY HEPATIC FUNCTION [id number] 03:14:33 Test Item Value Reference Range Interpretation [...] code = 310 U/L 6-55 H 347) Manager Web Application ID - BSSpecimen slightly jxunfqtYRHZSQUYZW0178-58-79 03:14:32 Test Item Value Reference Range Interpretation Comments PHOSPHORUS (BEAKER) (test code = 4.4 mg/dL 2.3-4.7 604) Manager Web Application ID - BSBASIC METABOLIC [id number] 03:14:32 Test Item Value Reference Range Interpretation [...] S NOT APPLICABLE FOR DIALYSIS PATIEN TS. Manager Web Application ID - BSSpecimen slightly pqxesilDDNYNLLMP9604-82-27 03:14:31 Test Item Value Reference Range Interpretation Comments MAGNESIUM (BEAKER) (test code = 2.2 mg/dL 1.6-2.6 627) Manager Web Application ID - [id number] 02:27:21 Test Item Value Reference Range Interpretation Comments PARTIAL THROMBOPLASTIN TIME 31.8 seconds 22.5-36.0 (BEAKER) (test code = 760) PROTHROMBIN TIME/[id number] 02:26:38 Test Item Value Reference Range Interpretation Comments PROTIME (BEAKER) 19.2 seconds 11.9-14.2 H (test code = 759) INR (BEAKER) (test 1.64 See_Comment [Automat ed message] code = 370) The system [employer] h generated this result transmitted ref erence range: <=5.90. The reference range was not used to int erpret this result as normal/abnormal . RECOMMENDED COUMADIN/WARFARIN INR THERAPY RANGESSTANDARD DOSE: 2.0 - 3.0 Includes: PROPHYLAXIS for venous thrombosis, systemic embolization; TREATMENT for venous thrombosis and/or pulmonary embolus.HIGH RISK: Target INR is 2.5-3.5 for patients with mechanical heart valves.CALCIUM, [id number] 02:22:56 Test Item Value Reference Range Interpretation Comments CALCIUM IONIZED (BEAKER) (test 1.10 mmol/L 1.12-1.27 L code = 698) PH, BLOOD (BEAKER) (test code = 7.35 1810) Blood gas, [id number] 02:22:55 Test Item Value Reference Range Interpretation Comments pH, Arterial (test code 7.35 7.35-7.45 = 2744-1) pCO2, Arterial (test 42 See_Comment [Autom ated code = 2019-8) message] The system which generated this result [...] = 2708-6) HCO3, Arterial (test 23 mmol/L 21-29 code = 1960-4) Base Excess, Arterial -2.8 mmol/L -2.0-3.0 L (test code = 1925-7) Patient Temperature 37.1 (test code = 8310-5) FIO2 (test code = 1819) 36 Lab Interpretation Abnormal (test code = 66608-8) [facility] CaliforniaBlood gas, qsyoeual1346-00-95 02:22:55 Test Item Value Reference Range Interpretation Comments pH, Arterial (test code 7.35 7.35-7.45 = 2744-1) pCO2, Arterial (test 42 See_Comment [Autom ated code = 2019-8) message] The system which generated this result [...] = 2708-6) HCO3, Arterial (test 23 mmol/L 21-29 code = 1960-4) Base Excess, Arterial -2.8 mmol/L -2.0-3.0 L (test code = 1925-7) Patient Temperature 37.1 (test code = 8310-5) FIO2 (test code = 1819) 36 Lab Interpretation Abnormal (test code = 27591-9) [facility] CaliforniaBL[facility] GAS, [id number] 02:22:55 Test Item Value Reference Range Interpretation [...] WBC 0-0 (BEAKER) (test code = 413) [id number] 21:54:03 Test Item Value Reference Range Interpretation Comments MAGNESIUM (BEAKER) (test code = 2.3 mg/dL 1.6-2.6 627) Manager Web Application ID - [id number] 21:40:02 Test Item Value Reference Range Interpretation Comments PHOSPHORUS (BEAKER) (test code = 5.1 mg/dL 2.3-4.7 H 604) Manager Web Application ID - BSHGB/HCT (H&H)-Stat [id number] 21:38:06 Test Item Value Reference Range Interpretation Comments Hemoglobin (test code = 11.3 See_Comment L [Au tomated message] 786-4) The system [facility] generated this result transmitted ref erence range: 12.0 - 1 5.0 GM/DL. The refe rence range was not u sed to interpret this result as normal/abnor mal. Hematocrit (test code = 33.0 % 36.0-45.0 L 4544-3) Lab Interpretation (test Abnormal code = 85398-8) [facility] CaliforniaHGB/HCT (H&H)-Stat [id number] 21:38:06 Test Item Value Reference Range Interpretation Comments Hemoglobin (test code = 11.3 See_Comment L [Au tomated message] 786-4) The system [facility] generated this result transmitted ref erence range: 12.0 - 1 5.0 GM/DL. The refe rence range was not u sed to interpret this result as normal/abnor mal. Hematocrit (test code = 33.0 % 36.0-45.0 L 4544-3) Lab Interpretation (test Abnormal code = 43959-9) [facility] CaliforniaHGB/HCT (H&H) - STAT [id number] 21:38:06 Test Item Value Reference Range Interpretation Comments HEMOGLOBIN (BEAKER) (test code = 11.3 GM/DL 12.0-15.0 L 410) HEMATOCRIT (BEAKER) (test code = 33.0 % 36.0-45.0 L 411) Glucose-Stat [id number] 21:38:05 Test Item Value Reference Range Interpretation Comments Glucose (test code = 2345-7) 253 mg/dL 70-110 H Lab Interpretation (test code = Abnormal 04061-4) [facility] CaliforniaGlucose-Stat [id number] 21:38:05 Test Item Value Reference Range Interpretation Comments Glucose (test code = 2345-7) 253 mg/dL 70-110 H Lab Interpretation (test code = Abnormal 66553-7) [facility] CaliforniaGLUCOSE-STAT [id number] 21:38:05 Test Item Value Reference Range Interpretation Comments GLUCOSE RANDOM (BEAKER) (test code 253 mg/dL 70-110 H = 652) BLOOD GAS, [id number] 21:38:04 Test Item Value Reference Range Interpretation Comments PH ARTERIAL (BEAKER) (test code = 7.31 7.35-7.45 L 383) PCO2 ARTERIAL (BEAKER) (test code 41 mm Hg 35-45 = 384) PO2 ARTERIAL (BEAKER) (test code 150 mm Hg 80-90 H = 385) O2 SATURATION ARTERIAL (BEAKER) 98.7 % 96.0-97.0 H (test code = 386) HCO3 ARTERIAL (BEAKER) (test code 20 mmol/L - L = 388) BASE EXCESS ARTERIAL (BEAKER) -5.9 mmol/L -2.0-3.0 L (test code = 387) PATIENT TEMPERATURE (BEAKER) 37.2 (test code = 1818) FIO2 (BEAKER) (test code = 1819) 36.0 Potassium-Stat [id number] 21:37:21 Test Item Value Reference Range Interpretation Comments Potassium (test code = 2823-3) 5.1 meq/L 3.6-5.5 Lab Interpretation (test code = Normal 67150-7) [facility] CaliforniaPotassium-Stat [id number] 21:37:21 Test Item Value Reference Range Interpretation Comments Potassium (test code = 2823-3) 5.1 meq/L 3.6-5.5 Lab Interpretation (test code = Normal 33520-3) [facility] CaliforniaPOTASSIUM-STAT [id number] 21:37:21 Test Item Value Reference Range Interpretation Comments POTASSIUM (BEAKER) (test code = 5.1 meq/L 3.6-5.5 379) Sodium Na-Stat [id number] 21:37:20 Test Item Value Reference Range Interpretation Comments Sodium (test code = 2951-2) 136 meq/L 136-145 Lab Interpretation (test code = Normal 53114-7) [facility] [id number] 21:37:20 Test Item Value Reference Range Interpretation Comments Sodium (test code = 2951-2) 136 meq/L 136-145 Lab Interpretation (test code = Normal 66360-1) [facility] HospitalODIUM NA-STAT [id number] 21:37:20 Test Item Value Reference Range Interpretation [...] 0-0 (BEAKER) (test code = 413) POCT-GLUCOSE [id number] 21:12:35 Test Item Value Reference Range Interpretation Comments POC-GLUCOSE METER 225 mg/dL 70-110 H : TESTED A T [facility] 6720 (BEAKER) (test code = [place], 1538) 92468: Manager Web Application/Techni giana ID = [id number] for NATAN CONNELLY LACTIC ACID, [id number] 18:12:02 Test Item Value Reference Range Interpretation Comments LACTATE BLOOD ARTERIAL (2) 3.2 mmol/L 0.5-2.2 H (BEAKER) (test code = 2874) Manager Web Application ID - [id number] 18:10:21 Test Item Value Reference Range Interpretation Comments PARTIAL THROMBOPLASTIN TIME 30.3 seconds 22.5-36.0 (BEAKER) (test code = 760) Bcunnnoyjx6907-22-48 18:10:20 Test Item Value Reference Range Interpretation Comments Fibrinogen (test code = 3255-7) 196 mg/dl 225-434 L Lab Interpretation (test code = Abnormal 51237-7) [facility] CaliforniaFibrinogen2022-03-29 18:10:20 Test Item Value Reference Range Interpretation Comments Fibrinogen (test code = 3255-7) 196 mg/dl 225-434 L Lab Interpretation (test code = Abnormal 43265-9) [facility] CaliforniaFIBRINOGEN2022-03-29 18:10:20 Test Item Value Reference Range Interpretation Comments FIBRINOGEN LEVEL (BEAKER) (test 196 mg/dl 225-434 L code = 658) PROTHROMBIN TIME/[id number] 18:09:58 Test Item Value Reference Range Interpretation Comments PROTIME (BEAKER) 17.6 seconds 11.9-14.2 H (test code = 759) INR (BEAKER) (test 1.47 See_Comment [Automat ed message] code = 370) The system [facility] generated this result transmitted ref erence range: [...] WBC 0-0 (BEAKER) (test code = 413) [id number] 17:36:22 Test Item Value Reference Range Interpretation Comments PHOSPHORUS (BEAKER) (test code = 3.3 mg/dL 2.3-4.7 604) Manager Web Application ID - BSPOCT-GLUCOSE [id number] 16:54:41 Test Item Value Reference Range Interpretation Comments POC-GLUCOSE METER 158 mg/dL 70-110 H : TESTED [facility] T [facility] 6720 (BEAKER) (test code = MARIA GUADALUPE [place], 1538) 87479: Manager Web Application/Techni giana ID = [id number] for SHIV SCHNEIDER (CELLAVISION MANUAL DIFF)2022-01-08 14:49:48 [...] CONCENTRATION Adequate (CELLAVISION)(BEAKER) (test code = 3438) Manager Web Application ID - Poppy Cueto comments: Slide comments:HEPATIC [...] code = 401 U/L 6-55 H 347) Manager Web Application ID - ROSA [id number] 14:29:36 Test Item Value Reference Range Interpretation Comments MAGNESIUM (BEAKER) (test code = 2.2 mg/dL 1.6-2.6 627) Manager Web Application ID - ROSA LBASIC METABOLIC [id number] 14:29:35 Test Item Value Reference Range Interpretation [...] S NOT APPLICABLE FOR DIALYSIS PATIEN TS. Manager Web Application ID - ROSA [id number] 14:29:19 Test Item Value Reference Range Interpretation Comments FIBRINOGEN LEVEL (BEAKER) (test 183 mg/dl 225-434 L code = 658) [id number] 14:24:34 Test Item Value Reference Range Interpretation Comments PARTIAL THROMBOPLASTIN TIME 33.2 seconds 22.5-36.0 (BEAKER) (test code = 760) LACTIC ACID, [id number] 14:24:17 Test Item Value Reference Range Interpretation Comments LACTATE BLOOD ARTERIAL (2) 3.0 mmol/L 0.5-2.2 H (BEAKER) (test code = 2874) Manager Web Application ID - PIAYA LPROTHROMBIN TIME/[id number] 14:23:58 Test Item Value Reference Range Interpretation Comments PROTIME (BEAKER) 17.4 seconds 11.9-14.2 H (test code = 759) INR (BEAKER) (test 1.45 See_Comment [Automat ed message] code = 370) The system [facility] generated this result transmitted ref erence range: <=5.90. The reference range was not used to int erpret this result as normal/abnormal . RECOMMENDED COUMADIN/WARFARIN INR THERAPY RANGESSTANDARD DOSE: 2.0 - 3.0 Includes: PROPHYLAXIS for venous thrombosis, systemic embolization; TREATMENT for venous thrombosis and/or pulmonary embolus.HIGH RISK: Target INR is 2.5-3.5 for patients with mechanical heart valves.Oxygen saturation, dssfwmtc2829-34-05 14:16:14 Test Item Value Reference Range Interpretation Comments O2 Saturation (Measured) (test code = 85.0 % 50205-2) [facility] CaliforniaOxygen saturation, [id number] 14:16:14 Test Item Value Reference Range Interpretation Comments O2 Saturation (Measured) (test code = 85.0 % 27325-0) [facility] CaliforniaOXYGEN SATURATION, [id number] 14:16:14 Test Item Value Reference Range Interpretation Comments O2 SATURATION (MEASURED) (BEAKER) 85.0 % (test code = 1455) BLOOD GAS, [id number] 14:16:14 Test Item Value Reference Range Interpretation [...] = 1819) 50.0 HGB/HCT (H&H) - STAT [id number] 14:16:13 Test Item Value Reference Range Interpretation Comments HEMOGLOBIN (BEAKER) (test code = 10.6 GM/DL 12.0-15.0 L 410) HEMATOCRIT (BEAKER) (test code = 31.0 % 36.0-45.0 L 411) CALCIUM, [id number] 14:16:13 Test Item Value Reference Range Interpretation Comments CALCIUM IONIZED (BEAKER) (test 1.15 mmol/L 1.12-1.27 code = 698) PH, BLOOD (BEAKER) (test code = 7.34 1810) GLUCOSE-STAT [id number] 14:16:07 Test Item Value Reference Range Interpretation Comments GLUCOSE RANDOM (BEAKER) (test code 141 mg/dL 70-110 H = 652) POTASSIUM-STAT [id number] 14:15:57 Test Item Value Reference Range Interpretation Comments POTASSIUM (BEAKER) (test code = 4.0 meq/L 3.6-5.5 379) SODIUM NA-STAT [id number] 14:15:56 Test Item Value Reference Range Interpretation [...] = 413) CBC W/PLT COUNT & AUTO [id number] 14:13:32 Test Item Value Reference Range Interpretation [...] 0-0 (BEAKER) (test code = 413) CALCIUM, [id number] 12:24:18 Test Item Value Reference Range Interpretation Comments CALCIUM IONIZED (BEAKER) (test 1.22 mmol/L 1.12-1.27 code = 698) PH, BLOOD (BEAKER) (test code = 7.41 1810) GLUCOSE-STAT [id number] 12:24:17 Test Item Value Reference Range Interpretation Comments GLUCOSE RANDOM (BEAKER) (test code 154 mg/dL 70-110 H = 652) HGB/HCT (H&H) - STAT [id number] 12:24:17 Test Item Value Reference Range Interpretation Comments HEMOGLOBIN (BEAKER) (test code = 11.1 GM/DL 12.0-15.0 L 410) HEMATOCRIT (BEAKER) (test code = 33.0 % 36.0-45.0 L 411) BLOOD GAS, [id number] 12:24:11 Test Item Value Reference Range Interpretation [...] (BEAKER) (test code = 1819) 100.0 POTASSIUM-STAT [id number] 12:24:01 Test Item Value Reference Range Interpretation Comments POTASSIUM (BEAKER) (test code = 4.0 meq/L 3.6-5.5 379) SODIUM NA-STAT [id number] 12:24:00 Test Item Value Reference Range Interpretation Comments SODIUM (BEAKER) (test code = 381) 135 meq/L 136-145 L GLUCOSE-STAT [id number] 11:43:11 Test Item Value Reference Range Interpretation Comments GLUCOSE RANDOM (BEAKER) (test code 169 mg/dL 70-110 H = 652) HGB/HCT (H&H) - STAT [id number] 11:43:11 Test Item Value Reference Range Interpretation Comments HEMOGLOBIN (BEAKER) (test code = 10.6 GM/DL 12.0-15.0 L 410) HEMATOCRIT (BEAKER) (test code = 31.0 % 36.0-45.0 L 411) CALCIUM, [id number] 11:43:10 Test Item Value Reference Range Interpretation Comments CALCIUM IONIZED (BEAKER) (test 1.10 mmol/L 1.12-1.27 L code = 698) PH, BLOOD (BEAKER) (test code = 7.42 1810) BLOOD GAS, [id number] 11:43:10 Test Item Value Reference Range Interpretation [...] (BEAKER) (test code = 1819) 57.0 POTASSIUM-STAT [id number] 11:42:31 Test Item Value Reference Range Interpretation Comments POTASSIUM (BEAKER) (test code = 3.9 meq/L 3.6-5.5 379) SODIUM NA-STAT [id number] 11:42:30 Test Item Value Reference Range Interpretation Comments SODIUM (BEAKER) (test code = 381) 135 meq/L 136-145 L HGB/HCT (H&H) - STAT [id number] 11:06:50 Test Item Value Reference Range Interpretation Comments HEMOGLOBIN (BEAKER) (test code = 8.1 GM/DL 12.0-15.0 L 410) HEMATOCRIT (BEAKER) (test code = 24.0 % 36.0-45.0 L 411) CALCIUM, [id number] 11:06:49 Test Item Value Reference Range Interpretation Comments CALCIUM IONIZED (BEAKER) (test 0.88 mmol/L 1.12-1.27 L code = 698) PH, BLOOD (BEAKER) (test code = 7.42 1810) BLOOD GAS, [id number] 11:06:49 Test Item Value Reference Range Interpretation [...] (BEAKER) (test code = 1819) 50.0 GLUCOSE-STAT [id number] 11:06:49 Test Item Value Reference Range Interpretation Comments GLUCOSE RANDOM (BEAKER) (test code 161 mg/dL 70-110 H = 652) POTASSIUM-STAT [id number] 11:05:59 Test Item Value Reference Range Interpretation Comments POTASSIUM (BEAKER) (test code = 4.1 meq/L 3.6-5.5 379) SODIUM NA-STAT [id number] 11:05:58 Test Item Value Reference Range Interpretation Comments SODIUM (BEAKER) (test code = 381) 135 meq/L 136-145 L GLUCOSE-STAT [id number] 10:33:52 Test Item Value Reference Range Interpretation Comments GLUCOSE RANDOM (BEAKER) (test code 205 mg/dL 70-110 H = 652) HGB/HCT (H&H) - STAT [id number] 10:33:47 Test Item Value Reference Range Interpretation Comments HEMOGLOBIN (BEAKER) (test code = 10.7 GM/DL 12.0-15.0 L 410) HEMATOCRIT (BEAKER) (test code = 31.0 % 36.0-45.0 L 411) CALCIUM, [id number] 10:33:46 Test Item Value Reference Range Interpretation Comments CALCIUM IONIZED (BEAKER) (test 1.14 mmol/L 1.12-1.27 code = 698) PH, BLOOD (BEAKER) (test code = 7.38 1810) BLOOD GAS, [id number] 10:33:41 Test Item Value Reference Range Interpretation [...] (test code = 1819) 50.0 SODIUM NA-STAT [id number] 10:33:30 Test Item Value Reference Range Interpretation Comments SODIUM (BEAKER) (test code = 381) 136 meq/L 136-145 POTASSIUM-STAT [id number] 10:33:30 Test Item Value Reference Range Interpretation Comments POTASSIUM (BEAKER) (test code = 3.9 meq/L 3.6-5.5 379) HGB/HCT (H&H) - STAT [id number] 10:02:10 Test Item Value Reference Range Interpretation Comments HEMOGLOBIN (BEAKER) (test code = 9.3 GM/DL 12.0-15.0 L 410) HEMATOCRIT (BEAKER) (test code = 27.0 % 36.0-45.0 L 411) CALCIUM, [id number] 10:02:09 Test Item Value Reference Range Interpretation Comments CALCIUM IONIZED (BEAKER) (test 1.07 mmol/L 1.12-1.27 L code = 698) PH, BLOOD (BEAKER) (test code = 7.41 1810) BLOOD GAS, [id number] 10:02:09 Test Item Value Reference Range Interpretation [...] (BEAKER) (test code = 1819) 50.0 GLUCOSE-STAT [id number] 10:02:09 Test Item Value Reference Range Interpretation Comments GLUCOSE RANDOM (BEAKER) (test code 162 mg/dL 70-110 H = 652) SODIUM NA-STAT [id number] 10:00:01 Test Item Value Reference Range Interpretation Comments SODIUM (BEAKER) (test code = 381) 136 meq/L 136-145 POTASSIUM-STAT [id number] 10:00:01 Test Item Value Reference Range Interpretation Comments POTASSIUM (BEAKER) (test code = 4.5 meq/L 3.6-5.5 379) Type and screen, [id number] 09:04:00 Test Item Value Reference Range Interpretation Comments ABO/RH AUTOMATED (BEAKER) (test O POSITIVE code = 2260) Ab Scrn (test code = 890-4) NEGATIVE [facility] ([facility]&H) - STAT [id number] 08:37:45 Test Item Value Reference Range Interpretation Comments HEMOGLOBIN (BEAKER) (test code = 9.9 GM/DL 12.0-15.0 L 410) HEMATOCRIT (BEAKER) (test code = 29.0 % 36.0-45.0 L 411) POTASSIUM-STAT [id number] 08:37:44 Test Item Value Reference Range Interpretation Comments POTASSIUM (BEAKER) (test code = 3.3 meq/L 3.6-5.5 L 379) CALCIUM, [id number] 08:37:38 Test Item Value Reference Range Interpretation Comments CALCIUM IONIZED (BEAKER) (test 1.04 mmol/L 1.12-1.27 L code = 698) PH, BLOOD (BEAKER) (test code = 7.45 1810) BLOOD GAS, [id number] 08:37:26 Test Item Value Reference Range Interpretation [...] (BEAKER) (test code = 1819) 50.0 GLUCOSE-STAT [id number] 08:36:18 Test Item Value Reference Range Interpretation Comments GLUCOSE RANDOM (BEAKER) (test code = 94 mg/dL 70-110 652) SODIUM NA-STAT [id number] 08:36:18 Test Item Value Reference Range Interpretation Comments SODIUM (BEAKER) (test code = 381) 138 meq/L 136-145 POCT-GLUCOSE [id number] 06:32:07 Test Item Value Reference Range Interpretation Comments POC-GLUCOSE METER 98 mg/dL 70-110 : TESTED A T [facility] 6720 (BEAKER) (test code = MARIA [place]UPE [place], 1538) [address]: Manager Web Application/Techni giana ID = [id number] for REGNIA DURÁN SARS-COV2/RT-PCR ([facility])2022-01-03 20:29:14 Test Item Value Reference Range Interpretation Comments SARS-COV2/RT-PCR (test code = Negative Negative 5379186) Negative result for this test determines that [...] of the Act.Testing was performed using t [employer] SARS-CoV-2 assay.Fact Sheet for Healthcare Providers:https://www.LedgerX.brown/clive/RT SARS-CoV-2 HCP Fact Sheet 51- 422406.pdfFact Sheet for Healthcare Patients:https://www.LedgerX.brown/clive/RT SARS-CoV-2 Patient Fact Sheet EN 51-112987O7.pdfCT, PELVIS, WITH IV CONTRAST 2022-01-03 15:22:00REFERRING : DI COTTON MD....1306 CT pelvis to evaluate the sacral bone for metastasis. Abnormality is seen on recent bone scan. Unlisted Reason for Exam - Click Yes and Enter Reason Below->No Will this procedure require oral contrast?->Yes [facility] 1975 Sex: FFINAL REPORT EXAM: CT Pelvis WITH contrast INDICATION: Bone lesion COMPARISON: Nuclear medicine bone scan 12/26/2021, abdominal MRI 11/29/2021TECHNIQUE: Pelvis were scanned utilizing amultidetector helical scanner from the iliac crest to the pubic symphysis after administration of IVcontrast. Coronal and sagittal reformations were obtained. Routine protocol was performed. Scan was performed when during portal venous phase. IV CONTRAST: 100 mL of Isovue-300 ORAL CONTRAST: None COMPLICATIONS: None RADIATION DOSE: Total DLP: 634.09 mGy*cm Estimated effective dose: (DLP x 0.015 x size factor) mSv CTDIvol has been reviewed. It is below the limits set by the Radiation Protocol Committ ee (RPC). FINDINGS: LINES and TUBES: None. GI [...] focal abnormalities in the sacrum on large oxqbl-ct-ogpu coronal MR images from prior abdominal MRI.Minimal degenerative changes of the bilateral sacroiliac joints. No erosive changes or ankylosis to suggest sacroiliitis.Mild degenerative changes ofthe bilateral hips. SOFT TISSUES: Anterior infraumbilical fat and bowel-containing hernia with fascial defect measuring up to 4.1 cm in craniocaudal dimension. IMPRESSION: 1.No acute osseous abnormality or focal osseous lesions to suggest metastatic disease. If clinical concern persists, pelvis MRI with and without contrast would provide more sensitive evaluation however no abnormal bone signal changes on prior abdominal MRI given limited sdrgg-vb-uqeg. 2.Minimal degenerative changes of the bilateral sacroiliac joints. Signed: Ashley Richardseport Verified Date/Time: 01/03/2022 15:22:55 ReadingLocation: [facility] Reading Room [address] [place] [address] [id number] 11:26:29 Test Item Value Reference Range Interpretation Comments Prealbumin (test code = 24 mg/dL 14-45 38575-5) THAI (test code = THAI) Manager Web Application ID - DB Lab Interpretation (test Normal code = 48499-5) [facility] CaliforniaPrealbumin2022-03-21 11:26:29 Test Item Value Reference Range Interpretation Comments Prealbumin (test code = 24 mg/dL 14-45 10385-8) THAI (test code = THAI) Manager Web Application ID - DB Lab Interpretation (test Normal code = 68157-7) [facility] CaliforniaBASIC METABOLIC [id number] 11:26:29 Test Item Value Reference Range Interpretation [...] S NOT APPLICABLE FOR DIALYSIS PATIEN TS. Manager Web Application ID - [id number] 11:26:29 Test Item Value Reference Range Interpretation Comments MAGNESIUM (BEAKER) (test code = 2.2 mg/dL 1.6-2.6 627) Manager Web Application ID - [id number] 11:26:29 Test Item Value Reference Range Interpretation Comments PHOSPHORUS (BEAKER) (test code = 4.0 mg/dL 2.3-4.7 604) Manager Web Application ID - AAHAMIDHEPATIC FUNCTION [id number] 11:26:29 Test Item Value Reference Range Interpretation [...] (test code = 13 U/L 6-55 347) Manager Web Application ID - [id number] 11:26:29 Test Item Value Reference Range Interpretation Comments PREALBUMIN (BEAKER) (test code = 24 mg/dL 14-45 586) Manager Web Application ID - DBURINALYSIS W/ REFLEX URINE [id number] 11:22:16 Test Item Value Reference Range Interpretation [...] = Rare 1585) SOURCE(BEAKER) (test code = 2795) Manager Web Application ID - [auto]Manager Web Application ID - techPROTHROMBIN TIME/[id number] 11:20:46 Test Item Value Reference Range Interpretation Comments PROTIME (BEAKER) 12.6 seconds 11.9-14.2 (test code = 759) INR (BEAKER) (test 0.96 See_Comment [Automat ed message] code = 370) The system [facility] generated this result transmitted ref erence range: <=5.90. The reference range was not used to int erpret this result as normal/abnormal . RECOMMENDED COUMADIN/WARFARIN INR THERAPY RANGESSTANDARD DOSE: 2.0 - 3.0 Includes: PROPHYLAXIS for venous thrombosis, systemic embolization; TREATMENT for venous thrombosis and/or pulmonary embolus.HIGH RISK: Target INR is 2.5-3.5 for patients with mechanical heart valves.CBC W/PLT COUNT & AUTO [id number] 11:11:35 Test Item Value Reference Range Interpretation [...] = 2801) BONE AND/OR JOINT IMAGING, WHOLE [id number] 16:11:00REFERRING : DI COTTON MD....1495Unlisted Reason for Exam - Click Yes and Enter Reason Below->Y esUnlisted Reason for Exam->liver [facility] : 1975 Sex: FFINAL REPORT PROCEDURE: BONE SCAN, WHOLE BODY CPT CODE: 21941 INDICATION: Hepaticmass PROTOCOL: 20.2 mCi of Tc-99m [...] MDReport Verified Date/Time: 12/26/2021 16:11:11 Reading Location: [place] [id number] Reading Room CT, CHEST, WITHOUT [id number] 08:56:00REFERRING : BACDI VALENTINO MD....1495Unlisted Reason for Exam - Click Yes and Enter Reason Below->YesUnlisted Reason for Exam->Liver cancer [facility] : 1975 Sex: FFINAL REPORT CT of the chest, without contrast, 12/26/2021. History: Shortness ofbreath, liver cancer. Comparison: MRI abdomen 11/29/2021. Technique: Multidetector CT scanning of thechest was performed from the level of the thoracic inlet to the upper abdomen without IV or oral contrast. This exam was performed according to our departmental dose-optimization program which includes automated exposure control, adjustment of the mA and/or kV according to patient size and/or use of iterative reconstruction technique. Discussion: Evaluation of the heart and mediastinal structures islimited secondary to lack of intravenous contrast. The heart, aorta, and pulmonary vessels are normal in size. There are scattered nonspecific subcentimeter bilateral axillary and mediastinal nodes. The central airways are patent. Linear opacities are present in the left lower lobe. There is no evidence of consolidation or pleural effusion. The soft tissues and osseous structures are unremarkable. Limited evaluation of the upper abdomen demonstrates opacification and hyperdense lesion in the dome ofthe liver, better evaluated on prior MRI. IMPRESSION:No acute or suspicious pulmonary findings. Signed: Carmel Velasquez Verified Date/Time: 12/26/2021 08:56:46 Reading Location: [facility] Mammo Reading Room TISSUE [id number] 21:46:03Surgical Pathology Report Case: [id number] Authorizing Provider: Prema Guerra NP Collected: 12/14/2021 11:40 AM Ordering Location: [facility] Received: 12/14/2021 02:24 PM SERVICES Pathologist: Zahra Thapa MD Specimen: Biopsy, Liver LIVER, SEGMENT 4 AND 8, LESION MASS, BIOPSY: -WELL-DIFFERENTIATED HEPATOCELLULAR LESION FAVOR HEPATOCELLULAR CARCINOMA, SEE COMMENTSJ/pl Signing Pathologist Direct Phone Line: [phone] signed by Zahra Thapa MD on 12/18/2021 [...] salient slides and agree with the diagnosis 58506 x1; 55482 x1. 10520 M5Uketj lesionLiver biopsyA. Received in formalin and labeled [...] evaluated Immunohistochemistry technical testing was performed at [facility], Pathology Laboratory where it was [...] qualified to perform high complexity clinical laboratory testing.[facility], Department of Pathology, [address] [place] [address], [facility], [facility] of [facility]ology, [address] [place] [address], [facility], Department of Pathology, [address] [place] [address], JU, BIOPSY, [id number] 18:02:00REFERRING : DI COTTON MD....1495Reason for Exam:->Liver lesion [facility] : 1975 Sex: FFINAL [...] use of iterative reconstruction technique. Signed: Denzel Durán MDReport Ricardo ified Date/Time: 12/17/2021 18:02:54 Reading Location: [place] [address] Angio Body Reading Room CBC W/PLT COUNT & AUTO [id number] 08:56:18 Test Item Value Reference Range Interpretation [...] CONCENTRATION Adequate (CELLAVISION)(BEAKER) (test code = 3438) Manager Web Application ID - brent Mccoy comments: Slide comments:PROTHROMBIN TIME/INR 2021-12-14 08:24:56 Test Item Value Reference Range Interpretation Comments PROTIME (BEAKER) 13.4 seconds 11.9-14.2 (test code = 759) INR (BEAKER) (test 1.04 See_Comment [Automat ed message] code = 370) The system [facility] generated this result transmitted ref erence range: <=5.90. The reference range was not used to int erpret this result as normal/abnormal . RECOMMENDED COUMADIN/WARFARIN INR THERAPY RANGESSTANDARD DOSE: 2.0 - 3.0 Includes: PROPHYLAXIS for venous thrombosis, systemic embolization; TREATMENT for venous thrombosis and/or pulmonary embolus.HIGH RISK: Target INR is 2.5-3.5 for patients with mechanical heart valves.POCT-GLUCOSE [id number] 08:05:35 Test Item Value Reference Range Interpretation Comments POC-GLUCOSE METER 166 mg/dL 70-110 H : TESTED A T [facility] 6720 (KIT) (test code [facility], = 1538) [address]: Manager Web Application/Techni giana ID = [id number] for Sherita Vasquez MR, ABDOMEN, WITHOUT / WITH IV [id number] 13:54:00REFERRING : DI COTTON MD....1495Unlisted Reason for Exam - Click Yes and Enter Reason Below->YesUnlisted Reason for Exam->Liver mass [facility] : 1975 Sex: FFINAL [...] fatty infiltration of the liver Signed: Hemal Flores MDReport Verified Date/Time: 12/04/2021 13:54:02 Reading Location: [facility] Diagnostic Imaging Reading Room - [place] [address] Cancer Antigen 125 (CA 125)2021-11-19 16:13:21 Test Item Value Reference Range Interpretation Comments CA 125 (test 5 U/mL <35 This test was code = performed using the 7997890) Kisha Nunda Chemiluminescen t method.Values o btained from different assay methods cannot be used interchangeably .CA 125 levels, regardl ess of value, should n ot be interpreted as absoluteevidenc e of the presence or abs ence of disease. THAI (test Performing Lab EZ code = THAI) [facility] [address] [place] [address] Vijay Puckett MD, PhD, DONNA [facility] CaliforniaCarbohydrate antigen 19-9 (CA 19-9)2021-11-19 14:38:32 Test Item Value Reference Range Interpretation Comments CA 19-9 8 U/mL <34 This test was (test code = performed using the 91334-0) Siemens Chemiluminescen t method.Values o btained from different assay methods cannot be used interchangeably .CA19-9 levels, regardl ess of value, should n ot be interpreted as absoluteevidenc e of the presence or abs ence of disease. THAI (test Performing Lab EZ code = THAI) [facility] [address] [place] [address] Vijay Puckett MD, PhD, DONNA [facility] W/PLT COUNT & AUTO [id number] 13:31:42 Test Item Value Reference Range Interpretation [...] CONCENTRATION Increased (CELLAVISION)(BEAKER) (test code = 3438) Manager Web Application ID - Lorena Romero comments: Slide comments:URINALYSIS W/ REFLEX URINE [id number] 13:19:39 Test Item Value Reference Range Interpretation [...] = Occasional 1585) SOURCE(BEAKER) (test code = 2795) Manager Web Application ID - [auto]Manager Web Application ID - techCarcinoembryonic Antigen (CEA)2021-11-15 13:18:29 Test Item Value Reference Range Interpretation Comments CEA, SERUM (test code = 1.5 ng/mL 0.0-5.0 2039-03) THAI (test code = THAI) Manager Web Application ID - ROSA L Lab Interpretation (test Normal code = 72727-9) [facility] CaliforniaCARCINOEMBRYONIC ANTIGEN (CEA)2021-11-15 13:18:29 Test Item Value Reference Range Interpretation Comments CARCINOEMBRYONIC ANTIGEN (BEAKER) 1.5 ng/mL 0.0-5.0 (test code = 685) Manager Web Application ID - ROSA LALPHA FETOPROTEIN (AFP), TUMOR [id number] 13:18:29 Test Item Value Reference Range Interpretation Comments ALPHA-FETOPROTEIN (BEAKER) (test 2.5 ng/mL <10.0 code = 1094) Manager Web Application ID - ROSA LBASIC METABOLIC [id number] 13:04:48 Test Item Value Reference Range Interpretation [...] S NOT APPLICABLE FOR DIALYSIS PATIEN TS. Manager Web Application ID - ROSA [id number] 13:04:48 Test Item Value Reference Range Interpretation Comments MAGNESIUM (BEAKER) (test code = 2.1 mg/dL 1.6-2.6 627) Manager Web Application ID - ROSA [id number] 13:04:48 Test Item Value Reference Range Interpretation Comments PHOSPHORUS (BEAKER) (test code = 4.2 mg/dL 2.3-4.7 604) Manager Web Application ID - ROSA LHEPATIC FUNCTION [id number] 13:04:48 Test Item Value Reference Range Interpretation [...] (test code = 14 U/L 6-55 347) Manager Web Application ID - ROAS [id number] 13:04:48 Test Item Value Reference Range Interpretation Comments PREALBUMIN (BEAKER) (test code = 26 mg/dL 14-45 586) Manager Web Application ID - ROSA LPROTHROMBIN TIME/[id number] 12:55:00 Test Item Value Reference Range Interpretation Comments PROTIME (BEAKER) 13.2 seconds 11.9-14.2 (test code = 759) INR (BEAKER) (test 1.02 See_Comment [Automat ed message] code = 370) The system [facility] generated this result transmitted ref erence range: <=5.90. The reference range was not used to int erpret this result as normal/abnormal . RECOMMENDED COUMADIN/WARFARIN INR THERAPY RANGESSTANDARD DOSE: 2.0 - 3.0 Includes: PROPHYLAXIS for venous thrombosis, systemic embolization; TREATMENT for venous thrombosis and/or pulmonary embolus.HIGH RISK: Target INR is 2.5-3.5 for patients with mechanical heart valves.[id number] 15:11:00 Test Item Value Reference Range Interpretation Comments FERRITIN (test code = 58 ng/mL 15-764 9340047) THAI (test code = THAI) Performed at: [facility] [id number] Director: Jun Sarabia MD, Phone: [phone] [facility] CenterIRON+TIBC+%[id number] 15:11:00 Test Item Value Reference Range Interpretation Comments TIBC (test code = 361 ug/dL 250-124 3213628) UIBC (test code = 324 ug/dL 131-014 1892099) IRON (test code = 37 ug/dL 27-763 1782226) IRON SATURATION % (test 10 % 15-55 L code = 291) THAI (test code = THAI) Performed at: [facility] [address] [id number] Director: Jun Sarabia MD, Phone: [phone] Lab Interpretation (test Abnormal code = 58441-0) [facility] CenterCBC W/AUTO DIFF WITH [id number] 13:09:00 Test Item Value Reference Range Interpretation Comments WHITE BLOOD CELL See_Comment [Automated COUNT (test code = message] The 6690-2) system which generated this result transmitted reference range : 3.4 - 10.8 x10E3/uL. The reference range was not used to interpret this result as normal/abnormal . RED BLOOD CELL COUNT See_Comment [Autom ated (test code = 12998-2) messag e] The system which generated this result transmitted reference range : 3.77 - 5.28 x10E6/uL. The reference range was not used to interpret this result as normal/abnormal . HEMOGLOBIN (test code 12.0 g/dL 11.1-15.9 = 91507-9) HEMATOCRIT (test code 38.3 % 34.0-46.6 = 89662-9) MEAN CORPUSCULAR 73 fL 79-97 L VOLUME [...] ated COUNT (test code = message] The 471-2) system which generated this result transmitted reference range : 0.0 - 0.4 x10E3/uL. The reference range was not used to interpret this result as normal/abnormal . BASOPHILS ABSOLUTE See_Comment [Automat ed COUNT (test code = message] The 074-7) system which generated this result transmitted reference range : 0.0 - 0.2 x10E3/uL. The reference range was not used to interpret this result as normal/abnormal . IMMATURE GRANULOCYTES 1 % Not Estab. (test code = 13019-0) IMMATURE GRANS (ABS) See_Comment [Autom ated (test code = 9987) message] The system which generated this result transmitted reference range : 0.0 - 0.1 x10E3/uL. The reference range was not used to interpret this result as normal/abnormal . THAI (test code = THAI) Performed at: 01 - [facility] [address] [place], [place] [id number] Director: uJn Sarabia MD, Phone: [phone] Lab Interpretation Abnormal (test code = 77605-5) [facility] CenterTISSUE [id number] 14:52:03Surgical Pathology Report Case: [id number] Authorizing Provider: Prema Guerra NP Collected: 09/20/2021 01:45 PM Ordering Location: [facility] Received: 09/20/2021 04:07 PM SERVICES Pathologist: Zahra Thapa MD Specimen: Biopsy, Liver LIVER, LESION, TARGETED NEEDLE CORE BIOPSY: - NO FEATURES OF HEPATOCELLULAR LESION OR MALIGNANCY IDENTIFIED - MILD STEATOSIS - MILD LOBULAR INFLAMMATION - SEE COMMENT Signing Pathologist Direct Phone Line: [phone] signed by Zahra Thapa MD on 09/25/2021 at 2:52 PM Comment: This may represent a misrepresentative sampling. If clinically suspicious, repeat biopsy is suggested. 8307, 28487, 53022g3U. LiverA. Received in formalin, labeled with the [...] evaluated Immunohistochemistry technical testing was performed at [facility], Pathology Laboratory where it was developed and its performance characteristics were determined. Ithas not been cleared or approved by the U.S. Food and Drug Administration. The FDA has determined that such clearance or approval is not necessary. The test is used for clinical purposes. It should notbe regarded as investigational or for research. This laboratory is certified under the Clinical Laboratory Improvement Amendments of 1988 (CLIA-88) as qualified to perform high complexity clinical laboratory testing.[facility], Department of Pathology, [address] [place] [address], [facility], [address] [place] [address], [facility], [facility] of [facility]ology,[address] [place] [address], N/S, BIOPSY, [id number] 14:38:00REFERRING : DI COTTON MD....[id number] biopsy liver lesion seen on recent MRI.Reason for Exam:-&g t;Liver lesionMADERA COMMUNITY [facility]ITALName: [facility]AR[facility] R[facility]OS : 1975 Sex: FFINAL [...] Totalintra-service time of sedation was 30 minutes. Overcoiler: Rocio. Grain Spouter: None. Estimated Blood Loss: 2cc. Specimen: 3 [...] was sent in good condition to the [facility] for vital sign monitoring and bed rest. Impression: Successful and uncomplicated ultrasound guided liver mass core biopsy performed with conscious sedation. Signed: Carmel Velasquez Verified Date/Time: 09/20/2021 14:38:18 Reading Location: [address] Body Reading Room Electronicallysigned by: CARMEL VELASQUEZ M.D. on 09/20/2021 02:38 PM (CELLAVISION MANUAL DIFF)2021-09-20 13:31:51 Test Item Value [...] CONCENTRATION Increased (CELLAVISION)(BEAKER) (test code = 3438) Manager Web Application ID - Jinny Scott comments: Slide comments:CBC W/PLT COUNT & AUTO [id number] 13:31:50 Test Item Value Reference Range Interpretation [...] (BEAKER) (test code = 413) BASIC METABOLIC [id number] 09:54:06 Test Item Value Reference Range Interpretation [...] S NOT APPLICABLE FOR DIALYSIS PATIEN TS. Manager Web Application ID - VERA MHEPATIC FUNCTION [id number] 09:54:06 Test Item Value Reference Range Interpretation [...] (test code = 12 U/L 6-55 347) Manager Web Application ID - VERA MPROTHROMBIN TIME/[id number] 09:40:02 Test Item Value Reference Range Interpretation Comments PROTIME (BEAKER) 13.3 seconds 11.9-14.2 (test code = 759) INR (BEAKER) (test 1.03 See_Comment [Automat ed message] code = 370) The system [facility] generated this result transmitted ref erence range: <=5.90. The reference range was not used to int erpret this result as normal/abnormal . RECOMMENDED COUMADIN/WARFARIN INR THERAPY RANGESSTANDARD DOSE: 2.0 - 3.0 Includes: PROPHYLAXIS for venous thrombosis, systemic embolization; TREATMENT for venous thrombosis and/or pulmonary embolus.HIGH RISK: Target INR is 2.5-3.5 for patients with mechanical heart valves.POCT-GLUCOSE [id number] 09:25:25 Test Item Value Reference Range Interpretation Comments POC-GLUCOSE METER 151 mg/dL 70-110 H : Notified RN/: (SAMYISAMAR) (test code = TESTED AT [facility] [id number]) [facility], [address]: Manager Web Application/Techni giana ID = [id number] for WENDY MYLES MR, ABDOMEN, [id number] 12:15:00REFERRING : BACDI VALENTINO MD....1495Include Abdominal VesselsUnlisted Reason for Exam - Click Yes and Enter Reason Below->NoMADERA COMMUNITY [facility]OSPITALName: DAREN RÍOS : 1975 Sex: FFINAL [...] MDReport Verified Date/Time: 09/02/2021 12:15:04 Reading Location: [facility] B1 C013Y CT Body Reading Room Electronically signed by: HEMAL FLORES MD on 112:15 PMPROTHROMBIN TIME/[id number] 17:25:35 Test Item Value Reference Range Interpretation Comments PROTIME (BEAKER) 12.3 seconds 11.9-14.2 (test code = 759) INR (BEAKER) (test 0.93 See_Comment [Automat ed message] code = 370) The system [facility] generated this result transmitted ref erence range: [...] 1.5 ng/mL 0.0-5.0 (test code = 685) Manager Web Application ID - BSALPHA FETOPROTEIN (AFP), TUMOR [id number] 17:10:51 Test Item Value Reference Range Interpretation Comments ALPHA-FETOPROTEIN (BEAKER) (test 2.5 ng/mL <10.0 code = 1094) Manager Web Application ID - BS(CELLAVISION MANUAL DIFF)2021-08-28 17:05:54 Test [...] CONCENTRATION Increased (CELLAVISION)(BEAKER) (test code = 3438) Manager Web Application ID - Poppy Cueot comments: Slide comments:[id number] 16:51:53 Test Item Value Reference Range Interpretation Comments MAGNESIUM (BEAKER) (test code = 2.1 mg/dL 1.6-2.6 627) Manager Web Application ID - [id number] 16:51:53 Test Item Value Reference Range Interpretation Comments PHOSPHORUS (BEAKER) (test code = 4.8 mg/dL 2.3-4.7 H 604) Manager Web Application ID - BSHEPATIC FUNCTION [id number] 16:51:53 Test Item Value Reference Range Interpretation [...] (test code = 12 U/L 6-55 347) Manager Web Application ID - BSGAMMA GLUTAMYL TRANSFERASE (GGT)2021-08-28 16:51:53 Test Item Value Reference Range Interpretation Comments GAMMA GLUTAMYL TRANSFERASE (BEAKER) 85 U/L 9-64 H (test code = 364) Manager Web Application ID - BSBASIC METABOLIC [id number] 16:51:52 Test Item Value Reference Range Interpretation [...] S NOT APPLICABLE FOR DIALYSIS PATIEN TS. Manager Web Application ID - BSCBC W/PLT COUNT & AUTO [id number] 16:38:34 Test Item Value Reference Range Interpretation [...] 0-0 (BEAKER) (test code = 413) TISSUE [id number] 17:37:00Surgical Pathology Report Case: [id number] Authorizing Provider: Lucy Resendiz MD Collected: 05/17/2021 09:09 AM Ordering Location: [facility] PERIOPERATIVE Received: 05/17/2021 09:57 AM SERVICES Pathologist: Victoria Pavon MD Specimen: Uterus w/Cervix & Bilateral Fallopian Tubes UTERUS, CERVIX, BILATERAL FALLOPIAN TUBES, HYSTERECTOMY AND BILATERAL SALPINGECTOMY:- WEIGHT: 224 GRAMS- CERVIX: MILD CHRONIC INFLAMMATION, NEGATIVE FOR DYSPLASIA- ENDOMETRIUM: BENIGN ENDOMETRIAL POLYP, NEGATIVE FOR ATYPIA AND MALIGNANCY- MYOMETRIUM: SUBSEROSAL LEIOMYOMA (6 CM), CALCIFIED- SEROSA: NO HISTOPATHOLOGIC ABNORMALITY- FALLOPIAN TUBES: RIGHT PARATUBAL CYST, LEFT TUBE UNREMARKABLE Signing Pathologist Direct Phone Line: [phone] signed by Victoria Pavon MD on 05/22/2021 at 5:37 [id number], [id number] mass Uterus with cervix and bilateral fallopian [...] measures 7.2 cm in length and 0.8 cmin diameter and contains no abnormalities.The uterine serosa is tran-villalobos and contains a large, tran-white, protuberance from the serosal surface on the anterior fundic portion of the specimen. This massmeasures 6 x 6 x 3.8 cm. The [...] diameter tran-white endocervical canal, which is covered in unremarkable mucosa. The endometrial cavity is slightly compressed by the previously described subserosal nodule and measures 4.5 x 0.8 cm. There is a small area of mucosal fullness/polyp in the loweruterine segment on the anterior half measuring 1 x 0.5 x 0.5 cm. Serial section of the endometrial mucosa is tran-white, homogeneous and unremarkable measuring approximately 0.1 cm throughout. Serial sectioning of the myometrium reveals it measures 2 cm in greatest thickness and is unremarkable. Serial sectioning of the aforementioned subserosal nodule shows a tran-white and homogeneous cut surface with punctate calcifications but no areas of hemorrhage or necrosis. Marine Cargo Surveyor sections are submitted according to section code.Section code:A1, anterior cervixA2, posterior cervixA3, anterior lower ut erine segment with area of heaped up mucosa A4, posterior lower uterine segment A5, anterior endomyometrium and serosaA6, posterior endomyometrium and serosaA7- A11, sales representative cash registers sections of large subserosal nodule with areas of calcifications, submitted after uupstaicakehnctK83, right fallopian tubefimbriae entirely submitted, cross sections of tube, representatively submitted A13 left fallopian tube fimbriae entirely submitted, cross sections of tube representatively submitted Z/ewPerformed.[facility], Department of Pathology, [address] [place], [place] [address], [facility]md[facility], Department of [facility]ology, [address] [place] [address], [address] [facility], Department of Pathology, [address] [place] [address], [id number] 10:40:00Medical Cytology Report Case: [id number] Authorizing Provider: Lucy Resendiz MD Collected: 05/17/2021 08:55 AM Ordering Location: [facility] PERIOPERATIVE Received: 05/17/2021 09:31 AM SERVICES Pathologist: Janene Greenwood MD Specimen: Pelvic PELVIC WASHING (CYTOSPINS): - NEGATIVE FOR MALIGNANCY Signing Pathologist Direct Phone Line: [phone] signed by Janene Greenwood MD on 05/21/2021 at 10:40 AMPlease see surgical pathology case [id number] post laparoscopy, history of adnexal mass.PELVIC WASHINGReceived 40 mls bloody fluid; prepared 4 cytospins. [address]formed. Satisf[address]St[address], Department of Pathology, [address] [place], [place] [address], [facility]fd[facility], Department of Pathology, [address] [place] [address], [address] [facility], Department of Pathology, [address] [place] [address], NTGS-GLUCOSE [id number] 10:11:00 Test Item Value Reference Range Interpretation Comments POC-GLUCOSE METER 174 mg/dL 70-110 H : TESTED A T [facility] [address] (BEAKER) (test code [facility] [address] = [address]) [place] [address]: Manager Web Application/Techni giana ID = [id number] for Tami Macario POCT-GLUCOSE [id number] 07:26:00 Test Item Value Reference Range Interpretation Comments POC-GLUCOSE METER 92 mg/dL 70-110 : TESTED A T [facility] [address] (BEAKER) (test code = [address], [address]) [facility] [address]: Manager Web Application/Techni giana ID = [id number] for Efrain Benjamin SCREEN, [id number] 07:02:00 Test Item Value Reference Range Interpretation Comments TEST URINE (BEAKER) (test Negative code = 583) SARS-COV2/RT-PCR ([facility])2021-05-14 14:20:00 Test Item Value Reference Range Interpretation Comments SARS-COV2/RT-PCR Negative Negative The SARS-Co V-2 target (test code = 1893043) nuclei c acids are not detected in [...] Xpress SARS-CoV-2/Flu/RSV by their healthcareprovider. Results from [facility] Xpert Xpress SARS-CoV-2/Flu/RSV test should be correlated [...] of the Act.Fact Sheet for Healthcare Providers:https ://www.[facility]/Documents/Xpert%20Xpress%20SARS%20CoV-2/Fact%20Sheets/302-390 2%22ZSXV-TBU-5%20HEALTHCARE%20PROVIDERS%20FACT%20SHEET.pdfFact Sheet for Healthcare Patients:https://www.[facility]/Docum ents/Xpert%20Xpress%20SARS%20Cov-2/Fact%20Sheets/302-3801%67NWAY-JZD-6%20PATIENT %20FACT%20SHEET.pdfCBC W/PLT COUNT & AUTO [id number] 13:26:00 Test Item Value Reference Range Interpretation [...] code = 1+ few 961) BASIC METABOLIC [id number] 12:47:00 Test Item Value Reference Range Interpretation [...] S NOT APPLICABLE FOR DIALYSIS PATIEN TS. Manager Web Application ID - [id number] ID - mqtu56Pzitvsld ID - moeb35Tpitgzfp ID - ubxv11Pjeuuowi ID - glyg77Gadvhxcu ID - wcad82Xejksksx ID - etiq35Rujdwbrk ID - lpib88Bpsyerlz ID - mubl28Aqpodvzu ID - ovpg53Rmramxua ID - xpgc34Ibjhqyde ID - dula16Qyhbmeukyzl [Units/volume] in Serum or [id number] 12:28:00 Test Item Value Reference Range Interpretation Comments Thyrotropin [Units/volume] in 1.53 uIU/mL 0.36-3.74 Serum or Plasma (test code = 3016-3) [facility] HospitalThyroxine (T4) free [Mass/volume] in Serum or Plasma 2021-04-24 12:28:00 Test Item Value Reference Range Interpretation Comments free T4 (test code = free T4) 0.90 NG/dL 0.93-1.7 L [facility] HospitalTriiodothyronine (T3) Free [Mass/volume] in Serum or [id number] 12:28:00 Test Item Value Reference Range Interpretation Comments free T3 (test code = free T3) 2.16 pg/mL 2.0-4.4 [facility] HospitalAMOEBA [id number] 09:18:00 Test Item Value Reference Range Interpretation Comments SCAN RESULT (test code = 5733208) See scanned reportMISCELLANEOUS LAB [id number] 08:19:00 Test Item Value Reference Range Interpretation Comments SCAN RESULT (test code = 3113091) See scanned reportMISCELLANEOUS LAB [id number] 10:29:00 Test Item Value Reference Range Interpretation Comments SCAN RESULT (test code = 7745870) See scanned reportHEPATITIS B SURFACE [id number] 12:16:00 Test Item Value Reference Range Interpretation Comments HEPATITIS B SURFACE ANTIGEN (2) Nonreactive Nonreactive (BEAKER) (test code = 2585) Specimen is considered negative for HBsAg.HEPATITIS C [id number] 12:16:00 Test Item Value Reference Range Interpretation Comments HEPATITIS C ANTIBODY (BEAKER) Nonreactive Nonreactive (test code = 367) Manager Web Application ID - JINNY FHEPATITIS B SURFACE [id number] 12:06:00 Test Item Value Reference Range Interpretation Comments HEPATITIS B SURFACE ANTIBODY 11.4 mIU/mL <8.0 H (BEAKER) (test code = 647) Manager Web Application ID - JINNY FCARCINOEMBRYONIC ANTIGEN (CEA)2021-02-26 12:04:00 Test Item Value Reference Range Interpretation Comments CARCINOEMBRYONIC ANTIGEN (BEAKER) 1.2 ng/mL 0.0-5.0 (test code = 685) Manager Web Application ID - JINNY FALPHA FETOPROTEIN (AFP), TUMOR [id number] 12:04:00 Test Item Value Reference Range Interpretation Comments ALPHA-FETOPROTEIN (BEAKER) (test 2.1 ng/mL <10.0 code = 1094) Manager Web Application ID - JINNY FHEPATITIS B CORE ANTIBODY, [id number] 12:04:00 Test Item Value Reference Range Interpretation Comments HEPATITIS B CORE TOTAL ANTIBODY Nonreactive Nonreactive (BEAKER) (test code = 497) Manager Web Application ID - JINNY FHEPATITIS A ANTIBODY, [id number] 12:04:00 Test Item Value Reference Range Interpretation Comments HEPATITIS A IGG ANTIBODY (BEAKER) Nonreactive Nonreactive (test code = 2797) Manager Web Application ID - JINNY [id number] 11:52:00 Test Item Value Reference Range Interpretation Comments PREALBUMIN (BEAKER) (test code = 25 mg/dL 14-45 586) Manager Web Application ID Ly MARS FHEPATIC FUNCTION [id number] 11:36:00 Test Item Value Reference Range Interpretation [...] (test code = 14 U/L 6-55 347) Manager Web Application ID Ly MARS FBASIC METABOLIC [id number] 11:36:00 Test Item Value Reference Range Interpretation [...] S NOT APPLICABLE FOR DIALYSIS PATIEN TS. Manager Web Application ID Ly MARS [id number] 11:36:00 Test Item Value Reference Range Interpretation Comments MAGNESIUM (BEAKER) (test code = 2.2 mg/dL 1.6-2.6 627) Manager Web Application ID - JINNY [id number] 11:36:00 Test Item Value Reference Range Interpretation Comments PHOSPHORUS (BEAKER) (test code = 4.1 mg/dL 2.3-4.7 604) Manager Web Application ID Ly MARS FCBC W/PLT COUNT & AUTO [id number] 11:28:00 Test Item Value Reference Range Interpretation [...] PERCENT (BEAKER) (test code = 2801) PROTHROMBIN [id number] 11:26:00 Test Item Value Reference Range Interpretation Comments PROTIME (BEAKER) 12.9 seconds 11.9-14.2 (test code = 759) INR (BEAKER) (test 1.00 See_Comment [Automat ed message] code = 370) The system [facility] generated this result transmitted ref erence range: [...] 13:09:15CT abdomen and pelvis with contrastLocation Code: M2FROYUXFT HISTORY: [id number]: Abdominal painCOMPARISON: NoneTechnique: Helical CT of the [...] Previous cholecystectomy.3. Fibroid uterus.GENERAL CHEMISTRY 13 *OW* [id number] 12:47:00 Test Item Value Reference Range Interpretation [...] 27 U/L 14-97 [employer] 8 Panel *OW* [id number] 12:35:00 Test Item Value Reference Range Interpretation [...] *OW*2018-12-15 11:16:14Left clavicle series, 2 viewsLocation Code: W6Lkllnvng history: Follow-up fractureComments: AP and lo rdotic views of the left clavicle demonstrates nosignificant interval callus formation of the mildlydisplaced midclavicularfracture when compared to 11/17/18. Acromioclavicular joint is intact. Smallfocus of calcific tendinitis seen adjacent to the humeral head.Impression:1. Stable displaced midclavicular fracture without significant callusformation.XR CLAVICLE LEFT COPLETE 2 VIEWS *OW*2018-11-17 11:42:09Left clavicle series, 2 viewsLocation Code: T6Zzeljmnc history: midshaft fxComparison: 11/02/2018Comments: AP and lordotic views of the left clavicle were obtained. Middiaphyseal fracture with 2 full shaft width inferior displacement is unchanged.There is sclerosis of the fracture margins with no new callus formation.Demonstrate no acute fracture or malalignment. The acromioclavicular andglenohumeral joints are intact.Impression: Stable inferiorly displaced left mid clavicle fracture.[facility]/S [id number] 10:33:09Thyroid ultrasoundLocation code: D5Hxacqjmm history: THYROID NODComparison: NoneTechnique: Grayscaleand selective color [...] axial images were obtained through the chest otxx504 mL nonionic IV contrast using the routine [...] 14:42:43HISTORY: MVA, arm pain, chest painLocation code: W0KGESTDTFO: LEFT HUMERUS, 2 VIEWS.LEFT ELBOW, 2 VIEWS.COMPARISON: [...] 14:42:43HISTORY: MVA, arm pain, chest painLocation code: E8FHNIJUVUB: LEFT HUMERUS, 2 VIEWS.LEFT ELBOW, 2 VIEWS.COMPARISON: [...] = PGS) NEGATIVE NEGATIVE CBC (INCLUDES AUTOMATED DIFFERENTIAL)*[id number] 13:26:00 Test Item Value Reference Range Interpretation [...]
[2022-12-07 19:28] LABS: Absolute Lymphocytes (CBC) 2.1 K/uL (0.7-4.9); Hematocrit 36.2 % (36.0-45.0); Lymphocytes % 23.4 % (15.3-44.8); MCV 80.8 fL (80-100); MPV 6.8 fL (7.6-11.3); RBC Red Blood Cell Count 4.48 M/uL (3.86-4.86)
[2022-12-07 19:45] LABS: Albumin 3.6 g/dL (3.4-5.0); Bilirubin Total 1.7 mg/dL (0.2-1.0); Potassium 3.2 mmol/L (3.5-5.1); Protein, Total 9.9 g/dL (6.4-8.2)
[2022-12-07] MEDS ORDERED: NA CHLORIDE 0.9% 500 ML ONE ×2 (19:48→20:02)
[2022-12-07] MEDS ORDERED: KCL 20 MEQ/100 mL IVPB 100 ML IV ONE (20:02)
[2022-12-07 20:21] LABS: Urine Blood Negative (Negative); Urine Glucose Trace (Negative); Urine Protein Negative (Negative); Urine pH 5.5 (5.0-7.0)
[2022-12-07 20:29] LABS: Urine Bacteria <20 /HPF (<20); Urine RBC <5 /HPF (None Seen)
--- NOTE | 2022-12-07 22:02 | ER ---
Nurse's Notes [facility] Name: Frida Arriola Age: 47 yrs Sex: Female : 1975 Arrival Date: 12/07/2022 Time: 18:26 Bed 4 Private MD: Diagnosis: Dehydration;Hypokalemia Presentation: 12/07 18:28 Chief complaint: Patient states: "My heart rate was 120 and my pressure was up so I hb took extra metoprolol for my high blood pressure but I didn't take it before so I don't know what it was." Has liver CA, had chemo last Friday. Coronavirus screen: At this time, the client does not indicate any symptoms associated with coronavirus-19. Ebola Screen: No symptoms or risks identified at this time. Initial Sepsis Screen: Does the patient meet any 2 criteria? No. Patient's initial sepsis screen is negative. Does the patient have a suspected source of infection? No. Patient's initial sepsis screen is negative. Risk Assessment: Do you want to hurt yourself or someone else? Patient reports no desire to harm self or others. Onset of symptoms was December 07, 2022. 18:28 Method Of Arrival: Ambulatory hb 18:28 Acuity: ISI 3 hb Historical: - Allergies: 18:31 No Known Allergies; hb - Immunization history:: Adult Immunizations unknown. - Social history:: Smoking status: unknown. Screenin:58 [facility] ED Fall Risk Assessment (Adult) History of falling in the last 3 months, ph including since admission No falls in past 3 months (0 pts) Confusion or Disorientation No (0 pts) Intoxicated or Sedated No (0 pts) Impaired Gait No (0 pts) Mobility Assist Device Used No (0 pt) Altered Elimination No (0 pt) Score/Fall Risk Level 0 - 2 = Low Risk Oriented to surroundings, Maintained a safe environment, Hourly rounding (assess needs \\T\\ fall precautionary measures) done. Abuse screen: Denies threats or abuse. Denies injuries from another. Nutritional screening: No deficits noted. Tuberculosis screening: No symptoms or risk factors identified. Assessment: 18:59 General: Appears in no apparent distress. comfortable, Behavior is calm, cooperative, ph appropriate for age. Pain: Denies pain. Neuro: Level of Consciousness is awake, alert, obeys commands, Oriented to person, place, time, situation. Cardiovascular: Capillary refill < 3 seconds in bilateral fingers Patient's skin is warm and dry. Respiratory: Airway is patent Respiratory effort is even, unlabored, Respiratory pattern is regular, symmetrical. Derm: Skin is healthy with good turgor, Skin is pink, warm \\T\\ dry. 19:22 General: Appears in no apparent distress. comfortable, Behavior is calm, cooperative. lg3 Pain: Denies pain. Neuro: No deficits noted. Mendoza Agitation-Sedation Scale (RASS): 0 - Alert and Calm Level of Consciousness is awake, alert, obeys commands, Oriented to person, place, time, situation. Cardiovascular: No deficits noted. Denies chest pain, Capillary refill < 3 seconds Clubbing of nail beds is absent JVD is absent Patient's skin is warm and dry. Respiratory: No deficits noted. Airway is patent Trachea midline Respiratory effort is even, unlabored, Respiratory pattern is regular, symmetrical, Breath sounds are clear bilaterally. GI: No deficits noted. No signs and/or symptoms were reported involving the gastrointestinal system. Abdomen is round non-distended. : No deficits noted. No signs and/or symptoms were reported regarding the genitourinary system. EENT: No deficits noted. No signs and/or symptoms were reported regarding the EENT system. Derm: No deficits noted. No signs and/or symptoms reported regarding the dermatologic system. Skin is intact, is healthy with good turgor, Skin is dry, Skin is normal. Musculoskeletal: No deficits noted. No signs and/or symptoms reported regarding the musculoskeletal system. Circulation, motion, and sensation intact. Range of motion: intact in all extremities. 20:21 Reassessment: Patient appears in no apparent distress at this time. No changes from lg3 previously documented assessment. Patient and/or family updated on plan of care and expected duration. Pain level reassessed. Patient is alert, oriented x 3, equal unlabored respirations, skin warm/dry/pink. 20:36 Reassessment: Patient is alert, oriented x 3, equal unlabored respirations, skin ke1 warm/dry/pink. Patient states feeling better. Patient states symptoms have improved. 21:00 Reassessment: Patient c/o pain on IV site despite lowering the rate of K infusion , ke1 unable to get full dose, VAN OWNER OPERATOR notified new order PO. 22:16 Reassessment: Patient appears in no apparent distress at this time. No changes from lg3 previously documented assessment. Patient and/or family updated on plan of care and expected duration. Pain level reassessed. Patient is alert, oriented x 3, equal unlabored respirations, skin warm/dry/pink. Patient states feeling better. Patient states symptoms have improved. Pain: Denies pain. Vital Signs: 18:28 BP 129 / 86; Pulse 97; Resp 16; Temp 97.4; Pulse Ox 100% on R/A; Weight 86.18 kg; hb Height 5 ft. 5 in. (165.10 cm); Pain 0/10; 19:52 BP 128 / 87; Pulse 94; Resp 20; Pulse Ox 100% on R/A; lg3 20:36 BP 140 / 83; Pulse 92; Resp 22; Pulse Ox 100% ; Pain 0/10; ke1 21:39 BP 143 / 89; Pulse 82; Resp 19; Pulse Ox 100% on R/A; Pain 0/10; lg3 22:17 BP 139 / 89; Pulse 83; Resp 19 S; Pulse Ox 100% on R/A; Pain 0/10; lg3 18:28 Body Mass Index 31.62 (86.18 kg, 165.10 cm) hb ED Course: 18:26 Patient arrived in ED. ja2 18:31 Triage completed. hb 18:31 [facility]in Norman [facility]C [facility]. snw 18:31 Timothy Silva MD is Attending Physician. snw 18:31 Arm band placed on. hb 18:59 Patient has correct armband on for positive identification. Bed in low position. Call ph light in reach. Side rails up X 1. Pulse ox on. NIBP on. 18:59 Patient maintains SpO2 saturation greater than 95% on room air. ph 19:22 Client placed on continuous cardiac and pulse oximetry monitoring. NIBP monitoring lg3 applied. frit coater on. Door closed. Noise minimized. Warm blanket given. Family accompanied patient. 19:22 Inserted saline lock: 20 gauge in left antecubital area, using aseptic technique. Blood lg3 collected. 19:24 Melissa Hendrickson, RN is Primary Nurse. lg3 19:30 EKG done, by technical solution architect. as7 20:21 Urine Microscopic Only Sent. lg3 22:17 No provider procedures requiring assistance completed. IV discontinued, intact, lg3 bleeding controlled, No redness/swelling at site. Pressure dressing applied. Administered Medications: 21:33 Discontinued: Potassium Chloride 20 mEq IV at calculated rate once; administer over 1-2 lg3 hours 19:51 Drug: NS 0.9% 500 ml Route: IV; Rate: calculated rate; Site: left antecubital; ke1 21:33 Follow up: IV Status: Infusion continued; IV Intake: 500ml lg3 20:12 Drug: NS 0.9% 500 ml Route: IV; Rate: 250 ml/hr; Site: left antecubital; lg3 21:33 Follow up: IV Status: Completed infusion; IV Intake: 500ml lg3 20:12 Drug: Potassium Chloride 20 mEq Route: IV; Rate: calculated rate; Site: left ke1 antecubital; 21:06 Drug: Potassium Effervescent Tablet 50 mEq Route: PO; ke1 21:34 Follow up: Response: No adverse reaction lg3 Medication: 18:59 VIS not applicable for this client. ph Intake: 21:33 IV: 500ml; Total: 500ml. lg3 21:33 IV: 500ml; Total: 1000ml. lg3 Outcome: 22:02 Discharge ordered by MD. snw 22:17 Discharged to home ambulatory, with significant other. lg3 22:17 Condition: stable 22:17 Discharge instructions given to patient, Instructed on discharge instructions, follow up and referral plans. Demonstrated understanding of instructions, follow-up care. 22:18 Patient left the ED. lg3 Signatures: Carin Norman, PROFESSOR OF VIOLIN-C PROFESSOR OF VIOLIN-Csnw Raeann Langley RN LATONYA Brianna Moody RN RN hb Gibson, Lacie, RN RN lg3 Angelina Rae Kouassi, RN RN ke1 Abigail Schmid7 Corrections: (The following items were deleted from the chart) 20:58 20:11 Potassium Chloride 20 mEq IV at calculated rate in left antecubital lg3 snw
--- NOTE | 2022-12-07 22:03 | EDPHYS ---
Physician Documentation [facility] Name: Frida Arriola Age: 47 yrs Sex: Female : 1975 Arrival Date: 12/07/2022 Time: 18:26 Bed 4 Private MD: ED Physician Timothy Silva HPI: 12/07 18:54 This 47 yrs old Black Female presents to ER via Ambulatory with complaints of High snw Blood Pressure, Irregular Pulse. 18:54 Onset: The symptoms/episode began/occurred acutely. Associated signs and symptoms: snw Pertinent positives: weakness. Severity of symptoms: At its worst the blood pressure was moderate. It is unknown whether or not the patient has had similar symptoms in the past. Pt had a TACE procedure at [facility]. Liver Coordinator: Madina Downey MD . Historical: - Allergies: 18:31 No Known Allergies; hb - Immunization history:: Adult Immunizations unknown. - Social history:: Smoking status: unknown. ROS: 18:53 Eyes: Negative for injury, pain, redness, and discharge, ENT: Negative for injury, snw pain, and discharge, Neck: Negative for injury, pain, and swelling, Cardiovascular: Negative for chest pain, palpitations, and edema, Respiratory: Negative for shortness of breath, cough, wheezing, and pleuritic chest pain. 18:53 Back: Negative for injury and pain, MS/Extremity: Negative for injury and deformity, Skin: Negative for injury, rash, and discoloration, Neuro: Negative for headache, weakness, numbness, tingling, and seizure. 18:53 Constitutional: Positive for body aches, fatigue, malaise. 18:53 Abdomen/GI: Positive for abdominal pain, of the right upper quadrant and right lower quadrant. Exam: 18:50 Head/Face: Normocephalic, atraumatic. Eyes: Pupils equal round and reactive to light, snw extra-ocular motions intact. Lids and lashes normal. Conjunctiva and sclera are non-icteric and not injected. Cornea within normal limits. Periorbital areas with no swelling, redness, or edema. ENT: Nares patent. No nasal discharge, no septal abnormalities noted. Tympanic membranes are normal and external auditory canals are clear. Oropharynx with no redness, swelling, or masses, exudates, or evidence of obstruction, uvula midline. Mucous membranes moist. Neck: Trachea midline, no thyromegaly or masses palpated, and no cervical lymphadenopathy. Supple, full range of motion without nuchal rigidity, or vertebral point tenderness. No Meningismus. Chest/axilla: Normal chest wall appearance and motion. Nontender with no deformity. No lesions are appreciated. Cardiovascular: Regular rate and rhythm with a normal S1 and S2. No gallops, murmurs, or rubs. Normal PMI, no JVD. No pulse deficits. Respiratory: Lungs have equal breath sounds bilaterally, clear to auscultation and percussion. No rales, rhonchi or wheezes noted. No increased work of breathing, no retractions or nasal flaring. Back: No spinal tenderness. No costovertebral tenderness. Full range of motion. Skin: Warm, dry with normal turgor. Normal color with no rashes, no lesions, and no evidence of cellulitis. multiple punctate scars to extremities. Puncture wound from recent TACE procedure to right inguinal area, no ecchymosis, mild edema, tender to upper and lower right abdomen MS/ Extremity: Pulses equal, no cyanosis. Neurovascular intact. Full, normal range of motion. Neuro: Awake and alert, GCS 15, oriented to person, place, time, and situation. Cranial nerves II-XII grossly intact. Motor strength 5/5 in all extremities. Sensory grossly intact. Cerebellar exam normal. Normal gait. Psych: Awake, alert, with orientation to person, place and time. Behavior, mood, and affect are within normal limits. 18:50 Constitutional: The patient appears alert, listless. 18:53 Abdomen/GI: Inspection: scar(s), are noted in the epigastric area, umbilical area, snw right upper quadrant and left upper quadrant, Bowel sounds: normal, in all quadrants. Vital Signs: 18:28 BP 129 / 86; Pulse 97; Resp 16; Temp 97.4; Pulse Ox 100% on R/A; Weight 86.18 kg; hb Height 5 ft. 5 in. (165.10 cm); Pain 0/10; 19:52 BP 128 / 87; Pulse 94; Resp 20; Pulse Ox 100% on R/A; lg3 20:36 BP 140 / 83; Pulse 92; Resp 22; Pulse Ox 100% ; Pain 0/10; ke1 21:39 BP 143 / 89; Pulse 82; Resp 19; Pulse Ox 100% on R/A; Pain 0/10; lg3 22:17 BP 139 / 89; Pulse 83; Resp 19 S; Pulse Ox 100% on R/A; Pain 0/10; lg3 18:28 Body Mass Index 31.62 (86.18 kg, 165.10 cm) hb MDM: 18:32 Patient medically screened. snw 20:58 Differential diagnosis: dehydration, hypokalemia, surgical site bleeding. Data snw interpreted: Pulse oximetry: on room air is 100 %. Interpretation: normal. Data reviewed: vital signs, nurses notes, lab test result(s). External Records Reviewed: Outpatient record: Epic chart from [facility] post TACE procedure on Friday of this week. Care significantly affected by the following chronic conditions: Liver Disease, HCC. Counseling: I had a detailed discussion with the patient and/or guardian regarding: the historical points, exam findings, and any diagnostic results supporting the discharge/admit diagnosis, the presence of at least one elevated blood pressure reading (>120/80) during this emergency department visit, lab results, the need for outpatient follow up, to return to the emergency department if symptoms worsen or persist or if there are any questions or concerns that arise at home. Response to treatment: the patient's symptoms have mildly improved after treatment, the patient's symptoms have markedly improved after treatment. Special discussion: Based on the history and exam findings, there is no indication for further emergent testing or inpatient evaluation. I discussed with the patient/guardian the need to see the primary care provider for further evaluation of the symptoms. Hepatology. 12/07 19:00 Order name: CBC with Diff; Complete Time: 19:51 snw 12/07 19:00 Order name: CMP; Complete Time: 19:51 snw 12/07 19:00 Order name: Lipase; Complete Time: 19:51 snw 12/07 19:00 Order name: Urine Microscopic Only; Complete Time: 20:41 snw 12/07 20:21 Order name: Urine Dipstick-Ancillary; Complete Time: 20:26 EDMS 12/07 19:00 Order name: IV Saline Lock; Complete Time: 19:24 snw 12/07 19:00 Order name: Labs collected and sent; Complete Time: 19:24 snw 12/07 19:00 Order name: Urine Dipstick-Ancillary (obtain specimen); Complete Time: 20: snw 12/07 19:24 Order name: EKG; Complete Time: :25 lg3 EC:29 Rate is 94 beats/min. Rhythm is regular. T waves are Inverted in lead V2. Clinical snw impression: NSR w/ Non-specific ST/T Changes. Administered Medications: 21:33 Discontinued: Potassium Chloride 20 mEq IV at calculated rate once; administer over 1-2 lg3 hours 19:51 Drug: NS 0.9% 500 ml Route: IV; Rate: calculated rate; Site: left antecubital; ke1 21:33 Follow up: IV Status: Infusion continued; IV Intake: 500ml lg3 20:12 Drug: NS 0.9% 500 ml Route: IV; Rate: 250 ml/hr; Site: left antecubital; lg3 21:33 Follow up: IV Status: Completed infusion; IV Intake: 500ml lg3 20:12 Drug: Potassium Chloride 20 mEq Route: IV; Rate: calculated rate; Site: left ke1 antecubital; 21:06 Drug: Potassium Effervescent Tablet 50 mEq Route: PO; ke1 21:34 Follow up: Response: No adverse reaction lg3 Disposition Summary: 12/07/22 22:02 Discharge Ordered Location: Home snw Condition: Stable snw Diagnosis - Dehydration snw - Hypokalemia snw Followup: snw - With: Emergency Department - When: As needed - Reason: Worsening of condition Followup: snw - With: Private Physician - When: 1 - 2 days - Reason: Recheck today's complaints, Continuance of care, Re-evaluation by your physician Discharge Instructions: - Discharge Summary Sheet snw - Dehydration, Adult snw - Potassium Content of Foods snw - Hypokalemia snw - Rehydration, Adult snw Forms: - Medication Reconciliation Form snw - Thank You Letter snw - Antibiotic Education snw - Prescription Opioid Use snw Signatures: Dispatcher [employer] EDMS Carin Norman FNP-C MEDICAL OFFICE REPRESENTATIVE-Csnw Raeann Langley RN RN Brianna Moody RN RN Melissa Hendrickson RN RN lg3 Ebrottie, Kouassi, RN RN ke1
[2022-12-07 23:15] VITALS: TEMP 98.2
[2022-12-07 23:18] VITALS: BP 103/65; O2SAT 97
--- NOTE | 2022-12-09 18:43 | EKG ---
Test Date: 2022-12-07 Test Time: 19:29:03 Business Banking Sales Assistant: MEASUREMENT RESULTS: Intervals: Rate: 94 CA: 166 QRSD: 100 QT: 354 QTc: 442 [place]: P: 68 CA: 166 QRS: 16 T: 63 INTERPRETIVE STATEMENTS: Normal sinus rhythm Voltage criteria for left ventricular hypertrophy Nonspecific ST and T wave abnormality Abnormal ECG Compared to ECG 01/21/2021 14:54:12 ST (T wave) deviation now present Electronically Signed On 12-09-22 18:40:25 STORAGE CONSULTANT by Ahmet Portillo
== END 2022-12-07 22:18 | disposition home or self-care (01) ==
LOC: ER 18:23
DX: E86.0 Dehydration (principal); E87.6 Hypokalemia; Z98.890 Other specified postprocedural states
CPT/HCPCS: 96361; 93005; 85025; 36415; 83690; 80053; 96374; 99285; J3480; J7040 ×2; 81003; 81015